=== PATIENT | female | born 1965 | race Caucasian/White ===

== ENCOUNTER 2022-05-23 14:54 | Inpatient (IN) | payer OTHER, SELFPAY ==
[2022-05-23] VITALS (8 sets, daily range): BP systolic 121–163; BP diastolic 80–98; PULSE 103–110; RESP 18–25; TEMP 37; O2SAT 92–95; BMI 27.8; BMI 28.2
--- NOTE | 2022-05-23 15:54 | ED_ITS ---
HPI - General Adult General Time Seen by Provider: 15:53 Date Seen: 05/23/22 Chief complaint: Weakness Stated complaint: covid+, possible pnuemonia Time Seen by Provider: 05/23/22 15:16 Source: patient History of Present Illness HPI narrative: 57-year-old female who comes in today with shortness of breath and weakness. Patient was diagnosed with COVID about 12 days ago. Increased shortness of breath the dressed couple of days with low oxygen saturation home. She is taking Tylenol for symptoms with minimal improvement. No nausea vomiting, decreased appetite but is maintaining fluids. No diarrhea. Some sinus congestion. No chest pain, no increasing lower extremity swelling. Continued nonproductive cough. Related Data Allergies Allergy/AdvReac Type Severity Reaction Status Date / Time iron dextran complex Allergy Verified 05/23/22 15:48 Sulfa (Sulfonamide Allergy Verified 05/23/22 15:48 Antibiotics) narcotic Allergy Uncoded 05/23/22 15:48 Review of Systems Status of ROS: Reports: 10 or more systems reviewed and unremarkable except as noted in History and below [facility] Medical History (Updated 05/23/22 @ 17:22 by See Barnard MD) Avascular necrosis Hypertension Kidney transplant as cause of abnormal reaction or later complication Lupus Multiple sclerosis Skin cancer Surgical History (Updated 05/23/22 @ 17:22 by See Barnard MD) History of hip replacement History of knee replacement Organ or tissue replacement Social History Smoking Status: Never smoker Do you use any of these nicotine containing products: None Second hand tobacco smoke exposure: No How often do you have a drink containing alcohol: never How often do you have six or more drinks on one occasion: Never AUDIT-C Alcohol total score: 0 Non-prescribed substance use: denies use service: No Exam Const: Vital Signs, click to edit/add: Vital Signs - 24 hr 05/23/22 15:13 05/23/22 15:30 05/23/22 16:00 Pulse Rate [Apical ] 105 H 106 H 103 H Respiratory Rate 24 23 23 Blood Pressure [Le ft Upper Arm] 144/89 H 121/82 125/80 Pulse Oximetry 92 94 93 05/23/22 16:30 05/23/22 17:00 Pulse Rate [Apical ] 103 H Respiratory Rate 25 H Blood Pressure [Le ft Upper Arm] 132/82 Pulse Oximetry 95 93 Documenting provider has reviewed patient's vital signs: yes Common normals: no apparent distress, oriented x3, alert and well nourished HENMT: Common normals: normocephalic, head/scalp atraumatic, external ears normal and external nose normal Head and scalp: normocephalic and atraumatic Nose: external nose normal External ear: external ears normal Eye: Common normals: PERRL and conjunctivae normal Conjunctiva: conjunctiva(e) normal Pupil: PERRL Neck & C-Spine: Common normals: full ROM, no lymphadenopathy and supple Chest: Common normals: palpation of chest normal Resp: Common normals: normal respiratory effort Other: Trace crackles on the right, decreased air movement on the left Cardio: Common normals: regular rhythm and no murmurs Rate: tachycardic Rhythm: regular rhythm GI: Common normals: Normal to inspection, nondistended, normoactive bowel sounds present, soft to palpation and non-tender Palpation: soft : Common normals: no CVA tenderness Bladder/kidney exam: no CVA tenderness Back & Pelvis: Common normals: no CVA tenderness and thoracic and lumbar spine normal to inspection Extremity: Common normals: normal to inspection, full ROM and no pedal edema Neuro: Common normals: oriented x3, CN's II-XII intact bilaterally and no focal motor deficits Sensorium/orientation: alert Psych: Common normals: mental status grossly normal Skin: Common normals: no rashes or lesions noted General skin exam: no rashes or lesions noted Course Course Hospital Course: Patient seen and examined, prior records are reviewed. Patient presents with cough and shortness of breath, known COVID positive. Differential diagnosis includes but not limited to bacterial pneumonia, bronchitis, COVID infection, pulmonary embolism, heart failure. Trace crackles on lung exam of the right, diminished breath sounds on left but air movement is present. No wheezes. Tachycardic. Concern for possible PE, labs and D-dimer ordered, IV fluids and DuoNeb was ordered along with chest x-ray. Reevaluation(s) Reevaluation #1: Updated patient with findings so far which include elevated creatinine to 3 an elevated BUN as well as bicarb of 15. This most likely is related to dehydration, IV fluids of already been initiated. D-dimer is still pending. Will contact [place] transplant service to discuss. Plan for admission. Time: 17:30 Consultations Consultation #1: Called [place] admission and transfer center to discuss with Transplant Service Time: 17:30 Consultation #2: Care discussed with Dr. Washington, hospitalist who accepts the patient for observation. Time: 17:45 Vital Signs Vital signs: Initial Vital Signs Temperature Source Temporal Artery Scan 05/23/22 15:13 Pulse Rate 105 H 05/23/22 15:13 Pulse Rhythm 05/23/22 15:13 Respiratory Rate 24 05/23/22 15:13 Blood Pressure 144/89 H 05/23/22 15:13 Blood Pressure Mean 107 05/23/22 15:13 Blood Pressure Position Supine 05/23/22 15:13 Pulse Oximetry 92 05/23/22 15:13 Oxygen Delivery Method 05/23/22 15:13 Vital Signs Pulse Rate 105 H 05/23/22 15:13 Respiratory Rate 24 05/23/22 15:13 Blood Pressure 144/89 H 05/23/22 15:13 Pulse Oximetry 92 05/23/22 15:13 Pulse Rate 103 H 05/23/22 16:30 Respiratory Rate 25 H 05/23/22 17:00 Blood Pressure 132/82 05/23/22 16:30 Pulse Oximetry 93 05/23/22 17:00 Medical Decision Making Medical Records Medical records reviewed: Yes I reviewed the patient's medical records Lab Data Lab results reviewed: Yes I reviewed the patient's lab results Labs: Lab Results 05/23/22 05/23/22 05/23/22 Range/Units 16:15 16:15 16:15 WBC (4.50-11.00) K/uL RBC (4.00-5.20) m/uL Hgb (12.0-16.0) gm/dL Hct (33.0-51.0) % MCV (80-100) fL MCH (26-34) pg MCHC (32-36) gm/dL RDW Coeff of Benja (11.5-15.5) % Plt Count (140-440) K/uL Neut % (Auto) (42.0-72.0) % Lymph % (Auto) (20-44) % [place] % (Auto) (0.0-11.0) % Eos % (Auto) (0.0-7.0) % Baso % (Auto) (0.0-3.0) % Neut # (Auto) (1.7-7.0) K/uL Lymph # (Auto) (0.90-2.90) K/uL [place] # (Auto) (0.00-0.90) K/UL Eos # (Auto) (0.00-0.50) K/uL Baso # (Auto) (0.00-0.30) K/uL Abs Immat Gran (auto) (0.00-0.30) K/uL D-Dimer Quant (PE/DVT) 0.93 H (0.00-0.50) ug/ml Sodium 134 L (135-149) mmol/L Potassium 5.5 H (3.6-5.1) mmol/L Chloride 106 (96-114) mmol/L Carbon Dioxide 15 L (20-32) mmol/L BUN 55 H (7-30) mg/dL Creatinine 3.0 H (0.5-1.5) mg/dL Estimated Creat Clear 17.53 Glucose 125 H (60-115) mg/dL Calcium 8.7 (8.4-10.6) mg/dL NT-Pro-B Natriuret Pep 1070 H Cancelled (0-125) PG/mL SARS-CoV-2 Ag (Rapid) POC Troponin I (0.01-0.04) ng/ml 05/23/22 05/23/22 05/23/22 Range/Units 16:15 16:15 17:50 WBC 11.56 H (4.50-11.00) K/uL RBC 3.32 L (4.00-5.20) m/uL Hgb 9.9 L (12.0-16.0) gm/dL Hct 30.6 L (33.0-51.0) % MCV 92 (80-100) fL MCH 30 (26-34) pg MCHC 32 (32-36) gm/dL RDW Coeff of Benja 14.9 (11.5-15.5) % Plt Count 234 (140-440) K/uL Neut % (Auto) 90.0 H (42.0-72.0) % Lymph % (Auto) 4.3 L (20-44) % [place] % (Auto) 4.2 (0.0-11.0) % Eos % (Auto) 0.0 (0.0-7.0) % Baso % (Auto) 0.2 (0.0-3.0) % Neut # (Auto) 10.40 H (1.7-7.0) K/uL Lymph # (Auto) 0.50 L (0.90-2.90) K/uL [place] # (Auto) 0.50 (0.00-0.90) K/UL Eos # (Auto) 0.00 (0.00-0.50) K/uL Baso # (Auto) 0.00 (0.00-0.30) K/uL Abs Immat Gran (auto) 0.15 (0.00-0.30) K/uL D-Dimer Quant (PE/DVT) (0.00-0.50) ug/ml Sodium (135-149) mmol/L Potassium (3.6-5.1) mmol/L Chloride (96-114) mmol/L Carbon Dioxide (20-32) mmol/L BUN (7-30) mg/dL Creatinine (0.5-1.5) mg/dL Estimated Creat Clear Glucose (60-115) mg/dL Calcium (8.4-10.6) mg/dL NT-Pro-B Natriuret Pep (0-125) PG/mL SARS-CoV-2 Ag (Rapid) Cancelled POC Troponin I 0.00 L (0.01-0.04) ng/ml Imaging Data Chest x-ray: My impression: Bilateral infiltrates, worse on the right Radiologist's impression: Agrees ECG Data Attestation: I personally reviewed and interpreted this ECG as follows: Prior ECG tracings: not available for review Interpretation: Performed at 3:40 p.m. demonstrates sinus tachycardia rate 101, normal axis, normal intervals, QTC was 435. No prior for comparison. Discharge Plan Discharge Clinical Impression: Acute kidney injury, COVID-19 virus infection, H/O kidney transplant Patient Disposition: Admitted As Inpatient
--- NOTE | 2022-05-23 15:58 | XR_ITS ---
Final Report Patient: FAUSTO BAUTISTA Facility:?[facility] Patient ID:?[id number] Site Patient ID:?[id number]. Site :?[id number] Study:?XRay Chest PORTABLE-05/23/2022 4:17:30 PM Ordering Physician:Jacinta Cui Final Report: Indication: Dyspnea. Technique: AP portable view of the chest. Comparison: May 19, 2022. Findings: The heart is normal in size. Bilateral lower lobe infiltrates are identified, larger on the right than the left. No pleural effusion or pneumothorax is identified. Impression: Bilateral lower lobe infiltrates, greater on the right than the left Dictated by Jennie Pleitez MD @ 05/23/2022 4:59:38 PM (Electronic Signature)
[2022-05-23] MEDS: 0.9 % SODIUM CHLORIDE 1000 ml 1,000 ML IV (16:19)
[2022-05-23] MEDS: IPRAT-ALBUT 0.5-2.5 MG/3 ML NEB 1 NEB IH (16:33)
[2022-05-23 17:08] LABS: Chloride* 106 mmol/L (96-114); Potassium* 5.5 mmol/L (3.6-5.1); Sodium* 134 mmol/L (135-149)
[2022-05-23 17:11] LABS: Est. Creatinine Clearance* 17.53
[2022-05-23 17:12] LABS: Blood Urea Nitrogen* 55 mg/dL (7-30); Calcium* 8.7 mg/dL (8.4-10.6); Carbon Dioxide* 15 mmol/L (20-32); Glucose* 125 mg/dL (60-115)
[2022-05-23] MEDS: LACTATED RINGERS 1000 ML 1,000 ML IV (17:20)
[2022-05-23] MEDS: ACETAMINOPHEN 325 MG TABLET 650 MG PO (17:26)
[2022-05-23 17:32] LABS: D Dimer Quantitative* 0.93 ug/ml (0.00-0.50)
[2022-05-23 17:33] LABS: Slide Review Reflex No
[2022-05-23 17:36] LABS: Basophils Percent Auto 0.2 % (0.0-3.0); Hematocrit 30.6 % (33.0-51.0); Hemoglobin* 9.9 gm/dL (12.0-16.0); Immature Granulocytes Abs Auto 0.15 K/uL (0.00-0.30); Lymphocytes Percent Auto 4.3 % (20-44); Mean Corpuscular HGB Conc 32 gm/dL (32-36); Mean Corpuscular Hemoglobin 30 pg (26-34); Mean Corpuscular Volume 92 fL (80-100); Monocytes Percent Auto 4.2 % (0.0-11.0); Platelet Count* 234 K/uL (140-440); RDW Coefficient of Variation % 14.9 % (11.5-15.5); Red Blood Count 3.32 m/uL (4.00-5.20); White Blood Count* 11.56 K/uL (4.50-11.00)
--- NOTE | 2022-05-23 17:37 | ED.NURSE ---
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 dr baires did explain plan. was tearful. in room and is very supportive.
[2022-05-23 17:49] LABS: NT Pro B Type NatriureticPept* 1070 PG/mL (0-125)
[2022-05-23 18:24] LABS: SARS Antigen* POSITIVE
--- NOTE | 2022-05-23 18:43 | ED.NURSE ---
was ok to give a sandwich per dr baires. thought her abd discomfort was from not eating. awaiting admission.
--- NOTE | 2022-05-23 19:41 | P.IMHP_ITS ---
Hospitalist- H&P: HPI History of Present Illness Time Seen by Provider: 19:40 Date Seen: 05/23/22 Chief complaint: covid+, possible pnuemonia Narrative: Holley Santos is a 57 year old female who presents with 12 day history of worsening fatigue, malaise, weakness, cough, dyspnea, anorexia, diarrhea, loss of taste and smell. About 12 days ago she had a positive COVID test. She had just begun to have symptoms of illness. She tested positive on May 11 for COVID infection. For the 1st several days she was doing quite well. She did not receive any treatment with antiviral is a or monoclonal antibody. She had had monoclonal antibody earlier this year. In the last several days he has gotten much worse with all of her symptoms getting worse. She has had intractable nonproductive cough. She has been feeling short of breath. Oxygen saturations at home have been in the low 90s. She is not aware of a fever but reports she rarely gets fevers when she is sick because of her immunosuppression. She has had diarrhea which she thinks in the last day or 2 might be getting a little better. She has had anorexia. She has had little to eat and drink. No vomiting. She had decreased sense of smell and taste. She has profound fatigue and malaise. She spent the weekend in bed. She has previously had a kidney transplant x2. She has stage 4 kidney disease with her creatinine normally around 2.1 and a GFR in the low 20s. She is on routine immunosuppression with prednisone 5 mg, CellCept, Prograf. Review of Systems Narrative: complete review of systems is unremarkable except as noted above. [facility] Medical History (Updated 05/23/22 @ 19:53 by Mesfin Washington MD) Acute on chronic kidney failure Anemia in chronic kidney disease Avascular necrosis Dyslipidemia Hypertension Immunosuppression Kidney transplant as cause of abnormal reaction or later complication Lupus Lupus glomerulonephritis Multiple sclerosis Pneumonia Skin cancer Stage 4 chronic kidney disease Surgical History (Updated 05/23/22 @ 19:53 by Mesfin Washington MD) H/O ankle fusion History of hip replacement History of knee replacement Organ or tissue replacement Family History (Updated 05/23/22 @ 19:47 by Mesfin Washington MD) Other Breast cancer Social History Smoking Status: Never smoker Do you use any of these nicotine containing products: None Second hand tobacco smoke exposure: No How often do you have a drink containing alcohol: never How often do you have six or more drinks on one occasion: Never AUDIT-C Alcohol total score: 0 Non-prescribed substance use: denies use service: No Meds Home Medications and Allergies Home Medications Medication Instructions Recorded Confirmed Type albuterol sulfate 90 mcg/actuation 2 inh INHALATION Q4H PRN 05/23/22 05/23/22 History aerosol inhaler allopurinol 100 mg tablet 200 mg PO DAILY 05/23/22 05/23/22 History amlodipine 2.5 mg tablet 2.5 mg PO DAILY 05/23/22 05/23/22 History atorvastatin 10 mg tablet 10 mg PO HS 05/23/22 05/23/22 History calcitriol 0.25 mcg capsule 0.25 mcg PO DAILY 05/23/22 05/23/22 History codeine 10 mg-guaifenesin 100 mg/5 5 ml PO Q4H PRN 05/23/22 05/23/22 History mL oral liquid estradiol 1 mg tablet 1 mg PO DAILY 05/23/22 05/23/22 History furosemide 20 mg tablet 20 mg PO DAILY 05/23/22 05/23/22 History lisinopril 20 mg tablet 20 mg PO DAILY 05/23/22 05/23/22 History metoprolol succinate 25 mg 25 mg PO DAILY 05/23/22 05/23/22 History tablet,extended release 24 hr mycophenolate mofetil 250 mg 250 mg PO BID 05/23/22 05/23/22 History capsule prednisone 5 mg tablet 15 mg PO DAILY 05/23/22 05/23/22 History progesterone micronized 200 mg 200 mg PO DAILY 05/23/22 05/23/22 History capsule sodium bicarbonate 650 mg tablet 1,300 mg PO BID 05/23/22 05/23/22 History tacrolimus 1 mg capsule, 2 mg PO Q12H 05/23/22 05/23/22 History immediate-release (Prograf) Allergies Allergy/AdvReac Type Severity Reaction Status Date / Time iron dextran complex Allergy Verified 05/23/22 15:48 Sulfa (Sulfonamide Allergy Verified 05/23/22 15:48 Antibiotics) narcotic Allergy Uncoded 05/23/22 15:48 Exam Narrative: Exam Narrative: she is alert and appears in no distress. Head is normal. Eyes normal. Oropharynx with small airway. Neck is supple without mass or adenopathy. Respirations with a rare basilar crackle. Otherwise clear to auscultation. Cardiovascular: S1, S2, regular rate and rhythm. Abdomen: Bowel sounds active. Abdomen is soft without tenderness or mass. External genitalia normal. Extr emities without edema. She has intact pedal pulses. Feet are somewhat cool to touch. There is no rash. Const: Vital Signs, click to edit/add: Vital Signs - 24 hr 05/23/22 15:13 05/23/22 15:30 05/23/22 16:00 Pulse Rate [Apical ] 105 H 106 H 103 H Respiratory Rate 24 23 23 Blood Pressure [Le ft Upper Arm] 144/89 H 121/82 125/80 Pulse Oximetry 92 94 93 05/23/22 16:30 05/23/22 17:00 05/23/22 17:30 Pulse Rate [Apical ] 103 H 110 H Respiratory Rate 25 H 18 Blood Pressure [Le ft Upper Arm] 132/82 147/83 H Pulse Oximetry 95 93 95 Hospitalist - H&P: Result Labs Labs: Short CBC 05/23/22 Range/Units 16:15 WBC 11.56 H (4.50-11.00) K/uL Hgb 9.9 L (12.0-16.0) gm/dL Hct 30.6 L (33.0-51.0) % Plt Count 234 (140-440) K/uL BMP 05/23/22 16:15 Sodium 134 L Potassium 5.5 H Chloride 106 Carbon Dioxide 15 L BUN 55 H Creatinine 3.0 H Glucose 125 H Calcium 8.7 Assessment and Plan Assessment and plan (1) Pneumonia: Status: Acute (2) Acute on chronic kidney failure: Status: Acute (3) Immunosuppression: Status: Acute (4) COVID-19 virus infection: Status: Acute Plan patient has relatively classic COVID infection with bilateral infiltrates on chest x-ray. Her course has been more severe and prolonged likely due to immunosuppression and chronic medical problems. Going to initiate antibiotics for community-acquired pneumonia given radiographic findings and her immunosuppression. If she is clinically improving these can be discontinued. She has not yet hypoxic so I will hold off on dexamethasone but will give her stress dose of prednisone at 3 Times her usual dose for 3 days pending her clinical course. 15 mg of prednisone daily for 3 days. If increasing inflammatory markers or worsening illness consider further increase in steroid dose. due to kidney disease and the timing of her illness she is a poor ruddy date for antivirals. Acute on chronic kidney disease. Normal creatinine is 2.1 now 3.0. Likely due to poor p.o. intake. She has been given IV fluids. Will continue maintenance fluids until her oral intake improves. Close monitoring of electrolytes, Renal function, fluid status and intake and output. temporary hold on lisinopril. Status post renal transplant. Continue normal doses of immunosuppression plus mild stress dose prednisone
[2022-05-23] MEDS: AZITHROMYCIN 250 MG TABLET PO (21:16)
[2022-05-23] MEDS: 0.9 % SODIUM CHLORIDE 1000 ml 1,000 ML 125 ML IV (21:23)
[2022-05-23] MEDS: cefTRIAXone 1 GM in 0.9 % SODIUM CHLORIDE Mini-bag 100 ML IVPB (21:26)
[2022-05-23] MEDS: SODIUM BICARBONATE 650 MG TABLET 1300 MG PO (22:30)
[2022-05-23] MEDS: estradioL 1 MG TABLET PO (22:31)
[2022-05-23] MEDS: ALBUTEROL SULFATE 2.5 MG/3 ML VIAL.NEB NEB (22:31)
[2022-05-23] MEDS: PROGESTERONE MICRONIZED 200 MG 200 EACH PO (22:33)
[2022-05-23] MEDS: mycophenolate mofetiL 250 MG CAPSULE PO (22:33)
[2022-05-24] VITALS (11 sets, daily range): BP systolic 142–166; BP diastolic 85–99; PULSE 100–114; RESP 18–24; TEMP 37.2–37.4; O2SAT 91–95
[2022-05-24] MEDS: ACETAMINOPHEN 325 MG TABLET PO ×2 (02:13→08:54)
--- NOTE | 2022-05-24 05:04 | PC.NURSE ---
Pt arrived from ED approx 2014, pleasant and cooperative. Pt appears anxious and worried about hospital admission. pt with non-productive cough throughout shift, lung sounds clear, diminished at bases, denies chest pain or headache. c/o sob at rest and with exertion. Pt desat to 88% on RA while sleeping, placed O2 1 LPM NC on pt to help maintain o2 >90% while sleeping. independent in room, pt removed nc to ambulate to br, upon return o2 sats dipped down to 82%, recovered quickly once NC placed back on. longer O2 tubing placed in room and encouraged pt to wear o2 while ambulating to br, pt compliant. 2 big zip lock bags of Pt home meds in room specific bin in med room waiting for pharmacy verification. pt requesting to use all home meds.
[2022-05-24] MEDS: 0.9 % SODIUM CHLORIDE 1000 ml 1,000 ML 125 ML IV (05:51)
[2022-05-24 07:33] LABS: Slide Review Reflex No
[2022-05-24 07:34] LABS: HCO3 VBG 16 mmol/L (21-28); PCO2 VBG 31 mmHG (40-50); PO2 VBG 35.3 mmHG (25-47); pH VBG 7.312 (7.32-7.43)
[2022-05-24 07:44] LABS: Hematocrit 27.6 % (33.0-51.0); Hemoglobin* 8.9 gm/dL (12.0-16.0); Mean Corpuscular HGB Conc 32 gm/dL (32-36); Mean Corpuscular Hemoglobin 30 pg (26-34); Mean Corpuscular Volume 93 fL (80-100); Platelet Count* 216 K/uL (140-440); Red Blood Count 2.97 m/uL (4.00-5.20); White Blood Count* 9.65 K/uL (4.50-11.00)
[2022-05-24 07:55] LABS: Chloride* 115 mmol/L (96-114); Sodium* 136 mmol/L (135-149)
[2022-05-24 07:56] LABS: Potassium* 4.8 mmol/L (3.6-5.1)
[2022-05-24 07:58] LABS: Creatinine* 2.2 mg/dL (0.5-1.5); Estimated Glomerular Filt Rate 25.83
[2022-05-24 07:59] LABS: Blood Urea Nitrogen* 45 mg/dL (7-30); Calcium* 7.5 mg/dL (8.4-10.6); Carbon Dioxide* 14 mmol/L (20-32); Glucose* 83 mg/dL (60-115)
[2022-05-24] MEDS: ALBUTEROL SULFATE 2.5 MG/3 ML VIAL.NEB NEB ×2 (08:56→15:46)
[2022-05-24] MEDS: allopurinoL 100 MG TABLET 200 MG PO (09:16)
[2022-05-24] MEDS: calcitrioL 0.25 MCG CAPSULE PO (09:17)
[2022-05-24] MEDS: FUROSEMIDE 20 MG TABLET PO (09:17)
[2022-05-24] MEDS: METOPROLOL SUCCINATE (XL) 25 MG TAB PO (09:18)
[2022-05-24] MEDS: mycophenolate mofetiL 250 MG CAPSULE PO ×2 (09:20→21:03)
[2022-05-24] MEDS: AMLODIPINE 2.5 MG PO (09:21)
[2022-05-24] MEDS: predniSONE 5 MG TABLET 15 MG PO (09:22)
[2022-05-24] MEDS: SODIUM BICARBONATE 650 MG TABLET 1300 MG PO ×2 (09:22→20:59)
[2022-05-24] MEDS: TACROLIMUS 1 MG PO ×2 (09:23→21:01)
[2022-05-24] MEDS: ONDANSETRON ODT 4 MG TAB PO (09:25)
--- NOTE | 2022-05-24 09:57 | CT_ITS ---
Final Report Patient: FAUSTO BAUTISTA Facility:?[facility] Patient ID:?[id number] Site Patient ID:?[id number]. Site :?[id number] Study:?CT Chest W/O-05/24/2022 11:15:57 AM Ordering Physician:Arline Belcher Final Report: Indication: COVID, hypoxia. Technique: CT of the chest without IV contrast. Coronal and sagittal reconstructions. Comparison: Chest radiograph 05/23/2022. Findings: Mild cardiomegaly. Normal caliber thoracic aorta and central pulmonary arteries. Coronary artery and mitral annulus calcifications. No pericardial effusion. Few mildly prominent mediastinal lymph nodes are likely reactive. The thyroid gland is normal in appearance. There are extensive patchy infiltrates throughout both lungs compatible with COVID pneumonia. These are greatest in the lower lungs. Trace right pleural effusion. No pneumothorax. No discrete pulmonary nodules identified. No central endobronchial lesion. Elevation of the right hemidiaphragm. The gallbladder is distended with surrounding inflammation. Marked atrophy of both kidneys. The visualized unenhanced upper abdomen is otherwise unremarkable. Mild degenerative changes of the spine. Multiple small scattered sclerotic lesions could represent bone islands but indeterminate. Sclerosis in both humeral heads may be related to avascular necrosis. Old right posterior rib fractures. Impression: 1. Extensive bilateral pulmonary infiltrates compatible with COVID pneumonia. 2. Mild cardiomegaly. Trace right pleural effusion. 3. Distended gallbladder with evidence of inflammation. Findings are concerning for cholecystitis. Recommend further evaluation with right upper quadrant ultrasound. 4. Marked bilateral renal atrophy. 5. Multiple small scattered osseous sclerotic lesions could represent bone islands but are indeterminate. Correlate with any history of malignancy. Please note that all CT scans at this facility use dose modulation, iterative reconstruction, and/or weight-based dosing when appropriate to reduce radiation dose to as low as reasonably achievable. Dictated by Oanh Nascimento MD @ 05/24/2022 12:06:48 PM ----- ADDENDUM ----- The report was faxed and confirmed received with Simi Mcdonald at 12:10 p.m. on 05/24/2022. Dictated by Oanh Nascimento MD @ May 24 2022 12:27PM (Electronic Signature)
--- NOTE | 2022-05-24 10:29 | RESP.RT ---
Spoke with Pt about COVID and her pneumonia. She is quite anxious. Answered all of her questions. Re assured her that RT was her and following her, and watching her vital signs. She is on 2L of oxygen with a SPO2 of 93% Nursing did give her a neb treatment Pt has a frequent dry harsh cough. BBS decreased but clear.
[2022-05-24] MEDS: ONDANSETRON 2 MG/ML inj 4 MG IVP (10:30)
[2022-05-24] MEDS: ATORVASTATIN 10 MG TABLET PO (10:47)
[2022-05-24] MEDS: dexAMETHasone 2 MG TABLET 6 MG PO (11:56)
--- NOTE | 2022-05-24 14:29 | P.IMPN_ITS ---
Progress Note: A&P Assessment and plan (1) Acute respiratory failure, unspecified whether with hypoxia or hypercapnia: Status: Acute Assessment and Plan: Patient is vaccinated. However now requiring 2 L of nasal cannula oxygen to keep sats greater than 90%. Originally her dose of oral prednisone was increased from 5-15 mg. I am holding this. I am starting dexamethasone 6 mg p.o. q.day. continue oxygen therapy as needed. (2) COVID-19 virus infection: Status: Acute Assessment and Plan: Day 13 of infection. Vaccinated been immunosuppressed. CT this morning shows bilateral opacities consistent with COVID. She continues on IV antibiotics but I am awaiting a procalcitonin. (3) Gallstones and inflammation of gallbladder without obstruction: Status: Acute Assessment and Plan: Awaiting abdominal ultrasound later today. Liver function panel and procalcitonin are pending. Patient denies any symptoms of specifically relating to acute cholecystitis. (4) Acute on chronic kidney failure: Status: Acute Assessment and Plan: RESHMA has improved. She is near her baseline of a creatinine of 2.2 this morning. (5) Organ or tissue replacement: Problem details: kidney transplant x2 Status: Acute Assessment and Plan: Noted. Patient would like to restart her THOMAS-inhibitor as soon as possible. Her hyperkalemia and creatinine have returned to her baseline. I will start this tomorrow. (6) Immunosuppression: Status: Acute Assessment and Plan: Plan Continued her home regimen. Subjective Interval history: Daily Progress Note - Hospital Medicine Day #: 2 CC: Shortness of breath, diarrhea, acute on chronic renal failure OVERNIGHT UPDATES FROM STAFF & MED, LAB, IMAGING UPDATES Patient feels a little stronger this morning and into the afternoon. Her appetite has returned. She was able to move about her room and sit in the chair for over an hour. She still becomes quite dyspneic with activity. Nursing staf marisela has had increased her oxygen to 2 L per nasal cannula to keep her sats greater than 90%. Specifically we discussed symptoms of acute cholecystitis and she denies any issue with abdominal bloating after eating, abdominal pain, nausea vomiting. She still has her gallbladder. And is not aware of any previous history. Blood pressure 142/88, 166/95 Pulse in the low 100s Respiratory rate 24 Pulse ox 95% on 2 L Weight 72.3 kilos Leukocytosis is downtrending 11.5-9.6 Hemoglobin is down 1 point. From 9.9-8.9. This is likely related to chronic renal disease. D-dimer 0.9 Blood gas shows very mild respiratory acidosis 7.3, pCO2 31, bicarb 16 This morning her creatinine is down to 2.2, 2.1 being her baseline. BUN is down to 45. She has a chronic metabolic acidosis related to chronic renal disease. C reactive protein is 8.0. BNP [address] chest this mornin. Extensive bilateral pulmonary infiltrates compatible with COVID pneumonia. 2. Mild cardiomegaly. Trace right pleural effusion. 3. Distended gallbladder with evidence of inflammation. Findings are concerning for cholecystitis. Recommend further evaluation with right upper quadrant ultrasound. 4. Marked bilateral renal atrophy. 5. Multiple small scattered osseous sclerotic lesions could represent bone islands but are indeterminate. Correlate with any history of malignancy. Review of Systems: See subjective Cardiac: No new chest pain/pressure/palpitations. Respiratory: Dyspnea may be marginally improved GI: No abdominal bloating Objective: Vitals: see above Lungs: Crackles bilaterally. Worse on the right. No wheezing. Cardiac: S1S2. Abdomen: Benign. Disposition/Potential discharge - Likely to return to previous living situation. Total time is 35 minutes with greater than 50% spent in counseling and coordination of care. Exam Const: Vital Signs, click to edit/add: Vital Signs - 24 hr 05/23/22 15:13 05/23/22 15:30 05/23/22 16:00 Temperature Pulse Rate [Apical ] 105 H 106 H 103 H Pulse Rate [Right Pulse Oximeter] Respiratory Rate 24 23 23 Blood Pressure [Le ft Upper Arm] 144/89 H 121/82 125/80 Blood Pressure [Ri ght Arm] Pulse Oximetry 92 94 93 05/23/22 16:30 05/23/22 17:00 05/23/22 17:30 Temperature Pulse Rate [Apical ] 103 H 110 H Pulse Rate [Right Pulse Oximeter] Respiratory Rate 25 H 18 Blood Pressure [Le ft Upper Arm] 132/82 147/83 H Blood Pressure [Ri ght Arm] Pulse Oximetry 95 93 95 05/23/22 20:28 05/23/22 23:22 05/24/22 00:14 Temperature 98.6 F 98.6 F Pulse Rate [Apical ] Pulse Rate [Right Pulse Oximeter] 107 H 108 H Respiratory Rate 20 18 Blood Pressure [Le ft Upper Arm] Blood Pressure [Ri ght Arm] 163/98 H 145/85 H Pulse Oximetry 93 92 93 05/24/22 03:04 05/24/22 07:00 05/24/22 07:58 Temperature 99.0 F 99.3 F Pulse Rate [Apical ] Pulse Rate [Right Pulse Oximeter] 110 H 104 H 114 H Respiratory Rate 20 Blood Pressure [Le ft Upper Arm] Blood Pressure [Ri ght Arm] 163/88 H 166/95 H Pulse Oximetry 91 92 05/24/22 11:00 Temperature 99.3 F Pulse Rate [Apical ] Pulse Rate [Right Pulse Oximeter] 107 H Respiratory Rate 24 Blood Pressure [Le ft Upper Arm] Blood Pressure [Ri ght Arm] 142/88 H Pulse Oximetry 95 Labs Labs: Laboratory Results - last 24 hr 05/23/22 05/23/22 05/23/22 16:15 16:15 16:15 WBC RBC Hgb Hct MCV MCH MCHC RDW Coeff of Benja Plt Count Neut % (Auto) Lymph % (Auto) Mcleod % (Auto) Eos % (Auto) Baso % (Auto) Neut # (Auto) Lymph # (Auto) Mcleod # (Auto) Eos # (Auto) Baso # (Auto) Abs Immat Gran (auto) D-Dimer Quant (PE/DVT) 0.93 H VBG pH VBG pCO2 VBG pO2 VBG HCO3 Sodium 134 L Potassium 5.5 H Chloride 106 Carbon Dioxide 15 L BUN 55 H Creatinine 3.0 H Estimated Creat Clear 17.53 Glucose 125 H Calcium 8.7 C-Reactive Protein NT-Pro-B Natriuret Pep 1070 H Cancelled SARS-CoV-2 Ag (Rapid) POC Troponin I 05/23/22 05/23/22 05/23/22 16:15 16:15 17:50 WBC 11.56 H RBC 3.32 L Hgb 9.9 L Hct 30.6 L MCV 92 MCH 30 MCHC 32 RDW Coeff of Benja 14.9 Plt Count 234 Neut % (Auto) 90.0 H Lymph % (Auto) 4.3 L Mcleod % (Auto) 4.2 Eos % (Auto) 0.0 Baso % (Auto) 0.2 Neut # (Auto) 10.40 H Lymph # (Auto) 0.50 L Mcleod # (Auto) 0.50 Eos # (Auto) 0.00 Baso # (Auto) 0.00 Abs Immat Gran (auto) 0.15 D-Dimer Quant (PE/DVT) VBG pH VBG pCO2 VBG pO2 VBG HCO3 Sodium Potassium Chloride Carbon Dioxide BUN Creatinine Estimated Creat Clear Glucose Calcium C-Reactive Protein NT-Pro-B Natriuret Pep SARS-CoV-2 Ag (Rapid) Cancelled POC Troponin I 0.00 L 05/23/22 05/24/22 05/24/22 17:50 07:11 07:11 WBC 9.65 RBC 2.97 L Hgb 8.9 L Hct 27.6 L MCV 93 MCH 30 MCHC 32 RDW Coeff of Benja Plt Count 216 Neut % (Auto) Lymph % (Auto) Mcleod % (Auto) Eos % (Auto) Baso % (Auto) Neut # (Auto) Lymph # (Auto) Mcleod # (Auto) Eos # (Auto) Baso # (Auto) Abs Immat Gran (auto) D-Dimer Quant (PE/DVT) VBG pH VBG pCO2 VBG pO2 VBG HCO3 Sodium 136 Potassium 4.8 Chloride 115 H Carbon Dioxide 14 L BUN 45 H Creatinine 2.2 H Estimated Creat Clear 23.90 Glucose 83 Calcium 7.5 L C-Reactive Protein 8.0 H NT-Pro-B Natriuret Pep SARS-CoV-2 Ag (Rapid) POSITIVE POC Troponin I 05/24/22 07:11 WBC RBC Hgb Hct MCV MCH MCHC RDW Coeff of Benja Plt Count Neut % (Auto) Lymph % (Auto) Mcleod % (Auto) Eos % (Auto) Baso % (Auto) Neut # (Auto) Lymph # (Auto) Mcleod # (Auto) Eos # (Auto) Baso # (Auto) Abs Immat Gran (auto) D-Dimer Quant (PE/DVT) VBG pH 7.312 L VBG pCO2 31 L VBG pO2 35.3 VBG HCO3 16 L Sodium Potassium Chloride Carbon Dioxide BUN Creatinine Estimated Creat Clear Glucose Calcium C-Reactive Protein NT-Pro-B Natriuret Pep SARS-CoV-2 Ag (Rapid) POC Troponin I
--- NOTE | 2022-05-24 14:35 | PC.NURSE ---
Shift 0700- 1530 Upon entering pt room, pt on 1L oxygen nasal cannula, requested to remove for room air. Stats decreased to 87-89%, nasal cannula reapplied with 2L oxygen running, stats improved to 90-93%. Crackles heard bibasilar, SOB on exertion, educated on deep breathing and cough and use of IS. Pt observed using frequently throughout shift. BP elevated but improved after morning med administration. Denies any pain. C/o nausea during morning med administration, PO zofran given, pt gag on taste and had 80ml emesis. Nurse observed undigested Cellect and Prograf. IV zofran administered per MD order and Cellect and Prograf readmistered per MD agreement. Ambulated to toilet about 4 times, ate 25-50% meals, stated appetite up since getting sick. Pt was anxious and fearful about diagnosis and prognosis and about kidney function labs. Improved after talking with hospitalist and staff. Partial bed bath done.
[2022-05-24] MEDS: 0.9 % SODIUM CHLORIDE 1000 ml 1,000 ML 75 ML IV (14:59)
[2022-05-24 15:30] LABS: HCO3 VBG 13 mmol/L (21-28); PCO2 VBG 23 mmHG (40-50); PO2 VBG 64.3 mmHG (25-47); pH VBG 7.356 (7.32-7.43)
[2022-05-24 15:50] LABS: Hematocrit 25.7 % (33.0-51.0); Hemoglobin* 8.3 gm/dL (12.0-16.0); Mean Corpuscular HGB Conc 32 gm/dL (32-36); Mean Corpuscular Hemoglobin 30 pg (26-34); Mean Corpuscular Volume 92 fL (80-100); Platelet Count* 224 K/uL (140-440); Red Blood Count 2.78 m/uL (4.00-5.20); White Blood Count* 12.29 K/uL (4.50-11.00)
[2022-05-24 15:55] LABS: Albumin* 3.1 g/dL (3.3-5.0); Chloride* 113 mmol/L (96-114); Sodium* 133 mmol/L (135-149)
[2022-05-24 15:56] LABS: Potassium* 5.3 mmol/L (3.6-5.1)
[2022-05-24 15:58] LABS: Bilirubin Total* 0.4 mg/dL (0.1-1.5); Creatinine* 2.3 mg/dL (0.5-1.5); Est. Creatinine Clearance* 22.86; Estimated Glomerular Filt Rate 24.49
[2022-05-24 15:59] LABS: Alanine Aminotransferase* 11 U/L (4-35); Alkaline Phosphatase* 57 U/L (40-150); Aspartate Amino Transferase* 28 U/L (12-35); Blood Urea Nitrogen* 40 mg/dL (7-30); Calcium* 7.3 mg/dL (8.4-10.6); Carbon Dioxide* 13 mmol/L (20-32); Glucose* 249 mg/dL (60-115); Total Protein* 5.5 g/dL (6.0-8.3)
[2022-05-24 16:03] LABS: Slide Review Reflex No
[2022-05-24 16:08] LABS: NT Pro B Type NatriureticPept* 2840 PG/mL (0-125)
[2022-05-24 16:33] LABS: C Reactive Protein* 12.2 mg/dL (0.5-1.0)
[2022-05-24 17:35] LABS: Procalcitonin* 0.23 ng/mL (<0.50)
--- NOTE | 2022-05-24 19:00 | US_ITS ---
Final Report Patient: FAUSTO BAUTISTA Facility:?[facility] Patient ID:?[id number] Site Patient ID:?[id number]. Site :?[id number] Study:?US Abdomen -05/24/2022 7:02:56 PM Ordering Physician:Arline Belcher Final Report: INDICATION: Gallbladder inflammation suspected on chest CT.. TECHNIQUE: Ultrasound abdomen limited. Sonographic images of the right upper quadrant were obtained using orozco-scale and color Doppler images. COMPARISON: CT of the chest from May 24, 2022. FINDINGS: Liver: Normal in size and echotexture. No suspicious masses. No intrahepatic biliary dilatation. Gallbladder: No stones or sludge. Gallbladder wall measures up to 3 millimeters in thickness. There is a small amount of pericholecystic fluid present adjacent to the gallbladder. No gallbladder wall hyperemia.. Common bile duct: 5 mm. Pancreas: Unremarkable. Tail is not well visualized Right kidney: Transplant kidney. Normal echotexture. Measures 9.9 x 5.2 x 5.7 centimeters. Vasculature: Proximal abdominal aorta and IVC are unremarkable. IMPRESSION: Gallbladder wall measures up to 3 millimeters with small amount of pericholecystic fluid. No hyperemia. No gallstones. This is equivocal for cholecystitis. If there is continued clinical concern consider HIDA. Dictated by Kevin Richardson MD @ 05/24/2022 7:45:01 PM (Electronic Signature)
[2022-05-24] MEDS: AZITHROMYCIN 250 MG TABLET PO (19:15)
[2022-05-24] MEDS: cefTRIAXone 1 GM in 0.9 % SODIUM CHLORIDE Mini-bag 100 ML IVPB (19:16)
[2022-05-24] MEDS: Progesterone Micronized 200 MG 200 EACH PO (21:00)
[2022-05-24] MEDS: estradioL 1 MG TABLET PO (21:02)
[2022-05-24] MEDS: guaiFENesin 100 MG/ML CUP PO (22:01)
--- NOTE | 2022-05-24 22:14 | PC.NURSE ---
Patient is pleasant and cooperative. She denies pain throughout shift. Dry, hacking cough. She is up ad anoop and tolerates well, though does admit to SOB with exertion. Appetite is poor. She remains on 2L O2 with saturations in low-mid 90s%. HR is ~100bpm.
[2022-05-25] VITALS (14 sets, daily range): BP systolic 122–158; BP diastolic 72–96; PULSE 95–110; RESP 18–22; TEMP 36.6–36.8; O2SAT 92–96
[2022-05-25] MEDS: guaiFENesin 100 MG/ML CUP PO ×2 (03:35→14:44)
[2022-05-25] MEDS: 0.9 % SODIUM CHLORIDE 1000 ml 1,000 ML 75 ML IV (03:53)
--- NOTE | 2022-05-25 05:07 | PC.NURSE ---
Addendum entered by Bg Saha RN 05/25/22 05:16: Crackles to middle lobes and diminished bases. IVF cont's. Original Note: VSS 2LNC. Denies pain. Has a non prod cough/SOB that increases after exertion and Robitussin given. IS used to 1500. Up to BR w/O2 @ 2LNC. Up ad anoop tolerating diet ind w/cares
[2022-05-25 07:22] LABS: HCO3 VBG 15 mmol/L (21-28); PCO2 VBG 28 mmHG (40-50); PO2 VBG 37.1 mmHG (25-47)
[2022-05-25 07:34] LABS: Hematocrit 24.6 % (33.0-51.0); Hemoglobin* 8.1 gm/dL (12.0-16.0); Mean Corpuscular HGB Conc 33 gm/dL (32-36); Mean Corpuscular Hemoglobin 31 pg (26-34); Mean Corpuscular Volume 93 fL (80-100); Platelet Count* 211 K/uL (140-440); Red Blood Count 2.65 m/uL (4.00-5.20); White Blood Count* 5.62 K/uL (4.50-11.00)
[2022-05-25 07:38] LABS: Slide Review Reflex No
[2022-05-25 08:00] LABS: Chloride* 115 mmol/L (96-114)
[2022-05-25 08:01] LABS: Potassium* 5.7 mmol/L (3.6-5.1); Sodium* 136 mmol/L (135-149)
[2022-05-25 08:03] LABS: Bilirubin Total* 0.3 mg/dL (0.1-1.5); Creatinine* 2.3 mg/dL (0.5-1.5); Est. Creatinine Clearance* 22.86; Estimated Glomerular Filt Rate 24.49
[2022-05-25 08:04] LABS: Alanine Aminotransferase* 12 U/L (4-35); Alkaline Phosphatase* 54 U/L (40-150); Aspartate Amino Transferase* 28 U/L (12-35); Blood Urea Nitrogen* 41 mg/dL (7-30); Calcium* 7.2 mg/dL (8.4-10.6); Carbon Dioxide* 14 mmol/L (20-32); Glucose* 165 mg/dL (60-115); Total Protein* 5.4 g/dL (6.0-8.3)
[2022-05-25 08:05] LABS: Magnesium* 1.6 mg/dL (1.5-2.6)
[2022-05-25 08:21] LABS: C Reactive Protein* 13.8 mg/dL (0.5-1.0)
[2022-05-25] MEDS: AMLODIPINE 2.5 MG PO (08:51)
[2022-05-25] MEDS: ATORVASTATIN 10 MG TABLET PO (08:51)
[2022-05-25] MEDS: FUROSEMIDE 20 MG TABLET 40 MG PO (08:53)
[2022-05-25] MEDS: METOPROLOL SUCCINATE (XL) 25 MG TAB PO (08:54)
[2022-05-25] MEDS: calcitrioL 0.25 MCG CAPSULE PO (08:55)
[2022-05-25] MEDS: allopurinoL 100 MG TABLET 200 MG PO (08:55)
[2022-05-25] MEDS: SODIUM BICARBONATE 650 MG TABLET 1300 MG PO ×2 (08:56→21:26)
[2022-05-25] MEDS: mycophenolate mofetiL 250 MG CAPSULE PO ×2 (08:56→21:25)
[2022-05-25] MEDS: TACROLIMUS 1 MG PO ×2 (08:57→21:26)
--- NOTE | 2022-05-25 10:58 | PM.IMPN1 ---
Progress Note: A&P Assessment and plan (1) Acute on chronic kidney failure: Status: Acute (2) Acute respiratory failure, unspecified whether with hypoxia or hypercapnia: Status: Acute (3) COVID-19 virus infection: Status: Acute (4) Immunosuppression: Status: Acute (5) Hyperkalemia: Status: Acute Subjective Interval history: Daily Progress Note - Hospital Medicine Day #: 3 CC: covid 19 pneumonia, acute hypoxic respiratory failure, hyperkalemia, acute on chronic renal failure OVERNIGHT UPDATES FROM STAFF & MED, LAB, IMAGING UPDATES Hyperkalemia Abdominal ultrasound LFTs Review of Systems: See subjective Cardiac: No new chest pain/pressure/palpitations. Respiratory: Dyspnea may be marginally improved GI: No abdominal bloating Objective: Vitals: see above Lungs: Crackles bilaterally. Worse on the right. No wheezing. Cardiac: S1S2. Abdomen: Benign. Disposition/Potential discharge - Likely to return to previous living situation. Total time is 35 minutes with greater than 50% spent in counseling and coordination of care. Exam Const: Vital Signs, click to edit/add: Vital Signs - 24 hr 05/24/22 11:00 05/24/22 15:00 05/24/22 18:56 Temperature 99.3 F 99.2 F 98.9 F Pulse Rate [Right Pulse Oximeter] 107 H 104 H 104 H Respiratory Rate 24 20 20 Blood Pressure [Ri ght Arm] 142/88 H 146/89 H 156/85 H Pulse Oximetry 95 92 93 05/24/22 22:00 05/24/22 23:31 05/24/22 23:33 Temperature 98.9 F Pulse Rate [Right Pulse Oximeter] 100 Respiratory Rate 24 24 Blood Pressure [Ri ght Arm] Pulse Oximetry 93 05/24/22 23:34 05/25/22 04:15 05/25/22 08:10 Temperature 99.0 F 98.2 F 98.1 F Pulse Rate [Right Pulse Oximeter] 100 95 98 Respiratory Rate 24 20 Blood Pressure [Ri ght Arm] 164/99 H 147/88 H 142/80 H Pulse Oximetry 93 93 92 Labs Labs: Laboratory Results - last 24 hr 05/24/22 05/24/22 05/24/22 15:23 15:23 15:23 WBC 12.29 H RBC 2.78 L Hgb 8.3 L Hct 25.7 L MCV 92 MCH 30 MCHC 32 Plt Count 224 VBG pH VBG pCO2 VBG pO2 VBG HCO3 Sodium 133 L Potassium 5.3 H Chloride 113 Carbon Dioxide 13 L BUN 40 H Creatinine 2.3 H Estimated Creat Clear 22.86 Glucose 249 H Calcium 7.3 L Magnesium Total Bilirubin 0.4 AST 28 ALT 11 Alkaline Phosphatase 57 C-Reactive Protein 12.2 H NT-Pro-B Natriuret Pep 2840 H Total Protein 5.5 L Albumin 3.1 L Procalcitonin 0.23 TSH 1.200 05/24/22 05/25/22 05/25/22 15:23 07:10 07:10 WBC 5.62 RBC 2.65 L Hgb 8.1 L Hct 24.6 L MCV 93 MCH 31 MCHC 33 Plt Count 211 VBG pH 7.356 VBG pCO2 23 L VBG pO2 64.3 H VBG HCO3 13 L Sodium 136 Potassium 5.7 H Chloride 115 H Carbon Dioxide 14 L BUN 41 H Creatinine 2.3 H Estimated Creat Clear 22.86 Glucose 165 H Calcium 7.2 L Magnesium 1.6 Total Bilirubin 0.3 AST 28 ALT 12 Alkaline Phosphatase 54 C-Reactive Protein 13.8 H NT-Pro-B Natriuret Pep Total Protein 5.4 L Albumin 3.0 L Procalcitonin TSH 05/25/22 07:10 WBC RBC Hgb Hct MCV MCH MCHC Plt Count VBG pH 7.330 VBG pCO2 28 L VBG pO2 37.1 VBG HCO3 15 L Sodium Potassium Chloride Carbon Dioxide BUN Creatinine Estimated Creat Clear Glucose Calcium Magnesium Total Bilirubin AST ALT Alkaline Phosphatase C-Reactive Protein NT-Pro-B Natriuret Pep Total Protein Albumin Procalcitonin TSH
[2022-05-25] MEDS: IPRAT-ALBUT 0.5-2.5 MG/3 ML NEB 1 NEB IH ×2 (12:07→22:32)
[2022-05-25] MEDS: dexAMETHasone 2 MG TABLET 6 MG PO (12:07)
[2022-05-25 17:31] LABS: Chloride* 112 mmol/L (96-114)
[2022-05-25 17:32] LABS: Potassium* 5.4 mmol/L (3.6-5.1); Sodium* 135 mmol/L (135-149)
[2022-05-25 17:34] LABS: Carbon Dioxide* 12 mmol/L (20-32); Creatinine* 2.3 mg/dL (0.5-1.5); Est. Creatinine Clearance* 22.86; Estimated Glomerular Filt Rate 24.49
[2022-05-25 17:35] LABS: Blood Urea Nitrogen* 45 mg/dL (7-30); Calcium* 7.6 mg/dL (8.4-10.6); Glucose* 298 mg/dL (60-115)
[2022-05-25 17:41] LABS: Lab Add On Test New Spec Needed
--- NOTE | 2022-05-25 17:54 | PC.NURSE ---
SHIFT REPORT: PATIENT PLEASANT AND COOPERATIVE, ALERT AND ORIENTED, UP AD DELMY IN ROOM TO BATHROOM, TOLERATING FAIRLY SOB WITH ACTIVITY AND PATIENT EXPRESSING FEELING SOB AT REST, NOTED SHALLOW BREATHS PATIENT EXPRESSED IT BEING HARD TO TAKE A DEEP BREATH, SATS ON 2L NC IN THE LOW 90S, DECLINING PAIN, COUGH WITH MINIMAL SPUTUM PRODUCTION, TOLERATING REGULAR DIET EATING 75% OF MEALS
[2022-05-25] MEDS: FUROSEMIDE 10 MG/ML inj 20 MG IV (18:45)
--- NOTE | 2022-05-25 19:55 | PC.NURSE ---
Patient has given direct number to consult with her kidney transplant MD @ [phone] if needed.
[2022-05-25] MEDS: BENZOCAINE/MENTHOL 1 EACH LOZENGE MUCOUS MEM (20:16)
[2022-05-25] MEDS: ALBUTEROL SULFATE 2.5 MG/3 ML VIAL.NEB NEB (20:34)
[2022-05-25] MEDS: Progesterone Micronized 200 MG 200 EACH PO (21:24)
[2022-05-25] MEDS: estradioL 1 MG TABLET PO (21:25)
[2022-05-26] VITALS: BP 147/96; PULSE 94; RESP 18; TEMP 36.6; O2SAT 94
[2022-05-26 03:43] VITALS: BP 145/85; PULSE 102; RESP 22; TEMP 36.9; O2SAT 94
[2022-05-26] MEDS: IPRAT-ALBUT 0.5-2.5 MG/3 ML NEB 1 NEB IH (05:29)
--- NOTE | 2022-05-26 06:13 | PC.NURSE ---
[id number]: Patient pleasant and cooperative. Denies pain. C/o consistent dry cough. PRN lozenge and neb administered along with ice chips to provide moderate relief. Independent in room. Denies N/V. Spouse Bill in to visit. Blood transfusion complete w/o difficulty. Patient appeared to rest well during noc with cough much improved. Patient had a teary and emotional episode around 0230 with worries of COVID and how it will impact her life going forward given her chronic immunocompromised state. Questions answered and therapeutic communication utilized. O2 sats 93-95% on 2 Lt NC. O2 weaned to 1 Lt NC at 0530 with sats 90-91%.
[2022-05-26 08:04] LABS: HCO3 VBG 14 mmol/L (21-28); PCO2 VBG 24 mmHG (40-50); PO2 VBG 78.6 mmHG (25-47); pH VBG 7.369 (7.32-7.43)
[2022-05-26 08:05] LABS: Hematocrit 32.7 % (33.0-51.0); Hemoglobin* 10.8 gm/dL (12.0-16.0); Immature Granulocytes Abs Auto 0.51 K/uL (0.00-0.30); Lymphocytes Percent Auto 2.5 % (20-44); Mean Corpuscular HGB Conc 33 gm/dL (32-36); Mean Corpuscular Hemoglobin 29 pg (26-34); Mean Corpuscular Volume 88 fL (80-100); Monocytes Percent Auto 4.8 % (0.0-11.0); Neutrophils Percent Auto 88.3 % (42.0-72.0); Platelet Count* 217 K/uL (140-440); RDW Coefficient of Variation % 14.6 % (11.5-15.5); Red Blood Count 3.73 m/uL (4.00-5.20); White Blood Count* 11.56 K/uL (4.50-11.00)
[2022-05-26 08:20] LABS: Albumin* 3.1 g/dL (3.3-5.0); Chloride* 114 mmol/L (96-114)
[2022-05-26 08:21] LABS: Potassium* 4.9 mmol/L (3.6-5.1); Sodium* 136 mmol/L (135-149)
[2022-05-26 08:23] LABS: Bilirubin Total* 0.4 mg/dL (0.1-1.5); Creatinine* 2.2 mg/dL (0.5-1.5); Estimated Glomerular Filt Rate 25.83
[2022-05-26 08:24] LABS: Alanine Aminotransferase* 15 U/L (4-35); Alkaline Phosphatase* 73 U/L (40-150); Aspartate Amino Transferase* 28 U/L (12-35); Blood Urea Nitrogen* 45 mg/dL (7-30); Calcium* 7.5 mg/dL (8.4-10.6); Carbon Dioxide* 14 mmol/L (20-32); Glucose* 259 mg/dL (60-115); Magnesium* 1.5 mg/dL (1.5-2.6); Total Protein* 5.5 g/dL (6.0-8.3)
[2022-05-26 08:27] LABS: C Reactive Protein* 6.4 mg/dL (0.5-1.0)
[2022-05-26 08:33] VITALS: BP 169/94; PULSE 116; RESP 32; TEMP 36.6; O2SAT 94
[2022-05-26 08:33] LABS: NT Pro B Type NatriureticPept* 6230 PG/mL (0-125)
[2022-05-26] MEDS: allopurinoL 100 MG TABLET 200 MG PO (08:46)
[2022-05-26] MEDS: ATORVASTATIN 10 MG TABLET PO (08:47)
[2022-05-26] MEDS: calcitrioL 0.25 MCG CAPSULE PO (08:47)
[2022-05-26] MEDS: FUROSEMIDE 20 MG TABLET 40 MG PO (08:48)
[2022-05-26] MEDS: METOPROLOL SUCCINATE (XL) 25 MG TAB PO (08:49)
[2022-05-26] MEDS: AMLODIPINE 2.5 MG PO (08:50)
[2022-05-26] MEDS: mycophenolate mofetiL 250 MG CAPSULE PO (08:50)
[2022-05-26] MEDS: SODIUM BICARBONATE 650 MG TABLET 1300 MG PO (08:51)
[2022-05-26] MEDS: TACROLIMUS 1 MG PO (08:52)
[2022-05-26] MEDS: guaiFENesin 100 MG/ML CUP PO (08:53)
[2022-05-26 09:00] LABS: Slide Review Reflex Yes
[2022-05-26 09:05] LABS: Procalcitonin* 0.22 ng/mL (<0.50)
[2022-05-26 09:27] VITALS: PULSE 116; RESP 32; O2SAT 94
[2022-05-26] MEDS: dexAMETHasone 2 MG TABLET 6 MG PO (11:37)
[2022-05-26] MEDS: ALBUTEROL SULFATE 2.5 MG/3 ML VIAL.NEB NEB (11:47)
[2022-05-26 12:10] VITALS: BP 156/98; PULSE 112; RESP 32; TEMP 36.8; O2SAT 93
[2022-05-26 14:10] LABS: Slide Review Acceptable Review (Acceptable)
--- NOTE | 2022-05-26 14:48 | PC.NURSE ---
End of Shift: Patient pleasant and cooperative. Patient vitally stable, lungs clear, BS WNL, IV removed catheter intact. Patient on room air with sats 90-95%, when falling asleep patient desated to 86%. Patient is independent in room and denies pain. Patient has a dry cough, cough med given and albuterol neb given. Cough improved after neb was given. Patient showered and awaiting discharge.
--- NOTE | 2022-05-26 16:05 | PC.NURSE ---
d/c: pt d/c to home @ 1557 via wheelchair accompanied by her spouse. d/c paperwork and teaching provided, all questions answered. belongings form reviewed and signed - 2 bags of meds given to pt. pts nurse from [facility] called before we walked out of the room and said she will be in touch with the patient and that she will be seeing her on Sunday05/30/22. pt tearful as were got outside stating, i can finally breathe
--- NOTE | 2022-05-26 16:29 | PC.SOCIAL ---
Social work: Received call from pt's [place] rn case manager, Crista (phone [phone]) offering assistance with discharge planning and connection to community resources if needed.
--- NOTE | 2022-05-26 20:53 | P.DS_ITS ---
DS: Providers Provider Date of admission: 05/23/22 19:15 Primary care physician: Machelle Lord PA-C Admitting Clinician: Mesfin Washington MD Attending Physician on discharge: Simi Mcdonald MD DS: Diagnosis Discharge Diagnosis (1) Acute respiratory failure, unspecified whether with hypoxia or hypercapnia: Status: Acute (2) COVID-19 virus infection: Status: Acute (3) Acute on chronic kidney failure: Status: Acute (4) Immunosuppression: Status: Acute (5) Hyperkalemia: Status: Acute DS: Summary Hospital Course Hospital Course: HOSPITALIST DISCHARGE SUMMARY ATTENDING PHYSICIAN: Simi Mcdonald MD FINAL DIAGNOSIS: COVID-19 pneumonitis with acute hypoxic respiratory failure RESHMA superimposed on CKD Renal transplant history Chronic immunosuppression HOSPITAL FOLLOWUP ISSUES: 1. Primary care/Nephrology. Her creatinine, potassium, electrolytes recheck next week. REFERRALS WHILE ADMITTED: RT, OT, PT REFERRALS AFTER DISCHARGE: None BRIEF HOSPITAL COURSE: Holley was admitted with COVID-19 pneumonitis. She was on 2 L of nasal cannula oxygen. She was previously vaccinated received immunotherapy in the acute phase of her disease. However she progressed to severe disease with hypoxia. She received oral dexamethasone. She was not given Remdesivir or any other medications secondary to her renal status. Her creatinine was up to 3.0 at worst. Her baseline is 2.1. She was transfused because she has a chronic anemia that was made worse by her acute renal failure. She felt much better and was on room air the morning after her transfusion. She was discharged on oral dexamethasone and her other medications. VITAL SIGN, MEDICATION, LAB/MICRO, IMAGING SUMMARY (full details available in account tabs or by records request) She was satting 93% on room air. Her high blood pressure was 156/98, we had held her dose of lisinopril several times related to hyperkalemia. She was mildly tachycardic at 1:12 a.m.. Her respiratory rate was mildly elevated. She was afebrile. Her CBC on discharge revealed an increase in her hemoglobin to 10.8. Leukocytosis to 11.5 and normal platelets. Blood gas was reassuring. Normal pH. No pCO2 retention. Normal potassium at 4.9. Creatinine was 2.2, BUN 45. CRP down trending. Her proBNP was 6000 at discharge which is quite a bit of a jump. She was given IV Lasix between her units of blood. No signs of acute heart failure on the day of discharge. Chest CT Impression: 1. Extensive bilateral pulmonary infiltrates compatible with COVID pneumonia. 2. Mild cardiomegaly. Trace right pleural effusion. 3. Distended gallbladder with evidence of inflammation. Findings are concerning for cholecystitis. Recommend further evaluation with right upper quadrant ultrasound. 4. Marked bilateral renal atrophy. 5. Multiple small scattered osseous sclerotic lesions could represent bone islands but are indeterminate. Correlate with any history of malignancy. As a follow-up to the distended gallbladder, it. She had normal LFTs and a normal l abdominal ultrasound. No clinical symptoms consistent with cholecystitis. I explained osseous sclerotic lesions. No history of malignancy. History of renal failure and transplant likely explains this. DISCHARGE MEDICATIONS: See Reconciled list REVIEW OF SYSTEMS No new chest pain or dyspnea Pain controlled No voiding difficulties Tolerating diet challenge PHYSICAL EXAM: CONSTITUTIONAL: Still coughing. But feels much stronger. More ambulatory. VITAL SIGNS: see record. HEENT: Normocephalic, atraumatic. PERRL, EOMI, conjunctivae pink, no scleral icterus. Ears and nose externally normal. Pharynx normal. NECK: No JVD. No carotid bruit, no thyromegaly, no adenopathy. CHEST: Much improved. No wheezing. HEART: S1 and S2 normal. Edema ABDOMEN: Soft, nontender. Normal bowel sounds. MUSCULOSKELETAL: No gross joint deformity or swelling. NEURO: Cranial nerves intact. Grossly intact. No asymmetric findings. SKIN: No rashes, petechiae, concerning changes PSYCHIATRIC: Mood euthymic. DISPOSITION: Time spent on discharge 37 minutes. Status at Discharge Functional status at discharge: independent ambulation Time Spent with Patient Time attestation: Total time spent providing and/or coordinating discharge services: Time spent: Greater than 30 minutes Exam Const: Vital Signs, click to edit/add: Vital Signs - 24 hr 05/25/22 21:32 05/25/22 22:40 05/25/22 23:00 Temperature 98.3 F 97.9 F Pulse Rate 100 95 Pulse Rate [Right Pulse Oximeter] Respiratory Rate 18 18 20 Blood Pressure 142/89 H 147/96 H Blood Pressure [Ri ght Arm] Pulse Oximetry 96 94 94 05/26/22 00:00 05/26/22 03:43 05/26/22 08:33 Temperature 97.9 F 98.4 F 98 F Pulse Rate Pulse Rate [Right Pulse Oximeter] 94 102 H 116 H Respiratory Rate 18 22 32 H Blood Pressure Blood Pressure [Ri ght Arm] 147/96 H 145/85 H 169/94 H Pulse Oximetry 94 94 94 05/26/22 09:27 05/26/22 12:10 Temperature 98.2 F Pulse Rate Pulse Rate [Right Pulse Oximeter] 116 H 112 H Respiratory Rate 32 H 32 H Blood Pressure Blood Pressure [Ri ght Arm] 156/98 H Pulse Oximetry 94 93 DS: Data Data Completed and Pending Labs on day of discharge: Labs from last 24 hours 05/26/22 05/26/22 05/26/22 07:55 07:55 07:55 WBC 11.56 H RBC 3.73 L Hgb 10.8 L Hct 32.7 L MCV 88 MCH 29 MCHC 33 RDW Coeff of Benja 14.6 Plt Count 217 Neut % (Auto) 88.3 H Lymph % (Auto) 2.5 L [place] % (Auto) 4.8 Eos % (Auto) 0.0 Baso % (Auto) 0.0 Neut # (Auto) 10.20 H Lymph # (Auto) 0.30 L [place] # (Auto) 0.60 Eos # (Auto) 0.00 Baso # (Auto) 0.00 Abs Immat Gran (auto) 0.51 H Diff Slide Review Acceptable Review VBG pH 7.369 VBG pCO2 24 L VBG pO2 78.6 H VBG HCO3 14 L Sodium 136 Potassium 4.9 Chloride 114 Carbon Dioxide 14 L BUN 45 H Creatinine 2.2 H Estimated Creat Clear 23.90 Glucose 259 H Calcium 7.5 L Magnesium 1.5 Total Bilirubin 0.4 AST 28 ALT 15 Alkaline Phosphatase 73 C-Reactive Protein 6.4 H NT-Pro-B Natriuret Pep 6230 H Total Protein 5.5 L Albumin 3.1 L Procalcitonin 0.22 Crossmatch (AHG) 05/25/22 07:10 WBC RBC Hgb Hct MCV MCH MCHC RDW Coeff of Benja Plt Count Neut % (Auto) Lymph % (Auto) [place] % (Auto) Eos % (Auto) Baso % (Auto) Neut # (Auto) Lymph # (Auto) [place] # (Auto) Eos # (Auto) Baso # (Auto) Abs Immat Gran (auto) Diff Slide Review VBG pH VBG pCO2 VBG pO2 VBG HCO3 Sodium Potassium Chloride Carbon Dioxide BUN Creatinine Estimated Creat Clear Glucose Calcium Magnesium Total Bilirubin AST ALT Alkaline Phosphatase C-Reactive Protein NT-Pro-B Natriuret Pep Total Protein Albumin Procalcitonin Crossmatch (AHG) See Detail Discharge Plan Discharge Disposition: Home, Self-Care Date of Admission: 05/23/22 19:15 Attending Provider on Discharge: Simi Mcdonald Primary Care Provider: Machelle Lord Condition: Improved Anticipated Discharge Date/Time: 05/26/22 13:40 Discharge Medications: New albuterol sulfate 90 mcg/actuation HFA aerosol inhaler 2 puff inhalation Q4-6H PRN (Reason: shortness of breath or wheezing) Qty: 6.7 1RF dexamethasone 6 mg tablet 6 mg PO DAILY Qty: 2 0RF Continued atorvastatin 10 mg tablet 10 mg PO HS 0RF Label Comments: TAKE 1 TABLET BY MOUTH AT BEDTIME FOR CHOLESTEROL lisinopril 20 mg tablet 20 mg PO BID 0RF Label Comments: TAKE 1 TABLET (20 MG TOTAL) BY MOUTH IN THE MORNING AND 1 TABLET (20 MG TOTAL) IN THE EVENING. amlodipine 2.5 mg tablet 2.5 mg PO DAILY 0RF Label Comments: TAKE 1 TABLET BY MOUTH 1 TIME EACH DAY. allopurinol 100 mg tablet 200 mg PO DAILY 0RF Label Comments: TAKE 2 TABLETS BY MOUTH IN THE MORNING. estradiol 1 mg tablet 1 mg PO DAILY 0RF Label Comments: TAKE 1 TABLET BY MOUTH EVERY DAY sodium bicarbonate 650 mg tablet 1,300 mg PO BID 0RF Label Comments: TAKE 2 TABLETS (1,300 MG TOTAL) BY MOUTH 2 (TWO) TIMES A DAY. codeine-guaifenesin 10-100 mg/5 mL liquid 5 - 10 ml PO Q6H PRN (Reason: cough) 0RF Label Comments: 5-10 ML PO Q6H furosemide 20 mg tablet 40 mg PO DAILY 0RF Label Comments: TAKE 2 TABLETS BY MOUTH EVERY DAY metoprolol succinate 25 mg tablet extended release 24 hr 25 mg PO BID 0RF Label Comments: TAKE 1 TABLET (25 MG TOTAL) BY MOUTH 2 (TWO) TIMES A DAY DO NOT CRUSH OR CHEW. calcitriol 0.25 mcg capsule 0.25 mcg PO DAILY 0RF Label Comments: TAKE 1 CAPSULE (0.25 MCG TOTAL) BY MOUTH 1 (ONE) TIME EACH DAY mycophenolate mofetil 250 mg capsule 250 mg PO BID 0RF tacrolimus [Prograf] 1 mg capsule 2 mg PO BID 0RF progesterone micronized 200 mg capsule 200 mg PO HS 0RF aspirin 81 mg tablet,delayed release (DR/EC) 81 mg PO DAILY 0RF acetaminophen 500 mg tablet 1,000 mg PO Q6H PRN0RF colchicine 0.6 mg tablet 0.6 mg PO DAILY PRN0RF Held prednisone 5 mg tablet 5 mg PO DAILY 0RF Hold Instructions: Hold for now, start after your dexamethasone pulse dosing Label Comments: TAKE 1 TABLET (5 MG TOTAL) BY MOUTH DAILY. Discontinued albuterol sulfate 90 mcg/actuation HFA aerosol inhaler 2 inh INHALATION Q4H PRN (Reason: shortness of breath or wheezing) 0RF Label Comments: INHALE 2 PUFFS EVERY 4 HOURS NEEDED Discharge Orders: Discharge Order (Routine); Ordered 05/26/22 Ordered By: Simi Mcdonald Patient Education: Albuterol (By breathing), Dexamethasone (By mouth), COVID-19 (Coronavirus Disease 2019) (DC) Activity Level: Activity as Tolerated Discharge Diet: Regular Follow Up Appointments: Machelle Lord PA-C [Primary Care Provider] - Forms: [facility] Info Instructions
[2022-06-05 15:00] LABS: Lab Add On Test New Spec Needed
== END 2022-05-26 15:57 | disposition home or self-care (01) | DRG 177 ==
LOC: ED 17:22 → MEDSURG 19:32
PROVIDERS: Family Medicine; Admitting Provider Family Medicine; Emergency Provider Family Medicine; PCP Physician Assistant Medical; Visit Provider Family Medicine
DX: U07.1 COVID-19 (principal); J12.82 Pneumonia due to coronavirus disease 2019; J96.01 Acute respiratory failure with hypoxia; N17.9 Acute kidney failure, unspecified; Z94.0 Kidney transplant status; N18.4 Chronic kidney disease, stage 4 (severe); E87.2 Acidosis; G35 Multiple sclerosis; Z85.828 Personal history of other malignant neoplasm of skin; I12.9 Hypertensive chronic kidney disease with stage 1 through stage 4 chronic kidney disease, or unspecified chronic kidney disease; D63.1 Anemia in chronic kidney disease; M32.14 Glomerular disease in systemic lupus erythematosus; K80.80 Other cholelithiasis without obstruction; E87.5 Hyperkalemia
CPT/HCPCS: 36415; 36430; 71045; 71250; 76705; 80048; 80053; 82803; 83735; 83880; 84145; 84443; 84484; 85025; 85027; 85379; 86140; 86850; 86900; 86901; 86922; 87426; 94640; 94761; 99285; A9270; J0696; J1940; J2405; J7030; J7120; J7512; P9016; S0169

== ENCOUNTER 2022-06-07 15:31 | Outpatient (REF) | payer OTHER, SELFPAY | END 2022-06-07 15:32 | disposition home or self-care (01) | LOC: LAB 15:31 | PROVIDERS: PCP Physician Assistant Medical; Visit Provider Physician Assistant Medical | DX: D50.9 Iron deficiency anemia, unspecified (principal) | CPT/HCPCS: 36415; 80053; 82043; 82570; 82607; 82728; 83540; 83550; 85007; 85027 ==

== ENCOUNTER 2022-06-21 09:55 | Outpatient (CLI) | payer OTHER, SELFPAY | END 2022-06-21 09:56 | disposition home or self-care (01) | LOC: LKVREF 09:58 | PROVIDERS: PCP Physician Assistant Medical; Visit Provider Physician Assistant Medical | DX: R35.0 Frequency of micturition (principal) | CPT/HCPCS: 87086 ==

== ENCOUNTER 2022-06-28 13:07 | Outpatient (REF) | payer OTHER, SELFPAY ==
[2022-06-28 13:27] LABS: Basophils Percent Auto 0.3 % (0.0-3.0); Eosinophils Percent Auto 0.7 % (0.0-7.0); Hematocrit 33.4 % (33.0-51.0); Hemoglobin* 10.6 gm/dL (12.0-16.0); Lymphocytes Percent Auto 17.7 % (20-44); Mean Corpuscular HGB Conc 32 gm/dL (32-36); Mean Corpuscular Hemoglobin 30 pg (26-34); Mean Corpuscular Volume 94 fL (80-100); Neutrophils Percent Auto 72.1 % (42.0-72.0); Platelet Count* 232 K/uL (140-440); RDW Coefficient of Variation % 15.1 % (11.5-15.5); Red Blood Count 3.57 m/uL (4.00-5.20); White Blood Count* 13.52 K/uL (4.50-11.00)
[2022-06-28 14:31] LABS: Slide Review Reflex No
== END 2022-06-28 13:08 | disposition home or self-care (01) ==
LOC: NPINS 13:07
PROVIDERS: PCP Physician Assistant Medical; Visit Provider Physician Assistant Medical
DX: D63.1 Anemia in chronic kidney disease (principal); N18.4 Chronic kidney disease, stage 4 (severe)
CPT/HCPCS: 85025

== ENCOUNTER 2022-06-29 11:49 | Outpatient (CLI) | payer OTHER, SELFPAY ==
--- NOTE | 2022-06-29 12:00 | CRLHL7_ITS ---
For Patients: As a result of the Century Cures Act, medical imaging exams and procedure reports are released immediately into your electronic medical record. You may view this report before your referring provider. If you have questions, please contact your health care provider. INDICATION: 57 year-old female. Right upper quadrant abdominal pain. History of renal transplant. TECHNIQUE: 5.4 mCi Tc-99m labeled mebrofenin. 1.5 mcg Kinevac IV. FINDINGS: Normal uptake and excretion of tracer by the liver. Activity is identified promptly within the gallbladder and the extrahepatic biliary tree between 5 and 10 minutes after injection. The gallbladder continues to fill up to 1 hour. After the administration of Kinevac, the gallbladder ejection fraction is calculated at 13 percent which is below the lower limit of normal of 35 percent. IMPRESSION: 1. No evidence for cystic duct or common duct obstruction. No biliary leak. 2. Abnormally low gallbladder ejection fraction of 13 percent which can be seen in chronic cholecystitis or biliary dyskinesia. Please correlate clinically. Dictated by James Lainez MD @ 06/29/2022 2:56:02 PM (Electronically Signed)
== END 2022-06-29 11:50 | disposition home or self-care (01) ==
PROVIDERS: PCP Physician Assistant Medical; Visit Provider Physician Assistant Medical
DX: R10.11 Right upper quadrant pain (principal)
CPT/HCPCS: 78227; A9537; J2805

== ENCOUNTER 2022-08-01 16:14 | Outpatient (REF) | payer OTHER, SELFPAY ==
[2022-08-01 17:22] LABS: Hematocrit 32.1 % (33.0-51.0); Hemoglobin* 10.3 gm/dL (12.0-16.0); Mean Corpuscular HGB Conc 32 gm/dL (32-36); Mean Corpuscular Hemoglobin 31 pg (26-34); Mean Corpuscular Volume 96 fL (80-100); Red Blood Count 3.36 m/uL (4.00-5.20)
[2022-08-01 17:29] LABS: Slide Review Reflex No
[2022-08-01 18:42] LABS: Basophils Percent Auto 0.5 % (0.0-3.0); Eosinophils Percent Auto 1.1 % (0.0-7.0); Lymphocytes Percent Auto 20.4 % (20-44); Monocytes Percent Auto 6.1 % (0.0-11.0); Neutrophils Percent Auto 70.4 % (42.0-72.0); Platelet Count* 249 K/uL (140-440); RDW Coefficient of Variation % 14.2 % (11.5-15.5); White Blood Count* 13.21 K/uL (4.50-11.00)
== END 2022-08-01 16:15 | disposition home or self-care (01) ==
LOC: NPINS 16:14
PROVIDERS: PCP Physician Assistant Medical; Visit Provider Physician Assistant Medical
DX: D50.9 Iron deficiency anemia, unspecified (principal); D63.1 Anemia in chronic kidney disease; N18.4 Chronic kidney disease, stage 4 (severe)
CPT/HCPCS: 85025

== ENCOUNTER 2022-08-01 16:18 | Outpatient (REF) | payer OTHER, SELFPAY ==
[2022-08-01 17:36] LABS: Albumin* 4.1 g/dL (3.3-5.0); Chloride* 107 mmol/L (96-114); Potassium* 3.9 mmol/L (3.6-5.1); Sodium* 140 mmol/L (135-149)
[2022-08-01 17:39] LABS: Blood Urea Nitrogen* 42 mg/dL (7-30); Carbon Dioxide* 21 mmol/L (20-32); Creatinine* 2.3 mg/dL (0.5-1.5); Estimated Glomerular Filt Rate 24 ml/min; Glucose* 85 mg/dL (60-115); Phosphorus* 4.2 mg/dL (2.5-4.5)
[2022-08-01 17:40] LABS: Calcium* 8.8 mg/dL (8.4-10.6)
[2022-08-01 17:51] LABS: PTH Intact* 202 pg/mL (15-65)
[2022-08-01 18:01] LABS: Total Protein Urine 34 mg/dL
[2022-08-01 18:02] LABS: Creatinine Urine 134.3 mg/dL
[2022-08-01 19:53] LABS: Basophils Percent Auto 0.5 % (0.0-3.0); Eosinophils Percent Auto 1.1 % (0.0-7.0); Hematocrit 32.3 % (33.0-51.0); Hemoglobin* 10.3 gm/dL (12.0-16.0); Immature Granulocytes Abs Auto 0.15 K/uL (0.00-0.30); Mean Corpuscular HGB Conc 32 gm/dL (32-36); Mean Corpuscular Hemoglobin 31 pg (26-34); Mean Corpuscular Volume 96 fL (80-100); Monocytes Percent Auto 5.7 % (0.0-11.0); Neutrophils Percent Auto 71.6 % (42.0-72.0); Platelet Count* 257 K/uL (140-440); RDW Coefficient of Variation % 14.3 % (11.5-15.5); Red Blood Count 3.37 m/uL (4.00-5.20); White Blood Count* 13.22 K/uL (4.50-11.00)
[2022-08-01 19:56] LABS: Slide Review Reflex No
[2022-08-01 20:09] LABS: Magnesium* 1.8 mg/dL (1.5-2.6); Uric Acid* 5.4 mg/dL (2.2-8.4)
== END 2022-08-01 16:19 | disposition home or self-care (01) ==
LOC: NPINS 16:18
PROVIDERS: PCP Physician Assistant Medical; Visit Provider Physician Assistant Medical
DX: D63.1 Anemia in chronic kidney disease (principal); N18.4 Chronic kidney disease, stage 4 (severe); M32.14 Glomerular disease in systemic lupus erythematosus
CPT/HCPCS: 80069; 82570; 83735; 83970; 84156; 84550; 85025

== ENCOUNTER 2022-09-25 13:58 | Outpatient (REF) | payer OTHER, SELFPAY ==
[2022-09-25 15:07] LABS: Mean Corpuscular HGB Conc 33 gm/dL (32-36); Mean Corpuscular Hemoglobin 31 pg (26-34); Mean Corpuscular Volume 94 fL (80-100)
[2022-09-25 15:09] LABS: Albumin* 4.1 g/dL (3.3-5.0)
[2022-09-25 15:10] LABS: Chloride* 107 mmol/L (96-114); Sodium* 137 mmol/L (135-149)
[2022-09-25 15:11] LABS: Appearance Urine Clear (Clear); Bilirubin Urine Negative (Negative); Blood Urine Negative (Negative); Color Urine Yellow (Yellow); Glucose Urine Negative (Negative); Ketones Urine Negative (Negative); Leukocyte Esterase Urine Trace (Negative); Nitrite Urine Negative (Negative); Protein Urine Trace (Negative); Specific Gravity Urine 1.015 (1.000-1.030); Urobilinogen Urine 0.2 (0.2-1.0); pH Urine 6.5 (5.0-8.5)
[2022-09-25 15:12] LABS: Carbon Dioxide* 21 mmol/L (20-32); Creatinine* 2.5 mg/dL (0.5-1.5); Estimated Glomerular Filt Rate 22 ml/min
[2022-09-25 15:13] LABS: Alanine Aminotransferase* 12 U/L (4-35); Alkaline Phosphatase* 69 U/L (40-150); Aspartate Amino Transferase* 17 U/L (12-35); Bilirubin Total* 0.4 mg/dL (0.1-1.5); Blood Urea Nitrogen* 48 mg/dL (7-30); Calcium* 8.4 mg/dL (8.4-10.6); Glucose* 71 mg/dL (60-115); Total Protein* 6.3 g/dL (6.0-8.3)
[2022-09-25 15:14] LABS: Iron* 98 ug/dL (37-170); Magnesium* 1.8 mg/dL (1.5-2.6)
[2022-09-25 15:21] LABS: RBC Urine 0-2 (0-2); Squamous Epithelial Cell Urine Few (None-Few)
[2022-09-25 15:25] LABS: Total Protein Urine 32 mg/dL
[2022-09-25 15:26] LABS: Creatinine Urine 127.5 mg/dL
[2022-09-25 15:29] LABS: Hemoglobin A1C* 5.46 % (0-5.6)
[2022-09-25 15:38] LABS: Total Iron Binding Capacity 276 ug/dL (265-497)
[2022-09-25 15:39] LABS: Percent Iron Saturation 36 % (20-50)
[2022-09-25 16:36] LABS: HDL Cholesterol* 49 mg/dL (>=50); LDL Cholesterol Calculated 55 mg/dL (<100)
[2022-09-25 16:44] LABS: Cholesterol* 149 mg/dL (90-199); Triglycerides* 234 mg/dL (40-149)
[2022-09-26 05:33] LABS: Hematocrit 29.2 % (33.0-51.0); Hemoglobin* 9.5 gm/dL (12.0-16.0); Platelet Count* 242 K/uL (140-440); Slide Review Reflex No; White Blood Count* 12.01 K/uL (4.50-11.00)
== END 2022-09-25 13:59 | disposition home or self-care (01) ==
LOC: NPINS 13:58
PROVIDERS: Internal Medicine Nephrology; PCP Physician Assistant Medical
DX: N18.30 Chronic kidney disease, stage 3 unspecified (principal); E78.49 Other hyperlipidemia; D63.1 Anemia in chronic kidney disease; N19 Unspecified kidney failure
CPT/HCPCS: 80053; 80061; 81003; 81015; 82310; 82570; 82728; 83036; 83540; 83550; 83735; 83970; 84156; 85027; 87086

== ENCOUNTER 2022-10-11 22:04 | Outpatient (REF) | payer OTHER, SELFPAY ==
[2022-10-11 22:51] LABS: Appearance Urine Clear (Clear); Bilirubin Urine Negative (Negative); Blood Urine Negative (Negative); Color Urine Yellow (Yellow); Glucose Urine Negative (Negative); Ketones Urine Negative (Negative); Leukocyte Esterase Urine Negative (Negative); Nitrite Urine Negative (Negative); Protein Urine Negative (Negative); Specific Gravity Urine 1.015 (1.000-1.030); Urobilinogen Urine 0.2 (0.2-1.0)
[2022-10-11 23:01] LABS: RBC Urine 0-2 (0-2); Squamous Epithelial Cell Urine Few (None-Few); WBC Urine 0-2 (0-5)
== END 2022-10-11 22:05 | disposition home or self-care (01) ==
LOC: LAB 22:04
PROVIDERS: PCP Physician Assistant Medical; Visit Provider Internal Medicine Nephrology
DX: Z94.0 Kidney transplant status (principal)
CPT/HCPCS: 81001

== ENCOUNTER 2022-11-03 12:47 | Outpatient (CLI) | payer OTHER, SELFPAY | END 2022-11-03 12:48 | disposition home or self-care (01) | LOC: LKVREF 11-14 10:37 | PROVIDERS: PCP Physician Assistant Medical; Visit Provider Registered Nurse | DX: R30.0 Dysuria (principal); R35.0 Frequency of micturition | CPT/HCPCS: 87086; 87186 ==

== ENCOUNTER 2022-12-22 12:46 | Outpatient (REF) | payer OTHER, SELFPAY ==
[2022-12-22 13:22] LABS: Creatinine* 2.4 mg/dL (0.5-1.5); Estimated Glomerular Filt Rate 23 ml/min
== END 2022-12-22 12:47 | disposition home or self-care (01) ==
LOC: NPINS 12:46
PROVIDERS: PCP Physician Assistant Medical; Visit Provider Internal Medicine Nephrology
DX: N18.4 Chronic kidney disease, stage 4 (severe) (principal)
CPT/HCPCS: 80197; 82565

== ENCOUNTER 2023-01-03 11:25 | Outpatient (CLI) | payer OTHER, SELFPAY ==
[2023-01-03 21:37] LABS: Albumin* 4.1 g/dL (3.3-5.0)
[2023-01-03 21:40] LABS: Alanine Aminotransferase* 16 U/L (4-35); Alkaline Phosphatase* 71 U/L (40-150); Aspartate Amino Transferase* 20 U/L (12-35); Bilirubin Direct* 0.2 mg/dL (0.0-0.5); Bilirubin Total* 0.5 mg/dL (0.1-1.5); Lipase* 252 U/L (23-300); Total Protein* 6.5 g/dL (6.0-8.3)
== END 2023-01-03 11:26 | disposition home or self-care (01) ==
PROVIDERS: PCP Physician Assistant Medical; Visit Provider Physician Assistant Medical
DX: I10 Essential (primary) hypertension (principal); R07.9 Chest pain, unspecified; D64.9 Anemia, unspecified; N18.4 Chronic kidney disease, stage 4 (severe)
CPT/HCPCS: 80076; 83690

== ENCOUNTER 2023-01-16 13:42 | Outpatient (CLI) | payer OTHER, SELFPAY ==
[2023-01-16 15:00] VITALS: BP 149/80; PULSE 99
--- NOTE | 2023-01-16 18:15 | P.STN_ITS ---
Stress Test Note Date Time Seen by Provider: 14:45 Date Seen: 01/16/23 Date of test: 01/16/23 Providers Primary care provider: Machelle Lord Stress test physician: Ibeth Mabry Stress Test Note Stress test ordered: Stress Echo Indication for test: Chest pain Stress test medicine: None Results discussion: Resting EKG: sinus rhythm, 85 beats per minute. Resting blood pressure: 151/90 Stress test: Patient exercised on the treadmill following standard Alex protocol. She had significant artifact while exercising, the transmission of the EKG tracings did unfortunately turn off unbeknownst to us. We did get it turned back on but had to wait while the interactive video technician was performing some of his initial images. Patient exercised to 4 minutes 15 seconds before needing to stop due to shortness of breath. She did exercised to a level of 6 Mets and a maximum heart rate of 159 beats per minute which was 114% of a calculated target of 139. Calculated rate pressure product was 26,166. no definitive ischemia noted. Patient had no chest pain. Impression: Subjectively negative, objectively negative EKG portion of this stress test. Follow up suggested: Patient will await the cardiology reading of the echo images to couple this for a full formal diagnostic. She will wait to hear from her primary care provider whom order this once the test results are back.
== END 2023-01-16 13:43 | disposition home or self-care (01) ==
LOC: STRESS 13:43
PROVIDERS: PCP Physician Assistant Medical; Visit Provider Physician Assistant Medical
DX: R07.9 Chest pain, unspecified (principal)
CPT/HCPCS: 93016; 93325; 93351

== ENCOUNTER 2023-03-16 12:22 | Outpatient (REF) | payer OTHER, SELFPAY ==
[2023-03-16 12:50] LABS: Basophils Percent Auto 0.2 % (0.0-3.0); Eosinophils Percent Auto 0.8 % (0.0-7.0); Hematocrit 32.3 % (33.0-51.0); Hemoglobin* 10.5 gm/dL (12.0-16.0); Immature Granulocytes Pct Auto 1.2 %; Lymphocytes Percent Auto 17.3 % (20-44); Mean Corpuscular HGB Conc 33 gm/dL (32-36); Mean Corpuscular Hemoglobin 31 pg (26-34); Mean Corpuscular Volume 95 fL (80-100); Monocytes Percent Auto 7.8 % (0.0-11.0); Neutrophils Percent Auto 72.7 % (42.0-72.0); Platelet Count* 254 K/uL (140-440); RDW Coefficient of Variation % 13.7 % (11.5-15.5); White Blood Count* 13.28 K/uL (4.50-11.00)
[2023-03-16 12:54] LABS: Albumin* 4.3 g/dL (3.3-5.0); Chloride* 105 mmol/L (96-114); Potassium* 3.9 mmol/L (3.6-5.1); Sodium* 139 mmol/L (135-149)
[2023-03-16 12:56] LABS: Slide Review Reflex No
[2023-03-16 12:57] LABS: Blood Urea Nitrogen* 39 mg/dL (7-30); Carbon Dioxide* 26 mmol/L (20-32); Creatinine* 2.5 mg/dL (0.5-1.5); Estimated Glomerular Filt Rate 22 ml/min; Glucose* 102 mg/dL (60-115); Phosphorus* 4.5 mg/dL (2.5-4.5)
[2023-03-16 12:58] LABS: Magnesium* 1.7 mg/dL (1.5-2.6)
[2023-03-18 18:57] LABS: Tacrolimus by HPLC-MS/MS 4.8 ng/mL
== END 2023-03-16 12:23 | disposition home or self-care (01) ==
LOC: NPINS 12:22
PROVIDERS: PCP Physician Assistant Medical; Referring Provider Internal Medicine; Visit Provider Internal Medicine Nephrology
DX: N18.30 Chronic kidney disease, stage 3 unspecified (principal); D63.1 Anemia in chronic kidney disease; D50.9 Iron deficiency anemia, unspecified
CPT/HCPCS: 80048; 80069; 80197; 83735; 85025

== ENCOUNTER 2023-05-14 14:48 | Outpatient (REF) | payer OTHER, SELFPAY ==
[2023-05-14 16:33] LABS: Appearance Urine Clear (Clear); Bilirubin Urine Negative (Negative); Blood Urine 1+ (Negative); Color Urine Yellow (Yellow); Glucose Urine Negative (Negative); Ketones Urine Negative (Negative); Leukocyte Esterase Urine Negative (Negative); Nitrite Urine Negative (Negative); Protein Urine Negative (Negative); Specific Gravity Urine 1.015 (1.000-1.030); Urobilinogen Urine 0.2 (0.2-1.0)
[2023-05-14 16:39] LABS: Basophils Percent Auto 0.5 % (0.0-3.0); Eosinophils Percent Auto 1.2 % (0.0-7.0); Hematocrit 27.7 % (33.0-51.0); Hemoglobin* 8.9 gm/dL (12.0-16.0); Lymphocytes Percent Auto 19.9 % (20-44); Mean Corpuscular HGB Conc 32 gm/dL (32-36); Mean Corpuscular Hemoglobin 31 pg (26-34); Mean Corpuscular Volume 95 fL (80-100); Monocytes Percent Auto 6.7 % (0.0-11.0); Neutrophils Percent Auto 69.7 % (42.0-72.0); Platelet Count* 222 K/uL (140-440); Red Blood Count 2.92 m/uL (4.00-5.20); White Blood Count* 13.04 K/uL (4.50-11.00)
[2023-05-14 16:50] LABS: Slide Review Reflex No
[2023-05-14 16:52] LABS: Albumin* 3.9 g/dL (3.3-5.0); Chloride* 108 mmol/L (96-114); Potassium* 3.9 mmol/L (3.6-5.1); Sodium* 136 mmol/L (135-149)
[2023-05-14 16:55] LABS: Blood Urea Nitrogen* 60 mg/dL (7-30); Carbon Dioxide* 19 mmol/L (20-32); Creatinine* 2.6 mg/dL (0.5-1.5); Estimated Glomerular Filt Rate 21 ml/min; Glucose* 84 mg/dL (60-115); Phosphorus* 4.4 mg/dL (2.5-4.5); Total Protein Urine 14 mg/dL
[2023-05-14 16:56] LABS: Calcium* 9.1 mg/dL (8.4-10.6); Creatinine Urine 61.3 mg/dL; Magnesium* 1.6 mg/dL (1.5-2.6)
[2023-05-14 17:04] LABS: Squamous Epithelial Cell Urine Many (None-Few); WBC Urine 0-2 (0-5)
[2023-05-14 17:07] LABS: PTH Intact* 213 pg/mL (15-65)
[2023-05-17 04:13] LABS: Tacrolimus by HPLC-MS/MS 3.8 ng/mL
== END 2023-05-14 14:49 | disposition home or self-care (01) ==
LOC: NPINS 14:48
PROVIDERS: PCP Physician Assistant Medical; Visit Provider Internal Medicine Nephrology
DX: D63.1 Anemia in chronic kidney disease (principal); N19 Unspecified kidney failure; N25.81 Secondary hyperparathyroidism of renal origin; Z94.0 Kidney transplant status
CPT/HCPCS: 80069; 80197; 81001; 82570; 83735; 83970; 84156; 85025

== ENCOUNTER 2023-07-13 13:30 | Outpatient (REF) | payer OTHER, SELFPAY ==
[2023-07-13 14:45] LABS: Basophils Percent Auto 0.4 % (0.0-3.0); Eosinophils Percent Auto 1.2 % (0.0-7.0); Hematocrit 30.8 % (33.0-51.0); Hemoglobin* 9.9 gm/dL (12.0-16.0); Immature Granulocytes Pct Auto 0.7 %; Lymphocytes Percent Auto 15.9 % (20-44); Mean Corpuscular HGB Conc 32 gm/dL (32-36); Mean Corpuscular Hemoglobin 30 pg (26-34); Mean Corpuscular Volume 94 fL (80-100); Monocytes Percent Auto 7.5 % (0.0-11.0); Neutrophils Percent Auto 74.3 % (42.0-72.0); Platelet Count* 238 K/uL (140-440); RDW Coefficient of Variation % 13.3 % (11.5-15.5); Red Blood Count 3.27 m/uL (4.00-5.20); White Blood Count* 13.69 K/uL (4.50-11.00)
[2023-07-13 14:48] LABS: Chloride* 107 mmol/L (96-114); Slide Review Reflex No
[2023-07-13 14:49] LABS: Potassium* 3.8 mmol/L (3.6-5.1); Sodium* 140 mmol/L (135-149)
[2023-07-13 14:51] LABS: Blood Urea Nitrogen* 43 mg/dL (7-30); Carbon Dioxide* 21 mmol/L (20-32); Creatinine* 2.4 mg/dL (0.5-1.5); Estimated Glomerular Filt Rate 23 ml/min
[2023-07-13 14:52] LABS: Glucose* 87 mg/dL (60-115); Magnesium* 1.6 mg/dL (1.5-2.6); Phosphorus* 4.2 mg/dL (2.5-4.5)
[2023-07-13 15:22] LABS: Total Protein Urine 22 mg/dL
[2023-07-13 15:23] LABS: Creatinine Urine 67.9 mg/dL
[2023-07-14 23:32] LABS: Tacrolimus by HPLC-MS/MS 4.2 ng/mL
== END 2023-07-13 13:31 | disposition home or self-care (01) ==
LOC: NPINS 13:30
PROVIDERS: PCP Physician Assistant Medical; Visit Provider Internal Medicine Nephrology
DX: Z94.0 Kidney transplant status (principal); D84.9 Immunodeficiency, unspecified; I12.9 Hypertensive chronic kidney disease with stage 1 through stage 4 chronic kidney disease, or unspecified chronic kidney disease; N18.4 Chronic kidney disease, stage 4 (severe); Z99.2 Dependence on renal dialysis; G35 Multiple sclerosis; M32.9 Systemic lupus erythematosus, unspecified; D63.1 Anemia in chronic kidney disease; M32.14 Glomerular disease in systemic lupus erythematosus; D50.9 Iron deficiency anemia, unspecified; Z79.899 Other long term (current) drug therapy
CPT/HCPCS: 80069; 80197; 82310; 82570; 83735; 83970; 84156; 85025

== ENCOUNTER 2024-03-11 16:50 | Outpatient (CLI) | payer OTHER, BC, SELFPAY ==
--- OUTSIDE RECORDS SUMMARY | 2024-03-12 05:52 | XMS_ITS | Encounter Summary ---
Author Name Unknown Organization [facility] Address [address] [place] [id number] Care Team Providers Care Counseling Department Chair Name Role Phone [facility] Primary Care Provider Encounter Details Date Type Department Care Team (Late st Contact Info) Description 02/26/2021 Documentation Only INTERFACED REPORT Unknown, Provider Social History Tobacco Use Types Packs/Day Years Used Date Smoking Tobacco: Never Assessed Sex and Gender Information Value Date Recorded Sex Assigned at Female 02/03/2021 1:04 PM GYM INSTRUCTOR Gender Identity Female 02/03/2021 1:04 PM GYM INSTRUCTOR Sexual Orientation Not on file documented as of this encounter Plan of Treatment Not on file documented as of this encounter Visit Diagnoses Not on filedocumented in this encounter Care Teams Counseling Department Chair Relationship Specialty Start Date End Date [facility] [address] [place] [id number] PCP - General 03/01/20 documented as of this encounter
--- OUTSIDE RECORDS SUMMARY | 2024-03-12 05:52 | XMS_ITS | Clinical Summary ---
Author Name Unknown Organization [facility] Address [address] [place] [address] Phone Care Team Providers Care Hairmasters Manager Name Role Phone Machelle Lord PA-C Primary Care Provider [phone] Allergies Active Allergy Reactions Criticality Noted Date Comments Chlorpromazine 03/14/2011 Other reaction(s): Seizure Codeine Other (see comments) 11/14/2021 Fentanyl Other (see comments) 10/07/2021 Other reaction(s): severe nausea Other reaction(s): severe nausea Grapefruit Extract 08/03/2021 Other reaction(s): med interaction Hydromorphone 08/03/2021 Other reaction(s): vomiting and nausea Iron Dextran 06/08/2022 Morphine Other (see comments) 07/11/2011 Severe nausea/vomiting. Other Anaphylaxis High 10/07/2021 Sulfa Antibiotics Anaphylaxis High 03/14/2011 Rash. Sulfamethoxazole-Trimet hoprim Other (see comments) 11/14/2021 Iron Sucrose Swelling 04/18/2022 Medications Medication Sig Dispensed Refills Start Date End Date Status mycophenolate (CELLCEPT) 250 MG capsule Take 1 capsule by mouth 2 (two) times a day 0 08/14/2019 Active atorvastatin (LIPITOR) 10 MG tablet Take 1 tablet by mouth daily 0 07/21/2016 Active cholecalciferol (VITAMIN D-3) 25 MCG (1000 UT) capsule Take 1 tablet by mouth daily 0 11/17/2016 Active albuterol HFA (PROVENTIL HFA;VENTOLIN HFA) 108 (90 Base) MCG/ACT inhaler Inhale 2 puffs every 4 (four) hours if needed 0 12/30/2019 Active aspirin 81 MG chewable tablet Chew 1 tablet daily 0 07/01/2012 Active estradiol (ESTRACE) 1 MG tablet Take 1 mg by mouth 1 (one) time each day 0 01/25/2022 Active Acetaminophen 500 MG capsule Take 1,000 mg by mouth every 6 (six) hours if needed 0 11/07/2021 Active colchicine 0.6 MG tablet Take 0.6 mg by mouth 2 (two) times a day if needed 0 07/21/2017 Active PROGESTERONE MICRONIZED PO Take 200 mg by mouth at bed time 0 05/23/2022 Active predniSONE 5 MG tablet Take 5 mg by mouth 1 (one) time each day 0 05/23/2022 Active carvedilol (COREG) 6.25 MG tablet TAKE 1 TABLET (6.25 MG TOTAL) BY MOUTH IN THE MORNING AND 1 TABLET (6.25 MG TOTAL) IN THE EVENING. TAKE WITH MEALS. 180 tablet 2 01/08/2023 Active amLODIPine (NORVASC) 2.5 MG tablet TAKE 1 TABLET BY MOUTH 1 TIME EACH DAY. 90 tablet 2 01/08/2023 Active darbepoetin lenard (Aranesp, Albumin Free,) 40 MCG/0.4ML solution prefilled syringe Inject 60 mcg under the skin 0 Active prednisoLONE 5 MG tablet 1 (one) time each day 0 Active calcitriol (ROCALTROL) 0.25 MCG capsule TAKE 1 CAPSULE (0.25 MCG TOTAL) BY MOUTH 1 (ONE) TIME EACH DAY 90 capsule 3 03/22/2023 03/16/2024 Active tacrolimus (PROGRAF) 1 MG capsuleIndications: History of renal transplant Take 1 capsule (1 mg total) by mouth in the morning and 1 capsule (1 mg total) in the evening. 180 capsule 3 03/29/2023 03/28/2024 Active torsemide (DEMADEX) 20 MG tablet Take 30 mg by mouth twice a day. 270 tablet 3 06/29/2023 Active lisinopril 20 MG tablet Take 1 tablet (20 mg total) by mouth in the morning and 1 tablet (20 mg total) in the evening. 180 tablet 1 08/20/2023 Active sodium bicarbonate 650 MG tablet Take 3 tablets (1,950 mg total) by mouth in the morning and 3 tablets (1,950 mg total) in the evening. 540 tablet 2 03/07/2023 03/06/2024 Active Problems Problem Noted Date Diagnosed Date Chronic kidney disease stage 3 09/22/2017 Systemic lupus erythematosus 09/22/2017 Overview: dx'd 1998 Immunodeficiency 04/17/2016 Hyperlipidemia 07/10/2013 Hypertensive disorder 01/09/2013 History of renal transplant 08/03/2011 Overview: x2 x2 Anemia secondary to renal failure 03/13/2011 Disorder of transplanted kidney 03/13/2011 Encounters Date Type Department Care Team Description 02/17/2024 Refill [facility] [address] [place] [phone] Zuhair Mo MD 01/28/2024 Refill [facility] [address] [place] [phone] Zuhair oM MD 01/16/2024 Refill [facility] [address] [place] [phone] Zuhair Mo MD from Last 3 Months Immunizations Name Administration Dates Next Due Influenza, MDCK, PF, Quadrivalent 09/16/2021 Influenza, Quadrivalent, Pre servative Free 11/16/2020,11/16/2020,11/24/2019,11/15,11/15/2018,09/05/2017,09/19/2010 Pneumococcal Conjugate 13-Valent 12/19/2017 Pneumococcal Polysaccharide 12/19/2017 Family History Medical History Relation Comments No Known Problems Brother Cancer Father Hypertension Father No Known Problems Father's Brother No Known Problems Father's Sister Hypertension Maternal Grandfather Cancer Maternal Grandmother Stroke Maternal Grandmother Hypertension Mother Cancer Mother's Brother Cancer Mother's Sister Stroke Mother's Sister No Known Problems Paternal Grandfather No Known Problems Paternal Grandmother No Known Problems Sister Relation Status Comments Brother Alive Father Father's Brother Alive Father's Sister Alive Maternal Grandfather Maternal Grandmother Mother Alive Mother's Brother Mother's Sister Paternal Grandfather Paternal Grandmother Sister Alive Social History Tobacco Use Types Packs/Day Years Used Date Smoking Tobacco: Never Smokeless Tobacco: Never Tobacco Cessation:Counseling Given: Not Answered Alcohol Use Standard Drinks/Week Comments Never 0 (1 standard drink = 0.6 oz pur e alcohol) AUDIT-C Answer Date Recorded Q1: How often do you have a drink containing alc ohol? Never 02/04/2020 Average Number of Drinks Not on file 020 Frequency of Binge Drinking Not on file 01/24 Sex and Gender Information Value Date Recorded Sex Assigned at Not on file Gender Identity Not on file Sexual Orientation Not on file Last Filed Vital Signs Vital Sign Reading Time Taken Comments Blood Pressure 128/78 03/22/2023 9:55 AM CDT Pulse 80 03/22/2023 9:55 AM CDT Temperature - - Respiratory Rate - - Oxygen Saturation - - Inhaled Oxygen Concentration - - Weight 70.3 kg (155 lb) 03/22/2023 9:55 AM CDT Height 160 cm (5' 3) 03/22/2023 9:55 AM CDT Body Mass Index 27.46 03/22/2023 9:55 AM CDT Plan of Treatment Health Maintenance Due Date Last Done Comments Breast Cancer Screening 1965 Hepatitis B Vaccine (1 of 3 - 3-dose series) 1965 01/03/2021, 11/16/2020, 01/24/2011, Additional history exists Colonoscopy (Post-Transplant Patient) 02/11/2020 Mammogram (Post-Transplant Patient) 02/11/2020 Pelvic Exam (Post-Transplant Patient) 02/11/2020 Diabetes: Ophthalmology Exam 03/01/2022 Diabetes: Pedal Pulse Checked 03/01/2022 Diabetes: Sensory Foot Exam 03/01/2022 Diabetes: Visual Foot Exam 03/01/2022 Diabetes: Hemoglobin A1C 04/13/2024 024, 08/30/2023, 02/12/2023, Additional history exists Influenza Vaccine (Season Ended) 2024 09/27/2022, 09/16/2021, 11/16/2020, Additional history exists Pneumococcal Vaccine: Pediat rics (0 to 5 Years) and At-Risk Patients (6 to 64 Years) (4 of 4 - PPSV23 or PCV20) 2032 11/15/2018, 12/19/2017, 12/19/2017, Additional history exists Care Teams Hairmasters Manager Relationship Specialty Start Date End Date Machelle Lord PA-C [address] [place] [address] PCP - General Family Medicine 02/02/20
--- OUTSIDE RECORDS SUMMARY | 2024-03-12 05:52 | XMS_ITS | Clinical Summary ---
Author Name Unknown Organization [facility] Address [address], [place] [address] Care Team Providers Care Business Systems Advisor Name Role Phone Machelle Lord PA-C Primary Care Provider [phone] Source Comments You are receiving this document as you are listed as the primary care provider,follow-up provider, or the patient has been referred to you for consultation.This is in compliance with the Medicare andMedicaid EHR Incentive Program,which states Providers who transition their patient to another setting of careor provider of care or refers their patient to another provider of care shouldprovide summary care record for each transition of care or referral. [facility] Allergies Active Allergy Reactions Criticality Noted Date Comments Chlorpromazine 03/14/2011 Other reaction(s): Seizure Hydromorphone Nausea 07/11/2011 Other reaction(s): Other (see comments) Severe nausea/vomiting. Morphine And Related Nausea And Vomiting High 2016 Sulfa Antibiotics Anaphylaxis High 03/14/2011 Rash. Medications Medication Sig Dispensed Refills Start Date End Date Status cholecalciferol (AKA VITAMIN D3) 1000 UNITS tablet Take 1,000 Units by mouth daily (every 24 hours). 03/31/2016 Active colchicine (COLCRYS) 0.6 MG tablet Take 1 Tab by mouth two times a day. 14 Tab 07/21/2017 Active Calcium Citrate 250 MG Take 1 Tablet by mouth. 04/23/2015 Active multivitamin (THERAGRAN) tablet Take 1 Tablet by mouth. 06/14/2012 Active allopurinol (ZYLOPRIM) 100 MG tablet Take 1 Tablet by mouth. 11/16/2017 Active aspirin 81 MG chewable tablet Take 1 Tablet by mouth. 07/01/2012 Active atorvastatin (LIPITOR) 10 MG tablet Take 1 Tablet by mouth. 07/21/2016 Active cholecalciferol (VITAMIN D-[address]) 1000 units tablet Take 1 Tablet by mouth. 11/17/2016 Active furosemide (LASIX) 20 MG tablet Take 2 Tablets by mouth. 11/16/2017 Active lisinopril (ZESTRIL) 5 MG tablet Take 2-3 Tablets by mouth. 12/27/2017 Active mycophenolate (CELLCEPT) 250 MG capsule TAKE 1 CAPSULE BY MOUTH TWO TIMES A DAY 09/17/2018 Active predniSONE (DELTASONE) 5 MG tablet Take 1 Tablet by mouth. 11/16/2017 Active sodium bicarbonate 650 MG tablet Take 1,300 mg by mouth. 09/13/2018 Active tacrolimus (PROGRAF) 0.5 MG capsule Take 1 Capsule by mouth. 02/26/2017 Active tacrolimus (PROGRAF) 1 MG capsule TAKE 2 CAPSULES BY MOUTH EVERY 12 HOURS 09/17/2018 Active estradiol 2 MG tablet Take 2 mg by mouth daily. 3 08/15/2018 Active progesterone micronized (PROMETRIUM) 100 MG capsule 200 mg. 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 H/O kidney transplant 09/22/2017 Overview: Overview: x2 Immunodeficiency 04/17/2016 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 Social History Tobacco Use Types Packs/Day Years Used Date Smoking Tobacco: Never Smokeless Tobacco: Never Alcohol Use Standard Drinks/Week Comments No 0 (1 standard drink = 0.6 oz pur e alcohol) Sex and Gender Information Value Date Recorded Sex Assigned at Not on file Gender Identity Not on file Sexual Orientation Not on file Last Filed Vital Signs Vital Sign Reading Time Taken Comments Blood Pressure 118/72 08/14/2019 12:23 PM CDT Pulse - - Temperature 36.7 ??C (98 ??F) 08/14/2019 12:23 PM CDT Respiratory Rate - - Oxygen Saturation - - Inhaled Oxygen Concentration - - Weight 72.6 kg (160 lb) 07/29/2020 8:10 AM CDT Height 160 cm (5' 3) 07/29/2020 8:10 AM CDT Body Mass Index 28.34 07/29/2020 8:10 AM CDT Plan of Treatment Health Maintenance Due Date Last Done Comments Cervical Cancer Screening Due 1967 Colon Cancer Screening Plan Due 1967 Hep C Screening (Preventive Services) 1967 Mammogram 1967 HIV Screening (Preventive Services) 1983 Adult Preventive Visit 1985 HepB (1) 1986 Cholesterol 2012 COVID-19 Vaccine ( season) 2023 07/11/2021, 02/25/2021, 02/04/2021 Influenza (#1) 2023 11/16/2020, 10/28, 11/15/2018, Additional history exists DTaP/Tdap/Td (3 - Tdap) 07/11/2031 07/11/2021, 12/27 Pneumococcal (4 - PPSV23 or PCV20) 2032 11/15/2018, 12/19/2017, 01/02/2011 Hib Aged Out 06/09/2011 No longer eligi ble based on patient's age to complete this topic MCV4 Aged Out 06/09/2011 No longer eligi ble based on patient's age to complete this topic HepA Aged Out 07/11/2021, 11/16/2020 No lo nger eligible based on patient's age to complete this topic Zoster/Shingles Completed 07/11/2021, 01/03/2021 IPV (Polio) Aged Out No longer eligi ble based on patient's age to complete this topic Care Teams Business Systems Advisor Relationship Specialty Start Date End Date Machelle Lord PA-C [address] [place] [address] PCP - General Physician Ship Unloader 07/29/20
--- OUTSIDE RECORDS SUMMARY | 2024-03-12 05:52 | XMS_ITS | Encounter Summary ---
Author Name Unknown Organization [facility] Address [address] [facility] [address] [place] [address] Care Team Providers Care Partnership Manager Name Role Phone Machelle Lord PA-C Primary Care Provider [phone] Reason for Visit * Reason Comments Med Refill Encounter Details Date Type Department Care Team Description 01/28/2024 Refill [facility] [place] [address] [place] [phone] Zuhair Mo MD [address] [place] [address] Social History Tobacco Use Types Packs/Day Years Used Date Smoking Tobacco: Never Smokeless Tobacco: Never Alcohol Use Standard Drinks/Week Comments Never 0 [...] on file Sexual Orientation Not on file documented as of this encounter Miscellaneous Notes * Telephone Encounter - Mily Drummond RN - 01/28/2024 4:15 PM CST Following with [place] [facility] documented in this encounter Plan of Treatment Not on file documented as of this encounter Visit Diagnoses Not on filedocumented in this encounter Care Teams Partnership Manager Relationship Specialty Start Date End Date Machelle Lord PA-C [address] [place] [address] PCP - General Family Medicine 02/02/20 documented as of this encounter
--- OUTSIDE RECORDS SUMMARY | 2024-03-12 05:52 | XMS_ITS | Encounter Summary ---
Author Name Unknown Organization [facility] Address [address] [facility] [place] [facility] [address] [place] [address] Care Team Providers Care Electrical Maintenance Man Name Role Phone Machelle Lord PA-C Primary Care Provider [phone] Reason for Visit * Reason Comments Med Refill Encounter Details Date Type Department Care Team Description 02/17/2024 Refill [facility] [place] [address] [place] [phone] Zuhair Mo MD [address] [place] [address] Social History Tobacco Use Types [...] Telephone Encounter - Mily Drummond RN - 02/18/2024 10:34 AM CDT Following with [place] documented in this encounter Plan of Treatment Not on file documented as of this encounter Visit Diagnoses Not on filedocumented in this encounter Care Teams Electrical Maintenance Man Relationship Specialty Start Date End Date Machelle Lord PA-C [address], [place] [address] PCP - General Family Medicine 02/02/20 documented as of this encounter
--- OUTSIDE RECORDS SUMMARY | 2024-03-12 05:52 | XMS_ITS | Encounter Summary ---
Author Name Unknown Organization [facility] Address [address] [facility] [facility] [place] [address] [place] [address] Care Team Providers Care Auto Transmission Technician Name Role Phone Machelle Lord PA-C Primary Care Provider [phone] Reason for Visit * Reason Comments Med Refill Encounter Details Date Type Department Care Team Description 01/16/2024 Refill [facility] [place] [address] [place] [phone] Zuhair Mo MD [address] [place] [address] Social History Tobacco Use Types [...] Telephone Encounter - Mily Drummond RN - 01/18/2024 11:59 AM CST Follows with [place] [facility] documented in this encounter Plan of Treatment Not on file documented as of this encounter Visit Diagnoses Not on filedocumented in this encounter Care Teams Auto Transmission Technician Relationship Specialty Start Date End Date Machelle Lord PA-C [address] [place] [address] PCP - General Family Medicine 02/02/20 documented as of this encounter
--- OUTSIDE RECORDS SUMMARY | 2024-03-12 05:52 | XMS_ITS | Encounter Summary ---
Author Name Unknown Organization [facility] Address [address] [place] [address] Care Team Providers Care Materials Analyst Name Role Phone Machelle Lord PA-C Primary Care Provider [phone] Encounter Details Date Type Department Care Team Description 02/25/2020 Orders [place] [facility] [place] [address] [place] [address] Zuhair Mo MD [address] [place], [place] [address] Chronic kidney disease stage 3 (HCC); History of renal transplant Social History Tobacco Use Types Packs/Day Years [...] on file Sexual Orientation Not on file COVID-19 Exposure Response Date Recorded In the last month, have you been in contact with someone who was confirmed or suspected to have Coronavirus / COVID-19? No / Unsure 02/11/2020 2:04 PM EDT documented as of this encounter Plan of Treatment Not on file documented as of this encounter Visit Diagnoses Diagnosis Chronic kidney disease stage 3 (HCC) History of renal transplant documented in this encounter Care Teams Materials Analyst Relationship Specialty Start Date End Date Machelle Lord PA-C [address], [place] [address] PCP - General Family Medicine 02/02/20 documented as of this encounter
--- OUTSIDE RECORDS SUMMARY | 2024-03-12 05:52 | XMS_ITS | Clinical Summary ---
Author Name Unknown Organization [facility] Address [address] [place] [address] Care Team Providers Care Hollow Handle Bench Worker Name Role Phone Clinic, [facility] Primary Care Provider Immunizations Name Administration Dates Next Due COVID-19 MONOVALENT 12+ (Pfizer) 02/25/2021,01/24 Social History Tobacco Use Types Packs/Day Years Used Date Smoking Tobacco: Never Assessed Adolescent Education Answer Date Record ed Getting School Help Needed Not on file 08/18 Sex and Gender Information Value Date Recorded Sex Assigned at Female 02/03/2021 1:04 PM CLIENT DEVELOPMENT MANAGER Gender Identity Female 02/03/2021 1:04 PM CLIENT DEVELOPMENT MANAGER Sexual Orientation Not on file Plan of Treatment Health Maintenance Due Date Last Done Comments ADVANCE CARE PLANNING 1967 ANNUAL REVIEW OF HM ORDERS 1967 CT COLONOGRAPHY 1967 FIT 1967 FLEX SIG 1967 GLUCOSE 1967 MAMMO SCREENING 1967 YEARLY PREVENTIVE VISIT 1967 sDNA (Cologuard) 1967 COLONOSCOPY 1977 COLORECTAL CANCER SCREENING 1977 HIV SCREENING 1982 HEPATITIS C SCREENING 1985 PAP 1988 DTAP/TDAP/TD IMMUNIZATION (1 - Tdap) 1992 LIPID 2007 HEPATITIS B IMMUNIZATION (2 of 3 - 19+ 3-dose series) 02/21/2011 01/24/2011, 01/02/2011 ZOSTER IMMUNIZATION (2 of 2) 02/28/2021 01/03/2021 COVID-19 Vaccine (3 - 2022-24 season) 2023 02/25/2021, 02/04/2021 INFLUENZA VACCINE (#1) 2023 0, 11/24/2019, 11/15/2018, Additional history exists PHQ-2 (once per calendar year) 2023 MENINGITIS IMMUNIZATION Aged Out 06/09/20 11, 06/09/2011, 06/09/2011 No longer eligible based on patient's age to complete this topic Pneumococcal Vaccine: Pediatrics (0 to 5 Years) and At-Risk Patients (6 to 64 Years) Aged Out 11/15/2018, 12/19/2017, 01/02/2011 No longer eligible based on patient's age to complete this topic HPV IMMUNIZATION Aged Out No longer e ligible based on patient's age to complete this topic IPV IMMUNIZATION Aged Out No longer e ligible based on patient's age to complete this topic RSV MONOCLONAL ANTIBODY Aged Out No l onger eligible based on patient's age to complete this topic Care Teams Hollow Handle Bench Worker Relationship Specialty Start Date End Date [facility] [address] [place] [address] PCP - General 03/01/20
--- OUTSIDE RECORDS SUMMARY | 2024-03-12 05:52 | XMS_ITS | Referral Summary ---
Author Name Unknown Organization [facility] Address [address] [place] [address] Care Team Providers Care Dowel Pointer Name Role Phone Clinic, [facility] Primary Care Provider Immunizations Name Administration Dates Next Due COVID-19 MONOVALENT 12+ (Pfizer) 02/25/2021,01/24 Social History Tobacco Use Types Packs/Day Years Used Date Smoking Tobacco: Never Assessed Adolescent Education Answer Date Record ed Getting School Help Needed Not on file 08/18 Sex and Gender Information Value Date Recorded Sex Assigned at Female 02/03/2021 1:04 PM UTILIZATION REVIEW COORDINATOR Gender Identity Female 02/03/2021 1:04 PM UTILIZATION REVIEW COORDINATOR Sexual Orientation Not on file Plan of Treatment Not on file Care Teams Dowel Pointer Relationship Specialty Start Date End Date Clinic, [facility] [address] [place], [place] [phone] PCP - General 03/01/20
--- OUTSIDE RECORDS SUMMARY | 2024-03-12 05:52 | XMS_ITS | Continuity of Care Document ---
Author Name Unknown Organization [facility] Address [address] [address] [place] [address] Phone Care Team Providers Care Clipper Counters Name Role Phone Jose Lopez CRNAah Unavailable Unavailable Allergies, Adverse Reactions, Alerts Substance Reaction Status Criticality fentanyl severe nausea Active No Information codeine Nausea/Vomiting Active No Informati on morphine Nausea/Vomiting Active No Informati on Sulfa (Sulfonamide Antibiotics) Anaphylaxis Active No Information Medications Medication Instructions Dosage Effective Dates (start - stop) Status Comments ALLOPURINOL (unknown strength) take 1 tablet by ORAL route every day Not Available - Active ATORVASTATIN CALCIUM (unknown strength) take 1 tablet by oral route every day Not Available - Active TACROLIMUS (unknown strength) take 1 Tablet by oral route 2 times every day Not Available - Active CellCept 250 mg capsule take 6 capsule by oral route 2 times every day 1500 MG - Active amlodipine 2.5 mg tablet take 1 tablet by oral route every day 2.5 MG - Active Lasix 20 mg tablet take 1 tablet by oral route every day 20 MG - Active lisinopril 20 mg tablet take 1 tablet by oral route every day 20 MG - Active metoprolol succinate ER 25 mg tablet,extended release 24 hr take 1 Tablet by oral route every day 25 MG - Active prednisone 5 mg tablet take 3 Tablet by oral route every day 15 MG - Active Nulytely Lemon-Cheesh-Na 420 gram oral solution Take by mouth as directed on colonoscopy prep instructions - No Longer Active Gavilyte and Golytely are ok to be substituted also. procedure is 10/07/21 Patient is requesting lemon-akiachak flavor. Procedures Procedure Date Colonoscopy Flex; W/remov Les- Colonoscopy Flex; W/bx 1/mx Level Iv-surg Path Gross/micro Advance Directives Directive Yes / No Effective Date File Name No Information Encounters Encounter Description Practice Location Reason(s) For Visit Diagnoses Date Provider Providers Copied on Encounter [facility], [address] [address], [place], [id number], [place] tel:[phone] [facility] No Information 1 John JANE Machelle. [address], [facility] [place], [id number] , [place]. [phone] Referring Provider: Christine Kenny MD, [address], [place], [address] . tel:[phone] [facility], [address] [address], [place], [id number], [place] tel:[phone] [facility] [place] [facility] Symptoms or Concerns (chief complaint) Colorectal polypsDiverticulosi s of colon without diverticulitisHemor rhoids, externalEncounter for screening for malignant neoplasm of colonBenign neoplasm of ascending colonBenign neoplasm of descending colonBenign neoplasm of sigmoid colonBenign neoplasm of sigmoid colonBenign neoplasm of descending colonBenign neoplasm of ascending colon 1 Efraín King. [address], [facility], [id number] , [place]. tel:[phone] Referring Provider: Referral Self, USE FOR SELF REFERRALS. [facility], [address] [address], [place], [id number], [place] tel:[phone] [facility] No Information 1 Efraín King. [address], [place], [id number] , [place]. tel: [phone] [facility], [address] [address], [place], [id number], [place] tel:[phone] Ying [facility] No Information 1 Efraín King. [address] [facility], [place], [id number] , [place]. tel: [phone] Family History Family Member Type Diagnosis Age At Onset Son Problem (finding) asthma Father Problem (finding) prostate cancer Immunizations Vaccine Date Status Comments Influenza, injectable, Madin Aleksandra Canine Kidney, preservative free, quadrivalent administered Note: [facility] bi-direct ional interface ; Source: Other Registry SARS-COV-2 (COVID-19) vaccin e, mRNA, spike protein, LNP, preservative free, 30 mcg/0.3mL dose administered Note: [facility] bi-direct ional interface ; Source: Other Registry zoster vaccine recombinant administered N ote: [facility] bi-directional interface ; Source: Other Registry Havrix administered Note: [facility] bi-d irectional interface ; Source: Other Registry tetanus toxoid, reduced diphtheria toxoid, and acellular pertussis vaccine, adsorbed administered Note: [facility] b i-directional interface ; Source: Other Registry SARS-COV-2 (COVID-19) vaccin e, mRNA, spike protein, LNP, preservative free, 30 mcg/0.3mL dose administered Note: [facility] bi-direct ional interface ; Source: Other Registry SARS-COV-2 (COVID-19) vaccin e, mRNA, spike protein, LNP, preservative free, 30 mcg/0.3mL dose administered Note: [facility] bi-direct ional interface ; Source: Other Registry Hepatitis B vaccine (recombinant), CpG adjuvanted administered Note: [facility] bi-directional interface ; Source: Other Registry zoster vaccine recombinant administered N ote: [facility] bi-directional interface ; Source: Other Registry Hepatitis B vaccine (recombinant), CpG adjuvanted administered Note: [facility] bi-directional interface ; Source: Other Registry Havrix administered Note: [facility] bi-d irectional interface ; Source: Other Registry Afluria Qd administered Note: [facility] bi-directional interface ; Source: Other Registry Afluria Qd administered Note: [facility] bi-directional interface ; Source: Other Registry Pneumovax administered Note: [facility] bi-d irectional interface ; Source: Other Registry Prevnar 13 administered Note: [facility] bi-d irectional interface ; Source: Other Registry Afluria Qd administered Note: [facility] bi-directional interface ; Source: Other Registry meningococcal polysaccharide (groups A, C, Y and W-135) diphtheria toxoid conjugate vaccine (MCV4P) administered Note: [facility] bi-direct ional interface ; Source: Other Registry meningococcal polysaccharide vaccine (MPSV4) administered Note: [facility] bi-direct ional interface ; Source: Other Registry Haemophilus influenzae type b vaccine, PRP-T conjugate administered Note: [facility] bi-d irectional interface ; Source: Other Registry hepatitis B vaccine, unspeci fied formulation administered Note: [facility] bi-direct ional interface ; Source: Other Registry hepatitis B vaccine, unspeci fied formulation administered Note: [facility] bi-direct ional interface ; Source: Other Registry Pneumovax 23 administered Note: [facility] bi-d irectional interface ; Source: Other Registry tetanus toxoid, reduced diphtheria toxoid, and acellular pertussis vaccine, adsorbed administered Note: [facility] b i-directional interface ; Source: Other Registry influenza virus vaccine, unspecified formulation administered Note: [facility] bi-di rectional interface ; Source: Other Registry Payers Payer name Insurance type Covered libertarian ID Authoriza tion(s) [facility] CI [id number] Social History Type Description Quantity Date Captured Comments Sex Female Smoking Status No Information Chief Complaint And Reason For Visit No Information Reason For Referral Reason For Referral No Information History Of Present Illness Encounter Date Complaint History Of Prese nt Illness GI Symptoms or Concerns Functional Status Date Functional Assessmen t No Information Instructions Date Instruction Additional Infor mation Diverticulosis/Diverticulitis Re lated to Colorectal polyps Colon Polyps Related to Color ectal polyps Colon Cancer Prevention Related to Colorectal polyps High Fiber Diet Related to Color ectal polyps Assessments Type Assessment Date No Information Patient Care Teams Name Effective Dates (start - stop) Status Members No Information
--- OUTSIDE RECORDS SUMMARY | 2024-03-12 05:52 | XMS_ITS | Encounter Summary ---
Author Name Unknown Organization [facility] Address [address] [place] [address] Care Team Providers Care Signal Helper Name Role Phone Machelle Lord PA-C Primary Care Provider [phone] Encounter Details Date Type Department Care Team Description 05/16/2021 Orders Only [facility] [address] [place] [address] Zuhair Mo MD [address] [place] [address] Disorder of transplanted kidney; Anemia secondary to renal failure; History of renal transplant; Hypertensive disorder; Systemic lupus erythematosus, not otherwise specified (HCC) Social History Tobacco Use Types Packs/Day Years [...] on file documented as of this encounter Procedures Procedure Name Priority Date/Time Associated Diagnosis Comments TACROLIMUS LEVEL Routine 05/12/2021 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 History of renal transplant Hypertensive disorder Systemic lupus erythematosus, not otherwise specified (HCC) PROTEIN / CREATININE RATIO, URINE Routine 05/12/2021 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 History of renal transplant Hypertensive disorder Systemic lupus erythematosus, not otherwise specified (HCC) HEMOGLOBIN Routine 05/12/2021 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 History of renal transplant Hypertensive disorder Systemic lupus erythematosus, not otherwise specified (HCC) PTH, INTACT Routine 05/12/2021 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 History of renal transplant Hypertensive disorder Systemic lupus erythematosus, not otherwise specified (HCC) MAGNESIUM Routine 05/12/2021 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 History of renal transplant Hypertensive disorder Systemic lupus erythematosus, not otherwise specified (HCC) RENAL FUNCTION PANEL Routine 05/12/2021 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 History of renal transplant Hypertensive disorder Systemic lupus erythematosus, not otherwise specified (HCC) documented in this encounter Results * Tacrolimus level (05/12/2021) Pathologist [facility] [place] Tacrolimus Lvl 6.3 [facility] Blood (Blood, Venous) 05/12/2021 Zuhair Mo MD LAB BLOOD ORDERABLES Performing Organization Address [facility]/ZIP Co de Phone Number [facility] * Magnesium (05/12/2021) Magnesium 1.7 [facility] Blood (Blood, Venous) 05/12/2021 Zuhair Mo MD LAB BLOOD ORDERABLES [facility] * (ABNORMAL) Protein, Total, Random Urine w/Creatinine (Protein/Creat Ratio) (05/12/2021) Creatinine, Urine Random 96 mg/dL [facility] Urine Protein/Creati nine Ratio 0.34(H) [facility] Protein Urine Random 33 mg/dL [facility] Urine (Urine, Clean Catch) 05/12/2021 Zuhair Mo MD LAB URINE ORDERABLES Performing Organization Address [facility] de Phone Number [facility] * (ABNORMAL) PTH, Intact (05/12/2021) Parathyroid Hormone, Intact 159(H) pg/mL [facility] Blood (Blood, Venous) 05/12/2021 Zuhair Mo MD LAB BLOOD ORDERABLES Performing Organization Address [facility] de Phone Number [facility] * (ABNORMAL) Hemoglobin (05/12/2021) Pathologist [facility] [place] Hemoglobin 10.6(L) 12.0 - 16.0 [facility] Blood (Blood, Venous) 05/12/2021 Zuhair Mo MD LAB BLOOD ORDERABLES Performing Organization Address [facility] de Phone Number [facility] * (ABNORMAL) Renal Function Panel (05/12/2021) Glucose 91 mg/dL [facility] BUN 44(H) mg/dL [facility] Creatinine 1.7(H) mg/dL [facility] Sodium 137 mEq/L [facility] Potassium 4.2 mEq/L [facility] Chloride 105 [facility] Carbon Dioxide 21 mmol/L [facility] Calcium 8.8 mg/dL [facility] eGFR Non-Afr Gambian 29(L) [facility] Blood (Blood, Venous) 05/12/2021 Narrative [facility] - 06/20/2021 10:32 AM CDT BMP only Zuhair Mo MD LAB BLOOD ORDERABLES Performing Organization Address [facility] de Phone Number [facility] documented in this encounter Visit Diagnoses Diagnosis 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
--- OUTSIDE RECORDS SUMMARY | 2024-03-12 05:53 | XMS_ITS | Clinical Summary ---
Author Name Unknown Organization [facility] Address [address] [place] [address] Care Team Providers Care Completions Engineer Name Role Phone Elsewhere, Pcp Primary Care Provider Unavailabl e Source Comments Patient records contain information from all sites at [facility]. For routine questions regarding patient records, call [phone] during business hours, M-F 8:00 AM - 5:00 PM Central Time. Record requests for emergency care only can be directed to [phone] at any time.[facility] Allergies Active Allergy Reactions Criticality Noted Date Comments Fentanyl GI intolerance 10/07/2021 Other reaction(s): severe nausea Grapefruit Extract Other (see comments) 021 Other reaction(s): med interaction Hydromorphone GI intolerance 07/11/2011 Severe nausea/vomiting. Iron Sucrose Anaphylaxis,Swelling 04/18/2022 Morphine GI intolerance 07/11/2011 Severe nausea/vomiting. Sulfa (Sulfonamide Antibiotics) Anaphylaxis 03/14/2011 Rash. Chlorpromazine Seizure 03/14/2011 Tramadol GI intolerance 08/30/2023 Trimethoprim Itching 10/01/2023 Medications Medication Sig Dispensed Refills Start Date End Date Status atorvastatin (LIPITOR) 10 mg tablet Take 1 tablet by mouth daily. 6 Active cholecalciferol (VITAMIN D3) 1,000 Unit tablet Take 1 tablet by mouth daily. 6 Active progesterone (PROMETRIUM) 200 mg capsule Take 200 mg by mouth every evening. 1 Active estradioL (ESTRACE) 1 mg tablet Take 1 tablet by mouth every evening. 8 Active multivitamin with folic acid (One Daily Multivitamin) 400 mcg tablet Take 1 tablet by mouth daily. 100 tablet 2 3 08/30/20 24 Active lancets Use to test one blood glucose one time each day. 100 each 3 3 08/31/20 24 Active alcohol swabs pads, medicated Use as needed for diabetes control 1500 each 3 3 Active blood sugar diagnostic strips Use to test blood glucose one time each day. 100 test 2 3 08/31/20 24 Active acetaminophen (TYLENOL) 500 mg tablet Take 1,000 mg by mouth every 6 (six) hours as needed for pain. Active predniSONE (DELTASONE) 5 mg tablet Take 1 tablet (5 mg total) by mouth daily. 90 tablet 3 3 09/30/20 24 Active mycophenolate (CELLCEPT) 250 mg capsule Take 2 capsules (500 mg total) by mouth 2 (two) times a day. Take medication on an empty stomach. Do not break, cut, or open capsules 360 capsule 3 4 Active tacrolimus (PROGRAF) 0.5 mg capsule Take 1 capsule (0.5 mg total) by mouth every morning. Take with 1 mg capsule for total of 1.5mg AM and 1mg PM 90 capsule 3 4 Active tacrolimus (PROGRAF) 1 mg capsuleIndication s:Transplant Renal (HCC),Immunodefic iency Due To Drugs (HCC),High 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 Take 1 capsule (1 mg total) by mouth 2 (two) times a day. Take with 0.5 mg capsule for total of 1.5mg AM and 1mg PM 180 capsule 3 4 01/29/20 25 Active carvediloL (COREG) 12.5 mg tabletIndications :Transplant Renal (HCC),Hypertensio n Essential Primary,Diabetes Mellitus 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) Take 1 tablet (12.5 mg total) by mouth 2 (two) times a day with meals for 5 days. 10 tablet 4 Active Additional Information Patient taking differently: 25 mgoral 2 times daily with meals, Reported on 02/21/2024 calcitRIOL (ROCALTROL) 0.25 mcg capsuleIndication s:Transplant Renal (HCC),Hyperparath yroidism Renal Secondary (HCC) Take 1 capsule (0.25 mcg total) by mouth daily. 90 capsule 4 06/08/20 24 Active multivitamin tablet Take 1 tablet by mouth daily. 2 08/31/20 23 Discontinued valGANciclovir (VALCYTE) 450 mg tablet Take 2 tablets (900 mg total) by mouth daily. Dose may change based on kidney function. End date 02/27/2024 60 tablet 5 3 02/27/20 24 calcitRIOL (ROCALTROL) 0.25 mcg capsule Take 1 capsule (0.25 mcg total) by mouth daily. 30 capsule 3 03/10/20 24 Discontinued(Re order) pentamidine (NEBUPENT) 50 mg/mL inhalation solution Inhale 300 mg as directed. First dose 09/01/23 02/21/20 24 Discontinued(Er ror) magnesium chloride (SLOW-MAG) 71.[address] tablet Take 2 tablets (143 mg total) by mouth 3 (three) times a day. Do not crush or chew. 540 tablet 3 4 02/21/20 24 Discontinued(Re order) magnesium chloride (SLOW-MAG) 71.[address] tablet Take 2 tablets (143 mg total) by mouth 3 (three) times a day. Do not crush or chew. 540 tablet 3 4 02/21/20 24 Discontinued Active Problems Problem Noted Date Diagnosed Date Hypophosphatemia 09/03/2023 Hypomagnesemia 08/31/2023 Hypocalcemia 08/31/2023 Personal History Of Infectio us And Parasitic Disease (COVID-19) 08/31/2023 Gout 08/31/2023 Menopausal And Female Climacteric States 023 Pneumonia 08/31/2023 Abnormal Results Of Function Studies Of Other Organs And Systems 08/31/2023 Calculus Of Gallbladder With Acute Cholecystitis Without Obstruction 08/31/2023 Deficiency Vitamin D 08/31/2023 Hyperparathyroidism Renal Secondary 08/31/2023 Chronic Kidney Disease Stage 5 Glomerular Filtration Rate Less Than 15 08/30/2023 Transplant Renal 08/30/2023 Chronic Kidney Disease Stage 4 Glomerular Filtration Rate 15-29 08/17/2023 Fusion Ankle Status Post 12/21/2021 Pain Leg Right 11/16/2021 Edema Peripheral 11/07/2021 Diabetes Mellitus Drug Or Ch emical Induced With Hyperglycemia 11/02/2021 Pain Ankle Right 09/12/2021 Secondary Osteoarthritis Ankle Right 09/12/2021 Arthritis Ankle 09/12/2021 Overview: Added automatically from request for surgery [id number] 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 Initial 04/09/2018 Presence Of Left Artificial Hip Joint 04/09/2018 Overview: 1988, revision head and liner 2005 per patient ([place], [place]) Presence Of Artificial Knee Joint Bilateral 03/26 Overview: R TKA 1992, revision 2004 ([place], [place]); L TKA 2004 ([place]) Myelitis 12/19/2017 Demyelinating Disease Central Nervous System Lupus Systemic Erythematosus 09/22/2017 Overview: dx'd 1998 dx'd 1998 Hemiplegic Migraine Not Intr actable Without Status Migrainosus 09/22/2017 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 4 7:20 AM CDT - 4 11:59 PM CDT Hospital Encounter Department of Laboratory Medicine in [address] [address] Juan Grier, STUART C.N.P., M.S.N. Transplant Renal (HCC); High 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; Immunodeficiency Due To Drugs (HCC); Mismatch Cytomegalovirus Discharge Disposition: Home or Self Care 4 Refill [facility] Transplantation [facility] Clinical Regeneration in [place], [place] [address] [place] [address] Ayanna James R.N., C.C.T.C. Med Refill 4 6:59 PM CDT - 4 11:59 PM CDT [facility] [place] [place] [address] [place] [address] Wang Bass M.D. Demyelinating Disease Central Nervous System (HCC) Discharge Disposition: Home or Self Care 4 11:03 AM CDT - 4 5:25 PM CDT Emergency [facility] [place] [facility] [address] [place] [phone] Rafita Patterson, P.A.-Nely Heard, P.A.-C., M.S. Multiple Sclerosis (HCC) (Primary Dx); Paresthesia; Pain Chest Discharge Disposition: Home or Self Care 4 Refill [facility] Transplantation and Clinical Regeneration in [place], [place] [address] [place] [address] Sandra Chen R.N. Med Refill 4 Orders Only [facility] Transplantation and Clinical Regeneration in [place], [place] [address] [place] [address] Eli Infante R.N. Mismatch Cytomegalovirus (Primary Dx); High 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; Transplant Renal (HCC); Immunodeficiency Due To Drugs (HCC) 4 9:58 AM CDT - 4 11:59 PM CDT Hospital Encounter Division of Pulmonary Medicine in [place], [place] [address] [place] [address] Radha Julian M.D. Immunodeficiency Due To Drugs (HCC) (Primary Dx); Transplant Renal (HCC) Discharge Disposition: Home or Self Care 4 Clinical Communication Department of Radiology, [facility], in [place], [place] [address] [place] [address] Grant Mcallister M.D. Follow-up (Post procedure follow up phone call.) 4 1:30 PM CDT Telemedicine [facility] Transplantation [facility] Clinical Regeneration in [place], [place] [address] [place] [phone] Juan Grier APRN, C.N.P., M.S.N. Angelica Hutchins M.D. Immunodeficiency Due To Drugs (HCC) (Primary Dx); Transplant Renal (HCC); Mismatch Cytomegalovirus 4 9:58 AM CDT - 4 1:32 PM CDT Hospital Encounter Outpatient Surgery Unit in [place], [place] [address] [place] [phone] Juan Grier APRN, C.N.P., M.S.N. Transplant Renal (HCC) Discharge Disposition: Home or Self Care 4 8:30 AM CDT Office Visit [facility] Transplantation [facility] Clinical [facility] in [place], [place] [address] [place] [address] Juan Grier APRN, C.N.P., M.S.N. Ricci Collins M.D. Transplant Renal (HCC) (Primary Dx); Hypertension Essential Primary; Diabetes Mellitus 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); Immunodeficiency Due To Drugs (HCC); Lupus Systemic Erythematosus (HCC); Hypomagnesemia; Edema Peripheral 4 Clinical Communication [facility] Transplantation and Clinical Regeneration in [place], [place] [address] [place] [address] Sheryl Betancourt APRN C.N.PSravanthi, M.S.N. 4 Clinical Communication [facility] Transplantation and Clinical Regeneration in [place], [place] [address] [place] [address] Charu Alicea R.N. Tacrolimus Adjustment Protocol 4 11:00 AM MATRIX BATH ATTENDANT Telemedicine [facility] Transplantation [facility] Clinical Regeneration in [place], [place] [address] [place] [address] Kimmy Mike M.D. Gasperlin, Katelyn E, M.S., RDN, LD Transplant Renal (HCC); Immunodeficiency Due To Drugs (HCC); High 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 4 7:20 AM MATRIX BATH ATTENDANT - 4 11:59 PM MATRIX BATH ATTENDANT Hospital Encounter Department of Laboratory Medicine in [address] [phone] Juan Grier APRN, C.N.P., M.S.N. Transplant Renal (HCC); High 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; Immunodeficiency Due To Drugs (HCC); Diabetes Mellitus 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); Aftercare Transplant Renal (HCC) Discharge Disposition: Home or Self Care 4 Refill [facility] Transplantation and Clinical Regeneration in [place], [place] [address] [place] [address] Juan Grier APRN, C.N.P., M.S.N. Med Refill 4 Orders Only [facility] Transplantation and Clinical Regeneration in [place], [place] [address] [place] [address] Eli Infante RColleen Aftercare Transplant Renal (HCC) (Primary Dx); High 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; Transplant Renal (HCC); Immunodeficiency Due To Drugs (HCC) 4 Orders Only Division of Gastroenterology in [place], [place] [address] [place] [phone] Elmer Parikh M.D. Genetic Susceptibility To Disease 4 8:30 AM MATRIX BATH ATTENDANT - 4 11:59 PM MATRIX BATH ATTENDANT Hospital Encounter Division of Pulmonary Medicine in [place], [place] [address] [place] [phone] Radha Julian M.D. Immunodeficiency Due To Drugs (HCC) (Primary Dx); Transplant Renal (HCC) Discharge Disposition: Home or Self Care 4 Refill [facility] in [place], [place] [address] [place] [phone] Charu Alicea RSravanthiNSravanthi Med Refill 4 Documentation [facility] in [place], [place] [address] [place] [phone] Cristofer Castillo M.D. 4 Refill [facility] Transplantation and Clinical Regeneration in [place], [place] [address] [place] [phone] Charu Alicea, R.NSravanthi Med Refill 4 Orders Only [facility] Transplantation and Clinical Regeneration in [place], [place] [address] [place] [phone] Charu Alicea, R.NSravanthi Aftercare Transplant Renal (HCC) (Primary Dx); High 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; Immunodeficiency Due To Drugs (HCC) 4 Refill [facility] Transplantation [facility] Clinical Regeneration in [place], [place] [address] [place] [phone] Charu Alicea, R.N. Med Refill 4 9:47 AM MATRIX BATH ATTENDANT - 4 12:09 PM [facility] Emergency [facility] [address] [place] [phone] Aldo Collier APRN, C.N.P., D.N.P. Acute Cystitis Without Hematuria (Primary Dx); Transplant Renal (HCC); Immunodeficiency Due To Drugs (HCC) Discharge Disposition: Home or Self Care 4 Documentation [facility] Transplantation and Clinical Regeneration in [place], [place] [address] [place] [address] Jessie Decker M.D. 4 Documentation [facility] Transplantation and Clinical Regeneration in [place], [place] [address] [place] [address] Cristofer Castillo M.D. 4 Orders Only [facility] Transplantation and Clinical Regeneration in [place], [place] [address] [place] [address] Juan Grier APRN, C.N.PSravanthi, M.S.NSravanthi Illness Febrile (Primary Dx); Transplant Renal (HCC) 4 Clinical Communication [facility] Transplantation and Clinical Regeneration in [place], [place] [address] [place] [address] Cristofer Castillo M.D. 4 9:30 AM MATRIX BATH ATTENDANT Office Visit [facility] Transplantation [facility] Clinical Regeneration in [place], [place] [address] [place] [address] Kimmy Mike M.D. Riad, Samy M, M.D. Illness Febrile (Primary Dx); Transplant Renal (HCC); Immunodeficiency Due To Drugs (HCC); High 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 4 7:40 AM MATRIX BATH ATTENDANT Lab Department of Laboratory Medicine and Pathology, [facility], in [place], [place] [address] [place] [address] Kimmy Mike M.D. Transplant Renal (HCC); Immunodeficiency Due To Drugs (HCC); High 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 4 Refill [facility] Transplantation [facility] Clinical Regeneration in [place], [place] [address] [place] [address] Juan Grier APRN, C.NChris., M.S.N. Med Change Request 4 Refill [facility] Transplantation [facility] Clinical [facility]eneration in [place], [place] [address] [place] [address] Bipin Chen R.N., C.C.T.C. Med Refill 4 Clinical Communication [facility] Transplantation [facility] Clinical Regeneration in [place], [place] [address] [place] [address] Bipin Chen R.N., C.C.T.C. Mycophenolate AUC Monitoring 4 7:25 AM [facility] - 4 11:59 PM MATRIX BATH ATTENDANT Hospital Encounter Department of Laboratory Medicine in [address] [address] Angelica Hutchins M.D. Transplant Renal (HCC); High 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; Immunodeficiency (HCC) Discharge Disposition: Home or Self Care 4 7:24 AM [facility] Hospital Encounter Department of Laboratory Medicine in [address] [address] Angelica Hutchins M.D. Transplant Renal (HCC); High 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; Immunodeficiency (HCC) Discharge Disposition: Home or Self Care 4 7:20 AM [facility] - 4 7:23 AM [facility] Hospital Encounter Department of Laboratory Medicine in [address] [address] Juan Grier APRN, C.NChris., M.S.N. Transplant Renal (HCC); High 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; Immunodeficiency Due To Drugs (HCC); Immunodeficiency (HCC); Hypomagnesemia; Hypophosphatemia Discharge Disposition: Home or Self Care 4 Refill [facility] in [place], [place] [address] [place] [address] Bipin Chen R.N., C.C.T.C. Med Refill 4 Clinical Communication [facility] Transplantation and Clinical Regeneration in [place], [place] [address] [place] [address] Sheryl Betancourt APRN C.N.Hannah., M.S.N. 4 8:22 AM MATRIX BATH ATTENDANT - 4 11:59 PM MATRIX BATH ATTENDANT Hospital Encounter Division of Pulmonary Medicine in [place], [place] [address] [place] [phone] Radha Julian M.D. Immunodeficiency Due To Drugs (HCC) (Primary Dx); Transplant Renal (HCC) Discharge Disposition: Home or Self Care 4 8:00 AM MATRIX BATH ATTENDANT Office Visit Department of Dermatology in [place], [place] [address] [place] [address] Gabby Clark M.D. Nevus Dermal (Primary Dx); Keratosis Seborrheic Discharge Disposition: Home or Self Care 4 Orders Only [facility] Transplantation and Clinical Regeneration in [place], [place] [address] [place] [address] Bipin Chen R.N., C.C.T.C. Transplant Renal (HCC) (Primary Dx); High 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; Immunodeficiency (HCC) 4 Refill [facility] Transplantation and Clinical Regeneration in [place], [place] [address] [place] [address] Juan Grier APRN C.N.P., M.S.N. Med Refill 4 Refill [facility] Transplantation and Clinical Regeneration in [place], [place] [address] [place] [address] Charu Alicea, R.N. Med Refill 4 Clinical Communication [facility] Transplantation [facility] Clinical Regeneration in [place], [place] [address] [place] [address] Bipin Chen R.N., C.C.T.C. Phone Contact 4 7:20 AM MATRIX BATH ATTENDANT - 4 11:59 PM [facility] Hospital Encounter Department of Laboratory Medicine in [address] [phone] Juan Grier APRN C.N.P., M.S.N. Transplant Renal (HCC); High 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; Immunodeficiency Due To Drugs (HCC) Discharge Disposition: Home or Self Care 4 Orders Only [facility] Transplantation [facility] Clinical [facility] in [place], [place] [address] [place] [address] iBpin Chen R.N., C.C.T.C. Transplant Renal (HCC) (Primary Dx); High 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; Immunodeficiency (HCC); Hypomagnesemia; Hypophosphatemia 4 Orders Only [facility] Transplantation and Clinical Regeneration in [place], [place] [address] [place] [address] Bipin Chen R.N., C.C.T.C. Hypophosphatemia (Primary Dx); Transplant Renal (HCC); High 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; Immunodeficiency (HCC) from Last 3 Months Immunizations Name Administration Dates Next Due HepA Adult 07/11/2021,11/16/2020 HepB Adult 01/03/2021, 0,01/24/2011,2010 Hib, Unspecified 06/09/2011 MPSV4 06/09/2011 PCV13 12/19/2017 PPSV23(Discontinued) 11/15/2018,12/19/2017,01/02 RZV (SHINGRIX) 07/11/2021,01/03/2021 SARS-COV-2 (COVID-19) - PFIZ ER (Discontinued)(12 years or older) 12/22/2021,07/11/2021,02/25/2021,2020 Tdap 07/11/2021,12/27/2010 influenza vaccine quad (FLUZONE/FLUARIX) (6 months and older)(PF) 09/27/2022,09/16/2021,11/16/2020,2018,11/15/2018,09/05/2017,09/19/2010 Family History Medical History Relation Name Comments Allergies Brother Jaw surgery Brother Hypertension Father Father Prostate cancer Father Father Stroke Father Father Hypertension Mother Allergies Sister Jaw surgery Sister Asthma Son Hypertension Son Relation Name Status Comments Brother Alive Father Father Mother Alive Sister Alive Son Alive Social History Tobacco Use Types Packs/Day Years Used Date Smoking Tobacco: Never Smokeless Tobacco: Never Tobacco Cessation:Counseling Given: Not Answered Alcohol Use Standard Drinks/Week Comments No 0 (1 standard drink = 0.6 oz pur e alcohol) Humiliation, Afraid, Rape, and Kick questionnair e Answer Date Recorded Within the last year, have y ou been afraid of your partner or ex-partner? No 02/13/2023 Within the last year, have y ou been humiliated or emotionally abused in other ways by your partner or ex-partner? No Within the last year, have y ou been kicked, hit, slapped, or otherwise physically hurt by your partner or ex-partner? No 02/13/2023 Within the last year, have y ou been raped or forced to have any kind of sexual activity by your partner or ex-partner? No 02/13/2023 Social Connection and Isolation Panel [NHANES] A nswer Date Recorded In a typical week, how many times do you talk on the phone with family, friends, or neighbors? Once a week 02/14/20 How often do you get togethe r with friends or relatives? Once a week 02/13/2023 How often do you attend chur ch or sabianism services? 1 to 4 times per year 02/13/2023 Do you belong to any clubs o r organizations such as gnosticist groups, unions, fraternal or athletic groups, or school groups? No 02/13/2023 How often do you attend meet ings of the clubs or organizations you belong to? 1 to 4 times per year 02/13/2023 Are you , , di vorced, , never , or living with a partner? 02/13/2023 AUDIT-C Answer Date Recorded Q1: How often do you have a drink containing alc ohol? Never 02/13/2023 Q2: How many drinks containi ng alcohol do you have on a typical day when you are drinking? 1 or 2 02/13/2023 Q3: How often do you have six or more drinks on one occasion? Never 02/13/2023 Overall Financial Resource Strain (CARDIA) Answe r Date Recorded How hard is it for you to pa y for the very basics like food, housing, medical care, and heating? Not hard at all 02/13/2023 PHQ-2 Answer Date Recorded PHQ-2 Score 0 09/10/2023 [facility] - Occupational Stress Questionnaire Answer Date Recorded Do you feel stress - tense, restless, nervous, or anxious, or unable to sleep at night because your mind is troubled all the time - these days? Only a little 02/13/2023 Exercise Vital Sign Answer Date Recorde d On average, how many days pe r week do you engage in moderate to strenuous exercise (like a brisk walk)? 2 days 02/13/2023 On average, how many minutes do you engage in exercise at this level? 40 min 02/13/2023 Hunger Vital Sign Answer Date Recorded Within the past 12 months, y ou worried that your food would run out before you got the money to buy more. Never true 02/14/20 23 Within the past 12 months, t he food you bought just didn't last and you didn't have money to get more. Never true 02/13/2023 PRAPARE - Transportation Answer Date Re corded In the past 12 months, has l ack of transportation kept you from medical appointments or from getting medications? No 01/25 In the past 12 months, has l ack of transportation kept you from meetings, work, or from getting things needed for daily living? No 02/13/2023 Housing Stability Vital Sign Answer Vitkor e Recorded In the last 12 months, was t here a time when you were not able to pay the mortgage or rent on time? No 02/13/2023 In the last 12 months, how many places have you lived? 1 02/13/2023 In the last 12 months, was t here a time when you did not have a steady place to sleep or slept in a skilled nursing (including now)? No 02/13/2023 Depression Answer Date Recor ded PHQ-9 Total Score (max 27) 1 11/23 Nutrition Answer Date Recorded Nutrition: EVOO Fat Source Yes 02/13 On average, how many serving s of fruits and vegetables do you eat per day (serving size is equal to 1 cup or approximately the size of a tennis ball)? 0-1 02/13/2023 Dental Answer Date Recorded Dental: Regular Dentist Yes 01/28/20 Employment Answer Date Recorded Employment status Employed and actively working without restrictions 02/13/2023 Education Answer Date Recorded What is the highest level of school you have completed or the highest degree you have received? Bachelor's degree (e.g., BA, AB, BS) 11/23/2019 Sex and Gender Information Value Date Recorded Sex Assigned at Female 11/13/2018 9:36 AM MATRIX BATH ATTENDANT Gender Identity Female 11/13/2018 9:36 AM MATRIX BATH ATTENDANT Sexual Orientation Straight 11/13/2018 9: 36 AM MATRIX BATH ATTENDANT Last Filed Vital Signs Vital Sign Reading Time Taken Comments Blood Pressure 147/83 02/21/2024 5:00 PM CDT Pulse 78 02/21/2024 5:00 PM CDT Temperature 36.4 ??C (97.5 ??F) 02/21/2024 1 1:08 AM CDT Respiratory Rate 24 02/21/2024 5:00 PM CDT Oxygen Saturation 96% 02/21/2024 5:00 PM CDT Inhaled Oxygen Concentration - - Weight 71.2 kg (156 lb 15.5 oz) 024 11:06 AM CDT Height 160 cm (5' 3) 03/04/2024 7:18 PM CDT Body Mass Index 28.7 02/08/2024 8:34 AM CDT Plan of Treatment Upcoming Encounters Date Type Department Care Team (Latest Contact Info) Description 03/17/2024 7:20 AM CDT Appointment Department of Laboratory Medicine in [address] [phone] Angelica Hutchins M.D. [address] [place] [phone] 03/24/2024 7:10 AM CDT Appointment Department of Laboratory Medicine in [address] [phone] Juan Grier, STUART, C.N.P., M.S.N. [address] [place] [phone] 03/24/2024 7:20 AM CDT Appointment Department of Laboratory Medicine in [address] [phone] Angelica Hutchins M.D. [address] [place] [phone] 04/07/2024 8:20 AM CDT Appointment Department of Laboratory Medicine in [address] [phone] Angelica Hutchins M.D. [address] [place] [phone] 04/14/2024 8:00 AM CDT Appointment Department of Laboratory Medicine in [address] [phone] Angelica Hutchins M.D. [address] [place] [phone] 04/15/2024 2:00 PM CDT Clinical Communication Virtual Review in [place], [place] 200 [place] [address] 04/17/2024 11:00 AM CDT Office Visit Department of Neurology in [place], [place] [address] [place] [phone] Wang Bass M.D. [address] [place] [phone] 04/22/2024 7:20 AM CDT Appointment Department of Laboratory Medicine in [address] [phone] Angelica Hutchins M.D. [address] [place] [phone] 04/28/2024 7:20 AM CDT Appointment Department of Laboratory Medicine in [address] [phone] Angelica Hutchins M.D. [address] [place] [phone] 04/28/2024 7:40 AM CDT Appointment Department of Laboratory Medicine in [address] [phone] Angelica Hutchins M.D. [address] [place] [phone] 05/05/2024 7:50 AM CDT Appointment Department of Laboratory Medicine in [address] [phone] Angelica Hutchins M.D. [address] [place] [phone] 05/12/2024 7:20 AM CDT Appointment Department of Laboratory Medicine in [address] [phone] Angelica Hutchins M.D. [address] [place] [phone] 05/19/2024 7:20 AM CDT Appointment Department of Laboratory Medicine in [address] [phone] Angelica Hutchins M.D. [address] [place] [phone] 05/26/2024 7:20 AM CDT Appointment Department of Laboratory Medicine in [address] [phone] Angelica Hutchins M.D. [address] [place] [phone] 05/26/2024 7:30 AM CDT Appointment Department of Laboratory Medicine in [address] [phone] Angelica Hutchins M.D. [address] [place] [phone] 06/02/2024 7:20 AM CDT Appointment Department of Laboratory Medicine in [address] [phone] Angelica Hutchins M.D. [address] [place] [phone] 06/30/2024 7:20 AM CDT Appointment Department of Laboratory Medicine in [address] [phone] Angelica Hutchins M.D. [address] [place] [phone] 06/30/2024 7:30 AM CDT Appointment Department of Laboratory Medicine in [address] [phone] Angelica Hutchins M.D. [address] [place] [phone] 07/29/2024 7:20 AM CDT Appointment Department of Laboratory Medicine in [address] [phone] Angelica Hutchins M.D. [address] [place] [phone] 07/29/2024 7:30 AM CDT Appointment Department of Laboratory Medicine in [address] [phone] Angelica Hutchins M.D. [address] [place] [phone] Health Maintenance Due Date Last Done Comments CT Colonography 1967 Cologuard 1967 Colonoscopy 1967 Colorectal Cancer Screening 1967 Diabetic Office Visit with Foot Exam 1967 FIT 1967 Cervical Cancer Screening 08/28/20192015 (Performed elsewhere), 07/28/2016, 11/26/2013 (Performed elsewhere), Additional history exists Hepatitis B Vaccines (3 of 3 - 19+ 3-dose series) 02/28/2021 01/03/2021, 11/16/2020, 01/24/2011, Additional history exists Dilated Eye Exam 11/01/2022 11/01/2021 Mammogram 10/04/2023 10/04/2022, 10/28 (Performed elsewhere), 11/15/2015 (Performed elsewhere), Additional history exists Depression Screening (Annual PHQ-2) 11/26/2023 Office Visit for Blood Pressure Check / Re-check 05/10/2024 02/08/2024 Hemoglobin A1C 07/30/2024 01/28/2024, 12/27, 08/30/2023, Additional history exists Urine Albumin 12/03/2024 12/03/2023, 09/27, 11/24/2019, Additional history exists Creatinine Level (Kidney Function Test) 02/20/2025 02/21/2024, 02/08/2024, 01/28/2024, Additional history exists Lipid (Cholesterol) Screening 01/14/2029 01/14/2024, 09/10/2023, 02/12/2023, Additional history exists DTaP,Tdap,and Td Vaccines (3 - Td or Tdap) 07/11/2031 07/11/2021, 12/27/2010 Pneumococcal vaccine (0-64 years) (4 of 4 - PPSV23 or PCV20) 2032 11/15/2018, 12/19/2017, 12/19/2017, Additional history exists Hepatitis A Vaccines Completed 07/11/2021, 11/16/20 Zoster Vaccines Completed 07/11/2021, 01/03/2021 HIV Screening Completed 08/30/2023, 01/25, 07/11/2011 Hepatitis C Screening Completed 08/30/2023, 023 COVID-19 Vaccine Completed 01/07/2024, 11/2021, 12/22/2021, Additional history exists Influenza Vaccine Completed 01/07/2024, , 09/16/2021, Additional history exists HPV Vaccines Aged Out No longer eligi ble based on patient's age to complete this topic Medical Devices Implanted Type Area Multimedia Author Device Identifier Shelf Expiration Date Model / Serial / Lot Grft Inf Spng Bmp Small 2.8 - [id number] Implanted:Qty: 1 on 11/07/2021 by Elio Hernandez M.D. at [facility]/Jason Bone or Tissue Right: Ankle Medtronic 04/25/2023 [id number] / / [id number] Scrw St Pthrd Nlck Sj 6.7x50 - [id number] Implanted:Qty: 1 on 11/07/2021 by Elio Hernandez M.D. at [facility] Hardware e.g. pins/screws /rods Right: Ankle Arthrex AR-8967-18 50 / / Scrw St Pthrd Nlck Sj 6.7x40 - [id number] Implanted:Qty: 1 on 11/07/2021 by Elio Hernandez M.D. at [facility] [employer] Hardware e.g. pins/screws /rods Right: Ankle Arthrex AR-8967-18 40 / / Scrw St Pthrd Nlck Sj 6.7x45 - [id number] Implanted:Qty: 1 on 11/07/2021 by Elio Hernandez M.D. at [facility] [employer]onda Hardware e.g. pins/screws /rods Right: Ankle Arthrex [id number] 45 / / Conversions - Default Historical Implant Device Implanted:12/22 (Quantity not on file) Hip Implant Left: Hip Description:Body Location - Hip L. both hips. Device Status Text - Hip Imp. Conversions - Default Historical Implant Device Implanted:12/22 (Quantity not on file) Hip Implant Bilatera l: Leg Description:Body Location - LowExtrem. both hips. Device Status Text - Hip Imp. Conversions - Default Historical Implant Device Implanted:12/22 (Quantity not on file) Knee Implant Bilatera l: Knee Description:Body Location - Knees. Device Status Text - Knee Imp. Conversions - Default Historical Implant Device Implanted:12/22 (Quantity not on file) Knee Implant Bilatera l: Knee Description:Body Location - Knees. Device Status Text - Knee Imp. Stent Uret Dbl. J 7 X 12 - [id number] Implanted:Qty: 1 on 07/20/2011 Ureteral Stent Other/Legacy - See Implant Description Description:Device Manufactu rer - [employer]. Device Status Text - [id number]. Explanted Type Area Multimedia Author Device Identifier Shelf Expiration Date Model / Serial / Lot Stnt Uret Cls Tp Dbl 7fx12 - [id number] Implanted:Qty : 1 on 08/30/2023 by Grant Godinez M.D. at [facility] Explanted:Qty : 1 on 09/02/2023 by Livia Lovell R.N. 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) BKV DNA DETECT/QUANT, P Routine 03/10/2024 7:43 AM CDT Transplant Renal (HCC) High 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 Immunodeficiency Due To Drugs (HCC) MR THORACIC SPINE WITHOUT AND WITH IV CONTRAST RAD - Routine (most inpatients and all outpatients) 03/04/2024 7:56 PM CDT Demyelinating Disease Central Nervous System (HCC) DIPSTICK, U STAT 02/21/2024 3:35 PM CDT PH, U STAT 02/21/2024 3:35 PM CDT OSMOLALITY, U STAT 02/21/2024 3:35 PM CDT MICROSCOPIC AUTOMATED STAT 02/21/2024 3:35 PM CDT URINALYSIS WITH MICROSCOPIC STAT 02/21/2024 3:35 PM CDT BACTERIAL CULTURE, AEROBIC + SUSC, URINE STAT 02/21/2024 3:35 PM CDT MR CERVICAL SPINE WITHOUT AND WITH IV CONTRAST RAD - Semiurgent (Fast; most ED patients; some inpatients) 02/21/2024 3:20 PM CDT MR BRAIN WITHOUT AND WITH IV CONTRAST RAD - Semiurgent (Fast; most ED patients; some inpatients) 02/21/2024 3:20 PM CDT INFLUENZA A, B, RSV, PCR, RAPID, V STAT 02/21/2024 2:33 PM CDT SARS CORONAVIRUS 2, PCR RAPID, V STAT 02/21/2024 2:33 PM CDT TROPONIN T, 2H/6H, 5TH GEN, P Timed 02/21/2024 12:20 PM CDT DX SHOULDER LEFT 2+ VIEWS RAD - Semiurgent (Fast; most ED patients; some inpatients) 02/21/2024 12:02 PM CDT DX CHEST AP OR PA AND LATERAL 2 VIEWS RAD - Semiurgent (Fast; most ED patients; some inpatients) 02/21/2024 12:02 PM CDT THYROID FUNCTION CASCADE, S STAT 02/21/2024 11:27 AM CDT TROPONIN T, BASELINE, 5TH GEN, P STAT 02/21/2024 11:27 AM CDT NT-PRO B-TYPE NATRIURETIC PEPTIDE (BNP), S STAT 02/21/2024 11:27 AM CDT LIPASE, S/P STAT 02/21/2024 11:27 AM CDT HEPATIC FUNCTION PANEL, S STAT 02/21/2024 11:27 AM CDT BASIC METABOLIC PANEL, S/P STAT 02/21/2024 11:27 AM CDT CBC WITH DIFFERENTIAL, B STAT 02/21/2024 11:27 AM CDT PROTHROMBIN TIME (PT), P STAT 02/21/2024 11:27 AM CDT ECG STAT 02/21/2024 11:22 AM CDT US KIDNEY TRANSPLANT BIOPSY LEFT RAD - Routine (most inpatients and all outpatients) 02/08/2024 11:20 AM CDT Transplant Renal (HCC) RENAL PATHOLOGY Routine 02/08/2024 11:06 AM CDT Transplant Renal (HCC) DIPSTICK, U Routine 02/08/2024 6:58 AM CDT IL OSMOLALITY ASSAY URINE Routine 02/08/2024 6:58 AM CDT PH, RANDOM, U Routine 02/08/2024 6:58 AM CDT MICROSCOPIC MANUAL Routine 02/08/2024 6: 58 AM CDT URINALYSIS WITH MICROSCOPIC Routine 02/08/2024 6:58 AM CDT Transplant Renal ([facility]) BACTERIAL CULTURE, AEROBIC + SUSC, URINE Routine 02/08/2024 6:58 AM CDT Transplant Renal ([facility]) PROTHROMBIN TIME (PT), P Routine 02/08/2024 6:52 AM CDT Transplant Renal ([facility]) MAGNESIUM, S Routine 02/08/2024 6:52 AM CDT Transplant Renal ([facility]) RENAL FUNCTION PANEL, S Routine 02/08/2024 6:52 AM CDT Transplant Renal ([facility]) CBC WITH DIFFERENTIAL, B Routine 02/08/2024 6:52 AM CDT Transplant Renal ([facility]) BKV DNA DETECT/QUANT, P Routine 02/08/2024 6:51 AM CDT Transplant Renal ([facility]) TACROLIMUS LEVEL, B Routine 02/08/2024 6 :48 AM CDT Transplant Renal ([facility]) IRON AND TOT IRON-BINDING CAPACITY, S/P Routine 02/08/2024 6:34 AM CDT FERRITIN, S Routine 02/08/2024 6:34 AM CDT Transplant Renal ([facility]) URINALYSIS WITH MICROSCOPIC Routine 01/28/2024 7:41 AM MATRIX BATH ATTENDANT Aftercare Transplant Renal (HCC) High 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 Transplant Renal (HCC) Immunodeficiency Due To Drugs ([facility]) BACTERIAL CULTURE, AEROBIC + SUSC, URINE Routine 01/28/2024 7:41 AM MATRIX BATH ATTENDANT Aftercare Transplant Renal (HCC) High 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) CBC WITH DIFFERENTIAL, B Routine 01/28/2024 7:34 AM MATRIX BATH ATTENDANT Aftercare Transplant Renal (HCC) High 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) BASIC METABOLIC PANEL, S/P Routine 01/28/2024 7:34 AM MATRIX BATH ATTENDANT Aftercare Transplant Renal (HCC) High 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) HEMOGLOBIN A1C, B Routine 01/28/2024 7:3 4 AM MATRIX BATH ATTENDANT Diabetes Mellitus 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) BKV DNA DETECT/QUANT, P Routine 01/28/2024 7:34 AM MATRIX BATH ATTENDANT Transplant Renal (HCC) High 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 Immunodeficiency Due To Drugs (HCC) TACROLIMUS LEVEL, B Routine 01/28/2024 7 :33 AM MATRIX BATH ATTENDANT Aftercare Transplant Renal (HCC) High 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) CMV DNA DETECT/QUANT, P Routine 01/28/2024 7:33 AM MATRIX BATH ATTENDANT Aftercare Transplant Renal (HCC) MAGNESIUM, S Routine 01/18/2024 8:13 AM MATRIX BATH ATTENDANT Aftercare Transplant Renal (HCC) High 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 Immunodeficiency Due To Drugs (HCC) PHOSPHORUS (INORGANIC), S Routine 01/18/2024 8:13 AM MATRIX BATH ATTENDANT Aftercare Transplant Renal (HCC) High 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 Immunodeficiency Due To Drugs (HCC) TACROLIMUS LEVEL, B Routine 01/18/2024 8 :13 AM MATRIX BATH ATTENDANT Aftercare Transplant Renal (HCC) High 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 Immunodeficiency Due To Drugs (HCC) BASIC METABOLIC PANEL, S/P Routine 01/18/2024 8:13 AM MATRIX BATH ATTENDANT Aftercare Transplant Renal (HCC) High 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 Immunodeficiency Due To Drugs (HCC) CBC WITH DIFFERENTIAL, B Routine 01/18/2024 8:13 AM MATRIX BATH ATTENDANT Aftercare Transplant Renal (HCC) High 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 Immunodeficiency Due To Drugs (HCC) BKV DNA DETECT/QUANT, P Routine 01/18/2024 8:13 AM MATRIX BATH ATTENDANT Aftercare Transplant Renal (HCC) High 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 Immunodeficiency Due To Drugs (HCC) CMV DNA DETECT/QUANT, P Routine 01/18/2024 8:13 AM MATRIX BATH ATTENDANT Illness Febrile DX CHEST AP OR PA AND LATERAL 2 VIEWS RAD - Semiurgent (Fast; most ED patients; some inpatients) 01/15/2024 10:31 AM MATRIX BATH ATTENDANT BACTERIA / PHOEBE CULTURE, BLOOD Routine 01/15/2024 10:28 AM MATRIX BATH ATTENDANT BACTERIA / PHOEBE CULTURE, BLOOD Routine 01/15/2024 10:28 AM MATRIX BATH ATTENDANT VBG (VENOUS BLOOD GAS), POCT, B Routine 01/15/2024 9:55 AM MATRIX BATH ATTENDANT HC URINALYSIS AUTO W MICRO Routine 01/15/2024 9:55 AM MATRIX BATH ATTENDANT C-REACTIVE PROTEIN (CRP), S/P Routine 01/15/2024 9:55 AM MATRIX BATH ATTENDANT URINALYSIS WITH MICROSCOPIC IF INDICATED, U Routine 01/15/2024 9:55 AM MATRIX BATH ATTENDANT LACTATE, B/P Routine 01/15/2024 9:55 AM MATRIX BATH ATTENDANT COMPREHENSIVE METABOLIC PANEL, S/P Routine 01/15/2024 9:55 AM MATRIX BATH ATTENDANT CBC WITH DIFFERENTIAL, B Routine 01/15/2024 9:55 AM MATRIX BATH ATTENDANT BACTERIAL CULTURE, AEROBIC + SUSC, URINE Routine 01/15/2024 9:55 AM MATRIX BATH ATTENDANT BACTERIA / PHOEBE CULTURE, BLOOD Routine 01/14/2024 11:25 AM MATRIX BATH ATTENDANT Transplant Renal (HCC) Illness Febrile RESPIRATORY PANEL, PCR, WINDOWS APPLICATION DEVELOPER Routine 01/14/2024 11:25 AM MATRIX BATH ATTENDANT Transplant Renal (HCC) Illness Febrile GROUP A STREP PCR, THROAT Routine 01/14/2024 11:24 AM MATRIX BATH ATTENDANT Transplant Renal (HCC) Illness Febrile BACTERIA / PHOEBE CULTURE, BLOOD Routine 01/14/2024 11:06 AM MATRIX BATH ATTENDANT Transplant Renal (HCC) Illness Febrile BKV DNA DETECT/QUANT, U Routine 01/14/2024 8:54 AM MATRIX BATH ATTENDANT 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 DIPSTICK, U Routine 01/14/2024 8:19 AM MATRIX BATH ATTENDANT IL OSMOLALITY ASSAY URINE Routine 01/14/2024 8:19 AM MATRIX BATH ATTENDANT PH, RANDOM, U Routine 01/14/2024 8:19 AM MATRIX BATH ATTENDANT MICROSCOPIC MANUAL Routine 01/14/2024 8: 19 AM MATRIX BATH ATTENDANT URINALYSIS WITH MICROSCOPIC Routine 01/14/2024 8:19 AM MATRIX BATH ATTENDANT 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 GRAM'S ST, U Routine 01/14/2024 8:19 AM MATRIX BATH ATTENDANT 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 LAKE/KID STORAGE, U Routine 01/14/2024 8: 19 AM MATRIX BATH ATTENDANT 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 BACTERIAL CULTURE, AEROBIC + SUSC, URINE Routine 01/14/2024 8:19 AM MATRIX BATH ATTENDANT 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 HLA CLASS I/II COMBINED CPRA, SERUM Routine 01/14/2024 8:15 AM MATRIX BATH ATTENDANT HLA CLASS II SAB ANTIBODY SCREEN Routine 01/14/2024 8:15 AM MATRIX BATH ATTENDANT 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 HLA CLASS I SAB ANTIBODY SCREEN Routine 01/14/2024 8:15 AM MATRIX BATH ATTENDANT 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 MYCOPHENOLIC ACID, S Routine 01/14/2024 8:15 AM MATRIX BATH ATTENDANT 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 TACROLIMUS LEVEL, B Routine 01/14/2024 8 :15 AM MATRIX BATH ATTENDANT 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 HEMOGLOBIN A1C, B Routine 01/14/2024 8:1 5 AM MATRIX BATH ATTENDANT 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 LAKE/KID POST TRANS STORAGE, B Routine 01/14/2024 8:15 AM MATRIX BATH ATTENDANT 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 25-HYDROXYVITAMIN D2 AND D3, S Routine 01/14/2024 8:15 AM MATRIX BATH ATTENDANT 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 TROPONIN T, 5TH GEN, P Routine 01/14/2024 8:15 AM MATRIX BATH ATTENDANT 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 LIPID PANEL, S Routine 01/14/2024 8:15 AM MATRIX BATH ATTENDANT 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 PHOSPHORUS (INORGANIC), S Routine 01/14/2024 8:15 AM MATRIX BATH ATTENDANT 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 MAGNESIUM, S Routine 01/14/2024 8:15 AM MATRIX BATH ATTENDANT 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 COMPREHENSIVE METABOLIC PANEL, S/P Routine 01/14/2024 8:15 AM MATRIX BATH ATTENDANT 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 CBC WITH DIFFERENTIAL, B Routine 01/14/2024 8:15 AM MATRIX BATH ATTENDANT 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 BKV DNA DETECT/QUANT, P Routine 01/14/2024 8:15 AM MATRIX BATH ATTENDANT 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 ACTIVATED PARTIAL THROMBOPLASTIN TIME (APTT), P Routine 01/14/2024 8:14 AM MATRIX BATH ATTENDANT 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 PROTHROMBIN TIME (PT), P Routine 01/14/2024 8:14 AM MATRIX BATH ATTENDANT 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 MYCOPHENOLIC ACID, S Routine 12/31/2023 9:41 AM MATRIX BATH ATTENDANT Transplant Renal (HCC) High 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 Immunodeficiency (HCC) MYCOPHENOLIC ACID, S Routine 12/31/2023 8:12 AM MATRIX BATH ATTENDANT Transplant Renal (HCC) High 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 Immunodeficiency (HCC) PHOSPHORUS (INORGANIC), S Routine 12/31/2023 7:48 AM MATRIX BATH ATTENDANT Transplant Renal (HCC) High 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 Immunodeficiency (HCC) Hypophosphatemia MAGNESIUM, S Routine 12/31/2023 7:48 AM MATRIX BATH ATTENDANT Transplant Renal (HCC) High 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 Immunodeficiency (HCC) Hypomagnesemia CBC WITH DIFFERENTIAL, B Routine 12/31/2023 7:48 AM MATRIX BATH ATTENDANT Transplant Renal (HCC) High 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 Immunodeficiency (HCC) GLUCOSE, FASTING, S/P Routine 12/31/2023 7:48 AM MATRIX BATH ATTENDANT Transplant Renal (HCC) High 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 Immunodeficiency (HCC) BASIC METABOLIC PANEL, S/P Routine 12/31/2023 7:48 AM MATRIX BATH ATTENDANT Transplant Renal (HCC) High 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 Immunodeficiency (HCC) BKV DNA DETECT/QUANT, P Routine 12/31/2023 7:48 AM MATRIX BATH ATTENDANT Transplant Renal (HCC) High 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 Immunodeficiency Due To Drugs (HCC) MYCOPHENOLIC ACID, S Routine 12/31/2023 7:35 AM MATRIX BATH ATTENDANT Transplant Renal (HCC) High 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 Immunodeficiency (HCC) TACROLIMUS LEVEL, B Routine 12/31/2023 7 :35 AM MATRIX BATH ATTENDANT Transplant Renal (HCC) High 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 Immunodeficiency (HCC) PHOSPHORUS (INORGANIC), S Routine 12/17/2023 7:35 AM MATRIX BATH ATTENDANT MAGNESIUM, S Routine 12/17/2023 7:35 AM MATRIX BATH ATTENDANT TACROLIMUS LEVEL, B Timed 12/17/2023 7 :35 AM MATRIX BATH ATTENDANT BASIC METABOLIC PANEL, S/P Routine 12/17/2023 7:35 AM MATRIX BATH ATTENDANT CBC WITH DIFFERENTIAL, B Routine 12/17/2023 7:35 AM MATRIX BATH ATTENDANT BKV DNA DETECT/QUANT, P Routine 12/17/2023 7:35 AM MATRIX BATH ATTENDANT Transplant Renal (HCC) High 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 Immunodeficiency Due To Drugs (HCC) ALBUMIN, RANDOM, U Routine 12/03/2023 8: 54 AM MATRIX BATH ATTENDANT 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 BKV DNA Detect/Quant, P 159(A) Undetected IU/mL 03/11/2024 7:45 PM CDT [facility] Comment: Result in log IU/mL is 2.20. ----ADDITIONAL INFORMATION---- The quantification range of this assay is 22 to 100,000,000 IU/mL (1.34 log to 8.00 log IU/mL). Testing was performed using the chari BKV test ([employer] Blood (Blood, Venous) 03/10/2024 7:43 AM CDT 03/11/2024 7:17 AM CDT Marlena Stewart APRNN.P., M.S.N. LAB MICROBIOLOGY - BLOOD ORDERABLES [facility] [address] [place] [address] [facility] [address] [place] [address] [place] [address] * CMV DNA Detect / Quant, Plasma (03/10/2024 7:43 AM CDT) Only the most recent of3 resultswithin the time period is included. CMV DNA Detect/Quant, P Undetected Undetected IU/mL 03/11/2024 1:29 PM CDT [facility] Comment: Result in log IU/mL is Undetected. ----ADDITIONAL INFORMATION---- The quantification range of this assay is 35 to 10,000,000 IU/mL (1.54 log to 7.00 log IU/mL). Testing was performed using the chari CMV test ([employer] Blood (Blood, Venous) 03/10/2024 7:43 AM CDT 03/11/2024 7:17 AM CDT Angelica Hutchins M.D. LAB MICROBIOLOG Y - BLOOD ORDERABLES [facility] [address] [place] [address] [facility] [address] [place] [address] [place] [address] * MR Thoracic Spine without and with IV Contrast (03/04/2024 7:56 PM CDT) Anatomical Region Laterality Modality Thoracic Spine, Neuroradiolo gy RST LOS, Neuroradiology ARZ LOS, Neuroradiology FLA LOS N/A Magnetic Resonance Impressions 03/05/2024 11:07 AM CDT No evidence of demyelinating disease involving the thoracic cord. Narrative 03/05/2024 11:07 AM CDT EXAM: MR THORACIC SPINE WITHOUT AND WITH IV CONTRAST COMPARISON: Prior study dated 22 November 2022. FINDINGS: MR examination of the thoracic spine demonstrates mild scoliosis with convexity toward the right. No canal compromise is demonstrated. The thoracic cord is normal in caliber without evidence of intramedullary signal abnormality. Postcontrast sequence demonstrates no abnormal intramedullary enhancement. Neural foramina are widely patent. Vertebral marrow signal and paraspinal soft tissues are unremarkable. Procedure Note James Tsai M.D. - 03/05/2024 EXAM: MR THORACIC SPINE WITHOUT AND WITH IV CONTRAST COMPARISON: Prior study dated 22 November 2022. FINDINGS: MR examination of the thoracic spine demonstrates mild scoliosis withconvexity toward the right. No canal compromise is demonstrated. Thethoracic cord is normal in caliber without evidence of intramedullarysignal abnormality. Postcontrast sequence demonstrates no abnormal intramedullary enhancement. Neural foramina arewidely patent. Vertebral marrow signal and paraspinal soft tissues areunremarkable. IMPRESSION: No evidence of demyelinating disease involving the thoracic cord. Wang Bass M.D. IMG MRI PROCEDURES * Dipstick, Urine (02/21/2024 3:35 PM CDT) Only the most recent of3 resultswithin the time period is included. Hemoglobin, QL, U Negative Negative 02/21/2024 4:05 PM CDT DTL Leukocyte Esterase, U Negative Negative 02/21/2024 4:05 PM CDT DTL Nitrite, U Negative Negative 02/21/2024 4:05 PM CDT DTL Ketone, U Negative Negative mg/dL 02/21/2024 4:05 PM CDT DTL Glucose, U Negative Negative mg/dL 02/21/2024 4:05 PM CDT DTL Urine 02/21/2024 3:35 PM CDT 02/21/2024 3:56 PM CDT Rafita Patterson P.A.-C. LAB URINE ORDERA BLES Performing Organization Address [facility] Co de Phone Number [facility] [address] [place] [address], [facility] [address] [place] [address] * Microscopic Automated (02/21/2024 3:35 PM CDT) Pathologist [facility] Microscopy Normal 02/21/2024 4:05 PM CDT DTL RBC None Seen <3 /hpf 02/21/2024 4:05 PM CDT DTL WBC None Seen /hpf 02/21/2024 4:05 PM CDT DTL Comment: ----REFERENCE VALUE---- <4 ??(Males) <11 (Females) Urine 02/21/2024 3:35 PM CDT 02/21/2024 3:56 PM CDT Rafita SamsCSravanthi LAB URINE ORDERA BLES Performing Organization Address City/[facility]/ZIP Co de Phone Number [facility] [address] [place] [address], [facility] DTL [facility] [address] [place] [address] * Bacterial Culture, Aerobic + Susceptibility, Urine (02/21/2024 3:35 PM CDT) Only the most recent of5 resultswithin the time period is included. Urine Culture No growth after 1 day of incubation. 02/22/2024 12:27 PM CDT DTL Urine (Urine, Midstream) 02/21/2024 3:35 PM CDT 02/21/2024 4:41 PM CDT Comment:Specimen Source Site : Urine Rafita Patterson P.A.-C. LAB MICROBIOLOGY - GENERAL ORDERABLES Performing Organization Address City/[facility] Co de Phone Number [facility] [address] [place] [address] * pH, Urine (02/21/2024 3:35 PM CDT) pH, U 5.2 4.5 - 8.0 02/21/2024 4:5 4 PM CDT DTL Urine 02/21/2024 3:35 PM CDT 02/21/2024 3:56 PM CDT Rafita Patterson P.A.-C. LAB URINE ORDERA BLES Performing Organization Address [facility] Co de Phone Number [facility] [address] [place], [place] [address] [place] [address] * Osmolality, Urine (02/21/2024 3:35 PM CDT) Osmolality, U 678 150 - 1150 mOsm/kg 02/21/2024 4:54 PM CDT DTL Urine 02/21/2024 3:35 PM CDT 02/21/2024 3:56 PM CDT Rafita Patterson P.A.-C. LAB URINE ORDERA BLES Performing Organization Address City/[facility] Co de Phone Number [facility] [address] [place], [place] [id number] [place] [address] [place] [address] * Urinalysis, with Microscopic: Urine, Midstream (02/21/2024 3:35 PM CDT) Only the most recent of4 resultswithin the time period is included. Source Urine, Urine, Midstream 02/21/2024 3:56 PM CDT DTL Color, U Yellow 02/21/2024 3:56 PM CDT DTL Clarity, U Clear 02/21/2024 3:56 PM CDT DTL Protein, U 7 <26 mg/dL 02/21/2024 4:34 PM CDT DTL Protein/Osmol ality 0.10 <0.42 ratio 02/21/2024 4:54 PM CDT DTL Predicted 24 HR Protein, U 85 <229 mg/24 h 02/21/2024 4:54 PM CDT DTL Predicted Range 21-345 mg/24 h 02/21/2024 4:54 PM CDT DTL Urine (Urine, Midstream) 02/21/2024 3:35 PM CDT 02/21/2024 3:56 PM CDT Rafita Patterson P.A.-C. LAB URINE ORDERA BLES Performing Organization Address [facility]/ZIP Co de Phone Number [facility] [address] [place] [address], [facility] [address] [place] [address] * MR Cervical Spine without and with IV Contrast (02/21/2024 3:20 PM CDT) Anatomical Region Laterality Modality Spine, Cervical Spine, Neuro radiology RST LOS, Neuroradiology ARZ LOS, Neuroradiology FLA LOS N/A Magneti c Resonance Impressions 02/21/2024 4:05 PM CDT 1. ??No significant interval change in the number and extent of demyelinating lesions in the brain. No findings for active demyelination. 2. ??Stable small right frontal meningioma. 3. ??Stable demyelinating lesion within the cervical cord at C3-4. No new cervical lesions and no findings for active demyelination. 4. ??Similar cervical spondylosis, primarily at C5-6. Narrative 02/21/2024 4:05 PM CDT EXAM: MR BRAIN WITHOUT AND WITH IV CONTRAST, MR CERVICAL SPINE WITHOUT AND WITH IV CONTRAST COMPARISON: Brain and cervical spine MRIs 11/22/2022 and 11/02/2021. FINDINGS: BRAIN: Compared to the prior MRI from 11/22/2022 there is no significant change in the number and extent of T2 hyperintense lesions throughout the cerebral white matter, consistent with demyelinating lesions. No evidence of associated enhancement or diffusion restriction to suggest active demyelination. Remainder of the brain appears unchanged. No evidence of acute infarct. No intracranial hemorrhage or abnormal extra-axial fluid collection. No significant intracranial mass effect or midline shift. Stable mineralization of the bilateral basal ganglia. Stable extra-axial enhancing lesion along the right frontal convexity, likely representing a small meningioma. This does not exert significant mass effect on the underlying brain parenchyma. No additional abnormal intracranial enhancement. Major intracranial flow voids appear patent. Generalized parenchymal volume loss, greater than expected for age. Minimal mucosal thickening in the paranasal sinuses. Mastoid air cells are clear. CERVICAL SPINE: Subtle T2 hyperintense lesion within the left aspect of the cord at the C3-4 level (series 10 images 15 and 16), unchanged from the prior exams. This demonstrates no associated enhancement. No definite new demyelinating lesions are identified within the cervical spinal cord. Straightening of the normal cervical lordosis. Cervical vertebral body heights are maintained. Multilevel cervical spondylosis, most pronounced at C5-6 where there is advanced disc height loss and a disc osteophyte complex which indents the ventral thecal sac and contacts the left ventral aspect of the cord, resulting in mild spinal canal narrowing, similar to the prior exam. No evidence of abnormal cord signal at this level. No significant spinal canal narrowing at the remaining cervical disc levels. Facet and uncovertebral joint hypertrophy contribute to moderate bilateral foraminal narrowing at C5-6. The perivertebral soft tissues are unremarkable. Procedure Note Gypsy Shaw M.D. - 02/21/2024 EXAM: MR BRAIN WITHOUT AND WITH IV CONTRAST, MR CERVICAL SPINE WITHOUT ANDWITH IV CONTRAST COMPARISON: Brain and cervical spine MRIs 11/22/2022 and 11/02/2021. FINDINGS: BRAIN: Compared to the prior MRI from 11/22/2022 there is no significantchange in the number and extent of T2 hyperintense lesions throughout thecerebral white matter, consistent with demyelinating lesions. No evidenceof associated enhancement or diffusion restriction to suggest active demyelination. Remainder of the brain appears unchanged. No evidence of acute infarct. Nointracranial hemorrhage or abnormal extra-axial fluid collection. Nosignificant intracranial mass effect or midline shift. Stablemineralization of the bilateral basal ganglia. Stable extra-axial enhancing lesion along the right frontal convexity,likely representing a small meningioma. This does not exert significantmass effect on the underlying brain parenchyma. No additional abnormalintracranial enhancement. Major intracranial flow voids appear patent. Generalized parenchymal volumeloss, greater than expected for age. Minimal mucosal thickening in theparanasal sinuses. Mastoid air cells are clear. CERVICAL SPINE: Subtle T2 hyperintense lesion within the left aspect ofthe cord at the C3-4 level (series 10 images 15 and 16), unchanged fromthe prior exams. This demonstrates no associated enhancement. No definitenew demyelinating lesions are identified within the cervical spinal cord. Straightening of the normal cervical lordosis. Cervical vertebral bodyheights are maintained. Multilevel cervical spondylosis, most pronouncedat C5-6 where there is advanced disc height loss and a disc osteophytecomplex which indents the ventral thecal sac and contacts the left ventral aspect of the cord, resulting inmild spinal canal narrowing, similar to the prior exam. No evidence ofabnormal cord signal at this level. No significant spinal canal narrowingat the remaining cervical disc levels. Facet and uncovertebral joint hypertrophy contribute to moderatebilateral foraminal narrowing at C5-6. The perivertebral soft tissues areunremarkable. IMPRESSION: 1. No significant interval change in the number and extent ofdemyelinating lesions in the brain. No findings for activedemyelination. 2. Stable small right frontal meningioma. 3. Stable demyelinating lesion within the cervical cord at C3-4. No newcervical lesions and no findings for active demyelination. 4. Similar cervical spondylosis, primarily at C5-6. Rafita Patterson P.A.-C. IMG MRI PROCEDUR ES * MR Brain without and with IV Contrast (02/21/2024 3:20 PM CDT) Anatomical Region Laterality Modality Head, Brain, Neuroradiology RST LOS, Neuroradiology ARZ LOS, Neuroradiology FLA LOS N/A Magnetic Resonance Impressions 02/21/2024 4:05 PM CDT 1. ??No significant interval change in the number and extent of demyelinating lesions in the brain. No findings for active demyelination. 2. ??Stable small right frontal meningioma. 3. ??Stable demyelinating lesion within the cervical cord at C3-4. No new cervical lesions and no findings for active demyelination. 4. ??Similar cervical spondylosis, primarily at C5-6. Narrative 02/21/2024 4:05 PM CDT EXAM: MR BRAIN WITHOUT AND WITH IV CONTRAST, MR CERVICAL SPINE WITHOUT AND WITH IV CONTRAST COMPARISON: Brain and cervical spine MRIs 11/22/2022 and 11/02/2021. FINDINGS: BRAIN: Compared to the prior MRI from 11/22/2022 there is no significant change in the number and extent of T2 hyperintense lesions throughout the cerebral white matter, consistent with demyelinating lesions. No evidence of associated enhancement or diffusion restriction to suggest active demyelination. Remainder of the brain appears unchanged. No evidence of acute infarct. No intracranial hemorrhage or abnormal extra-axial fluid collection. No significant intracranial mass effect or midline shift. Stable mineralization of the bilateral basal ganglia. Stable extra-axial enhancing lesion along the right frontal convexity, likely representing a small meningioma. This does not exert significant mass effect on the underlying brain parenchyma. No additional abnormal intracranial enhancement. Major intracranial flow voids appear patent. Generalized parenchymal volume loss, greater than expected for age. Minimal mucosal thickening in the paranasal sinuses. Mastoid air cells are clear. CERVICAL SPINE: Subtle T2 hyperintense lesion within the left aspect of the cord at the C3-4 level (series 10 images 15 and 16), unchanged from the prior exams. This demonstrates no associated enhancement. No definite new demyelinating lesions are identified within the cervical spinal cord. Straightening of the normal cervical lordosis. Cervical vertebral body heights are maintained. Multilevel cervical spondylosis, most pronounced at C5-6 where there is advanced disc height loss and a disc osteophyte complex which indents the ventral thecal sac and contacts the left ventral aspect of the cord, resulting in mild spinal canal narrowing, similar to the prior exam. No evidence of abnormal cord signal at this level. No significant spinal canal narrowing at the remaining cervical disc levels. Facet and uncovertebral joint hypertrophy contribute to moderate bilateral foraminal narrowing at C5-6. The perivertebral soft tissues are unremarkable. Procedure Note Gypsy Shaw M.D. - 02/21/2024 EXAM: MR BRAIN WITHOUT AND WITH IV CONTRAST, MR CERVICAL SPINE WITHOUT ANDWITH IV CONTRAST COMPARISON: Brain and cervical spine MRIs 11/22/2022 and 11/02/2021. FINDINGS: BRAIN: Compared to the prior MRI from 11/22/2022 there is no significantchange in the number and extent of T2 hyperintense lesions throughout thecerebral white matter, consistent with demyelinating lesions. No evidenceof associated enhancement or diffusion restriction to suggest active demyelination. Remainder of the brain appears unchanged. No evidence of acute infarct. Nointracranial hemorrhage or abnormal extra-axial fluid collection. Nosignificant intracranial mass effect or midline shift. Stablemineralization of the bilateral basal ganglia. Stable extra-axial enhancing lesion along the right frontal convexity,likely representing a small meningioma. This does not exert significantmass effect on the underlying brain parenchyma. No additional abnormalintracranial enhancement. Major intracranial flow voids appear patent. Generalized parenchymal volumeloss, greater than expected for age. Minimal mucosal thickening in theparanasal sinuses. Mastoid air cells are clear. CERVICAL SPINE: Subtle T2 hyperintense lesion within the left aspect ofthe cord at the C3-4 level (series 10 images 15 and 16), unchanged fromthe prior exams. This demonstrates no associated enhancement. No definitenew demyelinating lesions are identified within the cervical spinal cord. Straightening of the normal cervical lordosis. Cervical vertebral bodyheights are maintained. Multilevel cervical spondylosis, most pronouncedat C5-6 where there is advanced disc height loss and a disc osteophytecomplex which indents the ventral thecal sac and contacts the left ventral aspect of the cord, resulting inmild spinal canal narrowing, similar to the prior exam. No evidence ofabnormal cord signal at this level. No significant spinal canal narrowingat the remaining cervical disc levels. Facet and uncovertebral joint hypertrophy contribute to moderatebilateral foraminal narrowing at C5-6. The perivertebral soft tissues areunremarkable. IMPRESSION: 1. No significant interval change in the number and extent ofdemyelinating lesions in the brain. No findings for activedemyelination. 2. Stable small right frontal meningioma. 3. Stable demyelinating lesion within the cervical cord at C3-4. No newcervical lesions and no findings for active demyelination. 4. Similar cervical spondylosis, primarily at C5-6. Rafita Patterson P.A.-C. IMG MRI PROCEDUR ES * Influenza A, B, RSV, PCR, Rapid (02/21/2024 2:33 PM CDT) Influenza A, PCR, Rapid, V Negative Negative 02/21/2024 3:04 PM CDT [facility] Influenza B, PCR, Rapid, V Negative Negative 02/21/2024 3:04 PM CDT [facility] Resp Synctial Virus, PCR, Rapid Negative Negative 02/21/2024 3:04 PM CDT [facility] Specimen Source Swab, Nasopharynx 02/21/2024 3:03 PM CDT [facility] Swab (Nasopharynx) 02/21/2024 2:33 PM CDT 02/21/2024 2:39 PM CDT Rafita Patterson P.A.-C. LAB MICROBIOLOGY - GENERAL ORDERABLES [facility] [address] [place] [address] * SARS Coronavirus 2, PCR Rapid Symptomatic (02/21/2024 2:33 PM CDT) SARS CoV-2, PCR, Rapid, V Undetected Undetected 02/21/2024 3:03 PM CDT [facility] Comment: ----ADDITIONAL INFORMATION---- This RT-PCR test was performed using the [employer] SARS-CoV-2 and Influenza A/B Reagent assay from [employer], which has received Emergency Use Authorization(EUA) by the U.S. Food and Drug Administration. Fact sheets for this Emergency Use Authorization (EUA) assay can be found at the following links: For Healthcare Providers: https://www.fda.gov/media/054416/download For Patients: https://www.fda.gov/media/321160/download SARS Coronavirus 2, Rapid, Source Swab, Nasopharynx 02/21/2024 2:39 PM CDT [facility] Swab (Nasopharynx) 02/21/2024 2:33 PM CDT 02/21/2024 2:39 PM CDT Rafita Patterson P.A.-C. LAB MICROBIOLOGY - GENERAL ORDERABLES [facility] [address] [place] [address], [facility] [address] [place] [address] * Troponin T, 2h/6h, 5th Gen (02/21/2024 12:20 PM CDT) Troponin T, 2 hr, 5th gen 8 <=10 ng/L 02/21/2024 1:39 PM CDT [facility] 2H Delta -1 ng/L 02/21/2024 1:39 PM CDT [facility] 2H Delta Interp Not Changing 02/21/2024 1:39 PM CDT [facility] Troponin T, 6 hr, 5th gen CANCELED ng/L 02/21/2024 1:39 PM CDT [facility] Comment:Result canceled by t he ancillary. 6H Delta CANCELED ng/L 02/21/2024 12:53 PM CDT [facility] Comment:Result canceled by t he ancillary. 6H Delta % CANCELED % 02/21/2024 12:53 PM CDT [facility] Comment:Result canceled by t he ancillary. Blood (Blood, Venous) 02/21/2024 12:20 PM CDT 02/21/2024 12:36 PM CDT Narrative [facility] - 02/21/2024 1:39 PM CDT Specimen Information: Specimen ID: [id number] Specimen Type: Blood Specimen Collection Start Date: 02/21/2024 12:20 PM Specimen Received Date: 02/21/2024 12:36 PM Specimen ID: [id number] Specimen Type: Blood Rubio Reyes P.A.-C. LAB BLOOD TROPONIN [facility] [address] [place] [address], [facility] [address] [place] [address] * DX Shoulder Left 2+ Views (02/21/2024 12:02 PM CDT) Anatomical Region Laterality Modality Upper Extremity, Shoulder, M usculoskeletal RST LOS, Musculoskeletal ARZ LOS, Muskuloskeletal FLA LOS Left Digit al Radiography Impressions 02/21/2024 12:05 PM CDT Anatomic alignment of the left glenohumeral joint. Narrowing of the subacromial space can be seen with rotator cuff arthropathy. Presumed granuloma, left apex. Narrative 02/21/2024 12:05 PM CDT EXAM: ??DX SHOULDER LEFT 2+ VIEWS Procedure Note Kar Emanuel M.D. - 02/21/2024 EXAM: DX SHOULDER LEFT 2+ VIEWS IMPRESSION: Anatomic alignment of the left glenohumeral joint. Narrowing of thesubacromial space can be seen with rotator cuff arthropathy. Presumedgranuloma, left apex. Rubio Reyes P.A.-C. IMG DIAGNOSTIC LESLY GING PROCEDURES * DX Chest AP or PA and Lateral 2 Views (02/21/2024 12:02 PM CDT) Only the most recent of2 resultswithin the time period is included. Anatomical Region Laterality Modality Chest, Thoracic RST LOS, Tho racic ARZ LOS, Thoracic FLA LOS N/A Digital Radiography Impressions 02/21/2024 12:04 PM CDT Lungs are clear without consolidation or effusion. Slight elevation of the right hemidiaphragm. Presumed pill fragments in the stomach. Degenerative changes in the spine. Old right rib fractures. Narrative 02/21/2024 12:04 PM CDT EXAM: ??DX CHEST AP OR PA AND LATERAL 2 VIEWS Procedure Note Kar Emanuel M.D. - 02/21/2024 EXAM: DX CHEST AP OR PA AND LATERAL 2 VIEWS IMPRESSION: Lungs are clear without consolidation or effusion. Slight elevation of theright hemidiaphragm. Presumed pill fragments in the stomach. Degenerativechanges in the spine. Old right rib fractures. Rubio Reyes P.A.-C. IMG DIAGNOSTIC LESLY GING PROCEDURES * Troponin T, Baseline, 5th gen (02/21/2024 11:27 AM CDT) Pathologist [facility] Troponin T, Baseline, 5th gen 9 <=10 ng/L 02/21/2024 11:48 AM CDT [facility] Blood (Blood, Venous) 02/21/2024 11:27 AM CDT 02/21/2024 11:31 AM CDT Rubio Reyes P.A.-C. LAB BLOOD TROPONIN [address] [address], [facility] [address] [place] [address] * Hepatic Function Panel (02/21/2024 11:27 AM CDT) Bilirubin, Total, S 0.5 0.0 - 1.2 mg/dL 02/21/2024 12:15 PM CDT DTL Bilirubin, Direct, S <0.2 0.0 - 0.3 mg/dL 02/21/2024 12:15 PM CDT DTL Aspartate Aminotransferase (AST), S 24 8 - 43 U/L 02/21/2024 12:15 PM CDT DTL Alanine Aminotransferase (ALT), S 12 7 - 45 U/L 02/21/2024 12:15 PM CDT DTL Alkaline Phosphatase, S 70 35 - 104 U/L 02/21/2024 12:15 PM CDT DTL Albumin, S 4.2 3.5 - 5.0 g/dL 02/21/2024 12:15 PM CDT DTL Protein, Total, S 6.7 6.3 - 7.9 g/dL 02/21/2024 12:15 PM CDT DTL Blood (Blood, Venous) 02/21/2024 11:27 AM CDT 02/21/2024 11:45 AM CDT Rubio Reyes P.A.-C. LAB BLOOD ADD-ON Performing Organization Address City/[facility] Co de Phone Number [facility] [address] [place] [address] * Thyroid Function [place] (02/21/2024 11:27 AM CDT) Pathologist [facility] TSH, Sensitive 3.2 0.3 - 4.2 mIU/L 02/21/2024 12:15 PM CDT DTL Blood (Blood, Venous) 02/21/2024 11:27 AM CDT 02/21/2024 11:45 AM CDT Rubio Reyes P.A.-C. LAB BLOOD ADD-ON Performing Organization Address [facility] Co de Phone Number [facility] [address] [place] [address] * (ABNORMAL) NT-Pro B-Type Natriuretic Peptide (BNP) (02/21/2024 11:27 AM CDT) NT-Pro BNP 405(H) <=226 pg/mL 02/21/2024 11:57 AM CDT [facility] Comment: NT-proBNP values less than 300 pg/mL have a 99% negative predictive value for excluding acute congestive heart failure. A cutoff of 1200 pg/mL for patients with an eGFR<60 yields a diagnostic sensitivity and specificity of 89% and 72% for acute congestive heart failure. A diagnostic NT-proBNP cutoff of 900 pg/mL has been suggested in adults 50-75 years of age in the absence of renal failure. Blood (Blood, Venous) 02/21/2024 11:27 AM CDT 02/21/2024 11:31 AM CDT Rubio Reyes P.A.-C. LAB BLOOD ADD-ON Performing Organization Address City/[facility] Co de Phone Number [facility] [address] [place] [address] * Prothrombin Time (PT) (02/21/2024 11:27 AM CDT) Only the most recent of3 resultswithin the time period is included. Pathologist [facility] Prothrombin Time, P 10.7 9.4 - 12.5 sec 02/21/2024 11:39 AM CDT [facility] INR 1.0 0.9 - 1.1 02/21/2024 11:39 AM CDT [facility] Comment: ----ADDITIONAL INFORMATION---- Standard intensity warfarin therapeutic range: 2.0 to 3.0 ?? High intensity warfarin therapeutic range: 2.5 to 3.5 Blood (Blood, Venous) 02/21/2024 11:27 AM CDT 02/21/2024 11:31 AM CDT Rubio Reyes P.A.-C. LAB BLOOD ADD-ON Performing Organization Address [facility] Co de Phone Number [facility] [address] [place] [address] * (ABNORMAL) CBC with Differential, Blood (02/21/2024 11:27 AM CDT) Only the most recent of8 resultswithin the time period is included. Pathologist [facility] Hemoglobin 11.3(L) 11.6 - 15.0 g/dL 02/21/2024 11:36 AM CDT [facility] Hematocrit 33.7(L) 35.5 - 44.9 % 02/21/2024 11:36 AM CDT [facility] Erythrocytes 3.68(L) 3.92 - 5.13 x10(12)/L 02/21/2024 11:36 AM CDT [facility] MCV 91.6 78.2 - 97.9 fL 02/21/2024 11:36 AM CDT [facility] RBC Distrib Width 13.2 12.2 - 16.1 % 02/21/2024 11:36 AM CDT [facility] Platelet Count 280 157 - 371 x10(9)/L 02/21/2024 11:36 AM CDT [facility] Leukocytes 15.2(H) 3.4 - 9.6 x10(9)/L 02/21/2024 11:36 AM CDT [facility] Neutrophils 13.68(H) 1.56 - 6.45 x10(9)/L 02/21/2024 11:35 AM CDT [facility] Lymphocytes 0.48(L) 0.95 - 3.07 x10(9)/L 02/21/2024 11:36 AM CDT [facility] Monocytes 0.86(H) 0.26 - 0.81 x10(9)/L 02/21/2024 11:36 AM CDT [facility] Eosinophils 0.13 0.03 - 0.48 x10(9)/L 02/21/2024 11:36 AM CDT [facility] Basophils 0.08 0.01 - 0.08 x10(9)/L 02/21/2024 11:36 AM CDT [facility] Blood (Blood, Venous) 02/21/2024 11:27 AM CDT 02/21/2024 11:31 AM CDT Rubio Reyes P.A.-C. LAB BLOOD ADD-ON [facility] [address] [place] [address], [facility] ST[facility] [address] [place] [address] [facility] [address] [place] [address] * Lipase (02/21/2024 11:27 AM CDT) [facility] Lipase, S 38 13 - 60 U/L 02/21/2024 12:15 PM CDT DTL Blood (Blood, Venous) 02/21/2024 11:27 AM CDT 02/21/2024 11:45 AM CDT Rubio Jonathan Amy Loyola LAB BLOOD ADD-ON [facility] [address] [place] [address], [facility] [address] [place] [id number] * (ABNORMAL) Basic Metabolic Panel (02/21/2024 11:27 AM CDT) Only the most recent of5 resultswithin the time period is included. Potassium, P 4.1 3.6 - 5.2 mmol/L 02/21/2024 11:49 AM CDT STMA Sodium, P 139 135 - 145 mmol/L 02/21/2024 11:49 AM CDT STMA Chloride, P 103 98 - 107 mmol/L 02/21/2024 11:49 AM CDT STMA Bicarbonate, P 25 22 - 29 mmol/L 02/21/2024 11:49 AM CDT STMA Anion Gap, P 11 7 - 15 02/21/2024 11:49 AM CDT STMA BUN (Blood Urea Nitrogen), P 18 6 - 21 mg/dL 02/21/2024 11:49 AM CDT STMA Creatinine 0.97 0.59 - 1.04 mg/dL 02/21/2024 11:49 AM CDT STMA Estimated GFR (eGFR) 68 >=60 mL/min/BSA 02/21/2024 11:49 AM CDT STMA Comment: Estimated GFR calculated using the 2020 CKD_EPI creatinine equation. Calcium, Total, P 9.7 8.6 - 10.0 mg/dL 02/21/2024 11:49 AM CDT STMA Glucose, P 157(H) 70 - 140 mg/dL 02/21/2024 11:49 AM CDT STMA Blood (Blood, Venous) 02/21/2024 11:27 AM CDT 02/21/2024 11:31 AM CDT Rubio Reyes P.A.-C. LAB BLOOD ADD-ON [facility] [address] [place] [address], [facility] [address] [place] [address] * ECG 12 Lead (02/21/2024 11:22 AM CDT) Ventricular Rate ECG/Min 82 BPM MUSE IL Interval 150 ms MUSE QRSD Interval 80 ms MUSE QT Interval 350 ms MUSE QTC Interval 408 ms MUSE P Bennet 38 degrees MUSE R Bennet 0 degrees MUSE T Wave Bennet 22 degrees MUSE 02/21/2024 11:2 2 AM CDT 02/21/2024 11:26 AM CDT Impressions MUSE - 02/21/2024 11:26 AM CDT Normal sinus rhythm Minimal voltage criteria for LVH, may be normal variant Nonspecific T wave abnormality When compared with ECG of 30-AUG-2023 08:03, No significant change was found Reviewed by CHINO Llanes Narrative Procedure Note Mesfin Fonseca M.D., Ph.D. - 02/21/2024 IMPRESSION: Normal sinus rhythm Minimal voltage criteria for LVH, may be normal variant Nonspecific T wave abnormality When compared with ECG of 30-AUG-2023 08:03, No significant change was found Reviewed by CHINO Llanes Rafita Patterson P.A.-C. ECG ORDERABLES MUSE NA * US Kidney Transplant Biopsy Left (02/08/2024 11:20 AM CDT) Anatomical Region Laterality Modality Abdomen, Ultrasound RST LOS, Ultrasound ARZ LOS, Procedure FLA LOS, Abdominal FLA LOS, Procedural, Procedural NWWI LOS Left Ultrasound Impressions 02/08/2024 11:36 AM CDT Ultrasound-guided renal allograft biopsy. NR Narrative 02/08/2024 11:36 AM CDT EXAM: US KIDNEY TRANSPLANT BIOPSY LEFT PRE-PROCEDURE: Patient seen and evaluated. Allergies, pertinent medications, and history reviewed. Discussed risks, benefits, alternatives for procedure, and obtained informed consent. Patient understands information and questions answered. Immediately prior to starting the procedure, in the presence of the assisting personnel, procedural pause was conducted to verify correct patient identity and verification of procedure to be performed, and as applicable, correct side and site, correct patient position, availability of implants, special equipment, or special requirements, and all image and specimen identification data. The roles and responsibilities of care team members, residents, and fellows were discussed. TECHNIQUE: Sterile. 1% lidocaine for local anesthesia. Location: Left lower quadrant renal allograft Target lesion size: Not applicable Needle size: 18-gauge Number of passes: 3 Complication: None. Blood loss: None. PATIENT INSTRUCTIONS: Patient may be dismissed from the radiology department when dismissal criteria met. POST-PROCEDURE DIAGNOSIS: Renal allograft Procedure Note Grant Mcallister M.D. - 02/08/2024 EXAM: US KIDNEY TRANSPLANT BIOPSY LEFT PRE-PROCEDURE: Patient seen and evaluated. Allergies, pertinentmedications, and history reviewed. Discussed risks, benefits, alternativesfor procedure, and obtained informed consent. Patient understandsinformation and questions answered. Immediately prior to starting the procedure, in the presence of the assistingpersonnel, procedural pause was conducted to verify correct patientidentity and verification of procedure to be performed, and as applicable,correct side and site, correct patient position, availability of implants, special equipment, or specialrequirements, and all image and specimen identification data. The rolesand responsibilities of care team members, residents, and fellows werediscussed. TECHNIQUE: Sterile. 1% lidocaine for local anesthesia. Location: Left lower quadrant renal allograft Target lesion size: Not applicable Needle size: 18-gauge Number of passes: 3 Complication: None. Blood loss: None. PATIENT INSTRUCTIONS: Patient may be dismissed from the radiologydepartment when dismissal criteria met. POST-PROCEDURE DIAGNOSIS: Renal allograft IMPRESSION: Ultrasound-guided renal allograft biopsy. NR Juan Grier APRN, C.N.P., M.S.N. IMG US PROCEDURES * Renal Pathology (02/08/2024 11:06 AM CDT) 02/11/2024 1:47 PM CDT DRBX Report electronically signed by Christine Juan M.D. I verify that I have examined all relevant slides/materials for the specimen(s) and rendered or confirmed the diagnosis. Seen in consultation with: ??Cheyenne Oconnell M.D., Ph.D. , Mae Tsang M.D. ??and Emely Arguelles M.D. 02/11/2024 1:47 PM CDT DRBX Gross Description Light Microscopy: Received in formalin for light microscopy: 2 piece(s) of tissue measuring 1.4 x 0.04 (cut), 2.0 x 0.04 (cut) cm. ??1 piece(s) measuring 0.3 x 0.04 cm is taken from the formalin specimen for electron microscopy. ??Submitted in total in block(s) A3. (ALB) Electron Microscopy: Refer to Light Microscopy for details on reallocation of tissue. (ALB) Immunofluorescence: Received in Shaun for immunofluorescence: 1 piece(s) of tissue measuring 1.4 x 0.04 cm. ??Submitted in total for immunofluorescence. (TQAL) 02/11/2024 1:47 PM CDT DRBX Material Received A. : 1 - Formalin 10% wet tissue 1 - Shaun wet tissue 02/11/2024 1:47 PM CDT DRBX Disclaimer This test was developed and its performance characteristics determined by [facility] in a manner consistent with CLIA requirements. This test has not been cleared or approved by the U.S. Food and Drug Administration. 02/11/2024 1:47 PM CDT DRBX Addendum ELECTRON MICROSCOPY: ??Survey sections from the 3 blocks of tissue submitted for electron microscopy examination contain a total of 7 glomeruli, none of which is globally sclerotic. ??Block A6, containing 2 glomeruli, is then ultrathin sectioned and examined. ??The glomerular basement membranes appear of normal thickness and contour. ??There is no significant mesangial matrix expansion. ??No glomerular immune-type deposits are seen. ??The capillary loops are open. ??The endothelial cells show preserved fenestration a few tubuloreticular inclusions are seen. ??There is no significant podocyte foot process effacement. ??Examination of the tubulointerstitial compartment shows no immune deposits along the tubular basement membranes. ??There is no multilayering of the basement membrane of the peritubular capillaries. ? Impression: Kidney, transplant, needle biopsy: ??Mild interstitial fibrosis and tubular atrophy with mild inflammation and focal mild lymphocytic tubulitis of partially atrophic tubules. Electron microscopy digital image review was used in the diagnostic assessment of this case. Signed by Christine Juan M.D. 02/13/2024 5:19 PM 02/13/2024 5:19 PM CDT DRBX Comment:REVISED RESULTS Interpretation FINAL DIAGNOSIS Kidney, transplant, needle biopsy: ??Mild interstitial fibrosis and tubular atrophy with mild inflammation and focal mild lymphocytic tubulitis of partially atrophic tubules. ??See comment. COMMENT The biopsy is adequate for interpretation. Immunofluorescence studies are negative, including C4d along the peritubular capillaries. ??On light microscopy, there is mild interstitial inflammation mostly localized in well-demarcated areas of cortical scarring. ??Inflammation is associated with focal mild lymphocytic tubulitis of partially atrophic and atrophic tubules. ??These findings are nonspecific and may be the result of chronic urinary tract infections (including BK, although currently negative in the tissue), urinary obstruction or chronic cellular rejection. ??Clinical correlation is recommended. ??There are no features of active antibody-mediated or [id number] rejection. MICROSCOPIC DESCRIPTION LIGHT MICROSCOPY: ??Tissue sections are stained with H&E, PAS, Igor trichrome and Mckinney methenamine silver to aid in the morphological interpretation. ??Tissue contains renal cortex and medulla. ??There are approximately 18 glomeruli, none of which is globally sclerotic. ??The glomeruli appear of normal size. ??There is no significant mesangial matrix expansion or hypercellularity. ??There is no glomerulitis. The glomerular basement membranes do not appear thickened, and no deposits or double contouring is seen. ??No crescents, fibrinoid necrosis, segmental sclerosis or thrombi is observed. ? TUBULES AND INTERSTITIUM: ??There is well-demarcated mild interstitial fibrosis and tubular atrophy involving approximately 10-15% of the cortex sampled. ??There is mild interstitial inflammation, mainly composed of mononuclear cells, mostly localized in the areas of cortical scarring. ??There is focal mild lymphocytic tubulitis of partially atrophic and atrophic tubules. ??There is no peritubular capillaritis. ??There are no definite viral cytopathic effects. ?VESSELS: ??Interlobular arteries show no intimal thickening, endothelialitis, transplant arteriopathy or thrombi. ??Arterioles are normal. Immunoperoxidase studies were performed on sections from paraffin-embedded tissue, using antibody to SV40. ??The stain is negative in the nuclei of the tubular cells. ? IMMUNOFLUORESCENT HISTOLOGY: Immunofluorescence staining for IgA, IgG, IgM, C1q, C3, albumin, fibrinogen, kappa, lambda and C4d are performed. ??Tissue contains 5 glomeruli, none of which is globally sclerosed. ??There is no significant glomerular or extra-glomerular staining with the immune reactants tested. ??Casts stain for IgA, and kappa and lambda equally. ??C4d is negative in the peritubular capillaries. ? ELECTRON MICROSCOPY: Electron microscopy will be reported in an addendum. CLINICAL INFORMATION This is a 59-year-old woman status post living unrelated donor kidney transplant in August 2023. ??This is the 3rd kidney transplant. ??The 1st transplant was in 1987, followed by a 2nd transplant in 2010 which failed from chronic active antibody-mediated rejection. 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 ??No clinical complications after the last transplant. ??Serum creatinine ranges between 0.7 -0.9 mg/dL. ??She has history of hypertension, recurrent urinary tract infections, multiple sclerosis and skin cancers. ??Urinalysis shows some bacteria. ??BK in the plasma is 116. ??No donor specific antibodies. ??This is a delayed 4-month protocol biopsy (episode of fever in December). SYNOPTIC REPORT Protocol Biopsy: ?? Yes; 4-month Adequacy ??(On LM): ? Total number of glomeruli: 18 ? Number of globally sclerotic glomeruli: 0 ? Number of arteries (with elastica): 2 ? 60% cortex ? 40% medulla [place]: ??g0, i0, t1, v0, ah0; cg0, ci1, ct1, ti0, cv0, mm0, ptc0 Additional stains/studies performed ? BK ANAMIKA/IHC: ??Yes; Negative ? Other stains: No (besides H&E, PAS, Mckinney, & Trichrome) ? Full immunofluorescence panel: Yes ? C4d (IF/IHC): Yes; C4d0 ? Electron microscopy: Yes Diagnostic Features Features of Cellular Rejection: No; i-IFTA: No; Transplant arteriopathy: No Features of Antibody Mediated Rejection: No Evidence of BK nephropathy: ??No Glomerular Disease (non-alloimmune): No Recurrent kwethluk disease: No Digital imaging was used in the diagnostic assessment of this case. 02/13/2024 5:19 PM CDT DRBX Biopsy (Kidney, Left) 02/08/2024 11:06 AM CDT Juan Grier APRN, C.N.P., M.S.N. LAB PATH RENAL ORDERABLES Performing Organization Address City/[facility] Co de Phone Number [facility] [address] DRBX [address] [facility] 200 [place] [address] * Osmolality, Urine (02/08/2024 6:58 AM CDT) Only the most recent of2 resultswithin the time period is included. Osmolality, U 319 150 - 1150 mOsm/kg 02/08/2024 7:28 AM CDT DT Urine 02/08/2024 6:58 AM CDT 02/08/2024 7:05 AM CDT Marlena Stewart APRNNChris., M.S.N. LAB URINE ORDERABLES Performing Organization Address [facility] Co de Phone Number [facility] [address] [place] [address] * pH, Random, Urine (02/08/2024 6:58 AM CDT) Only the most recent of2 resultswithin the time period is included. pH, Random, U 6.4 4.5 - 8.0 02/08/2024 7:28 AM CDT DTL Urine 02/08/2024 6:58 AM CDT 02/08/2024 7:05 AM CDT Juan Grier APRN, C.N.P., M.S.N. LAB URINE ORDERABLES [facility] [address] [place] [address], [facility] [place] [address] * (ABNORMAL) Microscopic Manual (02/08/2024 6:58 AM CDT) Only the most recent of3 resultswithin the time period is included. Microscopy Abnormal 02/08/2024 7:45 AM CDT DTL RBC <3 <3 /hpf 02/08/2024 7:45 AM CDT DTL WBC 1-3 /hpf 02/08/2024 7:45 AM CDT DTL Comment: ----REFERENCE VALUE---- <4 ??(Males) <11 (Females) Casts, Hyaline Occas /lpf 02/08/2024 7:45 AM CDT DTL Squamous Epithelial Cells, U 1-3 /hpf 02/08/2024 7:45 AM CDT DTL Bacteria Present(A) 02/08/2024 7:45 AM CDT DTL Urine 02/08/2024 6:58 AM CDT 02/08/2024 7:05 AM CDT Juan Grier APRN, C.N.P., M.S.N. LAB URINE ORDERABLES Performing Organization Address City/[facility]/ZIP Co de Phone Number [facility] [address] [place] [address], [facility] [address] [place] [address] * Renal Function Panel (02/08/2024 6:52 AM CDT) Potassium, S 3.7 3.6 - 5.2 mmol/L 02/08/2024 8:01 AM CDT DTL Sodium, S 137 135 - 145 mmol/L 02/08/2024 8:01 AM CDT DTL Chloride, S 100 98 - 107 mmol/L 02/08/2024 8:01 AM CDT DTL Bicarbonate, S 25 22 - 29 mmol/L 02/08/2024 8:01 AM CDT DTL Anion Gap 12 7 - 15 02/08/2024 8:01 AM CDT DTL BUN (Blood Urea Nitrogen), S 9 6 - 21 mg/dL 02/08/2024 8:01 AM CDT DTL Creatinine 0.87 0.59 - 1.04 mg/dL 02/08/2024 8:01 AM CDT DTL Estimated GFR (eGFR) 78 >=60 mL/min/BSA 02/08/2024 8:01 AM CDT DTL Comment: Estimated GFR calculated using the 2020 CKD_EPI creatinine equation. Calcium, Total, S 8.9 8.6 - 10.0 mg/dL 02/08/2024 8:01 AM CDT DTL Glucose, S 86 70 - 140 mg/dL 02/08/2024 8:01 AM CDT DTL Albumin, S 4.1 3.5 - 5.0 g/dL 02/08/2024 8:01 AM CDT DTL Phosphorus (Inorganic), S 3.1 2.5 - 4.5 mg/dL 02/08/2024 8:01 AM CDT DTL Blood (Blood, Venous) 02/08/2024 6:52 AM CDT 02/08/2024 7:40 AM CDT Juan Grier APRN C.N.P., M.S.N. LAB BLOOD ADD-ON [facility] [address] [place] [address], [facility] [address] [place] [address] * (ABNORMAL) Magnesium (02/08/2024 6:52 AM CDT) Only the most recent of5 resultswithin the time period is included. Magnesium, S 1.4(L) 1.7 - 2.3 mg/dL 02/08/2024 8:01 AM CDT DT Blood (Blood, Venous) 02/08/2024 6:52 AM CDT 02/08/2024 7:40 AM CDT Juan Grier APRN, C.N.P., M.S.N. LAB BLOOD ADD-ON Performing Organization Address City/[facility]/ZIP Co de Phone Number [facility] [address] [place] [address], [facility] 200 [place] [address] * Tacrolimus, Trough (02/08/2024 6:48 AM CDT) Only the most recent of6 resultswithin the time period is included. Tacrolimus, Trough 8.9 5.0-15.0 (Trough) ng/mL 02/08/2024 12:58 PM CDT [facility] Comment: ----ADDITIONAL INFORMATION---- Target steady-state trough concentrations vary depending on the type of transplant, concomitant immunosuppression, clinical/institutional protocols, and time post-transplant. Results should be interpreted in conjunction with this clinical information and any physical signs/symptoms of rejection/toxicity. Testing performed by Liquid Chromatography-Tandem Mass Spectrometry (LC-MS/MS). This test was developed and its performance characteristics determined by [facility] in a manner consistent with CLIA requirements. This test has not been cleared or approved by the U.S. Food and Drug Administration. Blood (Blood, Venous) 02/08/2024 6:48 AM CDT 02/08/2024 9:22 AM CDT Juan Grier APRN, C.N.P., M.S.N. LAB BLOOD NON ADD-ON [facility] [address] [place] [address] [facility] [address] [place] [address] [place] [address] * Iron and Total Iron-Binding Capacity (02/08/2024 6:34 AM CDT) Iron 63 35 - 145 mcg/dL 02/08/2024 10:06 AM CDT DTL Total Iron Binding Capacity 262 250 - 400 mcg/dL 02/08/2024 10:06 AM CDT DTL Percent Saturation 24 14 - 50 % 02/08/2024 10:06 AM CDT DTL Blood 02/08/2024 6:34 AM CDT 02/08/2024 9:26 AM CDT Iain Stewart APRN.N.Hannah., M.S.N. LAB BLOOD ADD-ON [facility] 200 [place] [address] * (ABNORMAL) Ferritin (02/08/2024 6:34 AM CDT) Pathologist [facility] Ferritin, S 334(H) 11 - 328 mcg/L 02/08/2024 10:06 AM CDT DT Blood (Blood, Venous) 02/08/2024 6:34 AM CDT 02/08/2024 9:26 AM CDT Iain Stewart APRN.N.P., M.S.N. LAB BLOOD ADD-ON [facility] [address] [place] [address] * Hemoglobin A1c (01/28/2024 7:34 AM MATRIX BATH ATTENDANT) Only the most recent of2 resultswithin the time period is included. Pathologist [facility] Hemoglobin A1c, B 5.1 4.2 - 5.6 % 01/28/2024 7:54 AM MATRIX BATH ATTENDANT CNFL Blood (Blood, Venous) 01/28/2024 7:34 AM MATRIX BATH ATTENDANT 01/28/2024 7:36 AM MATRIX BATH ATTENDANT Kaushal Cuenca M.D. LAB BLOOD ADD-ON Performing Organization Address City/[facility]/ZIP Co de Phone Number [facility] [address] [place] [address], [facility] CNFL [facility] in [address] [address] * Phosphorus Inorganic (01/18/2024 8:13 AM MATRIX BATH ATTENDANT) Only the most recent of4 resultswithin the time period is included. Pathologist [facility] Phosphorus (Inorganic), S 3.3 2.5 - 4.5 mg/dL 01/18/2024 9:33 AM MATRIX BATH ATTENDANT DT Blood (Blood, Venous) 01/18/2024 8:13 AM MATRIX BATH ATTENDANT 01/18/2024 9:10 AM MATRIX BATH ATTENDANT Juan Grier APRN, C.N.P., M.S.N. LAB BLOOD ADD-ON Performing Organization Address [facility] Co de Phone Number [address] [address], [place] [address] [address] * Bacteria / Phoebe Culture, Blood (01/15/2024 10:28 AM MATRIX BATH ATTENDANT) Only the most recent of4 resultswithin the time period is included. Bacteria/Krista da Culture, Blood No growth after 5 day/s of incubation. 01/20/2024 11:02 AM MATRIX BATH ATTENDANT CNFL Blood, Peripheral Draw 01/15/2024 10:28 AM MATRIX BATH ATTENDANT 01/15/2024 10:28 AM MATRIX BATH ATTENDANT Aldo Collier APRN, C.N.P., D.N.P. LAB MICROBIOLOGY - GENERAL ORDERABLES [facility] [address] [place] [address], [facility] CNFL [address] [address] * (ABNORMAL) Urinalysis with Microscopic if Indicated (01/15/2024 9:55 AM MATRIX BATH ATTENDANT) Source Midstream 01/15/2024 10:57 AM MATRIX BATH ATTENDANT CNFL Clarity Clear Clear 01/15/2024 10:04 AM MATRIX BATH ATTENDANT CNFL Color Yellow 01/15/2024 10:04 AM MATRIX BATH ATTENDANT CNFL Comment: ----REFERENCE VALUE---- Colorless Yellow Danielle Blood Negative Negative 01/15/2024 10:04 AM MATRIX BATH ATTENDANT CNFL Nitrite Negative Negative 01/15/2024 10:04 AM MATRIX BATH ATTENDANT CNFL Leukocyte Esterase Negative Negative 01/15/2024 10:04 AM MATRIX BATH ATTENDANT CNFL Protein 30(A) mg/dL 01/15/2024 10:04 AM MATRIX BATH ATTENDANT CNFL Comment: ----REFERENCE VALUE---- Negative Trace Glucose 100(A) Negative mg/dL 01/15/2024 10:04 AM MATRIX BATH ATTENDANT CNFL Ketones, QI(U) Trace(A) Negative mg/dL 01/15/2024 10:04 AM MATRIX BATH ATTENDANT CNFL Bilirubin Small(A) Negative 01/15/2024 10:04 AM MATRIX BATH ATTENDANT CNFL pH 5.5 5.0 - 8.0 01/15/2024 10:04 AM MATRIX BATH ATTENDANT CNFL Specific [place] 1.020 1.001 - 1.035 01/15/2024 10:04 AM MATRIX BATH ATTENDANT CNFL Urobilinogen 0.2 0.2 - 1.0 mg/dL 01/15/2024 10:04 AM MATRIX BATH ATTENDANT CNFL Urine 01/15/2024 9:55 AM MATRIX BATH ATTENDANT 01/15/2024 10:01 AM MATRIX BATH ATTENDANT Aldo Collier APRN, C.N.P., D.N.P. LAB URINE ORDERABLES [facility] [address] [place] [address], [facility] CNFL [facility] in [address] [address] * (ABNORMAL) Blood Gas, Venous, POCT, Blood (01/15/2024 9:55 AM MATRIX BATH ATTENDANT) pH, Venous, POCT, B 7.38 7.32 - 7.43 01/15/2024 10:44 AM MATRIX BATH ATTENDANT CNFL pCO2, Venous, POCT, B 29(L) 41 - 51 mm Hg 01/15/2024 10:44 AM MATRIX BATH ATTENDANT CNFL pO2, Venous, POCT, B 57 Not applicable mm Hg 01/15/2024 10:44 AM MATRIX BATH ATTENDANT CNFL HCO3, Venous, POCT, B 17 Not applicable mmol/L 01/15/2024 10:44 AM MATRIX BATH ATTENDANT CNFL Base Excess, Venous, POCT, B -8 Not applicable mmol/L 01/15/2024 10:44 AM MATRIX BATH ATTENDANT CNFL O2 Saturation, Venous, POCT, B 89 Not applicable % 01/15/2024 10:44 AM MATRIX BATH ATTENDANT CNFL Sample Type, Blood Gas, POCT CATA 01/15/2024 10:44 AM MATRIX BATH ATTENDANT CNFL Blood 01/15/2024 9:55 AM MATRIX BATH ATTENDANT 01/15/2024 10:01 AM MATRIX BATH ATTENDANT Iain Schuster APRN.N.P., D.N.P. LAB POCT ORDERABLES - DEVICE [facility] [address] [place] [address], [facility] in [address] [address] * (ABNORMAL) CRP (C-Reactive Protein) (01/15/2024 9:55 AM MATRIX BATH ATTENDANT) C-Reactive Protein (CRP), P 69.3(H) <5.0 mg/L 01/15/2024 10:25 AM MATRIX BATH ATTENDANT CNFL Blood 01/15/2024 9:55 AM MATRIX BATH ATTENDANT 01/15/2024 10:01 AM MATRIX BATH ATTENDANT Iain Schuster APRN.N.P., D.N.P. LAB BLOOD ADD-ON [facility] [address] [place] [address], [facility] CNFL [facility] [place] [address] * Lactate (01/15/2024 9:55 AM MATRIX BATH ATTENDANT) Lactate, P 2.0 0.5 - 2.2 mmol/L 01/15/2024 10:18 AM MATRIX BATH ATTENDANT CNFL Blood 01/15/2024 9:55 AM MATRIX BATH ATTENDANT 01/15/2024 10:01 AM MATRIX BATH ATTENDANT Iain Schuster APRN.N.P., D.N.P. LAB BLOOD NON ADD-ON Performing Organization Address [facility]/ZIP Co de Phone Number [facility] [address] [place] [address], [facility] CNFL [facility] [place] [address] * (ABNORMAL) Comprehensive Metabolic Panel (01/15/2024 9:55 AM MATRIX BATH ATTENDANT) Only the most recent of2 resultswithin the time period is included. Potassium, P 4.1 3.6 - 5.2 mmol/L 01/15/2024 10:25 AM MATRIX BATH ATTENDANT CNFL Sodium, P 133(L) 135 - 145 mmol/L 01/15/2024 10:25 AM MATRIX BATH ATTENDANT CNFL Chloride, P 102 98 - 107 mmol/L 01/15/2024 10:25 AM MATRIX BATH ATTENDANT CNFL Bicarbonate, P 22 22 - 29 mmol/L 01/15/2024 10:25 AM MATRIX BATH ATTENDANT CNFL Anion Gap, P 9 7 - 15 01/15/2024 10:25 AM MATRIX BATH ATTENDANT CNFL BUN (Blood Urea Nitrogen), P 15 6 - 21 mg/dL 01/15/2024 10:25 AM MATRIX BATH ATTENDANT CNFL Creatinine 1.08(H) 0.59 - 1.04 mg/dL 01/15/2024 10:25 AM MATRIX BATH ATTENDANT CNFL Estimated GFR (eGFR) 60 >=60 mL/min/BS A 01/15/2024 10:25 AM MATRIX BATH ATTENDANT CNFL Comment: Estimated GFR calculated using the 2020 CKD_EPI creatinine equation. Calcium, Total, P 8.6 8.6 - 10.0 mg/dL 01/15/2024 10:25 AM MATRIX BATH ATTENDANT CNFL Glucose, P 190(H) 70 - 140 mg/dL 01/15/2024 10:25 AM MATRIX BATH ATTENDANT CNFL Protein, Total, P 6.4 6.3 - 7.9 g/dL 01/15/2024 10:25 AM MATRIX BATH ATTENDANT CNFL Albumin, P 3.6 3.5 - 5.0 g/dL 01/15/2024 10:25 AM MATRIX BATH ATTENDANT CNFL Aspartate Aminotransferase (AST), P 19 8 - 43 U/L 01/15/2024 10:25 AM MATRIX BATH ATTENDANT CNFL Alkaline Phosphatase, P 62 35 - 104 U/L 01/15/2024 10:25 AM MATRIX BATH ATTENDANT CNFL Alanine Aminotransferase (ALT), P 15 7 - 45 U/L 01/15/2024 10:25 AM MATRIX BATH ATTENDANT CNFL Bilirubin, Total, P 0.6 0.0 - 1.2 mg/dL 01/15/2024 10:25 AM MATRIX BATH ATTENDANT CNFL Blood 01/15/2024 9:55 AM MATRIX BATH ATTENDANT 01/15/2024 10:01 AM MATRIX BATH ATTENDANT Aldo Collier APRN, C.N.P., D.N.P. LAB BLOOD ADD-ON [facility] [address] [place] [id number], [facility] CNFL [facility] in [address] [address] * Respiratory Panel, PCR, Nasopharyngeal (01/14/2024 11:25 AM MATRIX BATH ATTENDANT) Specimen Source NASOPHARYNGEAL SWAB 01/14/2024 2:12 PM MATRIX BATH ATTENDANT DTL Adenovirus Undetected Undetected 01/14/2024 2:12 PM MATRIX BATH ATTENDANT DTL Coronavirus 229E Undetected Undetected 01/14/20 24 2:12 PM MATRIX BATH ATTENDANT DTL Coronavirus HKU1 Undetected Undetected 01/14/20 2:12 PM MATRIX BATH ATTENDANT DTL Coronavirus NL63 Undetected Undetected 01/14/20 24 2:12 PM MATRIX BATH ATTENDANT DTL Coronavirus OC43 Undetected Undetected 01/14/20 2:12 PM MATRIX BATH ATTENDANT DTL SARS Coronavirus-2 Undetected Undetected 01/14/2024 2:12 PM MATRIX BATH ATTENDANT DTL Comment: SARS-CoV-2 RNA absent. This result does not rule out COVID-19 in the patient, as the sensitivity of the test depends on the timing of the specimen collection and the quality of the specimen. Result should be correlated with patient's history and clinical presentation. Human Metapneumovirus Undetected Undetected 01/14/2024 2:12 PM MATRIX BATH ATTENDANT DTL Human Rhinovirus/ Enterovirus Undetected Undetected 01/14/2024 2:12 PM MATRIX BATH ATTENDANT DTL Influenza A Undetected Undetected 01/14/2024 2:12 PM MATRIX BATH ATTENDANT DTL Influenza B Undetected Undetected 01/14/2024 2:12 PM MATRIX BATH ATTENDANT DTL Parainfluenza Virus 1 Undetected Undetected 01/14/2024 2:12 PM MATRIX BATH ATTENDANT DTL Parainfluenza Virus 2 Undetected Undetected 01/14/2024 2:12 PM MATRIX BATH ATTENDANT DTL Parainfluenza Virus 3 Undetected Undetected 01/14/2024 2:12 PM MATRIX BATH ATTENDANT DTL Parainfluenza Virus 4 Undetected Undetected 01/14/2024 2:12 PM MATRIX BATH ATTENDANT DTL Respiratory Syncytial Virus Undetected Undetected 01/14/2024 2:12 PM MATRIX BATH ATTENDANT DTL Bordetella parapertussis Undetected Undetected 01/14/2024 2:12 PM MATRIX BATH ATTENDANT DTL Bordetella pertussis Undetected Undetected 01/14/2024 2:12 PM MATRIX BATH ATTENDANT DTL Chlamydia pneumoniae Undetected Undetected 01/14/2024 2:12 PM MATRIX BATH ATTENDANT DTL Mycoplasma pneumoniae Undetected Undetected 01/14/2024 2:12 PM MATRIX BATH ATTENDANT DTL Interpretation This assay is not predicted to detect SARS-coronavirus (CoV), or MERS-CoV. If SARS-CoV or MERS-CoV is suspected, coordinate testing through a local public health laboratory. 01/14/2024 2:12 PM MATRIX BATH ATTENDANT DTL Comment: ----ADDITIONAL INFORMATION---- This assay is performed using the FDA-Cleared FilmArray Respiratory Panel 2.1 ([employer]). This assay is performed using the FilmArray Respiratory Panel 2.1 ([employer]). For testing performed at [facility] in [place], [place], performance characteristics for samples submitted in phosphate buffered saline were determined by [facility] in a manner consistent with CLIA requirements. Swab (Nasopharynx) 01/14/2024 11:25 AM MATRIX BATH ATTENDANT 01/14/2024 11:25 AM MATRIX BATH ATTENDANT Juan Grier APRN, C.N.P., M.S.N. LAB MICROBIOLOGY - GENERAL ORDERABLES Performing Organization Address [facility] de Phone Number [facility] [address] [address] * Group A Streptococcus PCR, Throat (01/14/2024 11:24 AM MATRIX BATH ATTENDANT) Pathologist [facility] Group A Streptococcus PCR, Throat Negative Negative 01/14/2024 2:54 PM MATRIX BATH ATTENDANT [facility] Swab (Throat) 01/14/2024 11: 24 AM MATRIX BATH ATTENDANT 01/14/2024 11:24 AM MATRIX BATH ATTENDANT Juan Grier APRN, C.N.P., M.S.N. LAB MICROBIOLOGY - GENERAL ORDERABLES Performing Organization Address [facility] de Phone Number [facility] [address] [place], [place] [address] [place] [id number] * (ABNORMAL) BKV DNA Detection / Quantitative, Urine (01/14/2024 8:54 AM MATRIX BATH ATTENDANT) Pathologist [facility] BKV DNA Detect/Quant, U [id number] (A) Undetected IU/mL 01/14/2024 7:30 PM MATRIX BATH ATTENDANT [facility] Comment: Result in log IU/mL is 7.11. ----ADDITIONAL INFORMATION---- The quantification range of this assay is 200 to 100,000,000 IU/mL (2.30 log to 8.00 log IU/mL). Testing was performed using the chari BKV test ([employer] Urine (Urine, Voided) 01/14/2024 8:54 AM MATRIX BATH ATTENDANT 01/14/2024 10:20 AM MATRIX BATH ATTENDANT Kimmy Branham M.D. LAB MICROBIOLOGY - GENERAL ORDERABLES [facility] [address] [place] [address] [facility] [address] [place] [address] [place] [address] * Pancreas/Kidney Storage, Urine (01/14/2024 8:19 AM MATRIX BATH ATTENDANT) Lake/Kid Storage, U Collected DEFAULT 01/14/2024 8:19 AM MATRIX BATH ATTENDANT HSS Urine (Urine, Midstream) 01/14/2024 8:19 AM MATRIX BATH ATTENDANT 01/14/2024 8:19 AM MATRIX BATH ATTENDANT Kimmy Branham M.D. LAB URINE ORDERABL ES Performing Organization Address City/[facility] Co de Phone Number [facility] [address] [place], [place] [address] HSS [facility] [address] [place] [address] * (ABNORMAL) Gram Stain, Urine (01/14/2024 8:19 AM MATRIX BATH ATTENDANT) Source Urine, Urine, Midstream 01/14/2024 8:56 AM MATRIX BATH ATTENDANT DTL Gram Stain, U Positive(A) Negative 01/14/2024 9:38 AM MATRIX BATH ATTENDANT DTL Comment: Many Gram-positive bacilli Bacteria on epithelial cells Urine (Urine, Midstream) 01/14/2024 8:19 AM MATRIX BATH ATTENDANT 01/14/2024 8:56 AM MATRIX BATH ATTENDANT Kimmy Branham M.D. LAB URINE ORDERABL ES Performing Organization Address City/[facility]/ZIP Co de Phone Number [facility] [address] [place] [address], [facility] DTL [facility] [address] [place] [address] * HLA Class I/II Combined cPRA, Serum (01/14/2024 8:15 AM MATRIX BATH ATTENDANT) Class I/II Combined cPRA 60.29 Not Applicable 01/16/2024 10:38 AM MATRIX BATH ATTENDANT DBB8 Comment: ----ADDITIONAL INFORMATION---- Calculated PRA (cPRA) is the percentage of donors expected to have HLA antigens listed as unacceptable for a candidate on the waiting list. Unacceptable antigens include serologic equivalents that have a normalized Mean Fluorescence Intensity (MFI) >= 2000 and antigens that demonstrate Prozone Phenomenon. The cPRA is calculated based on the HLA frequencies published by UNOS/OPTN listed here: http://optn.transplant.hrsa.gov CLIA: [id number] ??CLIA Boat Laborer: LUCIEN TOMLINSON MD,PhD Combined cPRA Specificities see below 01/16/2024 10:38 AM MATRIX BATH ATTENDANT DBB8 Comment: DQ:2 DQA:03 Blood 01/14/2024 8:15 AM MATRIX BATH ATTENDANT 01/14/2024 10:02 AM MATRIX BATH ATTENDANT Kimmy Branham M.D. LAB HLA ORDERABLES [facility] [address] [place] [address], [facility] DBB8 [facility] [address] [place] [address] * (ABNORMAL) Lipid Panel (01/14/2024 8:15 AM MATRIX BATH ATTENDANT) Triglycerides 297(H) mg/dL 01/14/2024 9:30 AM MATRIX BATH ATTENDANT DTL Comment: ----REFERENCE VALUE---- Normal: <150 mg/dL Borderline High: 150-199 mg/dL High: 200-499 mg/dL Very High: > or =500 mg/dL Cholesterol, Total 144 mg/dL 2023 9:30 AM MATRIX BATH ATTENDANT DTL Comment: ----REFERENCE VALUE---- Desirable: < 200 mg/dL Borderline High: 200 - 239 mg/dL High: > or = 240 mg/dL Cholesterol, LDL, Calculated 55 mg/dL 01/14/2024 10:13 AM MATRIX BATH ATTENDANT DTL Comment: ----REFERENCE VALUE---- Desirable: <100 mg/dL Above Desirable: 100-129 mg/dL Borderline High: 130-159 mg/dL High: 160-189 mg/dL Very High: >=190 mg/dL ----ADDITIONAL INFORMATION---- LDL cholesterol calculated using the Matias/NIH equation. Cholesterol, HDL, S 43(L) >=50 mg/dL 01/14/2024 10:13 AM MATRIX BATH ATTENDANT DTL Cholesterol, Non-HDL, Calculated 101 mg/dL 01/14/2024 10:13 AM MATRIX BATH ATTENDANT DTL Comment: ----REFERENCE VALUE---- Desirable: <130 mg/dL Above Desirable: 130-159 mg/dL Borderline High: 160-189 mg/dL High: 190-219 mg/dL Very High: > or =220 mg/dL Fasting (8 HR or more) Yes 01/14/2024 9:02 AM MATRIX BATH ATTENDANT DTL Blood (Blood, Venous) 01/14/2024 8:15 AM MATRIX BATH ATTENDANT 01/14/2024 9:02 AM MATRIX BATH ATTENDANT Kimmy Branham M.D. LAB BLOOD ADD-ON [facility] [address] [place] [address], [facility] [address] [place] [address] * Lake/Kid 5cc Storage, Blood (01/14/2024 8:15 AM MATRIX BATH ATTENDANT) Storage, Red Collected DEFAULT 01/14/2024 8:15 AM MATRIX BATH ATTENDANT HSS Storage, ACD Collected DEFAULT 01/14/2024 8:15 AM MATRIX BATH ATTENDANT HSS Blood (Blood, Venous) 01/14/2024 8:15 AM MATRIX BATH ATTENDANT 01/14/2024 8:15 AM MATRIX BATH ATTENDANT Narrative [facility] - 01/14/2024 8:15 AM MATRIX BATH ATTENDANT Specimen Information: Specimen ID: [id number] Specimen Type: Blood Specimen Collection Start Date: 01/14/2024 ??8:15 AM Specimen Received Date: 01/14/2024 ??8:15 AM Specimen ID: [id number] Specimen Collection Start Date: 01/14/2024 ??8:15 AM Specimen Received Date: 01/14/2024 ??8:15 AM Kimmy Branham M.D. LAB BLOOD ADD-ON Performing Organization Address City/[facility]/ZIP Co de Phone Number [facility] [address] [place] [address], [facility] [address] [place] [address] * Mycophenolic Acid (01/14/2024 8:15 AM MATRIX BATH ATTENDANT) Only the most recent of4 resultswithin the time period is included. Mycophenolic Acid 2.4 1.0 - 3.5 mcg/mL 01/14/2024 5:22 PM MATRIX BATH ATTENDANT SDSC MPA Glucuronide 38 35 - 100 mcg/mL 01/14/2024 5:22 PM MATRIX BATH ATTENDANT SDSC Comment: ----ADDITIONAL INFORMATION---- Target steady-state trough concentrations vary depending on the type of transplant, concomitant immunosuppression, clinical/institutional protocols, and time post-transplant. Results should be interpreted in conjunction with this clinical information and any physical signs/symptoms of rejection/toxicity. Testing performed by Liquid Chromatography-Tandem Mass Spectrometry (LC-MS/MS). This test was developed and its performance characteristics determined by [facility] in a manner consistent with CLIA requirements. This test has not been cleared or approved by the U.S. Food and Drug Administration. Blood (Blood, Venous) 01/14/2024 8:15 AM MATRIX BATH ATTENDANT 01/14/2024 1:22 PM MATRIX BATH ATTENDANT Kimmy Branhma M.D. LAB BLOOD NON ADD- ON [facility] [place] [address] [place] [address] [facility] [address] [place] [address] [place] [address] * HLA Class II SAB Antibody Screen (01/14/2024 8:15 AM MATRIX BATH ATTENDANT) Class II SAB Overall Result Positive Not Applicable 01/16/2024 6:00 AM MATRIX BATH ATTENDANT DBB8 Class II SAB Comment No DSA obsvd. 01/16/2024 6:00 AM MATRIX BATH ATTENDANT DBB8 Class II SAB >=5000 MFI NONE 01/16/2024 6:00 AM MATRIX BATH ATTENDANT DBB8 Class II SAB 7316-6416 MFI see below 01/16/2024 6:00 AM MATRIX BATH ATTENDANT DBB8 Comment: DQ:2 DQA:03 Class II SAB -1998 MFI see below 01/16/2024 6:00 AM MATRIX BATH ATTENDANT DBB8 Comment: DRw:53 DQ:8 7 DP:1 SAB DRB1 Specificity NONE 01/16/2024 6:00 AM MATRIX BATH ATTENDANT DBB8 SAB [id number] Specificity see below 01/16/2024 6:00 AM MATRIX BATH ATTENDANT DBB8 Comment: 53(01:03)[815], 53(01:01)[670] Format: Serologic Eq.(AUT054 Mol. Allele)[Normalized MFI] NOTE: ??Data is displayed in descending order by Mean Fluorescence Intensity (MFI). ??Serologic equivalents can be displayed multiple times for different molecular alleles. SAB DQB1 Specificity see below 01/16/2024 6:00 AM MATRIX BATH ATTENDANT DBB8 Comment: 2(A*05:01;B*02:01)[4571], 2(A*03:01;B*02:01)[4301], 9(A*03:01;B*03:03)[2803], 2(A*04:01;B*02:01)[2728], 2(A*02:01;B*02:01)[2355], 2(A*02:01;B*02:02)[2167], 8(A*03:03;B*03:02)[2145], 4(A*03:03;B*04:01)[2084], 8(A*03:01;B*03:02)[1818], 9(A*03:02;B*03:03)[1745], 7(A*03:01;B*03:01)[1624] Format: Serologic Eq.(DQA1;DQB1 Mol. Allele)[Normalized MFI] NOTE: ??Data is displayed in descending order by Mean Fluorescence Intensity (MFI). ??Serologic equivalents can be displayed multiple times for different molecular alleles. SAB DPB1 Specificity see below 01/16/2024 6:00 AM MATRIX BATH ATTENDANT DBB8 Comment: 1(A*02:01;B*01:01)[999] Format: Serologic Eq.(DPA1;DPB1 Mol. Allele)[Normalized MFI] NOTE: ??Data is displayed in descending order by Mean Fluorescence Intensity (MFI). ??Serologic equivalents can be displayed multiple times for different molecular alleles. ----ADDITIONAL INFORMATION---- Method: Luminex Flow Cytometry CLIA: [id number] ??CLIA Boat Laborer: LUCIEN TOMLINSON MD,PhD Blood (Blood, Venous) 01/14/2024 8:15 AM MATRIX BATH ATTENDANT 01/14/2024 10:02 AM MATRIX BATH ATTENDANT Kimmy BARONE HLA ORDERABLES [facility] [address] [place] [address], [facility] DBB8 [facility] [address] [place] [address] * HLA Class I SAB Antibody Screen (01/14/2024 8:15 AM MATRIX BATH ATTENDANT) [facility] Signature Class I SAB Overall Result Negative Not Applicable 01/16/2024 5:39 AM MATRIX BATH ATTENDANT DBB8 Class I SAB Comment No DSA obsvd. 01/16/2024 5:39 AM MATRIX BATH ATTENDANT DBB8 Class I SAB >=5000 MFI NONE 01/16/2024 5:39 AM MATRIX BATH ATTENDANT DBB8 Class I SAB 2288-3930 MFI NONE 01/16/2024 5:39 AM MATRIX BATH ATTENDANT DBB8 Class I SAB 500-1999 MFI NONE 01/16/2024 5:39 AM MATRIX BATH ATTENDANT DBB8 SAB A Specificity NONE 01/16/2024 5:39 AM MATRIX BATH ATTENDANT DBB8 SAB B Specificity NONE 01/16/2024 5:39 AM MATRIX BATH ATTENDANT DBB8 SAB C Specificity NONE 01/16/2024 5:39 AM MATRIX BATH ATTENDANT DBB8 Comment: ----ADDITIONAL INFORMATION---- Method: Luminex Flow Cytometry CLIA: [id number] ??CLIA Boat Laborer: LUCIEN TOMLINSON MD,PhD Blood (Blood, Venous) 01/14/2024 8:15 AM MATRIX BATH ATTENDANT 01/14/2024 10:02 AM MATRIX BATH ATTENDANT Kimmy Branham M.D. LAB HLA ORDERABLES Performing Organization Address [facility] Co de Phone Number [facility] [address] [place] [address], [facility] DBB8 [facility] [address] [place] [address] * 25-Hydroxyvitamin D2 and D3 (01/14/2024 8:15 AM MATRIX BATH ATTENDANT) 25-Hydroxy D2 <4.0 ng/mL 01/15/2024 10:34 PM MATRIX BATH ATTENDANT SDSC 25-Hydroxy D3 35 ng/mL 01/15/2024 10:34 PM MATRIX BATH ATTENDANT SDSC 25-Hydroxy D Total 35 ng/mL 2023 10:34 PM MATRIX BATH ATTENDANT SDSC Comment: ----REFERENCE VALUE---- 25-HYDROXY D TOTAL (D2+D3) Optimum levels in the healthy population are 20-50, patients with bone disease may benefit from higher levels within this range. ----ADDITIONAL INFORMATION---- This test was developed and its performance characteristics determined by [facility] in a manner consistent with CLIA requirements. This test has not been cleared or approved by the U.S. Food and Drug Administration. Blood (Blood, Venous) 01/14/2024 8:15 AM MATRIX BATH ATTENDANT 01/14/2024 1:50 PM MATRIX BATH ATTENDANT Kimmy Branham M.D. LAB BLOOD ADD-ON Performing Organization Address [facility] Co de Phone Number [facility] [address] [place] [address] [facility] [address] [place] [address] [place] [address] * (ABNORMAL) Troponin T, 5th Generation (01/14/2024 8:15 AM MATRIX BATH ATTENDANT) Troponin T, 5th gen 12(H) <=10 ng/L 01/14/2024 9:26 AM MATRIX BATH ATTENDANT DTL Blood (Blood, Venous) 01/14/2024 8:15 AM MATRIX BATH ATTENDANT 01/14/2024 9:02 AM MATRIX BATH ATTENDANT Kimmy Branham M.D. LAB BLOOD ADD-ON Performing Organization Address City/[facility]/ZIP Co de Phone Number [facility] [address] [place] [address], [facility] [address] [place] [address] * APTT (Activated Partial Thromboplastin Time) (01/14/2024 8:14 AM MATRIX BATH ATTENDANT) Activated Partial Thrombopl Time, P 29 25 - 37 sec 01/14/2024 9:04 AM MATRIX BATH ATTENDANT DTL Blood (Blood, Venous) 01/14/2024 8:14 AM MATRIX BATH ATTENDANT 01/14/2024 8:29 AM MATRIX BATH ATTENDANT Kimmy Branham M.D. LAB BLOOD ADD-ON Performing Organization Address City/[facility] Co de Phone Number [facility] [address] [place] [address], [facility] [address] [place] [address] * Glucose, Fasting (12/31/2023 7:48 AM MATRIX BATH ATTENDANT) Glucose, P 86 70 - 100 mg/dL 12/31/2023 8:04 AM MATRIX BATH ATTENDANT CNFL Last Intake 14 hr 12/31/2023 7:49 AM MATRIX BATH ATTENDANT CNFL Blood (Blood, Venous) 12/31/2023 7:48 AM MATRIX BATH ATTENDANT 12/31/2023 7:49 AM MATRIX BATH ATTENDANT Sylvia Wood M.D. LAB BLOOD NON ADD-ON [facility] [address] [place] [address], [place] CNFL [facility] in [address] [address] * Albumin, Random, Urine (12/03/2023 8:54 AM MATRIX BATH ATTENDANT) Microalbumin 14.4 mg/L 12/03/2023 9:07 AM MATRIX BATH ATTENDANT CNFL Creatinine 104 mg/dL 12/03/2023 9:07 AM MATRIX BATH ATTENDANT CNFL Albumin/Creatinin e Ratio 14 <25 mg/g 12/03/2023 9:07 AM MATRIX BATH ATTENDANT CNFL Urine (Urine, Voided) 12/03/2023 8:54 AM MATRIX BATH ATTENDANT 12/03/2023 8:54 AM MATRIX BATH ATTENDANT Kimmy Branham M.D. LAB URINE ORDERABL ES [facility] [address] [place] [address], [facility] CNFL [facility] in [address] [address] * HIV-1/-2 Ag and Ab Screen, Plasma (08/30/2023 2:49 PM CDT) HIV-1/-2 Ag and Ab Screen, P Negative Negative 08/30/2023 9:10 PM CDT [facility] Comment: Negative result does not rule out HIV infection. If exposure to HIV infection occurred <14 days ago, contact the laboratory to request addition of HIV-1/HIV-2 RNA detection, Plasma (HIP12). Blood (Blood, Venous) 08/30/2023 2:49 PM CDT 08/30/2023 6:00 PM CDT Cierra Bloom M.D. LAB MICROBIOLOGY - BLOOD ORDERABLES [facility] [address] [place] [address] [facility] [address] [place] [address] * HCV Ab Scrn w/Reflex to HCV PCR, Serum (08/30/2023 2:49 PM CDT) HCV Ab Screen, S Negative Negative 08/30/2023 11:01 PM CDT [facility] Comment:Cyvxgi-nv-ixxqne rat io is <1.00. Blood (Blood, Venous) 08/30/2023 2:49 PM CDT 08/30/2023 6:00 PM CDT Cierra Bloom M.D. LAB MICROBIOLOGY - BLOOD ORDERABLES Performing Organization Address City/[facility] Co de Phone Number [facility] [address] [place] [address] [facility] [address] [place] [address] * Mammo Digital Screen Efren W CAD 3D(Bilateral)-Outside Mammogram (10/04/2022 8:20 AM MATRIX BATH ATTENDANT) Narrative [facility] - 02/19/2023 4:28 PM CDT This order has been created and auto-finalized to support the import of outside images. If available, original interpretation can be found on the Media Tab in Chart Review, in Document Viewer, or as an image in QREADS. If a re-interpretation or overread is required please follow defined workflow. ?? Provider Not In System IMG BI PROCEDURES Performing Organization Address [facility] Co de Phone Number [facility] NA * Optical Coherence Tomography (OCT)-Ophthalmology Image Exam (11/01/2021 2:35 PM MATRIX BATH ATTENDANT) 11/01/2021 2:33 PM MATRIX BATH ATTENDANT Narrative [facility] - 11/01/2021 2:53 PM MATRIX BATH ATTENDANT This order has been created and auto-finalized to support the import of images acquired without order. The clinical documentation to support these images can be found on the encounter that produced images. Provider Not In System IMG NON RAD IMAGI NG PROCEDURES Performing Organization Address City/[facility] Co de Phone Number [facility] NA from Last 3 Months or Most Recently Relevant to Health Maintenance Additional Health Concerns Infection Onset Date Last Indicated Protective Environment 03/08/2023 3 Advance Directives For more information, please contact: [phone] * Full Code (Latest Code Status on File) Date Activated Date Inactivated Comments 08/30/2023 10:33 PM 09/02/2023 6:26 PM Question Answer Comments Full Code: Discussed * Full Code Date Activated Date Inactivated Comments 08/30/2023 1:04 PM 08/30/2023 10:33 PM Question Answer Comments Full Code: Discussed Care Teams Completions Engineer Relationship Specialty Start Date End Date Elsewhere, Pcp PCP - General Land Sales Agent 11/24/[address] [address] Laboratory Medicine 09/18/20
--- OUTSIDE RECORDS SUMMARY | 2024-03-12 05:54 | XMS_ITS | Encounter Summary ---
Author Name Unknown Organization [facility] Address [address] [place] [address] Care Team Providers Care Paint Laboratory Technician Name Role Phone Elsewhere, Pcp Primary Care Provider Unavailabl e Reason for Visit * Reason Comments Med Refill Encounter Details Date Type Department Care Team (Late st Contact Info) Description 03/10/2024 Refill Joon [facility] in [place], [place] [address] [place] [phone] Ayanna James, CarmenN., C.C.T.C. [address] [place] [phone] Med Refill Social History Tobacco Use Types Packs/Day Years [...] often do you attend chur ch or latter day services? 1 to 4 times per year 02/13/2023 Do you belong to any clubs o r organizations such as adventism groups, unions, fraternal or athletic groups, or [...] Answer Date Recorded PHQ-2 Score 0 09/10/2023 [facility] Questionnaire Answer [...] money to buy more. Never true 02/14/20 Within the past 12 months, t he [...] No 02/13/2023 Housing Stability Vital Sign Answer Viktor e Recorded In the last 12 months, [...] Sex Assigned at Female 11/13/2018 9:36 AM EMPLOYMENT DIRECTOR Gender Identity Female 11/13/2018 9:36 AM EMPLOYMENT DIRECTOR Sexual Orientation Straight 11/13/2018 9: 36 AM EMPLOYMENT DIRECTOR documented as of this encounter Plan of Treatment Upcoming Encounters Date Type Department Care Team (Latest Contact Info) Description 03/17/2024 7:20 AM CDT Appointment Department of Laboratory Medicine in [address] [phone] Angelica Hutchins M.D. [address] [place] [phone] 03/24/2024 7:10 AM CDT Appointment Department of Laboratory Medicine in [address] [phone] Juan Grier, STUART, C.N.P., M.S.N. [address] [place] [phone] 03/24/2024 7:20 AM CDT Appointment Department of Laboratory Medicine in [address] [phone] Angelica Hutchins M.D. [address] [place] [phone] 04/07/2024 8:20 AM CDT Appointment Department of Laboratory Medicine in [address] [phone] Angelica Hutchins M.D. [address] [place] [phone] 04/14/2024 8:00 AM CDT Appointment Department of Laboratory Medicine in [address] [phone] Angelica Hutchins M.D. [address] [place] [phone] 04/15/2024 2:00 PM CDT Clinical Communication Virtual Review in [place], [place] 200 [place] [address] 04/17/2024 11:00 AM CDT Office Visit Department of Neurology in [place], [place] [address] [place] [phone] Wang Bass M.D. [address] [place] [phone] 04/22/2024 7:20 AM CDT Appointment Department of Laboratory Medicine in [address] [phone] Angelica Hutchins M.D. [address] [place] [phone] 04/28/2024 7:20 AM CDT Appointment Department of Laboratory Medicine in [address] [phone] Angelica Hutchins M.D. [address] [place] [phone] 04/28/2024 7:40 AM CDT Appointment Department of Laboratory Medicine in [address] [phone] Angelica Hutchins M.D. [address] [place] [phone] 05/05/2024 7:50 AM CDT Appointment Department of Laboratory Medicine in [address] [phone] Angelica Hutchins M.D. [address] [place] [phone] 05/12/2024 7:20 AM CDT Appointment Department of Laboratory Medicine in [address] [phone] Angelica Hutchins M.D. [address] [place] [phone] 05/19/2024 7:20 AM CDT Appointment Department of Laboratory Medicine in [address] [phone] Angelica Hutchins M.D. [address] [place] [phone] 05/26/2024 7:20 AM CDT Appointment Department of Laboratory Medicine in [address] [phone] Angelica Hutchins M.D. [address] [place] [phone] 05/26/2024 7:30 AM CDT Appointment Department of Laboratory Medicine in [address] [phone] Angelica Hutchins M.D. [address] [place] [phone] 06/02/2024 7:20 AM CDT Appointment Department of Laboratory Medicine in [address] [phone] Angelica Hutchins M.D. [address] [place] [phone] 06/30/2024 7:20 AM CDT Appointment Department of Laboratory Medicine in [address] [phone] Angelica Hutchins M.D. [address] [place] [phone] 06/30/2024 7:30 AM CDT Appointment Department of Laboratory Medicine in [address] [phone] Angelica Hutchins M.D. [address] [place] [phone] 07/29/2024 7:20 AM CDT Appointment Department of Laboratory Medicine in [address] [phone] Angelica Hutchins M.D. [address] [place] [phone] 07/29/2024 7:30 AM CDT Appointment Department of Laboratory Medicine in [address] [phone] Angelica Hutchins M.D. 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
--- OUTSIDE RECORDS SUMMARY | 2024-03-12 05:54 | XMS_ITS | Encounter Summary ---
Author Name Unknown Organization [facility] Address [address] [place] [address] Care Team Providers Care Certified Hyperbaric Technologist Name Role Phone Elsewhere, Pcp Primary Care Provider Unavailabl e Encounter Details Date Type Department Care Team (Latest Contact Info) Description 03/11/2024 Clinical Communication [facility] in [place], [place] [address] [place] [address] Angelica Hutchins M.D. [address] [place] [phone] Social History Tobacco Use Types Packs/Day Years [...] often do you attend chur ch or muslim services? 1 to 4 times per year 02/13/2023 Do you belong to any clubs o r organizations such as moravian groups, unions, fraternal or athletic groups, or [...] Answer Date Recorded PHQ-2 Score 0 09/10/2023 [facility] - Occupational Stress [...] place to sleep or slept in a mcc (including now)? No 02/13/2023 Depression Answer Date [...] Sex Assigned at Female 11/13/2018 9:36 AM PARKING LINE PAINTER Gender Identity Female 11/13/2018 9:36 AM PARKING LINE PAINTER Sexual Orientation Straight 11/13/2018 9: 36 AM PARKING LINE PAINTER documented as of this encounter Plan of Treatment Upcoming Encounters Date Type Department Care Team (Latest Contact Info) Description 03/17/2024 7:20 AM CDT Appointment Department of Laboratory Medicine in [address] [phone] Angelica Hutchins M.D. [address] [place] [phone] 03/24/2024 7:10 AM CDT Appointment Department of Laboratory Medicine in [address] [phone] Juan Grier, STUART, C.N.P., M.S.N. [address] [place] [phone] 03/24/2024 7:20 AM CDT Appointment Department of Laboratory Medicine in [address] [phone] Angelica Hutchins M.D. [address] [place] [phone] 04/07/2024 8:20 AM CDT Appointment Department of Laboratory Medicine in [address] [phone] Angelica Hutchins M.D. [address] [place] [phone] 04/14/2024 8:00 AM CDT Appointment Department of Laboratory Medicine in [address] [phone] Angelica Hutchins M.D. [address] [place] [phone] 04/15/2024 2:00 PM CDT Clinical Communication Virtual Review in [address] [address] 04/17/2024 11:00 AM CDT Office Visit Department of Neurology in [place], [place] [address] [place] [phone] Wang Bass M.D. [address] [place] [phone] 04/22/2024 7:20 AM CDT Appointment Department of Laboratory Medicine in [address] [phone] Angelica Hutchins M.D. [address] [place] [phone] 04/28/2024 7:20 AM CDT Appointment Department of Laboratory Medicine in [address] [phone] Angelica Hutchins M.D. [address] [place] [phone] 04/28/2024 7:40 AM CDT Appointment Department of Laboratory Medicine in [address] [phone] Angelica Hutchins M.D. [address] [place] [phone] 05/05/2024 7:50 AM CDT Appointment Department of Laboratory Medicine in [address] [phone] Angelica Hutchins M.D. [address] [place] [address] [phone] 05/12/2024 7:20 AM CDT Appointment Department of Laboratory Medicine in [address] [phone] Angelica Hutchins M.D. [address] [place] [phone] 05/19/2024 7:20 AM CDT Appointment Department of Laboratory Medicine in [address] [phone] Angelica Hutchins M.D. [address] [place] [phone] 05/26/2024 7:20 AM CDT Appointment Department of Laboratory Medicine in [address] [phone] Angelica Hutchins M.D. [address] [place] [phone] 05/26/2024 7:30 AM CDT Appointment Department of Laboratory Medicine in [address] [address] Angelica Hutchins M.D. [address] [place] [phone] 06/02/2024 7:20 AM CDT Appointment Department of Laboratory Medicine in [address] [phone] Angelica Hutchins M.D. [address] [place] [phone] 06/30/2024 7:20 AM CDT Appointment Department of Laboratory Medicine in [address] [phone] Angelica Hutchins M.D. [address] [place] [phone] 06/30/2024 7:30 AM CDT Appointment Department of Laboratory Medicine in [address] [phone] Angelica Hutchins M.D. [address] [place] [phone] 07/29/2024 7:20 AM CDT Appointment Department of Laboratory Medicine in [address] [phone] Angelica Hutchins M.D. [address] [place] [phone] 07/29/2024 7:30 AM CDT Appointment Department of Laboratory Medicine in [address] [phone] Angelica Hutchins M.D. [address] [place] [phone] documented as of this encounter Visit Diagnoses Not on filedocumented in this encounter Additional Health Concerns Infection Onset Date Last Indicated Resolved Time Protective Environment 03/08/2023 03/08/2023 Assessment Noted Time PHQ-9 Depression Total Score: 1 11/23/20 19 7:04 PM PARKING LINE PAINTER documented as of this encounter Care Teams Certified Hyperbaric Technologist Relationship Specialty Start Date End Date Elsewhere, Pcp PCP - General Field Clinical Engineer 11/24/[address] [address] Laboratory Medicine 09/18/20 documented as of this encounter
--- OUTSIDE RECORDS SUMMARY | 2024-03-12 05:54 | XMS_ITS | Referral Summary ---
Author Name Unknown Organization [facility] Address [address] [place] [address] Care Team Providers Care Ripening Room Attendant Name Role Phone Elsewhere, Pcp Primary Care Provider Unavailabl e Source Comments Patient records contain information from all sites at [facility]. For routine questions regarding patient records, call [phone] during business hours, M-F 8:00 AM - 5:00 PM Central Time. Record requests for emergency care only can be directed to [phone] at any time.[facility] Encounters Date Type Department Care Team Description 4 Clinical Communication [facility] [place], [place] [address] [place] [address] Angelica Hutchins M.D. 4 Refill Lucien [facility] Clinical Regeneration in [place], [place] [address] [place] [address] Ayanna James R.N., C.C.T.C. Med Refill 4 7:20 AM CDT - 4 11:59 PM CDT Hospital Encounter Department of Laboratory Medicine in [address] [phone] Juan Grier, STUART CSravanthiN.P., M.S.N. Transplant Renal (HCC); High 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; Immunodeficiency Due To Drugs (HCC); Mismatch Cytomegalovirus Discharge Disposition: Home or Self Care 4 6:59 PM CDT - 4 11:59 PM CDT Hospital [place] [address] [place] [phone] Wang Bass M.D. Demyelinating Disease Central Nervous System (HCC) Discharge Disposition: Home or Self Care 4 Refill [facility] Transplantation [facility] Clinical Regeneration in [place], [place] [address] [place] [phone] Sandra Chen R.N. Med Refill 4 11:03 AM CDT - 4 5:25 PM CDT Emergency [facility] Emergency Department [address] [place] [phone] Rafita Patterson P.Isael.-Nely Heard, P.A.-C., M.S. Multiple Sclerosis (HCC) (Primary Dx); Paresthesia; Pain Chest Discharge Disposition: Home or Self Care 4 Orders Only [facility] Trans[facility] Clinical Regeneration in [place], [place] [address] [place] [phone] Eli Infante, RColleen Mismatch Cytomegalovirus (Primary Dx); High 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; Transplant Renal (HCC); Immunodeficiency Due To Drugs (HCC) 4 9:58 AM CDT - 4 11:59 PM CDT Hospital Encounter Division of Pulmonary Medicine in [place], [place] [address] [place] [phone] Radha Julian M.D. 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 Follow-up (Post procedure follow up phone call.) 4 1:30 PM CDT Telemedicine [facility] Transplantation and Clinical Regeneration in [place], [place] [address] [place] [address] Juan Grier APRN, C.NChris., M.S.N. Angelica Hutchins M.D. 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 Ricci Collins M.D. Transplant Renal (HCC) (Primary Dx); Hypertension Essential Primary; Diabetes Mellitus 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); Immunodeficiency Due To Drugs (HCC); Lupus Systemic Erythematosus (HCC); Hypomagnesemia; Edema Peripheral 4 9:58 AM CDT - 4 1:32 PM CDT Hospital Encounter Outpatient Surgery Unit in [place], [place] [address] [place] [address] Juan Grier APRN C.N.P., M.S.N. Transplant Renal (HCC) Discharge Disposition: Home or Self Care 4 Clinical Communication [facility] Clinical [facility]eneration in [place], [place] [address] [place] [address] Sheryl Betancourt APRN, C.N.P., M.S.N. 4 Clinical Communication [facility] Trans[facility] Clinical [facility]eneration in [place], [place] [address] [place] [address] Charu Alicea R.N. Tacrolimus Adjustment Protocol 4 11:00 AM LEVEL VIAL CURVATURE GAUGER Telemedicine [facility] Transplantation and Clinical Regeneration in [place], [place] [address] [place] [address] Kimmy Mike M.D. Arielle Woodall M.S., RDN, LD Transplant Renal (HCC); Immunodeficiency Due To Drugs (HCC); High 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 4 7:20 AM LEVEL VIAL CURVATURE GAUGER - 4 11:59 PM LEVEL VIAL CURVATURE GAUGER Hospital Encounter Department of Laboratory Medicine in [address] [phone] Juan Grier APRN, C.N.P., M.S.N. Transplant Renal (HCC); High 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; Immunodeficiency Due To Drugs (HCC); Diabetes Mellitus 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); Aftercare Transplant Renal (HCC) Discharge Disposition: Home or Self Care 4 Refill [facility] Transplantation [facility] Clinical Regeneration in [place], [place] [address] [place] [address] Juan Grier APRN, C.N.P., M.S.N. Med Refill 4 Orders Only [facility] Trans[facility] Clinical [facility]eneration in [place], [place] [address] [place] [phone] Eli Infante, RLiz. Aftercare Transplant Renal (HCC) (Primary Dx); High 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; Transplant Renal (HCC); Immunodeficiency Due To Drugs (HCC) 4 Orders Only Division of Gastroenterology in [place], [place] [address] [place] [address] Elmer Parikh M.D. Genetic Susceptibility To Disease 4 Refill [facility] Trans[facility] Clinical Regeneration in [place], [place] [address] [place] [address] Charu Alicea, RSravanthiN. Med Refill 4 8:30 AM LEVEL VIAL CURVATURE GAUGER - 4 11:59 PM [facility] Hospital Encounter Division of Pulmonary Medicine in [place], [place] [address] [place] [address] Radha Julian M.D. 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 4 Refill [facility] in [place], [place] [address] [place] [address] Charu Alicea, R.N. Med Refill 4 Orders Only [facility] Transplantation and Clinical Regeneration in [place], [place] [address] [place] [address] Charu Alicea, R.N. Aftercare Transplant Renal (HCC) (Primary Dx); High 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; Immunodeficiency Due To Drugs (HCC) 4 Refill [facility] Transplantation [facility] Clinical Regeneration in [place], [place] [address] [place] [address] Charu Alicea, R.N. Med Refill 4 Documentation [facility] Transplantation and Clinical Regeneration in [place], [place] [address] [place] [address] Jessie Decker M.D. 4 Documentation [facility] Transplantation [facility] Clinical Regeneration in [place], [place] [address] [place] [address] Cristofer Castillo M.D. 4 Orders Only [facility] Transplantation [facility] Clinical Regeneration in [place], [place] [address] [place] [address] Juan Grier, STUART, C.N.P., M.S.N. Illness Febrile (Primary Dx); Transplant Renal (HCC) 4 9:47 AM LEVEL VIAL CURVATURE GAUGER - 4 12:09 PM LEVEL VIAL CURVATURE GAUGER Emergency [facility] [address] [place] [phone] Aldo Collier APRN, C.N.P., D.N.P. Acute Cystitis Without Hematuria (Primary Dx); Transplant Renal (HCC); Immunodeficiency Due To Drugs (HCC) Discharge Disposition: Home or Self Care 4 Clinical Communication [facility] Transplantation and Clinical Regeneration in [place], [place] [address] [place] [phone] Cristofer Castillo M.D. 4 7:40 AM LEVEL VIAL CURVATURE GAUGER Lab Department of Laboratory Medicine and Pathology, [facility], in [place], [place] [address] [place] [address] Kimmy Mike M.D. Transplant Renal (HCC); Immunodeficiency Due To Drugs (HCC); High 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 4 9:30 AM LEVEL VIAL CURVATURE GAUGER Office Visit [facility] Transplantation [facility] Clinical Regeneration in [place], [place] [address] [place] [address] Kimmy Mike M.D. Riad, Samy M, M.D. Illness Febrile (Primary Dx); Transplant Renal (HCC); Immunodeficiency Due To Drugs (HCC); High 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 4 Refill [facility] Transplantation and Clinical Regeneration in [place], [place] [address] [place] [address] Juan Grier APRN, C.N.P., M.S.N. Med Change Request 4 Refill [facility] Transplantation [facility] Clinical [facility]eneration in [place], [place] [address] [place] [address] Bipin Chen R.N., C.C.T.C. Med Refill 4 Clinical Communication [facility] Trans[facility] Clinical Regeneration in [place], [place] [address] [place] [address] Bipin Chen R.N., C.C.T.C. Mycophenolate AUC Monitoring 4 7:25 AM LEVEL VIAL CURVATURE GAUGER - 4 11:59 PM LEVEL VIAL CURVATURE GAUGER Hospital Encounter Department of Laboratory Medicine in [address] [address] Angelica Hutchins M.D. Transplant Renal (HCC); High 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; Immunodeficiency (HCC) Discharge Disposition: Home or Self Care 4 7:24 AM LEVEL VIAL CURVATURE GAUGER Hospital Encounter Department of Laboratory Medicine in [address] [address] Angelica Hutchins M.D. Transplant Renal (HCC); High 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; Immunodeficiency (HCC) Discharge Disposition: Home or Self Care 4 7:20 AM LEVEL VIAL CURVATURE GAUGER - 4 7:23 AM LEVEL VIAL CURVATURE GAUGER Hospital Encounter Department of Laboratory Medicine in [address] [address] Juan Grier APRN, C.N.P., M.S.N. Transplant Renal (HCC); High 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; Immunodeficiency Due To Drugs (HCC); Immunodeficiency (HCC); Hypomagnesemia; Hypophosphatemia Discharge Disposition: Home or Self Care 4 [facility] in [place], [place] [address] [place] [address] Bipin Chen R.N., C.C.T.C. Med Refill 4 Clinical Communication [facility] Transplantation and Clinical Regeneration in [place], [place] [address] [place] [address] Sheryl Betancourt APRN, C.N.P., M.S.N. 4 8:00 AM LEVEL VIAL CURVATURE GAUGER Office Visit Department of Dermatology in [place], [place] [address] [place] [phone] Gabby Clark M.D. Nevus Dermal (Primary Dx); Keratosis Seborrheic Discharge Disposition: Home or Self Care 4 8:22 AM LEVEL VIAL CURVATURE GAUGER - 4 11:59 PM LEVEL VIAL CURVATURE GAUGER Hospital Encounter Division of Pulmonary Medicine in [place], [place] [address] [place] [phone] Radha Julian M.D. 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 Transplant Renal (HCC) (Primary Dx); High 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; Immunodeficiency (HCC) 4 Refill [facility] Transplantation and Clinical Regeneration in [place], [place] [address] [place] [phone] Juan Grier, STUART, C.N.P., M.S.N. Med Refill 4 Refill [facility] Transplantation and Clinical Regeneration in [place], [place] [address] [place] [phone] Charu Alicea, R.N. Med Refill 4 Clinical Communication [facility] Transplantation and Clinical Regeneration in [place], [place] [address] [place] [phone] Bipin Chen R.N., C.C.T.C. Phone Contact 4 Orders Only [facility] Transplantation and Clinical Regeneration in [place], [place] [address] [place] [phone] Bipin Chen R.N., C.C.T.C. Transplant Renal (HCC) (Primary Dx); High 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; Immunodeficiency (HCC); Hypomagnesemia; Hypophosphatemia 4 Orders Only Lucien Ho [facility] in [place], [place] [address] [place] [address] Bipin Chen R.N., C.C.T.C. Hypophosphatemia (Primary Dx); Transplant Renal (HCC); High 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; Immunodeficiency (HCC) 4 7:20 AM LEVEL VIAL CURVATURE GAUGER - 4 11:59 PM LEVEL VIAL CURVATURE GAUGER Hospital Encounter Department of Laboratory Medicine in [address] [phone] Juan Grier, STUART, C.N.P., M.S.N. Transplant Renal (HCC); High 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; Immunodeficiency Due To Drugs (HCC) Discharge Disposition: Home or Self Care from Last 3 Months Allergies Active Allergy Reactions Criticality Noted Date [...] one time each day. 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 Initial 04/09/2018 Presence Of Left Artificial Hip Joint 04/09/2018 Overview: 1988, revision head and liner 2005 per patient ([place], [place]) Presence Of Artificial Knee Joint Bilateral 03/26 Overview: R TKA 1992, revision 2004 ([place], [place]); L TKA 2004 ([place], [place]) Myelitis 12/19/2017 Demyelinating Disease Central Nervous System Lupus Systemic Erythematosus 09/22/2017 Overview: dx'd 1997 dx'd 1997 Hemiplegic Migraine Not Intr actable Without Status Migrainosus 09/22/2017 Immunodeficiency Due To Drugs 04/17/2016 Hyperlipidemia 07/10/2013 Hypertension Chronic 01/09/2013 Transplant Renal 08/03/2011 Complication Kidney Transplant 03/13/2011 Anemia Of Renal Failure End Stage Disease 2010 Resolved Problems Problem Noted Date Diagnosed Date Resolved Date Preanesthesia Medical Pretransplant Exam 08/17/2023 08/29/2023 Pretransplant Recipient Evaluation Exam 01/18/2023 08/29/2023 Immunizations Name Administration Dates Next Due HepA Adult 07/11/2021,11/16/2020 HepB Adult 01/03/2021, 0,01/24/2011,2010 Hib, Unspecified 06/09/2011 MPSV4 06/09/2011 PCV13 12/19/2017 PPSV23(Discontinued) 11/15/2018,12/19/2017,01/02 RZV (SHINGRIX) 07/11/2021,01/03/2021 SARS-COV-2 (COVID-19) - PFIZ ER (Discontinued)(12 years or older) 12/22/2021,07/11/2021,02/25/2021,2020 Tdap 07/11/2021,12/27/2010 influenza vaccine quad (FLUZONE/FLUARIX) (6 months and older)(PF) 09/27/2022,09/16/2021,11/16/2020,2018,11/15/2018,09/05/2017,09/19/2010 Social History Tobacco Use Types Packs/Day Years [...] often do you attend chur ch or congregational services? 1 to 4 times per year 02/13/2023 Do you belong to any clubs o r organizations such as adventist groups, unions, fraternal or athletic groups, or [...] Answer Date Recorded PHQ-2 Score 0 09/10/2023 [facility] [place] [facility] Occupat ional Health - Occupational Stress [...] place to sleep or slept in a snf (including now)? No 02/13/2023 Depression Answer Date [...] Sex Assigned at Female 11/13/2018 9:36 AM LEVEL VIAL CURVATURE GAUGER Gender Identity Female 11/13/2018 9:36 AM LEVEL VIAL CURVATURE GAUGER Sexual Orientation Straight 11/13/2018 9: 36 AM LEVEL VIAL CURVATURE GAUGER Last Filed Vital Signs Vital Sign Reading [...] CDT Appointment Department of Laboratory Medicine in [address] [phone] Angelica Hutchins M.D. 200 [place] [address] 03/24/2024 7:10 AM CDT Appointment Department of Laboratory Medicine in [address] [phone] Juan Grier APRN, C.N.P., M.S.N. [address] [place] [phone] 03/24/2024 7:20 AM CDT Appointment Department of Laboratory Medicine in [address] [address] Angelica Hutchins M.D. [address] [place] [phone] 04/07/2024 8:20 AM CDT Appointment Department of Laboratory Medicine in [address] [phone] Angelica Hutchins M.D. [address] [place] [phone] 04/14/2024 8:00 AM CDT Appointment Department of Laboratory Medicine in [address] [phone] Angelica Hutchins M.D. [address] [place] [phone] 04/15/2024 2:00 PM CDT Clinical Communication Virtual Review in [address] [address] 04/17/2024 11:00 AM CDT Office Visit Department of Neurology in [address] [address] Wang Bass M.D. [address] [place] [phone] 04/22/2024 7:20 AM CDT Appointment Department of Laboratory Medicine in [address] [address] Angelica Hutchins M.D. [address] [place] [phone] 04/28/2024 7:20 AM CDT Appointment Department of Laboratory Medicine in [address] [address] Angelica Hutchins M.D. [address] [place] [phone] 04/28/2024 7:40 AM CDT Appointment Department of Laboratory Medicine in [address] [address] Angelica Hutchins M.D. [address] [place] [phone] 05/05/2024 7:50 AM CDT Appointment Department of Laboratory Medicine in [address] [address] Angelica Hutchins M.D. [address] [place] [phone] 05/12/2024 7:20 AM CDT Appointment Department of Laboratory Medicine in [address] [address] Angelica Hutchins M.D. [address] [place] [phone] 05/19/2024 7:20 AM CDT Appointment Department of Laboratory Medicine in [address] [address] Angelica Hutchins M.D. [address] [place] [phone] 05/26/2024 7:20 AM CDT Appointment Department of Laboratory Medicine in [address] [phone] Angelica Hutchins M.D. [address] [place] [phone] 05/26/2024 7:30 AM CDT Appointment Department of Laboratory Medicine in [address] [phone] Angelica Hutchins M.D. [address] [place] [phone] 06/02/2024 7:20 AM CDT Appointment Department of Laboratory Medicine in [address] [phone] Angelica Hutchins M.D. [address] [place] [phone] 06/30/2024 7:20 AM CDT Appointment Department of Laboratory Medicine in [address] [phone] Angelica Hutchins M.D. [address] [place] [phone] 06/30/2024 7:30 AM CDT Appointment Department of Laboratory Medicine in [address] [address] Angelica Hutchins M.D. [address] [place] [phone] 07/29/2024 7:20 AM CDT Appointment Department of Laboratory Medicine in [address] [phone] Angelica Hutchins M.D. [address] [place] [phone] 07/29/2024 7:30 AM CDT Appointment Department of Laboratory Medicine in [address] [phone] Angelica Hutchins M.D. [address] [place] [phone] Medical Devices Implanted Type Area High Rigger Device Identifier Shelf Expiration Date Model / Serial / Lot Grft Inf Spng Bmp Small 2.8 - [id number] Implanted:Qty: 1 on 11/07/2021 by Elio Hernandez M.D. at [facility] Bone or Tissue Right: Ankle Medtronic 04/25/2023 [id number] / / [id number] Scrw St Pthrd Nlck Sj 6.7x50 - [id number] Implanted:Qty: 1 on 11/07/2021 by Elio Hernandez M.D. at [facility] Hardware e.g. pins/screws /rods Right: Ankle Arthrex [id number] 50 / / Scrw St Pthrd Nlck Sj 6.7x40 - [id number] Implanted:Qty: 1 on 11/07/2021 by Elio Hernandez M.D. at [facility] Hardware e.g. pins/screws /rods Right: Ankle Arthrex AR-8967-18 40 / / Scrw St Pthrd Nlck Sj 6.7x45 - [id number] Implanted:Qty: 1 on 11/07/2021 by Elio Hernandez M.D. at [facility] Hardware e.g. pins/screws /rods Right: [...] Status Text - [id number]. Explanted Type Area High Rigger Device Identifier Shelf Expiration Date Model / Serial / Lot Stnt Uret Cls Tp Dbl 7fx12 - [id number] Implanted:Qty : 1 on 08/30/2023 by Grant Godinez M.D. at [facility] Explanted:Qty : 1 on 09/02/2023 by Livia Lovell R.N. Ureteral Stent [facility] [id number] / / Procedures Procedure Name Priority Date/Time [...] CDT ECG STAT 02/21/2024 11:22 AM CDT KIDNEY TRANSPLANT BIOPSY LEFT RAD - Routine (most inpatients and all outpatients) 02/08/2024 11:20 AM CDT Transplant Renal (HCC) RENAL PATHOLOGY Routine 02/08/2024 11:06 AM CDT Transplant Renal (HCC) DIPSTICK, U Routine 02/08/2024 6:58 AM CDT CO OSMOLALITY ASSAY URINE Routine 02/08/2024 6:58 AM CDT PH, RANDOM, U Routine 02/08/2024 6:58 AM CDT MICROSCOPIC MANUAL Routine 02/08/2024 6: 58 AM CDT URINALYSIS WITH MICROSCOPIC Routine 02/08/2024 6:58 AM CDT Transplant Renal (HCC) BACTERIAL CULTURE, AEROBIC + SUSC, URINE Routine 02/08/2024 6:58 AM CDT Transplant Renal (HCC) PROTHROMBIN TIME (PT), P Routine 02/08/2024 6:52 AM CDT Transplant Renal (HCC) MAGNESIUM, S Routine 02/08/2024 6:52 AM CDT Transplant Renal (HCC) RENAL FUNCTION PANEL, S Routine 02/08/2024 6:52 AM CDT Transplant Renal (HCC) CBC WITH DIFFERENTIAL, B Routine 02/08/2024 6:52 AM CDT Transplant Renal (HCC) BKV DNA DETECT/QUANT, P Routine 02/08/2024 6:51 AM CDT Transplant Renal (HCC) TACROLIMUS LEVEL, B Routine 02/08/2024 6 :48 AM CDT Transplant Renal (HCC) IRON AND TOT IRON-BINDING CAPACITY, S/P Routine 02/08/2024 6:34 AM CDT FERRITIN, S Routine 02/08/2024 6:34 AM CDT Transplant Renal (HCC) URINALYSIS WITH MICROSCOPIC Routine 01/28/2024 7:41 AM LEVEL VIAL CURVATURE GAUGER Aftercare Transplant Renal (HCC) High 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) BACTERIAL CULTURE, AEROBIC + SUSC, URINE Routine 01/28/2024 7:41 AM LEVEL VIAL CURVATURE GAUGER Aftercare Transplant Renal (HCC) High 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) CBC WITH DIFFERENTIAL, B Routine 01/28/2024 7:34 AM LEVEL VIAL CURVATURE GAUGER Aftercare Transplant Renal (HCC) High 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) BASIC METABOLIC PANEL, S/P Routine 01/28/2024 7:34 AM LEVEL VIAL CURVATURE GAUGER Aftercare Transplant Renal (HCC) High 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) HEMOGLOBIN A1C, B Routine 01/28/2024 7:3 4 AM LEVEL VIAL CURVATURE GAUGER Diabetes Mellitus 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) BKV DNA DETECT/QUANT, P Routine 01/28/2024 7:34 AM LEVEL VIAL CURVATURE GAUGER Transplant Renal (HCC) High 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 Immunodeficiency Due To Drugs (HCC) TACROLIMUS LEVEL, B Routine 01/28/2024 7 :33 AM LEVEL VIAL CURVATURE GAUGER Aftercare Transplant Renal (HCC) High 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) CMV DNA DETECT/QUANT, P Routine 01/28/2024 7:33 AM LEVEL VIAL CURVATURE GAUGER Aftercare Transplant Renal (HCC) MAGNESIUM, S Routine 01/18/2024 8:13 AM LEVEL VIAL CURVATURE GAUGER Aftercare Transplant Renal (HCC) High 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 Immunodeficiency Due To Drugs (HCC) PHOSPHORUS (INORGANIC), S Routine 01/18/2024 8:13 AM LEVEL VIAL CURVATURE GAUGER Aftercare Transplant Renal (HCC) High 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 Immunodeficiency Due To Drugs (HCC) TACROLIMUS LEVEL, B Routine 01/18/2024 8 :13 AM LEVEL VIAL CURVATURE GAUGER Aftercare Transplant Renal (HCC) High 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 Immunodeficiency Due To Drugs (HCC) BASIC METABOLIC PANEL, S/P Routine 01/18/2024 8:13 AM LEVEL VIAL CURVATURE GAUGER Aftercare Transplant Renal (HCC) High 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 Immunodeficiency Due To Drugs (HCC) CBC WITH DIFFERENTIAL, B Routine 01/18/2024 8:13 AM LEVEL VIAL CURVATURE GAUGER Aftercare Transplant Renal (HCC) High 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 Immunodeficiency Due To Drugs (HCC) BKV DNA DETECT/QUANT, P Routine 01/18/2024 8:13 AM LEVEL VIAL CURVATURE GAUGER Aftercare Transplant Renal (HCC) High 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 Immunodeficiency Due To Drugs (HCC) CMV DNA DETECT/QUANT, P Routine 01/18/2024 8:13 AM LEVEL VIAL CURVATURE GAUGER Illness Febrile DX CHEST AP OR PA AND LATERAL 2 VIEWS RAD - Semiurgent (Fast; most ED patients; some inpatients) 01/15/2024 10:31 AM LEVEL VIAL CURVATURE GAUGER BACTERIA / PHOEBE CULTURE, BLOOD Routine 01/15/2024 10:28 AM LEVEL VIAL CURVATURE GAUGER BACTERIA / PHOEBE CULTURE, BLOOD Routine 01/15/2024 10:28 AM LEVEL VIAL CURVATURE GAUGER VBG (VENOUS BLOOD GAS), POCT, B Routine 01/15/2024 9:55 AM LEVEL VIAL CURVATURE GAUGER HC URINALYSIS AUTO W MICRO Routine 01/15/2024 9:55 AM LEVEL VIAL CURVATURE GAUGER C-REACTIVE PROTEIN (CRP), S/P Routine 01/15/2024 9:55 AM LEVEL VIAL CURVATURE GAUGER URINALYSIS WITH MICROSCOPIC IF INDICATED, U Routine 01/15/2024 9:55 AM LEVEL VIAL CURVATURE GAUGER LACTATE, B/P Routine 01/15/2024 9:55 AM LEVEL VIAL CURVATURE GAUGER COMPREHENSIVE METABOLIC PANEL, S/P Routine 01/15/2024 9:55 AM LEVEL VIAL CURVATURE GAUGER CBC WITH DIFFERENTIAL, B Routine 01/15/2024 9:55 AM LEVEL VIAL CURVATURE GAUGER BACTERIAL CULTURE, AEROBIC + SUSC, URINE Routine 01/15/2024 9:55 AM LEVEL VIAL CURVATURE GAUGER BACTERIA / PHOEBE CULTURE, BLOOD Routine 01/14/2024 11:25 AM LEVEL VIAL CURVATURE GAUGER Transplant Renal (HCC) Illness Febrile RESPIRATORY PANEL, PCR, STAFF REPORTER Routine 01/14/2024 11:25 AM LEVEL VIAL CURVATURE GAUGER Transplant Renal (HCC) Illness Febrile GROUP A STREP PCR, THROAT Routine 01/14/2024 11:24 AM LEVEL VIAL CURVATURE GAUGER Transplant Renal (HCC) Illness Febrile BACTERIA / PHOEBE CULTURE, BLOOD Routine 01/14/2024 11:06 AM LEVEL VIAL CURVATURE GAUGER Transplant Renal (HCC) Illness Febrile BKV DNA DETECT/QUANT, U Routine 01/14/2024 8:54 AM LEVEL VIAL CURVATURE GAUGER 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 DIPSTICK, U Routine 01/14/2024 8:19 AM LEVEL VIAL CURVATURE GAUGER CO OSMOLALITY ASSAY URINE Routine 01/14/2024 8:19 AM LEVEL VIAL CURVATURE GAUGER PH, RANDOM, U Routine 01/14/2024 8:19 AM LEVEL VIAL CURVATURE GAUGER MICROSCOPIC MANUAL Routine 01/14/2024 8: 19 AM LEVEL VIAL CURVATURE GAUGER URINALYSIS WITH MICROSCOPIC Routine 01/14/2024 8:19 AM LEVEL VIAL CURVATURE GAUGER 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 GRAM'S ST, U Routine 01/14/2024 8:19 AM LEVEL VIAL CURVATURE GAUGER 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 LAKE/KID STORAGE, U Routine 01/14/2024 8: 19 AM LEVEL VIAL CURVATURE GAUGER 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 BACTERIAL CULTURE, AEROBIC + SUSC, URINE Routine 01/14/2024 8:19 AM LEVEL VIAL CURVATURE GAUGER 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 HLA CLASS I/II COMBINED CPRA, SERUM Routine 01/14/2024 8:15 AM LEVEL VIAL CURVATURE GAUGER HLA CLASS II SAB ANTIBODY SCREEN Routine 01/14/2024 8:15 AM LEVEL VIAL CURVATURE GAUGER 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 HLA CLASS I SAB ANTIBODY SCREEN Routine 01/14/2024 8:15 AM LEVEL VIAL CURVATURE GAUGER 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 MYCOPHENOLIC ACID, S Routine 01/14/2024 8:15 AM LEVEL VIAL CURVATURE GAUGER 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 TACROLIMUS LEVEL, B Routine 01/14/2024 8 :15 AM LEVEL VIAL CURVATURE GAUGER 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 HEMOGLOBIN A1C, B Routine 01/14/2024 8:1 5 AM LEVEL VIAL CURVATURE GAUGER 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 LAKE/KID POST TRANS STORAGE, B Routine 01/14/2024 8:15 AM LEVEL VIAL CURVATURE GAUGER 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 25-HYDROXYVITAMIN D2 AND D3, S Routine 01/14/2024 8:15 AM LEVEL VIAL CURVATURE GAUGER 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 TROPONIN T, 5TH GEN, P Routine 01/14/2024 8:15 AM LEVEL VIAL CURVATURE GAUGER 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 LIPID PANEL, S Routine 01/14/2024 8:15 AM LEVEL VIAL CURVATURE GAUGER 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 PHOSPHORUS (INORGANIC), S Routine 01/14/2024 8:15 AM LEVEL VIAL CURVATURE GAUGER 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 MAGNESIUM, S Routine 01/14/2024 8:15 AM LEVEL VIAL CURVATURE GAUGER 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 COMPREHENSIVE METABOLIC PANEL, S/P Routine 01/14/2024 8:15 AM LEVEL VIAL CURVATURE GAUGER 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 CBC WITH DIFFERENTIAL, B Routine 01/14/2024 8:15 AM LEVEL VIAL CURVATURE GAUGER 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 BKV DNA DETECT/QUANT, P Routine 01/14/2024 8:15 AM LEVEL VIAL CURVATURE GAUGER 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 ACTIVATED PARTIAL THROMBOPLASTIN TIME (APTT), P Routine 01/14/2024 8:14 AM LEVEL VIAL CURVATURE GAUGER 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 PROTHROMBIN TIME (PT), P Routine 01/14/2024 8:14 AM LEVEL VIAL CURVATURE GAUGER 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 MYCOPHENOLIC ACID, S Routine 12/31/2023 9:41 AM LEVEL VIAL CURVATURE GAUGER Transplant Renal (HCC) High 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 Immunodeficiency (HCC) MYCOPHENOLIC ACID, S Routine 12/31/2023 8:12 AM LEVEL VIAL CURVATURE GAUGER Transplant Renal (HCC) High 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 Immunodeficiency (HCC) PHOSPHORUS (INORGANIC), S Routine 12/31/2023 7:48 AM LEVEL VIAL CURVATURE GAUGER Transplant Renal (HCC) High 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 Immunodeficiency (HCC) Hypophosphatemia MAGNESIUM, S Routine 12/31/2023 7:48 AM LEVEL VIAL CURVATURE GAUGER Transplant Renal (HCC) High 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 Immunodeficiency (HCC) Hypomagnesemia CBC WITH DIFFERENTIAL, B Routine 12/31/2023 7:48 AM LEVEL VIAL CURVATURE GAUGER Transplant Renal (HCC) High 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 Immunodeficiency (HCC) GLUCOSE, FASTING, S/P Routine 12/31/2023 7:48 AM LEVEL VIAL CURVATURE GAUGER Transplant Renal (HCC) High 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 Immunodeficiency (HCC) BASIC METABOLIC PANEL, S/P Routine 12/31/2023 7:48 AM LEVEL VIAL CURVATURE GAUGER Transplant Renal (HCC) High 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 Immunodeficiency (HCC) BKV DNA DETECT/QUANT, P Routine 12/31/2023 7:48 AM LEVEL VIAL CURVATURE GAUGER Transplant Renal (HCC) High 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 Immunodeficiency Due To Drugs (HCC) MYCOPHENOLIC ACID, S Routine 12/31/2023 7:35 AM LEVEL VIAL CURVATURE GAUGER Transplant Renal (HCC) High 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 Immunodeficiency (HCC) TACROLIMUS LEVEL, B Routine 12/31/2023 7 :35 AM LEVEL VIAL CURVATURE GAUGER Transplant Renal (HCC) High 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 Immunodeficiency (HCC) PHOSPHORUS (INORGANIC), S Routine 12/17/2023 7:35 AM LEVEL VIAL CURVATURE GAUGER MAGNESIUM, S Routine 12/17/2023 7:35 AM LEVEL VIAL CURVATURE GAUGER TACROLIMUS LEVEL, B Timed 12/17/2023 7 :35 AM LEVEL VIAL CURVATURE GAUGER BASIC METABOLIC PANEL, S/P Routine 12/17/2023 7:35 AM LEVEL VIAL CURVATURE GAUGER CBC WITH DIFFERENTIAL, B Routine 12/17/2023 7:35 AM LEVEL VIAL CURVATURE GAUGER BKV DNA DETECT/QUANT, P Routine 12/17/2023 7:35 AM LEVEL VIAL CURVATURE GAUGER Transplant Renal (HCC) High 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 Immunodeficiency Due To Drugs (HCC) ALBUMIN, RANDOM, U Routine 12/03/2023 8: 54 AM LEVEL VIAL CURVATURE GAUGER 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 BKV DNA Detect/Quant, P 159(A) Undetected IU/mL 03/11/2024 7:45 PM CDT [facility] Comment: Result in log IU/mL is 2.20. ----ADDITIONAL INFORMATION---- The quantification range of this assay is 22 to 100,000,000 IU/mL (1.34 log to 8.00 log IU/mL). Testing was performed using the chari BKV test ([employer] Blood (Blood, Venous) 03/10/2024 7:43 AM CDT 03/11/2024 7:17 AM CDT Juan Grier APRN, C.N.P., M.S.N. LAB MICROBIOLOGY - BLOOD ORDERABLES Performing Organization Address [facility] Co de Phone Number [facility] [address] [place] [address] [facility] [address] [place] [address] * CMV DNA Detect / Quant, Plasma (03/10/2024 7:43 AM CDT) Only the most recent of3 resultswithin the time period is included. [facility] CMV DNA Detect/Quant, P Undetected Undetected IU/mL 03/11/2024 1:29 PM CDT [facility] Comment: Result in log IU/mL is Undetected. ----ADDITIONAL INFORMATION---- The quantification range of this assay is 35 to 10,000,000 IU/mL (1.54 log to 7.00 log IU/mL). Testing was performed using the chari CMV test ([employer] Blood (Blood, Venous) 03/10/2024 7:43 AM CDT 03/11/2024 7:17 AM CDT Angelica Hutchins M.D. LAB MICROBIOLOG Y - BLOOD ORDERABLES Performing Organization Address [facility] Co de Phone Number [facility] [address] [place] [address] [facility] [address] [place] [place] [address] * MR Thoracic Spine without and with [...] of demyelinating disease involving the thoracic cord. B. Rubio Bass M.D. [facility] MRI PROCEDURES * Dipstick, Urine (02/21/2024 3:35 [...] LAB URINE ORDERA BLES Performing Organization Address [facility] de Phone Number [facility] [address] [place] [address], [facility] [address] [place] [address] * Microscopic Automated (02/21/2024 3:35 PM CDT) Microscopy Normal 02/21/2024 4:05 PM CDT [facility]TL RBC None Seen <3 /hpf 02/21/2024 4:05 PM CDT DTL WBC None Seen /hpf 02/21/2024 4:05 PM CDT [facility] Comment: ----REFERENCE VALUE---- <4 ??(Males) <11 (Females) Urine 02/21/2024 3:35 PM CDT 02/21/2024 3:56 PM CDT Rafita Patterson P.A.-C. LAB URINE ORDERA BLES Performing Organization Address [facility] de Phone Number [facility] [address] [place] [address], [facility] [address] [place] [address] * Bacterial Culture, Aerobic + Susceptibility, Urine (02/21/2024 3:35 PM CDT) Only the most recent of5 resultswithin the time period is included. Urine Culture No growth after 1 day of incubation. 02/22/2024 12:27 PM CDT DTL Urine (Urine, Midstream) 02/21/2024 3:35 PM CDT 02/21/2024 4:41 PM CDT Comment:Specimen Source Site : Urine Rafita Patterson P.A.-C. LAB MICROBIOLOGY - GENERAL ORDERABLES Performing Organization Address [facility] Co de Phone Number [facility] [address] [place], [place] [phone] [place] [address] [address] [place] [address] * pH, Urine (02/21/2024 3:35 PM CDT) Pathologist [facility] pH, U 5.2 4.5 - 8.0 02/21/2024 4:5 4 PM CDT DTL Urine 02/21/2024 3:35 PM CDT 02/21/2024 3:56 PM CDT Rafita Patterson P.A.-C. LAB URINE ORDERA BLES Performing Organization Address [facility] Co de Phone Number [facility] [address] [place], [place] [phone] [place] [address] [address] [place] [address] * Osmolality, Urine (02/21/2024 3:35 PM CDT) Pathologist [facility] Osmolality, U 678 150 - 1150 mOsm/kg 02/21/2024 4:54 PM CDT DT Urine 02/21/2024 3:35 PM CDT 02/21/2024 3:56 PM CDT Rafita Patterson P.A.-C. LAB URINE ORDERA BLES Performing Organization Address City/[facility] Co de Phone Number [facility] [address] [place], [place] [phone] [place] [address] [address] [place] [address] * Urinalysis, with Microscopic: Urine, Midstream (02/21/2024 [...] Rafita Patterson P.A.-C. LAB URINE ORDERA BLES [facility] [address] [place] [address], [facility] DTL [facility] [address] [place] [address] * MR Cervical Spine without and with [...] spondylosis, primarily at C5-6. Rafita Patterson P.A.-C. [facility] MRI PROCEDUR ES * MR Brain without [...] spondylosis, primarily at C5-6. Rafita Patterson P.A.-C. [facility] MRI PROCEDUR ES * Influenza A, B, RSV, PCR, Rapid (02/21/2024 2:33 PM CDT) Influenza A, PCR, Rapid, V Negative Negative 02/21/2024 3:04 PM CDT [facility] Influ[facility] B, PCR, Rapid, V Negative Negative 02/21/2024 3:04 PM CDT [facility] Resp Synctial Virus, PCR, Rapid Negative Negative 02/21/2024 3:04 PM CDT [facility] Specimen Source Swab, Nasopharynx 02/21/2024 3:03 PM CDT [facility] Swab (Nasopharynx) 02/21/2024 2:33 PM CDT 02/21/2024 2:39 PM CDT Rafita Patterson P.A.-C. LAB MICROBIOLOGY - GENERAL ORDERABLES [facility] [address] [place] [address], [facility] [address] [place] [address] * SARS Coronavirus 2, PCR Rapid Symptomatic (02/21/2024 2:33 PM CDT) Pathologist [facility] SARS CoV-2, PCR, Rapid, V Undetected Undetected 02/21/2024 3:[address] [facility] Comment: ----ADDITIONAL INFORMATION---- This RT-PCR test was performed using the [employer] SARS-CoV-2 and Influenza A/B Reagent assay from [employer], which has received Emergency Use Authorization(EUA) by the U.S. Food and Drug Administration. Fact sheets for this Emergency Use Authorization (EUA) assay can be found at the following links: For Healthcare Providers: https://www.fda.gov/media/651358/download For Patients: https://www.fda.gov/media/563489/download SARS Coronavirus 2, Rapid, Source Swab, Nasopharynx 02/21/2024 2:39 PM CDT [facility] Swab (Nasopharynx) 02/21/2024 2:33 PM CDT 02/21/2024 2:39 PM CDT Rafita Patterson P.A.-C. LAB MICROBIOLOGY - GENERAL ORDERABLES [facility] [address] [place], [place] [phone] [place] [address] [address] [place] [address] * Troponin T, 2h/6h, 5th Gen (02/21/2024 [...] PM CDT 02/21/2024 12:36 PM CDT Narrative [facility] - 02/21/2024 1:39 PM CDT Specimen Information: Specimen ID: [id number] Specimen Type: Blood Specimen Collection Start Date: 02/21/2024 12:20 PM Specimen Received Date: 02/21/2024 12:36 PM Specimen ID: [id number] Specimen Type: Blood Rubio Reyes P.A.-C. LAB BLOOD TROPONIN [facility] [address] [place] [address], [facility] [address] [place] [address] * DX Shoulder Left 2+ Views (02/21/2024 [...] rotator cuff arthropathy. Presumedgranuloma, left apex. Rubio Jonathan Reyes P.A.-C. IMG DIAGNOSTIC LESLY GING PROCEDURES [...] Baseline, 5th gen (02/21/2024 11:27 AM CDT) Troponin T, Baseline, 5th gen 9 <=10 ng/L 02/21/2024 11:48 AM CDT [facility] Blood (Blood, Venous) 02/21/2024 11:27 AM CDT 02/21/2024 11:31 AM CDT Rubio Reyes P.A.-C. LAB BLOOD TROPONIN [facility] [address] [place] [address], [facility] [address] [place] [address] * Hepatic Function Panel (02/21/2024 11:27 AM [...] CDT Rubio Reyes P.A.-C. LAB BLOOD ADD-ON [facility] [address] [place], [place] [address] [address] [place] [address] * Thyroid Function [place] (02/21/2024 11:27 AM CDT) Pathologist [facility] TSH, Sensitive 3.2 0.3 - 4.2 mIU/L 02/21/2024 12:15 PM CDT DT Blood (Blood, Venous) 02/21/2024 11:27 AM CDT 02/21/2024 11:45 AM CDT Rubio Reyes P.A.-C. LAB BLOOD ADD-ON [facility] [address] [address] * (ABNORMAL) NT-Pro B-Type Natriuretic Peptide (BNP) (02/21/2024 11:27 AM CDT) Pathologist [facility] NT-Pro BNP 405(H) <=226 pg/mL 02/21/2024 11:[address] [facility] Comment: NT-proBNP values less than 300 pg/mL [...] CDT Rubio Reyes P.A.-C. LAB BLOOD ADD-ON [facility] [address] [place] [address], [facility] [address] [place] [address] * Prothrombin Time (PT) (02/21/2024 11:27 AM CDT) Only the most recent of3 resultswithin the time period is included. Pathologist [facility] Prothrombin Time, P 10.7 9.4 - 12.5 sec 02/21/2024 11:39 AM CDT [facility] INR 1.0 0.9 - 1.1 02/21/2024 11:39 AM CDT [facility] Comment: ----ADDITIONAL INFORMATION---- Standard intensity warfarin therapeutic range: 2.0 to 3.0 ?? High intensity warfarin therapeutic range: 2.5 to 3.5 Blood (Blood, Venous) 02/21/2024 11:27 AM CDT 02/21/2024 11:31 AM CDT Rubio Reyes P.A.-C. LAB BLOOD ADD-ON [facility] [address] [place] [address], [facility] [address] [place] [address] * (ABNORMAL) CBC with Differential, Blood (02/21/2024 11:27 AM CDT) Only the most recent of8 resultswithin the time period is included. [facility] Hemoglobin 11.3(L) 11.6 - 15.0 g/dL 02/21/2024 11:36 AM CDT [facility] Hematocrit 33.7(L) 35.5 - 44.9 % 02/21/2024 [...] - 6.45 x10(9)/L 02/21/2024 11:35 AM CDT [facility] Lymphocytes 0.48(L) 0.95 - 3.07 x10(9)/L 02/21/2024 [...] P.A.-C. LAB BLOOD ADD-ON Performing Organization Address City/[facility]/ZIP Co de Phone Number [facility] [address] [place] [phone], [facility] STMA [facility] [address] [place] [address] DHPM [facility] [address] [place] [address] * Lipase (02/21/2024 11:27 AM CDT) Lipase, S 38 13 - 60 U/L 02/21/2024 12:15 PM CDT DTL Blood (Blood, Venous) 02/21/2024 11:27 AM CDT 02/21/2024 11:45 AM CDT Rubio Reyes P.A.-C. LAB BLOOD ADD-ON [facility] [address] [place] [address], [facility] DTL [facility] [address] [place] [address] * (ABNORMAL) Basic Metabolic Panel (02/21/2024 11:27 [...] CDT Rubio Reyes P.A.-C. LAB BLOOD ADD-ON [facility] [address] [place] [address], [facility] [address] [place] [address] * ECG 12 Lead (02/21/2024 11:22 AM CDT) Ventricular Rate ECG/Min 82 BPM MUSE CO Interval 150 ms MUSE QRSD Interval 80 ms MUSE QT Interval 350 ms MUSE QTC Interval 408 ms MUSE P Seaman 38 degrees MUSE R Seaman 0 degrees MUSE T Wave Seaman 22 degrees MUSE 02/21/2024 11:2 2 AM [...] Ultrasound-guided renal allograft biopsy. NR Juan Grier APRN C.N.P., M.S.N. IMG US PROCEDURES * Renal [...] developed and its performance characteristics determined by [facility] in a manner consistent with CLIA requirements. [...] 02/13/2024 5:19 PM 02/13/2024 5:19 PM CDT [facility] Comment:REVISED RESULTS Interpretation FINAL DIAGNOSIS Kidney, transplant, [...] are no features of active antibody-mediated or H-brmu-lrcmblmk rejection. MICROSCOPIC DESCRIPTION LIGHT MICROSCOPY: ??Tissue sections [...] nephropathy: ??No Glomerular Disease (non-alloimmune): No Recurrent menominee disease: No Digital imaging was used in the diagnostic assessment of this case. 02/13/2024 5:19 PM CDT DRBX Biopsy (Kidney, Left) 02/08/2024 11:06 AM CDT Juan Grier APRN, C.N.P., M.S.N. LAB PATH RENAL ORDERABLES Performing Organization Address City/[facility]/ZIP Co de Phone Number [facility] [address] 200 [facility] [address] [place] [address] * Osmolality, Urine (02/08/2024 6:58 AM CDT) Only the most recent of2 resultswithin the time period is included. Osmolality, U 319 150 - 1150 mOsm/kg 02/08/2024 7:28 AM CDT DTL Urine 02/08/2024 6:58 AM CDT 02/08/2024 7:05 AM CDT Juan Grier APRN, C.N.P., M.S.N. LAB URINE ORDERABLES Performing Organization Address [facility] Co de Phone Number [facility] [address] DTL [facility] [address] [place] [address] * pH, Random, Urine (02/08/2024 6:58 AM CDT) Only the most recent of2 resultswithin the time period is included. pH, Random, U 6.4 4.5 - 8.0 02/08/2024 7:28 AM CDT DTL Urine 02/08/2024 6:58 AM CDT 02/08/2024 7:05 AM CDT Juan Grier APRN, C.N.P., M.S.N. LAB URINE ORDERABLES Performing Organization Address City/[facility]/ZIP Co de Phone Number [facility] [address] [place] [phone], [facility] [address] [address] * (ABNORMAL) Microscopic Manual (02/08/2024 6:58 AM [...] 6:58 AM CDT 02/08/2024 7:05 AM CDT Iain Stewart APRN.N.P., M.S.N. LAB URINE ORDERABLES [address] [address], [facility] [address] [address] * Renal Function Panel (02/08/2024 6:52 AM [...] 6:52 AM CDT 02/08/2024 7:40 AM CDT Marlena Stewart APRNNChris., M.S.N. LAB BLOOD ADD-ON [facility] [address] [place] [address], [facility] [address] [place] [address] * (ABNORMAL) Magnesium (02/08/2024 6:52 AM CDT) Only the most recent of5 resultswithin the time period is included. Magnesium, S 1.4(L) 1.7 - 2.3 mg/dL 02/08/2024 8:01 AM CDT DTL Blood (Blood, Venous) 02/08/2024 6:52 AM CDT 02/08/2024 7:40 AM CDT Iain Stewart APRN.N.Hannah., M.S.N. LAB BLOOD ADD-ON [facility] [address] [place] [address], [facility] DTL [facility] [address] [place] [address] * Tacrolimus, Trough (02/08/2024 6:48 AM CDT) Only the most recent of6 resultswithin the time period is included. Tacrolimus, Trough 8.9 5.0-15.0 (Trough) ng/mL 02/08/2024 12:58 PM CDT [facility] Comment: ----ADDITIONAL INFORMATION---- Target steady-state trough concentrations vary depending on the type of transplant, concomitant immunosuppression, clinical/institutional protocols, and time post-transplant. Results should be interpreted in conjunction with this clinical information and any physical signs/symptoms of rejection/toxicity. Testing performed by Liquid Chromatography-Tandem Mass Spectrometry (LC-MS/MS). This test was developed and its performance characteristics determined by [facility] in a manner consistent with CLIA requirements. This test has not been cleared or approved by the U.S. Food and Drug Administration. Blood (Blood, Venous) 02/08/2024 6:48 AM CDT 02/08/2024 9:22 AM CDT Juan Grier APRN, C.N.P., M.S.N. LAB BLOOD NON ADD-ON [facility] [address] [place] [address] [facility] [address] [place] [address] [place] [address] * Iron and Total Iron-Binding Capacity (02/08/2024 6:34 AM CDT) Iron 63 35 - 145 mcg/dL 02/08/2024 10:06 AM CDT DTL Total Iron Binding Capacity 262 250 - 400 mcg/dL 02/08/2024 10:06 AM CDT DTL Percent Saturation 24 14 - 50 % 02/08/2024 10:06 AM CDT DTL Blood 02/08/2024 6:34 AM CDT 02/08/2024 9:26 AM CDT Juan Grier APRN, C.N.P., M.S.N. LAB BLOOD ADD-ON Performing Organization Address City/[facility]/ZIP Co de Phone Number [facility] [address] [place] [address] * (ABNORMAL) Ferritin (02/08/2024 6:34 AM CDT) Ferritin, S 334(H) 11 - 328 mcg/L 02/08/2024 10:06 AM CDT DTL Blood (Blood, Venous) 02/08/2024 6:34 AM CDT 02/08/2024 9:26 AM CDT Juan Grier APRN, C.N.P., M.S.N. LAB BLOOD ADD-ON Performing Organization Address City/[facility] Co de Phone Number [facility] [address], [place] [id number] * Hemoglobin A1c (01/28/2024 7:34 AM LEVEL VIAL CURVATURE GAUGER) Only the most recent of2 resultswithin the time period is included. Hemoglobin A1c, B 5.1 4.2 - 5.6 % 01/28/2024 7:54 AM LEVEL VIAL CURVATURE GAUGER CNFL Blood (Blood, Venous) 01/28/2024 7:34 AM LEVEL VIAL CURVATURE GAUGER 01/28/2024 7:36 AM LEVEL VIAL CURVATURE GAUGER Kaushal Cuenca M.D. LAB BLOOD ADD-ON [facility] [address] [place] [address], [place] [facility] in [address] [address] * Phosphorus Inorganic (01/18/2024 8:13 AM LEVEL VIAL CURVATURE GAUGER) Only the most recent of4 resultswithin the time period is included. Pathologist [facility] Phosphorus (Inorganic), S 3.3 2.5 - 4.5 mg/dL 01/18/2024 9:33 AM LEVEL VIAL CURVATURE GAUGER DTL Blood (Blood, Venous) 01/18/2024 8:13 AM LEVEL VIAL CURVATURE GAUGER 01/18/2024 9:10 AM LEVEL VIAL CURVATURE GAUGER Juan Grier APRN, C.N.P., M.S.N. LAB BLOOD ADD-ON Performing Organization Address City/[facility]/ZIP Co de Phone Number [facility] [address] [place] [address], [facility] [address] [place] [address] * Bacteria / Phoebe Culture, Blood (01/15/2024 10:28 AM LEVEL VIAL CURVATURE GAUGER) Only the most recent of4 resultswithin the time period is included. [facility] Bacteria/Krista da Culture, Blood No growth after 5 day/s of incubation. 01/20/2024 11:02 AM LEVEL VIAL CURVATURE GAUGER CNGA Blood, Peripheral Draw 01/15/2024 10:28 AM LEVEL VIAL CURVATURE GAUGER 01/15/2024 10:28 AM LEVEL VIAL CURVATURE GAUGER Iain Schuster APRN.N.P., D.N.P. LAB MICROBIOLOGY - GENERAL ORDERABLES Performing Organization Address City/[facility]/ZIP Co de Phone Number [facility] [address] [place] [address], [place] CNFL [facility] in [address] [address] * (ABNORMAL) Urinalysis with Microscopic if Indicated (01/15/2024 9:55 AM LEVEL VIAL CURVATURE GAUGER) [facility] Source Midstream 01/15/2024 10:57 AM LEVEL VIAL CURVATURE GAUGER CNFL Clarity Clear Clear 01/15/2024 10:04 AM LEVEL VIAL CURVATURE GAUGER CNFL Color Yellow 01/15/2024 10:04 AM LEVEL VIAL CURVATURE GAUGER CNFL Comment: ----REFERENCE VALUE---- Colorless Yellow Danielle Blood Negative Negative 01/15/2024 10:04 AM LEVEL VIAL CURVATURE GAUGER CNFL Nitrite Negative Negative 01/15/2024 10:04 AM LEVEL VIAL CURVATURE GAUGER CNFL Leukocyte Esterase Negative Negative 01/15/2024 10:04 AM LEVEL VIAL CURVATURE GAUGER CNFL Protein 30(A) mg/dL 01/15/2024 10:04 AM LEVEL VIAL CURVATURE GAUGER CNFL Comment: ----REFERENCE VALUE---- Negative Trace Glucose 100(A) Negative mg/dL 01/15/2024 10:04 AM LEVEL VIAL CURVATURE GAUGER CNFL Ketones, QI(U) Trace(A) Negative mg/dL 01/15/2024 10:04 AM LEVEL VIAL CURVATURE GAUGER CNFL Bilirubin Small(A) Negative 01/15/2024 10:04 AM LEVEL VIAL CURVATURE GAUGER CNFL pH 5.5 5.0 - 8.0 01/15/2024 10:04 AM LEVEL VIAL CURVATURE GAUGER CNFL Specific [place]y 1.020 1.001 - 1.035 01/15/2024 10:04 AM LEVEL VIAL CURVATURE GAUGER CNFL Urobilinogen 0.2 0.2 - 1.0 mg/dL 01/15/2024 10:04 AM LEVEL VIAL CURVATURE GAUGER CNFL Urine 01/15/2024 9:55 AM LEVEL VIAL CURVATURE GAUGER 01/15/2024 10:01 AM LEVEL VIAL CURVATURE GAUGER Aldo Collier APRN, C.N.P., D.N.P. LAB URINE ORDERABLES Performing Organization Address [facility]/State/[facility] Co de Phone Number [facility] [address] [place] [address], [facility] [place] [address] * (ABNORMAL) Blood Gas, Venous, POCT, Blood (01/15/2024 9:55 AM LEVEL VIAL CURVATURE GAUGER) pH, Venous, POCT, B 7.38 7.32 - 7.43 01/15/2024 10:44 AM LEVEL VIAL CURVATURE GAUGER CNFL pCO2, Venous, POCT, B 29(L) 41 - 51 mm Hg 01/15/2024 10:44 AM LEVEL VIAL CURVATURE GAUGER CNFL pO2, Venous, POCT, B 57 Not applicable mm Hg 01/15/2024 10:44 AM LEVEL VIAL CURVATURE GAUGER CNFL HCO3, Venous, POCT, B 17 Not applicable mmol/L 01/15/2024 10:44 AM LEVEL VIAL CURVATURE GAUGER CNFL Base Excess, Venous, POCT, B -8 Not applicable mmol/L 01/15/2024 10:44 AM LEVEL VIAL CURVATURE GAUGER CNFL O2 Saturation, Venous, POCT, B 89 Not applicable % 01/15/2024 10:44 AM LEVEL VIAL CURVATURE GAUGER CNFL Sample Type, Blood Gas, POCT CATA 01/15/2024 10:44 AM LEVEL VIAL CURVATURE GAUGER CNFL Blood 01/15/2024 9:55 AM LEVEL VIAL CURVATURE GAUGER 01/15/2024 10:01 AM LEVEL VIAL CURVATURE GAUGER Aldo Collier APRN, Iain.N.P., D.N.P. LAB POCT ORDERABLES - DEVICE Performing Organization Address [facility] [place] [address], [place] [address] * (ABNORMAL) CRP (C-Reactive Protein) (01/15/2024 9:55 AM LEVEL VIAL CURVATURE GAUGER) C-Reactive Protein (CRP), P 69.3(H) <5.0 mg/L 01/15/2024 10:25 AM LEVEL VIAL CURVATURE GAUGER CNFL Blood 01/15/2024 9:55 AM LEVEL VIAL CURVATURE GAUGER 01/15/2024 10:01 AM LEVEL VIAL CURVATURE GAUGER Aldo Collier APRN, Iain.N.P., D.N.P. LAB BLOOD ADD-ON [address] [address], [facility] in [address] [address] * Lactate (01/15/2024 9:55 AM LEVEL VIAL CURVATURE GAUGER) Lactate, P 2.0 0.5 - 2.2 mmol/L 01/15/2024 10:18 AM LEVEL VIAL CURVATURE GAUGER CNFL Blood 01/15/2024 9:55 AM LEVEL VIAL CURVATURE GAUGER 01/15/2024 10:01 AM LEVEL VIAL CURVATURE GAUGER Marlena Schuster APRNNSravanthiP., D.N.P. LAB BLOOD NON ADD-ON [facility] [address] [place] [address], [facility] CNFL [facility] [place] [address] * (ABNORMAL) Comprehensive Metabolic Panel (01/15/2024 9:55 AM LEVEL VIAL CURVATURE GAUGER) Only the most recent of2 resultswithin the time period is included. Potassium, P 4.1 3.6 - 5.2 mmol/L 01/15/2024 10:25 AM LEVEL VIAL CURVATURE GAUGER CNFL Sodium, P 133(L) 135 - 145 mmol/L 01/15/2024 10:25 AM LEVEL VIAL CURVATURE GAUGER CNFL Chloride, P 102 98 - 107 mmol/L 01/15/2024 10:25 AM LEVEL VIAL CURVATURE GAUGER CNFL Bicarbonate, P 22 22 - 29 mmol/L 01/15/2024 10:25 AM LEVEL VIAL CURVATURE GAUGER CNFL Anion Gap, P 9 7 - 15 01/15/2024 10:25 AM LEVEL VIAL CURVATURE GAUGER CNFL BUN (Blood Urea Nitrogen), P 15 6 - 21 mg/dL 01/15/2024 10:25 AM LEVEL VIAL CURVATURE GAUGER CNFL Creatinine 1.08(H) 0.59 - 1.04 mg/dL 01/15/2024 10:25 AM LEVEL VIAL CURVATURE GAUGER CNFL Estimated GFR (eGFR) 60 >=60 mL/min/BS A 01/15/2024 10:25 AM LEVEL VIAL CURVATURE GAUGER CNFL Comment: Estimated GFR calculated using the 2020 CKD_EPI creatinine equation. Calcium, Total, P 8.6 8.6 - 10.0 mg/dL 01/15/2024 10:25 AM LEVEL VIAL CURVATURE GAUGER CNFL Glucose, P 190(H) 70 - 140 mg/dL 01/15/2024 10:25 AM LEVEL VIAL CURVATURE GAUGER CNFL Protein, Total, P 6.4 6.3 - 7.9 g/dL 01/15/2024 10:25 AM LEVEL VIAL CURVATURE GAUGER CNFL Albumin, P 3.6 3.5 - 5.0 g/dL 01/15/2024 10:25 AM LEVEL VIAL CURVATURE GAUGER CNFL Aspartate Aminotransferase (AST), P 19 8 - 43 U/L 01/15/2024 10:25 AM LEVEL VIAL CURVATURE GAUGER CNFL Alkaline Phosphatase, P 62 35 - 104 U/L 01/15/2024 10:25 AM LEVEL VIAL CURVATURE GAUGER CNFL Alanine Aminotransferase (ALT), P 15 7 - 45 U/L 01/15/2024 10:25 AM LEVEL VIAL CURVATURE GAUGER CNFL Bilirubin, Total, P 0.6 0.0 - 1.2 mg/dL 01/15/2024 10:25 AM LEVEL VIAL CURVATURE GAUGER CNFL Blood 01/15/2024 9:55 AM LEVEL VIAL CURVATURE GAUGER 01/15/2024 10:01 AM LEVEL VIAL CURVATURE GAUGER Aldo Collier APRN, C.N.P., D.N.P. LAB BLOOD ADD-ON [facility] [address] [place] [address], [facility] CNFL [facility] [place] [address] * Respiratory Panel, PCR, Nasopharyngeal (01/14/2024 11:25 AM LEVEL VIAL CURVATURE GAUGER) Specimen Source NASOPHARYNGEAL SWAB 01/14/2024 2:12 PM LEVEL VIAL CURVATURE GAUGER DTL Adenovirus Undetected Undetected 01/14/2024 2:12 PM LEVEL VIAL CURVATURE GAUGER DTL Coronavirus 229E Undetected Undetected 01/14/20 2:12 PM LEVEL VIAL CURVATURE GAUGER DTL Coronavirus HKU1 Undetected Undetected 01/14/20 24 2:12 PM LEVEL VIAL CURVATURE GAUGER DTL Coronavirus NL63 Undetected Undetected 01/14/20 24 2:12 PM LEVEL VIAL CURVATURE GAUGER DTL Coronavirus OC43 Undetected Undetected 01/14/20 24 2:12 PM LEVEL VIAL CURVATURE GAUGER DTL SARS Coronavirus-2 Undetected Undetected 01/14/2024 2:12 PM LEVEL VIAL CURVATURE GAUGER DTL Comment: SARS-CoV-2 RNA absent. This result does not rule out COVID-19 in the patient, as the sensitivity of the test depends on the timing of the specimen collection and the quality of the specimen. Result should be correlated with patient's history and clinical presentation. Human Metapneumovirus Undetected Undetected 01/14/2024 2:12 PM LEVEL VIAL CURVATURE GAUGER DTL Human Rhinovirus/ Enterovirus Undetected Undetected 01/14/2024 2:12 PM LEVEL VIAL CURVATURE GAUGER DTL Influenza A Undetected Undetected 01/14/2024 2:12 PM LEVEL VIAL CURVATURE GAUGER DTL Influenza B Undetected Undetected 01/14/2024 2:12 PM LEVEL VIAL CURVATURE GAUGER DTL Parainfluenza Virus 1 Undetected Undetected 01/14/2024 2:12 PM LEVEL VIAL CURVATURE GAUGER DTL Parainfluenza Virus 2 Undetected Undetected 01/14/2024 2:12 PM LEVEL VIAL CURVATURE GAUGER DTL Parainfluenza Virus 3 Undetected Undetected 01/14/2024 2:12 PM LEVEL VIAL CURVATURE GAUGER DTL Parainfluenza Virus 4 Undetected Undetected 01/14/2024 2:12 PM LEVEL VIAL CURVATURE GAUGER DTL Respiratory Syncytial Virus Undetected Undetected 01/14/2024 2:12 PM LEVEL VIAL CURVATURE GAUGER DTL Bordetella parapertussis Undetected Undetected 01/14/2024 2:12 PM LEVEL VIAL CURVATURE GAUGER DTL Bordetella pertussis Undetected Undetected 01/14/2024 2:12 PM LEVEL VIAL CURVATURE GAUGER DTL Chlamydia pneumoniae Undetected Undetected 01/14/2024 2:12 PM LEVEL VIAL CURVATURE GAUGER DTL Mycoplasma pneumoniae Undetected Undetected 01/14/2024 2:12 PM LEVEL VIAL CURVATURE GAUGER DTL Interpretation This assay is not predicted to detect SARS-coronavirus (CoV), or MERS-CoV. If SARS-CoV or MERS-CoV is suspected, coordinate testing through a local public health laboratory. 01/14/2024 2:12 PM LEVEL VIAL CURVATURE GAUGER DTL Comment: ----ADDITIONAL INFORMATION---- This assay is performed using the FDA-Cleared FilmArray Respiratory Panel 2.1 ([employer]). This assay is performed using the FilmArray Respiratory Panel 2.1 ([employer]). For testing performed at [facility] in [place], [place], performance characteristics for samples submitted in phosphate buffered saline were determined by [facility] in a manner consistent with CLIA requirements. Swab (Nasopharynx) 01/14/2024 11:25 AM LEVEL VIAL CURVATURE GAUGER 01/14/2024 11:25 AM LEVEL VIAL CURVATURE GAUGER Juan Grier APRN, C.N.P., M.S.N. LAB MICROBIOLOGY - GENERAL ORDERABLES [facility] [address] [place] [address], [facility] DTL [address] [place] [address] * Group A Streptococcus PCR, Throat (01/14/2024 11:24 AM LEVEL VIAL CURVATURE GAUGER) [facility] Group A Streptococcus PCR, Throat Negative Negative 01/14/2024 2:54 PM LEVEL VIAL CURVATURE GAUGER DTL Swab (Throat) 01/14/2024 11: 24 AM LEVEL VIAL CURVATURE GAUGER 01/14/2024 11:24 AM LEVEL VIAL CURVATURE GAUGER Marlena Stewart APRNNBev, M.S.N. LAB MICROBIOLOGY - GENERAL ORDERABLES Performing Organization Address City/[facility]/ZIP Co de Phone Number [facility] [address] [place] [address], [facility] DTO[facility] [address] [place] [address] * (ABNORMAL) BKV DNA Detection / Quantitative, Urine (01/14/2024 8:54 AM LEVEL VIAL CURVATURE GAUGER) [facility] BKV DNA Detect/Quant, U [id number] (A) Undetected IU/mL 01/14/2024 7:30 PM LEVEL VIAL CURVATURE GAUGER [facility] Comment: Result in log IU/mL is 7.11. ----ADDITIONAL INFORMATION---- The quantification range of this assay is 200 to 100,000,000 IU/mL (2.30 log to 8.00 log IU/mL). Testing was performed using the chari BKV test ([employer] Urine (Urine, Voided) 01/14/2024 8:54 AM LEVEL VIAL CURVATURE GAUGER 01/14/2024 10:20 AM LEVEL VIAL CURVATURE GAUGER Kimmy Branham M.D. LAB MICROBIOLOGY - GENERAL ORDERABLES Performing Organization Address City/[facility]/ZIP Co de Phone Number [facility] [address] [place] [address] [facility] [address] [place] [address] [place] [address] * Pancreas/Kidney Storage, Urine (01/14/2024 8:19 AM LEVEL VIAL CURVATURE GAUGER) [facility] Lake/Kid Storage, U Collected DEFAULT 01/14/2024 8:19 AM LEVEL VIAL CURVATURE GAUGER HSS Urine (Urine, Midstream) 01/14/2024 8:19 AM LEVEL VIAL CURVATURE GAUGER 01/14/2024 8:19 AM LEVEL VIAL CURVATURE GAUGER Kimmy Branham M.D. LAB URINE ORDERABL ES Performing Organization Address City/[facility] Co de Phone Number [facility] [address] [place] [address], [facility] HSS [facility] [address] [place] [address] * (ABNORMAL) Gram Stain, Urine (01/14/2024 8:19 AM LEVEL VIAL CURVATURE GAUGER) Source Urine, Urine, Midstream 01/14/2024 8:56 AM LEVEL VIAL CURVATURE GAUGER DTL Gram Stain, U Positive(A) Negative 01/14/2024 9:38 AM LEVEL VIAL CURVATURE GAUGER DTL Comment: Many Gram-positive bacilli Bacteria on epithelial cells Urine (Urine, Midstream) 01/14/2024 8:19 AM LEVEL VIAL CURVATURE GAUGER 01/14/2024 8:56 AM LEVEL VIAL CURVATURE GAUGER Kimmy Branham M.D. LAB URINE ORDERABL ES Performing Organization Address City/[facility] Co de Phone Number [facility] [address] [place] [address], [facility] DTL [facility] [address] [place] [address] * HLA Class I/II Combined cPRA, Serum (01/14/2024 8:15 AM LEVEL VIAL CURVATURE GAUGER) Class I/II Combined cPRA 60.29 Not Applicable 01/16/2024 10:38 AM LEVEL VIAL CURVATURE GAUGER DBB8 Comment: ----ADDITIONAL INFORMATION---- Calculated PRA (cPRA) [...] published by UNOS/OPTN listed here: http://optn.transplant.hrsa.gov CLIA: [id number] ??CLIA Proposal Lead Writer: LUCIEN TOMLINSON MD,PhD Combined cPRA Specificities see below 01/16/2024 10:38 AM LEVEL VIAL CURVATURE GAUGER DBB8 Comment: DQ:2 DQA:03 Blood 01/14/2024 8:15 AM LEVEL VIAL CURVATURE GAUGER 01/14/2024 10:02 AM LEVEL VIAL CURVATURE GAUGER Kimmy Branham M.D. LAB HLA ORDERABLES [facility] [address] [place] [address], [facility] DBB8 [facility] [address] [place] [address] * (ABNORMAL) Lipid Panel (01/14/2024 8:15 AM LEVEL VIAL CURVATURE GAUGER) Triglycerides 297(H) mg/dL 01/14/2024 9:30 AM LEVEL VIAL CURVATURE GAUGER DTL Comment: ----REFERENCE VALUE---- Normal: <150 mg/dL Borderline High: 150-199 mg/dL High: 200-499 mg/dL Very High: > or =500 mg/dL Cholesterol, Total 144 mg/dL 2023 9:30 AM LEVEL VIAL CURVATURE GAUGER DTL Comment: ----REFERENCE VALUE---- Desirable: < 200 mg/dL Borderline High: 200 - 239 mg/dL High: > or = 240 mg/dL Cholesterol, LDL, Calculated 55 mg/dL 01/14/2024 10:13 AM LEVEL VIAL CURVATURE GAUGER DTL Comment: ----REFERENCE VALUE---- Desirable: <100 mg/dL Above Desirable: 100-129 mg/dL Borderline High: 130-159 mg/dL High: 160-189 mg/dL Very High: >=190 mg/dL ----ADDITIONAL INFORMATION---- LDL cholesterol calculated using the Matias/NIH equation. Cholesterol, HDL, S 43(L) >=50 mg/dL 01/14/2024 10:13 AM LEVEL VIAL CURVATURE GAUGER DTL Cholesterol, Non-HDL, Calculated 101 mg/dL 01/14/2024 10:13 AM LEVEL VIAL CURVATURE GAUGER DTL Comment: ----REFERENCE VALUE---- Desirable: <130 mg/dL Above Desirable: 130-159 mg/dL Borderline High: 160-189 mg/dL High: 190-219 mg/dL Very High: > or =220 mg/dL Fasting (8 HR or more) Yes 01/14/2024 9:02 AM LEVEL VIAL CURVATURE GAUGER DTL Blood (Blood, Venous) 01/14/2024 8:15 AM LEVEL VIAL CURVATURE GAUGER 01/14/2024 9:02 AM LEVEL VIAL CURVATURE GAUGER Kimmy Branham M.D. LAB BLOOD ADD-ON Performing Organization Address [facility]/ZIP Co de Phone Number [facility] [address] [place] [address], [facility] DTL [facility] [address] [place] [address] * Lake/Kid 5cc Storage, Blood (01/14/2024 8:15 AM LEVEL VIAL CURVATURE GAUGER) Storage, Red Collected DEFAULT 01/14/2024 8:15 AM LEVEL VIAL CURVATURE GAUGER HSS Storage, ACD Collected DEFAULT 01/14/2024 8:15 AM LEVEL VIAL CURVATURE GAUGER HSS Blood (Blood, Venous) 01/14/2024 8:15 AM LEVEL VIAL CURVATURE GAUGER 01/14/2024 8:15 AM LEVEL VIAL CURVATURE GAUGER Narrative [facility] - 01/14/2024 8:15 AM LEVEL VIAL CURVATURE GAUGER Specimen Information: Specimen ID: [id number] Specimen Type: Blood Specimen Collection Start Date: 01/14/2024 ??8:15 AM Specimen Received Date: 01/14/2024 ??8:15 AM Specimen ID: [id number] Specimen Collection Start Date: 01/14/2024 ??8:15 AM Specimen Received Date: 01/14/2024 ??8:15 AM Kimmy Branham M.D. LAB BLOOD ADD-ON Performing Organization Address City/[facility]/ZIP Co de Phone Number [facility] [address] [place] [address], [facility] HSS [facility] [address] [place] [address] * Mycophenolic Acid (01/14/2024 8:15 AM LEVEL VIAL CURVATURE GAUGER) Only the most recent of4 resultswithin the time period is included. Mycophenolic Acid 2.4 1.0 - 3.5 mcg/mL 01/14/2024 5:22 PM LEVEL VIAL CURVATURE GAUGER SDSC MPA Glucuronide 38 35 - 100 mcg/mL 01/14/2024 5:22 PM LEVEL VIAL CURVATURE GAUGER SDSC Comment: ----ADDITIONAL INFORMATION---- Target steady-state trough concentrations vary depending on the type of transplant, concomitant immunosuppression, clinical/institutional protocols, and time post-transplant. Results should be interpreted in conjunction with this clinical information and any physical signs/symptoms of rejection/toxicity. Testing performed by Liquid Chromatography-Tandem Mass Spectrometry (LC-MS/MS). This test was developed and its performance characteristics determined by [facility] in a manner consistent with CLIA requirements. This test has not been cleared or approved by the U.S. Food and Drug Administration. Blood (Blood, Venous) 01/14/2024 8:15 AM LEVEL VIAL CURVATURE GAUGER 01/14/2024 1:22 PM LEVEL VIAL CURVATURE GAUGER Kimmy Branham M.D. LAB BLOOD NON ADD- ON [facility] [address] [place] [address] [facility] [address] [place] [address] [place] [place] [address] * HLA Class II SAB Antibody Screen (01/14/2024 8:15 AM LEVEL VIAL CURVATURE GAUGER) [facility] Class II SAB Overall Result Positive Not Applicable 01/16/2024 6:00 AM LEVEL VIAL CURVATURE GAUGER DBB8 Class II SAB Comment No DSA obsvd. 01/16/2024 6:00 AM LEVEL VIAL CURVATURE GAUGER DBB8 Class II SAB >=5000 MFI NONE 01/16/2024 6:00 AM LEVEL VIAL CURVATURE GAUGER DBB8 Class II SAB 9987-7050 MFI see below 01/16/2024 6:00 AM LEVEL VIAL CURVATURE GAUGER DBB8 Comment: DQ:2 DQA:03 Class II SAB 500-1999 MFI see below 01/16/2024 6:00 AM LEVEL VIAL CURVATURE GAUGER DBB8 Comment: DRw:53 DQ:8 7 DP:1 SAB DRB1 Specificity NONE 01/16/2024 6:00 AM LEVEL VIAL CURVATURE GAUGER DBB8 SAB [id number] Specificity see below 01/16/2024 6:00 AM LEVEL VIAL CURVATURE GAUGER DBB8 Comment: 53(01:03)[815], 53(01:01)[670] Format: Serologic Eq.(ACZ209 Mol. Allele)[Normalized MFI] NOTE: ??Data is displayed in descending order by Mean Fluorescence Intensity (MFI). ??Serologic equivalents can be displayed multiple times for different molecular alleles. SAB DQB1 Specificity see below 01/16/2024 6:00 AM LEVEL VIAL CURVATURE GAUGER DBB8 Comment: 2(A*05:01;B*02:01)[4571], 2(A*03:01;B*02:01)[4301], 9(A*03:01;B*03:03)[2803], 2(A*04:01;B*02:01)[2728], 2(A*02:01;B*02:01)[2355], 2(A*02:01;B*02:02)[2167], 8(A*03:03;B*03:02)[2145], 4(A*03:03;B*04:01)[2084], 8(A*03:01;B*03:02)[1818], 9(A*03:02;B*03:03)[1745], 7(A*03:01;B*03:01)[1624] Format: Serologic Eq.(DQA1;DQB1 Mol. Allele)[Normalized MFI] NOTE: ??Data is displayed in descending order by Mean Fluorescence Intensity (MFI). ??Serologic equivalents can be displayed multiple times for different molecular alleles. SAB DPB1 Specificity see below 01/16/2024 6:00 AM LEVEL VIAL CURVATURE GAUGER DBB8 Comment: 1(A*02:01;B*01:01)[999] Format: Serologic Eq.(DPA1;DPB1 Mol. Allele)[Normalized MFI] NOTE: ??Data is displayed in descending order by Mean Fluorescence Intensity (MFI). ??Serologic equivalents can be displayed multiple times for different molecular alleles. ----ADDITIONAL INFORMATION---- Method: Luminex Flow Cytometry CLIA: [id number] ??CLIA Proposal Lead Writer: LUCIEN TOMLINSON MD,PhD Blood (Blood, Venous) 01/14/2024 8:15 AM LEVEL VIAL CURVATURE GAUGER 01/14/2024 10:02 AM LEVEL VIAL CURVATURE GAUGER Kimmy Branham M.D. LAB HLA ORDERABLES Performing Organization Address [facility] Co de Phone Number [facility] [address] [place] [address], [facility] DBB8 [facility] [address] [place] [address] * HLA Class I SAB Antibody Screen (01/14/2024 8:15 AM LEVEL VIAL CURVATURE GAUGER) Class I SAB Overall Result Negative Not Applicable 01/16/2024 5:39 AM LEVEL VIAL CURVATURE GAUGER DBB8 Class I SAB Comment No DSA obsvd. 01/16/2024 5:39 AM LEVEL VIAL CURVATURE GAUGER DBB8 Class I SAB >=5000 MFI NONE 01/16/2024 5:39 AM LEVEL VIAL CURVATURE GAUGER DBB8 Class I SAB 5723-0297 MFI NONE 01/16/2024 5:39 AM LEVEL VIAL CURVATURE GAUGER DBB8 Class I SAB 500-1999 MFI NONE 01/16/2024 5:39 AM LEVEL VIAL CURVATURE GAUGER DBB8 SAB A Specificity NONE 01/16/2024 5:39 AM LEVEL VIAL CURVATURE GAUGER DBB8 SAB B Specificity NONE 01/16/2024 5:39 AM LEVEL VIAL CURVATURE GAUGER DBB8 SAB C Specificity NONE 01/16/2024 5:39 AM LEVEL VIAL CURVATURE GAUGER DBB8 Comment: ----ADDITIONAL INFORMATION---- Method: Luminex Flow Cytometry CLIA: [id number] ??CLIA Proposal Lead Writer: LUCIEN TOMLINSON MD,PhD Blood (Blood, Venous) 01/14/2024 8:15 AM LEVEL VIAL CURVATURE GAUGER 01/14/2024 10:02 AM LEVEL VIAL CURVATURE GAUGER Kimmy Branham M.D. LAB HLA ORDERABLES Performing Organization Address [facility] Co de Phone Number [facility] [address] [place] [address], [facility] [id number] [facility] [address] [place] [address] * 25-Hydroxyvitamin D2 and D3 (01/14/2024 8:15 AM LEVEL VIAL CURVATURE GAUGER) 25-Hydroxy D2 <4.0 ng/mL 01/15/2024 10:34 PM LEVEL VIAL CURVATURE GAUGER [facility] 25-Hydroxy D3 35 ng/mL 01/15/2024 10:34 PM LEVEL VIAL CURVATURE GAUGER [facility] 25-Hydroxy D Total 35 ng/mL 2023 10:34 PM LEVEL VIAL CURVATURE GAUGER [facility] Comment: ----REFERENCE VALUE---- 25-HYDROXY D TOTAL (D2+D3) Optimum levels in the healthy population are 20-50, patients with bone disease may benefit from higher levels within this range. ----ADDITIONAL INFORMATION---- This test was developed and its performance characteristics determined by [facility] in a manner consistent with CLIA requirements. This test has not been cleared or approved by the [place]. Food and Drug Administration. Blood (Blood, Venous) 01/14/2024 8:15 AM LEVEL VIAL CURVATURE GAUGER 01/14/2024 1:50 PM LEVEL VIAL CURVATURE GAUGER Kimmy Branham M.D. LAB BLOOD ADD-ON Performing Organization Address City/[facility]/ZIP Co de Phone Number [facility] [address] [place] [address] [facility] [address] [place] [address] [place] [address] * (ABNORMAL) Troponin T, 5th Generation (01/14/2024 8:15 AM LEVEL VIAL CURVATURE GAUGER) Troponin T, 5th gen 12(H) <=10 ng/L 01/14/2024 9:26 AM LEVEL VIAL CURVATURE GAUGER DT Blood (Blood, Venous) 01/14/2024 8:15 AM LEVEL VIAL CURVATURE GAUGER 01/14/2024 9:02 AM LEVEL VIAL CURVATURE GAUGER Kimmy Branham M.D. LAB BLOOD ADD-ON Performing Organization Address City/[facility]/ZIP Co de Phone Number [facility] [address] [place] [address], [facility] [address] [place] [address] * APTT (Activated Partial Thromboplastin Time) (01/14/2024 8:14 AM LEVEL VIAL CURVATURE GAUGER) Pathologist [facility] Activated Partial Thrombopl Time, P 29 25 - 37 sec 01/14/2024 9:04 AM LEVEL VIAL CURVATURE GAUGER DTL Blood (Blood, Venous) 01/14/2024 8:14 AM LEVEL VIAL CURVATURE GAUGER 01/14/2024 8:29 AM LEVEL VIAL CURVATURE GAUGER Kimmy Branham M.D. LAB BLOOD ADD-ON [facility] [address] [place] [address], [place] [facility] [address] [place] [address] * Glucose, Fasting (12/31/2023 7:48 AM LEVEL VIAL CURVATURE GAUGER) Glucose, P 86 70 - 100 mg/dL 12/31/2023 8:04 AM LEVEL VIAL CURVATURE GAUGER CNFL Last Intake 14 hr 12/31/2023 7:49 AM LEVEL VIAL CURVATURE GAUGER CNFL Blood (Blood, Venous) 12/31/2023 7:48 AM LEVEL VIAL CURVATURE GAUGER 12/31/2023 7:49 AM LEVEL VIAL CURVATURE GAUGER Sylvia Wood M.D. LAB BLOOD NON ADD-ON [address] [address], [place] [address] * Albumin, Random, Urine (12/03/2023 8:54 AM LEVEL VIAL CURVATURE GAUGER) Microalbumin 14.4 mg/L 12/03/2023 9:07 AM LEVEL VIAL CURVATURE GAUGER CNFL Creatinine 104 mg/dL 12/03/2023 9:07 AM LEVEL VIAL CURVATURE GAUGER CNFL Albumin/Creatinin e Ratio 14 <25 mg/g 12/03/2023 9:07 AM LEVEL VIAL CURVATURE GAUGER CNFL Urine (Urine, Voided) 12/03/2023 8:54 AM LEVEL VIAL CURVATURE GAUGER 12/03/2023 8:54 AM LEVEL VIAL CURVATURE GAUGER Kimmy Branham M.D. LAB URINE ORDERABL ES [address] [address], [place] [facility] [address] * HIV-1/-2 Ag and Ab Screen, Plasma (08/30/2023 2:49 PM CDT) HIV-1/-2 Ag and Ab Screen, P Negative Negative 08/30/2023 9:10 PM CDT [facility] Comment: Negative result does not rule out HIV infection. If exposure to HIV infection occurred <14 days ago, contact the laboratory to request addition of HIV-1/HIV-2 RNA detection, Plasma (HIP12). Blood (Blood, Venous) 08/30/2023 2:49 PM CDT 08/30/2023 6:00 PM CDT Cierra Bloom M.D. LAB MICROBIOLOGY - BLOOD ORDERABLES Performing Organization Address City/[facility]/ZIP Co de Phone Number [facility] [address] [place] [address] [place] [address] * HCV Ab Scrn w/Reflex to HCV PCR, Serum (08/30/2023 2:49 PM CDT) HCV Ab Screen, S Negative Negative 08/30/2023 11:01 PM CDT [facility] Comment:Rrmmth-pf-vhpsfp rat io is <1.00. Blood (Blood, Venous) 08/30/2023 2:49 PM CDT 08/30/2023 6:00 PM CDT Cierra Bloom M.D. LAB MICROBIOLOGY - BLOOD ORDERABLES [facility] [address] [place] [address] [place] [address] * Mammo Digital Screen Efren W CAD 3D(Bilateral)-Outside Mammogram (10/04/2022 8:20 AM LEVEL VIAL CURVATURE GAUGER) Narrative [facility] - 02/19/2023 4:28 PM CDT [...] System IMG BI PROCEDURES Performing Organization Address City/[facility]/ZIP Co de Phone Number [facility] NA * Optical Coherence Tomography (OCT)-Ophthalmology Image Exam (11/01/2021 2:35 PM LEVEL VIAL CURVATURE GAUGER) 11/01/2021 2:33 PM LEVEL VIAL CURVATURE GAUGER Narrative [facility] - 11/01/2021 2:53 PM LEVEL VIAL CURVATURE GAUGER This order has been created and auto-finalized to support the import of images acquired without order. The clinical documentation to support these images can be found on the encounter that produced images. Provider Not In System IMG NON RAD IMAGI NG PROCEDURES Performing Organization Address [facility] Co de Phone Number [facility] NA from Last 3 Months or Most Recently Relevant to Health Maintenance Additional Health Concerns Infection Onset Date Last Indicated Protective Environment 03/08/2023 3 Advance Directives For more information, please contact: [phone] * Full Code (Latest Code Status on File) Date Activated Date Inactivated Comments 08/30/2023 10:33 PM 09/02/2023 6:26 PM Question Answer Comments Full Code: Discussed * Full Code Date Activated Date Inactivated Comments 08/30/2023 1:04 PM 08/30/2023 10:33 PM Question Answer Comments Full Code: Discussed Care Teams Ripening Room Attendant Relationship Specialty Start Date End Date Elsewhere, Pcp PCP - General Ob/Gyn Physician 11/24/[address] [address] Laboratory Medicine 09/18/20
--- OUTSIDE RECORDS SUMMARY | 2024-03-12 05:54 | XMS_ITS ---
Author Name Unknown Organization [facility] Address [address] [place] [address] Care Team Providers Care Powerhouse Helper Name Role Phone Unavailable Unavailable Unavailable Surgery Details Not on file Complications Check Surgery Details section. Procedure Estimated Blood Loss Check Surgery Details section. Procedure Findings Check Surgery Details section. Procedure Specimens Taken Check Surgery Details section.
--- OUTSIDE RECORDS SUMMARY | 2024-03-12 05:54 | XMS_ITS | Encounter Summary ---
Author Name Unknown Organization [facility] Address [address] [place] [address] Care Team Providers Care Scooter Mechanic Name Role Phone Elsewhere, Pcp Primary Care Provider Unavailabl e Encounter Details Date Type Department Care Team (Latest Contact Info) Description 03/10/2024 7:20 AM CDT - 03/10/2024 11:59 PM CDT Hospital Encounter Department of Laboratory Medicine in [address] [phone] Juan Grier, STUART, C.N.P., M.S.N. [address] [place] [phone] Transplant Renal (HCC); High 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; Immunodeficiency Due To Drugs (HCC); Mismatch Cytomegalovirus Discharge Disposition: Home or Self Care Social History Tobacco Use Types Packs/Day Years [...] often do you attend chur ch or baptist services? 1 to 4 times per year 02/13/2023 Do you belong to any clubs o r organizations such as synagogue groups, unions, fraternal or athletic groups, or [...] Answer Date Recorded PHQ-2 Score 0 09/10/2023 [facility] - Occupational Stress [...] place to sleep or slept in a penitentiary (including now)? No 02/13/2023 Depression Answer Date [...] Sex Assigned at Female 11/13/2018 9:36 AM OPERATING MANAGER Gender Identity Female 11/13/2018 9:36 AM OPERATING MANAGER Sexual Orientation Straight 11/13/2018 9: 36 AM OPERATING MANAGER documented as of this encounter Medications at Time of Discharge Medication Sig Dispensed Refills Start Date End Date acetaminophen (TYLENOL) 500 mg tablet Take 1,000 mg by mouth every 6 (six) hours as needed for pain. alcohol swabs pads, medicated Use as needed for diabetes control 1500 each 3 09/01/2023 atorvastatin (LIPITOR) 10 mg tablet Take 1 tablet by mouth daily. 07/21/2016 blood sugar diagnostic strips Use to test blood glucose one time each day. 100 test 2 09/01/2023 08/31/2024 calcitRIOL (ROCALTROL) 0.25 mcg capsuleIndications:Tr ansplant Renal (HCC),Hyperparathyroi dism Renal Secondary (HCC) Take 1 capsule (0.25 mcg total) by mouth daily. 90 capsule 03/10/2024 06/08/2024 cholecalciferol (VITAMIN D3) 1,000 Unit tablet Take 1 tablet by mouth daily. 11/17/2016 estradioL (ESTRACE) 1 mg tablet Take 1 tablet by mouth every evening. 05/27/2018 lancets Use to test one blood glucose one time each day. 100 each 3 09/01/2023 08/31/2024 multivitamin with folic acid (One Daily Multivitamin) 400 mcg tablet Take 1 tablet by mouth daily. 100 tablet 2 08/31/2023 08/30/2024 mycophenolate (CELLCEPT) 250 mg capsule Take 2 capsules (500 mg total) by mouth 2 (two) times a day. Take medication on an empty stomach. Do not break, cut, or open capsules 360 capsule 3 01/02/2024 predniSONE (DELTASONE) 5 mg tablet Take 1 tablet (5 mg total) by mouth daily. 90 tablet 3 10/01/2023 09/30/2024 progesterone (PROMETRIUM) 200 mg capsule Take 200 mg by mouth every evening. 09/26/2021 tacrolimus (PROGRAF) 0.5 mg capsule Take 1 capsule (0.5 mg total) by mouth every morning. Take with 1 mg capsule for total of 1.5mg AM and 1mg PM 90 capsule 3 01/29/2024 tacrolimus (PROGRAF) 1 mg capsuleIndications:Tr ansplant Renal (HCC),Immunodeficienc y Due To Drugs (HCC),High 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 Take 1 capsule (1 mg total) by mouth 2 (two) times a day. Take with 0.5 mg capsule for total of 1.5mg AM and 1mg PM 180 capsule 3 01/29/2024 01/28/2025 documented as of this encounter Plan of Treatment Upcoming Encounters Date Type Department Care Team (Latest Contact Info) Description 03/17/2024 7:20 AM CDT Appointment Department of Laboratory Medicine in [address] [phone] Angelica Hutchins M.D. [address] [place] [phone] 03/24/2024 7:10 AM CDT Appointment Department of Laboratory Medicine in [address] [phone] Juan Grier, STUART, C.N.P., M.S.N. [address] [place] [phone] 03/24/2024 7:20 AM CDT Appointment Department of Laboratory Medicine in [address] [phone] Angelica Hutchins M.D. [address] [place] [phone] 04/07/2024 8:20 AM CDT Appointment Department of Laboratory Medicine in [address] [phone] Angelica Hutchins M.D. [address] [place] [phone] 04/14/2024 8:00 AM CDT Appointment Department of Laboratory Medicine in [address] [phone] Angelica Hutchins M.D. [address] [place] [phone] 04/15/2024 2:00 PM CDT Clinical Communication Virtual Review in [place], [place] 200 [place] [address] 04/17/2024 11:00 AM CDT Office Visit Department of Neurology in [place], [place] [address] [place] [phone] Wang Bass M.D. [address] [place] [phone] 04/22/2024 7:20 AM CDT Appointment Department of Laboratory Medicine in [address] [phone] Angelica Hutchins M.D. [address] [place] [phone] 04/28/2024 7:20 AM CDT Appointment Department of Laboratory Medicine in [address] [phone] Angelica Hutchins M.D. [address] [place] [phone] 04/28/2024 7:40 AM CDT Appointment Department of Laboratory Medicine in [address] [phone] Angelica Hutchins M.D. [address] [place] [phone] 05/05/2024 7:50 AM CDT Appointment Department of Laboratory Medicine in [address] [phone] Angelica Hutchins M.D. [address] [place] [phone] 05/12/2024 7:20 AM CDT Appointment Department of Laboratory Medicine in [address] [phone] Angelica Hutchins M.D. [address] [place] [phone] 05/19/2024 7:20 AM CDT Appointment Department of Laboratory Medicine in [address] [phone] Angelica Hutchins M.D. [address] [place] [phone] 05/26/2024 7:20 AM CDT Appointment Department of Laboratory Medicine in [address] [phone] Angelica Hutchins M.D. [address] [place] [phone] 05/26/2024 7:30 AM CDT Appointment Department of Laboratory Medicine in [address] [phone] Angelica Hutchins M.D. [address] [place] [phone] 06/02/2024 7:20 AM CDT Appointment Department of Laboratory Medicine in [address] [phone] Angelica Hutchins M.D. [address] [place] [phone] 06/30/2024 7:20 AM CDT Appointment Department of Laboratory Medicine in [address] [phone] Angelica Hutchins M.D. [address] [place] [phone] 06/30/2024 7:30 AM CDT Appointment Department of Laboratory Medicine in [address] [phone] Angelica Hutchins M.D. [address] [place] [phone] 07/29/2024 7:20 AM CDT Appointment Department of Laboratory Medicine in [address] [phone] Angelica Hutchins M.D. [address] [place] [phone] 07/29/2024 7:30 AM CDT Appointment Department of Laboratory Medicine in [address] [phone] Angelica Hutchins M.D. 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 ----ADDITIONAL INFORMATION---- The quantification range of this assay is 35 to 10,000,000 IU/mL (1.54 log to 7.00 log IU/mL). Testing was performed using the chari CMV test ([employer] Blood (Blood, Venous) 03/10/2024 7:43 AM CDT 03/11/2024 7:17 AM CDT Angelica Hutchins M.D. LAB MICROBIOLOG Y - BLOOD ORDERABLES Performing Organization Address [facility] de Phone Number [facility] [address] [place] [address] [facility] [address] [place] [facility] [place] [address] * (ABNORMAL) BKV DNA Detect/Quant (03/10/2024 7:43 AM CDT) Pathologist [facility] BKV DNA Detect/Quant, P 159(A) Undetected IU/mL 03/11/2024 7:45 PM CDT [facility] Comment: Result in log IU/mL is 2.20. ----ADDITIONAL INFORMATION---- The quantification range of this assay is 22 to 100,000,000 IU/mL (1.34 log to 8.00 log IU/mL). Testing was performed using the chari BKV test ([employer] Blood (Blood, Venous) 03/10/2024 7:43 AM CDT 03/11/2024 7:17 AM CDT Juan Grier APRN, C.N.P., M.S.N. LAB MICROBIOLOGY - BLOOD ORDERABLES Performing Organization Address [facility] de Phone Number [facility] [address] [place] [address] [facility] [address] [place] [facility] [place] [address] documented in this encounter Visit Diagnoses Diagnosis Transplant Renal (HCC) High 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 Immunodeficiency Due To Drugs (HCC) Mismatch Cytomegalovirus documented in this encounter Additional Health Concerns Infection Onset Date Last Indicated Resolved Time Protective Environment 03/08/2023 03/08/2023 Assessment Noted Time PHQ-9 Depression Total Score: 1 11/23/20 19 7:04 PM OPERATING MANAGER documented as of this encounter Care Teams Scooter Mechanic Relationship Specialty Start Date End Date Elsewhere, Pcp PCP - General Hematologist 11/24/[address] [address] Laboratory Medicine 09/18/20 documented as of this encounter
--- OUTSIDE RECORDS SUMMARY | 2024-03-12 05:55 | XMS_ITS | Encounter Summary ---
Author Name Unknown Organization [facility] Address [address] [place] [address] Care Team Providers Care Recreational Facilities Motel Manager Name Role Phone Elsewhere, Pcp Primary Care Provider Unavailabl e Encounter Details Date Type Department Care Team (Latest Contact Info) Description 02/20/2024 Orders Only Joon Pe[facility] [place] [facility] in [place], [place] [address] [place] [phone] Eli Infante, R.N. Mismatch Cytomegalovirus (Primary Dx); High 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; Transplant Renal (HCC); Immunodeficiency Due To Drugs (HCC) Social History Tobacco Use Types Packs/Day [...] often do you attend chur ch or samaritan services? 1 to 4 times per year 02/13/2023 Do you belong to any clubs o r organizations such as worship groups, unions, fraternal or athletic groups, or [...] Answer Date Recorded PHQ-2 Score 0 09/10/2023 [facility] - Occupational Stress [...] place to sleep or slept in a alf (including now)? No 02/13/2023 Depression Answer Date [...] Sex Assigned at Female 11/13/2018 9:36 AM PLATE GLASS INSTALLER Gender Identity Female 11/13/2018 9:36 AM PLATE GLASS INSTALLER Sexual Orientation Straight 11/13/2018 9: 36 AM PLATE GLASS INSTALLER documented as of this encounter Plan of Treatment Upcoming Encounters Date Type Department Care Team (Latest Contact Info) Description 03/17/2024 7:20 AM CDT Appointment Department of Laboratory Medicine in [address] [phone] Angelica Hutchins M.D. [address] [phone] 03/24/2024 7:10 AM CDT Appointment Department of Laboratory Medicine in [address] [phone] Juan Grier, STUART, C.N.P., M.S.N. [address] [phone] 03/24/2024 7:20 AM CDT Appointment Department of Laboratory Medicine in [address] [phone] Angelica Hutchins M.D. [address] [phone] 04/07/2024 8:20 AM CDT Appointment Department of Laboratory Medicine in [address] [phone] Angelica Hutchins M.D. [address] [place] [phone] 04/14/2024 8:00 AM CDT Appointment Department of Laboratory Medicine in [address] [phone] Angelica Hutchins M.D. [address] [place] [phone] 04/15/2024 2:00 PM CDT Clinical Communication Virtual Review in [address] [address] 04/17/2024 11:00 AM CDT Office Visit Department of Neurology in [place], [place] [address] [place] [phone] Wang Bass M.D. [address] [place] [phone] 04/22/2024 7:20 AM CDT Appointment Department of Laboratory Medicine in [address] [phone] Angelica Hutchins M.D. [address] [place] [phone] 04/28/2024 7:20 AM CDT Appointment Department of Laboratory Medicine in [address] [phone] Angelica Hutchins M.D. [address] [place] [phone] 04/28/2024 7:40 AM CDT Appointment Department of Laboratory Medicine in [address] [phone] Angelica Hutchins M.D. [address] [place] [phone] 05/05/2024 7:50 AM CDT Appointment Department of Laboratory Medicine in [address] [phone] Angelica Hutchins M.D. [address] [place] [phone] 05/12/2024 7:20 AM CDT Appointment Department of Laboratory Medicine in [address] [phone] Angelica Hutchins M.D. [address] [phone] 05/19/2024 7:20 AM CDT Appointment Department of Laboratory Medicine in [address] [phone] Angelica Hutchins M.D. [address] [phone] 05/26/2024 7:20 AM CDT Appointment Department of Laboratory Medicine in [address] [phone] Angelica Hutchins M.D. [address] [phone] 05/26/2024 7:30 AM CDT Appointment Department of Laboratory Medicine in [address] [phone] Angelica Hutchins M.D. [address] [phone] 06/02/2024 7:20 AM CDT Appointment Department of Laboratory Medicine in [address] [phone] Angelica Hutchins M.D. [address] [phone] 06/30/2024 7:20 AM CDT Appointment Department of Laboratory Medicine in [address] [phone] Angelica Hutchins M.D. [address] [place] [phone] 06/30/2024 7:30 AM CDT Appointment Department of Laboratory Medicine in [address] [phone] Angelica Hutchins M.D. [address] [place] [phone] 07/29/2024 7:20 AM CDT Appointment Department of Laboratory Medicine in [address] [phone] Angelica Hutchins M.D. [address] [place] [phone] 07/29/2024 7:30 AM CDT Appointment Department of Laboratory Medicine in [address] [phone] Angelica Hutchins M.D. 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) monthly Jackson for 10 Occurrences starting 02/20/2024 until 05/22/2025 CBC with Differential, Blood Lab Routine Mismatch Cytomegalovirus High 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) monthly Jackson for 10 Occurrences starting 02/20/2024 until 05/22/2025 BKV DNA Detect/Quant Microbiology Routine Mismatch Cytomegalovirus High 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) monthly Jackson for 10 Occurrences starting 02/20/2024 until 05/22/2025 Albumin, Random, Urine Lab Routine Mismatch Cytomegalovirus High 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 ----ADDITIONAL INFORMATION---- The quantification range of this assay is 35 to 10,000,000 IU/mL (1.54 log to 7.00 log IU/mL). Testing was performed using the chari CMV test ([employer] Blood (Blood, Venous) 03/10/2024 7:43 AM CDT 03/11/2024 7:17 AM CDT Angelica Hutchins M.D. LAB MICROBIOLOG Y - BLOOD ORDERABLES [facility] [address] [place] [address] [facility] [address] [place] [address] 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
--- OUTSIDE RECORDS SUMMARY | 2024-03-12 05:55 | XMS_ITS | Encounter Summary ---
Author Name Unknown Organization [facility] Address [address] [place] [address] Care Team Providers Care Stone Rigger Name Role Phone Elsewhere, Pcp Primary Care Provider Unavailabl e Reason for Referral * MRI/CAT/PET Scan (Routine) - Closed Specialty Diagnoses / Procedures Referred By Benedicto tan Referred To Contact Radiology Diagnoses Demyelinating Disease Central Nervous System (HCC) Procedures MR Thoracic Spine without and with IV Contrast Wang Bass M.D. [address] [place] [address] [facility] Referral ID Status Reason Start Date Expiration Date Visits Re quested Visits Authorized [id number] Closed 02/27/2024 03/28/2024 1 1 Reason for Visit * MRI/CAT/PET Scan (Routine) - Closed Specialty Diagnoses / Procedures Referred By Benedicto tan Referred To Contact Radiology Diagnoses Demyelinating Disease Central Nervous System (HCC) Procedures MR Thoracic Spine without and with IV Contrast Wang Bass M.D. [address] [place] [address] [facility] Referral ID Status Reason Start Date Expiration Date Visits Re quested Visits Authorized [id number] Closed 02/27/2024 03/28/2024 1 1 Encounter Details Date Type Department Care Team (Latest Contact Info) Description 03/04/2024 6:59 PM CDT - 03/04/2024 11:59 PM CDT Hospital Encounter Department of Radiology, [facility] in [place], [place] [address] [place] [address] Wang Bass M.D. [address] [place] [address] Demyelinating Disease Central Nervous System (HCC) Discharge Disposition: Home or Self Care Social [...] often do you attend chur ch or catholic services? 1 to 4 times per year 02/13/2023 Do you belong to any clubs o r organizations such as hindu groups, unions, fraternal or athletic groups, or [...] Answer Date Recorded PHQ-2 Score 0 09/10/2023 [facility] - Occupational [...] Sex Assigned at Female 11/13/2018 9:36 AM RN DISEASE MANAGEMENT Gender Identity Female 11/13/2018 9:36 AM RN DISEASE MANAGEMENT Sexual Orientation Straight 11/13/2018 9: 36 AM RN DISEASE MANAGEMENT documented as of this encounter Last Filed Vital Signs Vital Sign Reading Time Taken Comments Blood Pressure - - Pulse - - Temperature - - Respiratory Rate - - Oxygen Saturation - - Inhaled Oxygen Concentration - - Weight - - Height 160 cm (5' 3) 03/04/2024 7:18 PM CDT Body Mass Index - - documented in this encounter Medications at Time of Discharge [...] each day. 100 test 2 09/01/2023 08/31/2024 cholecalciferol (VITAMIN D3) 1,000 Unit tablet Take [...] 1mg PM 180 capsule 3 01/29/2024 01/28/2025 calcitRIOL (ROCALTROL) 0.25 mcg capsule Take 1 capsule (0.25 mcg total) by mouth daily. 30 capsule 09/03/2023 03/10/2024 documented as of this encounter Miscellaneous Notes * Result Encounter Note - Wang Bass M.D. - 03/05/2024 11:19 AM CDT Mrs. Santos I received note that an MRI scan thoracic spine was done and was normal with no evidence of multiple sclerosis or demyelinating disease there. This is great news for you, I also see that imaging was done earlier than that which looks stable as well. I very much look forward to meeting with you later in March as currently scheduled to discuss further. Respectfully, Rubio Bass documented in this encounter Plan of Treatment Upcoming Encounters Date Type Department Care Team (Latest Contact Info) Description 03/17/2024 7:20 AM CDT Appointment Department of Laboratory Medicine in [address] [address] Angelica Hutchins M.D. [address] [place] [phone] 03/24/2024 7:10 AM CDT Appointment Department of Laboratory Medicine in [address] [phone] Juan Grier, STUART, C.N.P., M.S.N. [address] [place] [phone] 03/24/2024 7:20 AM CDT Appointment Department of Laboratory Medicine in [address] [address] Angelica Hutchins M.D. [address] [place] [phone] 04/07/2024 8:20 AM CDT Appointment Department of Laboratory Medicine in [address] [address] nAgelica Hutchins M.D. [address] [place] [phone] 04/14/2024 8:00 AM CDT Appointment Department of Laboratory Medicine in [address] [address] Angelica Hutchins M.D. [address] [place] [phone] 04/15/2024 2:00 PM CDT Clinical Communication Virtual Review in [place], [place] [address] [place] [address] 04/17/2024 11:00 AM CDT Office Visit Department of Neurology in [place], [place] [address] [place] [phone] Wang Bass M.D. [address] [place] [phone] 04/22/2024 7:20 AM CDT Appointment Department of Laboratory Medicine in [address] [address] Angelica Hutchins M.D. [address] [place] [phone] 04/28/2024 7:20 AM CDT Appointment Department of Laboratory Medicine in [address] [address] Angelica Hutchins M.D. [address] [place] [phone] 04/28/2024 7:40 AM CDT Appointment Department of Laboratory Medicine in [address] [address] Angelica Hutchins M.D. [address] [place] [phone] 05/05/2024 7:50 AM CDT Appointment Department of Laboratory Medicine in [address] [address] Angelica Hutchins M.D. [address] [place] [phone] 05/12/2024 7:20 AM CDT Appointment Department of Laboratory Medicine in [address] [address] Angelica Hutchins M.D. [address] [place] [phone] 05/19/2024 7:20 AM CDT Appointment Department of Laboratory Medicine in [address] [address] Angelica Hutchins M.D. [address] [place] [phone] 05/26/2024 7:20 AM CDT Appointment Department of Laboratory Medicine in [address] [address] Angelica Hutchins M.D. [address] [place] [phone] 05/26/2024 7:30 AM CDT Appointment Department of Laboratory Medicine in [address] [address] Angelica Hutchins M.D. [address] [place] [phone] 06/02/2024 7:20 AM CDT Appointment Department of Laboratory Medicine in [address] [address] Angelica Hutchins M.D. [address] [place] [phone] 06/30/2024 7:20 AM CDT Appointment Department of Laboratory Medicine in [address] [address] Angelica Hutchins M.D. [address] [place] [phone] 06/30/2024 7:30 AM CDT Appointment Department of Laboratory Medicine in [address] [address] Angelica Hutchins M.D. [address] [place] [phone] 07/29/2024 7:20 AM CDT Appointment Department of Laboratory Medicine in [address] [address] Angelica Hutchins M.D. [address] [place] [phone] 07/29/2024 7:30 AM CDT Appointment Department of Laboratory Medicine in [address] [address] Angelica Hutchins M.D. [address] [place] [phone] documented as of this encounter Procedures Procedure Name Priority Date/Time Associated Diagnosis Comments MR THORACIC SPINE WITHOUT AND WITH IV CONTRAST RAD - Routine (most inpatients and all outpatients) 03/04/2024 7:56 PM CDT Demyelinating Disease Central Nervous System (HCC) documented in this encounter Results * MR Thoracic Spine without and with [...] involving the thoracic cord. Wang Bass M.D. [facility] MRI PROCEDURES documented in this encounter Visit Diagnoses Diagnosis Demyelinating Disease Central Nervous System (HCC) documented in this encounter Administered Medications Inactive Administered Medications - up to 3 most recent administrations Medication Order MAR Action Action Date Dose Rate Site gadobutrol injection 0.01-30 mL (GADAVIST) 0.01-30 mL, intravenous, Once in imaging, contrast, Starting on Sun03/04/24 at 1914, For 1 dose, Imaging Protocol Orders, Dose per Radiant Medication Guidelines Intrathecal doses greater than 0.25 mL not recommended. Given 03/04/2024 7:50 PM CDT 7 mL documented in this encounter Additional Health Concerns Infection Onset Date Last Indicated Resolved Time Protective Environment 03/08/2023 03/08/2023 Assessment Noted Time PHQ-9 Depression Total Score: 1 11/23/20 19 7:04 PM RN DISEASE MANAGEMENT documented as of this encounter Care Teams Stone Rigger Relationship Specialty Start Date End Date Elsewhere, Pcp PCP - General Retirement Consultant 11/24/19 [place] [phone] Laboratory Medicine 09/18/20 documented as of this encounter
--- OUTSIDE RECORDS SUMMARY | 2024-03-12 05:55 | XMS_ITS | Encounter Summary ---
Author Name Unknown Organization [facility] Address [address] [place] [address] Care Team Providers Care Bridges And Buildings Supervisor Name Role Phone Elsewhere, Pcp Primary Care Provider Unavailabl e Reason for Visit * Reason Onset Date Comments Follow-up 02/12/2024 Post procedure f ollow up phone call. Encounter Details Date Type Department Care Team (Latest Contact Info) Description 02/12/2024 Clinical Communication Department of Radiology, [facility], in [place], [place] [address] [place] [address] Grant Mcallister M.D. [address] [place] [address] Follow-up (Post procedure follow up phone call.) Social History Tobacco Use Types Packs/Day Years [...] often do you attend chur ch or shinto services? 1 to 4 times per year 02/13/2023 Do you belong to any clubs o r organizations such as mormon groups, unions, fraternal or athletic groups, or [...] Answer Date Recorded PHQ-2 Score 0 09/10/2023 [facility] Occupat ional Health - Occupational Stress [...] place to sleep or slept in a jail (including now)? No 02/13/2023 Depression Answer Date [...] Sex Assigned at Female 11/13/2018 9:36 AM GRAIN COMBINE DRIVER Gender Identity Female 11/13/2018 9:36 AM GRAIN COMBINE DRIVER Sexual Orientation Straight 11/13/2018 9: 36 AM GRAIN COMBINE DRIVER documented as of this encounter Miscellaneous Notes * Telephone Encounter - Simi Rene R.N. - 02/12/2024 8:23 AM CDT SUBJECTIVE CHIEF COMPLAINT / REASON FOR CALL Follow-up (Post procedure follow up phone call.) Information Discussed Post procedure phone call information. Biopsy or procedure performed Kidney Date of procedure: 02/08/2024 Performing practitioner: Dr. Mcallister Emergent signs and symptoms: Denies emergent signs or symptoms including continuous bleeding from the biopsy/procedure site, new or worsening problems with shortness of breath, or pain at the biopsy/procedure site greater or equal to 6. Non emergent signs/symptoms: Denies non-emergent signs/symptoms including new or increasing rednessor tenderness surrounding the biopsy/procedure site, pain at biopsy/procedure site is unacceptable compared with pre-procedure pain, abnormal warmth/heating from site, new or increasing swelling, andoral temp greater than 100.4 F Other Medical Problems unrelated to biopsy: Pt denies other problems unrelated to biopsy Pt Disposition: Pt denies any biopsy complications. Pt instructed to call primary care for additional concerns PLAN Disposition/Recommendation: self-care is appropriate at this time, patient encouraged to call back with questions Information/Education: patient/caller able to teach back Caller agreeable to plan of care: yes The following references were used: nursing clinical judgement documented in this encounter Plan of Treatment Upcoming Encounters Date Type Department Care Team (Latest Contact Info) Description 03/17/2024 7:20 AM CDT Appointment Department of Laboratory Medicine in [address] [phone] Angelica Hutchins M.D. [address] [place] [phone] 03/24/2024 7:10 AM CDT Appointment Department of Laboratory Medicine in [address] [phone] Juan Grier, STUART, C.N.P., M.S.N. [address] [place] [phone] 03/24/2024 7:20 AM CDT Appointment Department of Laboratory Medicine in [address] [phone] Angelica Hutchins M.D. [address] [place] [phone] 04/07/2024 8:20 AM CDT Appointment Department of Laboratory Medicine in [address] [phone] Angelica Hutchins M.D. [address] [place] [phone] 04/14/2024 8:00 AM CDT Appointment Department of Laboratory Medicine in [address] [address] Angelica Hutchins M.D. [address] [place] [phone] 04/15/2024 2:00 PM CDT Clinical Communication Virtual Review in [address] [address] 04/17/2024 11:00 AM CDT Office Visit Department of Neurology in [address] [address] Wang Bass M.D. [address] [place] [phone] 04/22/2024 7:20 AM CDT Appointment Department of Laboratory Medicine in [address] [address] Angelica Hutchins M.D. [address] [place] [phone] 04/28/2024 7:20 AM CDT Appointment Department of Laboratory Medicine in [address] [address] Angelica Hutchins M.D. [address] [place] [phone] 04/28/2024 7:40 AM CDT Appointment Department of Laboratory Medicine in [address] [address] Angelica Hutchins M.D. [address] [place] [phone] 05/05/2024 7:50 AM CDT Appointment Department of Laboratory Medicine in [address] [address] Angelica Hutchins M.D. [address] [place] [phone] 05/12/2024 7:20 AM CDT Appointment Department of Laboratory Medicine in [address] [address] Angelica Hutchins M.D. [address] [place] [phone] 05/19/2024 7:20 AM CDT Appointment Department of Laboratory Medicine in [address] [address] Angelica Hutchins M.D. [address] [place] [phone] 05/26/2024 7:20 AM CDT Appointment Department of Laboratory Medicine in [address] [phone] Angelica Hutchins M.D. [address] [place] [phone] 05/26/2024 7:30 AM CDT Appointment Department of Laboratory Medicine in [address] [address] Angelica Hutchins M.D. [address] [place] [phone] 06/02/2024 7:20 AM CDT Appointment Department of Laboratory Medicine in [address] [address] Angelica Hutchins M.D. [address] [place] [phone] 06/30/2024 7:20 AM CDT Appointment Department of Laboratory Medicine in [address] [phone] Angelica Hutchins M.D. [address] [place] [phone] 06/30/2024 7:30 AM CDT Appointment Department of Laboratory Medicine in [address] [address] Angelica Hutchins M.D. [address] [place] [phone] 07/29/2024 7:20 AM CDT Appointment Department of Laboratory Medicine in [address] [address] Angelica Hutchins M.D. [address] [place] [address] 07/29/2024 7:30 AM CDT Appointment Department of Laboratory Medicine in [address] [phone] Angelica Hutchins M.D. [address] [place] [phone] documented as of this encounter Visit Diagnoses Not on filedocumented in this encounter Additional Health Concerns Infection Onset Date Last Indicated Resolved Time Protective Environment 03/08/2023 03/08/2023 Assessment Noted Time PHQ-9 Depression Total Score: 1 11/23/20 19 7:04 PM GRAIN COMBINE DRIVER documented as of this encounter Care Teams Bridges And Buildings Supervisor Relationship Specialty Start Date End Date Elsewhere, Pcp PCP - General Air Export Agent 11/24/[address] [address] Laboratory Medicine 09/18/20 documented as of this encounter
--- OUTSIDE RECORDS SUMMARY | 2024-03-12 05:55 | XMS_ITS | Encounter Summary ---
Author Name Unknown Organization [facility] Address [address] [place] [address] Care Team Providers Care Airline Pilot Flight Instructor Name Role Phone Elsewhere, Pcp Primary Care Provider Unavailabl e Reason for Visit * Transplant (Routine) - Closed Specialty Diagnoses / Procedures Referred By Contreanna t Referred To Contact Transplant Juan Grier APRN, C.N.P., M.S.N. [address] [place] [phone] [facility] Referral ID Status Reason Start Date Expiration Date Visits Re quested Visits Authorized [id number] Closed 01/15/2024 07/16/2025 1 1 Encounter Details Date Type Department Care Team (Latest Contact Info) Description 02/08/2024 8:30 AM CDT Office Visit Joon millan [facility] for Transplantation and Clinical Regeneration in [place], [place] [address] [place] [phone] Juan Grier APRN, C.N.P., M.S.N. [address] [place] [phone] Ricci Collins M.D. [address] [place] [phone] Transplant Renal (HCC) (Primary Dx); Hypertension Essential Primary; Diabetes Mellitus 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); Immunodeficiency Due To Drugs (HCC); Lupus Systemic Erythematosus (HCC); Hypomagnesemia; Edema Peripheral Social History Tobacco Use Types Packs/Day Years [...] week 02/13/2023 How often do you attend [facility] or [facility] services? 1 to 4 times per year 02/13/2023 Do you belong to any clubs o r organizations such as latter-day groups, unions, fraternal or athletic groups, or [...] Answer Date Recorded PHQ-2 Score 0 09/10/2023 [facility] - Occupational Stress Questionnaire Answer Date Recorded [...] place to sleep or slept in a residential (including now)? No 02/13/2023 Depression Answer Date [...] Sex Assigned at Female 11/13/2018 9:36 AM SLACKMAN Gender Identity Female 11/13/2018 9:36 AM SLACKMAN Sexual Orientation Straight 11/13/2018 9: 36 AM SLACKMAN documented as of this encounter Last Filed Vital Signs Vital Sign Reading Time Taken Comments Blood Pressure 159/92 02/08/2024 8:34 AM CDT Pulse 78 02/08/2024 8:34 AM CDT Temperature 36.8 ??C (98.3 ??F) 02/08/2024 8:34 AM CD T Respiratory Rate - - Oxygen Saturation - - Inhaled Oxygen Concentration - - Weight 73.4 kg (161 lb 13.1 oz) 02/08/2024 8:34 AM CDT Height 157.5 cm (5' 2.01) 02/08/2024 8:34 AM CD T Body Mass Index 29.59 02/08/2024 8:34 AM CDT documented in this encounter Progress Notes * Juan Grier, STUART, C.N.P., M.S.N. - 02/08/2024 8:30 AM CDT Kidney-Pancreas 4 month Transplant Evaluation: SUBJECTIVE Holley Santos is a 59 y.o. 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 Santos is a 59 y.o. 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 Post transplant hospital course was uncomplicated. her renal allograft function was immediate. Patient was dismissed from the clinic on 09/14 with a creatinine of 1.06 mg/dl and iothalamate clearance of 88 ml/min. Patient's creatinine after dismissing from the clinic has ranged 0.7-0.8 mg/dl. Patient's past medical history is significant for multiple sclerosis, squamous cell carcinoma, basal cell carcinoma, osteonecrosis s/p bilateral knee and hip replacements, recurrent UTI, HTN, hyperlipidemia, secondary hyperparathyroidism, and chronic leukocytosis and anemia. Ms. Santos returns today for her four month protocol biopsy. She was seen for her four month visit on 01/14/2024 however was found to be febrile and her biopsy was cancelled. Infectious work-up including chest x-ray, blood/urine culture, and respiratory viral panel came back unremarkable. Patient's fever subsequently resolved. Today patient reports feeling improved overall. She is afebrile. She reports increase in energy. She does report noticing bilateral lower extremity edema over the last week. This was after her [facility]. She reports her leg to feel tight but not painful. Patient otherwise denies chest pain, SOB, palpitation, fever, chills, nausea, or vomiting. OBJECTIVE BP (!) 159/92 (BP Location: Right arm, Patient Position: Sitting, Cuff Size: Regular) Pulse 78 Temp 36.8 ??C (Tympanic) Ht 157.5 cm Wt 73.4 kg BMI 29.59 kg/m?? Estimated body mass index is 29.59 kg/m?? as calculated from the following: Height as of this encounter: 157.5 cm. Weight as of this encounter: 73.4 kg. General Appearance: Alert, cooperative, no distress Lungs: Clear to auscultation bilaterally, respirations unlabored Heart: Regular rate and rhythm, S1 and S2 normal, no murmur, rub or gallop Abdomen: Soft, non-tender, bowel sounds active all four quadrants, no masses, no organomegaly. Kidney allograft non tender. Extremities: Bilateral lower extremity edema R>L +2. 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 Patient has had low level BK viremia with last level of 163 on 01/28/2024. Repeat levels are pending today. Patient is maintained on cellcept (50 mg BID), tacrolimus, and prednisone for immunosuppression. Patient is scheduled for her four month protocol biopsy today. She is not on anticoagulation. Her UA is without pyuria. Patient will proceed with the biopsy. #4 Infectious Disease prophylaxis CMV: D+/ R-, EBV D+/R+ #5 CMV mismatch #6 history of sulfa allergy with severe anaphylaxis with shortness of breath Patient remains on Valcyte and pentamidine #7 Fever This has resolved #8 Cardiovascular health #9 HTN Blood pressure 159/92 with HR of 77. I have asked her to restart her carvedilol at 12.5 mg b.i.d. she will take a dose prior to her biopsy this morning. #10 Hx of multiple sclerosis #11 Hx of basal cell carcinoma Patient continues with close follow up with Dermatology and was last seen on 12/21/2023 #12 Osteonecrosis status post bilateral knee and hip replacements and right ankle fusion October 2021 Bone density scan obtained on 09/12/2023 was normal Ca: 8.9 Phos: 3.1 Vitamin D: 35 #13 Hypomagnesemia on supplement I have asked her to increase her slow mag to 143 mg BID #14 Bilateral Lower extremity edema I have recommended that she wears compression stockings over the weekend and follow a low Na Diet. I have also discontinued her sodium bicarb. Patient did have lower extremity edema after her kidney transplant and had an ultrasound of her lower extremities on 10/19 that was negative for DVT. Her edema likely worsened after her recent vacation and being on her feet for longer duration of time. We can consider diuretics if her edema doesn't improve. #15 Follow-up Biopsy review visit on Sunday afternoon Patients case discussed with Dr. Collins * Ricci Collins M.D. - 02/08/2024 8:30 AM CDT I evaluated Ms. Santos's case with Juan Garcia. STUART Grier, Iain.Danitza.Hannah., M.S.N. I confirmed the nugent elements of the history. I agree with the findings, assessment and plan of care as outlined in the note. The patient is presenting for her four months protocol kidney transplant biopsy that was delayed due to prior issues with fevers with negative infectious workup. She has 3rd kidney transplant for end-stage kidney disease food to lupus nephritis. She is low-grade BK viremia and she has been on lowerdose of MMF 500 mg p.o. b.i.d.. Kidney allograft function based on serum creatinine remains very stable. She will undergo her protocol kidney transplant biopsy today. Recently after a trip to [facility] she has bilateral lower extremity swelling- for numb will stop her sodium bicarbonate tablets and she will watch her sodium intake. Will hold off on prescribing any loop diuretics for now. She does not have evidence recently of proteinuria. Ricci Collins M.D. documented in this encounter Plan of Treatment Upcoming Encounters Date Type Department Care Team (Latest Contact Info) Description 03/17/2024 7:20 AM CDT Appointment Department of Laboratory Medicine in [address] [phone] Angelica Hutchins M.D. [address] [place] [phone] 03/24/2024 7:10 AM CDT Appointment Department of Laboratory Medicine in [address] [phone] Juan Grier, STUART, C.N.P., M.S.N. [address] [place] [phone] 03/24/2024 7:20 AM CDT Appointment Department of Laboratory Medicine in [address] [phone] Angelica Hutchins M.D. [address] [place] [phone] 04/07/2024 8:20 AM CDT Appointment Department of Laboratory Medicine in [address] [phone] Angelica Hutchins M.D. [address] [place] [phone] 04/14/2024 8:00 AM CDT Appointment Department of Laboratory Medicine in [address] [phone] Angelica Hutchins M.D. [address] [place] [phone] 04/15/2024 2:00 PM CDT Clinical Communication Virtual Review in [place], [place] [address] [place] [address] 04/17/2024 11:00 AM CDT Office Visit Department of Neurology in [place], [place] [address] [place] [phone] Wang Bass M.D. [address] [place] [phone] 04/22/2024 7:20 AM CDT Appointment Department of Laboratory Medicine in [address] [phone] Angelica Hutchins M.D. [address] [place] [phone] 04/28/2024 7:20 AM CDT Appointment Department of Laboratory Medicine in [address] [phone] Angelica Hutchins M.D. [address] [place] [phone] 04/28/2024 7:40 AM CDT Appointment Department of Laboratory Medicine in [address] [phone] Angelica Hutchins M.D. [address] [place] [phone] 05/05/2024 7:50 AM CDT Appointment Department of Laboratory Medicine in [address] [phone] Angelica Hutchins M.D. [address] [place] [phone] 05/12/2024 7:20 AM CDT Appointment Department of Laboratory Medicine in [address] [phone] Angelica Hutchins M.D. [address] [place] [phone] 05/19/2024 7:20 AM CDT Appointment Department of Laboratory Medicine in [address] [phone] Angelica Hutchins M.D. [address] [place] [phone] 05/26/2024 7:20 AM CDT Appointment Department of Laboratory Medicine in [address] [phone] Angelica Hutchins M.D. [address] [place] [phone] 05/26/2024 7:30 AM CDT Appointment Department of Laboratory Medicine in [address] [phone] Angelica Hutchins M.D. [address] [place] [phone] 06/02/2024 7:20 AM CDT Appointment Department of Laboratory Medicine in [address] [phone] Angelica Hutchins M.D. [address] [place] [phone] 06/30/2024 7:20 AM CDT Appointment Department of Laboratory Medicine in [address] [phone] Angelica Hutchins M.D. [address] [place] [phone] 06/30/2024 7:30 AM CDT Appointment Department of Laboratory Medicine in [address] [phone] Angelica Hutchins M.D. [address] [place] [phone] 07/29/2024 7:20 AM CDT Appointment Department of Laboratory Medicine in [address] [phone] Angelica Hutchins M.D. [address] [place] [phone] 07/29/2024 7:30 AM CDT Appointment Department of Laboratory Medicine in [address] [phone] Angelica Hutchins M.D. [address] [place] [phone] documented as of this encounter Procedures Procedure Name Priority Date/Time Associated Diagnosis Comments IRON AND TOT IRON-BINDING CAPACITY, S/P Routine 02/08/2024 6:34 AM CDT FERRITIN, S Routine 02/08/2024 6:34 AM CDT Transplant Renal (HCC) documented in this encounter Results * Iron and Total Iron-Binding Capacity (02/08/2024 6:34 AM CDT) Iron 63 35 - 145 mcg/dL 02/08/2024 10:06 AM CDT DTL Total Iron Binding Capacity 262 250 - 400 mcg/dL 02/08/2024 10:06 AM CDT DTL Percent Saturation 24 14 - 50 % 02/08/2024 10:06 AM CDT DTL Blood 02/08/2024 6:34 AM CDT 02/08/2024 9:26 AM CDT Marlena Stewart APRNNChris., M.S.N. LAB BLOOD ADD-ON Performing Organization Address City/[facility]/ZIP Co de Phone Number [facility] [address] [place] [address], [facility] 200 [place] [address] * (ABNORMAL) Ferritin (02/08/2024 6:34 AM CDT) Ferritin, S 334(H) 11 - 328 mcg/L 02/08/2024 10:06 AM CDT DTL Blood (Blood, Venous) 02/08/2024 6:34 AM CDT 02/08/2024 9:26 AM CDT Marlena Stewart APRNNChris., M.S.N. LAB BLOOD ADD-ON Performing Organization Address [facility] Co de Phone Number [facility] [address] [place], [place] [address] [address] [place] [address] documented in this encounter Visit Diagnoses Diagnosis Transplant Renal (HCC)- Primary Hypertension Essential Primary Diabetes Mellitus 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) Lupus Systemic Erythematosus (HCC) Hypomagnesemia Edema Peripheral documented in this encounter Additional Health Concerns Infection Onset Date Last Indicated Resolved Time Protective Environment 03/08/2023 03/08/2023 Assessment Noted Time PHQ-9 Depression Total Score: 1 11/23/20 19 7:04 PM SLACKMAN documented as of this encounter Care Teams Airline Pilot Flight Instructor Relationship Specialty Start Date End Date Elsewhere, Pcp PCP - General Boning Room Worker 11/24/19 [place] [phone] Laboratory Medicine 09/18/20 documented as of this encounter
--- OUTSIDE RECORDS SUMMARY | 2024-03-12 05:55 | XMS_ITS | Encounter Summary ---
Author Name Unknown Organization [facility] Address [address] [place] [id number] Care Team Providers Care Chemical Operator Name Role Phone Elsewhere, Pcp Primary Care Provider Unavailabl e Reason for Visit * Reason Comments Chest Pain Extremity Weakness Encounter Details Date Type Department Care Team (Late st Contact Info) Description 02/21/2024 11:03 AM CDT - 02/21/2024 5:25 PM CDT Emergency [facility] Emergency Department [address] [place] [phone] Rafita Patterson P.A.-C. [address] [place] [phone] Nely Pritchard P.A.-C., M.S. [address] [place] [phone] Multiple Sclerosis (HCC) (Primary Dx); Paresthesia; Pain Chest Discharge Disposition: Home or Self Care Social [...] week 02/13/2023 How often do you attend [facility] or mormonism services? 1 to 4 times per year 02/13/2023 Do you belong to any clubs o r organizations such as buddhist groups, unions, fraternal or athletic groups, or [...] Answer Date Recorded PHQ-2 Score 0 09/10/2023 [facility] - Occupational Stress [...] place to sleep or slept in a care home (including now)? No 02/13/2023 Depression Answer Date [...] Sex Assigned at Female 11/13/2018 9:36 AM OPERATIONS LEAD Gender Identity Female 11/13/2018 9:36 AM OPERATIONS LEAD Sexual Orientation Straight 11/13/2018 9: 36 AM OPERATIONS LEAD documented as of this encounter Last Filed [...] 15.5 oz) 024 11:06 AM CDT Height - - Body Mass Index 28.7 02/08/2024 8:34 AM CDT documented in this encounter Discharge Instructions * Discharge Instructions* Nely Pritchard P.A.-C., M.S. - 02/21/2024 5:12 PM CDT Neurology did not recommend any medication changes at this time. They will help in arranging outpatient follow up with your neurologist. Return to ED if new or concerning symptoms. * Attachments The following attachments cannot be sent through Care Everywhere. * Multiple Sclerosis ([place]) documented in this encounter Medications at Time [...] each day. 100 test 2 09/01/2023 08/31/2024 carvediloL (COREG) 12.5 mg tabletIndications:[place] splant Renal (HCC),Hypertension Essential Primary,Diabetes Mellitus 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) Take 1 tablet (12.5 mg total) by mouth 2 (two) times a day with meals for 5 days. 10 tablet 02/08/2024 cholecalciferol (VITAMIN D3) 1,000 Unit tablet Take [...] capsule 3 01/29/2024 tacrolimus (PROGRAF) 1 mg capsuleIndications:Tra nsplant Renal (HCC),Immunodeficiency Due To Drugs (HCC),High 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 Take 1 capsule (1 mg total) by mouth 2 (two) times a day. Take with 0.5 mg capsule for total of 1.5mg AM and 1mg PM 180 capsule 3 01/29/2024 01/28/2025 valGANciclovir (VALCYTE) 450 mg tablet Take 2 tablets (900 mg total) by mouth daily. Dose may change based on kidney function. End date 02/27/2024 60 tablet 5 08/31/2023 02/27/2024 calcitRIOL (ROCALTROL) 0.25 mcg capsule Take 1 capsule (0.25 mcg total) by mouth daily. 30 capsule 09/03/2023 03/10/2024 documented as of this encounter Consult Notes * Fernanda Reynolds M.D. - 02/21/2024 4:28 PM CDTAssociated Order(s): IP CONSULT TO NEUROLOGY Neurology Consult Note: Holley Santos is a 59 y.o. female presenting for Chief Complaint Patient presents with Chest Pain Extremity Weakness Clinical Question: LT sided paraesthesias and pain Subjective: Holley Santos initially began experiencing symptoms approx 5 days ago of tingling in the LT arm feeling like it was asleep and feeling of shooting pain down the leg then approx 3 days ago she also began to have shooting pains in the arm. She also notices some small spasms in the LT lower extremities. She recalls that prior to the onset of the symptoms she was working to get caught up from being sick. She feels that her symptoms are similar to previous flares however generally the duration of symptoms is hours and not days. She endorses that previous spells are usually triggered by stress. 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 She was planning to see Dr. Bass in Oct 2023 however she had a kidney transplant. As recorded in Dr. Carter's recent outpt evaluation, Mrs. Santos has a history of relapsing remitting multiple sclerosis, diagnosed in 2017 (disease onset in August of 2017) after a clinical attack of subacute left hemiparesthesias involving the face, arm and leg. She was noted to have an enhancing lesion at the left C3-4 level. AQP4 Ab was negative at that time. CSF was never obtained. DMT was deferred due to systemic immunosuppression in the setting of renal transplant (1987 and 2010) due to lupus nephritis.....She rarely has recurrence of her tingling/paresthesias in her left face/arm, usually triggered by stress. In November of 2022 she developed a tight-band and hug-like sensation around her abdomen. She has had 3 of these episodes Following this appt on 02/15/23 she was recommended for repeat MRI Brain in 18 months. She was seen by Dr. Carter and autoimmune neurologist Dr. Bass. She continues on immunosuppression with mycophenolate, prednisone and tacrolimus. 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 Blood Transfusion No Diagnosis 1983 many, last was 04/2022 during COVID hospitalization Cancer Skin Basal Cell Personal History first episode 2018, multiple Hypertension Essential Primary 1984 Lupus Nephritis (HCC) 1981 Multiple Sclerosis (HCC) 2020 Some MRI findings, annual monitoring, not on therapy,relapsing type. Started with L face numbness. 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 calcitRIOL (ROCALTROL) 0.25 mcg, oral, Daily carvediloL (COREG) 12.5 mg, oral, 2 times daily with meals cholecalciferol (VITAMIN D3) 1,000 Unit tablet 1 tablet, oral, Daily estradioL (ESTRACE) 1 mg tablet 1 tablet, oral, Every evening lancets Use to test one blood glucose one time each day. magnesium chloride (SLOW-MAG) 143 mg, oral, 3 times daily, Do not crush or chew. multivitamin with folic acid (One Daily Multivitamin) 400 mcg tablet 1 tablet, oral, Daily mycophenolate (CELLCEPT) 500 mg, oral, 2 times daily - immunosuppression, Take medication on an empty stomach. Do not break, cut, or open capsules predniSONE (DELTASONE) 5 mg, oral, Daily progesterone (PROMETRIUM) 200 mg, oral, Every evening tacrolimus (PROGRAF) 0.5 mg, oral, Every morning, Take with 1 mg capsule for total of 1.5mg AM and 1mg PM tacrolimus (PROGRAF) 1 mg, oral, 2 times daily, Take with 0.5 mg capsule for total of 1.5mg AM and 1mg PM valGANciclovir (VALCYTE) 900 mg, oral, Daily, Dose may change based on kidney function. 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 Surgical History: Past Surgical History: Procedure Laterality Date ARTHRODESIS OF ANKLE Right 11/07/2021 Procedure: Right ARTHRODESIS ANKLE.; Surgeon: Elio Hernandez M.D.; Location: [facility] 15 OR SECTION 02/20/1998 JOINT REPLACEMENT bilateral knee and hip replacements JOINT REPLACEMENT In file-multiple TRANSPLANT KIDNEY - RECIPIENT OF DONOR WITH BACK TABLE PREP KIDNEY ALLOGRAFT 1987 [facility], [facility], failed [id number] TRANSPLANT KIDNEY - RECIPIENT OF LIVING DONOR NON-DIRECTED WITH BACK TABLE PREP KIDNEY ALLOGRAFT N/A 07/20/2011 >1. Living donor kidney transplant, positive crossmatch. 2. Removal of PD catheter. 3. Removal of allograft nephrectomy. TRANSPLANT KIDNEY - RECIPIENT OF LIVING DONOR WITH BACK TABLE PREP KIDNEY ALLOGRAFT N/A 08/30/2023 Procedure: TRANSPLANT KIDNEY, RECIPIENT LIVING DONOR, BACK TABLE PREP KIDNEY ALLOGRAFT.; Surgeon: Grant Godinez M.D.; Location: [facility] OR Objective: Vitals: 02/21/24 1300 02/21/24 1435 02/21/24 1545 02/21/24 1600 BP: 135/73 138/80 148/79 Patient Position: Pulse: 77 77 76 Heart Rate: 76 74 76 Temp: Resp: 17 16 21 24 Weight: SpO2: 97% 96% 95% TempSrc: Pain Score: Pain Location: Focused neurologic exam: Eyes: - Pupils: equal round reactive. Yes - RAPD present: No - Central vision loss: No - Difficulty with adducting in lateral gaze suggesting internuclear ophthalmoplegia: No - Nystagmus: No - Funduscopic Exam: Not performed Ears: - Hearing Loss: No Face: - Facial pain/allodynia: No Motor: - Spasticity: Normal tone in all extremities - Strength: Normal strength (0/0) bilaterally in upper extremities including the biceps(C5-6), triceps(C6-8), EDC(C7-8), FDI(C8-T1). Normal strength (0/0) bilaterally in lower extremities including the iliopsoas(L2-3), V. Medialis(L2- 4), B. Femoris short(L5, S1-2), Ant. Tibialis(L4-5), Gastrocnemius(S1-2). Sensory: - Sensation is intact in all extremities to light touch. Coordination: - Dysarthria: No - Ataxia: Jboekn-te-byat movements are normal bilaterally Reflexes: Reflexes are mildly brisk in the bilateral biceps and moderately brisk in the patella bilaterally. General Neurologic Exam: The patient is alert, attentive and oriented. There is no evidence of expressive or receptive aphasia. Extraocular movements are full with smooth pursuit except as stated above. Facial movements are symmetric. Tongue protrudes midline. Head turning is intact. Please see focused neurologic exam section for assessment details. Pertinent Imaging Data: MRI brain and cervical spine with and without contrast was performed in the emergency department which did not show any new interval lesions or new enhancement. Assessment and Plan Holley Santos is a 59 y.o. female who is being evaluated for recurrent left-sided paresthesiasand pain which began approx 5 days ago and has waxed and waned since. She has had previous episodesof similar symptoms before that is generally last hours, she came to the ER today because she was worried that the duration of symptoms was atypical although similar and as well triggered by stress. She has had MRI brain and cervical spine with and without contrast performed here in the emergency department which is not show any interval lesions or enhancement that would be concerning for active demyelination. She does have some evidence of foraminal narrowing in the cervical spine at C5- C6 bilaterally, I discussed with her that if the shooting arm pain were to persist that this could be potentially due toa radiculopathy and to monitor in the coming weeks. If this were the case she could contact outpatient Neurology or discuss if EMG would be helpful for evaluation with her future appointment with . # multiple sclerosis # left hemibody paresthesias and pain - follow up with Dr. Bass as planned for annual visit - no further neurodiagnostic testing or interventions recommended at this time Fernanda Reynolds PGY4 documented in this encounter ED Notes * Nely Pritchard P.A.-C., M.S. - 02/21/2024 5:11 PM CDT Care of patient transferred to [place] by Evin NAVA. Disposition pending 2 hour troponin, cardiology recommendations. Holley Santos is a 59 y.o. female With history of MS, lupus, status post renal transplant August 2023, who presents for evaluation of chest pain and left-sided weakness. Patient reports left arm and leg weakness for the past 5-6 days with associated tingling and shock-like pains at times. Patient also reports a tightness around bilateral ribs which she describes as feeling like a hug. Patient has had similar symptoms with her MS in the past but states that normally the symptoms resolve on their own but they have persisted for multiple days. Patient admits that she has been working an excessive amount of hours recently and has been stressed regarding this. Workup ordered by initial ED provider included ECG, chest x-ray, left shoulder x-rays, MR brain and cervical spine and labs. Patient is PERC negative but considered acute PE due to patient's history of lupus, however she had 2 episodes of the chest tightness earlier today, she does not have chest pain currently, no shortness of breath, she is normal vital signs so I feel that this is unlikely at this time. I consulted neurology due to patient reporting symptoms suggestive of possible MS flare that have persisted longer than usual. They do not recommend any medication changes and will arrange outpatient follow-up with patient's neurologist. Discussed results of workup, questions answered and patient agreeable with thisplan. VITAL SIGNS BP 138/73 Pulse 84 Temp 36.4 ??C (Oral) Resp 17 Wt 71.2 kg SpO2 98% BMI 28.70 kg/m?? ED Course as of 02/21/24 2320 [place]guni Feb 21, 2024 1553 Re-evaluated the patient, she noticed 2 episodes of bilateral rib chest tightness earlier thatshe described as a hug which she has had in the past related to her MS. The initial ED provider did speak with neurology and MR brain & c-spine were ordered. I have ordered a consult due to patient's history of MS 1708 Discussed patient with neurology, they do not recommend any medication changes at this time and they will help arrange neurology follow up Final Diagnoses: as of 02/21/242319 Multiple Sclerosis (HCC) Paresthesia Pain Chest Nely Pritchard P.A.-C., M.S. 02/21/242323 * Rafita Patterson P.A.-C. - 02/21/2024 11:56 AM CDT SUBJECTIVE CHIEF COMPLAINT/REASON FOR VISIT Chest Pain and Extremity Weakness HISTORY OF PRESENT ILLNESS Holley Santos is a 59 y.o. 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 Patient states that starting this past Sunday she developed some numbness throughout her left arm that started at her upper arm progressed down into her hand. She states that shehas had this before with her history of MS but then she developed pain throughout her entire left arm and weakness which is unusual for her. Patient also reports some left leg numbness that began approximately 3 days ago and feels this numbness located over the lateral aspect of her left ankle and dorsal aspect of the left foot. She denies any weakness of the left lower extremity. Patient states that she has still been able to use her left arm and walk without any difficulties. Regarding her chest discomfort, patient states that this morning at approximately 8:00 a.m. she had an episode of chest discomfort that she describes as a numb sensation around her bilateral ribcage that she states feels like a bear hug. She states this episode lasted approximately 10 minutes and resolved withoutany intervention. She states that the episode then happened again at approximately 9:30 a.m. and resolved in approximately 10-15 minutes without any intervention. Patient denied any pleuritic or exertional component to her chest discomfort. Patient says that she did have some nausea with the chest discomfort but denies any abdominal pain, vomiting, or diarrhea. She denies any diaphoresis or palpitations with the episodes of chest discomfort. Patient states that she has had these episodes chest discomfort in the past with her history of MS. However, patient was concerned about the left arm numbness with new pain and weakness along with left leg numbness in addition to the chest discomfort, so she came to the emergency department for further evaluation. She otherwise denies any shortness ofbreath, orthopnea, paroxysmal nocturnal dyspnea, prior history of DVT/PE, personal history of cancer, cough, congestion, sore throat, fever, chills, dysuria, hematuria, urinary urgency/frequency, or f lank pain. She denies any trauma to the chest, left upper extremity, or left lower extremity. 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 Initial (HCC) Presence Of Left Artificial Hip Joint Presence Of Artificial Knee Joint Bilateral Pain Leg Right Fusion Ankle Status Post Chronic Kidney Disease Stage 4 Glomerular Filtration Rate 15-29 (HCC) Chronic Kidney Disease Stage 5 Glomerular Filtration Rate Less Than 15 (HCC) Transplant Renal (HCC) Hypomagnesemia Hypocalcemia Personal History Of Infectious And Parasitic Disease (COVID-19) Gout Hemiplegic Migraine Not Intractable Without Status Migrainosus Menopausal And Female Climacteric States Pneumonia Abnormal Results Of Function Studies Of Other Organs And Systems Calculus Of Gallbladder With Acute Cholecystitis Without Obstruction Deficiency Vitamin D Hyperparathyroidism Renal Secondary (HCC) Hypophosphatemia OBJECTIVE Initial Vitals Temperature 02/21/24 1108 36.4 ??C Pulse Rate 02/21/24 1108 83 Heart Rate 02/21/24 1215 80 Resp Rate 02/21/24 1108 16 Blood Pressure 02/21/24 1108 131/70 SpO2 02/21/24 1108 95 % Pain Score 02/21/24 1256 4 PHYSICAL EXAMINATION Constitutional: Nursing note and vitals reviewed. She appears not lethargic. No distress. HENT: Head: Normocephalic and atraumatic. Mouth/Throat: Oropharynx is clear and moist. Mucous membranes are moist. Eyes: Conjunctivae and EOM are normal. Pupils are equal, round, and reactive to light. Cardiovascular: Normal rate, regular rhythm, S1 normal, S2 normal and normal heart sounds. Exam reveals no gallop and no friction rub. Pulses are strong and palpable. No murmur heard.Capillary refill: takes less than 3 secondsEdema: no edema noted Pulmonary/Chest: Effort normal. No tachypnea. No respiratory distress. She has no wheezes. She has no rhonchi. She has no rales. She exhibits no retraction. Abdominal: Soft. Bowel sounds are normal. exhibits no distension. There is no abdominal tenderness.There is no rigidity, no rebound, no guarding, no CVA tenderness, no tenderness at McBurney's pointand negative Patel's sign. Musculoskeletal: Cervical back: Normal range of motion. Comments: Moving all extremities without any difficulty, no obvious deformities. There was no tenderness to palpation over the anterior, lateral, or posterior aspects of the left shoulder. No tenderness to palpation throughout the left arm, left forearm, or throughout the left hand. She has full active and passive range of motion of the left upper extremity. Neurological: Alert and oriented to person, place, and time. She is not disoriented. CN 2 through 12 grossly intact. There is diminished sensation to light touch in the anterior deltoid of the left upper extremity, but sensation is otherwise intact in all other areas of the bilateralupper extremities. There is also diminished sensation over the left lateral ankle and dorsal aspectof the left foot in the L5 and S1 distributions, but otherwise all other areas of the bilateral lower extremities have sensation that is intact to light touch. 5/5 strength with elbow flexion, elbow extension, and shoulder abduction of the right upper extremity, 4/5 strength in the left upper extremity. 5/5 strength with dorsiflexion, plantar flexion, hip flexion, knee flexion, and knee extensionof the right lower extremity, 4/5 strength in the left lower extremity. Normal gait without any central ataxia. Negative pronator drift. No abnormalities with tandem gait. No truncal ataxia while sitting. No dysmetria with [id number] or [id number]. Skin: Skin is warm and dry. She is not diaphoretic. ASSESSMENT/PLAN Assessment and Plan Patient is a 59-year-old female with past medical history as stated above who presents to the emergency department today for multiple concerns including left arm numbness with new left arm pain and weakness that began yesterday, left leg numbness for the past 3 days, nausea, and 2 episodes of chestdiscomfort that she described as a numb sensation and feeling like someone is hugging her, which is similar to her prior episodes of MS. On initial presentation, patient is nontoxic appearing, hemodynamically stable, speaking in full sentences without any breaks or pauses, breathing comfortably with good oxygen saturation on room air, afebrile, and in no acute distress. Physical exam did reveal some left upper extremity and left lower extremity weakness and sensory deficits, but these have beenpresent for greater than 24 hours and she does not have any other focal neurological deficits, I have low suspicion for stroke and did not feel that acute stroke protocol should be activated. Labs and studies obtained in triage included CBC, BMP, BNP, TSH, hepatic function panel, lipase, troponin, c hest x-ray, and left shoulder x-ray. X-ray of patient's left shoulder showed normal anatomic alignment of her left glenohumeral joint but did show some subacromial narrowing that they said could be related to rotator cuff arthropathy, the patient has no focal areas of tenderness throughout the shoul lilian with full active and passive range of motion. CBC was remarkable for a leukocytosis of 15.2 that is new compared to labs from 13 days ago and the neutrophilia has been present in the past but is higher compared to labs from 13 days ago. Patient was afebrile, has no infectious symptoms, is hemodynamically stable without meeting SIRS or sepsis criteria, but despite being on prednisone she did not have this leukocytosis or worsening neutrophilia over recent labs so additional areas of possibleinfection to explain her leukocytosis were explored with urinalysis and COVID/flu swabs. TSH was within normal limits and not suggestive of hypothyroidism or hyperthyroidism that could explain the numbness she is experiencing. Hepatic function panel and lipase were within normal limits and not suggestive of cholestasis, hepatitis, or pancreatitis that could explain the nausea she was experiencing. There was some mention of abdominal discomfort in the triage note but patient stated that she was not having any abdominal pain and her abdominal exam did not reveal any tenderness, distention, or peritoneal signs and I do not feel that advanced imaging was warranted. Pneumonia was considered but patient was not having any respiratory infectious symptoms, tachypnea, hypoxia, or fever and her chest x-ray did not reveal any consolidations concerning for pneumonia. Chest x-ray also did not revealany mediastinal widening concerning for thoracic aortic dissection. ACS was considered but EKG did not reveal any ischemic changes with initial troponin not being elevated in 2 hour troponin showing no change. BNP was elevated but patient had no signs of fluid overload, abdominal distention, and nopulmonary edema or pleural effusions on chest x-ray, I do not feel that her chest discomfort is related to CHF. Regarding patient's left upper extremity and left lower extremity weakness with sensory deficits, Isuspect that these are secondary to her multiple sclerosis I do not believe that these are secondary to any type of arterial dissection given that she has had symptoms like this before with her multiple sclerosis, has no pulse deficits, not having any current has been her abdominal pain, in his hemo dynamically stable. Care was then signed out to oncoming team with disposition pending results fromthe MRI of her brain and cervical spine with Neurology recommendations, urinalysis, and COVID/flu swabs. . DIFFERENTIAL DIAGNOSES Multiple sclerosis, stroke, ACS, aortic dissection, pneumonia, thyroid dysfunction, and among others.. I reviewed the following external records: prior outpatient radiology tests, prior outpatient labs and office records. ED Course as of 02/21/24 1838 Falguni Feb 21, 2024 123 ECG personally reviewed by myself reveals normal sinus rhythm with rate of 82 beats per minute. RI interval is normal at 150 milliseconds. QTC is normal at 408 milliseconds. There is T-wave inversion in lead [address] depressions or ST elevations and no other areas of T-wave inversions. T-wave inversion in lead 3 was present on prior EKG from August of 2023. 1232 CBC with Differential, Blood(!): Hemoglobin 11.3(!) Hematocrit 33.7(!) Erythrocytes 3.68(!) MCV 91.6 RBC Distrib Width 13.2 Platelet Count 280 Leukocytes 15.2(!) Neutrophils 13.68(!) Lymphocytes 0.48(!) Monocytes 0.86(!) Eosinophils 0.13 Basophils 0.08 Anemia is baseline compared to 13 days ago. Leukocytosis is new neutrophilia has been present in the past but has increased compared to 13 days ago. 1233 Basic Metabolic Panel(!): Potassium, P 4.1 Sodium, P 139 Chloride, P 103 Bicarbonate, P 25 Anion Gap, P 11 BUN (Blood Urea Nitrogen), P 18 Creatinine 0.97 Estimated GFR (eGFR) 68 Calcium, Total, P 9.7 Glucose, P 157(!) Slight hyperglycemia but normal anion gap. Kidney function is normal compared to baseline with no electrolyte derangements. 1233 Hepatic Function Panel: Bilirubin, Total, S 0.5 Bilirubin, Direct, S <0.2 Aspartate Aminotransferase (AST), S 24 Alanine Aminotransferase (ALT), S 12 Alkaline Phosphatase, S 70 Albumin, S 4.2 Protein, Total, S 6.7 Normal. Not suggestive of cholestasis or hepatitis. 1234 Lipase: Lipase, S 38 Normal. Not suggestive of pancreatitis. 1234 Troponin T, Baseline, 5th gen: Troponin T, Baseline, 5th gen 9 Not elevated with no ischemic changes on ECG, but patient's last episode of chest discomfort was at9:30 a.m. this morning, we will proceed with 2 hour troponin. 1234 NT-Pro B-Type Natriuretic Peptide (BNP)(!): NT-Pro BNP 405(!) Elevated with no prior comparison but patient has no signs of fluid overload on physical exam and no pulmonary edema or pleural effusion on chest x-ray. 1235 Thyroid Function Forrest: TSH, Sensitive 3.2 Within normal limits. Not suggestive of hypothyroidism or hyperthyroidism. 1236 DX Chest AP or PA and Lateral 2 Views IMPRESSION: Lungs are clear without consolidation or effusion. Slight elevation of the right hemidiaphragm. Presumed pill fragments in the stomach. Degenerative changes in the spine. Old right rib fractures. I reviewed patient's chest x-ray and agree with radiology's interpretation. 1236 DX Shoulder Left 2+ Views IMPRESSION: Anatomic alignment of the left glenohumeral joint. Narrowing of the subacromial space can be seen with rotator cuff arthropathy. Presumed granuloma, left apex. I reviewed shoulder x-ray and agree with radiology's interpretation. 1245 Spoke with Neurology about patient's left upper and lower extremity weakness with her history of MS, but not currently on any medications. Patient does have an MRI from 2021 that does confirm that she has MS. They recommended obtaining an MRI of the brain and C-spine with and without contrast And contact them if there are any abnormalities. 1345 Troponin T, 2h/6h, 5th Gen: Troponin T, 2 hr, 5th gen 8 2H Delta -1 2H Delta Interp Not Changing Troponin T, 6 hr, 5th gen CANCELED 6H Delta CANCELED 6H Delta % CANCELED Not changing with no ischemic changes on her ECG. Unlikely ACS. Final Diagnoses: as of 02/21/241837 Multiple Sclerosis (HCC) Paresthesia Pain Chest Rafita Patterson P.A.-C. 02/21/248 * Suhas Pascal R.N. - 02/21/2024 11:10 AM CDT Presents with complaints of left arm weakness and now pain for the last 5-6 days. She also states that left leg also has some tingling. Reports feeling of pressure around her abdomen as well with nausea present. History of MS and renal transplant 6 months ago. Suhas Pascal R.N. 02/21/24 1113 documented in this encounter Plan of Treatment Upcoming Encounters Date Type Department Care Team (Latest Contact Info) Description 03/17/2024 7:20 AM CDT Appointment Department of Laboratory Medicine in [address] [phone] Angelica Hutchins M.D. [address] [place] [phone] 03/24/2024 7:10 AM CDT Appointment Department of Laboratory Medicine in [address] [phone] Juan Grier, STUART, C.N.P., M.S.N. [address] [place] [phone] 03/24/2024 7:20 AM CDT Appointment Department of Laboratory Medicine in [address] [phone] Angelica Hutchins M.D. [address] [place] [phone] 04/07/2024 8:20 AM CDT Appointment Department of Laboratory Medicine in [address] [phone] Angelica Hutchins M.D. [address] [place] [phone] 04/14/2024 8:00 AM CDT Appointment Department of Laboratory Medicine in [address] [phone] Angelica Hutchins M.D. [address] [place] [phone] 04/15/2024 2:00 PM CDT Clinical Communication Virtual Review in [address] [address] 04/17/2024 11:00 AM CDT Office Visit Department of Neurology in [address] [phone] Wang Bass M.D. [address] [place] [phone] 04/22/2024 7:20 AM CDT Appointment Department of Laboratory Medicine in [address] [phone] Angelica Hutchins M.D. [address] [place] [phone] 04/28/2024 7:20 AM CDT Appointment Department of Laboratory Medicine in [address] [phone] Angelica Hutchins M.D. [address] [place] [phone] 04/28/2024 7:40 AM CDT Appointment Department of Laboratory Medicine in [address] [phone] Angelica Hutchins M.D. [address] [place] [phone] 05/05/2024 7:50 AM CDT Appointment Department of Laboratory Medicine in [address] [phone] Angeilca Hutchins M.D. [address] [place] [phone] 05/12/2024 7:20 AM CDT Appointment Department of Laboratory Medicine in [address] [phone] Angelica Hutchins M.D. [address] [place] [phone] 05/19/2024 7:20 AM CDT Appointment Department of Laboratory Medicine in [address] [phone] Angelica Hutchins M.D. [address] [place] [phone] 05/26/2024 7:20 AM CDT Appointment Department of Laboratory Medicine in [address] [phone] Angelica Hutchins M.D. [address] [place] [phone] 05/26/2024 7:30 AM CDT Appointment Department of Laboratory Medicine in [address] [phone] Angelica Hutchins M.D. [address] [place] [phone] 06/02/2024 7:20 AM CDT Appointment Department of Laboratory Medicine in [address] [phone] Angelica Hutchins M.D. [address] [place] [phone] 06/30/2024 7:20 AM CDT Appointment Department of Laboratory Medicine in [address] [phone] Angelica Hutchins M.D. [address] [place] [phone] 06/30/2024 7:30 AM CDT Appointment Department of Laboratory Medicine in [address] [phone] Angelica Hutchins M.D. [address] [place] [phone] 07/29/2024 7:20 AM CDT Appointment Department of Laboratory Medicine in [address] [phone] Angelica Hutchins M.D. [address] [place] [phone] 07/29/2024 7:30 AM CDT Appointment Department of Laboratory Medicine in [address] [phone] Angelica Hutchins M.D. [address] [place] [phone] documented as of this encounter Procedures Procedure Name Priority Date/Time Associated Diagnosis Comments DIPSTICK, U STAT 02/21/2024 3:35 PM CDT MICROSCOPIC AUTOMATED STAT 02/21/2024 3:35 PM CDT BACTERIAL CULTURE, AEROBIC + SUSC, URINE STAT 02/21/2024 3:35 PM CDT PH, U STAT 02/21/2024 3:35 PM CDT OSMOLALITY, U STAT 02/21/2024 3:35 PM CDT URINALYSIS WITH MICROSCOPIC STAT 02/21/2024 3:35 PM CDT MR CERVICAL [...] patients; some inpatients) 02/21/2024 12:02 PM CDT TROPONIN T, BASELINE, 5TH GEN, P STAT 02/21/2024 11:27 AM CDT HEPATIC FUNCTION PANEL, S STAT 02/21/2024 11:27 AM CDT THYROID FUNCTION CASCADE, S STAT 02/21/2024 11:27 AM CDT NT-PRO B-TYPE NATRIURETIC PEPTIDE (BNP), S STAT 02/21/2024 11:27 AM CDT PROTHROMBIN TIME (PT), P STAT 02/21/2024 11:27 AM CDT CBC WITH DIFFERENTIAL, B STAT 02/21/2024 11:27 AM CDT LIPASE, S/P STAT 02/21/2024 11:27 AM CDT BASIC METABOLIC PANEL, S/P STAT 02/21/2024 11:27 AM CDT ECG STAT 02/21/2024 11:22 AM CDT documented in this encounter Results * Dipstick, Urine (02/21/2024 3:35 PM CDT) Hemoglobin, QL, U Negative Negative 02/21/2024 4:05 [...] Rafita Patterson P.A.-C. LAB URINE ORDERA BLES [facility] [address] [place] [address], [facility] [address] [place] [address] * pH, Urine (02/21/2024 3:35 PM CDT) pH, U 5.2 4.5 - 8.0 02/21/2024 4:5 4 PM CDT DTL Urine 02/21/2024 3:35 PM CDT 02/21/2024 3:56 PM CDT Rafita Patterson P.A.-C. LAB URINE ORDERA BLES Performing Organization Address City/[facility]/ZIP Co de Phone Number [facility] [address] [place] [address], [facility] [address] [place] [address] * Osmolality, Urine (02/21/2024 3:35 PM CDT) Osmolality, U 678 150 - 1150 mOsm/kg 02/21/2024 4:54 PM CDT DTL Urine 02/21/2024 3:35 PM CDT 02/21/2024 3:56 PM CDT Rafita Patterson P.A.-C. LAB URINE ORDERA BLES Performing Organization Address City/[facility]/ZIP Co de Phone Number [facility] [address] [place], [place] [address] [address] [place] [address] * Microscopic Automated (02/21/2024 3:35 PM CDT) Microscopy Normal 02/21/2024 4:05 PM CDT DTL RBC None Seen <3 /hpf 02/21/2024 4:05 PM CDT DTL WBC None Seen /hpf 02/21/2024 4:05 PM CDT DTL Comment: ----REFERENCE VALUE---- <4 ??(Males) <11 (Females) Urine 02/21/2024 3:35 PM CDT 02/21/2024 3:56 PM CDT Rafita Patterson P.A.-C. LAB URINE ORDERA BLES Performing Organization Address [facility] Co de Phone Number [facility] [address] [place] [address] * Bacterial Culture, Aerobic + Susceptibility, Urine (02/21/2024 3:35 PM CDT) Urine Culture No growth after 1 day of incubation. 02/22/2024 12:27 PM CDT DTL Urine (Urine, Midstream) 02/21/2024 3:35 PM CDT 02/21/2024 4:41 PM CDT Comment:Specimen Source Site : Urine Rafita Patterson P.A.-C. LAB MICROBIOLOGY - GENERAL ORDERABLES Performing Organization Address [facility] Co de Phone Number [facility] [address] [place], [place] [phone] [place] [address] [address] [place] [address] * Urinalysis, with Microscopic: Urine, Midstream (02/21/2024 3:35 PM CDT) Source Urine, Urine, Midstream 02/21/2024 3:56 PM [...] Rafita Patterson P.A.-C. LAB URINE ORDERA BLES [facility] [address] [place] [address], [facility] DTL [facility] [address] [place] [address] * MR Cervical Spine without and with IV Contrast (02/21/2024 3:20 PM CDT) Anatomical Region Laterality Modality Spine, Cervical Spine, Neuro radiology RST LOS, Neuroradiology [facility], Neuroradiology [facility] N/A Magneti c Resonance Impressions 02/21/2024 4:05 [...] spondylosis, primarily at C5-6. Rafita Patterson P.A.-C. [facility] MRI PROCEDUR ES * MR Brain without and with IV Contrast (02/21/2024 3:20 PM CDT) Anatomical Region Laterality Modality Head, Brain, Neuroradiology RST [facility], [facility] N/A Magnetic Resonance Impressions 02/21/2024 4:05 PM [...] spondylosis, primarily at C5-6. Rafita Patterson P.A.-C. [facility] PROCEDUR ES * Influenza A, B, [...] MICROBIOLOGY - GENERAL ORDERABLES Performing Organization Address City/[facility]/ZIP Co de Phone Number [facility] [address] [place] [address] * SARS Coronavirus 2, PCR Rapid Symptomatic (02/21/2024 2:33 PM CDT) [facility] SARS CoV-2, PCR, Rapid, V Undetected Undetected 02/21/2024 3:03 PM CDT STMA Comment: ----ADDITIONAL INFORMATION---- This RT-PCR test was performed using the [employer] SARS-CoV-2 and Influenza A/B Reagent assay from [employer], which has received Emergency Use Authorization(EUA) by the U.S. Food and Drug Administration. Fact sheets for this Emergency Use Authorization (EUA) assay can be found at the following links: For Healthcare Providers: https://www.fda.gov/media/014479/download For Patients: https://www.fda.gov/media/416060/download SARS Coronavirus 2, Rapid, Source Swab, Nasopharynx 02/21/2024 2:39 PM CDT STMA Swab (Nasopharynx) 02/21/2024 2:33 PM CDT 02/21/2024 2:39 PM CDT Rafita Patterson P.A.-C. LAB MICROBIOLOGY - GENERAL ORDERABLES Performing Organization Address City/[facility]/ZIP Co de Phone Number [facility] [address] [facility] [address] [place] [address] * Troponin T, 2h/6h, 5th Gen (02/21/2024 [...] PM CDT 02/21/2024 12:36 PM CDT Narrative [facility] - 02/21/2024 1:39 PM CDT Specimen Information: Specimen ID: [id number] Specimen Type: Blood Specimen Collection Start Date: 02/21/2024 12:20 PM Specimen Received Date: 02/21/2024 12:36 PM Specimen ID: [id number] Specimen Type: Blood Rubio Reyes P.A.-C. LAB BLOOD TROPONIN [facility] [address] [place] [address], [facility] [address] [place] [address] * DX Shoulder Left 2+ Views (02/21/2024 [...] Lateral 2 Views (02/21/2024 12:02 PM CDT) Anatomical Region Laterality Modality Chest, Thoracic RST [...] P.A.-C. IMG DIAGNOSTIC LESLY GING PROCEDURES * Thyroid Function Forrest (02/21/2024 11:27 AM CDT) TSH, Sensitive 3.2 0.3 - 4.2 mIU/L 02/21/2024 12:15 PM CDT DTL Blood (Blood, Venous) 02/21/2024 11:27 AM CDT 02/21/2024 11:45 AM CDT Rubio Reyes P.A.-C. LAB BLOOD ADD-ON [facility] [address] DTL [facility] 200 [place] [address] * Troponin T, Baseline, 5th gen (02/21/2024 11:27 AM CDT) Troponin T, Baseline, 5th gen 9 <=10 ng/L 02/21/2024 11:48 AM CDT [facility] Blood (Blood, Venous) 02/21/2024 11:27 AM CDT 02/21/2024 11:31 AM CDT Rubio Reyes P.A.-C. LAB BLOOD TROPONIN Performing Organization Address City/State/[facility] Co de Phone Number [facility] 200 [place] [address] * (ABNORMAL) NT-Pro B-Type Natriuretic Peptide (BNP) (02/21/2024 11:27 AM CDT) NT-Pro BNP 405(H) <=226 pg/mL 02/21/2024 11:57 AM CDT [facility] Comment: NT-proBNP values less than 300 pg/mL [...] CDT Rubio Reyes P.A.-C. LAB BLOOD ADD-ON [facility] [address] STMA [facility] 200 [place] [address] * Lipase (02/21/2024 11:27 AM CDT) Lipase, S 38 13 - 60 U/L 02/21/2024 12:15 PM CDT DTL Blood (Blood, Venous) 02/21/2024 11:27 AM CDT 02/21/2024 11:45 AM CDT Rubio Jonathan Reyes P.A.-C. LAB BLOOD ADD-ON [facility] [address] DTL [facility] [address] [place] [address] * Hepatic Function Panel (02/21/2024 11:27 AM [...] CDT Rubio Reyes P.A.-C. LAB BLOOD ADD-ON [facility] [address] [place] [address], [facility] DTL [facility] [address] [place] [address] * (ABNORMAL) Basic Metabolic Panel (02/21/2024 11:27 AM CDT) Pathologist [facility] Potassium, P 4.1 3.6 - 5.2 mmol/L [...] CDT Rubio Reyes P.A.-C. LAB BLOOD ADD-ON [facility] [address] [place] [address], [facility] STMA [facility] [address] [place] [address] * (ABNORMAL) CBC with Differential, Blood (02/21/2024 11:27 AM CDT) Hemoglobin 11.3(L) 11.6 - 15.0 g/dL 02/21/2024 [...] P.A.-C. LAB BLOOD ADD-ON Performing Organization Address City/[facility]/ZIP Co de Phone Number [facility] [address] [place], [place] [phone] [place] [address] [address] [place], [place] [phone] [place] [address] 200 [place] [address] * Prothrombin Time (PT) (02/21/2024 11:27 AM CDT) Pathologist [facility] Prothrombin Time, P 10.7 9.4 - 12.5 sec 02/21/2024 11:39 AM CDT [facility] INR 1.0 0.9 - 1.1 02/21/2024 11:39 AM CDT [facility] Comment: ----ADDITIONAL INFORMATION---- Standard intensity warfarin therapeutic range: 2.0 to 3.0 ?? High intensity warfarin therapeutic range: 2.5 to 3.5 Blood (Blood, Venous) 02/21/2024 11:27 AM CDT 02/21/2024 11:31 AM CDT Rubio Reyse P.A.-C. LAB BLOOD ADD-ON [facility] [address] [place], [place] [address] [address] [place] [address] * ECG 12 Lead (02/21/2024 11:22 AM CDT) Ventricular Rate ECG/Min 82 BPM MUSE RI Interval 150 ms MUSE QRSD Interval 80 ms MUSE QT Interval 350 ms MUSE QTC Interval 408 ms MUSE P [place] 38 degrees MUSE R [place] 0 degrees MUSE T Wave [place] 22 degrees MUSE 02/21/2024 11:2 2 AM CDT 02/21/2024 11:26 AM CDT Impressions MUSE - 02/21/2024 11:26 AM CDT Normal sinus rhythm Minimal voltage criteria for LVH, may be normal variant Nonspecific T wave abnormality When compared with ECG of 30-AUG-2023 08:03, No significant change was found Reviewed by CHNIO Llanes Narrative Procedure Note Mesfin Fonseca M.D., Ph.D. - 02/21/2024 IMPRESSION: Normal sinus rhythm Minimal voltage criteria for LVH, may be normal variant Nonspecific T wave abnormality When compared with ECG of 30-AUG-2023 08:03, No significant change was found Reviewed by CHINO Llanes Rafita Patterson P.A.-C. ECG ORDERABLES MUSE NA documented in this encounter Visit Diagnoses Diagnosis Multiple Sclerosis (HCC)- Primary Paresthesia Pain Chest documented in this encounter Administered Medications Inactive Administered Medications - up to 3 most recent administrations Medication Order MAR Action Action Date Dose Rate Site gadobutrol injection 0.01-30 mL (GADAVIST) 0.01-30 mL, intravenous, Once in imaging, contrast, Starting on Falguni 02/21/24 at 1520, For 1 dose, Imaging Protocol Orders, Dose per Radiant Medication Guidelines Intrathecal doses greater than 0.25 mL not recommended. Given 02/21/2024 3:21 PM CDT 7.5 mL documented in this encounter Active and Recently Administered Medications Times are shown in CDT. Scheduled Medication Order 02/19/2024 02/20/2024 02/21/2024 sodium chloride (PF) 0.9 % injection 1-100 mL 1-100 mL, intravenous, Once, On Falguni 02/21/24 at 1521, For 1 dose, Imaging Protocol Orders, Dose per Radiant Medication Guidelines 1521 (Due) PRN Medication Order 02/19/2024 02/20/2024 02/21/2024 gadobutrol injection 0.01-30 mL (GADAVIST) (COMPLETED) 0.01-30 mL, intravenous, Once in imaging, contrast, Starting on Falguni 02/21/24 at 1520, For 1 dose, Imaging Protocol Orders, Dose per Radiant Medication Guidelines Intrathecal doses greater than 0.25 mL not recommended. 1521 (Given - Provid er: Pérez Cooper(MR)) documented in this encounter Additional Health Concerns Infection Onset Date Last Indicated Resolved Time Protective Environment 03/08/2023 03/08/2023 COVID19 Pending 02/21/2024 02/21/2024 02/21/2024 3 :03 PM CDT Assessment Noted Time PHQ-9 Depression Total Score: 1 11/23/20 19 7:04 PM OPERATIONS LEAD documented as of this encounter Care Teams Chemical Operator Relationship Specialty Start Date End Date Elsewhere, Pcp PCP - General Executive Candidate Developer 11/24/[address] [address] Laboratory Medicine 09/18/20 documented as of this encounter
--- OUTSIDE RECORDS SUMMARY | 2024-03-12 05:55 | XMS_ITS | Encounter Summary ---
Author Name Unknown Organization [facility] Address [address] [place] [id number] Care Team Providers Care Roper Operator Name Role Phone Elsewhere, Pcp Primary Care Provider Unavailabl e Reason for Visit * Transplant (Routine) - Closed Specialty Diagnoses / Procedures Referred By Contreanna t Referred To Contact Transplant Juan Grier APRN, C.N.P., M.S.N. [address] [place] [phone] [facility] Referral ID Status Reason Start Date Expiration Date Visits Re quested Visits Authorized [id number] Closed 01/15/2024 07/16/2025 1 1 Encounter Details Date Type Department Care Team (Latest Contact Info) Description 02/11/2024 1:30 PM CDT Telemedicine Joon [facility] in [place], [place] [address] [place] [phone] Juan Grier APRN, C.N.P., M.S.N. [address] [place] [phone] Angelica Hutchins M.D. 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 1 to 4 times per year 02/13/2023 Do you belong to any clubs o r organizations such as tenriism groups, unions, fraternal or athletic groups, or [...] Answer Date Recorded PHQ-2 Score 0 09/10/2023 [facility] - Occupational Stress Questionnaire Answer Date [...] Sex Assigned at Female 11/13/2018 9:36 AM [employer]OD LAYUP LINE CORE LAYER Gender Identity Female 11/13/2018 9:36 AM [employer] LAYUP LINE CORE LAYER Sexual Orientation Straight 11/13/2018 9: 36 AM PLY[employer]OD LAYUP LINE CORE LAYER documented as of this encounter Progress Notes * Angelica Hutchins M.D. - 02/11/2024 1:30 PM CDT Kidney-Pancreas 4 month Transplant Evaluation: Visit conducted via real-time audio/video technology by Angelica Hutchins M.D. at [facility] in [place], [place] to the patient in their home. TRANSPLANT HISTORY: ESRD Cause: Lupus nephritis Date [...] mismatch) EBV: Donor: positive / Recipient: positive REASON FOR VISIT Follow-up kidney biopsy HISTORY OF PRESENT ILLNESS Ms. Santos is a 59 y.o. 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 Post transplant hospital course was uncomplicated. Patient's past medical history is significant for multiple sclerosis, squamous cell carcinoma, basal cell carcinoma, osteonecrosis s/p bilateral knee and hip replacements, recurrent UTI, HTN, hyperlipidemia, secondary hyperparathyroidism, and chronic leukocytosis and anemia. The patient underwent a transplant kidney biopsy last week without complication. She has minimal pain currently, minimal bleeding around the site, and no hematuria. OBJECTIVE General: Alert and oriented x 3 in no acute distress. No respiratory distress. 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 Kidney biopsy is essentially unremarkable but staining for BK is negative. There are very mild areas of scar with inflammation. Note that she jose tacrolimus, MMF, and prednisone. Tacrolimus is supratherapeutic, but doses have recently been flu ctuating. Patient prefers rechecking. I note very low level BK viremia that has been stable. PLAN/RECOMMENDATIONS: No dose change to tacrolimus. Recheck with next labs. Goal is 6-8. I will final up BK stains on biopsy Continue MMF at 500mg BID. #5 Infectious Disease prophylaxis CMV: D+/ R-, EBV D+/R+ #6 CMV mismatch #7 history of sulfa allergy with severe anaphylaxis with shortness of breath Patient remains on Valcyte and pentamidine. We discussed CMV and her risk with discontinuation of Valcyte. PLAN/RECOMMENDATIONS: Weekly CMV monitoring after Valcyte discontinuation. #8 Hypertension, controlled #9 Hx of multiple sclerosis #10 Hx of basal cell carcinoma Patient continues with close follow up with Dermatology and was last seen on 12/21/2023 #11 Osteonecrosis status post bilateral knee and hip replacements and right ankle fusion October 2021 Normal bone density, calcium, phosphorus, and vitamin D. #12 Hypomagnesemia on supplements Dose increased last week. #13 Bilateral Lower extremity edema; intermittent This is not likely related to kidney. Her function is excellent and she has normal albumin and no proteinuria. This is likely related some venous insufficiency. Low salt and compression stockings recommended as needed. FOLLOW UP Next office visit: 1 year post transplant Tests for follow-up visit (in addition to standard tests): none Laboratory monitoring frequency: She will have her usual labs in 2 weeks for recheck of tacrolimus etc. Nonstandard monitoring labs: weekly CMV PCR x 12 weeks after Valcyte discontinuation Tacrolimus goal trough: 6-8 Other: Monthly labs outside of tacrolimus monitoring and weekly CMV PCR monitoring documented in this encounter Plan of Treatment Upcoming Encounters Date Type Department Care Team (Latest Contact Info) Description 03/17/2024 7:20 AM CDT Appointment Department of Laboratory Medicine in [address] [phone] Angelica Hutchins M.D. [address] [place] [phone] 03/24/2024 7:10 AM CDT Appointment Department of Laboratory Medicine in [address] [phone] Juan Grier, STUART, C.N.P., M.S.N. [address] [place] [phone] 03/24/2024 7:20 AM CDT Appointment Department of Laboratory Medicine in [address] [phone] Angelica Hutchins M.D. [address] [place] [phone] 04/07/2024 8:20 AM CDT Appointment Department of Laboratory Medicine in [address] [phone] Angelica Hutchins M.D. [address] [place] [phone] 04/14/2024 8:00 AM CDT Appointment Department of Laboratory Medicine in [address] [phone] Angelica Hutchins M.D. [address] [place] [phone] 04/15/2024 2:00 PM CDT Clinical Communication Virtual Review in [place], [place] [address] [place] [address] 04/17/2024 11:00 AM CDT Office Visit Department of Neurology in [place], [place] [address] [place] [phone] Wang Bass M.D. [address] [place] [phone] 04/22/2024 7:20 AM CDT Appointment Department of Laboratory Medicine in [address] [phone] Angelica Hutchins M.D. [address] [place] [phone] 04/28/2024 7:20 AM CDT Appointment Department of Laboratory Medicine in [address] [phone] Angelica Hutchins M.D. [address] [place] [phone] 04/28/2024 7:40 AM CDT Appointment Department of Laboratory Medicine in [address] [phone] Angelica Hutchins M.D. [address] [place] [phone] 05/05/2024 7:50 AM CDT Appointment Department of Laboratory Medicine in [address] [phone] Angelica Hutchins M.D. [address] [place] [phone] 05/12/2024 7:20 AM CDT Appointment Department of Laboratory Medicine in [address] [phone] Angelica Hutchins M.D. [address] [place] [phone] 05/19/2024 7:20 AM CDT Appointment Department of Laboratory Medicine in [address] [phone] Angelica Hutchins M.D. [address] [place] [phone] 05/26/2024 7:20 AM CDT Appointment Department of Laboratory Medicine in [address] [phone] Angelica Hutchins M.D. [address] [place] [phone] 05/26/2024 7:30 AM CDT Appointment Department of Laboratory Medicine in [address] [phone] Angelica Hutchins M.D. [address] [place] [phone] 06/02/2024 7:20 AM CDT Appointment Department of Laboratory Medicine in [address] [phone] Angelica Hutchins M.D. [address] [place] [phone] 06/30/2024 7:20 AM CDT Appointment Department of Laboratory Medicine in [address] [phone] Angelica Hutchins M.D. [address] [place] [phone] 06/30/2024 7:30 AM CDT Appointment Department of Laboratory Medicine in [address] [phone] Angelica Hutchins M.D. [address] [place] [phone] 07/29/2024 7:20 AM CDT Appointment Department of Laboratory Medicine in [address] [phone] Angelica Hutchins M.D. [address] [place] [phone] 07/29/2024 7:30 AM CDT Appointment Department of Laboratory Medicine in [address] [phone] Angelica Hutchins M.D. [address] [place] [phone] documented as of this encounter Visit Diagnoses Diagnosis Immunodeficiency Due To Drugs (HCC)- Primary Transplant Renal (HCC) Mismatch Cytomegalovirus documented in this encounter Additional Health Concerns Infection Onset Date Last Indicated Resolved Time Protective Environment 03/08/2023 03/08/2023 Assessment Noted Time PHQ-9 Depression Total Score: 1 11/23/20 19 7:04 PM [employer] LAYUP LINE CORE LAYER documented as of this encounter Care Teams Roper Operator Relationship Specialty Start Date End Date Elsewhere, Pcp PCP - General Overage Shortage And Damage Clerk 11/24/[address] [phone] Laboratory Medicine 09/18/20 documented as of this encounter
--- OUTSIDE RECORDS SUMMARY | 2024-03-12 05:55 | XMS_ITS | Encounter Summary ---
Author Name Unknown Organization [facility] Address [address] [place] [address] Care Team Providers Care Field Ironworker Name Role Phone Elsewhere, Pcp Primary Care Provider Unavailabl e Reason for Referral * Outpatient (Routine) - Closed Specialty Diagnoses / Procedures Referred By Benedicto tan Referred To Contact Diagnoses Transplant Renal (HCC) Procedures US Kidney Transplant Biopsy Left Juan Grier APRN, C.NBev, M.S.N. 200 [place] [phone] [facility] Referral ID Status Reason Start Date Expiration Date Visits Re quested Visits Authorized [id number] Closed 01/15/2024 01/14/2025 1 1 Reason for Visit * Outpatient (Routine) - Closed Specialty Diagnoses / Procedures Referred By Benedicto tan Referred To Contact Diagnoses Transplant Renal (HCC) Procedures US Kidney Transplant Biopsy Left Juan Grier APRN, C.NBev, M.S.N. [address] [place] [phone] [facility] Referral ID Status Reason Start Date Expiration Date Visits Re quested Visits Authorized [id number] Closed 01/15/2024 01/14/2025 1 1 Encounter Details Date Type Department Care Team (Latest Contact Info) Description 02/08/2024 9:58 AM CDT - 02/08/2024 1:32 PM CDT Hospital Encounter Outpatient Surgery Unit in [place], [place] [address] [place] [phone] Juan Grier APRN, C.N.P., M.S.N. [address] [place] [phone] Transplant Renal (HCC) Discharge Disposition: Home or [...] 02/13/2023 How often do you attend chur or catholic services? 1 to 4 times per year 02/13/2023 Do you belong to any clubs o r organizations such as yazidism groups, unions, fraternal or athletic groups, or [...] Answer Date Recorded PHQ-2 Score 0 09/10/2023 [facility] - Occupational Stress Questionnaire Answer Date Recorded [...] Sex Assigned at Female 11/13/2018 9:36 AM DEAF/HARD OF HEARING SPECIALIST Gender Identity Female 11/13/2018 9:36 AM DEAF/HARD OF HEARING SPECIALIST Sexual Orientation Straight 11/13/2018 9: 36 AM DEAF/HARD OF HEARING SPECIALIST documented as of this encounter Last Filed Vital Signs Vital Sign Reading Time Taken Comments Blood Pressure 130/70 02/08/2024 1:29 PM CDT Pulse 78 02/08/2024 1:29 PM CDT Temperature 36.5 ??C (97.7 ??F) 02/08/2024 11:33 AM C DT Respiratory Rate 16 02/08/2024 1:29 PM CDT Oxygen Saturation 95% 02/08/2024 11:33 AM CDT Inhaled Oxygen Concentration - - Weight - - Height - - Body Mass Index - - documented in this encounter Discharge Instructions * Attachments The following attachments cannot be sent through Care Everywhere. * Care Following a Needle Biopsy (Chinese) documented in this encounter Medications at Time [...] carvediloL (COREG) 12.5 mg tabletIndications:[place] splant Renal ([facility]),Hypertension Essential Primary,Diabetes Mellitus Drug Or Chemical Induced With Hyperglycemia ([facility]) Take 1 tablet (12.5 mg total) by [...] tacrolimus (PROGRAF) 1 mg capsuleIndications:Tra nsplant Renal ([facility]),Immunodeficiency Due To Drugs ([facility]),High 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 Take 1 capsule (1 mg [...] by mouth daily. 30 capsule 09/03/2023 03/10/2024 magnesium chloride (SLOW-MAG) 71.[address] tablet Take 2 tablets (143 mg total) by mouth 2 (two) times a day before breakfast and dinner. Do not crush or chew. 02/08/2024 02/11/2024 pentamidine (NEBUPENT) 50 mg/mL inhalation solution Inhale 300 mg as directed. First dose 09/01/23 02/21/2024 documented as of this encounter Plan of Treatment Upcoming Encounters Date Type Department Care Team (Latest Contact Info) Description 03/17/2024 7:20 AM CDT Appointment Department of Laboratory Medicine in [address] [phone] Angelica Hutchins M.D. [address] [place] [phone] 03/24/2024 7:10 AM CDT Appointment Department of Laboratory Medicine in [address] [phone] Juan Grier, STUART, C.N.P., M.S.N. [address] [place] [phone] 03/24/2024 7:20 AM CDT Appointment Department of Laboratory Medicine in [address] [phone] Angelica Hutchins M.D. [address] [place] [phone] 04/07/2024 8:20 AM CDT Appointment Department of Laboratory Medicine in [address] [phone] Angelica Hutchins M.D. [address] [place] [phone] 04/14/2024 8:00 AM CDT Appointment Department of Laboratory Medicine in [address] [phone] Angelica Hutchins M.D. [address] [place] [phone] 04/15/2024 2:00 PM CDT Clinical Communication Virtual Review in [address] [address] 04/17/2024 11:00 AM CDT Office Visit Department of Neurology in [address] [phone] Wang Bass M.D. [address] [place] [phone] 04/22/2024 7:20 AM CDT Appointment Department of Laboratory Medicine in [address] [phone] Angelica Hutchins M.D. [address] [place] [phone] 04/28/2024 7:20 AM CDT Appointment Department of Laboratory Medicine in [address] [phone] Angelica Hutchins M.D. [address] [place] [phone] 04/28/2024 7:40 AM CDT Appointment Department of Laboratory Medicine in [address] [phone] Angelica Hutchins M.D. [address] [place] [phone] 05/05/2024 7:50 AM CDT Appointment Department of Laboratory Medicine in [address] [phone] Angelica Hutchins M.D. [address] [place] [phone] 05/12/2024 7:20 AM CDT Appointment Department of Laboratory Medicine in [address] [phone] Angelica Hutchins M.D. [address] [place] [phone] 05/19/2024 7:20 AM CDT Appointment Department of Laboratory Medicine in [address] [phone] Angelica Hutchins M.D. [address] [place] [phone] 05/26/2024 7:20 AM CDT Appointment Department of Laboratory Medicine in [address] [phone] Angelica Hutchins M.D. [address] [place] [phone] 05/26/2024 7:30 AM CDT Appointment Department of Laboratory Medicine in [address] [phone] Angelica Hutchins M.D. [address] [place] [phone] 06/02/2024 7:20 AM CDT Appointment Department of Laboratory Medicine in [address] [phone] Angelica Hutchins M.D. [address] [place] [phone] 06/30/2024 7:20 AM CDT Appointment Department of Laboratory Medicine in [address] [phone] Angelica Hutchins M.D. [address] [place] [phone] 06/30/2024 7:30 AM CDT Appointment Department of Laboratory Medicine in [address] [phone] Angelica Hutchins M.D. [address] [place] [phone] 07/29/2024 7:20 AM CDT Appointment Department of Laboratory Medicine in [address] [phone] Angelica Hutchins M.D. [address] [place] [phone] 07/29/2024 7:30 AM CDT Appointment Department of Laboratory Medicine in [address] [phone] Angelica Hutchins M.D. [address] [place] [phone] documented as of this encounter Procedures Procedure Name Priority Date/Time Associated Diagnosis Comments US KIDNEY TRANSPLANT BIOPSY LEFT RAD - Routine (most inpatients and all outpatients) 02/08/2024 11:20 AM CDT Transplant Renal (HCC) RENAL PATHOLOGY Routine 02/08/2024 11:06 AM CDT Transplant Renal (HCC) documented in this encounter Results * US Kidney Transplant Biopsy Left (02/08/2024 [...] renal allograft biopsy. NR Juan Grier APRN C.N.PSravanthi, M.S.N. IMG US PROCEDURES * Renal Pathology [...] developed and its performance characteristics determined by [facility] in a manner consistent with CLIA requirements. [...] are no features of active antibody-mediated or T-losu-lpidlkeq rejection. MICROSCOPIC DESCRIPTION LIGHT MICROSCOPY: ??Tissue sections [...] nephropathy: ??No Glomerular Disease (non-alloimmune): No Recurrent kaguyuk disease: No Digital imaging was used in the diagnostic assessment of this case. 02/13/2024 5:19 PM CDT DRBX Biopsy (Kidney, Left) 02/08/2024 11:06 AM CDT Iain Stewart APRN.N.P., M.S.N. LAB PATH RENAL ORDERABLES [facility] [address] [place] [address], [facility] DRBX [address] [place] [address] documented in this encounter Visit Diagnoses Diagnosis Transplant Renal (HCC) documented in this encounter Administered Medications Inactive Administered Medications - up to 3 most recent administrations Medication Order MAR Action Action Date Dose Rate Site acetaminophen tablet 1,000 mg (TYLENOL) 1,000 mg, oral, Every 6 hours PRN, mild pain or score 1-3 of 10, first line option, Starting on Sun02/08/24 at 1135 Given 02/08/2024 11:59 AM CDT 1,000 mg dexAMETHasone injection 4 mg (DECADRON) 4 mg, intravenous, Once as needed, nausea, vomiting, Starting on Sun02/08/24 at 1135, For 1 dose, Give only if NOT given during the pre or intraoperative period. If ondansetron ordered, give dexamethasone with first dose of ondansetron. lidocaine 10 mg/mL (1 %) injection (XYLOCAINE) As needed, Starting on Sun02/08/24 at 1114, Intra-Op Given 02/08/2024 11:14 AM CDT 10 mL Left Lower Abdomen ondansetron (PF) injection 4 mg (ZOFRAN) 4 mg, intravenous, Every 6 hours PRN, vomiting, nausea, Starting on Sun02/08/24 at 1135, Reassess for nausea or vomiting after at least 10 minutes. If nausea or vomiting persists administer next ordered antiemetic medications (order for antiemetic medication administration ondansetron then prochlorperazine). documented in this encounter Active and Recently Administered Medications Times are shown in CDT. PRN Medication Order 02/06/2024 02/07/2024 02/08/2024 acetaminophen tablet 1,000 mg (TYLENOL) 1,000 mg, oral, Every 6 hours PRN, mild pain or score 1-3 of 10, first line option, Starting on Sun02/08/24 at 1135 1159 (Given - Provid er: Angelica Guy R.N.) dexAMETHasone injection 4 mg (DECADRON) 4 mg, intravenous, Once as needed, nausea, vomiting, Starting on Sun02/08/24 at 1135, For 1 dose, Give only if NOT given during the pre or intraoperative period. If ondansetron ordered, give dexamethasone with first dose of ondansetron. lidocaine 10 mg/mL (1 %) injection (XYLOCAINE) (COMPLETED) As needed, Starting on Sun02/08/24 at 1114, Intra-Op 1114 (Given - Provid er: Grant Mcallister M.D.) ondansetron (PF) injection 4 mg (ZOFRAN) 4 mg, intravenous, Every 6 hours PRN, vomiting, nausea, Starting on Sun02/08/24 at 1135, Reassess for nausea or vomiting after at least 10 minutes. If nausea or vomiting persists administer next ordered antiemetic medications (order for antiemetic medication administration ondansetron then prochlorperazine). documented in this encounter Additional Health Concerns Infection Onset Date Last Indicated Resolved Time Protective Environment 03/08/2023 03/08/2023 Assessment Noted Time PHQ-9 Depression Total Score: 1 11/23/20 19 7:04 PM DEAF/HARD OF HEARING SPECIALIST documented as of this encounter Care Teams Field Ironworker Relationship Specialty Start Date End Date Elsewhere, Pcp PCP - General Conference Director 11/24/19 [place] [phone] Laboratory Medicine 09/18/20 documented as of this encounter
--- OUTSIDE RECORDS SUMMARY | 2024-03-12 05:55 | XMS_ITS | Encounter Summary ---
Author Name Unknown Organization [facility] Address [address] [place] [address] Care Team Providers Care Tank Carpenter Name Role Phone Elsewhere, Pcp Primary Care Provider Unavailabl e Encounter Details Date Type Department Care Team (Latest Contact Info) Description 02/14/2024 9:58 AM CDT - 02/14/2024 11:59 PM CDT Hospital Encounter Division of Pulmonary Medicine in [place], [place] [address] [place] [address] Radha Julian M.D. 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 1 to 4 times per year [...] Answer Date Recorded PHQ-2 Score 0 09/10/2023 [facility] [place] of Occupat ional Health - Occupational Stress [...] Sex Assigned at Female 11/13/2018 9:36 AM DIRECTOR OF FOOD AND BEVERAGE SERVICES Gender Identity Female 11/13/2018 9:36 AM DIRECTOR OF FOOD AND BEVERAGE SERVICES Sexual Orientation Straight 11/13/2018 9: 36 AM DIRECTOR OF FOOD AND BEVERAGE SERVICES documented as of this encounter Last Filed Vital Signs Vital Sign Reading Time Taken Comments Blood Pressure - - Pulse 80 02/14/2024 10:22 AM CDT Temperature - - Respiratory Rate - - Oxygen Saturation 97% 02/14/2024 10:22 AM CDT Inhaled Oxygen Concentration - - [...] not crush or chew. 540 tablet 3 02/11/2024 02/21/2024 pentamidine (NEBUPENT) 50 mg/mL inhalation solution Inhale 300 mg as directed. First dose 09/01/23 02/21/2024 documented as of this encounter Progress Notes * Rowdy Ibanez R.R.T., Mookie, MIRA-ELECTRICAL HARDWARE ENGINEER - 02/14/2024 10:22 AM CDT Mrs. Holley Santos arrived in [facility] for out-patient Pentamidine treatment. Pre-treated with albuterol nebulizer, patient tolerated well. Aerosol generating procedure done wearing N95 mask. Electronically signed by: Rowdy Ibanez R.R.T., Mookie, MIRA-ELECTRICAL HARDWARE ENGINEER 02/14/24 10:22 AM CDT Electronically signed by Rowdy Ibanez R.R.T., MIRA Damico-ELECTRICAL HARDWARE ENGINEER at 02/14/2024 10:22 AM CDT documented in this encounter Plan of Treatment Upcoming Encounters Date Type Department Care Team (Latest Contact Info) Description 03/17/2024 7:20 AM CDT Appointment Department of Laboratory Medicine in [address] [phone] Angelica Hutchins M.D. [address] [place] [phone] 03/24/2024 7:10 AM CDT Appointment Department of Laboratory Medicine in [address] [phone] Juan Grier, STUART, C.N.P., M.S.N. [address] [place] [phone] 03/24/2024 7:20 AM CDT Appointment Department of Laboratory Medicine in [address] [phone] Angelica Hutchins M.D. [address] [place] [phone] 04/07/2024 8:20 AM CDT Appointment Department of Laboratory Medicine in [address] [phone] Angelica Hutchins M.D. [address] [place] [phone] 04/14/2024 8:00 AM CDT Appointment Department of Laboratory Medicine in [address] [phone] Angelica Hutchins M.D. [address] [place] [phone] 04/15/2024 2:00 PM CDT Clinical Communication Virtual Review in [place], [place] [address] [place] [address] 04/17/2024 11:00 AM CDT Office Visit Department of Neurology in [place], [place] [address] [place] [phone] Wang Bass M.D. [address] [place] [phone] 04/22/2024 7:20 AM CDT Appointment Department of Laboratory Medicine in [address] [phone] Angelica Hutchins M.D. [address] [place] [phone] 04/28/2024 7:20 AM CDT Appointment Department of Laboratory Medicine in [address] [phone] Angelica Hutchins M.D. [address] [place] [phone] 04/28/2024 7:40 AM CDT Appointment Department of Laboratory Medicine in [address] [phone] Angelica Hutchins M.D. [address] [place] [phone] 05/05/2024 7:50 AM CDT Appointment Department of Laboratory Medicine in [address] [phone] Angelica Hutchins M.D. [address] [place] [phone] 05/12/2024 7:20 AM CDT Appointment Department of Laboratory Medicine in [address] [phone] Angelica Hutchins M.D. [address] [place] [phone] 05/19/2024 7:20 AM CDT Appointment Department of Laboratory Medicine in [address] [phone] Angelica Hutchins M.D. [address] [place] [phone] 05/26/2024 7:20 AM CDT Appointment Department of Laboratory Medicine in [address] [phone] Angelica Hutchins M.D. [address] [place] [phone] 05/26/2024 7:30 AM CDT Appointment Department of Laboratory Medicine in [address] [phone] Angelica Hutchins M.D. [address] [place] [phone] 06/02/2024 7:20 AM CDT Appointment Department of Laboratory Medicine in [address] [phone] Angelica Hutchins M.D. [address] [place] [phone] 06/30/2024 7:20 AM CDT Appointment Department of Laboratory Medicine in [address] [phone] Angelica Hutchins M.D. [address] [place] [phone] 06/30/2024 7:30 AM CDT Appointment Department of Laboratory Medicine in [address] [phone] Angelica Hutchins M.D. [address] [place] [phone] 07/29/2024 7:20 AM CDT Appointment Department of Laboratory Medicine in [address] [phone] Angelica Hutchins M.D. [address] [place] [phone] 07/29/2024 7:30 AM CDT Appointment Department of Laboratory Medicine in [address] [phone] Angelica Hutchins M.D. 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) documented in this encounter Administered Medications Inactive Administered Medications - up to 3 most recent administrations Medication Order MAR Action Action Date Dose Rate Site albuterol nebulizer solution 2.5 mg 2.5 mg, nebulization, Once, On Falguni 02/14/24 at 1030, For 1 dose Given 02/14/2024 10:02 AM CDT 2.5 mg pentamidine nebulizer solution (NEBUPENT) 300 mg (NEBUPENT) 300 mg, inhalation, Once, On Falguni 02/14/24 at 1045, For 1 dose, Indications: Prophylaxis, medical Given 02/14/2024 10:03 AM CDT 300 mg documented in this encounter Additional Health Concerns Infection Onset Date Last Indicated Resolved Time Protective Environment 03/08/2023 03/08/2023 Assessment Noted Time PHQ-9 Depression Total Score: 1 11/23/20 19 7:04 PM DIRECTOR OF FOOD AND BEVERAGE SERVICES documented as of this encounter Care Teams Tank Carpenter Relationship Specialty Start Date End Date Elsewhere, Pcp PCP - General Soil Surveyor 11/24/[address] [address] Laboratory Medicine 09/18/20 documented as of this encounter
--- OUTSIDE RECORDS SUMMARY | 2024-03-12 05:55 | XMS_ITS | Encounter Summary ---
Author Name Unknown Organization [facility] Address [address] [place] [address] Care Team Providers Care Veneer Drier Tailer Name Role Phone Elsewhere, Pcp Primary Care Provider Unavailabl e Reason for Visit * Reason Comments Med Refill Encounter Details Date Type Department Care Team (Late st Contact Info) Description 02/21/2024 Refill Joon millan [facility] in [place], [place] [address] [place] [phone] Sandra Chen, RSravanthiN. [address] [place] [phone] Med Refill Social History Tobacco Use Types [...] often do you attend chur ch or scientology services? 1 to 4 times per year 02/13/2023 Do you belong to any clubs o r organizations such as mormonism groups, unions, fraternal or athletic groups, or [...] Answer Date Recorded PHQ-2 Score 0 09/10/2023 [facility] [place] of Occupat ional Health - Occupational Stress [...] Sex Assigned at Female 11/13/2018 9:36 AM GAS METER MECHANIC Gender Identity Female 11/13/2018 9:36 AM GAS METER MECHANIC Sexual Orientation Straight 11/13/2018 9: 36 AM GAS METER MECHANIC documented as of this encounter Plan of Treatment Upcoming Encounters Date Type Department Care Team (Latest Contact Info) Description 03/17/2024 7:20 AM CDT Appointment Department of Laboratory Medicine in [address] [phone] Angelica Hutchins M.D. [address] [place] [phone] 03/24/2024 7:10 AM CDT Appointment Department of Laboratory Medicine in [address] [phone] Juan Grier, STUART, C.N.P., M.S.N. [address] [place] [phone] 03/24/2024 7:20 AM CDT Appointment Department of Laboratory Medicine in [address] [phone] Angelica Hutchins M.D. [address] [place] [phone] 04/07/2024 8:20 AM CDT Appointment Department of Laboratory Medicine in [address] [phone] Angelica Hutchins M.D. [address] [place] [phone] 04/14/2024 8:00 AM CDT Appointment Department of Laboratory Medicine in [address] [phone] Angelica Hutchins M.D. [address] [place] [phone] 04/15/2024 2:00 PM CDT Clinical Communication Virtual Review in [address] [address] 04/17/2024 11:00 AM CDT Office Visit Department of Neurology in [place], [place] [address] [place] [phone] Wang Bass M.D. [address] [place] [phone] 04/22/2024 7:20 AM CDT Appointment Department of Laboratory Medicine in [address] [phone] Angelica Hutchins M.D. [address] [place] [phone] 04/28/2024 7:20 AM CDT Appointment Department of Laboratory Medicine in [address] [phone] Angelica Hutchins M.D. [address] [place] [phone] 04/28/2024 7:40 AM CDT Appointment Department of Laboratory Medicine in [address] [phone] Angelica Hutchins M.D. [address] [place] [phone] 05/05/2024 7:50 AM CDT Appointment Department of Laboratory Medicine in [address] [phone] Angelica Hutchins M.D. [address] [place] [phone] 05/12/2024 7:20 AM CDT Appointment Department of Laboratory Medicine in [address] [address] Angelica Hutchins M.D. [address] [place] [phone] 05/19/2024 7:20 AM CDT Appointment Department of Laboratory Medicine in [address] [phone] Angelica Hutchins M.D. [address] [place] [phone] 05/26/2024 7:20 AM CDT Appointment Department of Laboratory Medicine in [address] [address] Angelica Hutchins M.D. [address] [place] [phone] 05/26/2024 7:30 AM CDT Appointment Department of Laboratory Medicine in [address] [address] Angelica Hutchins M.D. [address] [place] [phone] 06/02/2024 7:20 AM CDT Appointment Department of Laboratory Medicine in [address] [phone] Angeilca Hutchins M.D. [address] [place] [phone] 06/30/2024 7:20 AM CDT Appointment Department of Laboratory Medicine in [address] [address] Angelica Hutchins M.D. [address] [place] [phone] 06/30/2024 7:30 AM CDT Appointment Department of Laboratory Medicine in [address] [phone] Angelica Hutchins M.D. [address] [place] [phone] 07/29/2024 7:20 AM CDT Appointment Department of Laboratory Medicine in [address] [phone] Angelica Hutchins M.D. [address] [place] [phone] 07/29/2024 7:30 AM CDT Appointment Department of Laboratory Medicine in [address] [phone] Angelica Hutchins M.D. [address] [place] [phone] documented as of this encounter Visit Diagnoses Not on filedocumented in this encounter Additional Health Concerns Infection Onset Date Last Indicated Resolved Time Protective Environment 03/08/2023 03/08/2023 Assessment Noted Time PHQ-9 Depression Total Score: 1 11/23/20 19 7:04 PM GAS METER MECHANIC documented as of this encounter Care Teams Veneer Drier Tailer Relationship Specialty Start Date End Date Elsewhere, Pcp PCP - General Chief Clinical Officer 11/24/[address] [address] Laboratory Medicine 09/18/20 documented as of this encounter
--- OUTSIDE RECORDS SUMMARY | 2024-03-12 05:56 | XMS_ITS | Encounter Summary ---
Author Name Unknown Organization [facility] Address [address] [place] [address] Care Team Providers Care Supervisor Incising Name Role Phone Elsewhere, Pcp Primary Care Provider Unavailabl e Encounter Details Date Type Department Care Team (Latest Contact Info) Description 01/28/2024 7:20 AM KNOCKOUT MACHINE OPERATOR - 01/28/2024 11:59 PM KNOCKOUT MACHINE OPERATOR Hospital Encounter Department of Laboratory Medicine in [address] [phone] Juan Grier, STUART, C.N.P., M.S.N. 200 [place] [phone] Transplant Renal (HCC); High 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; Immunodeficiency [...] often do you attend chur ch or jehovah's witness services? 1 to 4 times per year 02/13/2023 Do you belong to any clubs o r organizations such as cheondoism groups, unions, fraternal or athletic groups, or [...] Answer Date Recorded PHQ-2 Score 0 09/10/2023 [facility] of Occupat ional Health - Occupational [...] place to sleep or slept in a longterm (including now)? No 02/13/2023 Depression Answer Date [...] Sex Assigned at Female 11/13/2018 9:36 AM KNOCKOUT MACHINE OPERATOR Gender Identity Female 11/13/2018 9:36 AM KNOCKOUT MACHINE OPERATOR Sexual Orientation Straight 11/13/2018 9: 36 AM KNOCKOUT MACHINE OPERATOR documented as of this encounter Medications at [...] 200 mg by mouth every evening. 09/26/2021 valGANciclovir (VALCYTE) 450 mg tablet Take 2 tablets (900 mg total) by mouth daily. Dose may change based on kidney function. End date 02/27/2024 60 tablet 5 08/31/2023 02/27/2024 calcitRIOL (ROCALTROL) 0.25 mcg capsule Take 1 capsule (0.25 mcg total) by mouth daily. 30 capsule 09/03/2023 03/10/2024 carvediloL (COREG) 12.5 mg tabletIndications:[place] splant Renal (HCC),Hypertension Essential Primary,Diabetes Mellitus 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) Take 2 tablets (25 mg total) by mouth 2 (two) times a day with meals. 360 tablet 3 11/07/2023 02/08/2024 magnesium chloride (SLOW-MAG) 71.[address] tablet Take 2 tablets (143 mg total) by mouth every morning before breakfast. Do not crush or chew. 60 tablet 11 09/10/2023 02/08/2024 pentamidine (NEBUPENT) 50 mg/mL inhalation solution Inhale 300 mg as directed. First dose 09/01/23 02/21/2024 sodium bicarbonate 650 mg tablet Take 1 tablet (650 mg total) by mouth 2 (two) times a day. 180 tablet 3 01/18/2024 02/08/2024 tacrolimus (PROGRAF) 1 mg capsuleIndications:Imm unodeficiency Due To Drugs (HCC),High 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,Transplant Renal (HCC) Take 1 capsule (1 mg total) by mouth 2 (two) times a day. 180 capsule 3 11/23/2023 01/29/2024 documented as of this encounter Plan of Treatment Upcoming Encounters Date Type Department Care Team (Latest Contact Info) Description 03/17/2024 7:20 AM CDT Appointment Department of Laboratory Medicine in [address] [phone] Angelica Hutchins M.D. [address] [place] [phone] 03/24/2024 7:10 AM CDT Appointment Department of Laboratory Medicine in [address] [phone] Juan Grier, STUART, C.N.P., M.S.N. [address] [place] [phone] 03/24/2024 7:20 AM CDT Appointment Department of Laboratory Medicine in [address] [phone] Angelica Hutchins M.D. [address] [place] [phone] 04/07/2024 8:20 AM CDT Appointment Department of Laboratory Medicine in [address] [phone] Angelica Hutchins M.D. [address] [place] [phone] 04/14/2024 8:00 AM CDT Appointment Department of Laboratory Medicine in [address] [phone] Angelica Hutchins M.D. [address] [place] [phone] 04/15/2024 2:00 PM CDT Clinical Communication Virtual Review in [address] [address] 04/17/2024 11:00 AM CDT Office Visit Department of Neurology in [address] [phone] Wang Bass M.D. [address] [place] [phone] 04/22/2024 7:20 AM CDT Appointment Department of Laboratory Medicine in [address] [phone] Angelica Hutchins M.D. [address] [place] [phone] 04/28/2024 7:20 AM CDT Appointment Department of Laboratory Medicine in [address] [phone] Angelica Hutchins M.D. [address] [place] [phone] 04/28/2024 7:40 AM CDT Appointment Department of Laboratory Medicine in [address] [phone] Angelica Hutchins M.D. [address] [place] [phone] 05/05/2024 7:50 AM CDT Appointment Department of Laboratory Medicine in [address] [phone] Angelica Hutchins M.D. [address] [place] [phone] 05/12/2024 7:20 AM CDT Appointment Department of Laboratory Medicine in [address] [phone] Angelica Hutchins M.D. [address] [place] [phone] 05/19/2024 7:20 AM CDT Appointment Department of Laboratory Medicine in [address] [phone] Angelica Hutchins M.D. [address] [place] [phone] 05/26/2024 7:20 AM CDT Appointment Department of Laboratory Medicine in [address] [phone] Angelica Hutchins M.D. [address] [place] [phone] 05/26/2024 7:30 AM CDT Appointment Department of Laboratory Medicine in [address] [phone] Angelica Hutchins M.D. [address] [place] [phone] 06/02/2024 7:20 AM CDT Appointment Department of Laboratory Medicine in [address] [phone] Angelica Hutchins M.D. [address] [place] [phone] 06/30/2024 7:20 AM CDT Appointment Department of Laboratory Medicine in [address] [phone] Angelica Hutchins M.D. [address] [place] [phone] 06/30/2024 7:30 AM CDT Appointment Department of Laboratory Medicine in [address] [phone] Angelica Hutchins M.D. [address] [place] [phone] 07/29/2024 7:20 AM CDT Appointment Department of Laboratory Medicine in [address] [phone] Angelica Hutchins M.D. [address] [place] [phone] 07/29/2024 7:30 AM CDT Appointment Department of Laboratory Medicine in [address] [phone] Angelica Hutchins M.D. 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) BKV DNA DETECT/QUANT, P Routine 01/28/2024 7:34 AM KNOCKOUT MACHINE OPERATOR Transplant Renal (HCC) High 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 Immunodeficiency Due To Drugs (HCC) CBC WITH DIFFERENTIAL, B Routine 01/28/2024 7:34 AM KNOCKOUT MACHINE OPERATOR Aftercare Transplant Renal (HCC) High 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) HEMOGLOBIN A1C, B Routine 01/28/2024 7:3 4 AM KNOCKOUT MACHINE OPERATOR Diabetes Mellitus 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) BASIC METABOLIC PANEL, S/P Routine 01/28/2024 7:34 AM KNOCKOUT MACHINE OPERATOR Aftercare Transplant Renal (HCC) High 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 01/29/2024 10:37 AM KNOCKOUT MACHINE OPERATOR ECLR Urine (Urine, Midstream) 01/28/2024 7:41 AM KNOCKOUT MACHINE OPERATOR 01/28/2024 2:51 PM KNOCKOUT MACHINE OPERATOR Comment:Specimen Source Site : Urine Cristofer Castillo M.D. LAB MICROBIOLOGY - G ENERAL ORDERABLES [facility] [address] [place] [id number], [facility] ECLR [place] [address] * (ABNORMAL) Urinalysis, with Microscopic: Urine, Midstream (01/28/2024 7:41 AM KNOCKOUT MACHINE OPERATOR) Source Urine, Urine, Midstream 01/28/2024 7:41 AM KNOCKOUT MACHINE OPERATOR CNFL Clarity Clear Clear 01/28/2024 7:47 AM KNOCKOUT MACHINE OPERATOR [facility] Color Yellow 01/28/2024 7:47 AM KNOCKOUT MACHINE OPERATOR [facility]FL Comment: ----REFERENCE VALUE---- Colorless Yellow Danielle Blood Negative Negative 01/28/2024 7:47 AM KNOCKOUT MACHINE OPERATOR CNFL Nitrite Negative Negative 01/28/2024 7:47 AM KNOCKOUT MACHINE OPERATOR CNFL Leukocyte Esterase Negative Negative 01/28/2024 7:47 AM KNOCKOUT MACHINE OPERATOR CNFL Protein Negative mg/dL 01/28/2024 7:47 AM KNOCKOUT MACHINE OPERATOR [facility] Comment: ----REFERENCE VALUE---- Negative Trace Glucose Negative Negative mg/dL 01/28/2024 7:47 AM KNOCKOUT MACHINE OPERATOR CNFL Ketones, QI(U) Negative Negative mg/dL 01/28/2024 7:47 AM KNOCKOUT MACHINE OPERATOR CNFL Bilirubin Negative Negative 01/28/2024 7:47 AM KNOCKOUT MACHINE OPERATOR CN[facility] pH 5.5 5.0 - 8.0 01/28/2024 7:47 AM KNOCKOUT MACHINE OPERATOR [facility] Specific [place] 1.015 1.001 - 1.035 01/28/2024 7:47 AM KNOCKOUT MACHINE OPERATOR CNFL Urobilinogen 0.2 0.2 - 1.0 mg/dL 01/28/2024 7:47 AM KNOCKOUT MACHINE OPERATOR CNFL White Blood Cells Occ-3 /hpf 01/28/2024 7:57 AM KNOCKOUT MACHINE OPERATOR CNFL Comment: ----REFERENCE VALUE---- Males: 0-3 Females: 0-10 Unknown: 0-10 Red Blood Cells None Seen 0 - 2 /hpf 7:57 AM KNOCKOUT MACHINE OPERATOR CNFL Squamous Cells 4-10 /hpf 01/28/2024 7:57 AM KNOCKOUT MACHINE OPERATOR CNFL Bacteria Present(A) None Seen 01/28/2024 7:57 AM KNOCKOUT MACHINE OPERATOR CNFL Urine (Urine, Midstream) 01/28/2024 7:41 AM KNOCKOUT MACHINE OPERATOR 01/28/2024 7:41 AM KNOCKOUT MACHINE OPERATOR Cristofer Castillo M.D. LAB URINE ORDERABLES [facility] [address] [place] [address], [facility] CNFL [place] [address] * (ABNORMAL) CBC with Differential, Blood (01/28/2024 7:34 AM KNOCKOUT MACHINE OPERATOR) Hemoglobin 10.8(L) 11.6 - 15.0 g/dL 01/28/2024 7:41 AM KNOCKOUT MACHINE OPERATOR CNFL Hematocrit 32.7(L) 35.5 - 44.9 % 01/28/2024 7:41 AM KNOCKOUT MACHINE OPERATOR CNFL Erythrocytes 3.51(L) 3.92 - 5.13 x10(12)/L 01/28/2024 7:41 AM KNOCKOUT MACHINE OPERATOR CNFL MCV 93.2 78.2 - 97.9 fL 01/28/2024 7:41 AM KNOCKOUT MACHINE OPERATOR CNFL RBC Distrib Width 13.6 12.2 - 16.1 % 01/28/2024 7:41 AM KNOCKOUT MACHINE OPERATOR CNFL Platelet Count 299 157 - 371 x10(9)/L 01/28/2024 7:41 AM KNOCKOUT MACHINE OPERATOR CNFL Leukocytes 8.9 3.4 - 9.6 x10(9)/L 01/28/2024 7:41 AM KNOCKOUT MACHINE OPERATOR CNFL Neutrophils 7.45(H) 1.56 - 6.45 x10(9)/L 01/28/2024 7:41 AM KNOCKOUT MACHINE OPERATOR CNFL Lymphocytes 0.98 0.95 - 3.07 x10(9)/L 01/28/2024 7:41 AM KNOCKOUT MACHINE OPERATOR CNFL Monocytes 0.36 0.26 - 0.81 x10(9)/L 01/28/2024 7:41 AM KNOCKOUT MACHINE OPERATOR CNFL Eosinophils 0.08 0.03 - 0.48 x10(9)/L 01/28/2024 7:41 AM KNOCKOUT MACHINE OPERATOR CNFL Basophils 0.05 0.01 - 0.08 x10(9)/L 01/28/2024 7:41 AM KNOCKOUT MACHINE OPERATOR CNFL Blood (Blood, Venous) 01/28/2024 7:34 AM KNOCKOUT MACHINE OPERATOR 01/28/2024 7:36 AM KNOCKOUT MACHINE OPERATOR Cristofer Castillo M.D. LAB BLOOD ADD-ON [facility] [address] [place] [address], [facility] CNFL [place] [address] * Basic Metabolic Panel (01/28/2024 7:34 AM KNOCKOUT MACHINE OPERATOR) Potassium, P 3.9 3.6 - 5.2 mmol/L 01/28/2024 7:54 AM KNOCKOUT MACHINE OPERATOR CNFL Sodium, P 137 135 - 145 mmol/L 01/28/2024 7:54 AM KNOCKOUT MACHINE OPERATOR CNFL Chloride, P 103 98 - 107 mmol/L 01/28/2024 7:54 AM KNOCKOUT MACHINE OPERATOR CNFL Bicarbonate, P 23 22 - 29 mmol/L 01/28/2024 7:54 AM KNOCKOUT MACHINE OPERATOR CNFL Anion Gap, P 11 7 - 15 01/28/2024 7:54 AM KNOCKOUT MACHINE OPERATOR CNFL BUN (Blood Urea Nitrogen), P 13 6 - 21 mg/dL 01/28/2024 7:54 AM KNOCKOUT MACHINE OPERATOR CNFL Creatinine 0.87 0.59 - 1.04 mg/dL 01/28/2024 7:54 AM KNOCKOUT MACHINE OPERATOR CNFL Estimated GFR (eGFR) 78 >=60 mL/min/BSA 01/28/2024 7:54 AM KNOCKOUT MACHINE OPERATOR CNFL Comment: Estimated GFR calculated using the 2020 CKD_EPI creatinine equation. Calcium, Total, P 8.9 8.6 - 10.0 mg/dL 01/28/2024 7:54 AM KNOCKOUT MACHINE OPERATOR CNFL Glucose, P 88 70 - 140 mg/dL 01/28/2024 7:54 AM KNOCKOUT MACHINE OPERATOR [place] Blood (Blood, Venous) 01/28/2024 7:34 AM KNOCKOUT MACHINE OPERATOR 01/28/2024 7:36 AM KNOCKOUT MACHINE OPERATOR Cristofer Castillo M.D. LAB BLOOD ADD-ON Performing Organization Address [facility]/[place] [address], [place] [address] * Hemoglobin A1c (01/28/2024 7:34 AM KNOCKOUT MACHINE OPERATOR) [facility] Hemoglobin A1c, B 5.1 4.2 - 5.6 % 01/28/2024 7:54 AM KNOCKOUT MACHINE OPERATOR [facility] Blood (Blood, Venous) 01/28/2024 7:34 AM KNOCKOUT MACHINE OPERATOR 01/28/2024 7:36 AM KNOCKOUT MACHINE OPERATOR Kaushal Cuenca M.D. LAB BLOOD ADD-ON Performing Organization Address [facility] [place] [address], [place] [address] * (ABNORMAL) BKV DNA Detect/Quant (01/28/2024 7:34 AM KNOCKOUT MACHINE OPERATOR) Pathologist [facility] BKV DNA Detect/Quant, P 163(A) Undetected IU/mL 01/29/2024 2:08 PM KNOCKOUT MACHINE OPERATOR [facility] Comment: Result in log IU/mL is 2.21. ----ADDITIONAL INFORMATION---- The quantification range of this assay is 22 to 100,000,000 IU/mL (1.34 log to 8.00 log IU/mL). Testing was performed using the chari BKV test ([employer] Blood (Blood, Venous) 01/28/2024 7:34 AM KNOCKOUT MACHINE OPERATOR 01/29/2024 9:21 AM KNOCKOUT MACHINE OPERATOR Juan Grier APRN, C.N.P., M.S.N. LAB MICROBIOLOGY - BLOOD ORDERABLES Performing Organization Address [facility] Co de Phone Number [facility] [address] [place] [address] [facility] [address] [place] [facility] [place] [address] * Tacrolimus, Trough (01/28/2024 7:33 AM KNOCKOUT MACHINE OPERATOR) [facility] Tacrolimus, Trough 5.0 5.0-15.0 (Trough) ng/mL 01/29/2024 10:03 AM KNOCKOUT MACHINE OPERATOR [facility] Comment: ----ADDITIONAL INFORMATION---- Target steady-state trough concentrations vary depending on the type of transplant, concomitant immunosuppression, clinical/institutional protocols, and time post-transplant. Results should be interpreted in conjunction with this clinical information and any physical signs/symptoms of rejection/toxicity. Testing performed by Liquid Chromatography-Tandem Mass Spectrometry (LC-MS/MS). This test was developed and its performance characteristics determined by [facility] in a manner consistent with CLIA requirements. This test has not been cleared or approved by the U.S. Food and Drug Administration. Blood (Blood, Venous) 01/28/2024 7:33 AM KNOCKOUT MACHINE OPERATOR 01/29/2024 7:21 AM KNOCKOUT MACHINE OPERATOR Cristofer Castillo M.D. LAB BLOOD NON ADD-ON Performing Organization Address [facility] Co de Phone Number [facility] [address] [place] [address] [facility] [address] [place] [address] [place] [address] * CMV DNA Detect / Quant, Plasma (01/28/2024 7:33 AM KNOCKOUT MACHINE OPERATOR) [facility] CMV DNA Detect/Quant, P Undetected Undetected IU/mL 01/29/2024 2:41 PM KNOCKOUT MACHINE OPERATOR [facility] Comment: Result in log IU/mL is Undetected. ----ADDITIONAL INFORMATION---- The quantification range of this assay is 35 to 10,000,000 IU/mL (1.54 log to 7.00 log IU/mL). Testing was performed using the chari CMV test ([employer] Blood (Blood, Venous) 01/28/2024 7:33 AM KNOCKOUT MACHINE OPERATOR 01/29/2024 9:21 AM KNOCKOUT MACHINE OPERATOR Cristofer Castillo M.D. LAB MICROBIOLOGY - B LOOD ORDERABLES [facility] [address] [place] [address] [facility] [address] [place] [address] [place] [address] documented in this encounter Visit Diagnoses Diagnosis Transplant Renal (HCC) High 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 Immunodeficiency Due To Drugs (HCC) Diabetes Mellitus 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) Aftercare Transplant Renal (HCC) documented in this encounter Additional Health Concerns Infection Onset Date Last Indicated Resolved Time Protective Environment 03/08/2023 03/08/2023 Assessment Noted Time PHQ-9 Depression Total Score: 1 11/23/20 19 7:04 PM KNOCKOUT MACHINE OPERATOR documented as of this encounter Care Teams Supervisor Incising Relationship Specialty Start Date End Date Elsewhere, Pcp PCP - General Comparative Sociology Professor 11/24/[address] [address] Laboratory Medicine 09/18/20 documented as of this encounter
--- OUTSIDE RECORDS SUMMARY | 2024-03-12 05:56 | XMS_ITS | Encounter Summary ---
Author Name Unknown Organization [facility] Address [address] [place] [address] Care Team Providers Care Consulting Sales Manager Name Role Phone Elsewhere, Pcp Primary Care Provider Unavailabl e Reason for Visit * Reason Comments Med Refill Encounter Details Date Type Department Care Team (Late st Contact Info) Description 01/27/2024 Refill Joon millan [facility] in [place], [place] [address] [place] [phone] Juan Grier, STUART, C.N.P., M.S.N. [address] [place] [address] Med Refill Social History Tobacco Use Types [...] often do you attend chur ch or gnosticist services? 1 to 4 times per year 02/13/2023 Do you belong to any clubs o r organizations such as advent groups, unions, fraternal or athletic groups, or [...] Answer Date Recorded PHQ-2 Score 0 09/10/2023 [facility] of Occupat ional Health - Occupational Stress [...] place to sleep or slept in a retirement (including now)? No 02/13/2023 Depression Answer Date [...] Sex Assigned at Female 11/13/2018 9:36 AM HAND PRESSER Gender Identity Female 11/13/2018 9:36 AM HAND PRESSER Sexual Orientation Straight 11/13/2018 9: 36 AM HAND PRESSER documented as of this encounter Miscellaneous Notes * Telephone Encounter - Bipin Chen R.N., RoxiTSravanthiC. - 01/28/2024 8:58 AM CST No longer taking PRESSER documented in this encounter Plan of Treatment Upcoming Encounters Date Type Department Care Team (Latest Contact Info) Description 03/17/2024 7:20 AM CDT Appointment Department of Laboratory Medicine in [address] [phone] Angelica Hutchins M.D. [address] [place] [phone] 03/24/2024 7:10 AM CDT Appointment Department of Laboratory Medicine in [address] [phone] Juan Grier, STUART, C.N.P., M.S.N. [address] [place] [phone] 03/24/2024 7:20 AM CDT Appointment Department of Laboratory Medicine in [address] [phone] Angelica Hutchins M.D. [address] [place] [phone] 04/07/2024 8:20 AM CDT Appointment Department of Laboratory Medicine in [address] [phone] Angelica Hutchins M.D. [address] [place] [phone] 04/14/2024 8:00 AM CDT Appointment Department of Laboratory Medicine in [address] [phone] Angelica Hutchins M.D. [address] [place] [phone] 04/15/2024 2:00 PM CDT Clinical Communication Virtual Review in [place], [place] 200 [place] [address] 04/17/2024 11:00 AM CDT Office Visit Department of Neurology in [address] [phone] Wang Bass M.D. [address] [place] [phone] 04/22/2024 7:20 AM CDT Appointment Department of Laboratory Medicine in [address] [phone] Angelica Hutchins M.D. [address] [place] [phone] 04/28/2024 7:20 AM CDT Appointment Department of Laboratory Medicine in [address] [phone] Angelica Hutchins M.D. [address] [place] [phone] 04/28/2024 7:40 AM CDT Appointment Department of Laboratory Medicine in [address] [phone] Angelica Hutchins M.D. [address] [place] [phone] 05/05/2024 7:50 AM CDT Appointment Department of Laboratory Medicine in [address] [phone] Angelica Hutchins M.D. [address] [place] [phone] 05/12/2024 7:20 AM CDT Appointment Department of Laboratory Medicine in [address] [phone] Angelica Hutchins M.D. [address] [place] [phone] 05/19/2024 7:20 AM CDT Appointment Department of Laboratory Medicine in [address] [phone] Angelica Hutchins M.D. [address] [place] [phone] 05/26/2024 7:20 AM CDT Appointment Department of Laboratory Medicine in [address] [phone] Angelica Hutchins M.D. [address] [place] [phone] 05/26/2024 7:30 AM CDT Appointment Department of Laboratory Medicine in [address] [phone] Angelica Hutchins M.D. [address] [place] [phone] 06/02/2024 7:20 AM CDT Appointment Department of Laboratory Medicine in [address] [phone] Angelica Hutchins M.D. [address] [place] [phone] 06/30/2024 7:20 AM CDT Appointment Department of Laboratory Medicine in [address] [phone] Angelica Hutchins M.D. [address] [place] [phone] 06/30/2024 7:30 AM CDT Appointment Department of Laboratory Medicine in [address] [phone] Angelica Hutchins M.D. [address] [place] [phone] 07/29/2024 7:20 AM CDT Appointment Department of Laboratory Medicine in [address] [phone] Angelica Hutchins M.D. [address] [place] [phone] 07/29/2024 7:30 AM CDT Appointment Department of Laboratory Medicine in [address] [phone] Angelica Hutchins M.D. [address] [place] [phone] documented as of this encounter Visit Diagnoses Diagnosis Transplant Renal (HCC) documented in this encounter Additional Health Concerns Infection Onset Date Last Indicated Resolved Time Protective Environment 03/08/2023 03/08/2023 COVID19 Pending 02/21/2024 02/21/2024 02/21/2024 3 :03 PM CDT Assessment Noted Time PHQ-9 Depression Total Score: 1 11/23/20 7:04 PM HAND PRESSER documented as of this encounter Care Teams Consulting Sales Manager Relationship Specialty Start Date End Date Elsewhere, Pcp PCP - General Bundle Tier And Labeler 11/24/19 [place] [phone] Laboratory Medicine 09/18/20 documented as of this encounter
--- OUTSIDE RECORDS SUMMARY | 2024-03-12 05:56 | XMS_ITS | Encounter Summary ---
Author Name Unknown Organization [facility] Address [address] [place] [address] Care Team Providers Care Pole Shaver Name Role Phone Elsewhere, Pcp Primary Care Provider Unavailabl e Reason for Visit * Reason Onset Date Comments Tacrolimus Adjustment Protocol 01/29/2024 Encounter Details Date Type Department Care Team (Latest Contact Info) Description 01/29/2024 Clinical Communication Joon Pe[facility] in [place], [place] [address] [place] [address] Charu Alicea, R.N. Tacrolimus Adjustment Protocol Social History Tobacco Use Types Packs/Day Years [...] often do you attend chur ch or buddhist services? 1 to 4 times per year 02/13/2023 Do you belong to any clubs o r organizations such as mandaen groups, unions, fraternal or athletic groups, or [...] Recorded PHQ-2 Score 0 09/10/2023 [facility] of Occupat ional Health - [...] Sex Assigned at Female 11/13/2018 9:36 AM TREATMENT TECHNICIAN Gender Identity Female 11/13/2018 9:36 AM TREATMENT TECHNICIAN Sexual Orientation Straight 11/13/2018 9: 36 AM TREATMENT TECHNICIAN documented as of this encounter Miscellaneous Notes * Telephone Encounter - Charu Alicea R.N. - 01/29/2024 10:41 AM TREATMENT TECHNICIAN Tacrolimus level of 5 not within target range of 6-8, per Tacrolimus Adjustment Protocol dose change recommended. Current dose 1mg twice daily New dose 1.5mg AM and 1mg PM Repeat tacrolimus level in 1-2 weeks TMENT TECHNICIAN documented in this encounter Plan of Treatment Upcoming Encounters Date Type Department Care Team (Latest Contact Info) Description 03/17/2024 7:20 AM CDT Appointment Department of Laboratory Medicine in [address] [phone] Angelica Hutchins M.D. [address] [place] [phone] 03/24/2024 7:10 AM CDT Appointment Department of Laboratory Medicine in [address] [phone] Juan Grier, STUART, C.N.P., M.S.N. [address] [place] [phone] 03/24/2024 7:20 AM CDT Appointment Department of Laboratory Medicine in [address] [phone] Angelica Hutchins M.D. [address] [place] [phone] 04/07/2024 8:20 AM CDT Appointment Department of Laboratory Medicine in [address] [phone] Angelica Hutchins M.D. [address] [place] [phone] 04/14/2024 8:00 AM CDT Appointment Department of Laboratory Medicine in [address] [phone] Angelica Hutchins M.D. [address] [place] [phone] 04/15/2024 2:00 PM CDT Clinical Communication Virtual Review in [place], [place] 200 [place] [address] 04/17/2024 11:00 AM CDT Office Visit Department of Neurology in [address] [phone] Wang Bass M.D. [address] [place] [phone] 04/22/2024 7:20 AM CDT Appointment Department of Laboratory Medicine in [address] [phone] Angelica Hutchins M.D. [address] [place] [phone] 04/28/2024 7:20 AM CDT Appointment Department of Laboratory Medicine in [address] [address] Angelica Hutchins M.D. [address] [place] [phone] 04/28/2024 7:40 AM CDT Appointment Department of Laboratory Medicine in [address] [address] Angelica Hutchins M.D. [address] [place] [phone] 05/05/2024 7:50 AM CDT Appointment Department of Laboratory Medicine in [address] [phone] Angelica Hutchins M.D. [address] [place] [phone] 05/12/2024 7:20 AM CDT Appointment Department of Laboratory Medicine in [address] [address] Angelica Hutchins M.D. [address] [place] [phone] 05/19/2024 7:20 AM CDT Appointment Department of Laboratory Medicine in [address] [address] Angelica Hutchins M.D. [address] [place] [phone] 05/26/2024 7:20 AM CDT Appointment Department of Laboratory Medicine in [address] [phone] Angelica Hutchins M.D. [address] [place] [phone] 05/26/2024 7:30 AM CDT Appointment Department of Laboratory Medicine in [address] [address] Angelica Hutchins M.D. [address] [place] [phone] 06/02/2024 7:20 AM CDT Appointment Department of Laboratory Medicine in [address] [phone] Angelica Hutchins M.D. [address] [place] [phone] 06/30/2024 7:20 AM CDT Appointment Department of Laboratory Medicine in [address] [address] Angelica Hutchins M.D. [address] [place] [phone] 06/30/2024 7:30 AM CDT Appointment Department of Laboratory Medicine in [address] [address] Angelica Hutchins M.D. [address] [place] [phone] 07/29/2024 7:20 AM CDT Appointment Department of Laboratory Medicine in [address] [phone] Angelica Hutchins M.D. [address] [place] [phone] 07/29/2024 7:30 AM CDT Appointment Department of Laboratory Medicine in [address] [phone] Angelica Hutchins M.D. 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
--- OUTSIDE RECORDS SUMMARY | 2024-03-12 05:56 | XMS_ITS | Encounter Summary ---
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 [address] [place] [phone] [facility] Referral ID Status Reason Start Date Expiration Date Visits Re quested Visits Authorized [id number] Closed 09/14/2023 09/13/2026 1 1 Encounter Details Date Type Department Care Team (Latest Contact Info) Description 01/28/2024 11:00 AM NUMERICAL TOOL PROGRAMMER Telemedicine Joon millan [facility] in [place], [place] [address] [place] [phone] Kimmy Mike M.D. [address] [place] [phone] Arielle Woodall M.S., RDN, LD [address] [place] [address] [place] [phone] Transplant Renal (HCC); Immunodeficiency Due To Drugs (HCC); High 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 Social History Tobacco Use Types Packs/Day Years [...] often do you attend chur ch or islam services? 1 to 4 times per year 02/13/2023 Do you belong to any clubs o r organizations such as jain groups, unions, fraternal or athletic groups, or [...] Answer Date Recorded PHQ-2 Score 0 09/10/2023 [facility] Occupat ional [facility] - Occupational Stress Questionnaire Answer Date [...] Sex Assigned at Female 11/13/2018 9:36 AM NUMERICAL TOOL PROGRAMMER Gender Identity Female 11/13/2018 9:36 AM NUMERICAL TOOL PROGRAMMER Sexual Orientation Straight 11/13/2018 9: 36 AM NUMERICAL TOOL PROGRAMMER documented as of this encounter Progress Notes * Arielle Woodall M.S., RDN, LD - 01/28/2024 11:00 AM CST CHIEF COMPLAINT/REASON FOR VISIT Ms. Holley Santos is referred for nutrition assessment and education. She is status post kidney transplant on 08/30/23. Met with patient via real-time audio/video technology by designer/writer in [place] to the patient in home. ASSESSMENT Relevant Social and Family History Living Situation: with family Patient has had two prior kidney transplants. Nutrition Focused Physical Findings Daily Activity: works from home, grocery shopping, chores Exercise: walking Strength Changes: improved significantly (able to open a jar of jam) GI Concerns: recent infection that caused nausea, on and off nausea at night Food/Nutrition Related History Appetite: pretty good Meals Per Day: 2 with snacks Diet: Works hard to keep hydrated. Diet improved - eats a vegetable/fruit 1-2 servings daily. Doesn't add salt to anything. Always reads nutrition labels. Meal plans ahead of the week. Eat out once aweek. 24 hour recall: Breakfast: toast or bagel Lunch: occasionally skips - nut/cheese/fruit snack pack Snack: varies but snacks consciously Dinner: spaghetti, brussel sprouts, bread; chicken, rice, vegetable Snack: ice cream occasionally Beverages: 2-3 bottles water, one V8 orange in morning Weight History Patient Weight: 01/15/24 : 72 kg 01/14/24 : 72.2 kg 11/06/23 : 72.3 kg 09/14/23 : 72.8 kg Ht Readings from Last 1 Encounters: 01/14/24 157.5 cm BMI Readings from Last 4 Encounters: 01/15/24 29.02 kg/m?? 01/14/24 29.11 kg/m?? 11/06/23 29.58 kg/m?? 09/14/23 28.91 kg/m?? Current Body Weight: 153-155 lbs (states she is back to pre-transplant) Recent Weight Changes: gone down after transplant Weight Trend: stable NUTRITION DIAGNOSIS Altered nutrition-related laboratory values (NC-2.2) related to moderate intake of high sugary foods as evidenced by triglycerides of 297 on 01/14/24. Nutrition Prescription/Recommendation Low sodium, Mediterranean style diet INTERVENTION Counseling: Commended fluid intake and low sodium diet. Patient had questions regarding potassium, phosphorous, and magnesium labs which had been low since transplant. Encouraged Holley to increase fruit and vegetable intake to 2-3 servings of each daily, especially bananas, oranges, tomatoes, potatoes to help keep potassium within range. Briefly reviewed foods high in phosphorous and magnesium, sending lists over the portal. Patient inquired best diets recommended for transplant recipients and weight loss. Discussed Mediterranean diet as well as strategies for weight loss such as increasing fruit and vegetable intake, plate methods for building meals, and increasing physical activity MONITORING AND EVALUATION: Nutrition parameter to monitor: weight, nutrition-related renal labs Desired Outcome: maintain weight/modest weight loss, labs within normal range Patient Goal(s): 1. Limit intake of high sugar foods and beverages. 2. Aim to consume 2-3 servings of fruits and 2-3 servings of vegetables daily. 3. Review lists of foods high in phosphorous and magnesium, include good sources in diet. 4. Increase physical activity as able. FOLLOW UP PLAN: Provided name and phone number if questions should arise. Follow-up appointment per protocol. Time spent via video consult (minutes): 25 RICAL TOOL PROGRAMMER documented in this encounter Plan of Treatment Upcoming Encounters Date Type Department Care Team (Latest Contact Info) Description 03/17/2024 7:20 AM CDT Appointment Department of Laboratory Medicine in [address] [phone] Angelica Hutchins M.D. [address] [place] [phone] 03/24/2024 7:10 AM CDT Appointment Department of Laboratory Medicine in [address] [phone] Juan Grier, STUART, C.N.P., M.S.N. [address] [place] [phone] 03/24/2024 7:20 AM CDT Appointment Department of Laboratory Medicine in [address] [phone] Angelica Hutchins M.D. [address] [place] [phone] 04/07/2024 8:20 AM CDT Appointment Department of Laboratory Medicine in [address] [phone] Angelica Hutchins M.D. [address] [place] [phone] 04/14/2024 8:00 AM CDT Appointment Department of Laboratory Medicine in [address] [phone] Angelica Hutchins M.D. [address] [place] [phone] 04/15/2024 2:00 PM CDT Clinical Communication Virtual Review in [address] [address] 04/17/2024 11:00 AM CDT Office Visit Department of Neurology in [place], [place] [address] [place] [phone] Wang Bass M.D. [address] [place] [phone] 04/22/2024 7:20 AM CDT Appointment Department of Laboratory Medicine in [address] [phone] Angelica Hutchins M.D. [address] [place] [phone] 04/28/2024 7:20 AM CDT Appointment Department of Laboratory Medicine in [address] [phone] Angelica Hutchins M.D. [address] [place] [phone] 04/28/2024 7:40 AM CDT Appointment Department of Laboratory Medicine in [address] [address] Angelica Hutchins M.D. [address] [place] [phone] 05/05/2024 7:50 AM CDT Appointment Department of Laboratory Medicine in [address] [phone] Angelica Hutchins M.D. [address] [place] [phone] 05/12/2024 7:20 AM CDT Appointment Department of Laboratory Medicine in [address] [address] Angelica Hutchins M.D. [address] [place] [phone] 05/19/2024 7:20 AM CDT Appointment Department of Laboratory Medicine in [address] [phone] Angelica Hutchins M.D. [address] [place] [phone] 05/26/2024 7:20 AM CDT Appointment Department of Laboratory Medicine in [address] [address] Angelica Hutchins M.D. [address] [place] [phone] 05/26/2024 7:30 AM CDT Appointment Department of Laboratory Medicine in [address] [address] Angelica Hutchins M.D. [address] [place] [phone] 06/02/2024 7:20 AM CDT Appointment Department of Laboratory Medicine in [address] [address] Angelica Hutchins M.D. [address] [place] [phone] 06/30/2024 7:20 AM CDT Appointment Department of Laboratory Medicine in [address] [address] Angelica Hutchins M.D. [address] [place] [phone] 06/30/2024 7:30 AM CDT Appointment Department of Laboratory Medicine in [address] [address] Angelica Hutchins M.D. [address] [place] [phone] 07/29/2024 7:20 AM CDT Appointment Department of Laboratory Medicine in [address] [address] Angelica Hutchins M.D. [address] [place] [phone] 07/29/2024 7:30 AM CDT Appointment Department of Laboratory Medicine in [address] [address] Angelica Hutchins M.D. 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
--- OUTSIDE RECORDS SUMMARY | 2024-03-12 05:56 | XMS_ITS | Encounter Summary ---
Author Name Unknown Organization [facility] Address [address] [place] [address] Care Team Providers Care Site Monitor Name Role Phone Elsewhere, Pcp Primary Care Provider Unavailabl e Encounter Details Date Type Department Care Team (Latest Contact Info) Description 01/18/2024 8:30 AM AUDIT CLERKS SUPERVISOR - 01/18/2024 11:59 PM [facility] Hospital Encounter Division of Pulmonary Medicine in [place], [place] [address] [place] [address] Radha Julian M.D. [address] [place] [phone] Immunodeficiency Due To Drugs (HCC) (Primary Dx); [...] often do you attend chur ch or jew services? 1 to 4 times per year 02/13/2023 Do you belong to any clubs o r organizations such as muslim groups, unions, fraternal or athletic groups, or [...] Answer Date Recorded PHQ-2 Score 0 09/10/2023 [facility] of Occupat ional Health - Occupational Stress [...] place to sleep or slept in a half-way (including now)? No 02/13/2023 Depression Answer Date [...] Sex Assigned at Female 11/13/2018 9:36 AM AUDIT CLERKS SUPERVISOR Gender Identity Female 11/13/2018 9:36 AM AUDIT CLERKS SUPERVISOR Sexual Orientation Straight 11/13/2018 9: 36 AM AUDIT CLERKS SUPERVISOR documented as of this encounter Last Filed Vital Signs Vital Sign Reading Time Taken Comments Blood Pressure - - Pulse 87 01/18/2024 9:04 AM AUDIT CLERKS SUPERVISOR Temperature - - Respiratory Rate - - Oxygen Saturation 98% 01/18/2024 9:04 AM AUDIT CLERKS SUPERVISOR Inhaled Oxygen Concentration - - Weight - [...] 200 mg by mouth every evening. 09/26/2021 cefdinir (OMNICEF) 300 mg capsule Take 1 capsule (300 mg total) by mouth 2 (two) times a day before breakfast and dinner for 10 days. 20 capsule 01/15/2024 01/25/2024 valGANciclovir (VALCYTE) 450 mg tablet Take 2 [...] mg as directed. First dose 09/01/23 02/21/2024 potassium chloride (K-TAB) 20 mEq CR tabletIndications:Mesa splant Renal (HCC) take 1 tablet by mouth every day 30 tablet 1 11/21/2023 01/28/2024 sodium bicarbonate 650 mg tablet Take 1 tablet (650 mg total) by mouth 2 (two) times a day. 180 tablet 3 01/18/2024 02/08/2024 tacrolimus (PROGRAF) 1 mg capsuleIndications:Imm unodeficiency Due To Drugs (HCC),High 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,Transplant Renal (HCC) Take 1 capsule (1 mg total) by mouth 2 (two) times a day. 180 capsule 3 11/23/2023 01/29/2024 documented as of this encounter Progress Notes * Adriana Toure R.R.T., L.R.T. - 01/18/2024 9:10 AM CST Mrs. Holley Santos arrived in [facility] for out-patient Pentamidine treatment. Pre-treated with albuterol nebulizer, patient tolerated well. Aerosol generating procedure done wearing N95 mask. Electronically signed by: Adriana Toure R.R.T., L.RSravanthiT. 01/18/24 9:10 AM AUDIT CLERKS SUPERVISOR T CLERKS SUPERVISOR documented in this encounter Plan of Treatment Upcoming Encounters Date Type Department Care Team (Latest Contact Info) Description 03/17/2024 7:20 AM CDT Appointment Department of Laboratory Medicine in [address] [phone] Angelica Hutchins M.D. [address] [place] [phone] 03/24/2024 7:10 AM CDT Appointment Department of Laboratory Medicine in [address] [phone] Juan Grier APRN, C.N.P., M.S.N. [address] [place] [phone] 03/24/2024 7:20 AM CDT Appointment Department of Laboratory Medicine in [address] [phone] Angelica Hutchins M.D. [address] [place] [phone] 04/07/2024 8:20 AM CDT Appointment Department of Laboratory Medicine in [address] [phone] Angelica Hutchins M.D. [address] [place] [phone] 04/14/2024 8:00 AM CDT Appointment Department of Laboratory Medicine in [address] [phone] Angelica Hutchins M.D. [address] [place] [phone] 04/15/2024 2:00 PM CDT Clinical Communication Virtual Review in [place], [place] [address] [place] [address] 04/17/2024 11:00 AM CDT Office Visit Department of Neurology in [place], [place] [address] [place] [phone] Wang Bass M.D. [address] [place] [phone] 04/22/2024 7:20 AM CDT Appointment Department of Laboratory Medicine in [address] [phone] Angelica Hutchins M.D. [address] [place] [phone] 04/28/2024 7:20 AM CDT Appointment Department of Laboratory Medicine in [address] [phone] Angelica Hutchins M.D. [address] [place] [address] [phone] 04/28/2024 7:40 AM CDT Appointment Department of Laboratory Medicine in [address] [phone] Angelica Hutchins M.D. [address] [place] [phone] 05/05/2024 7:50 AM CDT Appointment Department of Laboratory Medicine in [address] [phone] Angelica Hutchins M.D. [address] [place] [phone] 05/12/2024 7:20 AM CDT Appointment Department of Laboratory Medicine in [address] [phone] Angelica Hutchins M.D. [address] [place] [phone] 05/19/2024 7:20 AM CDT Appointment Department of Laboratory Medicine in [address] [phone] Angelica Hutchins M.D. [address] [place] [phone] 05/26/2024 7:20 AM CDT Appointment Department of Laboratory Medicine in [address] [phone] Angelica Hutchins M.D. [address] [place] [phone] 05/26/2024 7:30 AM CDT Appointment Department of Laboratory Medicine in [address] [phone] Angelica Hutchins M.D. [address] [place] [phone] 06/02/2024 7:20 AM CDT Appointment Department of Laboratory Medicine in [address] [phone] Angelica Hutchins M.D. [address] [place] [phone] 06/30/2024 7:20 AM CDT Appointment Department of Laboratory Medicine in [address] [phone] Angelica Hutchins M.D. [address] [place] [phone] 06/30/2024 7:30 AM CDT Appointment Department of Laboratory Medicine in [address] [phone] Angelica Hutchins M.D. [address] [place] [phone] 07/29/2024 7:20 AM CDT Appointment Department of Laboratory Medicine in [address] [phone] Angelica Hutchins M.D. [address] [place] [phone] 07/29/2024 7:30 AM CDT Appointment Department of Laboratory Medicine in [address] [phone] Angelica Hutchins M.D. 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 Transplant Renal (HCC) documented in this encounter Administered Medications Inactive Administered Medications - up to 3 most recent administrations Medication Order MAR Action Action Date Dose Rate Site albuterol nebulizer solution 2.5 mg 2.5 mg, nebulization, Once, On Sun01/18/24 at 0900, For 1 dose Given 01/18/2024 8:44 AM AUDIT CLERKS SUPERVISOR 2.5 mg pentamidine nebulizer solution (NEBUPENT) 300 mg (NEBUPENT) 300 mg, inhalation, Once, On Sun01/18/24 at 0915, For 1 dose, Indications: Prophylaxis, medical Given 01/18/2024 8:46 AM AUDIT CLERKS SUPERVISOR 300 mg documented in this encounter Additional Health Concerns Infection Onset Date Last Indicated Resolved Time Protective Environment 03/08/2023 03/08/2023 Assessment Noted Time PHQ-9 Depression Total Score: 1 11/23/20 19 7:04 PM AUDIT CLERKS SUPERVISOR documented as of this encounter Care Teams Site Monitor Relationship Specialty Start Date End Date Elsewhere, Pcp PCP - General Mobile Mechanic 11/24/[address] [address] Laboratory Medicine 09/18/20 documented as of this encounter
--- OUTSIDE RECORDS SUMMARY | 2024-03-12 05:56 | XMS_ITS | Encounter Summary ---
Author Name Unknown Organization [facility] Address [address] [place] [address] Care Team Providers Care Doctor Of Nurse Anesthesia Name Role Phone Elsewhere, Pcp Primary Care Provider Unavailabl e Reason for Visit * Reason Comments Med Refill Encounter Details Date Type Department Care Team (Late st Contact Info) Description 01/18/2024 Refill Joon millan [facility] in [place], [place] [address] [place] [address] Charu Alicea, R.N. Med Refill Social History Tobacco Use Types [...] How often do you attend chur or hinduism services? 1 to 4 times per year [...] Answer Date Recorded PHQ-2 Score 0 09/10/2023 [facility] - [...] place to sleep or slept in a long term (including now)? No 02/13/2023 Depression Answer Date [...] Sex Assigned at Female 11/13/2018 9:36 AM PATIENT ADVOCATE Gender Identity Female 11/13/2018 9:36 AM PATIENT ADVOCATE Sexual Orientation Straight 11/13/2018 9: 36 AM PATIENT ADVOCATE documented as of this encounter Plan of Treatment Upcoming Encounters Date Type Department Care Team (Latest Contact Info) Description 03/17/2024 7:20 AM CDT Appointment Department of Laboratory Medicine in [address] [address] Angelica Hutchins M.D. [address] [place] [phone] 03/24/2024 7:10 AM CDT Appointment Department of Laboratory Medicine in [address] [address] Juan Grier APRN, C.N.P., M.S.N. [address] [place] [phone] 03/24/2024 7:20 AM CDT Appointment Department of Laboratory Medicine in [address] [address] Angelica Hutchins M.D. [address] [place] [phone] 04/07/2024 8:20 AM CDT Appointment Department of Laboratory Medicine in [address] [address] Angelica Hutchins M.D. [address] [place] [phone] 04/14/2024 8:00 AM CDT Appointment Department of Laboratory Medicine in [address] [address] Angelica Hutchins M.D. [address] [place] [phone] 04/15/2024 2:00 PM CDT Clinical Communication Virtual Review in [address] [address] 04/17/2024 11:00 AM CDT Office Visit Department of Neurology in [place], [place] [address] [place] [phone] Wang Bass M.D. [address] [place] [phone] 04/22/2024 7:20 AM CDT Appointment Department of Laboratory Medicine in [address] [address] Angelica Hutchins M.D. [address] [place] [phone] 04/28/2024 7:20 AM CDT Appointment Department of Laboratory Medicine in [address] [address] Angelica Hutchins M.D. [address] [place] [phone] 04/28/2024 7:40 AM CDT Appointment Department of Laboratory Medicine in [address] [address] Angelica Hutchins M.D. [address] [place] [phone] 05/05/2024 7:50 AM CDT Appointment Department of Laboratory Medicine in [address] [address] Angelica Hutchins M.D. [address] [place] [phone] 05/12/2024 7:20 AM CDT Appointment Department of Laboratory Medicine in [address] [address] Angelica Hutchins M.D. [address] [place] [phone] 05/19/2024 7:20 AM CDT Appointment Department of Laboratory Medicine in [address] [address] Angelica Hutchins M.D. [address] [place] [phone] 05/26/2024 7:20 AM CDT Appointment Department of Laboratory Medicine in [address] [address] Angelica Hutchins M.D. [address] [place] [phone] 05/26/2024 7:30 AM CDT Appointment Department of Laboratory Medicine in [address] [address] Angelica Hutchins M.D. [address] [place] [phone] 06/02/2024 7:20 AM CDT Appointment Department of Laboratory Medicine in [address] [address] Angelica Hutchins M.D. [address] [place] [phone] 06/30/2024 7:20 AM CDT Appointment Department of Laboratory Medicine in [address] [address] Angelica Hutchins M.D. [address] [place] [phone] 06/30/2024 7:30 AM CDT Appointment Department of Laboratory Medicine in [address] [address] Angelica Hutchins M.D. [address] [place] [phone] 07/29/2024 7:20 AM CDT Appointment Department of Laboratory Medicine in [address] [address] Angelica Hutchins M.D. [address] [place] [phone] 07/29/2024 7:30 AM CDT Appointment Department of Laboratory Medicine in [address] [address] Angelica Hutchins M.D. [address] [place] [phone] documented as of this encounter Visit Diagnoses Not on filedocumented in this encounter Additional Health Concerns Infection Onset Date Last Indicated Resolved Time Protective Environment 03/08/2023 03/08/2023 Assessment Noted Time PHQ-9 Depression Total Score: 1 11/23/20 19 7:04 PM PATIENT ADVOCATE documented as of this encounter Care Teams Doctor Of Nurse Anesthesia Relationship Specialty Start Date End Date Elsewhere, Pcp PCP - General Cnc Mechanic 11/24/[address] [address] Laboratory Medicine 09/18/20 documented as of this encounter
--- OUTSIDE RECORDS SUMMARY | 2024-03-12 05:56 | XMS_ITS | Encounter Summary ---
Author Name Unknown Organization [facility] Address [address] [place] [address] Care Team Providers Care Associate Entertainment Editor Name Role Phone Elsewhere, Pcp Primary Care Provider Unavailabl e Encounter Details Date Type Department Care Team (Latest Contact Info) Description 01/29/2024 Clinical Communication [facility] [place], [place] [address] [place] [address] Sheryl Betancourt APRN, C.N.P., M.S.N. [address] [place] [address] Social History Tobacco Use Types Packs/Day Years [...] often do you attend chur ch or buddhism services? 1 to 4 times per year 02/13/2023 Do you belong to any clubs o r organizations such as rastafarian groups, unions, fraternal or athletic groups, or [...] Answer Date Recorded PHQ-2 Score 0 09/10/2023 [facility] [place] of Occupat ional Health - Occupational Stress [...] place to sleep or slept in a senior living (including now)? No 02/13/2023 Depression Answer Date [...] Sex Assigned at Female 11/13/2018 9:36 AM SUPERVISOR PLASTERING Gender Identity Female 11/13/2018 9:36 AM SUPERVISOR PLASTERING Sexual Orientation Straight 11/13/2018 9: 36 AM SUPERVISOR PLASTERING documented as of this encounter Plan of Treatment Upcoming Encounters Date Type Department Care Team (Latest Contact Info) Description 03/17/2024 7:20 AM CDT Appointment Department of Laboratory Medicine in [address] [phone] Angelica Hutchins M.D. [address] [place] [phone] 03/24/2024 7:10 AM CDT Appointment Department of Laboratory Medicine in [address] [phone] Juan Grier, STUART, C.N.P., M.S.N. [address] [place] [phone] 03/24/2024 7:20 AM CDT Appointment Department of Laboratory Medicine in [address] [address] Angelica Hutchins M.D. [address] [place] [phone] 04/07/2024 8:20 AM CDT Appointment Department of Laboratory Medicine in [address] [address] Angelica Hutchins M.D. [address] [place] [phone] 04/14/2024 8:00 AM CDT Appointment Department of Laboratory Medicine in [address] [address] Angelica Hutchins M.D. [address] [place] [phone] 04/15/2024 2:00 PM CDT Clinical Communication Virtual Review in [place], [place] 200 [place] [address] 04/17/2024 11:00 AM CDT Office Visit Department of Neurology in [place], [place] [address] [place] [phone] Wang Bass M.D. [address] [place] [phone] 04/22/2024 7:20 AM CDT Appointment Department of Laboratory Medicine in [address] [phone] Angelica Hutchins M.D. [address] [place] [phone] 04/28/2024 7:20 AM CDT Appointment Department of Laboratory Medicine in [address] [address] Angelica Hutchins M.D. [address] [place] [phone] 04/28/2024 7:40 AM CDT Appointment Department of Laboratory Medicine in [address] [address] Angelica Hutchins M.D. [address] [place] [phone] 05/05/2024 7:50 AM CDT Appointment Department of Laboratory Medicine in [address] [address] Angelica Hutchins M.D. [address] [place] [phone] 05/12/2024 7:20 AM CDT Appointment Department of Laboratory Medicine in [address] [address] Angelica Hutchins M.D. [address] [place] [phone] 05/19/2024 7:20 AM CDT Appointment Department of Laboratory Medicine in [address] [address] Angelica Hutchins M.D. [address] [place] [phone] 05/26/2024 7:20 AM CDT Appointment Department of Laboratory Medicine in [address] [address] Angelica Hutchins M.D. [address] [place] [phone] 05/26/2024 7:30 AM CDT Appointment Department of Laboratory Medicine in [address] [address] Angelica Hutchins M.D. [address] [place] [phone] 06/02/2024 7:20 AM CDT Appointment Department of Laboratory Medicine in [address] [address] Angelica Hutchins M.D. [address] [place] [phone] 06/30/2024 7:20 AM CDT Appointment Department of Laboratory Medicine in [address] [address] Angelica Hutchins M.D. [address] [place] [phone] 06/30/2024 7:30 AM CDT Appointment Department of Laboratory Medicine in [address] [address] Angelica Hutchins M.D. [address] [place] [phone] 07/29/2024 7:20 AM CDT Appointment Department of Laboratory Medicine in [address] [address] Angelica Hutchins M.D. [address] [place] [phone] 07/29/2024 7:30 AM CDT Appointment Department of Laboratory Medicine in [address] [address] Angelica Hutchins M.D. [address] [place] [phone] documented as of this encounter Visit Diagnoses Not on filedocumented in this encounter Additional Health Concerns Infection Onset Date Last Indicated Resolved Time Protective Environment 03/08/2023 03/08/2023 COVID19 Pending 02/21/2024 02/21/2024 02/21/2024 3 :03 PM CDT Assessment Noted Time PHQ-9 Depression Total Score: 1 11/23/20 19 7:04 PM SUPERVISOR PLASTERING documented as of this encounter Care Teams Associate Entertainment Editor Relationship Specialty Start Date End Date Elsewhere, Pcp PCP - General Deputy Sheriff 11/24/[address] [address] Laboratory Medicine 09/18/20 documented as of this encounter
--- OUTSIDE RECORDS SUMMARY | 2024-03-12 05:56 | XMS_ITS | Encounter Summary ---
Author Name Unknown Organization [facility] Address [address] [place] [address] Care Team Providers Care Web Services Manager Name Role Phone Elsewhere, Pcp Primary Care Provider Unavailabl e Encounter Details Date Type Department Care Team (Late st Contact Info) Description 01/21/2024 Orders Only Division of Gastroenterology in [place], [place] [address] [place] [phone] Elmer Parikh M.D. [address] [place] [address] Genetic Susceptibility To Disease Social History Tobacco Use Types Packs/Day Years [...] often do you attend chur ch or mormonism services? 1 to 4 times per year 02/13/2023 Do you belong to any clubs o r organizations such as congregation groups, unions, fraternal or athletic groups, or [...] Answer Date Recorded PHQ-2 Score 0 09/10/2023 [facility] of Occupat ional Health - Occupational Stress [...] place to sleep or slept in a intermediate (including now)? No 02/13/2023 Depression Answer Date [...] Sex Assigned at Female 11/13/2018 9:36 AM TRACK ANNOUNCER Gender Identity Female 11/13/2018 9:36 AM TRACK ANNOUNCER Sexual Orientation Straight 11/13/2018 9: 36 AM TRACK ANNOUNCER documented as of this encounter Plan of Treatment Upcoming Encounters Date Type Department Care Team (Latest Contact Info) Description 03/17/2024 7:20 AM CDT Appointment Department of Laboratory Medicine in [address] [address] Angelica Hutchins M.D. [address] [place] [phone] 03/24/2024 7:10 AM CDT Appointment Department of Laboratory Medicine in [address] [address] Juan Grier, STUART, C.N.P., M.S.N. [address] [place] [phone] 03/24/2024 7:20 AM CDT Appointment Department of Laboratory Medicine in [address] [phone] Angelica Hutchins M.D. [address] [place] [phone] 04/07/2024 8:20 AM CDT Appointment Department of Laboratory Medicine in [address] [address] Angelica Hutchins M.D. [address] [place] [phone] 04/14/2024 8:00 AM CDT Appointment Department of Laboratory Medicine in [address] [address] Angelica Hutchins M.D. [address] [place] [phone] 04/15/2024 2:00 PM CDT Clinical Communication Virtual Review in [address] [address] 04/17/2024 11:00 AM CDT Office Visit Department of Neurology in [place], [place] [address] [place] [phone] Wang Bass M.D. [address] [place] [phone] 04/22/2024 7:20 AM CDT Appointment Department of Laboratory Medicine in [address] [address] Angelica Hutchins M.D. [address] [place] [phone] 04/28/2024 7:20 AM CDT Appointment Department of Laboratory Medicine in [address] [address] Angelica Hutchins M.D. [address] [place] [phone] 04/28/2024 7:40 AM CDT Appointment Department of Laboratory Medicine in [address] [address] Angelica Hutchins M.D. [address] [place] [phone] 05/05/2024 7:50 AM CDT Appointment Department of Laboratory Medicine in [address] [address] Angelica Hutchins M.D. [address] [place] [phone] 05/12/2024 7:20 AM CDT Appointment Department of Laboratory Medicine in [address] [address] Angelica Hutchins M.D. [address] [place] [phone] 05/19/2024 7:20 AM CDT Appointment Department of Laboratory Medicine in [address] [address] Angelica Hutchins M.D. [address] [place] [phone] 05/26/2024 7:20 AM CDT Appointment Department of Laboratory Medicine in [address] [address] Angelica Hutchins M.D. [address] [place] [phone] 05/26/2024 7:30 AM CDT Appointment Department of Laboratory Medicine in [address] [address] Angelica Hutchins M.D. [address] [place] [phone] 06/02/2024 7:20 AM CDT Appointment Department of Laboratory Medicine in [address] [address] Angelica Hutchins M.D. [address] [place] [phone] 06/30/2024 7:20 AM CDT Appointment Department of Laboratory Medicine in [address] [address] Angelica Hutchins M.D. [address] [place] [phone] 06/30/2024 7:30 AM CDT Appointment Department of Laboratory Medicine in [address] [address] Angelica Hutchins M.D. [address] [place] [phone] 07/29/2024 7:20 AM CDT Appointment Department of Laboratory Medicine in [address] [address] Angelica Hutchins M.D. [address] [place] [phone] 07/29/2024 7:30 AM CDT Appointment Department of Laboratory Medicine in [address] [address] Angelica Hutchins M.D. [address] [place] [phone] documented as of this encounter Procedures Procedure Name Priority Date/Time Associated Diagnosis Comments EXT TAPESTRY Routine 03/27/2023 12:00 AM CDT Genetic Susceptibility To Disease documented in this encounter Results * EXT Tapestry (03/27/2023 12:00 AM CDT) Gene Studied BRCA1,BRCA2,MLH1,MSH 2, MSH6,PMS2,EPCAM,APOB,L DLR,LDLRAP1,PCSK9 04/19/2023 12:00 AM CDT Z[facility]IE Genetic Disease Assessed Evaluation of 11 genes associated with Hereditary Breast and Ovarian Cancer, Grigsby Syndrome and Familial Hypercholesterolemia. 04/19/2023 12:00 AM CDT [facility] Genetic Analysis Overall Interpretation Negative results through Tapestry do not replace diagnostic testing for patients with a personal or family history of cancer/hypercholestero lemia due to limitations with methodology. Consider a referral to a genetic counselor for diagnostic testing if warranted. 04/19/2023 12:00 AM [facility] Genetic Analysis Report See Tapestry PDF Report No actionable gene changes were detected in the genes that cause Familial Hypercholesterolemia. The genes tested for this condition were APOB, LDLR, LDLRAP1, and PCSK9.No actionable gene changes were detected in the genes that cause Hereditary Breast and Ovarian Cancer. The genes tested for this condition were BRCA1 and BRCA2.No actionable gene changes were detected in the genes that cause Grigsby Syndrome. The genes tested for this condition were MLH1, MSH2, MSH6, PMS2 and EPCAM. DNA extracted from this individual's sample was captured and enriched using a custom set of reagents ([employer]+ chemistry). Targeted regions were sequenced using an Illumina DNA sequencing system. Your sequence was matched to a modified version of the industry standard reference genome (GRCh38). Variant calling was completed using a customized version of [employer]'s Itandi software, requiring 20x coverage for validated variant calls. Copy Number Variants (CNVs) were called using a proprietary bioinformatics pipeline that compared the coverage profile of your sample with the coverage profiles of other reference set samples. [facility] 800APP then analyzed the generated variant data for the exons and 10 bp of flanking intronic sequence (and select tagged intronic variants) of the 11 genes included in [employer] [place] from the [employer] Database. Your sample was reviewed for single nucleotide variants (SNVs), indels up to 20 bp in length, and CNVs that are known or predicted to be actionable. NOTE: This assay has limited sensitivity to CNVs smaller than a few exons. APOB, PCSK9, and LDLR interpretation and reporting is specific to the Familial Hypercholesterolemia phenotype. Variants associated with other phenotypes such as Hypobetalipoproteinemi a are not included. Some known complex variants like the inversion of exons 1-7 in the MSH2 gene (Melba inversion), exons 11-15 of the PMS2 gene, or variants within or immediately adjacent to long homopolymer runs are not analyzed or reported. There are regions that are not covered, such as deep intronic, promoter, and enhancer regions. This assay cannot detect all variants known to increase disease risk. Other clinical diagnostic testing for these conditions could identify variants not detected by this test. If you have had previous testing, these results should be taken into consideration during risk assessments and medical management. 04/19/2023 12:00 AM [employer] Human Reference Sequence Assembly GRCh38 04/19/2023 12:00 AM CDT ZOIE Saliva (Mouth) 03/27/2023 Elmer Parikh M.D. LAB GENETI C TESTING [place] [address] [facility], [address] [place] [address], [facility] [place] [address] [facility], [address]. [place] [address] documented in this encounter Visit Diagnoses Diagnosis Genetic Susceptibility To Disease documented in this encounter Additional Health Concerns Infection Onset Date Last Indicated Resolved Time Protective Environment 03/08/2023 03/08/2023 Assessment Noted Time PHQ-9 Depression Total Score: 1 11/23/20 19 7:04 PM TRACK ANNOUNCER documented as of this encounter Care Teams Web Services Manager Relationship Specialty Start Date End Date Elsewhere, Pcp PCP - General Instrument Fitter 11/24/[address] [address] Laboratory Medicine 09/18/20 documented as of this encounter
--- OUTSIDE RECORDS SUMMARY | 2024-03-12 05:56 | XMS_ITS | Encounter Summary ---
Author Name Unknown Organization [facility] Address [address] [place] [address] Care Team Providers Care Sign Maintenance Name Role Phone Elsewhere, Pcp Primary Care Provider Unavailabl e Encounter Details Date Type Department Care Team (Late st Contact Info) Description 01/24/2024 Orders Only Joon Peña [facility] in [place], [place] [address] [place] [address] Eli Infante, R.N. Aftercare Transplant Renal (HCC) (Primary Dx); [...] often do you attend chur ch or methodist services? 1 to 4 times per year 02/13/2023 Do you belong to any clubs o r organizations such as judaism groups, unions, fraternal or athletic groups, or [...] Answer Date Recorded PHQ-2 Score 0 09/10/2023 [facility]ational Stress Questionnaire [...] place to sleep or slept in a group home (including now)? No 02/13/2023 Depression Answer [...] Sex Assigned at Female 11/13/2018 9:36 AM CONCRETE MIXING TRUCK DRIVER Gender Identity Female 11/13/2018 9:36 AM CONCRETE MIXING TRUCK DRIVER Sexual Orientation Straight 11/13/2018 9: 36 AM CONCRETE MIXING TRUCK DRIVER documented as of this encounter Plan of Treatment Upcoming Encounters Date Type Department Care Team (Latest Contact Info) Description 03/17/2024 7:20 AM CDT Appointment Department of Laboratory Medicine in [address] [phone] Angelica Hutchins M.D. [address] [place] [phone] 03/24/2024 7:10 AM CDT Appointment Department of Laboratory Medicine in [address] [phone] Juan Grier, STUART, C.N.P., M.S.N. [address] [place] [phone] 03/24/2024 7:20 AM CDT Appointment Department of Laboratory Medicine in [address] [phone] Angelica Hutchins M.D. [address] [place] [phone] 04/07/2024 8:20 AM CDT Appointment Department of Laboratory Medicine in [address] [phone] Angelica Hutchins M.D. [address] [place] [phone] 04/14/2024 8:00 AM CDT Appointment Department of Laboratory Medicine in [address] [phone] Angelica Hutchins M.D. [address] [place] [phone] 04/15/2024 2:00 PM CDT Clinical Communication Virtual Review in [address] [address] 04/17/2024 11:00 AM CDT Office Visit Department of Neurology in [place], [place] [address] [place] [phone] Wang Bass M.D. [address] [place] [phone] 04/22/2024 7:20 AM CDT Appointment Department of Laboratory Medicine in [address] [address] Angelica Hutchins M.D. [address] [place] [phone] 04/28/2024 7:20 AM CDT Appointment Department of Laboratory Medicine in [address] [phone] Angelica Hutchins M.D. [address] [place] [phone] 04/28/2024 7:40 AM CDT Appointment Department of Laboratory Medicine in [address] [phone] Angelica Hutchins M.D. [address] [place] [phone] 05/05/2024 7:50 AM CDT Appointment Department of Laboratory Medicine in [address] [phone] Angelica Hutchins M.D. [address] [place] [phone] 05/12/2024 7:20 AM CDT Appointment Department of Laboratory Medicine in [address] [address] Angelica Hutchins M.D. [address] [place] [phone] 05/19/2024 7:20 AM CDT Appointment Department of Laboratory Medicine in [address] [phone] Angelica Hutchins M.D. [address] [place] [phone] 05/26/2024 7:20 AM CDT Appointment Department of Laboratory Medicine in [address] [phone] Angelica Hutchins M.D. [address] [place] [phone] 05/26/2024 7:30 AM CDT Appointment Department of Laboratory Medicine in [address] [phone] Angelica Hutchins M.D. [address] [place] [phone] 06/02/2024 7:20 AM CDT Appointment Department of Laboratory Medicine in [address] [address] Angelica Hutchins M.D. [address] [place] [phone] 06/30/2024 7:20 AM CDT Appointment Department of Laboratory Medicine in [address] [phone] Angelica Hutchins M.D. [address] [place] [phone] 06/30/2024 7:30 AM CDT Appointment Department of Laboratory Medicine in [address] [phone] Angelica Hutchins M.D. [address] [place] [phone] 07/29/2024 7:20 AM CDT Appointment Department of Laboratory Medicine in [address] [phone] Angelica Hutchins M.D. [address] [place] [phone] 07/29/2024 7:30 AM CDT Appointment Department of Laboratory Medicine in [address] [phone] Angelica Hutchins M.D. [address] [place] [phone] documented as of this encounter Results * (ABNORMAL) Urinalysis, with Microscopic: Urine, Midstream (01/28/2024 7:41 AM CONCRETE MIXING TRUCK DRIVER) Source Urine, Urine, Midstream 01/28/2024 7:41 AM CONCRETE MIXING TRUCK DRIVER CNFL Clarity Clear Clear 01/28/2024 7:47 AM CONCRETE MIXING TRUCK DRIVER CNFL Color Yellow 01/28/2024 7:47 AM CONCRETE MIXING TRUCK DRIVER CNFL Comment: ----REFERENCE VALUE---- Colorless Yellow Danielle Blood Negative Negative 01/28/2024 7:47 AM CONCRETE MIXING TRUCK DRIVER CNFL Nitrite Negative Negative 01/28/2024 7:47 AM CONCRETE MIXING TRUCK DRIVER CNFL Leukocyte Esterase Negative Negative 01/28/2024 7:47 AM CONCRETE MIXING TRUCK DRIVER CNFL Protein Negative mg/dL 01/28/2024 7:47 AM CONCRETE MIXING TRUCK DRIVER CNFL Comment: ----REFERENCE VALUE---- Negative Trace Glucose Negative Negative mg/dL 01/28/2024 7:47 AM CONCRETE MIXING TRUCK DRIVER CNFL Ketones, QI(U) Negative Negative mg/dL 01/28/2024 7:47 AM CONCRETE MIXING TRUCK DRIVER CNFL Bilirubin Negative Negative 01/28/2024 7:47 AM CONCRETE MIXING TRUCK DRIVER CNFL pH 5.5 5.0 - 8.0 01/28/2024 7:47 AM CONCRETE MIXING TRUCK DRIVER CNFL Specific [place] 1.015 1.001 - 1.035 01/28/2024 7:47 AM CONCRETE MIXING TRUCK DRIVER CNFL Urobilinogen 0.2 0.2 - 1.0 mg/dL 01/28/2024 7:47 AM CONCRETE MIXING TRUCK DRIVER CNFL White Blood Cells Occ-3 /hpf 01/28/2024 7:57 AM CONCRETE MIXING TRUCK DRIVER CNFL Comment: ----REFERENCE VALUE---- Males: 0-3 Females: 0-10 Unknown: 0-10 Red Blood Cells None Seen 0 - 2 /hpf 7:57 AM CONCRETE MIXING TRUCK DRIVER CNFL Squamous Cells 4-10 /hpf 01/28/2024 7:57 AM CONCRETE MIXING TRUCK DRIVER CNFL Bacteria Present(A) None Seen 01/28/2024 7:57 AM CONCRETE MIXING TRUCK DRIVER CNFL Urine (Urine, Midstream) 01/28/2024 7:41 AM CONCRETE MIXING TRUCK DRIVER 01/28/2024 7:41 AM CONCRETE MIXING TRUCK DRIVER Cristofer Castillo M.D. LAB URINE ORDERABLES Performing Organization Address City/[facility]/ZIP Co de Phone Number [facility] [address] [place] [address], [facility] [place] [facility] [place] [address] * Bacterial Culture, Aerobic + Susceptibility, Urine (01/28/2024 7:41 AM CONCRETE MIXING TRUCK DRIVER) Urine Culture No growth after 1 day of incubation. 01/29/2024 10:37 AM CONCRETE MIXING TRUCK DRIVER ECLR Urine (Urine, Midstream) 01/28/2024 7:41 AM CONCRETE MIXING TRUCK DRIVER 01/28/2024 2:51 PM CONCRETE MIXING TRUCK DRIVER Comment:Specimen Source Site : Urine Cristofer Castillo M.D. LAB MICROBIOLOGY - G ENERAL ORDERABLES [facility] [address] [place] [address], [place] ECLR [facility] in [place] [address] [place] [address] * (ABNORMAL) CBC with Differential, Blood (01/28/2024 7:34 AM CONCRETE MIXING TRUCK DRIVER) Hemoglobin 10.8(L) 11.6 - 15.0 g/dL 01/28/2024 7:41 AM CONCRETE MIXING TRUCK DRIVER CNFL Hematocrit 32.7(L) 35.5 - 44.9 % 01/28/2024 7:41 AM CONCRETE MIXING TRUCK DRIVER CNFL Erythrocytes 3.51(L) 3.92 - 5.13 x10(12)/L 01/28/2024 7:41 AM CONCRETE MIXING TRUCK DRIVER CNFL MCV 93.2 78.2 - 97.9 fL 01/28/2024 7:41 AM CONCRETE MIXING TRUCK DRIVER CNFL RBC Distrib Width 13.6 12.2 - 16.1 % 01/28/2024 7:41 AM CONCRETE MIXING TRUCK DRIVER CNFL Platelet Count 299 157 - 371 x10(9)/L 01/28/2024 7:41 AM CONCRETE MIXING TRUCK DRIVER CNFL Leukocytes 8.9 3.4 - 9.6 x10(9)/L 01/28/2024 7:41 AM CONCRETE MIXING TRUCK DRIVER CNFL Neutrophils 7.45(H) 1.56 - 6.45 x10(9)/L 01/28/2024 7:41 AM CONCRETE MIXING TRUCK DRIVER CNFL Lymphocytes 0.98 0.95 - 3.07 x10(9)/L 01/28/2024 7:41 AM CONCRETE MIXING TRUCK DRIVER CNFL Monocytes 0.36 0.26 - 0.81 x10(9)/L 01/28/2024 7:41 AM CONCRETE MIXING TRUCK DRIVER CNFL Eosinophils 0.08 0.03 - 0.48 x10(9)/L 01/28/2024 7:41 AM CONCRETE MIXING TRUCK DRIVER CNFL Basophils 0.05 0.01 - 0.08 x10(9)/L 01/28/2024 7:41 AM CONCRETE MIXING TRUCK DRIVER CNFL Blood (Blood, Venous) 01/28/2024 7:34 AM CONCRETE MIXING TRUCK DRIVER 01/28/2024 7:36 AM CONCRETE MIXING TRUCK DRIVER Cristofer Castillo M.D. LAB BLOOD ADD-ON [facility] [address] [place] [id number], [facility] CNFL [facility] in [address] [address] * Basic Metabolic Panel (01/28/2024 7:34 AM CONCRETE MIXING TRUCK DRIVER) Potassium, P 3.9 3.6 - 5.2 mmol/L 01/28/2024 7:54 AM CONCRETE MIXING TRUCK DRIVER CNFL Sodium, P 137 135 - 145 mmol/L 01/28/2024 7:54 AM CONCRETE MIXING TRUCK DRIVER CNFL Chloride, P 103 98 - 107 mmol/L 01/28/2024 7:54 AM CONCRETE MIXING TRUCK DRIVER CNFL Bicarbonate, P 23 22 - 29 mmol/L 01/28/2024 7:54 AM CONCRETE MIXING TRUCK DRIVER CNFL Anion Gap, P 11 7 - 15 01/28/2024 7:54 AM CONCRETE MIXING TRUCK DRIVER CNFL BUN (Blood Urea Nitrogen), P 13 6 - 21 mg/dL 01/28/2024 7:54 AM CONCRETE MIXING TRUCK DRIVER CNFL Creatinine 0.87 0.59 - 1.04 mg/dL 01/28/2024 7:54 AM CONCRETE MIXING TRUCK DRIVER CNFL Estimated GFR (eGFR) 78 >=60 mL/min/BSA 01/28/2024 7:54 AM CONCRETE MIXING TRUCK DRIVER CNFL Comment: Estimated GFR calculated using the 2020 CKD_EPI creatinine equation. Calcium, Total, P 8.9 8.6 - 10.0 mg/dL 01/28/2024 7:54 AM CONCRETE MIXING TRUCK DRIVER CNFL Glucose, P 88 70 - 140 mg/dL 01/28/2024 7:54 AM CONCRETE MIXING TRUCK DRIVER CNFL Blood (Blood, Venous) 01/28/2024 7:34 AM CONCRETE MIXING TRUCK DRIVER 01/28/2024 7:36 AM CONCRETE MIXING TRUCK DRIVER Cristofer Castillo M.D. LAB BLOOD ADD-ON [facility] [address] [place] [address], [place] CNFL [facility] in [address] [address] * Tacrolimus, Trough (01/28/2024 7:33 AM CONCRETE MIXING TRUCK DRIVER) Tacrolimus, Trough 5.0 5.0-15.0 (Trough) ng/mL 01/29/2024 10:03 AM CONCRETE MIXING TRUCK DRIVER [facility] Comment: ----ADDITIONAL INFORMATION---- Target steady-state trough concentrations vary depending on the type of transplant, concomitant immunosuppression, clinical/institutional protocols, and time post-transplant. Results should be interpreted in conjunction with this clinical information and any physical signs/symptoms of rejection/toxicity. Testing performed by Liquid Chromatography-Tandem Mass Spectrometry (LC-MS/MS). This test was developed and its performance characteristics determined by [facility] in a manner consistent with CLIA requirements. This test has not been cleared or approved by the U.S. Food and Drug Administration. Blood (Blood, Venous) 01/28/2024 7:33 AM CONCRETE MIXING TRUCK DRIVER 01/29/2024 7:21 AM CONCRETE MIXING TRUCK DRIVER Cristofer Castillo M.D. LAB BLOOD NON ADD-ON [facility] [place] [address] [place] [address] [facility] [address] [place] [address] 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
--- OUTSIDE RECORDS SUMMARY | 2024-03-12 05:56 | XMS_ITS | Encounter Summary ---
Author Name Unknown Organization [facility] Address [address] [place] [address] Care Team Providers Care Welt Slasher Name Role Phone Elsewhere, Pcp Primary Care Provider Unavailabl e Encounter Details Date Type Department Care Team (Late st Contact Info) Description 01/17/2024 Documentation [facility] [place], [place] [address] [place] [phone] Cristofer Castillo M.D. [address] [place] [phone] Social History Tobacco Use Types Packs/Day Years [...] any clubs o r organizations such as yazdanism groups, unions, fraternal or athletic groups, or [...] Answer Date Recorded PHQ-2 Score 0 09/10/2023 [facility] - [...] place to sleep or slept in a [place] health care facility (including now)? No 02/13/2023 Depression Answer Date [...] Sex Assigned at Female 11/13/2018 9:36 AM BOILER WASHER Gender Identity Female 11/13/2018 9:36 AM BOILER WASHER Sexual Orientation Straight 11/13/2018 9: 36 AM BOILER WASHER documented as of this encounter Progress Notes * Cristofer Castillo M.D. - 01/17/2024 9:05 PM CST Follow up/MMF dose adjustment. I spoke with Ms. Holley Santos. She is back to baseline. No more fevers. Continue with scratch throat. She will complete her labs tomorrow and pentamidine inhalation. We discussed raising the MMF dose to 500 mg po bid. She verbalized her understanding of the plan. Addendum: CMV viral load was negative ER WASHER documented in this encounter H&P Notes * Cristofer Castillo M.D. - 01/17/2024 9:05 PM CST Follow up/MMF dose adjustment. I spoke with Ms. Holley Santos. She is back to baseline. No more fevers. Continue with scratch throat. She will complete her labs tomorrow and pentamidine inhalation. We discussed raising the MMF dose to 500 mg po bid. She verbalized her understanding of the plan. ER WASHER documented in this encounter Plan of Treatment Upcoming Encounters Date Type Department Care Team (Latest Contact Info) Description 03/17/2024 7:20 AM CDT Appointment Department of Laboratory Medicine in [address] [phone] Angelica Hutchins M.D. [address] [place] [phone] 03/24/2024 7:10 AM CDT Appointment Department of Laboratory Medicine in [address] [phone] Juan Grier, STUART, C.N.P., M.S.N. [address] [place] [phone] 03/24/2024 7:20 AM CDT Appointment Department of Laboratory Medicine in [address] [phone] Angelica Hutchins M.D. [address] [place] [phone] 04/07/2024 8:20 AM CDT Appointment Department of Laboratory Medicine in [address] [phone] Angelica Hutchins M.D. [address] [place] [phone] 04/14/2024 8:00 AM CDT Appointment Department of Laboratory Medicine in [address] [address] Angelica Hutchins M.D. [address] [place] [phone] 04/15/2024 2:00 PM CDT Clinical Communication Virtual Review in [address] [address] 04/17/2024 11:00 AM CDT Office Visit Department of Neurology in [address] [phone] Wang Bass M.D. [address] [place] [phone] 04/22/2024 7:20 AM CDT Appointment Department of Laboratory Medicine in [address] [phone] Angelica Hutchins M.D. [address] [place] [phone] 04/28/2024 7:20 AM CDT Appointment Department of Laboratory Medicine in [address] [address] Angelica Hutchins M.D. [address] [place] [phone] 04/28/2024 7:40 AM CDT Appointment Department of Laboratory Medicine in [address] [address] Angelica Hutchins M.D. [address] [place] [phone] 05/05/2024 7:50 AM CDT Appointment Department of Laboratory Medicine in [address] [address] Angelica Hutchins M.D. [address] [place] [phone] 05/12/2024 7:20 AM CDT Appointment Department of Laboratory Medicine in [address] [address] Angelica Hutchins M.D. [address] [place] [phone] 05/19/2024 7:20 AM CDT Appointment Department of Laboratory Medicine in [address] [address] Angelica Hutchins M.D. [address] [place] [phone] 05/26/2024 7:20 AM CDT Appointment Department of Laboratory Medicine in [address] [address] Angelica Hutchins M.D. [address] [place] [phone] 05/26/2024 7:30 AM CDT Appointment Department of Laboratory Medicine in [address] [address] Angelica Hutchins M.D. [address] [place] [phone] 06/02/2024 7:20 AM CDT Appointment Department of Laboratory Medicine in [address] [address] Angelica Hutchins M.D. [address] [place] [phone] 06/30/2024 7:20 AM CDT Appointment Department of Laboratory Medicine in [address] [address] Angelica Hutchins M.D. [address] [place] [phone] 06/30/2024 7:30 AM CDT Appointment Department of Laboratory Medicine in [address] [phone] Angelica Hutchins M.D. [address] [place] [phone] 07/29/2024 7:20 AM CDT Appointment Department of Laboratory Medicine in [address] [address] Angelica Hutchins M.D. [address] [place] [phone] 07/29/2024 7:30 AM CDT Appointment Department of Laboratory Medicine in [address] [phone] Angelica Hutchins M.D. [address] [place] [phone] documented as of this encounter Visit Diagnoses Not on filedocumented in this encounter Additional Health Concerns Infection Onset Date Last Indicated Resolved Time Protective Environment 03/08/2023 03/08/2023 Assessment Noted Time PHQ-9 Depression Total Score: 1 11/23/20 19 7:04 PM BOILER WASHER documented as of this encounter Care Teams Welt Slasher Relationship Specialty Start Date End Date Elsewhere, Pcp PCP - General Activity Assistant 11/24/[address] [address] Laboratory Medicine 09/18/20 documented as of this encounter
--- OUTSIDE RECORDS SUMMARY | 2024-03-12 05:57 | XMS_ITS | Encounter Summary ---
Author Name Unknown Organization [facility] Address [address] [place] [address] Care Team Providers Care After School Driver Name Role Phone Elsewhere, Pcp Primary Care Provider Unavailabl e Reason for Visit * Reason Comments Med Refill Encounter Details Date Type Department Care Team (Late st Contact Info) Description 01/17/2024 Refill Joon millan [facility] in [place], [place] [address] [place] [address] Charu Alicea, R.N. Med Refill Social History [...] How often do you attend chur or faith services? 1 to 4 times per year 02/13/2023 Do you belong to any clubs o r organizations such as restoration groups, unions, fraternal or athletic groups, or [...] Answer Date Recorded PHQ-2 Score 0 09/10/2023 [facility] Occupat ional Health - Occupational Stress [...] Sex Assigned at Female 11/13/2018 9:36 AM LINE CLEANER Gender Identity Female 11/13/2018 9:36 AM LINE CLEANER Sexual Orientation Straight 11/13/2018 9: 36 AM LINE CLEANER documented as of this encounter Plan of Treatment Upcoming Encounters Date Type Department Care Team (Latest Contact Info) Description 03/17/2024 7:20 AM CDT Appointment Department of Laboratory Medicine in [address] [phone] Angelica Hutchins M.D. [address] [place] [phone] 03/24/2024 7:10 AM CDT Appointment Department of Laboratory Medicine in [address] [phone] Juan Grier APRN, C.N.P., M.S.N. [address] [place] [phone] 03/24/2024 7:20 AM CDT Appointment Department of Laboratory Medicine in [address] [address] Angelica Hutchins M.D. [address] [place] [phone] 04/07/2024 8:20 AM CDT Appointment Department of Laboratory Medicine in [address] [address] Angelica Hutchins M.D. [address] [place] [phone] 04/14/2024 8:00 AM CDT Appointment Department of Laboratory Medicine in [address] [address] Angelica Hutchins M.D. [address] [place] [phone] 04/15/2024 2:00 PM CDT Clinical Communication Virtual Review in [address] [address] 04/17/2024 11:00 AM CDT Office Visit Department of Neurology in [place], [place] [address] [place] [phone] Wang Bass M.D. [address] [place] [phone] 04/22/2024 7:20 AM CDT Appointment Department of Laboratory Medicine in [address] [phone] Angelica Hutchins M.D. [address] [place] [phone] 04/28/2024 7:20 AM CDT Appointment Department of Laboratory Medicine in [address] [phone] Angelica Hutchins M.D. [address] [place] [phone] 04/28/2024 7:40 AM CDT Appointment Department of Laboratory Medicine in [address] [phone] Angelica Hutchins M.D. [address] [place] [phone] 05/05/2024 7:50 AM CDT Appointment Department of Laboratory Medicine in [address] [phone] Angelica Hutchins M.D. [address] [place] [phone] 05/12/2024 7:20 AM CDT Appointment Department of Laboratory Medicine in [address] [phone] Angelica Hutchins M.D. [address] [place] [phone] 05/19/2024 7:20 AM CDT Appointment Department of Laboratory Medicine in [address] [address] Angelica Hutchins M.D. [address] [place] [phone] 05/26/2024 7:20 AM CDT Appointment Department of Laboratory Medicine in [address] [phone] Angelica Hutchins M.D. [address] [place] [phone] 05/26/2024 7:30 AM CDT Appointment Department of Laboratory Medicine in [address] [address] Angelica Hutchins M.D. [address] [place] [phone] 06/02/2024 7:20 AM CDT Appointment Department of Laboratory Medicine in [address] [address] Angelica Hutchins M.D. [address] [place] [phone] 06/30/2024 7:20 AM CDT Appointment Department of Laboratory Medicine in [address] [address] Angelica Hutchins M.D. [address] [place] [phone] 06/30/2024 7:30 AM CDT Appointment Department of Laboratory Medicine in [address] [address] Angelica Hutchins M.D. [address] [place] [phone] 07/29/2024 7:20 AM CDT Appointment Department of Laboratory Medicine in [address] [phone] Angelica Hutchins M.D. [address] [place] [phone] 07/29/2024 7:30 AM CDT Appointment Department of Laboratory Medicine in [address] [phone] Angelica Hutchins M.D. [address] [place] [phone] documented as of this encounter Visit Diagnoses Diagnosis Aftercare Transplant Renal (HCC)- Primary High 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 Immunodeficiency (HCC) documented in this encounter Additional Health Concerns Infection Onset Date Last Indicated Resolved Time Protective Environment 03/08/2023 03/08/2023 Assessment Noted Time PHQ-9 Depression Total Score: 1 11/23/20 19 7:04 PM LINE CLEANER documented as of this encounter Care Teams After School Driver Relationship Specialty Start Date End Date Elsewhere, Pcp PCP - General Angular Js Developer 11/24/[address] [address] Laboratory Medicine 09/18/20 documented as of this encounter
--- OUTSIDE RECORDS SUMMARY | 2024-03-12 05:57 | XMS_ITS | Encounter Summary ---
Author Name Unknown Organization [facility] Address [address] [place] [address] Care Team Providers Care Laboratory Animal Facility Supervisor Name Role Phone Elsewhere, Pcp Primary Care Provider Unavailabl e Encounter Details Date Type Department Care Team (Late st Contact Info) Description 01/15/2024 Documentation J[facility] in [place], [place] [address] [place] [phone] Cristofer Castillo M.D. [address] [place] [phone] Social History Tobacco Use Types Packs/Day Years [...] any clubs o r organizations such as denominational groups, unions, fraternal or athletic groups, or [...] Answer Date Recorded PHQ-2 Score 0 09/10/2023 [facility] [...] place to sleep or slept in a [facility] (including now)? No 02/13/2023 Depression Answer Date [...] Sex Assigned at Female 11/13/2018 9:36 AM JOB PRESS FEEDER Gender Identity Female 11/13/2018 9:36 AM JOB PRESS FEEDER Sexual Orientation Straight 11/13/2018 9: 36 AM JOB PRESS FEEDER documented as of this encounter Progress Notes * Cristofer Castillo M.D. - 01/15/2024 12:14 PM CST Late entry note from 01/14 Called Holley LandSravanthi Santos to follow up on the results. The viral panel was negative. The UA resultswere reviewed and patient indicated that she has no lower urinary tract symptoms reminiscent of herprevious UTI. We reviewed her symptoms and since she was last seen in the clinic, she developed cough that is dryin nature and not productive of any phlegm. Her temperature this evening was 100??. We reviewed hervitals at home and this evening her blood pressure was in the 120s systolic and her heart rate in the 80s. She has a pulse ox machine and she will monitor her pulse ox. A comprehensive review of system was nonrevealing. Reviewing her risk for CMV, we discussed that if she continues to have fevers or develops diarrhea will consider checking CMV PCR however she is on Valcyte prophylaxis full dose 900 mg daily. We also discussed that if the fever persists and if she has not able to hydrate herself, to proceed to the ED. we will consider a chest x-ray and CMV viral load to be complete. Otherwise the blood cultures and urine cultures are pending from the clinic appointment. We discussed decreasing her carvedilol giving her blood pressure numbers. In the meantime, patient is scheduled to return to [place] for appointments on Sunday. We will order CMV viral load for then. Addendum: Patient presented to the emergency room this morning due to low blood pressure. [facility] PRESS FEEDER documented in this encounter Plan of Treatment Upcoming Encounters Date Type Department Care Team (Latest Contact Info) Description 03/17/2024 7:20 AM CDT Appointment Department of Laboratory Medicine in [address] [phone] Angelica Hutchins [place]. [facility] [place] [phone] 03/24/2024 7:10 AM CDT Appointment Department of Laboratory Medicine in [address] [phone] Juan Grier, STUART, C.N.P., M.S.N. [address] [place] [phone] 03/24/2024 7:20 AM CDT Appointment Department of Laboratory Medicine in [address] [phone] Angelica Hutchins M.D. [address] [place] [phone] 04/07/2024 8:20 AM CDT Appointment Department of Laboratory Medicine in [address] [phone] Angelica Hutchins M.D. [address] [place] [phone] 04/14/2024 8:00 AM CDT Appointment Department of Laboratory Medicine in [address] [phone] Angelica Hutchins M.D. [address] [place] [phone] 04/15/2024 2:00 PM CDT Clinical Communication Virtual Review in [address] [phone] 04/17/2024 11:00 AM CDT Office Visit Department of Neurology in [address] [phone] Wang Bass M.D. [address] [place] [phone] 04/22/2024 7:20 AM CDT Appointment Department of Laboratory Medicine in [address] [phone] Angelica Hutchins M.D. [address] [place] [phone] 04/28/2024 7:20 AM CDT Appointment Department of Laboratory Medicine in [address] [phone] Angelica Hutchins M.D. [address] [place] [phone] 04/28/2024 7:40 AM CDT Appointment Department of Laboratory Medicine in [address] [phone] Angelica Hutchins M.D. [address] [place] [phone] 05/05/2024 7:50 AM CDT Appointment Department of Laboratory Medicine in [address] [phone] Angelica Hutchins M.D. [address] [place] [phone] 05/12/2024 7:20 AM CDT Appointment Department of Laboratory Medicine in [address] [phone] Angelica Hutchins M.D. [address] [place] [phone] 05/19/2024 7:20 AM CDT Appointment Department of Laboratory Medicine in [address] [phone] Angelica Hutchins M.D. [address] [place] [phone] 05/26/2024 7:20 AM CDT Appointment Department of Laboratory Medicine in [address] [phone] Angelica Hutchins M.D. [address] [place] [phone] 05/26/2024 7:30 AM CDT Appointment Department of Laboratory Medicine in [address] [phone] Angelica Hutchins M.D. [address] [place] [phone] 06/02/2024 7:20 AM CDT Appointment Department of Laboratory Medicine in [address] [phone] Angelica Hutchins M.D. [address] [place] [phone] 06/30/2024 7:20 AM CDT Appointment Department of Laboratory Medicine in [address] [phone] Angelica Hutchins M.D. [address] [place] [phone] 06/30/2024 7:30 AM CDT Appointment Department of Laboratory Medicine in [address] [phone] Angelica Hutchins M.D. [address] [place] [phone] 07/29/2024 7:20 AM CDT Appointment Department of Laboratory Medicine in [address] [phone] Angelica Hutchins M.D. [address] [place] [phone] 07/29/2024 7:30 AM CDT Appointment Department of Laboratory Medicine in [address] [phone] Angelica Hutchins M.D. [address] [place] [phone] documented as of this encounter Results * CMV DNA Detect / Quant, Plasma (01/28/2024 7:33 AM JOB PRESS FEEDER) CMV DNA Detect/Quant, P Undetected Undetected IU/mL 01/29/2024 2:41 PM JOB PRESS FEEDER [facility] Comment: Result in log IU/mL is Undetected. ----ADDITIONAL INFORMATION---- The quantification range of this assay is 35 to 10,000,000 IU/mL (1.54 log to 7.00 log IU/mL). Testing was performed using the chari CMV test ([employer] Blood (Blood, Venous) 01/28/2024 7:33 AM JOB PRESS FEEDER 01/29/2024 9:21 AM JOB PRESS FEEDER Cristofer Castillo M.D. LAB MICROBIOLOGY - B LOOD ORDERABLES [facility] [place] [address] [place] [address] [facility] [address] [place] [address] [place] [address] documented in this encounter Visit Diagnoses Diagnosis Aftercare Transplant Renal (HCC)- Primary documented in this encounter Additional Health Concerns Infection Onset Date Last Indicated Resolved Time Protective Environment 03/08/2023 03/08/2023 Assessment Noted Time PHQ-9 Depression Total Score: 1 11/23/20 19 7:04 PM JOB PRESS FEEDER documented as of this encounter Care Teams Laboratory Animal Facility Supervisor Relationship Specialty Start Date End Date Elsewhere, Pcp PCP - General Software Development Engineer 11/24/19 [facility] [address] [place] [phone] Laboratory Medicine 09/18/20 documented as of this encounter
--- OUTSIDE RECORDS SUMMARY | 2024-03-12 05:57 | XMS_ITS | Encounter Summary ---
Author Name Unknown Organization [facility] Address [address] [place] [address] Care Team Providers Care Machine Ii Coremaker Name Role Phone Elsewhere, Pcp Primary Care Provider Unavailabl e Encounter Details Date Type Department Care Team (Late st Contact Info) Description 01/14/2024 7:40 AM WELDER APPRENTICE ARC Lab Department of Laboratory Medicine and Pathology, [facility], in [place], [place] [address] [place] [phone] Kimmy Mike M.D. [address] [place] [phone] Transplant Renal (HCC); Immunodeficiency Due To Drugs [...] often do you attend chur ch or confucianist services? 1 to 4 times per year [...] Answer Date Recorded PHQ-2 Score 0 09/10/2023 [facility] Occupat ional [facility] - Occupational Stress [...] Sex Assigned at Female 11/13/2018 9:36 AM WELDER APPRENTICE ARC Gender Identity Female 11/13/2018 9:36 AM WELDER APPRENTICE ARC Sexual Orientation Straight 11/13/2018 9: 36 AM WELDER APPRENTICE ARC documented as of this encounter Plan of Treatment Upcoming Encounters Date Type Department Care Team (Latest Contact Info) Description 03/17/2024 7:20 AM CDT Appointment Department of Laboratory Medicine in [address] [phone] Angelica Hutchins M.D. [address] [place] [phone] 03/24/2024 7:10 AM CDT Appointment Department of Laboratory Medicine in [address] [phone] Juan Grier, STUART, C.N.P., M.S.N. [address] [place] [phone] 03/24/2024 7:20 AM CDT Appointment Department of Laboratory Medicine in [address] [phone] Angelica Hutchins M.D. [address] [place] [phone] 04/07/2024 8:20 AM CDT Appointment Department of Laboratory Medicine in [address] [phone] Angelica Hutchins M.D. [address] [place] [phone] 04/14/2024 8:00 AM CDT Appointment Department of Laboratory Medicine in [address] [phone] Angelica Hutchins M.D. [address] [place] [phone] 04/15/2024 2:00 PM CDT Clinical Communication Virtual Review in [place], [place] 200 [place] [address] 04/17/2024 11:00 AM CDT Office Visit Department of Neurology in [place], [place] [address] [place] [phone] Wang Bass M.D. [address] [place] [phone] 04/22/2024 7:20 AM CDT Appointment Department of Laboratory Medicine in [address] [phone] Angelica Hutchins M.D. [address] [place] [phone] 04/28/2024 7:20 AM CDT Appointment Department of Laboratory Medicine in [address] [phone] Angelica Hutchins M.D. [address] [place] [phone] 04/28/2024 7:40 AM CDT Appointment Department of Laboratory Medicine in [address] [phone] Angelica Hutchins M.D. [address] [place] [phone] 05/05/2024 7:50 AM CDT Appointment Department of Laboratory Medicine in [address] [phone] Angelica Hutchins M.D. [address] [place] [phone] 05/12/2024 7:20 AM CDT Appointment Department of Laboratory Medicine in [address] [phone] Angelica Hutchins M.D. [address] [place] [phone] 05/19/2024 7:20 AM CDT Appointment Department of Laboratory Medicine in [address] [phone] Angelica Hutchins M.D. [address] [place] [phone] 05/26/2024 7:20 AM CDT Appointment Department of Laboratory Medicine in [address] [phone] Angelica Hutchins M.D. [address] [place] [phone] 05/26/2024 7:30 AM CDT Appointment Department of Laboratory Medicine in [address] [phone] Angelica Hutchins M.D. [address] [place] [phone] 06/02/2024 7:20 AM CDT Appointment Department of Laboratory Medicine in [address] [phone] Angelica Hutchins M.D. [address] [place] [phone] 06/30/2024 7:20 AM CDT Appointment Department of Laboratory Medicine in [address] [phone] Angelica Hutchins M.D. [address] [place] [phone] 06/30/2024 7:30 AM CDT Appointment Department of Laboratory Medicine in [address] [phone] Angelica Hutchins M.D. [address] [place] [phone] 07/29/2024 7:20 AM CDT Appointment Department of Laboratory Medicine in [address] [phone] Angelica Hutchins M.D. [address] [place] [phone] 07/29/2024 7:30 AM CDT Appointment Department of Laboratory Medicine in [address] [phone] Angelica Hutchins M.D. 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 CONN/KID POST TRANS STORAGE, B Routine 01/14/2024 8:15 AM WELDER APPRENTICE ARC 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 MYCOPHENOLIC ACID, S Routine 01/14/2024 8:15 AM WELDER APPRENTICE ARC 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 HLA CLASS II SAB ANTIBODY SCREEN Routine 01/14/2024 8:15 AM WELDER APPRENTICE ARC 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 HLA CLASS I SAB ANTIBODY SCREEN Routine 01/14/2024 8:15 AM WELDER APPRENTICE ARC 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 TACROLIMUS LEVEL, B Routine 01/14/2024 8 :15 AM WELDER APPRENTICE ARC 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 25-HYDROXYVITAMIN D2 AND D3, S Routine 01/14/2024 8:15 AM WELDER APPRENTICE ARC 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 CBC WITH DIFFERENTIAL, B Routine 01/14/2024 8:15 AM WELDER APPRENTICE ARC 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 TROPONIN T, 5TH GEN, P Routine 8:15 AM WELDER APPRENTICE ARC 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 PHOSPHORUS (INORGANIC), S Routine 01/14/2024 8:15 AM WELDER APPRENTICE ARC 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 MAGNESIUM, S Routine 01/14/2024 8:15 AM WELDER APPRENTICE ARC 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 HEMOGLOBIN A1C, B Routine 01/14/2024 8:1 5 AM WELDER APPRENTICE ARC 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 COMPREHENSIVE METABOLIC PANEL, S/P Routine 01/14/2024 8:15 AM WELDER APPRENTICE ARC 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 ACTIVATED PARTIAL THROMBOPLASTIN TIME (APTT), P Routine 01/14/2024 8:14 AM WELDER APPRENTICE ARC 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 PROTHROMBIN TIME (PT), P Routine 01/14/2024 8:14 AM WELDER APPRENTICE ARC 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 documented in this encounter Results * HLA Class I/II Combined cPRA, Serum (01/14/2024 8:15 AM WELDER APPRENTICE ARC) Pathologist [facility] Class I/II Combined cPRA 60.29 Not Applicable 01/16/2024 10:38 AM WELDER APPRENTICE ARC DBB8 Comment: ----ADDITIONAL INFORMATION---- Calculated PRA (cPRA) [...] published by UNOS/OPTN listed here: http://optn.transplant.hrsa.gov CLIA: [id number] ??CLIA Sales Development Consultant: JOON TOMLINSON MD,PhD Combined cPRA Specificities see below 01/16/2024 10:38 AM WELDER APPRENTICE ARC DBB8 Comment: DQ:2 DQA:03 Blood 01/14/2024 8:15 AM WELDER APPRENTICE ARC 01/14/2024 10:02 AM WELDER APPRENTICE ARC Kimmy Branham M.D. LAB HLA ORDERABLES [facility] [address] [place], [place] [address] DBB8 [facility] [address] [place] [address] * Mycophenolic Acid (01/14/2024 8:15 AM WELDER APPRENTICE ARC) [facility] Mycophenolic Acid 2.4 1.0 - 3.5 mcg/mL 01/14/2024 5:22 PM WELDER APPRENTICE ARC SDSC MPA Glucuronide 38 35 - 100 mcg/mL 01/14/2024 5:22 PM WELDER APPRENTICE ARC SDSC Comment: ----ADDITIONAL INFORMATION---- Target steady-state trough concentrations vary depending on the type of transplant, concomitant immunosuppression, clinical/institutional protocols, and time post-transplant. Results should be interpreted in conjunction with this clinical information and any physical signs/symptoms of rejection/toxicity. Testing performed by Liquid Chromatography-Tandem Mass Spectrometry (LC-MS/MS). This test was developed and its performance characteristics determined by [facility] in a manner consistent with CLIA requirements. This test has not been cleared or approved by the U.S. Food and Drug Administration. Blood (Blood, Venous) 01/14/2024 8:15 AM WELDER APPRENTICE ARC 01/14/2024 1:22 PM WELDER APPRENTICE ARC Kimmy Branham M.D. LAB BLOOD NON ADD- ON Performing Organization Address [facility] Co de Phone Number [facility] [address] [place] [address] [facility] [address] [place] [address] [place] [address] * Tacrolimus, Trough (01/14/2024 8:15 AM WELDER APPRENTICE ARC) [facility] Tacrolimus, Trough 5.2 5.0-15.0 (Trough) ng/mL 01/14/2024 1:01 PM WELDER APPRENTICE ARC [facility] Comment: ----ADDITIONAL INFORMATION---- Target steady-state trough concentrations vary depending on the type of transplant, concomitant immunosuppression, clinical/institutional protocols, and time post-transplant. Results should be interpreted in conjunction with this clinical information and any physical signs/symptoms of rejection/toxicity. Testing performed by Liquid Chromatography-Tandem Mass Spectrometry (LC-MS/MS). This test was developed and its performance characteristics determined by [facility] in a manner consistent with CLIA requirements. This test has not been cleared or approved by the U.S. Food and Drug Administration. Blood (Blood, Venous) 01/14/2024 8:15 AM WELDER APPRENTICE ARC 01/14/2024 9:59 AM WELDER APPRENTICE ARC Kimmy Branham M.D. LAB BLOOD NON ADD- ON Performing Organization Address City/[facility]/ZIP Co de Phone Number [facility] [address] [place] [address] [facility] [address] [place] [address] [place] [address] * Hemoglobin A1c (01/14/2024 8:15 AM WELDER APPRENTICE ARC) Hemoglobin A1c, B 5.3 4.0 - 5.6 % 01/14/2024 9:12 AM WELDER APPRENTICE ARC DTL Blood (Blood, Venous) 01/14/2024 8:15 AM WELDER APPRENTICE ARC 01/14/2024 8:29 AM WELDER APPRENTICE ARC Kimmy Branham M.D. LAB BLOOD ADD-ON [facility] [address] [place] [address], [facility] DTL [facility] [address] [place] [address] * Conn/Kid 5cc Storage, Blood (01/14/2024 8:15 AM WELDER APPRENTICE ARC) Pathologist [facility] Storage, Red Collected DEFAULT 01/14/2024 8:15 AM WELDER APPRENTICE ARC HSS Storage, ACD Collected DEFAULT 01/14/2024 8:15 AM WELDER APPRENTICE ARC HSS Blood (Blood, Venous) 01/14/2024 8:15 AM WELDER APPRENTICE ARC 01/14/2024 8:15 AM WELDER APPRENTICE ARC Narrative [facility] - 01/14/2024 8:15 AM WELDER APPRENTICE ARC Specimen Information: Specimen ID: [id number] Specimen Type: Blood Specimen Collection Start Date: 01/14/2024 ??8:15 AM Specimen Received Date: 01/14/2024 ??8:15 AM Specimen ID: [id number] Specimen Collection Start Date: 01/14/2024 ??8:15 AM Specimen Received Date: 01/14/2024 ??8:15 AM Kimmy Branham M.D. LAB BLOOD ADD-ON [facility] [address] [place] [address], [facility] HSS [facility] [address] [place] [address] * (ABNORMAL) BKV DNA Detect/Quant (01/14/2024 8:15 AM WELDER APPRENTICE ARC) Pathologist [facility] BKV DNA Detect/Quant, P 240(A) Undetected IU/mL 01/14/2024 7:30 PM WELDER APPRENTICE ARC SDS Comment: Result in log IU/mL is 2.38. ----ADDITIONAL INFORMATION---- The quantification range of this assay is 22 to 100,000,000 IU/mL (1.34 log to 8.00 log IU/mL). Testing was performed using the chari BKV test ([employer] Blood (Blood, Venous) 01/14/2024 8:15 AM WELDER APPRENTICE ARC 01/14/2024 12:38 PM WELDER APPRENTICE ARC Kimmy Branham M.D. LAB MICROBIOLOGY - BLOOD ORDERABLES [facility] [place] [address] [place] [address] [facility] [address] [place] [address] [place] [address] * 25-Hydroxyvitamin D2 and D3 (01/14/2024 8:15 AM WELDER APPRENTICE ARC) [facility] 25-Hydroxy D2 <4.0 ng/mL 01/15/2024 10:34 PM WELDER APPRENTICE ARC SDS 25-Hydroxy D3 35 ng/mL 01/15/2024 10:34 PM WELDER APPRENTICE ARC SDSC 25-Hydroxy D Total 35 ng/mL 2023 10:34 PM WELDER APPRENTICE ARC [facility] Comment: ----REFERENCE VALUE---- 25-HYDROXY D TOTAL (D2+D3) Optimum levels in the healthy population are 20-50, patients with bone disease may benefit from higher levels within this range. ----ADDITIONAL INFORMATION---- This test was developed and its performance characteristics determined by [facility] in a manner consistent with CLIA requirements. This test has not been cleared or approved by the U.S. Food and Drug Administration. Blood (Blood, Venous) 01/14/2024 8:15 AM WELDER APPRENTICE ARC 01/14/2024 1:50 PM WELDER APPRENTICE ARC Kimmy Branham M.D. LAB BLOOD ADD-ON [facility] [address] [place] [address] [facility] [address] [place] [address] [place] [address] * HLA Class II SAB Antibody Screen (01/14/2024 8:15 AM WELDER APPRENTICE ARC) Class II SAB Overall Result Positive Not Applicable 01/16/2024 6:00 AM WELDER APPRENTICE ARC DBB8 Class II SAB Comment No DSA obsvd. 01/16/2024 6:00 AM WELDER APPRENTICE ARC DBB8 Class II SAB >=5000 MFI NONE 01/16/2024 6:00 AM WELDER APPRENTICE ARC DBB8 Class II SAB [id number] MFI see below 01/16/2024 6:00 AM WELDER APPRENTICE ARC DBB8 Comment: DQ:2 DQA:03 Class II SAB 500-1999 MFI see below 01/16/2024 6:00 AM WELDER APPRENTICE ARC DBB8 Comment: DRw:53 DQ:8 7 DP:1 SAB DRB1 Specificity NONE 01/16/2024 6:00 AM WELDER APPRENTICE ARC DBB8 SAB TQV123 Specificity see below 01/16/2024 6:00 AM WELDER APPRENTICE ARC DBB8 Comment: 53(01:03)[815], 53(01:01)[670] Format: Serologic Eq.(JRB001 Mol. Allele)[Normalized MFI] NOTE: ??Data is displayed in descending order by Mean Fluorescence Intensity (MFI). ??Serologic equivalents can be displayed multiple times for different molecular alleles. SAB DQB1 Specificity see below 01/16/2024 6:00 AM WELDER APPRENTICE ARC DBB8 Comment: 2(A*05:01;B*02:01)[9931], 2(A*03:01;B*02:01)[7071], 9(A*03:01;B*03:03)[0963], 2(A*04:01;B*02:01)[2948], 2(A*02:01;B*02:01)[7585], 2(A*02:01;B*02:02)[2167], 8(A*03:03;B*03:02)[2145], 4(A*03:03;B*04:01)[2083], 8(A*03:01;B*03:02)[181], 9(A*03:02;B*03:03)[174], 7(A*03:01;B*03:01)[1624] Format: Serologic Eq.(DQA1;DQB1 Mol. Allele)[Normalized MFI] NOTE: ??Data is displayed in descending order by Mean Fluorescence Intensity (MFI). ??Serologic equivalents can be displayed multiple times for different molecular alleles. SAB DPB1 Specificity see below 01/16/2024 6:00 AM WELDER APPRENTICE ARC DBB8 Comment: 1(A*02:01;B*01:01)[999] Format: Serologic Eq.(DPA1;DPB1 Mol. Allele)[Normalized MFI] NOTE: ??Data is displayed in descending order by Mean Fluorescence Intensity (MFI). ??Serologic equivalents can be displayed multiple times for different molecular alleles. ----ADDITIONAL INFORMATION---- Method: Luminex Flow Cytometry CLIA: [id number] ??CLIA Sales Development Consultant: JOON TOMLINSON MD,PhD Blood (Blood, Venous) 01/14/2024 8:15 AM WELDER APPRENTICE ARC 01/14/2024 10:02 AM WELDER APPRENTICE ARC Kimmy Branham M.D. LAB HLA ORDERABLES [facility] [address] [place] [address], [facility] DBB8 [facility] [address] [place] [address] * HLA Class I SAB Antibody Screen (01/14/2024 8:15 AM WELDER APPRENTICE ARC) Class I SAB Overall Result Negative Not Applicable 01/16/2024 5:39 AM WELDER APPRENTICE ARC DBB8 Class I SAB Comment No DSA obsvd. 01/16/2024 5:39 AM WELDER APPRENTICE ARC DBB8 Class I SAB >=5000 MFI NONE 01/16/2024 5:39 AM WELDER APPRENTICE ARC DBB8 Class I SAB 1294-4306 MFI NONE 01/16/2024 5:39 AM WELDER APPRENTICE ARC DBB8 Class I SAB 500-1999 MFI NONE 01/16/2024 5:39 AM WELDER APPRENTICE ARC DBB8 SAB A Specificity NONE 01/16/2024 5:39 AM WELDER APPRENTICE ARC DBB8 SAB B Specificity NONE 01/16/2024 5:39 AM WELDER APPRENTICE ARC DBB8 SAB C Specificity NONE 01/16/2024 5:39 AM WELDER APPRENTICE ARC DBB8 Comment: ----ADDITIONAL INFORMATION---- Method: Luminex Flow Cytometry CLIA: [id number] ??CLIA Sales Development Consultant: JOON TOMLINSON MD,PhD Blood (Blood, Venous) 01/14/2024 8:15 AM WELDER APPRENTICE ARC 01/14/2024 10:02 AM WELDER APPRENTICE ARC Kimmy Branham M.D. LAB HLA ORDERABLES Performing Organization Address [facility] Co de Phone Number [facility] [address] DBB8 [facility] [address] [place] [address] * (ABNORMAL) Troponin T, 5th Generation (01/14/2024 8:15 AM WELDER APPRENTICE ARC) Troponin T, 5th gen 12(H) <=10 ng/L 01/14/2024 9:26 AM WELDER APPRENTICE ARC DTL Blood (Blood, Venous) 01/14/2024 8:15 AM WELDER APPRENTICE ARC 01/14/2024 9:02 AM WELDER APPRENTICE ARC Kimmy Branham M.D. LAB BLOOD ADD-ON Performing Organization Address City/[facility] Co de Phone Number [facility] [address] [place], [place] [phone] [place] [address] DTL [facility] [address] [place] [address] * (ABNORMAL) Lipid Panel (01/14/2024 8:15 AM WELDER APPRENTICE ARC) Triglycerides 297(H) mg/dL 01/14/2024 9:30 AM WELDER APPRENTICE ARC DTL Comment: ----REFERENCE VALUE---- Normal: <150 mg/dL Borderline High: 150-199 mg/dL High: 200-499 mg/dL Very High: > or =500 mg/dL Cholesterol, Total 144 mg/dL 2023 9:30 AM WELDER APPRENTICE ARC DTL Comment: ----REFERENCE VALUE---- Desirable: < 200 mg/dL Borderline High: 200 - 239 mg/dL High: > or = 240 mg/dL Cholesterol, LDL, Calculated 55 mg/dL 01/14/2024 10:13 AM WELDER APPRENTICE ARC DTL Comment: ----REFERENCE VALUE---- Desirable: <100 mg/dL Above Desirable: 100-129 mg/dL Borderline High: 130-159 mg/dL High: 160-189 mg/dL Very High: >=190 mg/dL ----ADDITIONAL INFORMATION---- LDL cholesterol calculated using the Matias/NIH equation. Cholesterol, HDL, S 43(L) >=50 mg/dL 01/14/2024 10:13 AM WELDER APPRENTICE ARC DTL Cholesterol, Non-HDL, Calculated 101 mg/dL 01/14/2024 10:13 AM WELDER APPRENTICE ARC DTL Comment: ----REFERENCE VALUE---- Desirable: <130 mg/dL Above Desirable: 130-159 mg/dL Borderline High: 160-189 mg/dL High: 190-219 mg/dL Very High: > or =220 mg/dL Fasting (8 HR or more) Yes 01/14/2024 9:02 AM WELDER APPRENTICE ARC DTL Blood (Blood, Venous) 01/14/2024 8:15 AM WELDER APPRENTICE ARC 01/14/2024 9:02 AM WELDER APPRENTICE ARC Kimmy Branham M.D. LAB BLOOD ADD-ON [facility] [address] [place] [address], [facility] [address] [place] [address] * (ABNORMAL) Phosphorus Inorganic (01/14/2024 8:15 AM WELDER APPRENTICE ARC) Phosphorus (Inorganic), S 2.0(L) 2.5 - 4.5 mg/dL 01/14/2024 9:30 AM WELDER APPRENTICE ARC DTL Blood (Blood, Venous) 01/14/2024 8:15 AM WELDER APPRENTICE ARC 01/14/2024 9:02 AM WELDER APPRENTICE ARC Kimmy Branham M.D. LAB BLOOD ADD-ON Performing Organization Address City/[facility]/ZIP Co de Phone Number [facility] [address] [place] [address], [facility] [address] [place] [address] * (ABNORMAL) Magnesium (01/14/2024 8:15 AM WELDER APPRENTICE ARC) Magnesium, S 1.5(L) 1.7 - 2.3 mg/dL 01/14/2024 9:30 AM WELDER APPRENTICE ARC DTL Blood (Blood, Venous) 01/14/2024 8:15 AM WELDER APPRENTICE ARC 01/14/2024 9:02 AM WELDER APPRENTICE ARC Kimmy Branham M.D. LAB BLOOD ADD-ON Performing Organization Address City/[facility] Co de Phone Number [facility] [address] [place] [address], [facility] [address] [place] [address] * (ABNORMAL) Comprehensive Metabolic Panel (01/14/2024 8:15 AM WELDER APPRENTICE ARC) Potassium, S 3.9 3.6 - 5.2 mmol/L 01/14/2024 9:30 AM WELDER APPRENTICE ARC DTL Sodium, S 132(L) 135 - 145 mmol/L 01/14/2024 9:30 AM WELDER APPRENTICE ARC DTL Chloride, S 98 98 - 107 mmol/L 01/14/2024 9:30 AM WELDER APPRENTICE ARC DTL Bicarbonate, S 24 22 - 29 mmol/L 01/14/2024 9:30 AM WELDER APPRENTICE ARC DTL Anion Gap 10 7 - 15 01/14/2024 9:30 AM WELDER APPRENTICE ARC DTL BUN (Blood Urea Nitrogen), S 17 6 - 21 mg/dL 01/14/2024 9:30 AM WELDER APPRENTICE ARC DTL Creatinine 1.07(H) 0.59 - 1.04 mg/dL 01/14/2024 9:30 AM WELDER APPRENTICE ARC DTL Estimated GFR (eGFR) 61 >=60 mL/min/BS A 01/14/2024 9:30 AM WELDER APPRENTICE ARC DTL Comment: Estimated GFR calculated using the 2020 CKD_EPI creatinine equation. Calcium, Total, S 8.9 8.6 - 10.0 mg/dL 01/14/2024 9:30 AM WELDER APPRENTICE ARC DTL Glucose, S 94 70 - 140 mg/dL 01/14/2024 9:30 AM WELDER APPRENTICE ARC DTL Protein, Total, S 6.4 6.3 - 7.9 g/dL 01/14/2024 9:30 AM WELDER APPRENTICE ARC DTL Albumin, S 4.1 3.5 - 5.0 g/dL 01/14/2024 9:30 AM WELDER APPRENTICE ARC DTL Aspartate Aminotransferase (AST), S 17 8 - 43 U/L 01/14/2024 9:30 AM WELDER APPRENTICE ARC DTL Alkaline Phosphatase, S 65 35 - 104 U/L 01/14/2024 9:30 AM WELDER APPRENTICE ARC DTL Alanine Aminotransferase (ALT), S 14 7 - 45 U/L 01/14/2024 9:30 AM WELDER APPRENTICE ARC DTL Bilirubin, Total, S 0.5 0.0 - 1.2 mg/dL 01/14/2024 9:30 AM WELDER APPRENTICE ARC DTL Blood (Blood, Venous) 01/14/2024 8:15 AM WELDER APPRENTICE ARC 01/14/2024 9:02 AM WELDER APPRENTICE ARC Kimmy Branham M.D. LAB BLOOD ADD-ON [address] [address], [facility] [address] [place] [address] * (ABNORMAL) CBC with Differential, Blood (01/14/2024 8:15 AM WELDER APPRENTICE ARC) Hemoglobin 11.2(L) 11.6 - 15.0 g/dL 01/14/2024 8:48 AM WELDER APPRENTICE ARC DTL Hematocrit 33.5(L) 35.5 - 44.9 % 01/14/2024 8:48 AM WELDER APPRENTICE ARC DTL Erythrocytes 3.59(L) 3.92 - 5.13 x10(12)/L 01/14/2024 8:48 AM WELDER APPRENTICE ARC DTL MCV 93.3 78.2 - 97.9 fL 01/14/2024 8:48 AM WELDER APPRENTICE ARC DTL RBC Distrib Width 13.3 12.2 - 16.1 % 01/14/2024 8:48 AM WELDER APPRENTICE ARC DTL Platelet Count 202 157 - 371 x10(9)/L 01/14/2024 8:48 AM WELDER APPRENTICE ARC DTL Leukocytes 11.8(H) 3.4 - 9.6 x10(9)/L 01/14/2024 8:48 AM WELDER APPRENTICE ARC DTL Neutrophils 10.48(H) 1.56 - 6.45 x10(9)/L 01/14/2024 8:48 AM W[employer] DHPM Lymphocytes 0.54(L) 0.95 - 3.07 x10(9)/L 01/14/2024 8:48 AM [employer] DTL Monocytes 0.73 0.26 - 0.81 x10(9)/L 01/14/2024 8:48 AM [employer] DTL Eosinophils 0.03 0.03 - 0.48 x10(9)/L 01/14/2024 8:48 AM [employer] DTL Basophils 0.04 0.01 - 0.08 x10(9)/L 01/14/2024 8:48 AM [employer] DTL Blood (Blood, Venous) 01/14/2024 8:15 AM [employer] [facility] 01/14/2024 8:29 AM [employer] Kimmy Branham M.D. LAB BLOOD ADD-ON [facility] [address] [place] [address], [facility] DTL [facility] [address] [place] [address] [facility] [address] [place] [address] * APTT (Activated Partial Thromboplastin Time) (01/14/2024 8:14 AM WELDER APPRENTICE ARC) [facility] Activated Partial Thrombopl Time, P 29 25 - 37 sec 01/14/2024 9:04 AM WELDER APPRENTICE ARC DTL Blood (Blood, Venous) 01/14/2024 8:14 AM WELDER APPRENTICE ARC 01/14/2024 8:29 AM WELDER APPRENTICE ARC Kimmy Branham M.D. LAB BLOOD ADD-ON Performing Organization Address City/[facility] Co de Phone Number [facility] [address] [place] [address], [facility] [address] [place] [address] * Prothrombin Time (PT) (01/14/2024 8:14 AM WELDER APPRENTICE ARC) Prothrombin Time, P 11.4 9.4 - 12.5 sec 01/14/2024 9:04 AM WELDER APPRENTICE ARC DTL INR 1.0 0.9 - 1.1 01/14/2024 9:04 AM WELDER APPRENTICE ARC DTL Comment: ----ADDITIONAL INFORMATION---- Standard intensity warfarin therapeutic range: 2.0 to 3.0 ?? High intensity warfarin therapeutic range: 2.5 to 3.5 Blood (Blood, Venous) 01/14/2024 8:14 AM WELDER APPRENTICE ARC 01/14/2024 8:29 AM WELDER APPRENTICE ARC Kimmy Branham M.D. 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
--- OUTSIDE RECORDS SUMMARY | 2024-03-12 05:57 | XMS_ITS | Encounter Summary ---
Author Name Unknown Organization [facility] Address [address] [place] [address] Care Team Providers Care Metal Fitter Name Role Phone Elsewhere, Pcp Primary Care Provider Unavailabl e Encounter Details Date Type Department Care Team (Late st Contact Info) Description 01/17/2024 Orders Only Joon Peña [facility] [place] [facility] in [place], [place] [address] [place] [address] Charu Alicea, RSravanthiN. Aftercare Transplant Renal (HCC) (Primary Dx); High 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; Immunodeficiency Due To Drugs (HCC) Social History [...] often do you attend chur ch or adventism services? 1 to 4 times per year 02/13/2023 Do you belong to any clubs o r organizations such as sabianism groups, unions, fraternal or athletic groups, or [...] Answer Date Recorded PHQ-2 Score 0 09/10/2023 [facility] [place] [facility] - Occupational Stress [...] place to sleep or slept in a detention (including now)? No 02/13/2023 Depression Answer Date [...] Sex Assigned at Female 11/13/2018 9:36 AM MAINTENANCE INSTRUCTOR Gender Identity Female 11/13/2018 9:36 AM MAINTENANCE INSTRUCTOR Sexual Orientation Straight 11/13/2018 9: 36 AM MAINTENANCE INSTRUCTOR documented as of this encounter Plan of Treatment Upcoming Encounters Date Type Department Care Team (Latest Contact Info) Description 03/17/2024 7:20 AM CDT Appointment Department of Laboratory Medicine in [address] [phone] Angelica Hutchins M.D. [address] [place] [phone] 03/24/2024 7:10 AM CDT Appointment Department of Laboratory Medicine in [address] [phone] Juan Grier, STUART, C.N.P., M.S.N. [address] [place] [phone] 03/24/2024 7:20 AM CDT Appointment Department of Laboratory Medicine in [address] [phone] Angelica Hutchins M.D. [address] [place] [phone] 04/07/2024 8:20 AM CDT Appointment Department of Laboratory Medicine in [address] [phone] Angelica Hutchins M.D. [address] [place] [phone] 04/14/2024 8:00 AM CDT Appointment Department of Laboratory Medicine in [address] [phone] Angelica Hutchins M.D. [address] [place] [phone] 04/15/2024 2:00 PM CDT Clinical Communication Virtual Review in [address] [address] 04/17/2024 11:00 AM CDT Office Visit Department of Neurology in [place], [place] [address] [place] [phone] Wang Bass M.D. [address] [place] [phone] 04/22/2024 7:20 AM CDT Appointment Department of Laboratory Medicine in [address] [phone] Angelica Hutchins M.D. [address] [place] [phone] 04/28/2024 7:20 AM CDT Appointment Department of Laboratory Medicine in [address] [phone] Angelica Hutchins M.D. [address] [place] [phone] 04/28/2024 7:40 AM CDT Appointment Department of Laboratory Medicine in [address] [phone] Angelica Hutchins M.D. [address] [place] [phone] 05/05/2024 7:50 AM CDT Appointment Department of Laboratory Medicine in [address] [phone] Angelica Hutchins M.D. [address] [place] [phone] 05/12/2024 7:20 AM CDT Appointment Department of Laboratory Medicine in [address] [phone] Angelica Hutchins M.D. [address] [place] [phone] 05/19/2024 7:20 AM CDT Appointment Department of Laboratory Medicine in [address] [phone] Angelica Hutchins M.D. [address] [place] [phone] 05/26/2024 7:20 AM CDT Appointment Department of Laboratory Medicine in [address] [phone] Angelica Hutchins M.D. [address] [place] [phone] 05/26/2024 7:30 AM CDT Appointment Department of Laboratory Medicine in [address] [phone] Angelica Hutchins M.D. [address] [place] [phone] 06/02/2024 7:20 AM CDT Appointment Department of Laboratory Medicine in [address] [phone] Angelica Hutchins M.D. [address] [place] [phone] 06/30/2024 7:20 AM CDT Appointment Department of Laboratory Medicine in [address] [phone] Angelica Hutchins M.D. [address] [place] [phone] 06/30/2024 7:30 AM CDT Appointment Department of Laboratory Medicine in [address] [phone] Angelica Hutchins M.D. [address] [place] [phone] 07/29/2024 7:20 AM CDT Appointment Department of Laboratory Medicine in [address] [phone] Angelica Hutchins M.D. [address] [place] [phone] 07/29/2024 7:30 AM CDT Appointment Department of Laboratory Medicine in [address] [phone] Angelica Hutchins M.D. [address] [place] [phone] documented as of this encounter Results * (ABNORMAL) BKV DNA Detect/Quant (01/18/2024 8:13 AM MAINTENANCE INSTRUCTOR) [facility] BKV DNA Detect/Quant, P 266(A) Undetected IU/mL 01/18/2024 6:33 PM MAINTENANCE INSTRUCTOR [facility] Comment: Result in log IU/mL is 2.42. ----ADDITIONAL INFORMATION---- The quantification range of this assay is 22 to 100,000,000 IU/mL (1.34 log to 8.00 log IU/mL). Testing was performed using the chari BKV test ([employer] Blood (Blood, Venous) 01/18/2024 8:13 AM MAINTENANCE INSTRUCTOR 01/18/2024 10:17 AM MAINTENANCE INSTRUCTOR Juan Grier APRN C.N.P., M.S.N. LAB MICROBIOLOGY - BLOOD ORDERABLES [facility] [address] [place] [address] [facility] [address] [place] [address] [place] [address] * (ABNORMAL) Magnesium (01/18/2024 8:13 AM MAINTENANCE INSTRUCTOR) Magnesium, S 1.6(L) 1.7 - 2.3 mg/dL 01/18/2024 9:33 AM MAINTENANCE INSTRUCTOR DTL Blood (Blood, Venous) 01/18/2024 8:13 AM MAINTENANCE INSTRUCTOR 01/18/2024 9:10 AM MAINTENANCE INSTRUCTOR Juan Grier APRN, C.N.P., M.S.N. LAB BLOOD ADD-ON Performing Organization Address City/[facility]/ZIP Co de Phone Number [facility] [address] 200 [place] [address] * Phosphorus Inorganic (01/18/2024 8:13 AM MAINTENANCE INSTRUCTOR) Pathologist [facility] Phosphorus (Inorganic), S 3.3 2.5 - 4.5 mg/dL 01/18/2024 9:33 AM MAINTENANCE INSTRUCTOR DTL Blood (Blood, Venous) 01/18/2024 8:13 AM MAINTENANCE INSTRUCTOR 01/18/2024 9:10 AM MAINTENANCE INSTRUCTOR Juan Grier APRN, C.N.P., M.S.N. LAB BLOOD ADD-ON [facility] [address] 200 [place] [address] * Tacrolimus, Trough (01/18/2024 8:13 AM MAINTENANCE INSTRUCTOR) Pathologist [facility] Tacrolimus, Trough 7.6 5.0-15.0 (Trough) ng/mL 01/18/2024 2:07 PM MAINTENANCE INSTRUCTOR [facility] Comment: ----ADDITIONAL INFORMATION---- Target steady-state trough concentrations vary depending on the type of transplant, concomitant immunosuppression, clinical/institutional protocols, and time post-transplant. Results should be interpreted in conjunction with this clinical information and any physical signs/symptoms of rejection/toxicity. Testing performed by Liquid Chromatography-Tandem Mass Spectrometry (LC-MS/MS). This test was developed and its performance characteristics determined by [facility] in a manner consistent with CLIA requirements. This test has not been cleared or approved by the U.S. Food and Drug Administration. Blood (Blood, Venous) 01/18/2024 8:13 AM MAINTENANCE INSTRUCTOR 01/18/2024 10:24 AM MAINTENANCE INSTRUCTOR Marlena Stewart APRNN.Hannah., M.S.N. LAB BLOOD NON ADD-ON [facility] [address] [place] [address] [facility] [address] [place] [address] [place] [address] * (ABNORMAL) Basic Metabolic Panel (01/18/2024 8:13 AM MAINTENANCE INSTRUCTOR) Pathologist [facility] Potassium, S 4.0 3.6 - 5.2 mmol/L 01/18/2024 9:33 AM MAINTENANCE INSTRUCTOR DTL Sodium, S 134(L) 135 - 145 mmol/L 01/18/2024 9:33 AM MAINTENANCE INSTRUCTOR DTL Chloride, S 101 98 - 107 mmol/L 01/18/2024 9:33 AM MAINTENANCE INSTRUCTOR DTL Bicarbonate, S 22 22 - 29 mmol/L 01/18/2024 9:33 AM MAINTENANCE INSTRUCTOR DTL Anion Gap 11 7 - 15 01/18/2024 9:33 AM MAINTENANCE INSTRUCTOR DTL BUN (Blood Urea Nitrogen), S 14 6 - 21 mg/dL 01/18/2024 9:33 AM MAINTENANCE INSTRUCTOR DTL Creatinine 0.96 0.59 - 1.04 mg/dL 01/18/2024 9:33 AM MAINTENANCE INSTRUCTOR DTL Estimated GFR (eGFR) 69 >=60 mL/min/BSA 01/18/2024 9:33 AM MAINTENANCE INSTRUCTOR DTL Comment: Estimated GFR calculated using the 2020 CKD_EPI creatinine equation. Calcium, Total, S 9.0 8.6 - 10.0 mg/dL 01/18/2024 9:33 AM MAINTENANCE INSTRUCTOR DTL Glucose, S 78 70 - 140 mg/dL 01/18/2024 9:33 AM MAINTENANCE INSTRUCTOR DTL Blood (Blood, Venous) 01/18/2024 8:13 AM MAINTENANCE INSTRUCTOR 01/18/2024 9:10 AM MAINTENANCE INSTRUCTOR Juan Grier APRN, C.N.P., M.S.N. LAB BLOOD ADD-ON [facility] [address] [place] [address], [facility] DTL [facility] [address] [place] [address] * (ABNORMAL) CBC with Differential, Blood (01/18/2024 8:13 AM MAINTENANCE INSTRUCTOR) Hemoglobin 10.1(L) 11.6 - 15.0 g/dL 01/18/2024 8:56 AM MAINTENANCE INSTRUCTOR DTL Hematocrit 29.9(L) 35.5 - 44.9 % 01/18/2024 8:56 AM MAINTENANCE INSTRUCTOR DTL Erythrocytes 3.29(L) 3.92 - 5.13 x10(12)/L 01/18/2024 8:56 AM MAINTENANCE INSTRUCTOR DTL MCV 90.9 78.2 - 97.9 fL 01/18/2024 8:56 AM MAINTENANCE INSTRUCTOR DTL RBC Distrib Width 13.1 12.2 - 16.1 % 01/18/2024 8:56 AM MAINTENANCE INSTRUCTOR DTL Platelet Count 240 157 - 371 x10(9)/L 01/18/2024 8:56 AM MAINTENANCE INSTRUCTOR DTL Leukocytes 8.1 3.4 - 9.6 x10(9)/L 01/18/2024 8:56 AM MAINTENANCE INSTRUCTOR DTL Neutrophils 6.70(H) 1.56 - 6.45 x10(9)/L 01/18/2024 8:56 AM MAINTENANCE INSTRUCTOR [facility] Lymphocytes 0.67(L) 0.95 - 3.07 x10(9)/L 01/18/2024 8:56 AM MAINTENANCE INSTRUCTOR DTL Monocytes 0.57 0.26 - 0.81 x10(9)/L 01/18/2024 8:56 AM MAINTENANCE INSTRUCTOR DTL Eosinophils 0.08 0.03 - 0.48 x10(9)/L 01/18/2024 8:56 AM MAINTENANCE INSTRUCTOR DTL Basophils 0.04 0.01 - 0.08 x10(9)/L 01/18/2024 8:56 AM MAINTENANCE INSTRUCTOR DTL Blood (Blood, Venous) 01/18/2024 8:13 AM MAINTENANCE INSTRUCTOR 01/18/2024 8:43 AM MAINTENANCE INSTRUCTOR Juan Grier APRN C.N.P., M.S.N. LAB BLOOD ADD-ON [facility] [address] [place] [address], [facility] DTL [facility] [address] [place] [address] DHPM [facility] [address] [place] [address] documented in this encounter Visit Diagnoses Diagnosis Aftercare Transplant Renal (HCC)- Primary High 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 Immunodeficiency Due To Drugs (HCC) documented in this encounter Additional Health Concerns Infection Onset Date Last Indicated Resolved Time Protective Environment 03/08/2023 03/08/2023 Assessment Noted Time PHQ-9 Depression Total Score: 1 11/23/20 19 7:04 PM MAINTENANCE INSTRUCTOR documented as of this encounter Care Teams Metal Fitter Relationship Specialty Start Date End Date Elsewhere, Pcp PCP - General Silviculture Teacher 11/24/[address] [address] Laboratory Medicine 09/18/20 documented as of this encounter
--- OUTSIDE RECORDS SUMMARY | 2024-03-12 05:57 | XMS_ITS | Encounter Summary ---
Author Name Unknown Organization [facility] Address [address] [place] [address] Care Team Providers Care Loss Control Representative Name Role Phone Elsewhere, Pcp Primary Care Provider Unavailabl e Encounter Details Date Type Department Care Team (Late st Contact Info) Description 01/15/[address] [facility] [place], [place] [address] [place] [phone] Jessie Decker M.D. [address] [place] [address] Social History Tobacco Use Types Packs/Day Years [...] any clubs o r organizations such as buddhism groups, unions, fraternal or athletic groups, or [...] Answer Date Recorded PHQ-2 Score 0 09/10/2023 [facility] ional Health - Occupational [...] place to sleep or slept in a usp (including now)? No 02/13/2023 Depression Answer Date [...] Sex Assigned at Female 11/13/2018 9:36 AM FIELD KILN BURNER Gender Identity Female 11/13/2018 9:36 AM FIELD KILN BURNER Sexual Orientation Straight 11/13/2018 9: 36 AM FIELD KILN BURNER documented as of this encounter Progress Notes * Jessie Decker M.D. - 01/15/2024 1:32 PM CST I was called by emergency physician about this patient coming to ER with high fevers. She was seen for her 4 month posttransplant biopsy yesterday, complaining of fevers. Some workup was done, mostly for upper respiratory tract infection, that was negative. Today, your doctor is concerned about urinary tract infection, as her cultures were positive. There is no other source of fevers. She will receive ceftriaxone, and will be discharged from your iron cefdinir. 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 We have also reduced carvedilol dose, as she came hypotensive to emergency room. Our team will follow-up with her at the end of this week D KILN BURNER documented in this encounter Plan of Treatment Upcoming Encounters Date Type Department Care Team (Latest Contact Info) Description 03/17/2024 7:20 AM CDT Appointment Department of Laboratory Medicine in [address] [phone] Angelica Hutchins M.D. [address] [place] [phone] 03/24/2024 7:10 AM CDT Appointment Department of Laboratory Medicine in [address] [phone] Juan Grier APRN, C.N.P., M.S.N. [address] [place] [phone] 03/24/2024 7:20 AM CDT Appointment Department of Laboratory Medicine in [address] [phone] Angelica Hutchins M.D. [address] [place] [phone] 04/07/2024 8:20 AM CDT Appointment Department of Laboratory Medicine in [address] [phone] Angelica Hutchins M.D. [address] [place] [phone] 04/14/2024 8:00 AM CDT Appointment Department of Laboratory Medicine in [address] [phone] Angelica Hutchins M.D. [address] [place] [phone] 04/15/2024 2:00 PM CDT Clinical Communication Virtual Review in [place], [place] 200 [place] [address] 04/17/2024 11:00 AM CDT Office Visit Department of Neurology in [place], [place] [address] [place] [phone] Wang Bass M.D. [address] [place] [phone] 04/22/2024 7:20 AM CDT Appointment Department of Laboratory Medicine in [address] [phone] Angelica Hutchins M.D. [address] [place] [phone] 04/28/2024 7:20 AM CDT Appointment Department of Laboratory Medicine in [address] [phone] Angelica Hutchins M.D. [address] [place] [phone] 04/28/2024 7:40 AM CDT Appointment Department of Laboratory Medicine in [address] [phone] Angelica Hutchins M.D. [address] [place] [phone] 05/05/2024 7:50 AM CDT Appointment Department of Laboratory Medicine in [address] [phone] Angelica Hutchins M.D. [address] [place] [phone] 05/12/2024 7:20 AM CDT Appointment Department of Laboratory Medicine in [address] [phone] Angelica Hutchins M.D. [address] [place] [phone] 05/19/2024 7:20 AM CDT Appointment Department of Laboratory Medicine in [address] [phone] Angelica Hutchins M.D. [address] [place] [phone] 05/26/2024 7:20 AM CDT Appointment Department of Laboratory Medicine in [address] [phone] Angelica Hutchins M.D. [address] [place] [phone] 05/26/2024 7:30 AM CDT Appointment Department of Laboratory Medicine in [address] [phone] Angelica Hutchins M.D. [address] [place] [phone] 06/02/2024 7:20 AM CDT Appointment Department of Laboratory Medicine in [address] [phone] Angelica Hutchins M.D. [address] [place] [phone] 06/30/2024 7:20 AM CDT Appointment Department of Laboratory Medicine in [address] [phone] Angelica Hutchins M.D. [address] [place] [phone] 06/30/2024 7:30 AM CDT Appointment Department of Laboratory Medicine in [address] [phone] Angelica Hutchins M.D. [address] [place] [phone] 07/29/2024 7:20 AM CDT Appointment Department of Laboratory Medicine in [address] [phone] Angelica Hutchins M.D. [address] [place] [phone] 07/29/2024 7:30 AM CDT Appointment Department of Laboratory Medicine in [address] [phone] Angelica Hutchins M.D. [address] [place] [phone] documented as of this encounter Visit Diagnoses Not on filedocumented in this encounter Additional Health Concerns Infection Onset Date Last Indicated Resolved Time Protective Environment 03/08/2023 03/08/2023 Assessment Noted Time PHQ-9 Depression Total Score: 1 11/23/20 19 7:04 PM FIELD KILN BURNER documented as of this encounter Care Teams Loss Control Representative Relationship Specialty Start Date End Date Elsewhere, Pcp PCP - General Registered Nurse Teacher 11/24/[address] [address] Laboratory Medicine 09/18/20 documented as of this encounter
--- OUTSIDE RECORDS SUMMARY | 2024-03-12 05:57 | XMS_ITS | Encounter Summary ---
Author Name Unknown Organization [facility] Address [address] [place] [address] Care Team Providers Care Speech And Language Specialist Name Role Phone Elsewhere, Pcp Primary Care Provider Unavailabl e Reason for Visit * Reason Comments Weakness - Generalized Transplant pauly tan presents with concerns of weakness and low blood pressure . Pt states she had a complete work up in [place] Encounter Details Date Type Department Care Team (Late st Contact Info) Description 01/15/2024 9:47 AM MANAGER FIELD SALES - 01/15/2024 12:09 PM [facility] [address] [place] [phone] Aldo Collier, STUART, C.N.P., D.N.P. [address] [place] [address] Acute Cystitis Without Hematuria (Primary Dx); Transplant [...] you attend [facility] or orthodoxy services? 1 to 4 times per year 02/13/2023 Do you belong to any clubs o r organizations such as hinduism groups, unions, fraternal or athletic groups, or [...] place to sleep or slept in a halfway (including now)? No 02/13/2023 Depression Answer Date [...] Sex Assigned at Female 11/13/2018 9:36 AM MANAGER FIELD SALES Gender Identity Female 11/13/2018 9:36 AM MANAGER [employer]ELD SALES Sexual Orientation Straight 11/13/2018 9: 36 AM MANAGER FIELD SALES documented as of this encounter Last Filed Vital Signs Vital Sign Reading Time Taken Comments Blood Pressure 125/73 01/15/2024 11:45 AM MANAGER [employer]ELD SALES Pulse 80 01/15/2024 11:45 AM MANAGER [employer]ELD SALES Temperature 36.5 ??C (97.7 ??F) 01/15/2024 10:[address] Respiratory Rate 23 01/15/2024 10:15 AM MANAGER [employer]ELD SALES Oxygen Saturation 97% 01/15/2024 11:45 AM MANAGER [employer]ELD SALES Inhaled Oxygen Concentration - - Weight 72 kg (158 lb 11.7 oz) 01/15/2024 9:59 AM MANAGER [employer]ELD SALES Height - - Body Mass Index 29.02 01/14/2024 9:34 AM MANAGER FIELD SALES documented in this encounter Discharge Instructions * Discharge Instructions* Aldo Collier APRN, C.N.P., D.N.P. - 01/15/2024 11:48 AM MANAGER [employer]ELD SALES Reduce your blood pressure medication (carvedilol) to 1 tablet daily until further notice by the kidney transplant team. Reduce your CellCept to 250 mg twice a day, they will recheck labs next week to see what your levelis and then readjust from there. The cefdinir antibiotic can be started tomorrow morning, take this twice a day for 10 days make sure you finish it. Increase fluids. Get lots of rest. Return to the emergency department for profound hypotension, nausea or vomiting, worsening or new back pain or any other worrisome symptoms. You can also talked to the transplant team prior to coming in and they can assist you in what to do. Thank you for utilizing [facility] for your care! GER [employer] SALES * Attachments The following attachments cannot be sent through Care Everywhere. * Urinary Tract Infection Adult Vihy-qc-Xqax (Martiniquais) documented in this encounter Medications at Time [...] by mouth 2 (two) times a day. 360 tablet 12/20/2023 01/18/2024 tacrolimus (PROGRAF) 1 mg capsuleIndications:Imm unodeficiency Due To Drugs (HCC),High 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,Transplant Renal (HCC) Take 1 capsule (1 mg total) by mouth 2 (two) times a day. 180 capsule 3 11/23/2023 01/29/2024 documented as of this encounter ED Notes * Aldo Collier, STUART, C.N.P., D.N.P. - 01/15/2024 10:00 AM CST Images from the original note were not included. CHIEF COMPLAINT/REASON FOR VISIT Weakness - Generalized (Transplant patient presents with concerns of weakness and low blood pressure . Pt states she had a complete work up in [place] [facility]) HISTORY OF PRESENT ILLNESS Patient is status post kidney transplant, this is the third transport for her, the transplant was roughly 4 months ago. She has had no postoperative complications from it. She went down to the clinicyesterday for just a routine checkup, was found to have a fever of 103. They did a complete workup including COVID, influenza, RSV which were negative. Blood cultures were drawn, urinalysis was completed and urine cultures were also completed. She was discharged to home, [facility] Her blood pressure at that time was 1:50 a.m. systolic, they told her totake 1/2 dose of her blood pressure medication and which she did, short time later her blood pressure was found to be 70/40, she was complaining of weakness and dizziness. They did call the kidney transplant clinic back and they were instructed to come to the emergency department for further workupand care. Patient only has a scratchy throat the rest of her ROS is negative with the exception of some diarrhea yesterday but none today. No belly pain associated with this. Strep was negative yesterday, please see the nurse practitioner's note from yesterday's visit. History provided by: Patient and significant other public policy manager needed/used: no REVIEW OF SYSTEMS Constitutional: Positive for activity change, appetite change, fatigue and fever. Negative for chills and diaphoresis. HENT: Positive for sore throat. Negative for sinus pressure. Respiratory: Negative for cough, chest tightness and shortness of breath. Cardiovascular: Negative for chest pain. Gastrointestinal: Negative for abdominal pain, constipation, diarrhea, nausea and vomiting. Genitourinary: Negative for dysuria, frequency and urgency. Musculoskeletal: Negative for arthralgias and myalgias. Skin: Negative for rash. Neurological: Negative for dizziness, weakness and headaches. Hematological: Negative for adenopathy. Does not bruise/bleed easily. All other systems reviewed and are negative. Allergies Reviewed in medical record Current Medications Reviewed in Medical Record. 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 Blood Transfusion No Diagnosis 1983 many, last was 04/2022 during COVID hospitalization Cancer Skin Basal Cell Personal History first episode 2019, multiple Hypertension Essential Primary 1983 Lupus Nephritis (HCC) 1980 Multiple Sclerosis (HCC) 2020 Some MRI findings, annual monitoring, not on therapy,relapsing type. Started with L face numbness. 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, with recurrence, invasive, first noted 10/2021, biopsy 01/2022 fully resected, recurred in 3 months, seen 10/2022, to have MOHS 01/2023 Patient Active Problem List Diagnosis Complication Kidney [...] Vitamin D Hyperparathyroidism Renal Secondary (HCC) Hypophosphatemia Surgical Past Surgical History: Procedure Laterality Date ARTHRODESIS OF ANKLE Right 11/07/2021 Procedure: Right ARTHRODESIS ANKLE.; Surgeon: Elio Hernandez M.D.; Location: [place] [address] OR SECTION 02/20/1998 JOINT REPLACEMENT bilateral knee and hip replacements JOINT REPLACEMENT In file-multiple TRANSPLANT KIDNEY - RECIPIENT OF DONOR WITH BACK TABLE PREP KIDNEY ALLOGRAFT 1987 [facility], failed [id number] TRANSPLANT KIDNEY - RECIPIENT OF LIVING DONOR [...] KIDNEY ALLOGRAFT.; Surgeon: Grant Godinez M.D.; Location: [facility] OR Family Reviewed in Medical Record Social History Social History Tobacco Use Smoking status: Never Smokeless tobacco: Never Substance Use Topics Alcohol use: No Social History Substance and Sexual Activity Drug Use No OBJECTIVE Initial Vital Signs / Weights Initial Vitals Temperature 01/15/24 0958 36.9 ??C Pulse Rate 01/15/24 1000 86 Heart Rate 01/15/24 1000 86 Resp Rate 01/15/24 0958 20 Blood Pressure 01/15/24 0958 145/87 SpO2 01/15/24 0958 100 % Pain Score 01/15/24 0959 0 - No pain Wt Readings from Last 3 Encounters: 01/15/24 72 kg 01/14/24 72.2 kg 11/06/23 72.3 kg PHYSICAL EXAMINATION Constitutional: Nursing note and vitals reviewed. No distress. Appears to be no acute distress but does appear tired. HENT: Mouth/Throat: Oropharynx is clear and moist. Mucous membranes are moist. No tonsillar exudate. Eyes: Conjunctivae and EOM are normal. Pupils are equal, round, and reactive to light. Neck: Neck supple. Cardiovascular: Normal rate, regular rhythm, S1 normal, S2 normal and normal heart sounds. Pulses are strong and palpable. No murmur heard.Capillary refill: takes less than 3 seconds Pulmonary/Chest: Effort normal and breath sounds normal. There is normal air entry. No respiratory distress. Abdominal: Soft. Bowel sounds are normal. There is no abdominal tenderness. There is no rebound andno guarding. Musculoskeletal: General: Normal range of motion. Cervical back: Normal range of motion and neck supple. Lymphadenopathy: She has no cervical adenopathy. Neurological: Alert and oriented to person, place, and time. No cranial nerve deficit. Skin: Skin is warm, dry and intact. Psychiatric: She has a normal mood and affect. DIAGNOSTICS Labs Labs Reviewed CBC WITH DIFFERENTIAL, B - Abnormal Result Value Hemoglobin 10.8 (*) Hematocrit 32.2 (*) Erythrocytes 3.47 (*) MCV 92.8 RBC Distrib Width 13.3 Platelet Count 174 Leukocytes 13.3 (*) Neutrophils 11.91 (*) Lymphocytes 0.40 (*) Monocytes 0.94 (*) Eosinophils <0.04 Basophils <0.04 COMPREHENSIVE METABOLIC PANEL, S/P - Abnormal Potassium, P 4.1 Sodium, P 133 (*) Chloride, P 102 Bicarbonate, P 22 Anion Gap, P 9 BUN (Blood Urea Nitrogen), P 15 Creatinine 1.08 (*) Estimated GFR (eGFR) 60 Calcium, Total, P 8.6 Glucose, P 190 (*) Protein, Total, P 6.4 Albumin, P 3.6 Aspartate Aminotransferase (AST), P 19 Alkaline Phosphatase, P 62 Alanine Aminotransferase (ALT), P 15 Bilirubin, Total, P 0.6 URINALYSIS WITH MICROSCOPIC IF INDICATED, U - Abnormal Source Midstream Clarity Clear Color Yellow Blood Negative Nitrite Negative Leukocyte Esterase Negative Protein 30 (*) Glucose 100 (*) Ketones, QI(U) Trace (*) Bilirubin Small (*) pH 5.5 Specific Newton 1.020 Urobilinogen 0.2 C-REACTIVE PROTEIN (CRP), S/P - Abnormal C-Reactive Protein (CRP), P 69.3 (*) MICROSCOPIC MANUAL - Abnormal White Blood Cells 4-10 Red Blood Cells Occ-2 Hyaline Casts 41-50 Squamous Cells 4-10 Bacteria Present (*) VBG (VENOUS BLOOD GAS), POCT, B - Abnormal pH, Venous, POCT, B 7.38 pCO2, Venous, POCT, B 29 (*) pO2, Venous, POCT, B 57 HCO3, Venous, POCT, B 17 Base Excess, Venous, POCT, B -8 O2 Saturation, Venous, POCT, B 89 Sample Type, Blood Gas, POCT CATA BACTERIAL CULTURE, AEROBIC + SUSC, URINE BACTERIA / PHOEBE CULTURE, BLOOD Narrative: Specimen Information: Specimen ID: [id number] Specimen Source: Blood, Peripheral Draw Specimen Collection Start Date: 01/15/2024 10:28 AM Specimen Received Date: 01/15/2024 10:28 AM Specimen ID: [id number] Specimen Source: Blood, Peripheral Draw Specimen Collection Start Date: 01/15/2024 10:28 AM Specimen Received Date: 01/15/2024 10:28 AM Specimen ID: [id number] Specimen Source: Blood, Peripheral Draw Specimen Collection Start Date: 01/15/2024 10:28 AM Specimen Received Date: 01/15/2024 10:28 AM BACTERIA / PHOEBE CULTURE, BLOOD Narrative: Specimen Information: Specimen ID: [id number] Specimen Source: Blood, Peripheral Draw Specimen Collection Start Date: 01/15/2024 10:28 AM Specimen Received Date: 01/15/2024 10:28 AM Specimen ID: [id number] Specimen Source: Blood, Peripheral Draw Specimen Collection Start Date: 01/15/2024 10:28 AM Specimen Received Date: 01/15/2024 10:28 AM Specimen ID: [id number] Specimen Source: Blood, Peripheral Draw Specimen Collection Start Date: 01/15/2024 10:28 AM Specimen Received Date: 01/15/2024 10:28 AM LACTATE, B/P Lactate, P 2.0 Radiology DX Chest AP or PA and Lateral 2 Views Final Result No significant change from 08/30/2023. Prominent fat pad at the cardiac apex. Stable small bone island in the anterior left second rib. Old healed right rib fractures. Chest otherwise negative. Procedures None See separate procedure note. ED COURSE ED Course as of 01/15/24 1210 e Jan 15, 2024 0855 I performed my initial evaluation of the patient. We discussed Emergency Department course including testing, treatment, and potential disposition based on findings. 1014 Leukocytes(!): 13.3 1015 Neutrophils(!): 11.91 1015 Gram stain on urine yesterday per chart review shows gram positive bacillus. 1019 Lactate: 2.0 1026 Creatinine(!): 1.08 1.07 yesterday in the clinic. Baseline appears to be 0.9 1026 C-Reactive Protein (CRP), P(!): 69.3 elevated 1055 IMPRESSION: No significant change from 08/30/2023. Prominent fat pad at the cardiac apex. Stable small bone island in the anterior left second rib. Old healed right rib fractures. Chest otherwise negative. 1058 Bacteria(!): Present 1119 I discussed the case with Yudith in [facility] requested kidney transplant consultation for her urine positive g stain. 1127 Patient updated on need for transplant consultation. 1139 Discussed the case with Dr. Decker from medicine kidney transplant. He recommends a cephalosporin antibiotic therapy with ceftriaxone 1 dose in the emergency department, continue did treat for 10days with cefdinir as an outpatient. She also recommend reducing the Coreg to 1 tablet per day or 12.5 mg. She also recommends reducing the CellCept 250 mg twice a day and the repeat the lab next week. 1156 I discussed the plan for discharge with the patient, and patient/family is agreeable. I discussed with patient the utility, limitations, and findings of the exam/interventions/studies done during this visit as well as the list of differential diagnosis. Patient understands provisional nature of this diagnosis and need for follow up. We discussed the plan of care, including supportive cares. We also discussed symptoms to monitor and symptoms that should prompt them to return for re-evaluation including new or worsening symptoms. All questions and concerns addressed. Patient to be discharged by RN. Final Diagnoses: as of 01/15/24 1210 Acute Cystitis Without Hematuria 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) INTERVENTIONS Medications cefTRIAXone injection 2 g (ROCEPHIN) (2 g intravenous Given 01/15/24 1158) MEDICAL DECISION MAKING Assessment and Plan Patient presents to the emergency department with complaints of generalized weakness, fever, and hypotension at home with a blood pressure of 70 systolic. Please see history for full presentation. Patient is status post renal transplant, this is the third time, transplant was 4 months ago. She was seen yesterday in the clinic for routine follow-up posttransplant was found to have a fever of up to103. Multiple labs were completed including blood cultures, urine cultures, the patient was sent home out any management is there was no focal infection identified. Patient woke up this morning with a fever up to 103 again, they called the transplant center recommended taking 1/2 dose of blood pressure medication for which she did. He checked her blood pressure later because she felt weak and dizzy in her blood pressure was 70 systolic in his for this reason she comes to the emergency department for further evaluation. Differential diagnosis for fever includes but is not limited to viral infection, seasonal influenza, COVID-19, UTI, strep pharyngitis, otitis media, pneumonia, meningitis or sepsis. Labs: A viral testing was done yesterday including COVID, RSV, influenza, and respiratory pathogen panel which was negative. Her white count has gone up slightly to 12 with a leukocytosis in the emergency department. Her CRP is elevated. Her lactate is at 2, patient was given a L of fluid for this.Strep pharyngitis was negative. Urine essentially appeared negative however g stain yesterday did show some Gram-positive bacilli, and culture today grew out STAPHYLOCOCCUS LUGDUNENSIS. Imaging: Abdomen was soft flat, no back pain, did not feel imaging was needed on today's visit unless directed by the transplant service. I did discuss the case with medicine transplant Service, I did talk to Dr. Decker, who recommends starting the patient on cephalosporins, ceftriaxone 1 g IV and then discharged on cefdinir for 10 days. She recommended decreasing her blood pressure medication to 1 tablet every day of the carvedilol, and then also reducing her CellCept 250 mg twice per day. Patient was instructed on this and this was written in her discharge instructions. Based on history, exam and diagnostic test results, the most likely cause of fever in this patient is urinary tract infection. Patient does not meet severe sepsis or septic shock criteria. Plan of care includes: She will be given a dose of 1 g ceftriaxone in the emergency department. Will continue outpatient therapy with cefdinir 300 mg b.i.d. for 10 days. She was also instructed to reduce her blood pressure medication as above as well as reduce her CellCept as above. Patient overallfelt improved after fluids. Blood pressures have always been normal in the emergency department with a systolic blood pressure of 120 over 70s with maps in the 80 range. She has been afebrile in our emergency department also. Red flag symptoms were also reviewed with the patient that should return them to the ED including but not limited to; worsening, fever, chills, sweats, headache, dizziness, signs of dehydration, worsening presentation symptoms . DIFFERENTIAL DIAGNOSES As above. PROBLEMS ADDRESSED THIS VISIT As above. Care is significantly affected by the following Social Determinants of Health: none. I reviewed the following external records: primary care records, prior outpatient labs, prior outpatient radiology tests and inpatient records. The following tests were considered but ultimately not performed: none. Escalation of care, including admission/observation, considered: Did consider admission and discussthis with Dr. Decker who felt the patient could be managed as an outpatient. I agree with this assessment as the patient appears nontoxic, blood pressures have been normal in our emergency department and she continues to remain afebrile in our emergency department.. I discussed the management of the patient with: [facility] kidney transplant service. DIAGNOSIS Final diagnoses: [N30.00] Acute Cystitis Without Hematuria [Z94.0] Transplant Renal (HCC) [D84.821] Immunodeficiency Due To Drugs (HCC) DISPOSITION Home or Self Care DISCHARGE/TRANSFER VITAL SIGNS Vitals: 01/15/24 1145 BP: 125/73 Pulse: 80 Resp: Temp: SpO2: 97% ED DISCHARGE MEDS ED Prescriptions Medication Sig Dispense Start Date End Date Auth. Provider cefdinir (OMNICEF) 300 mg capsule Take 1 capsule (300 mg total) by mouth 2 (two) times a day beforebreakfast and dinner for 10 days. 20 capsule 01/15/2024 01/25/2024 Aldo Collier APRN, C.N.P., D.N.P. FOLLOW UP Contact Information for Follow-ups Transplant service Next Steps: Follow up in 1 week(s) Instructions: Transplant service should call you next week for labs. Aldo Collier, CHRISTIANO, RN APPEALS, PRODUCT MARKETING SPECIALIST-C, AGACNP-BC, ENP-C Emergency Medicine Aldo Collier APRN, Iain.N.P., D.N.P. 01/15/24 1210 [employer]ER FIELD SALES documented in this encounter Plan of Treatment Upcoming Encounters Date Type Department Care Team (Latest Contact Info) Description 03/17/2024 7:20 AM CDT Appointment Department of Laboratory Medicine in [address] [phone] Angelica Hutchins M.D. [address] [place] [phone] 03/24/2024 7:10 AM CDT Appointment Department of Laboratory Medicine in [address] [phone] Juan Grier APRN, C.N.P., M.S.N. [address] [place] [phone] 03/24/2024 7:20 AM CDT Appointment Department of Laboratory Medicine in [address] [phone] Angelica Hutchins M.D. [address] [place] [phone] 04/07/2024 8:20 AM CDT Appointment Department of Laboratory Medicine in [address] [phone] Angelica Hutchins M.D. [address] [place] [phone] 04/14/2024 8:00 AM CDT Appointment Department of Laboratory Medicine in [address] [phone] Angelica Hutchins M.D. [address] [place] [phone] 04/15/2024 2:00 PM CDT Clinical Communication Virtual Review in [address] [address] 04/17/2024 11:00 AM CDT Office Visit Department of Neurology in [address] [phone] Wang Bass M.D. [address] [place] [phone] 04/22/2024 7:20 AM CDT Appointment Department of Laboratory Medicine in [address] [phone] Angelica Hutchins M.D. [address] [place] [phone] 04/28/2024 7:20 AM CDT Appointment Department of Laboratory Medicine in [address] [phone] Angelica Hutchins M.D. [address] [place] [phone] 04/28/2024 7:40 AM CDT Appointment Department of Laboratory Medicine in [address] [phone] Angelica Hutchins M.D. [address] [place] [phone] 05/05/2024 7:50 AM CDT Appointment Department of Laboratory Medicine in [address] [phone] Angelica Hutchins M.D. [address] [place] [phone] 05/12/2024 7:20 AM CDT Appointment Department of Laboratory Medicine in [address] [phone] Angleica Hutchins M.D. [address] [place] [phone] 05/19/2024 7:20 AM CDT Appointment Department of Laboratory Medicine in [address] [phone] Angelica Hutchins M.D. [address] [place] [phone] 05/26/2024 7:20 AM CDT Appointment Department of Laboratory Medicine in [address] [phone] Angelica Hutchins M.D. [address] [place] [phone] 05/26/2024 7:30 AM CDT Appointment Department of Laboratory Medicine in [address] [phone] Angelica Hutchins M.D. [address] [place] [phone] 06/02/2024 7:20 AM CDT Appointment Department of Laboratory Medicine in [address] [phone] Angelica Hutchins M.D. [address] [place] [phone] 06/30/2024 7:20 AM CDT Appointment Department of Laboratory Medicine in [address] [phone] Angelica Hutchins M.D. [address] [place] [phone] 06/30/2024 7:30 AM CDT Appointment Department of Laboratory Medicine in [address] [phone] Angelica Hutchins M.D. [address] [place] [phone] 07/29/2024 7:20 AM CDT Appointment Department of Laboratory Medicine in [address] [phone] Angelica Hutchins M.D. [address] [place] [phone] 07/29/2024 7:30 AM CDT Appointment Department of Laboratory Medicine in [address] [phone] Angelica Hutchins M.D. [address] [place] [phone] documented as of this encounter Procedures Procedure Name Priority Date/Time Associated Diagnosis Comments DX CHEST AP OR PA AND LATERAL 2 VIEWS RAD - Semiurgent (Fast; most ED patients; some inpatients) 01/15/2024 10:31 AM MANAGER FIELD SALES BACTERIA / PHOEBE CULTURE, BLOOD Routine 01/15/2024 10:28 AM MANAGER FIELD SALES BACTERIA / PHOEBE CULTURE, BLOOD Routine 01/15/2024 10:28 AM MANAGER FIELD SALES URINALYSIS WITH MICROSCOPIC IF INDICATED, U Routine 01/15/2024 9:55 AM MANAGER FIELD SALES HC URINALYSIS AUTO W MICRO Routine 01/15/2024 9:55 AM MANAGER FIELD SALES BACTERIAL CULTURE, AEROBIC + SUSC, URINE Routine 01/15/2024 9:55 AM MANAGER FIELD SALES VBG (VENOUS BLOOD GAS), POCT, B Routine 01/15/2024 9:55 AM MANAGER FIELD SALES CBC WITH DIFFERENTIAL, B Routine 01/15/2024 9:55 AM MANAGER FIELD SALES C-REACTIVE PROTEIN (CRP), S/P Routine 01/15/2024 9:55 AM MANAGER FIELD SALES LACTATE, B/P Routine 01/15/2024 9:55 AM MANAGER FIELD SALES COMPREHENSIVE METABOLIC PANEL, S/P Routine 01/15/2024 9:55 AM MANAGER [employer]ELD SALES documented in this encounter Results * DX Chest AP or PA and Lateral 2 Views (01/15/2024 10:31 AM MANAGER [employer]ELD SALES) Anatomical Region Laterality Modality Chest, Thoracic RST LOS, Tho racic ARZ LOS, Thoracic FLA LOS N/A Digital Radiography Impressions 01/15/2024 10:35 AM MANAGER FIELD SALES No significant change from 08/30/2023. Prominent fat pad at the cardiac apex. Stable small bone island in the anterior left second rib. Old healed right rib fractures. Chest otherwise negative. Narrative 01/15/2024 10:35 AM MANAGER [employer] EXAM: DX CHEST AP OR PA AND LATERAL 2 VIEWS Procedure Note Be Maldonado M.D. - 01/15/2024 EXAM: DX CHEST AP OR PA AND LATERAL 2 VIEWS IMPRESSION: No significant change from 08/30/2023. Prominent fat pad at the cardiacapex. Stable small bone island in the anterior left second rib. Old healedright rib fractures. Chest otherwise negative. Aldo Collier APRN, C.N.P., D.N.P. IMG DIAGNOSTIC IMAGING PROCEDURES * Bacteria / Phoebe Culture, Blood (01/15/2024 10:28 AM MANAGER [employer]) Bacteria/Krista da Culture, Blood No growth after 5 day/s of incubation. 01/20/2024 11:02 AM MANAGER FIELD [employer] CNFL Blood, Peripheral Draw 01/15/2024 10:28 AM MANAGER [employer] 01/15/2024 10:28 AM MANAGER [employer] Aldo Collier APRN, C.N.P., D.N.P. LAB MICROBIOLOGY - [place] [address], [place] [address] * Bacteria / Phoebe Culture, Blood (01/15/2024 10:28 AM MANAGER [employer]) Bacteria/Krista da Culture, Blood No growth after 5 day/s of incubation. 01/20/2024 11:02 AM MANAGER [employer]ELD [employer]ES CNFL Blood, Peripheral Draw 01/15/2024 10:28 AM MANAGER [employer] 01/15/2024 10:28 AM MANAGER [employer] Aldo Collier APRN, C.N.P., D.N.P. LAB MICROBIOLOGY - GENERAL ORDERABLES Performing Organization Address City/State/[facility] [place] [address], [place] [address] * (ABNORMAL) Microscopic Manual (01/15/2024 9:55 AM MANAGER [employer]) White Blood Cells 4-10 /hpf 01/15/2024 10:56 AM MANAGER [employer] CNFL Comment: ----REFERENCE VALUE---- Males: 0-3 Females: 0-10 Unknown: 0-10 Red Blood Cells Occ-2 0 - 2 /hpf 01/15/2024 10:56 AM [employer]GER [employer] CNFL Hyaline Casts 41-50 /lpf 01/15/2024 10:56 AM [employer]NAGER [employer] CNFL Squamous Cells 4-10 /hpf 01/15/2024 10:56 AM [employer]NAGER [employer] CNFL Bacteria Present(A) None Seen 01/15/2024 10:56 AM MANAGER [employer] CNFL Urine 01/15/2024 9:55 AM [employer]GER [employer] 01/15/2024 10:01 AM MANAGER [employer] Iain Schuster APRN.N.P., D.N.P. LAB URINE ORDERABLES Performing Organization Address City/[facility]/[place] [address], [place] [address] * (ABNORMAL) CRP (C-Reactive Protein) (01/15/2024 9:55 AM MANAGER [employer]) C-Reactive Protein (CRP), P 69.3(H) <5.0 mg/L 01/15/2024 10:25 AM MANAGER [employer] CNFL Blood 01/15/2024 9:55 AM [employer]GER [employer] 01/15/2024 10:01 AM MANAGER [employer] Iain Schuster APRN.N.P., D.N.P. LAB BLOOD ADD-ON Performing Organization Address City/[facility]/[place] [address], [facility] [place] [address] * (ABNORMAL) Bacterial Culture, Aerobic + Susceptibility, Urine (01/15/2024 9:55 AM MANAGER [employer]) Urine Culture Mixed microbiota (A) 01/16/2024 10:13 AM MANAGER [employer]ES ECLR Urine, Midstream 01/15/2024 9:55 AM [employer]GER [employer] 01/15/2024 2:31 PM [employer]GER [employer] Aldo Collier APRN, C.N.P., D.N.P. LAB MICROBIOLOGY - GENERAL ORDERABLES [facility] [address] [facility] [address] [place] [address], [facility] ECLR [facility] [place] [address] * (ABNORMAL) Urinalysis with Microscopic if Indicated (01/15/2024 9:55 AM MANAGER [employer]) Source Midstream 01/15/2024 10:57 AM MANAGER [employer] CNFL Clarity Clear Clear 01/15/2024 10:04 AM MANAGER [employer] CNFL Color Yellow 01/15/2024 10:04 AM MANAGER [employer] CNFL Comment: ----REFERENCE VALUE---- Colorless Yellow Danielle Blood Negative Negative 01/15/2024 10:04 AM MANAGER [employer] CNFL Nitrite Negative Negative 01/15/2024 10:04 AM MANAGER [employer] CNFL Leukocyte Esterase Negative Negative 01/15/2024 10:04 AM MANAGER [employer] CNFL Protein 30(A) mg/dL 01/15/2024 10:04 AM MANAGER [employer] CNFL Comment: ----REFERENCE VALUE---- Negative Trace Glucose 100(A) Negative mg/dL 01/15/2024 10:04 AM MANAGER [employer] CNFL Ketones, QI(U) Trace(A) Negative mg/dL 01/15/2024 10:04 AM MANAGER [employer] CNFL Bilirubin Small(A) Negative 01/15/2024 10:04 AM MANAGER [employer] CNFL pH 5.5 5.0 - 8.0 01/15/2024 10:04 AM MANAGER [employer] CNFL Specific [place] 1.020 1.001 - 1.035 01/15/2024 10:04 AM MANAGER [employer] CNFL Urobilinogen 0.2 0.2 - 1.0 mg/dL 01/15/2024 10:04 AM MANAGER [employer] CNFL Urine 01/15/2024 9:55 AM [employer]NAGER [employer] 01/15/2024 10:01 AM MANAGER [employer] Aldo Collier APRN, C.N.P., D.N.P. LAB URINE ORDERABLES [facility] [address] [place] [address], [facility] CNFL [address] [address] * (ABNORMAL) Blood Gas, Venous, POCT, Blood (01/15/2024 9:55 AM MANAGER [employer]) pH, Venous, POCT, B 7.38 7.32 - 7.43 01/15/2024 10:44 AM MANAGER [employer] CNFL pCO2, Venous, POCT, B 29(L) 41 - 51 mm Hg 01/15/2024 10:44 AM MANAGER [employer] CNFL pO2, Venous, POCT, B 57 Not applicable mm Hg 01/15/2024 10:44 AM MANAGER [employer] CNFL HCO3, Venous, POCT, B 17 Not applicable mmol/L 01/15/2024 10:44 AM MANAGER [employer] SAL[employer] CNFL Base Excess, Venous, POCT, B -8 Not applicable mmol/L 01/15/2024 10:44 AM MANAGER [employer] CNFL O2 Saturation, Venous, POCT, B 89 Not applicable % 01/15/2024 10:44 AM MANAGER [employer] CNFL Sample Type, Blood Gas, POCT CATA 01/15/2024 10:44 AM MANAGER [employer] CNFL Blood 01/15/2024 9:55 AM MANAGER [employer] 01/15/2024 10:01 AM MANAGER [employer]ES Marlena Schuster APRNNChris., D.N.P. LAB POCT ORDERABLES - DEVICE [facility] [address] [place] [address], [place] CNFL [address] [address] * Lactate (01/15/2024 9:55 AM MANAGER [employer]) Lactate, P 2.0 0.5 - 2.2 mmol/L 01/15/2024 10:18 AM MANAGER [employer] CNFL Blood 01/15/2024 9:55 AM [employer]NAGER [employer] 01/15/2024 10:01 AM MANAGER [employer] Aldo Collier APRN, C.N.P., D.N.P. LAB BLOOD NON ADD-ON [facility] [address] [place] [address], [facility] CNFL [facility] [place] [address] * (ABNORMAL) Comprehensive Metabolic Panel (01/15/2024 9:55 AM MANAGER [employer]) Potassium, P 4.1 3.6 - 5.2 mmol/L 01/15/2024 10:25 AM MANAGER [employer] CNFL Sodium, P 133(L) 135 - 145 mmol/L 01/15/2024 10:25 AM MANAGER [employer] CNFL Chloride, P 102 98 - 107 mmol/L 01/15/2024 10:25 AM MANAGER [employer] CNFL Bicarbonate, P 22 22 - 29 mmol/L 01/15/2024 10:25 AM MANAGER [employer] CNFL Anion Gap, P 9 7 - 15 01/15/2024 10:25 AM MANAGER [employer] CNFL BUN (Blood Urea Nitrogen), P 15 6 - 21 mg/dL 01/15/2024 10:25 AM MANAGER [employer] CNFL Creatinine 1.08(H) 0.59 - 1.04 mg/dL 01/15/2024 10:25 AM MANAGER [employer] CNFL Estimated GFR (eGFR) 60 >=60 mL/min/BS A 01/15/2024 10:25 AM MANAGER [employer] CNFL Comment: Estimated GFR calculated using the 2020 CKD_EPI creatinine equation. Calcium, Total, P 8.6 8.6 - 10.0 mg/dL 01/15/2024 10:25 AM MANAGER [employer] CNFL Glucose, P 190(H) 70 - 140 mg/dL 01/15/2024 10:25 AM MANAGER [employer] CNFL Protein, Total, P 6.4 6.3 - 7.9 g/dL 01/15/2024 10:25 AM MANAGER [employer] CNFL Albumin, P 3.6 3.5 - 5.0 g/dL 01/15/2024 10:25 AM MANAGER [employer] CNFL Aspartate Aminotransferase (AST), P 19 8 - 43 U/L 01/15/2024 10:25 AM MANAGER [employer] CNFL Alkaline Phosphatase, P 62 35 - 104 U/L 01/15/2024 10:25 AM MANAGER [employer] CNFL Alanine Aminotransferase (ALT), P 15 7 - 45 U/L 01/15/2024 10:25 AM MANAGER [employer] CNFL Bilirubin, Total, P 0.6 0.0 - 1.2 mg/dL 01/15/2024 10:25 AM MANAGER [employer] SAL[employer] CNFL Blood 01/15/2024 9:55 AM MANAGER [employer] 01/15/2024 10:01 AM MANAGER [employer]ES Aldo Collier APRN, C.N.P., D.N.P. LAB BLOOD ADD-ON Performing Organization Address City/State/[facility] Co de Phone Number [facility] [address] [place] [address], [facility] [place] [address] * (ABNORMAL) CBC with Differential, Blood (01/15/2024 9:55 AM MANAGER [employer]) Hemoglobin 10.8(L) 11.6 - 15.0 g/dL 01/15/2024 10:14 AM MANAGER [employer] CNFL Hematocrit 32.2(L) 35.5 - 44.9 % 01/15/2024 10:14 AM MANAGER [employer] CNFL Erythrocytes 3.47(L) 3.92 - 5.13 x10(12)/L 01/15/2024 10:14 AM MANAGER [employer] CNFL MCV 92.8 78.2 - 97.9 fL 01/15/2024 10:14 AM MANAGER [employer] CNFL RBC Distrib Width 13.3 12.2 - 16.1 % 01/15/2024 10:14 AM MANAGER [employer] CNFL Platelet Count 174 157 - 371 x10(9)/L 01/15/2024 10:14 AM MANAGER [employer] CNFL Leukocytes 13.3(H) 3.4 - 9.6 x10(9)/L 01/15/2024 10:14 AM MANAGER [employer] CNFL Neutrophils 11.91(H) 1.56 - 6.45 x10(9)/L 01/15/2024 10:14 AM MANAGER [employer] CNFL Lymphocytes 0.40(L) 0.95 - 3.07 x10(9)/L 01/15/2024 10:14 AM MANAGER [employer] CNFL Monocytes 0.94(H) 0.26 - 0.81 x10(9)/L 01/15/2024 10:14 AM MANAGER [employer] CNFL Eosinophils <0.04 0.03 - 0.48 x10(9)/L 01/15/2024 10:14 AM MANAGER [employer] CNFL Basophils <0.04 0.01 - 0.08 x10(9)/L 01/15/2024 10:14 AM MANAGER [employer] CNFL Blood 01/15/2024 9:55 AM MANAGER [employer]ES 01/15/2024 10:01 AM MANAGER [employer] SALES Aldo Collier APRN C.N.P., D.N.P. 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 See IVAG for administration guidelines., Drug Monitoring Program: Pharmacist to adjust medication dosing based on indication and drug clearance factors., Indications: Lower UTI, Non-Catheter Given 01/15/2024 11:58 AM MANAGER [employer] 2 g documented in this encounter Active and Recently Administered Medications Times are shown in [employer]. Scheduled Medication Order 01/13/2024 01/14/2024 01/15/2024 cefTRIAXone injection 2 g (ROCEPHIN) (COMPLETED) 2 g, intravenous, Once, On 01/15/24 at 1140, For 1 dose, If needed, reconstitute vial per package insert instructions. See IVAG for administration guidelines., Drug Monitoring Program: Pharmacist to adjust medication dosing based on indication and drug clearance factors., Indications: Lower UTI, Non-Catheter 1158 (Given - Provid er: Denise Walker R.N.) documented in this encounter Additional Health Concerns Infection Onset Date Last Indicated Resolved Time Protective Environment 03/08/2023 03/08/2023 Assessment Noted Time PHQ-9 Depression Total Score: 1 11/23/20 19 7:04 PM [employer] documented as of this encounter Care Teams Speech And Language Specialist Relationship Specialty Start Date End Date Elsewhere, Pcp PCP - General Promotion Specialist 11/24/[address] [address] Laboratory Medicine 09/18/20 documented as of this encounter
--- OUTSIDE RECORDS SUMMARY | 2024-03-12 05:57 | XMS_ITS | Encounter Summary ---
Author Name Unknown Organization [facility] Address [address] [place] [address] Care Team Providers Care Egyptologist Name Role Phone Elsewhere, Pcp Primary Care Provider Unavailabl e Reason for Referral * Transplant (Routine) - Closed Specialty Diagnoses / Procedures Referred By Contac t Referred To Contact Transplant Juan Grier APRN, C.NBev, M.S.N. [address] [place] [phone] [facility] Referral ID Status Reason Start Date Expiration Date Visits Re quested Visits Authorized [id number] Closed 01/15/2024 07/16/2025 1 1 ILE GRINDER * Transplant (Routine) - Closed Specialty Diagnoses / Procedures Referred By Contreanna t Referred To Contact Transplant Juan Grier APRN, C.NBev, M.S.N. [address] [place] [phone] [facility] Referral ID Status Reason Start Date Expiration Date Visits Re quested Visits Authorized [id number] Closed 01/15/2024 07/16/2025 1 1 ILE GRINDER * Outpatient (Routine) - Closed Specialty Diagnoses / Procedures Referred By Benedicto t Referred To Contact Diagnoses Transplant Renal (HCC) Procedures US Kidney Transplant Biopsy Left Juan Grier APRN, C.N.P., M.S.N. [address] [place] [address] [facility] Referral ID Status Reason Start Date Expiration Date Visits Re quested Visits Authorized [id number] Closed 01/15/2024 01/14/2025 1 1 ILE GRINDER Encounter Details Date Type Department Care Team (Late st Contact Info) Description 01/15/2024 Orders Only [facility] [place], [place] [address] [place] [phone] Juan Grier APRN, C.N.P., M.S.N. [address] [place] [phone] Illness Febrile (Primary Dx); Transplant Renal (HCC) Social History Tobacco Use Types Packs/Day [...] How often do you attend chur or quaker services? 1 to 4 times per year 02/13/2023 Do you belong to any clubs o r organizations such as islam groups, unions, fraternal or athletic groups, or [...] Answer Date Recorded PHQ-2 Score 0 09/10/2023 [facility] - Occupational [...] Sex Assigned at Female 11/13/2018 9:36 AM PROFILE GRINDER Gender Identity Female 11/13/2018 9:36 AM PROFILE GRINDER Sexual Orientation Straight 11/13/2018 9: 36 AM PROFILE GRINDER documented as of this encounter Plan of Treatment Upcoming Encounters Date Type Department Care Team (Latest Contact Info) Description 03/17/2024 7:20 AM CDT Appointment Department of Laboratory Medicine in [place] [phone] Angelica Hutchins M.D. [address] [place] [phone] 03/24/2024 7:10 AM CDT Appointment Department of Laboratory Medicine in [address] [phone] Juan Grier, STUART, C.N.P., M.S.N. [address] [place] [phone] 03/24/2024 7:20 AM CDT Appointment Department of Laboratory Medicine in [address] [phone] Angelica Hutchins M.D. [address] [place] [phone] 04/07/2024 8:20 AM CDT Appointment Department of Laboratory Medicine in [address] [phone] Angelica Hutchins M.D. [address] [place] [phone] 04/14/2024 8:00 AM CDT Appointment Department of Laboratory Medicine in [address] [phone] Angelica Hutchins M.D. [address] [place] [phone] 04/15/2024 2:00 PM CDT Clinical Communication Virtual Review in [place], [place] 200 [place] [address] 04/17/2024 11:00 AM CDT Office Visit Department of Neurology in [address] [phone] Wang Bass M.D. [address] [place] [phone] 04/22/2024 7:20 AM CDT Appointment Department of Laboratory Medicine in [address] [phone] Angelica Hutchins M.D. [address] [place] [phone] 04/28/2024 7:20 AM CDT Appointment Department of Laboratory Medicine in [address] [phone] Angelica Hutchins M.D. [address] [place] [phone] 04/28/2024 7:40 AM CDT Appointment Department of Laboratory Medicine in [address] [phone] Angelica Hutchins M.D. [address] [place] [phone] 05/05/2024 7:50 AM CDT Appointment Department of Laboratory Medicine in [address] [phone] Angelica Hutchins M.D. [address] [place] [phone] 05/12/2024 7:20 AM CDT Appointment Department of Laboratory Medicine in [address] [phone] Angelica Hutchins M.D. [address] [place] [phone] 05/19/2024 7:20 AM CDT Appointment Department of Laboratory Medicine in [address] [phone] Angelica Hutchins M.D. [address] [place] [phone] 05/26/2024 7:20 AM CDT Appointment Department of Laboratory Medicine in [address] [phone] Angelica Hutchins M.D. [address] [place] [phone] 05/26/2024 7:30 AM CDT Appointment Department of Laboratory Medicine in [address] [phone] Angelica Hutchins M.D. [address] [place] [phone] 06/02/2024 7:20 AM CDT Appointment Department of Laboratory Medicine in [address] [phone] Angelica Hutchins M.D. [address] [place] [phone] 06/30/2024 7:20 AM CDT Appointment Department of Laboratory Medicine in [address] [phone] Angelica Hutchins M.D. [address] [place] [phone] 06/30/2024 7:30 AM CDT Appointment Department of Laboratory Medicine in [address] [phone] Angelica Hutchins M.D. [address] [place] [phone] 07/29/2024 7:20 AM CDT Appointment Department of Laboratory Medicine in [address] [phone] Angelica Hutchins M.D. [address] [place] [phone] 07/29/2024 7:30 AM CDT Appointment Department of Laboratory Medicine in [address] [phone] Angelica Hutchins M.D. [address] [place] [phone] Scheduled Referrals Name Type Priority Associated Diagnoses Order Schedule Transplant Kidney / pancreas office visit (clinic) General Outpatient Referral Routine Expected: 01/30/2024, Expires: 04/14/2025 Transplant Kidney / pancreas office visit (clinic) General Outpatient Referral Routine Expected: 01/29/2024, Expires: 04/14/2025 documented as of this encounter Results * US Kidney Transplant [...] APRN, C.N.P., M.S.N. IMG US PROCEDURES * Bacterial Culture, Aerobic + Susceptibility, Urine (02/08/2024 6:58 AM CDT) Urine Culture Urogenital microbiota, susceptibilities not performed per laboratory criteria. 02/09/2024 8:28 AM CDT DTL Urine (Urine, Midstream) 02/08/2024 6:58 AM CDT 02/08/2024 9:48 AM CDT Comment:Specimen Source Site : Urine Juan Grier APRN, C.N.P., M.S.N. LAB MICROBIOLOGY - GENERAL ORDERABLES Performing Organization Address City/[facility]/ZIP Co de Phone Number [facility] [address] [place], [place] [id number] [place] [address] 200 [place] [address] * Urinalysis, with Microscopic: Urine, Midstream (02/08/2024 6:58 AM CDT) Source Urine, Urine, Midstream 02/08/2024 7:05 AM CDT DTL Color, U Yellow 02/08/2024 7:05 AM CDT DTL Clarity, U Clear 02/08/2024 7:05 AM CDT DTL Protein, U 9 <26 mg/dL 02/08/2024 7:55 AM CDT DTL Protein/Osmol ality 0.28 <0.42 ratio 02/08/2024 7:55 AM CDT DTL Predicted 24 HR Protein, U 212 <229 mg/24 h 02/08/2024 7:55 AM CDT DTL Predicted Range 52-858 mg/24 h 02/08/2024 7:55 AM CDT DTL Comment Micro done on <5 mL 02/08/2024 7:39 AM CDT DTL Urine (Urine, Midstream) 02/08/2024 6:58 AM CDT 02/08/2024 7:05 AM CDT Juan Grier APRN, C.N.P., M.S.N. LAB URINE ORDERABLES Performing Organization Address City/[facility]/ZIP Co de Phone Number [facility] [address] [place] [address], [facility] 200 [place] [address] * Prothrombin Time (PT) (02/08/2024 6:52 AM CDT) Prothrombin Time, P 10.3 9.4 - 12.5 sec 02/08/2024 7:54 AM CDT DTL INR 0.9 0.9 - 1.1 02/08/2024 7:54 AM CDT DTL Comment: ----ADDITIONAL INFORMATION---- Standard intensity warfarin therapeutic range: 2.0 to 3.0 ?? High intensity warfarin therapeutic range: 2.5 to 3.5 Blood (Blood, Venous) 02/08/2024 6:52 AM CDT 02/08/2024 7:25 AM CDT Marlena Stewart APRNNChris., M.S.N. LAB BLOOD ADD-ON Performing Organization Address City/[facility] [place] [place] [address] * (ABNORMAL) Magnesium (02/08/2024 6:52 AM CDT) [facility] Magnesium, S 1.4(L) 1.7 - 2.3 mg/dL 02/08/2024 8:01 AM CDT DTL Blood (Blood, Venous) 02/08/2024 6:52 AM CDT 02/08/2024 7:40 AM CDT Iain Stewart APRN.N.P., M.S.N. LAB BLOOD ADD-ON Performing Organization Address City/[facility]/ZIP Co de Phone Number [facility] [address] [place] [address], [place] [address] * Renal Function Panel (02/08/2024 6:52 AM CDT) Pathologist [facility] Potassium, S 3.7 3.6 - 5.2 mmol/L [...] Grier APRN C.N.P., M.S.N. LAB BLOOD ADD-ON [facility] [address] [place] [address], [facility] [address] [place] [address] * (ABNORMAL) CBC with Differential, Blood (02/08/2024 6:52 AM CDT) Hemoglobin 10.7(L) 11.6 - 15.0 g/dL 02/08/2024 7:49 AM CDT DTL Hematocrit 32.1(L) 35.5 - 44.9 % 02/08/2024 7:49 AM CDT DTL Erythrocytes 3.53(L) 3.92 - 5.13 x10(12)/L 02/08/2024 7:49 AM CDT DTL MCV 90.9 78.2 - 97.9 fL 02/08/2024 7:49 AM CDT DTL RBC Distrib Width 13.4 12.2 - 16.1 % 02/08/2024 7:49 AM CDT DTL Platelet Count 250 157 - 371 x10(9)/L 02/08/2024 7:49 AM CDT DTL Leukocytes 8.0 3.4 - 9.6 x10(9)/L 02/08/2024 7:49 AM CDT DTL Neutrophils 6.60(H) 1.56 - 6.45 x10(9)/L 02/08/2024 7:49 AM CDT DHPM Lymphocytes 0.69(L) 0.95 - 3.07 x10(9)/L 02/08/2024 7:49 AM CDT DTL Monocytes 0.53 0.26 - 0.81 x10(9)/L 02/08/2024 7:49 AM CDT DTL Eosinophils 0.10 0.03 - 0.48 x10(9)/L 02/08/2024 7:49 AM CDT DTL Basophils 0.04 0.01 - 0.08 x10(9)/L 02/08/2024 7:49 AM CDT DTL Blood (Blood, Venous) 02/08/2024 6:52 AM CDT 02/08/2024 7:27 AM CDT Juan Grier APRN C.N.P., M.S.N. LAB BLOOD ADD-ON [facility] [address] [place] [address], [facility] DTL [facility] [address] [place] [address] DHPM [facility] [address] [place] [address] * (ABNORMAL) BKV DNA Detect/Quant (02/08/2024 6:51 AM CDT) BKV DNA Detect/Quant, P 116(A) Undetected IU/mL 02/09/2024 11:16 AM CDT [facility] Comment: Result in log IU/mL is 2.06. ----ADDITIONAL INFORMATION---- The quantification range of this assay is 22 to 100,000,000 IU/mL (1.34 log to 8.00 log IU/mL). Testing was performed using the chari BKV test ([employer] Blood (Blood, Venous) 02/08/2024 6:51 AM CDT 02/08/2024 9:19 AM CDT Juan Grier APRN, C.N.P., M.S.N. LAB MICROBIOLOGY - BLOOD ORDERABLES [facility] [address] [place] [address] [facility] [address] JUAREZ [address] [place] [address] [place] [address] * Tacrolimus, Trough (02/08/2024 6:48 AM CDT) Pathologist [facility] Tacrolimus, Trough 8.9 5.0-15.0 (Trough) ng/mL 02/08/2024 12:58 PM CDT [facility] Comment: ----ADDITIONAL INFORMATION---- Target steady-state trough concentrations vary depending on the type of transplant, concomitant immunosuppression, clinical/institutional protocols, and time post-transplant. Results should be interpreted in conjunction with this clinical information and any physical signs/symptoms of rejection/toxicity. Testing performed by Liquid Chromatography-Tandem Mass Spectrometry (LC-MS/MS). This test was developed and its performance characteristics determined by [facility] in a manner consistent with CLIA requirements. This test has not been cleared or approved by the U.S. Food and Drug Administration. Blood (Blood, Venous) 02/08/2024 6:48 AM CDT 02/08/2024 9:22 AM CDT Srini Stewart APRN.P., M.S.N. LAB BLOOD NON ADD-ON Performing Organization Address City/[facility]/ZIP Co de Phone Number [facility] [address] [place] [address] [facility] [address] JUAREZ [address] [place] [address] * CMV DNA Detect / Quant, Plasma (01/18/2024 8:13 AM PROFILE GRINDER) CMV DNA Detect/Quant, P Undetected Undetected IU/mL 01/18/2024 2:14 PM PROFILE GRINDER [facility] Comment: Result in log IU/mL is Undetected. ----ADDITIONAL INFORMATION---- The quantification range of this assay is 35 to 10,000,000 IU/mL (1.54 log to 7.00 log IU/mL). Testing was performed using the chari CMV test ([employer] Blood (Blood, Venous) 01/18/2024 8:13 AM PROFILE GRINDER 01/18/2024 10:17 AM PROFILE GRINDER Juan Grier APRN, C.N.P., M.S.N. LAB MICROBIOLOGY - BLOOD ORDERABLES Performing Organization Address [facility] Co de Phone Number [facility] [address] [place] [address] [facility] [address] [place]ARE[place] [address] [place] [address] documented in this encounter Visit Diagnoses Diagnosis Illness Febrile- Primary Transplant Renal (HCC) Transplant Renal (HCC) documented in this encounter Additional Health Concerns Infection Onset Date Last Indicated Resolved Time Protective Environment 03/08/2023 03/08/2023 Assessment Noted Time PHQ-9 Depression Total Score: 1 11/23/20 19 7:04 PM PROFILE GRINDER documented as of this encounter Care Teams Egyptologist Relationship Specialty Start Date End Date Elsewhere, Pcp PCP - General Property Disposal Officer 11/24/[address] [address] Laboratory Medicine 09/18/20 documented as of this encounter
--- OUTSIDE RECORDS SUMMARY | 2024-03-12 05:57 | XMS_ITS | Encounter Summary ---
Author Name Unknown Organization [facility] Address [address] [place] [address] Care Team Providers Care Senior Research Project Manager Name Role Phone Elsewhere, Pcp Primary Care Provider Unavailabl e Reason for Visit * Reason Comments Med Refill Encounter Details Date Type Department Care Team (Late st Contact Info) Description 01/17/2024 Refill Joon millan [facility] in [place], [place] [address] [place] [address] Charu Alicea, R.N. Med Refill Social History [...] How often do you attend chur or anabaptist services? 1 to 4 times per year 02/13/2023 Do you belong to any clubs o r organizations such as mosque groups, unions, fraternal or athletic groups, or [...] Answer Date Recorded PHQ-2 Score 0 09/10/2023 [facility] - [...] Sex Assigned at Female 11/13/2018 9:36 AM STRATEGIC MANAGER Gender Identity Female 11/13/2018 9:36 AM STRATEGIC MANAGER Sexual Orientation Straight 11/13/2018 9: 36 AM STRATEGIC MANAGER documented as of this encounter Plan of Treatment Upcoming Encounters Date Type Department Care Team (Latest Contact Info) Description 03/17/2024 7:20 AM CDT Appointment Department of Laboratory Medicine in [address] [phone] Angelica Hutchins M.D. [address] [place] [phone] 03/24/2024 7:10 AM CDT Appointment Department of Laboratory Medicine in [address] [phone] Juan Grier APRN, C.N.P., M.S.N. [address] [place] [phone] 03/24/2024 7:20 AM CDT Appointment Department of Laboratory Medicine in [address] [phone] Angelica Hutchins M.D. [address] [place] [phone] 04/07/2024 8:20 AM CDT Appointment Department of Laboratory Medicine in [address] [phone] Angelica Hutchins M.D. [address] [place] [phone] 04/14/2024 8:00 AM CDT Appointment Department of Laboratory Medicine in [address] [phone] Angelica Hutchins M.D. [address] [place] [phone] 04/15/2024 2:00 PM CDT Clinical Communication Virtual Review in [address] [address] 04/17/2024 11:00 AM CDT Office Visit Department of Neurology in [place], [place] [address] [place] [phone] Wang Bass M.D. [address] [place] [phone] 04/22/2024 7:20 AM CDT Appointment Department of Laboratory Medicine in [address] [phone] Angelica Hutchins M.D. [address] [place] [phone] 04/28/2024 7:20 AM CDT Appointment Department of Laboratory Medicine in [address] [phone] Angelica Hutchins M.D. [address] [place] [phone] 04/28/2024 7:40 AM CDT Appointment Department of Laboratory Medicine in [address] [phone] Angelica Hutchins M.D. [address] [place] [phone] 05/05/2024 7:50 AM CDT Appointment Department of Laboratory Medicine in [address] [phone] Angelica Hutchins M.D. [address] [place] [phone] 05/12/2024 7:20 AM CDT Appointment Department of Laboratory Medicine in [address] [phone] Angelica Hutchins M.D. [address] [place] [phone] 05/19/2024 7:20 AM CDT Appointment Department of Laboratory Medicine in [address] [phone] Angelica Hutchins M.D. [address] [place] [phone] 05/26/2024 7:20 AM CDT Appointment Department of Laboratory Medicine in [address] [phone] Angelica Hutchins M.D. [address] [place] [phone] 05/26/2024 7:30 AM CDT Appointment Department of Laboratory Medicine in [address] [address] Angelica Hutchins M.D. [address] [place] [phone] 06/02/2024 7:20 AM CDT Appointment Department of Laboratory Medicine in [address] [phone] Angelica Hutchins M.D. [address] [place] [phone] 06/30/2024 7:20 AM CDT Appointment Department of Laboratory Medicine in [address] [phone] Angelica Hutchins M.D. [address] [place] [phone] 06/30/2024 7:30 AM CDT Appointment Department of Laboratory Medicine in [address] [phone] Angelica Hutchins M.D. [address] [place] [phone] 07/29/2024 7:20 AM CDT Appointment Department of Laboratory Medicine in [address] [phone] Angelica Hutchins M.D. [address] [place] [phone] 07/29/2024 7:30 AM CDT Appointment Department of Laboratory Medicine in [address] [phone] Angelica Hutchins M.D. [address] [place] [phone] documented as of this encounter Visit Diagnoses Not on filedocumented in this encounter Additional Health Concerns Infection Onset Date Last Indicated Resolved Time Protective Environment 03/08/2023 03/08/2023 Assessment Noted Time PHQ-9 Depression Total Score: 1 11/23/20 19 7:04 PM STRATEGIC MANAGER documented as of this encounter Care Teams Senior Research Project Manager Relationship Specialty Start Date End Date Elsewhere, Pcp PCP - General Automatic Nailing Machine Operator 11/24/[address] [address] Laboratory Medicine 09/18/20 documented as of this encounter
--- OUTSIDE RECORDS SUMMARY | 2024-03-12 05:57 | XMS_ITS | Encounter Summary ---
Author Name Unknown Organization [facility] Address [address] [place] [address] Care Team Providers Care Sheep Clipper Name Role Phone Elsewhere, Pcp Primary Care Provider Unavailabl e Encounter Details Date Type Department Care Team (Latest Contact Info) Description 01/15/2024 Clinical Communication [facility]oon [facility] in [place], [place] [address] [place] [address] Cristofer Castillo M.D. [address] [place] [address] Social History Tobacco Use Types Packs/Day Years [...] often do you attend chur ch or baptism services? 1 to 4 times per year [...] place to sleep or slept in a correction (including now)? No 02/13/2023 Depression Answer Date [...] Sex Assigned at Female 11/13/2018 9:36 AM PROGRAM ELIGIBILITY SPECIALIST Gender Identity Female 11/13/2018 9:36 AM PROGRAM ELIGIBILITY SPECIALIST Sexual Orientation Straight 11/13/2018 9: 36 AM PROGRAM ELIGIBILITY SPECIALIST documented as of this encounter Plan of Treatment Upcoming Encounters Date Type Department Care Team (Latest Contact Info) Description 03/17/2024 7:20 AM CDT Appointment Department of Laboratory Medicine in [address] [phone] Angelica Hutchins M.D. [address] [place] [phone] 03/24/2024 7:10 AM CDT Appointment Department of Laboratory Medicine in [address] [phone] Juan Grier, STUART, C.N.P., M.S.N. [address] [place] [phone] 03/24/2024 7:20 AM CDT Appointment Department of Laboratory Medicine in [address] [phone] Angelica Hutchins M.D. [address] [place] [phone] 04/07/2024 8:20 AM CDT Appointment Department of Laboratory Medicine in [address] [phone] Angelica Hutchins M.D. [address] [place] [phone] 04/14/2024 8:00 AM CDT Appointment Department of Laboratory Medicine in [address] [phone] Angelica Hutchins M.D. [address] [place] [phone] 04/15/2024 2:00 PM CDT Clinical Communication Virtual Review in [address] [address] 04/17/2024 11:00 AM CDT Office Visit Department of Neurology in [place], [place] [address] [place] [phone] Wang Bass M.D. [address] [place] [phone] 04/22/2024 7:20 AM CDT Appointment Department of Laboratory Medicine in [address] [phone] Angelica Hutchins M.D. [address] [place] [phone] 04/28/2024 7:20 AM CDT Appointment Department of Laboratory Medicine in [address] [phone] Angelcia Hutchins M.D. [address] [place] [phone] 04/28/2024 7:40 AM CDT Appointment Department of Laboratory Medicine in [address] [address] Angelica Hutchins M.D. [address] [place] [phone] 05/05/2024 7:50 AM CDT Appointment Department of Laboratory Medicine in [address] [phone] Angelica Hutchins M.D. [address] [place] [phone] 05/12/2024 7:20 AM CDT Appointment Department of Laboratory Medicine in [address] [address] Angelica Hutchins M.D. [address] [place] [phone] 05/19/2024 7:20 AM CDT Appointment Department of Laboratory Medicine in [address] [address] Angelica Hutchins M.D. [address] [place] [phone] 05/26/2024 7:20 AM CDT Appointment Department of Laboratory Medicine in [address] [address] Angelica Hutchins M.D. [address] [place] [phone] 05/26/2024 7:30 AM CDT Appointment Department of Laboratory Medicine in [address] [address] Angelica Hutchins M.D. [address] [place] [phone] 06/02/2024 7:20 AM CDT Appointment Department of Laboratory Medicine in [address] [phone] Angelica Hutchins M.D. [address] [place] [phone] 06/30/2024 7:20 AM CDT Appointment Department of Laboratory Medicine in [address] [address] Angelica Hutchins M.D. [address] [place] [phone] 06/30/2024 7:30 AM CDT Appointment Department of Laboratory Medicine in [address] [address] Angelica Hutchins M.D. [address] [place] [phone] 07/29/2024 7:20 AM CDT Appointment Department of Laboratory Medicine in [address] [address] Angelica Hutchins M.D. [address] [place] [phone] 07/29/2024 7:30 AM CDT Appointment Department of Laboratory Medicine in [address] [phone] Angelica Hutchins M.D. [address] [place] [phone] documented as of this encounter Visit Diagnoses Not on filedocumented in this encounter Additional Health Concerns Infection Onset Date Last Indicated Resolved Time Protective Environment 03/08/2023 03/08/2023 Assessment Noted Time PHQ-9 Depression Total Score: 1 11/23/20 19 7:04 PM PROGRAM ELIGIBILITY SPECIALIST documented as of this encounter Care Teams Sheep Clipper Relationship Specialty Start Date End Date Elsewhere, Pcp PCP - General Paper Conservator 11/24/[address] [address] Laboratory Medicine 09/18/20 documented as of this encounter
--- OUTSIDE RECORDS SUMMARY | 2024-03-12 05:58 | XMS_ITS | Encounter Summary ---
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 [address] [place] [address] [facility] Referral ID Status Reason Start Date Expiration Date Visits Re quested Visits Authorized [id number] Closed 09/14/2023 09/13/2026 1 1 Encounter Details Date Type Department Care Team (Latest Contact Info) Description 01/14/2024 9:30 AM MACHINE TOOL DESIGNER [facility] in [place], [place] [address] [place] [phone] Kimmy Mike M.D. [address] [place] [phone] Cristofer Castillo M.D. [address] [place] [phone] Illness Febrile (Primary Dx); Transplant Renal (HCC); [...] Answer Date Recorded PHQ-2 Score 0 09/10/2023 [facility] - Occupational Stress Questionnaire Answer Date [...] place to sleep or slept in a fci (including now)? No 02/13/2023 Depression Answer Date [...] Sex Assigned at Female 11/13/2018 9:36 AM MACHINE TOOL DESIGNER Gender Identity Female 11/13/2018 9:36 AM MACHINE TOOL DESIGNER Sexual Orientation Straight 11/13/2018 9: 36 AM MACHINE TOOL DESIGNER documented as of this encounter Last Filed Vital Signs Vital Sign Reading Time Taken Comments Blood Pressure 135/80 01/14/2024 9:34 AM MACHINE TOOL DESIGNER Pulse 90 01/14/2024 9:34 AM MACHINE TOOL DESIGNER Temperature 38.4 ??C (101.2 ??F) 01/14/2024 9:[address] Respiratory Rate - - Oxygen Saturation - - Inhaled Oxygen Concentration - - Weight 72.2 kg (159 lb 2.8 oz) 01/14/2024 9:34 A M MACHINE TOOL DESIGNER Height 157.5 cm (5' 2.01) 01/14/2024 9:34 AM CS T Body Mass Index 29.11 01/14/2024 9:34 AM MACHINE TOOL DESIGNER documented in this encounter Progress Notes * Juan Grier APRN, C.N.P., M.S.N. - 01/14/2024 9:30 AM CST Kidney-Pancreas 4 month Transplant Evaluation: SUBJECTIVE Holley Santos is a 59 y.o. female who presents for a 4 month post- transplant follow-up. TRANSPLANT HISTORY: ESRD Cause: Lupus nephritis Date [...] positive INTERIM EVENTS: Hospitalization: no ED visit: no Cardiovascular events: no Infections: no Malignancy: no [...] and anemia. Ms. Santos returns today for a four month protocol visit. Since last clinic visit, patient denies hospitalizations, emergency department visits, or infections. Today she reports feeling tired. Shealso reports scratchy throat. She was found to be febrile clinic with temperature of 38.5 ?? C and 39.0?? C when repeated. She denies shortness of breath, cough, dysuria, hematuria, diarrhea, nausea,vomiting, or abdominal pain. Of note patient reported that her daughter tested positive for COVID on Sunday. Patient did complete a home COVID test yesterday that was negative. OBJECTIVE BP 135/80 (BP Location: Right arm, Patient Position: Sitting, Cuff Size: Regular) Pulse 90 Temp(!) 38.4 ??C (Tympanic) Ht 157.5 cm Wt 72.2 kg BMI 29.11 kg/m?? Estimated body mass index is 29.11 kg/m?? as calculated from the following: Height as of this encounter: 157.5 cm. Weight as of this encounter: 72.2 kg. General Appearance: Alert, cooperative, no distress Lungs: Clear to auscultation bilaterally, respirations unlabored Heart: Regular rate and rhythm, S1 and S2 normal, no murmur, rub or gallop Abdomen: Soft, non-tender, bowel sounds active all four quadrants, no masses, no organomegaly. Kidney allograft non tender. 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 BK has been detected at low levels (531 on 12/31) with repeat levels pending today. She remains on cellcept (dose reduced at 500 mg BID), tacrolimus, and prednisone for immunosuppression. SABs are pending today. Patient is schedule for her four month protocol biopsy. She is not on anticoagulation. However, given patient's fever we will postpone her biopsy and complete an infectious work-up. #4 Infectious Disease prophylaxis CMV: D+/ R-, EBV D+/R+ #5 CMV mismatch #6 history of sulfa severe anaphylaxis with shortness of breath Patient remains on Valcyte and pentamidine #7 Fever Patient reports general fatigue and scratchy throat as her only symptoms. She also reports COVID exposure. Plan; -respiratory pathogen panel and Group A streptococcus swab. I -blood and urine cultures -I have recommended hydration and tylenol for now. She knows to seek emergency care if she developsSOB or unable to keep fluids and/or meds down. #8 Cardiovascular health #9 HTN 135/80 with HR of 90 Troponin: 12 Lipid profile: Total cholesterol 144, LDL 55, triglyceride 297 #10 Hx of multiple sclerosis #11 Hx of basal cell carcinoma Patient continues with close follow up with Dermatology and was last seen last month. #12 Osteonecrosis status post bilateral knee and hip replacements and right ankle fusion October 2021 Bone density scan obtained on 09/12/2023 was normal Ca: 8.9 Phos: 2.0 Vitamin D: pending #13 Hypomagnesemia on supplement #14 Hypophosphatemia #15 Hypokalemia Patient remains on potassium chloride 20 mEq daily. Her potassium is 3.9. I have asked her to hold her potassium chloride and will follow up on her levels with her next lab draw in 2 weeks. If she becomes hypokalemic we will consider potassium phosphate supplement to help with both phosphorus and potassium level. #16 Follow-up Reschedule 4 month visit in 2-4 weeks depending on infectious work-up INE TOOL DESIGNER documented in this encounter Plan of Treatment Upcoming Encounters Date Type Department Care Team (Latest Contact Info) Description 03/17/2024 7:20 AM CDT Appointment Department of Laboratory Medicine in [address] [phone] Angelica Hutchins M.D. [address] [place] [phone] 03/24/2024 7:10 AM CDT Appointment Department of Laboratory Medicine in [address] [phone] Juan Grier APRN, C.NChris., M.S.N. [address] [place] [phone] 03/24/2024 7:20 AM CDT Appointment Department of Laboratory Medicine in [address] [phone] Angelica Hutchins M.D. [address] [place] [phone] 04/07/2024 8:20 AM CDT Appointment Department of Laboratory Medicine in [address] [address] Angelica Hutchins M.D. [address] [place] [phone] 04/14/2024 8:00 AM CDT Appointment Department of Laboratory Medicine in [address] [phone] Angelica Hutchins M.D. [address] [place] [phone] 04/15/2024 2:00 PM CDT Clinical Communication Virtual Review in [place], [place] 200 [place] [address] 04/17/2024 11:00 AM CDT Office Visit Department of Neurology in [address] [phone] Wang Bass M.D. [address] [place] [phone] 04/22/2024 7:20 AM CDT Appointment Department of Laboratory Medicine in [address] [phone] Angelica Hutchins M.D. [address] [place] [phone] 04/28/2024 7:20 AM CDT Appointment Department of Laboratory Medicine in [address] [phone] Angelica Hutchins M.D. [address] [place] [phone] 04/28/2024 7:40 AM CDT Appointment Department of Laboratory Medicine in [address] [phone] Angelica Hutchins M.D. [address] [place] [phone] 05/05/2024 7:50 AM CDT Appointment Department of Laboratory Medicine in [address] [phone] Angelica Hutchins M.D. [address] [place] [phone] 05/12/2024 7:20 AM CDT Appointment Department of Laboratory Medicine in [address] [phone] Angelica Hutchins M.D. [address] [place] [phone] 05/19/2024 7:20 AM CDT Appointment Department of Laboratory Medicine in [address] [phone] Angelica Hutchins M.D. [address] [place] [phone] 05/26/2024 7:20 AM CDT Appointment Department of Laboratory Medicine in [address] [phone] Angelica Hutchins M.D. [address] [place] [phone] 05/26/2024 7:30 AM CDT Appointment Department of Laboratory Medicine in [address] [phone] Angelica Hutchins M.D. [address] [place] [phone] 06/02/2024 7:20 AM CDT Appointment Department of Laboratory Medicine in [address] [address] Angelica Hutchins M.D. [address] [place] [phone] 06/30/2024 7:20 AM CDT Appointment Department of Laboratory Medicine in [address] [phone] Angelica Hutchins M.D. [address] [place] [phone] 06/30/2024 7:30 AM CDT Appointment Department of Laboratory Medicine in [address] [phone] Angelica Hutchins M.D. [address] [place] [phone] 07/29/2024 7:20 AM CDT Appointment Department of Laboratory Medicine in [address] [phone] Angelica Hutchins M.D. [address] [place] [phone] 07/29/2024 7:30 AM CDT Appointment Department of Laboratory Medicine in [address] [phone] Angelica Hutchins M.D. [address] [place] [phone] documented as of this encounter Procedures Procedure Name Priority Date/Time Associated Diagnosis Comments RESPIRATORY PANEL, PCR, DIRECTOR CLIENT SERVICES Routine 01/14/2024 11:25 AM MACHINE TOOL DESIGNER Transplant Renal (HCC) Illness Febrile GROUP A STREP PCR, THROAT Routine 01/14/2024 11:24 AM MACHINE TOOL DESIGNER Transplant Renal (HCC) Illness Febrile documented in this encounter Results * Bacteria / Phoebe Culture, Blood #2 (01/14/2024 11:25 AM MACHINE TOOL DESIGNER) Pathologist [facility] [place] Bacteria/Krista da Culture, Blood No growth after 5 days of incubation. 01/19/2024 12:02 PM MACHINE TOOL DESIGNER DTL Blood (Blood, Peripheral Draw) 01/14/2024 11:25 AM MACHINE TOOL DESIGNER 01/14/2024 11:54 AM MACHINE TOOL DESIGNER Comment:Specimen Source Site : Blood Juan Grier APRN C.N.P., M.S.N. LAB MICROBIOLOGY - GENERAL ORDERABLES [facility] [address] [place] [address], [facility] [address] [place] [address] * Respiratory Panel, PCR, Nasopharyngeal (01/14/2024 11:25 AM MACHINE TOOL DESIGNER) Pathologist [facility] [place] Specimen Source NASOPHARYNGEAL SWAB 01/14/2024 2:12 PM MACHINE TOOL DESIGNER DTL Adenovirus Undetected Undetected 01/14/2024 2:12 PM MACHINE TOOL DESIGNER DTL Coronavirus 229E Undetected Undetected 01/14/20 2:12 PM MACHINE TOOL DESIGNER DTL Coronavirus HKU1 Undetected Undetected 01/14/20 2:12 PM MACHINE TOOL DESIGNER DTL Coronavirus NL63 Undetected Undetected 01/14/20 2:12 PM MACHINE TOOL DESIGNER DTL Coronavirus OC43 Undetected Undetected 01/14/20 2:12 PM MACHINE TOOL DESIGNER DTL SARS Coronavirus-2 Undetected Undetected 01/14/2024 2:12 PM MACHINE TOOL DESIGNER DTL Comment: SARS-CoV-2 RNA absent. This result does not rule out COVID-19 in the patient, as the sensitivity of the test depends on the timing of the specimen collection and the quality of the specimen. Result should be correlated with patient's history and clinical presentation. Human Metapneumovirus Undetected Undetected 01/14/2024 2:12 PM MACHINE TOOL DESIGNER DTL Human Rhinovirus/ Enterovirus Undetected Undetected 01/14/2024 2:12 PM MACHINE TOOL DESIGNER DTL Influenza A Undetected Undetected 01/14/2024 2:12 PM MACHINE TOOL DESIGNER DTL Influenza B Undetected Undetected 01/14/2024 2:12 PM MACHINE TOOL DESIGNER DTL Parainfluenza Virus 1 Undetected Undetected 01/14/2024 2:12 PM MACHINE TOOL DESIGNER DTL Parainfluenza Virus 2 Undetected Undetected 01/14/2024 2:12 PM MACHINE TOOL DESIGNER DTL Parainfluenza Virus 3 Undetected Undetected 01/14/2024 2:12 PM MACHINE TOOL DESIGNER DTL Parainfluenza Virus 4 Undetected Undetected 01/14/2024 2:12 PM MACHINE TOOL DESIGNER DTL Respiratory Syncytial Virus Undetected Undetected 01/14/2024 2:12 PM MACHINE TOOL DESIGNER DTL Bordetella parapertussis Undetected Undetected 01/14/2024 2:12 PM MACHINE TOOL DESIGNER DTL Bordetella pertussis Undetected Undetected 01/14/2024 2:12 PM MACHINE TOOL DESIGNER DTL Chlamydia pneumoniae Undetected Undetected 01/14/2024 2:12 PM MACHINE TOOL DESIGNER DTL Mycoplasma pneumoniae Undetected Undetected 01/14/2024 2:12 PM MACHINE TOOL DESIGNER DTL Interpretation This assay is not predicted to detect SARS-coronavirus (CoV), or MERS-CoV. If SARS-CoV or MERS-CoV is suspected, coordinate testing through a local public health laboratory. 01/14/2024 2:12 PM MACHINE TOOL DESIGNER DTL Comment: ----ADDITIONAL INFORMATION---- This assay is performed using the FDA-Cleared FilmArray Respiratory Panel 2.1 ([employer]). This assay is performed using the FilmArray Respiratory Panel 2.1 ([employer]). For testing performed at [facility] in [place], [place], performance characteristics for samples submitted in phosphate buffered saline were determined by [facility] in a manner consistent with CLIA requirements. Swab (Nasopharynx) 01/14/2024 11:25 AM MACHINE TOOL DESIGNER 01/14/2024 11:25 AM MACHINE TOOL DESIGNER Iain Stewart APRN.N.P., M.S.N. LAB MICROBIOLOGY - GENERAL ORDERABLES [facility] [address] [place] [address], [facility] DTL [address] [facility] [address] [place] [address] * Group A Streptococcus PCR, Throat (01/14/2024 11:24 AM MACHINE TOOL DESIGNER) [facility] Group A Streptococcus PCR, Throat Negative Negative 01/14/2024 2:54 PM MACHINE TOOL DESIGNER DTL Swab (Throat) 01/14/2024 11: 24 AM MACHINE TOOL DESIGNER 01/14/2024 11:24 AM MACHINE TOOL DESIGNER Juan Grier APRN, C.N.P., M.S.N. LAB MICROBIOLOGY - GENERAL ORDERABLES Performing Organization Address City/[facility] Co de Phone Number [facility] [address] [place] [address], [facility] 200 [place] [address] * Bacteria / Phoebe Culture, Blood #1 (01/14/2024 11:06 AM MACHINE TOOL DESIGNER) Pathologist [facility] [place] Bacteria/Krista da Culture, Blood No growth after 5 days of incubation. 01/19/2024 12:02 PM MACHINE TOOL DESIGNER DTL Blood (Blood, Peripheral Draw) 01/14/2024 11:06 AM MACHINE TOOL DESIGNER 01/14/2024 11:55 AM MACHINE TOOL DESIGNER Comment:Specimen Source Site : Blood Juan Grier APRN, C.N.P., M.S.N. 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
--- OUTSIDE RECORDS SUMMARY | 2024-03-12 05:58 | XMS_ITS | Encounter Summary ---
Author Name Unknown Organization [facility] Address [address] [place] [address] Care Team Providers Care Development Professional Name Role Phone Elsewhere, Pcp Primary Care Provider Unavailabl e Encounter Details Date Type Department Care Team (Latest Contact Info) Description 12/31/2023 7:25 AM BATTERY ASSEMBLER PLASTIC - 12/31/2023 11:59 PM BATTERY ASSEMBLER PLASTIC Hospital Encounter Department of Laboratory Medicine in [address] [phone] Angelica Hucthins M.D. [address] [place] [address] Transplant Renal (HCC); High 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; Immunodeficiency [...] any clubs o r organizations such as nondenominational groups, unions, fraternal or athletic groups, or [...] Answer Date Recorded PHQ-2 Score 0 09/10/2023 [facility] [place] [facility] Occupat ional Health - Occupational Stress [...] Sex Assigned at Female 11/13/2018 9:36 AM BATTERY ASSEMBLER PLASTIC Gender Identity Female 11/13/2018 9:36 AM BATTERY ASSEMBLER PLASTIC Sexual Orientation Straight 11/13/2018 9: 36 AM BATTERY ASSEMBLER PLASTIC documented as of this encounter Medications at [...] mouth daily. 100 tablet 2 08/31/2023 08/30/2024 predniSONE (DELTASONE) 5 mg tablet Take 1 [...] with meals. 360 tablet 3 11/07/2023 02/08/2024 furosemide (LASIX) 20 mg tablet Take 1 tablet (20 mg total) by mouth daily for 5 days. 5 tablet 10/22/2023 01/14/2024 magnesium chloride (SLOW-MAG) 71.[address] tablet Take 2 tablets (143 mg total) by mouth every morning before breakfast. Do not crush or chew. 60 tablet 11 09/10/2023 02/08/2024 mycophenolate (CELLCEPT) 250 mg capsule Take 3 capsules (750 mg total) by mouth 2 (two) times a day. Take medication on an empty stomach. Do not break, cut, or open capsules 540 capsule 3 12/27/2023 01/02/2024 pantoprazole (PROTONIX) 40 mg EC tablet Take 1 tablet (40 mg total) by mouth every morning before breakfast. 30 tablet 08/31/2023 01/14/2024 pentamidine (NEBUPENT) 50 mg/mL inhalation solution Inhale [...] a day. 180 capsule 3 11/23/2023 01/29/2024 trimethoprim (TRIMPEX) 100 mg tabletIndications:Prop hylaxis, medical Take 2 tablets (200 mg total) by mouth daily Indications: Prophylaxis, medical. End date 02/28/24 60 tablet 5 09/01/2023 01/14/2024 documented as of this encounter Plan of Treatment Upcoming Encounters Date Type Department Care Team (Latest Contact Info) Description 03/17/2024 7:20 AM CDT Appointment Department of Laboratory Medicine in [address] [phone] Angelica Hutchins M.D. [address] [place] [address] 03/24/2024 7:10 AM CDT Appointment Department of Laboratory Medicine in [address] [phone] Juan Grier APRN, C.N.P., M.S.N. [address] [place] [phone] 03/24/2024 7:20 AM CDT Appointment Department of Laboratory Medicine in [address] [phone] Angelica Hutchins M.D. [address] [place] [phone] 04/07/2024 8:20 AM CDT Appointment Department of Laboratory Medicine in [address] [phone] Angelica Hutchins M.D. [address] [place] [phone] 04/14/2024 8:00 AM CDT Appointment Department of Laboratory Medicine in [address] [phone] Angelica Hutchins M.D. [address] [place] [phone] 04/15/2024 2:00 PM CDT Clinical Communication Virtual Review in [address] [address] 04/17/2024 11:00 AM CDT Office Visit Department of Neurology in [address] [address] Wang Bass M.D. [address] [place] [phone] 04/22/2024 7:20 AM CDT Appointment Department of Laboratory Medicine in [address] [address] Angelica Hutchins M.D. [address] [place] [phone] 04/28/2024 7:20 AM CDT Appointment Department of Laboratory Medicine in [address] [address] Angelica Hutchins M.D. [address] [place] [phone] 04/28/2024 7:40 AM CDT Appointment Department of Laboratory Medicine in [address] [address] Angelica Hutchins M.D. [address] [place] [phone] 05/05/2024 7:50 AM CDT Appointment Department of Laboratory Medicine in [address] [address] Angelica Hutchins M.D. [address] [place] [phone] 05/12/2024 7:20 AM CDT Appointment Department of Laboratory Medicine in [address] [address] Angelica Hutchins M.D. [address] [place] [phone] 05/19/2024 7:20 AM CDT Appointment Department of Laboratory Medicine in [address] [phone] Angelica Hutchins M.D. [address] [place] [phone] 05/26/2024 7:20 AM CDT Appointment Department of Laboratory Medicine in [address] [phone] Angelica Hutchins M.D. [address] [place] [phone] 05/26/2024 7:30 AM CDT Appointment Department of Laboratory Medicine in [address] [phone] Angelica Hutchins M.D. [address] [place] [phone] 06/02/2024 7:20 AM CDT Appointment Department of Laboratory Medicine in [address] [phone] Angelica Hutchins M.D. [address] [place] [phone] 06/30/2024 7:20 AM CDT Appointment Department of Laboratory Medicine in [address] [address] Angelica Hutchins M.D. [address] [place] [phone] 06/30/2024 7:30 AM CDT Appointment Department of Laboratory Medicine in [address] [address] Angelica Hutchins M.D. [address] [place] [phone] 07/29/2024 7:20 AM CDT Appointment Department of Laboratory Medicine in [address] [phone] Angelica Hutchins M.D. [address] [place] [phone] 07/29/2024 7:30 AM CDT Appointment Department of Laboratory Medicine in [address] [phone] Angelica Hutchins M.D. [address] [place] [phone] documented as of this encounter Procedures Procedure Name Priority Date/Time Associated Diagnosis Comments MYCOPHENOLIC ACID, S Routine 12/31/2023 9:41 AM BATTERY ASSEMBLER PLASTIC Transplant Renal (HCC) High 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 Immunodeficiency (HCC) documented in this encounter Results * (ABNORMAL) Mycophenolic Acid (12/31/2023 9:41 AM BATTERY ASSEMBLER PLASTIC) Mycophenolic Acid 5.7(H) 1.0 - 3.5 mcg/mL 01/01/2024 10:50 AM BATTERY ASSEMBLER PLASTIC [facility] MPA Glucuronide 108(H) 35 - 100 mcg/mL 01/01/2024 10:50 AM BATTERY ASSEMBLER PLASTIC [facility] Comment: ----ADDITIONAL INFORMATION---- Target steady-state trough concentrations vary depending on the type of transplant, concomitant immunosuppression, clinical/institutional protocols, and time post-transplant. Results should be interpreted in conjunction with this clinical information and any physical signs/symptoms of rejection/toxicity. Testing performed by Liquid Chromatography-Tandem Mass Spectrometry (LC-MS/MS). This test was developed and its performance characteristics determined by [facility] in a manner consistent with CLIA requirements. This test has not been cleared or approved by the U.S. Food and Drug Administration. Blood (Blood, Venous) 12/31/2023 9:41 AM BATTERY ASSEMBLER PLASTIC 01/01/2024 7:38 AM BATTERY ASSEMBLER PLASTIC Angelica Hutchins M.D. LAB BLOOD NON A DD-ON [facility] [address] [place] [address] [facility] [address] JUARE[place] [address] [place] [address] documented in this encounter Visit Diagnoses Diagnosis Transplant Renal (HCC) High 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 Immunodeficiency (HCC) documented in this encounter Additional Health Concerns Infection Onset Date Last Indicated Resolved Time Protective Environment 03/08/2023 03/08/2023 Assessment Noted Time PHQ-9 Depression Total Score: 1 11/23/20 19 7:04 PM BATTERY ASSEMBLER PLASTIC documented as of this encounter Care Teams Development Professional Relationship Specialty Start Date End Date Elsewhere, Pcp PCP - General Preparation Center Coordinator 11/24/[address] [address] Laboratory Medicine 09/18/20 documented as of this encounter
--- OUTSIDE RECORDS SUMMARY | 2024-03-12 05:58 | XMS_ITS | Encounter Summary ---
Author Name Unknown Organization [facility] Address [address] [place] [address] Care Team Providers Care Mixing Machine Tender Cork Rod Name Role Phone Elsewhere, Pcp Primary Care Provider Unavailabl e Reason for Visit * Reason Comments Med Refill Encounter Details Date Type Department Care Team (Late st Contact Info) Description 01/02/2024 Refill Joon millan [facility] in [place], [place] [address] [place] [phone] Bipin Chen R.N., C.C.T.C. [address] [place] [phone] Med Refill Social History Tobacco Use Types [...] any clubs o r organizations such as zoroastrianism groups, unions, fraternal or athletic groups, or [...] PHQ-2 Score 0 09/10/2023 [facility] - Occupational Stress Questionnaire [...] Sex Assigned at Female 11/13/2018 9:36 AM HOUSEKEEPING ASSISTANT Gender Identity Female 11/13/2018 9:36 AM HOUSEKEEPING ASSISTANT Sexual Orientation Straight 11/13/2018 9: 36 AM HOUSEKEEPING ASSISTANT documented as of this encounter Plan of Treatment Upcoming Encounters Date Type Department Care Team (Latest Contact Info) Description 03/17/2024 7:20 AM CDT Appointment Department of Laboratory Medicine in [address] [phone] Angelica Hutchins M.D. [address] [place] [phone] 03/24/2024 7:10 AM CDT Appointment Department of Laboratory Medicine in [address] [phone] Juan Grier, STUART, C.N.P., M.S.N. [address] [place] [phone] 03/24/2024 7:20 AM CDT Appointment Department of Laboratory Medicine in [address] [phone] Angelica Hutchins M.D. [address] [place] [phone] 04/07/2024 8:20 AM CDT Appointment Department of Laboratory Medicine in [address] [phone] Angelica Hutchins M.D. [address] [place] [phone] 04/14/2024 8:00 AM CDT Appointment Department of Laboratory Medicine in [address] [phone] Angelica Hutchins M.D. [address] [place] [phone] 04/15/2024 2:00 PM CDT Clinical Communication Virtual Review in [address] [address] 04/17/2024 11:00 AM CDT Office Visit Department of Neurology in [place], [place] [address] [place] [phone] Wang Bass M.D. [address] [place] [phone] 04/22/2024 7:20 AM CDT Appointment Department of Laboratory Medicine in [address] [phone] Angelica Hutchins M.D. [address] [place] [phone] 04/28/2024 7:20 AM CDT Appointment Department of Laboratory Medicine in [address] [phone] Angelica Hutchins M.D. [address] [place] [phone] 04/28/2024 7:40 AM CDT Appointment Department of Laboratory Medicine in [address] [phone] Angelica Hutchins M.D. [address] [place] [phone] 05/05/2024 7:50 AM CDT Appointment Department of Laboratory Medicine in [address] [phone] Angelica Hutchins M.D. [address] [place] [phone] 05/12/2024 7:20 AM CDT Appointment Department of Laboratory Medicine in [address] [phone] Angelica Hutchins M.D. [address] [place] [phone] 05/19/2024 7:20 AM CDT Appointment Department of Laboratory Medicine in [address] [address] Angelica Hutchins M.D. [address] [place] [phone] 05/26/2024 7:20 AM CDT Appointment Department of Laboratory Medicine in [address] [phone] Angelica Hutchins M.D. [address] [place] [phone] 05/26/2024 7:30 AM CDT Appointment Department of Laboratory Medicine in [address] [phone] Angelica Hutchins M.D. [address] [place] [phone] 06/02/2024 7:20 AM CDT Appointment Department of Laboratory Medicine in [address] [address] Angelica Hutchins M.D. [address] [place] [phone] 06/30/2024 7:20 AM CDT Appointment Department of Laboratory Medicine in [address] [phone] Angelica Hutchins M.D. [address] [place] [phone] 06/30/2024 7:30 AM CDT Appointment Department of Laboratory Medicine in [address] [address] Angelica Hutchins M.D. [address] [place] [phone] 07/29/2024 7:20 AM CDT Appointment Department of Laboratory Medicine in [address] [phone] Angelica Hutchins M.D. [address] [place] [phone] 07/29/2024 7:30 AM CDT Appointment Department of Laboratory Medicine in [address] [phone] Angelica Hutchins M.D. [address] [place] [phone] documented as of this encounter Visit Diagnoses Not on filedocumented in this encounter Additional Health Concerns Infection Onset Date Last Indicated Resolved Time Protective Environment 03/08/2023 03/08/2023 Assessment Noted Time PHQ-9 Depression Total Score: 1 11/23/20 19 7:04 PM HOUSEKEEPING ASSISTANT documented as of this encounter Care Teams Mixing Machine Tender Cork Rod Relationship Specialty Start Date End Date Elsewhere, Pcp PCP - General Television Antenna Installer 11/24/[address] [address] Laboratory Medicine 09/18/20 documented as of this encounter
--- OUTSIDE RECORDS SUMMARY | 2024-03-12 05:58 | XMS_ITS | Encounter Summary ---
Author Name Unknown Organization [facility] Address [address] [place] [address] Care Team Providers Care Lean Manager Name Role Phone Elsewhere, Pcp Primary Care Provider Unavailabl e Encounter Details Date Type Department Care Team (Latest Contact Info) Description 12/31/2023 7:24 AM [facility] Hospital Encounter Department of Laboratory Medicine in [address] [phone] Angelica Hutchins M.D. [address] [place] [phone] Transplant Renal (HCC); High 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; Immunodeficiency [...] often do you attend chur ch or yazidi services? 1 to 4 times per year [...] Answer Date Recorded PHQ-2 Score 0 09/10/2023 [facility] [place] of Occupat ional Health - Occupational Stress [...] Sex Assigned at Female 11/13/2018 9:36 AM TRAINING DEVELOPMENT MANAGER Gender Identity Female 11/13/2018 9:36 AM TRAINING DEVELOPMENT MANAGER Sexual Orientation Straight 11/13/2018 9: 36 AM TRAINING DEVELOPMENT MANAGER documented as of this encounter Medications [...] CDT Appointment Department of Laboratory Medicine in [address] [phone] Angelica Hutchins M.D. [address] [place] [address] 03/24/2024 7:10 AM CDT Appointment Department of Laboratory Medicine in [address] [phone] Juan Grier, STUART, C.N.P., M.S.N. [address] [place] [phone] 03/24/2024 7:20 AM CDT Appointment Department of Laboratory Medicine in [address] [phone] Angelica Hutchins M.D. [address] [place] [phone] 04/07/2024 8:20 AM CDT Appointment Department of Laboratory Medicine in [address] [phone] Angelica Hutchins M.D. [address] [place] [phone] 04/14/2024 8:00 AM CDT Appointment Department of Laboratory Medicine in [address] [phone] Angleica Hutchins M.D. [address] [place] [phone] 04/15/2024 2:00 PM CDT Clinical Communication Virtual Review in [address] [address] 04/17/2024 11:00 AM CDT Office Visit Department of Neurology in [address] [phone] Wang Bass M.D. [address] [place] [phone] 04/22/2024 7:20 AM CDT Appointment Department of Laboratory Medicine in [address] [address] Angelica Hutchins M.D. [address] [place] [phone] 04/28/2024 7:20 AM CDT Appointment Department of Laboratory Medicine in [address] [address] Angelica Hutchins M.D. [address] [place] [phone] 04/28/2024 7:40 AM CDT Appointment Department of Laboratory Medicine in [address] [phone] Angelica Hutchins M.D. [address] [place] [phone] 05/05/2024 7:50 AM CDT Appointment Department of Laboratory Medicine in [address] [phone] Angelica Hutchins M.D. [address] [place] [phone] 05/12/2024 7:20 AM CDT Appointment Department of Laboratory Medicine in [address] [phone] Angelica Hutchins M.D. [address] [place] [phone] 05/19/2024 7:20 AM CDT Appointment Department of Laboratory Medicine in [address] [phone] Angelica Hutchins M.D. [address] [place] [phone] 05/26/2024 7:20 AM CDT Appointment Department of Laboratory Medicine in [address] [address] Angelica Hutchins M.D. [address] [place] [phone] 05/26/2024 7:30 AM CDT Appointment Department of Laboratory Medicine in [address] [phone] Angelica Hutchins M.D. [address] [place] [phone] 06/02/2024 7:20 AM CDT Appointment Department of Laboratory Medicine in [address] [phone] Angelica Hutchins M.D. [address] [place] [phone] 06/30/2024 7:20 AM CDT Appointment Department of Laboratory Medicine in [address] [address] Angelica Hutchins M.D. [address] [place] [phone] 06/30/2024 7:30 AM CDT Appointment Department of Laboratory Medicine in [address] [phone] Angelica Hutchins M.D. [address] [place] [phone] 07/29/2024 7:20 AM CDT Appointment Department of Laboratory Medicine in [address] [phone] Angelica Hutchins M.D. [address] [place] [phone] 07/29/2024 7:30 AM CDT Appointment Department of Laboratory Medicine in [address] [phone] Angelica Hutchins M.D. [address] [place] [phone] documented as of this encounter Procedures Procedure Name Priority Date/Time Associated Diagnosis Comments MYCOPHENOLIC ACID, S Routine 12/31/2023 8:12 AM TRAINING DEVELOPMENT MANAGER Transplant Renal (HCC) High 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 Immunodeficiency (HCC) documented in this encounter Results * (ABNORMAL) Mycophenolic Acid (12/31/2023 8:12 AM TRAINING DEVELOPMENT MANAGER) Mycophenolic Acid 27.6(H) 1.0 - 3.5 mcg/mL 01/01/2024 1:07 PM TRAINING DEVELOPMENT MANAGER [facility] MPA Glucuronide 79 35 - 100 mcg/mL 01/01/2024 1:07 PM TRAINING DEVELOPMENT MANAGER [facility] Comment: ----ADDITIONAL INFORMATION---- Target steady-state trough concentrations vary depending on the type of transplant, concomitant immunosuppression, clinical/institutional protocols, and time post-transplant. Results should be interpreted in conjunction with this clinical information and any physical signs/symptoms of rejection/toxicity. Testing performed by Liquid Chromatography-Tandem Mass Spectrometry (LC-MS/MS). This test was developed and its performance characteristics determined by [facility] in a manner consistent with CLIA requirements. This test has not been cleared or approved by the U.S. Food and Drug Administration. Blood (Blood, Venous) 12/31/2023 8:12 AM TRAINING DEVELOPMENT MANAGER 01/01/2024 7:38 AM TRAINING DEVELOPMENT MANAGER Angelica Hutchins M.D. LAB BLOOD NON A DD-ON [facility] [address] [place] [address] [facility] [address] [place] [address] [place] [address] documented in this encounter Visit Diagnoses Diagnosis Transplant Renal (HCC) High 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 Immunodeficiency (HCC) documented in this encounter Additional Health Concerns Infection Onset Date Last Indicated Resolved Time Protective Environment 03/08/2023 03/08/2023 Assessment Noted Time PHQ-9 Depression Total Score: 1 11/23/20 19 7:04 PM TRAINING DEVELOPMENT MANAGER documented as of this encounter Care Teams Lean Manager Relationship Specialty Start Date End Date Elsewhere, Pcp PCP - General Curtain Stitcher 11/24/[address] [address] Laboratory Medicine 09/18/20 documented as of this encounter
--- OUTSIDE RECORDS SUMMARY | 2024-03-12 05:58 | XMS_ITS | Encounter Summary ---
Author Name Unknown Organization [facility] Address [address] [place] [address] Care Team Providers Care Athletic Director Name Role Phone Elsewhere, Pcp Primary Care Provider Unavailabl e Reason for Visit * Reason Comments Med Change Request Encounter Details Date Type Department Care Team (Late st Contact Info) Description 2024 Refill Joon Ho [facility] in [place], [place] [address] [place] [phone] Juan Grier, STUART, C.N.P., M.S.N. [address] [place] [phone] Med Change Request Social History Tobacco Use Types Packs/Day Years [...] any clubs o r organizations such as anabaptism groups, unions, fraternal or athletic groups, or [...] Answer Date Recorded PHQ-2 Score 0 09/10/2023 [facility] [place] of Occupat ional Health - Occupational Stress [...] Sex Assigned at Female 11/13/2018 9:36 AM POWER BARKER OPERATOR Gender Identity Female 11/13/2018 9:36 AM POWER BARKER OPERATOR Sexual Orientation Straight 11/13/2018 9: 36 AM POWER BARKER OPERATOR documented as of this encounter Miscellaneous Notes * Telephone Encounter - Anita Gardner, RSravanthiN. - 2024 2:35 PM POWER BARKER OPERATOR Pt to be here next week for evaluation. K level normal on last draw. They will re-address this at that time. R BARKER OPERATOR documented in this encounter Plan of Treatment Upcoming Encounters Date Type Department Care Team (Latest Contact Info) Description 03/17/2024 7:20 AM CDT Appointment Department of Laboratory Medicine in [address] [phone] Angelica Hutchins M.D. [address] [place] [phone] 03/24/2024 7:10 AM CDT Appointment Department of Laboratory Medicine in [address] [phone] Juan Grier, STUART, C.N.P., M.S.N. [address] [place] [phone] 03/24/2024 7:20 AM CDT Appointment Department of Laboratory Medicine in [address] [address] Angelica Hutchins M.D. [address] [place] [phone] 04/07/2024 8:20 AM CDT Appointment Department of Laboratory Medicine in [address] [address] Angelica Hutchins M.D. [address] [place] [phone] 04/14/2024 8:00 AM CDT Appointment Department of Laboratory Medicine in [address] [address] Angelica Hutchins M.D. [address] [place] [phone] 04/15/2024 2:00 PM CDT Clinical Communication Virtual Review in [place], [place] 200 [place] [address] 04/17/2024 11:00 AM CDT Office Visit Department of Neurology in [address] [phone] Wang Bass M.D. [address] [place] [phone] 04/22/2024 7:20 AM CDT Appointment Department of Laboratory Medicine in [address] [address] Angelica Hutchins M.D. [address] [place] [phone] 04/28/2024 7:20 AM CDT Appointment Department of Laboratory Medicine in [address] [phone] Angelica Hutchins M.D. [address] [place] [phone] 04/28/2024 7:40 AM CDT Appointment Department of Laboratory Medicine in [address] [phone] Angelica Hutchins M.D. [address] [place] [phone] 05/05/2024 7:50 AM CDT Appointment Department of Laboratory Medicine in [address] [address] Angelica Hutchins M.D. [address] [place] [phone] 05/12/2024 7:20 AM CDT Appointment Department of Laboratory Medicine in [address] [address] Angelica Hutchins M.D. [address] [place] [phone] 05/19/2024 7:20 AM CDT Appointment Department of Laboratory Medicine in [address] [phone] Angelica Hutchins M.D. [address] [place] [phone] 05/26/2024 7:20 AM CDT Appointment Department of Laboratory Medicine in [address] [address] Angelica Hutchins M.D. [address] [place] [phone] 05/26/2024 7:30 AM CDT Appointment Department of Laboratory Medicine in [address] [phone] Angelica Hutchins M.D. [address] [place] [phone] 06/02/2024 7:20 AM CDT Appointment Department of Laboratory Medicine in [address] [address] Angelica Hutchins M.D. [address] [place] [phone] 06/30/2024 7:20 AM CDT Appointment Department of Laboratory Medicine in [address] [address] Angelica Hutchins M.D. [address] [place] [phone] 06/30/2024 7:30 AM CDT Appointment Department of Laboratory Medicine in [address] [address] Angelica Hutchins M.D. [address] [place] [phone] 07/29/2024 7:20 AM CDT Appointment Department of Laboratory Medicine in [address] [address] Angelica Hutchins M.D. [address] [place] [phone] 07/29/2024 7:30 AM CDT Appointment Department of Laboratory Medicine in [address] [address] Angelica Hutchins M.D. [address] [place] [phone] documented as of this encounter Visit Diagnoses Diagnosis Transplant Renal (HCC) documented in this encounter Additional Health Concerns Infection Onset Date Last Indicated Resolved Time Protective Environment 03/08/2023 03/08/2023 COVID19 Pending 01/14/2024 01/14/2024 01/14/2024 2 :13 PM POWER BARKER OPERATOR Assessment Noted Time PHQ-9 Depression Total Score: 1 11/23/20 7:04 PM POWER BARKER OPERATOR documented as of this encounter Care Teams Athletic Director Relationship Specialty Start Date End Date Elsewhere, Pcp PCP - General Metal Spinner 11/24/19 [place] [id number] Laboratory Medicine 09/18/20 documented as of this encounter
--- OUTSIDE RECORDS SUMMARY | 2024-03-12 05:58 | XMS_ITS | Encounter Summary ---
Author Name Unknown Organization [facility] Address [address] [place] [address] Care Team Providers Care Material Handler 1St Shift Name Role Phone Elsewhere, Pcp Primary Care Provider Unavailabl e Encounter Details Date Type Department Care Team (Latest Contact Info) Description 12/27/2023 Clinical Communication [facility] in [place], [place] [address] [place] [address] Sheryl Betancourt APRN, C.N.P., M.S.N. [address] [place] [address] Social History Tobacco Use Types Packs/Day Years [...] often do you attend chur ch or yazidism services? 1 to 4 times per year 02/13/2023 Do you belong to any clubs o r organizations such as episcopalian groups, unions, fraternal or athletic groups, or [...] Answer Date Recorded PHQ-2 Score 0 09/10/2023 [facility] [place] of Occupat ional Health - Occupational Stress [...] place to sleep or slept in a prison (including now)? No 02/13/2023 Depression Answer Date [...] Sex Assigned at Female 11/13/2018 9:36 AM GREENHOUSE LABORER Gender Identity Female 11/13/2018 9:36 AM GREENHOUSE LABORER Sexual Orientation Straight 11/13/2018 9: 36 AM GREENHOUSE LABORER documented as of this encounter Plan of Treatment Upcoming Encounters Date Type Department Care Team (Latest Contact Info) Description 03/17/2024 7:20 AM CDT Appointment Department of Laboratory Medicine in [address] [phone] Angelica Hutchins M.D. [address] [place] [phone] 03/24/2024 7:10 AM CDT Appointment Department of Laboratory Medicine in [address] [phone] Juan Grier, STUART, C.N.P., M.S.N. [address] [place] [phone] 03/24/2024 7:20 AM CDT Appointment Department of Laboratory Medicine in [address] [phone] Angelica Hutchins M.D. [address] [place] [phone] 04/07/2024 8:20 AM CDT Appointment Department of Laboratory Medicine in [address] [address] Angelica Hutchins M.D. [address] [place] [phone] 04/14/2024 8:00 AM CDT Appointment Department of Laboratory Medicine in [address] [phone] Angelica Hutchins M.D. [address] [place] [phone] 04/15/2024 2:00 PM CDT Clinical Communication Virtual Review in [place], [place] 200 [place] [address] 04/17/2024 11:00 AM CDT Office Visit Department of Neurology in [place], [place] [address] [place] [phone] Wang Bass M.D. [address] [place] [phone] 04/22/2024 7:20 AM CDT Appointment Department of Laboratory Medicine in [address] [address] Angelica Hutchins M.D. [address] [place] [phone] 04/28/2024 7:20 AM CDT Appointment Department of Laboratory Medicine in [address] [phone] Angelica Hutchins M.D. [address] [place] [phone] 04/28/2024 7:40 AM CDT Appointment Department of Laboratory Medicine in [address] [address] Angelica Hutchins M.D. [address] [place] [phone] 05/05/2024 7:50 AM CDT Appointment Department of Laboratory Medicine in [address] [address] Angelica Hutchins M.D. [address] [place] [phone] 05/12/2024 7:20 AM CDT Appointment Department of Laboratory Medicine in [address] [address] Angelica Hutchins M.D. [address] [place] [phone] 05/19/2024 7:20 AM CDT Appointment Department of Laboratory Medicine in [address] [address] Angelica Hutchins M.D. [address] [place] [phone] 05/26/2024 7:20 AM CDT Appointment Department of Laboratory Medicine in [address] [address] Angelica Hutchins M.D. [address] [place] [phone] 05/26/2024 7:30 AM CDT Appointment Department of Laboratory Medicine in [address] [address] Angelica Hutchins M.D. [address] [place] [phone] 06/02/2024 7:20 AM CDT Appointment Department of Laboratory Medicine in [address] [address] Angelica Hutchins M.D. [address] [place] [phone] 06/30/2024 7:20 AM CDT Appointment Department of Laboratory Medicine in [address] [address] Angelica Hutchins M.D. [address] [place] [phone] 06/30/2024 7:30 AM CDT Appointment Department of Laboratory Medicine in [address] [address] Angelica Hutchins M.D. [address] [place] [phone] 07/29/2024 7:20 AM CDT Appointment Department of Laboratory Medicine in [address] [phone] Angelica Hutchins M.D. [address] [place] [phone] 07/29/2024 7:30 AM CDT Appointment Department of Laboratory Medicine in [address] [address] Angelica Hutchins M.D. [address] [place] [phone] documented as of this encounter Visit Diagnoses Not on filedocumented in this encounter Additional Health Concerns Infection Onset Date Last Indicated Resolved Time Protective Environment 03/08/2023 03/08/2023 Assessment Noted Time PHQ-9 Depression Total Score: 1 11/23/20 19 7:04 PM GREENHOUSE LABORER documented as of this encounter Care Teams Material Handler 1St Shift Relationship Specialty Start Date End Date Elsewhere, Pcp PCP - General Strategic Planning Specialist 11/24/[address] [address] Laboratory Medicine 09/18/20 documented as of this encounter
--- OUTSIDE RECORDS SUMMARY | 2024-03-12 05:58 | XMS_ITS | Encounter Summary ---
Author Name Unknown Organization [facility] Address [address] [place] [address] Care Team Providers Care Quickbooks Bookkeeper Name Role Phone Elsewhere, Pcp Primary Care Provider Unavailabl e Reason for Visit * Reason Onset Date Comments Mycophenolate AUC Monitoring 01/01/2024 Encounter Details Date Type Department Care Team (Latest Contact Info) Description 01/01/2024 Clinical Communication Joon Peña [facility] Clinical Regeneration in [place], [place] [address] [place] [address] Bipin Chen R.N., C.C.T.C. [address] [place] [address] Mycophenolate AUC Monitoring Social History Tobacco Use Types Packs/Day Years [...] often do you attend chur ch or tenriism services? 1 to 4 times per year 02/13/2023 Do you belong to any clubs o r organizations such as alevism groups, unions, fraternal or athletic groups, or [...] Answer Date Recorded PHQ-2 Score 0 09/10/2023 [facility] [place] of Occupat ional Health - Occupational Stress [...] Sex Assigned at Female 11/13/2018 9:36 AM BOTTLE LABELER Gender Identity Female 11/13/2018 9:36 AM BOTTLE LABELER Sexual Orientation Straight 11/13/2018 9: 36 AM BOTTLE LABELER documented as of this encounter Miscellaneous Notes * Telephone Encounter - Zhang Chowdhury Pharm.D., R.Ph. - 01/01/2024 1:23 PM CST Transplanted Organ and Date:08/30/2023 (Kidney), 07/20/2011 (Kidney), 05/26/1988 (Kidney) Land Acquisition Manager: TXP POST KIDNEY NURSE TEAM 2 ROCH Mycophenolate assessment -Mycophenolate Mofetil 750 mg twice daily Recent Labs 12/31/23 0941 12/31/23 0812 12/31/23 0735 MYCOPHENOLIC 5.7 H 27.6 H 2.8 -Mycophenolic acid (MPA) area under the curve (AUC): 60.1 mg*h/L, with consensus that an MPA AUC between 30-60 mg*h/L will provide lower risk for both acute rejection and hematologic side effects. Mycophenolate plan: At this time, recommend considering decreasing mycophenolate Mofetil 500 mg twice daily. If a re-check is desired, would advise waiting at minimum 4 weeks to allow for MPA???s nonstationary kinetics,resulting in its accumulation over time. LE LABELER * Telephone Encounter - Bipin Chen R.N. - 01/01/2024 1:16 PM BOTTLE LABELER Pharm friends Please review MPA AUC dated 12/31 Dose: 750 mg in AM and PM Low levels BK viremia no changes done to IS yet. MMF levels have been generous, provider requested MPA AUC to see if we can reduce dose to help with BK. Provider to review: Cuong Thank you LE LABELER documented in this encounter Plan of Treatment Upcoming Encounters Date Type Department Care Team (Latest Contact Info) Description 03/17/2024 7:20 AM CDT Appointment Department of Laboratory Medicine in [address] [phone] Angelica Hutchins M.D. [address] [place] [phone] 03/24/2024 7:10 AM CDT Appointment Department of Laboratory Medicine in [address] [phone] Juan Grier, STUART, C.N.P., M.S.N. [address] [place] [phone] 03/24/2024 7:20 AM CDT Appointment Department of Laboratory Medicine in [address] [phone] Angelica Hutchins M.D. [address] [place] [phone] 04/07/2024 8:20 AM CDT Appointment Department of Laboratory Medicine in [address] [phone] Angelica Hutchins M.D. [address] [place] [phone] 04/14/2024 8:00 AM CDT Appointment Department of Laboratory Medicine in [address] [address] Angelica Hutchins M.D. [address] [place] [phone] 04/15/2024 2:00 PM CDT Clinical Communication Virtual Review in [address] [address] 04/17/2024 11:00 AM CDT Office Visit Department of Neurology in [address] [address] Wang Bass M.D. [address] [place] [phone] 04/22/2024 7:20 AM CDT Appointment Department of Laboratory Medicine in [address] [address] Angelica Hutchins M.D. [address] [place] [phone] 04/28/2024 7:20 AM CDT Appointment Department of Laboratory Medicine in [address] [address] Angelica Hutchins M.D. [address] [place] [phone] 04/28/2024 7:40 AM CDT Appointment Department of Laboratory Medicine in [address] [address] Angelica Hutchins M.D. [address] [place] [phone] 05/05/2024 7:50 AM CDT Appointment Department of Laboratory Medicine in [address] [address] Angelica Hutchins M.D. [address] [place] [phone] 05/12/2024 7:20 AM CDT Appointment Department of Laboratory Medicine in [address] [address] Angelica Hutchins M.D. [address] [place] [phone] 05/19/2024 7:20 AM CDT Appointment Department of Laboratory Medicine in [address] [phone] Angelica Hutchins M.D. [address] [place] [phone] 05/26/2024 7:20 AM CDT Appointment Department of Laboratory Medicine in [address] [address] Angelica Hutchins M.D. [address] [place] [phone] 05/26/2024 7:30 AM CDT Appointment Department of Laboratory Medicine in [address] [address] Angelica Hutchins M.D. [address] [place] [phone] 06/02/2024 7:20 AM CDT Appointment Department of Laboratory Medicine in [address] [address] Angelica Hutchins M.D. [address] [place] [phone] 06/30/2024 7:20 AM CDT Appointment Department of Laboratory Medicine in [address] [address] Angelica Hutchins M.D. [address] [place] [phone] 06/30/2024 7:30 AM CDT Appointment Department of Laboratory Medicine in [address] [address] Angelica Hutchins M.D. [address] [place] [phone] 07/29/2024 7:20 AM CDT Appointment Department of Laboratory Medicine in [address] [address] Angelica Hutchins M.D. [address] [place] [phone] 07/29/2024 7:30 AM CDT Appointment Department of Laboratory Medicine in [address] [phone] Angelica Hutchins M.D. [address] [place] [phone] documented as of this encounter Visit Diagnoses Not on filedocumented in this encounter Additional Health Concerns Infection Onset Date Last Indicated Resolved Time Protective Environment 03/08/2023 03/08/2023 COVID19 Pending 01/14/2024 01/14/2024 01/14/2024 2 :13 PM BOTTLE LABELER Assessment Noted Time PHQ-9 Depression Total Score: 1 11/23/20 19 7:04 PM BOTTLE LABELER documented as of this encounter Care Teams Quickbooks Bookkeeper Relationship Specialty Start Date End Date Elsewhere, Pcp PCP - General Marker Shipments 11/24/[address] [address] Laboratory Medicine 09/18/20 documented as of this encounter
--- OUTSIDE RECORDS SUMMARY | 2024-03-12 05:58 | XMS_ITS | Encounter Summary ---
Author Name Unknown Organization [facility] Address [address] [place] [address] Care Team Providers Care Operational Test Mechanic Name Role Phone Elsewhere, Pcp Primary Care Provider Unavailabl e Reason for Visit * Outpatient (Routine) - Closed Specialty Diagnoses / Procedures Referred By Benedicto tan Referred To Contact Dermatology Diagnoses Tumor Skin Uncertain Behavior Fernanda Mar M.D. 200 [place] [address] [facility] Referral ID Status Reason Start Date Expiration Date Visits Re quested Visits Authorized [id number] Closed 11/14/2023 11/13/2026 1 1 Encounter Details Date Type Department Care Team (Late st Contact Info) Description 12/21/2023 8:00 AM TAFE TEACHER Office Visit Department of Dermatology in [place], [place] [address] [place] [phone] Gabby Clark M.D. [address] [place] [phone] Nevus Dermal (Primary Dx); Keratosis Seborrheic Discharge Disposition: Home or Self Care Social [...] often do you attend chur ch or jainism services? 1 to 4 times per year [...] Answer Date Recorded PHQ-2 Score 0 09/10/2023 [facility] of Occupat ional [facility] - Occupational Stress Questionnaire Answer Date Recorded [...] to sleep or slept in a senior care (including now)? No 02/13/2023 Depression Answer Date [...] Sex Assigned at Female 11/13/2018 9:36 AM TAFE TEACHER Gender Identity Female 11/13/2018 9:36 AM TAFE TEACHER Sexual Orientation Straight 11/13/2018 9: 36 AM TAFE TEACHER documented as of this encounter Progress Notes * Gabby Clark M.D. - 12/21/2023 8:00 AM CST Correspondence To: Dr. Clark Referring provider: Fernanda Mar M.D. Patient discussed with supervising philatelic consultant, Dr. Falk, who concurs with the assessment and plan. SUBJECTIVE Chief Complaint History of Present Illness Ms. Santos is a 58 y.o. female who presents for evaluation of a skin lesion. The patient was seen in clinic for a full-body skin screening exam on 11/14/2023 at which time biopsy of a lesion involving the left medial cheek was recommended. The patient wished to defer biopsy until after the holidays. She presents today for follow-up. Medical history is significant for kidney transplant and immunosuppressed state. Dermatologic history is significant for multiple nonmelanoma skin cancers. The patient is unsure of how long this lesion has been present. She has never noticed it in the past. She does not think that the lesion has grown since her last visit. Lesion is asymptomatic. She also notes lesions under her bilateral eyes that she would like evaluated today. Past Medical/Surgical History Reviewed OBJECTIVE Physical Exam General: Well appearing female in no acute distress. Alert and Oriented. Eyes: No eyelid abnormalities. Skin: A focused exam of the patient's face was performed and significant for: On sun-exposed areas there is a background of diffuse mottled pigmentation with elastotic skin change. Involving the left medial cheek there is an approximately 4 mm flesh colored colored, dome shaped papule with focus of brown pigmentation. Lesion appears unchanged when compared to photographs of thepatient's face uploaded to [employer] in 2019 and 2021. Involving the bilateral upper cheeks/lower eyelids there are waxy stuck on papules consistent with seborrheic keratoses. ASSESSMENT / PLAN Assessment and Plan # Intradermal nevus - left cheek The benign nature of the skin lesion(s) was discussed with the patient. Lesion has been present in photographs of the patients face in 2019 and in 2021 with no apparent changes. I recommend continuedobservation. Should symptoms or changes develop related to this condition, I would recommend a return visit for reassessment. # Seborrheic keratoses - face The benign nature of the skin lesion(s) was discussed with the patient. No treatment is required. Irecommend continued observation. Should symptoms or changes develop related to this condition, I would recommend a return visit for reassessment. PATIENT EDUCATION Ready to learn. No apparent learning barriers were identified. Learning preferences include listening. Explained diagnosis and treatment plan; patient/guardian of patient expressed understanding of the content. Gabby Clark MD PGY-4, Dermatology TEACHER Associated attestation - Dany Baker M.B.B.S., M.D. - 12/21/2023 8:26 AM TAFE TEACHER I saw and evaluated the patient, participating in the nugent portions of the service. I reviewed the resident???s note. I agree with the resident???s findings and plan. documented in this encounter Plan of Treatment Upcoming Encounters Date Type Department Care Team (Latest Contact Info) Description 03/17/2024 7:20 AM CDT Appointment Department of Laboratory Medicine in [address] [phone] Angelica Hutchins M.D. [address] [place] [phone] 03/24/2024 7:10 AM CDT Appointment Department of Laboratory Medicine in [address] [phone] Juan Grier, STUART, C.N.P., M.S.N. [address] [place] [phone] 03/24/2024 7:20 AM CDT Appointment Department of Laboratory Medicine in [address] [phone] Angelica Hutchins M.D. [address] [place] [phone] 04/07/2024 8:20 AM CDT Appointment Department of Laboratory Medicine in [address] [phone] Angelica Hutchins M.D. [address] [place] [phone] 04/14/2024 8:00 AM CDT Appointment Department of Laboratory Medicine in [address] [phone] Angelica Hutchins M.D. [address] [place] [phone] 04/15/2024 2:00 PM CDT Clinical Communication Virtual Review in [address] [address] 04/17/2024 11:00 AM CDT Office Visit Department of Neurology in [address] [address] Wang Bass M.D. [address] [place] [phone] 04/22/2024 7:20 AM CDT Appointment Department of Laboratory Medicine in [address] [phone] Angelica Hutchins M.D. [address] [place] [phone] 04/28/2024 7:20 AM CDT Appointment Department of Laboratory Medicine in [address] [address] Angelica Hutchins M.D. [address] [place] [phone] 04/28/2024 7:40 AM CDT Appointment Department of Laboratory Medicine in [address] [phone] Angelica Hutchins M.D. [address] [place] [phone] 05/05/2024 7:50 AM CDT Appointment Department of Laboratory Medicine in [address] [address] Angelica Hutchins M.D. [address] [place] [phone] 05/12/2024 7:20 AM CDT Appointment Department of Laboratory Medicine in [address] [phone] Angelica Hutchins M.D. [address] [place] [phone] 05/19/2024 7:20 AM CDT Appointment Department of Laboratory Medicine in [address] [phone] Angelica Hutchins M.D. [address] [place] [phone] 05/26/2024 7:20 AM CDT Appointment Department of Laboratory Medicine in [address] [address] Angelica Hutchins M.D. [address] [place] [phone] 05/26/2024 7:30 AM CDT Appointment Department of Laboratory Medicine in [address] [phone] Angelica Hutchins M.D. [address] [place] [phone] 06/02/2024 7:20 AM CDT Appointment Department of Laboratory Medicine in [address] [phone] Angelica Hutchins M.D. [address] [place] [phone] 06/30/2024 7:20 AM CDT Appointment Department of Laboratory Medicine in [address] [address] Angelica Hutchins M.D. [address] [place] [phone] 06/30/2024 7:30 AM CDT Appointment Department of Laboratory Medicine in [address] [phone] Angelica Hutchins M.D. [address] [place] [phone] 07/29/2024 7:20 AM CDT Appointment Department of Laboratory Medicine in [address] [phone] Angelica Hutchins M.D. 200 [place] [phone] 07/29/2024 7:30 AM CDT Appointment Department of Laboratory Medicine in [address] [phone] Angelica Hutchins M.D. 200 [place] [phone] documented as of this encounter Visit Diagnoses Diagnosis Nevus Dermal- Primary Keratosis Seborrheic documented in this encounter Additional Health Concerns Infection Onset Date Last Indicated Resolved Time Protective Environment 03/08/2023 03/08/2023 Assessment Noted Time PHQ-9 Depression Total Score: 1 11/23/20 19 7:04 PM TAFE TEACHER documented as of this encounter Care Teams Operational Test Mechanic Relationship Specialty Start Date End Date Elsewhere, Pcp PCP - General Supervisor [employer] 11/24/[address] [address] Laboratory Medicine 09/18/20 documented as of this encounter
--- OUTSIDE RECORDS SUMMARY | 2024-03-12 05:58 | XMS_ITS | Encounter Summary ---
Author Name Unknown Organization [facility] Address [address] [place] [address] Care Team Providers Care Mill Attendant Name Role Phone Elsewhere, Pcp Primary Care Provider Unavailabl e Encounter Details Date Type Department Care Team (Latest Contact Info) Description 12/31/2023 7:20 AM CUPOLA HOIST OPERATOR - 12/31/2023 7:23 AM [facility] Hospital Encounter Department of Laboratory Medicine in [address] [phone] Juan Grier, STUART, C.N.P., M.S.N. 200 [place] [phone] Transplant Renal (HCC); High 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; Immunodeficiency Due To Drugs (HCC); Immunodeficiency (HCC); Hypomagnesemia; Hypophosphatemia Discharge Disposition: Home or Self Care Social [...] often do you attend chur ch or mormon services? 1 to 4 times per year 02/13/2023 Do you belong to any clubs o r organizations such as episcopal groups, unions, fraternal or athletic groups, or [...] Answer Date Recorded PHQ-2 Score 0 09/10/2023 [facility] [place] of Occupat ional Health - Occupational Stress [...] Sex Assigned at Female 11/13/2018 9:36 AM CUPOLA HOIST OPERATOR Gender Identity Female 11/13/2018 9:36 AM CUPOLA HOIST OPERATOR Sexual Orientation Straight 11/13/2018 9: 36 AM CUPOLA HOIST OPERATOR documented as of this encounter Medications [...] Appointment Department of Laboratory Medicine in [address] [phone] Angelica Hutchins M.D. [address] [place] [phone] 03/24/2024 7:10 AM CDT Appointment Department of Laboratory Medicine in [address] [phone] Juan Grier, STUART, C.N.P., M.S.N. [address] [place] [phone] 03/24/2024 7:20 AM CDT Appointment Department of Laboratory Medicine in [address] [phone] Angelica Hutchins M.D. [address] [place] [phone] 04/07/2024 8:20 AM CDT Appointment Department of Laboratory Medicine in [address] [phone] Angelica Hutchins M.D. [address] [place] [phone] 04/14/2024 8:00 AM CDT Appointment Department of Laboratory Medicine in [address] [phone] Angelica Hutchins M.D. [address] [place] [phone] 04/15/2024 2:00 PM CDT Clinical Communication Virtual Review in [address] [address] 04/17/2024 11:00 AM CDT Office Visit Department of Neurology in [address] [phone] Wang Bass M.D. [address] [place] [phone] 04/22/2024 7:20 AM CDT Appointment Department of Laboratory Medicine in [address] [phone] Angelica Hutchins M.D. [address] [place] [phone] 04/28/2024 7:20 AM CDT Appointment Department of Laboratory Medicine in [address] [phone] Angelica Hutchins M.D. [address] [place] [phone] 04/28/2024 7:40 AM CDT Appointment Department of Laboratory Medicine in [address] [phone] Angelica Hutchins M.D. [address] [place] [phone] 05/05/2024 7:50 AM CDT Appointment Department of Laboratory Medicine in [address] [phone] Angelica Hutchins M.D. [address] [place] [phone] 05/12/2024 7:20 AM CDT Appointment Department of Laboratory Medicine in [address] [phone] Angelica Hutchins M.D. [address] [place] [phone] 05/19/2024 7:20 AM CDT Appointment Department of Laboratory Medicine in [address] [phone] Angelica Hutchins M.D. [address] [place] [phone] 05/26/2024 7:20 AM CDT Appointment Department of Laboratory Medicine in [address] [phone] Angelica Hutchins M.D. [address] [place] [phone] 05/26/2024 7:30 AM CDT Appointment Department of Laboratory Medicine in [address] [phone] Angelica Hutchins M.D. [address] [place] [phone] 06/02/2024 7:20 AM CDT Appointment Department of Laboratory Medicine in [address] [address] Angelica Hutchins M.D. [address] [place] [phone] 06/30/2024 7:20 AM CDT Appointment Department of Laboratory Medicine in [address] [address] Angelica Hutchins M.D. [address] [place] [phone] 06/30/2024 7:30 AM CDT Appointment Department of Laboratory Medicine in [address] [phone] Angelica Hutchins M.D. [address] [place] [phone] 07/29/2024 7:20 AM CDT Appointment Department of Laboratory Medicine in [address] [phone] Angelica Hutchins M.D. [address] [place] [phone] 07/29/2024 7:30 AM CDT Appointment Department of Laboratory Medicine in [address] [phone] Angelica Hutchins M.D. [address] [place] [phone] documented as of this encounter Procedures Procedure Name Priority Date/Time Associated Diagnosis Comments BKV DNA DETECT/QUANT, P Routine 12/31/2023 7:48 AM CUPOLA HOIST OPERATOR Transplant Renal (HCC) High 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 Immunodeficiency Due To Drugs (HCC) CBC WITH DIFFERENTIAL, B Routine 12/31/2023 7:48 AM CUPOLA HOIST OPERATOR Transplant Renal (HCC) High 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 Immunodeficiency (HCC) PHOSPHORUS (INORGANIC), S Routine 12/31/2023 7:48 AM CUPOLA HOIST OPERATOR Transplant Renal (HCC) High 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 Immunodeficiency (HCC) Hypophosphatemia MAGNESIUM, S Routine 12/31/2023 7:48 AM CUPOLA HOIST OPERATOR Transplant Renal (HCC) High 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 Immunodeficiency (HCC) Hypomagnesemia GLUCOSE, FASTING, S/P Routine 12/31/2023 7:48 AM CUPOLA HOIST OPERATOR Transplant Renal (HCC) High 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 Immunodeficiency (HCC) BASIC METABOLIC PANEL, S/P Routine 12/31/2023 7:48 AM CUPOLA HOIST OPERATOR Transplant Renal (HCC) High 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 Immunodeficiency (HCC) MYCOPHENOLIC ACID, S Routine 12/31/2023 7:35 AM CUPOLA HOIST OPERATOR Transplant Renal (HCC) High 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 Immunodeficiency (HCC) TACROLIMUS LEVEL, B Routine 12/31/2023 7 :35 AM CUPOLA HOIST OPERATOR Transplant Renal (HCC) High 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 Immunodeficiency (HCC) documented in this encounter Results * Phosphorus Inorganic (12/31/2023 7:48 AM CUPOLA HOIST OPERATOR) Pathologist [facility] Phosphorus (Inorganic), P 3.0 2.5 - 4.5 mg/dL 12/31/2023 8:08 AM CUPOLA HOIST OPERATOR CNFL Blood (Blood, Venous) 12/31/2023 7:48 AM CUPOLA HOIST OPERATOR 12/31/2023 7:49 AM CUPOLA HOIST OPERATOR Sylvia Wood M.D. LAB BLOOD ADD-ON Performing Organization Address City/[facility]/ZIP Co de Phone Number [address] [address], [facility] in [address] [address] * Magnesium (12/31/2023 7:48 AM CUPOLA HOIST OPERATOR) [facility] Magnesium, P 1.7 1.7 - 2.3 mg/dL 12/31/2023 8:08 AM CUPOLA HOIST OPERATOR CNFL Blood (Blood, Venous) 12/31/2023 7:48 AM CUPOLA HOIST OPERATOR 12/31/2023 7:49 AM CUPOLA HOIST OPERATOR Sylvia Wood M.D. LAB BLOOD ADD-ON [address] [address], [facility] [place] [address] * (ABNORMAL) CBC with Differential, Blood (12/31/2023 7:48 AM CUPOLA HOIST OPERATOR) Pathologist [facility] Hemoglobin 11.8 11.6 - 15.0 g/dL 12/31/2023 8:40 AM CUPOLA HOIST OPERATOR CNFL Hematocrit 35.9 35.5 - 44.9 % 12/31/2023 8:40 AM CUPOLA HOIST OPERATOR CNFL Erythrocytes 3.83(L) 3.92 - 5.13 x10(12)/L 12/31/2023 8:40 AM CUPOLA HOIST OPERATOR CNFL MCV 93.7 78.2 - 97.9 fL 12/31/2023 8:40 AM CUPOLA HOIST OPERATOR CNFL RBC Distrib Width 13.4 12.2 - 16.1 % 12/31/2023 8:40 AM CUPOLA HOIST OPERATOR CNFL Platelet Count 225 157 - 371 x10(9)/L 12/31/2023 8:40 AM CUPOLA HOIST OPERATOR CNFL Leukocytes 9.9(H) 3.4 - 9.6 x10(9)/L 12/31/2023 8:40 AM CUPOLA HOIST OPERATOR CNFL Neutrophils 8.45(H) 1.56 - 6.45 x10(9)/L 12/31/2023 8:40 AM CUPOLA HOIST OPERATOR CNFL Lymphocytes 0.87(L) 0.95 - 3.07 x10(9)/L 12/31/2023 8:40 AM CUPOLA HOIST OPERATOR CNFL Monocytes 0.44 0.26 - 0.81 x10(9)/L 12/31/2023 8:40 AM CUPOLA HOIST OPERATOR CNFL Eosinophils 0.09 0.03 - 0.48 x10(9)/L 12/31/2023 8:40 AM CUPOLA HOIST OPERATOR CNFL Basophils <0.04 0.01 - 0.08 x10(9)/L 12/31/2023 8:40 AM CUPOLA HOIST OPERATOR CNFL Blood (Blood, Venous) 12/31/2023 7:48 AM CUPOLA HOIST OPERATOR 12/31/2023 7:49 AM CUPOLA HOIST OPERATOR Sylvia Wood M.D. LAB BLOOD ADD-ON [facility] [address] [place] [address], [facility] CNFL [facility] in [address] [address] * Glucose, Fasting (12/31/2023 7:48 AM CUPOLA HOIST OPERATOR) Glucose, P 86 70 - 100 mg/dL 12/31/2023 8:04 AM CUPOLA HOIST OPERATOR CNFL Last Intake 14 hr 12/31/2023 7:49 AM CUPOLA HOIST OPERATOR CNFL Blood (Blood, Venous) 12/31/2023 7:48 AM CUPOLA HOIST OPERATOR 12/31/2023 7:49 AM CUPOLA HOIST OPERATOR Sylvia Wood M.D. LAB BLOOD NON ADD-ON [facility] [address] [place] [address], [facility] CNFL [facility] [place] [address] * Basic Metabolic Panel (12/31/2023 7:48 AM CUPOLA HOIST OPERATOR) Potassium, P 4.0 3.6 - 5.2 mmol/L 12/31/2023 8:08 AM CUPOLA HOIST OPERATOR CNFL Sodium, P 141 135 - 145 mmol/L 12/31/2023 8:08 AM CUPOLA HOIST OPERATOR CNFL Chloride, P 107 98 - 107 mmol/L 12/31/2023 8:08 AM CUPOLA HOIST OPERATOR CNFL Bicarbonate, P 22 22 - 29 mmol/L 12/31/2023 8:08 AM CUPOLA HOIST OPERATOR CNFL Anion Gap, P 12 7 - 15 12/31/2023 8:08 AM CUPOLA HOIST OPERATOR CNFL BUN (Blood Urea Nitrogen), P 11 6 - 21 mg/dL 12/31/2023 8:08 AM CUPOLA HOIST OPERATOR CNFL Creatinine 0.83 0.59 - 1.04 mg/dL 12/31/2023 8:08 AM CUPOLA HOIST OPERATOR CNFL Estimated GFR (eGFR) 83 >=60 mL/min/BSA 12/31/2023 8:08 AM CUPOLA HOIST OPERATOR CNFL Comment: Estimated GFR calculated using the 2020 CKD_EPI creatinine equation. Calcium, Total, P 8.8 8.6 - 10.0 mg/dL 12/31/2023 8:08 AM CUPOLA HOIST OPERATOR CNFL Glucose, P CANCELED mg/dL 12/31/2023 7:49 AM CUPOLA HOIST OPERATOR CNFL Comment: Duplicate test request. Result canceled by the ancillary. Blood (Blood, Venous) 12/31/2023 7:48 AM CUPOLA HOIST OPERATOR 12/31/2023 7:49 AM CUPOLA HOIST OPERATOR Sylvia Wood M.D. LAB BLOOD ADD-ON Performing Organization Address City/[facility]/ZIP Co de Phone Number [facility] [address] [place] [phone], [facility] CNFL [facility] in [address] [address] * (ABNORMAL) BKV DNA Detect/Quant (12/31/2023 7:48 AM CUPOLA HOIST OPERATOR) BKV DNA Detect/Quant, P 531(A) Undetected IU/mL 01/01/2024 2:12 PM CUPOLA HOIST OPERATOR SDS Comment: Result in log IU/mL is 2.73. ----ADDITIONAL INFORMATION---- The quantification range of this assay is 22 to 100,000,000 IU/mL (1.34 log to 8.00 log IU/mL). Testing was performed using the chari BKV test ([employer] Blood (Blood, Venous) 12/31/2023 7:48 AM CUPOLA HOIST OPERATOR 12/31/2023 8:30 PM CUPOLA HOIST OPERATOR Juan Grier APRN, C.N.P., M.S.N. LAB MICROBIOLOGY - BLOOD ORDERABLES Performing Organization Address City/[facility]/ZIP Co de Phone Number [facility] [address] [place] [address] [facility] [address] [place] [address] [place] [address] * Mycophenolic Acid (12/31/2023 7:35 AM CUPOLA HOIST OPERATOR) Mycophenolic Acid 2.8 1.0 - 3.5 mcg/mL 01/01/2024 10:50 AM CUPOLA HOIST OPERATOR SDS MPA Glucuronide 55 35 - 100 mcg/mL 01/01/2024 10:50 AM CUPOLA HOIST OPERATOR SDSC Comment: ----ADDITIONAL INFORMATION---- Target steady-state trough concentrations vary depending on the type of transplant, concomitant immunosuppression, clinical/institutional protocols, and time post-transplant. Results should be interpreted in conjunction with this clinical information and any physical signs/symptoms of rejection/toxicity. Testing performed by Liquid Chromatography-Tandem Mass Spectrometry (LC-MS/MS). This test was developed and its performance characteristics determined by [facility] in a manner consistent with CLIA requirements. This test has not been cleared or approved by the U.S. Food and Drug Administration. Blood (Blood, Venous) 12/31/2023 7:35 AM CUPOLA HOIST OPERATOR 01/01/2024 7:38 AM CUPOLA HOIST OPERATOR Angelica Hutchins M.D. LAB BLOOD NON A DD-ON Performing Organization Address [facility] Co de Phone Number [facility] [address] [place] [address] [facility] [address] [place] [address] [place] [address] * Tacrolimus, Trough (12/31/2023 7:35 AM CUPOLA HOIST OPERATOR) [facility] Tacrolimus, Trough 8.1 5.0-15.0 (Trough) ng/mL 01/01/2024 10:54 AM CUPOLA HOIST OPERATOR [facility] Comment: ----ADDITIONAL INFORMATION---- Target steady-state trough concentrations vary depending on the type of transplant, concomitant immunosuppression, clinical/institutional protocols, and time post-transplant. Results should be interpreted in conjunction with this clinical information and any physical signs/symptoms of rejection/toxicity. Testing performed by Liquid Chromatography-Tandem Mass Spectrometry (LC-MS/MS). This test was developed and its performance characteristics determined by [facility] in a manner consistent with CLIA requirements. This test has not been cleared or approved by the U.S. Food and Drug Administration. Blood (Blood, Venous) 12/31/2023 7:35 AM CUPOLA HOIST OPERATOR 01/01/2024 7:36 AM CUPOLA HOIST OPERATOR Sylvia Wood M.D. LAB BLOOD NON ADD-ON Performing Organization Address [facility] Co de Phone Number [facility] [address] [place] [address] [facility] [address] [place] [address] [place] [address] documented in this encounter Visit Diagnoses Diagnosis Transplant Renal (HCC) High 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 Immunodeficiency Due To Drugs (HCC) Immunodeficiency (HCC) Hypomagnesemia Hypophosphatemia documented in this encounter Additional Health Concerns Infection Onset Date Last Indicated Resolved Time Protective Environment 03/08/2023 03/08/2023 Assessment Noted Time PHQ-9 Depression Total Score: 1 11/23/20 19 7:04 PM CUPOLA HOIST OPERATOR documented as of this encounter Care Teams Mill Attendant Relationship Specialty Start Date End Date Elsewhere, Pcp PCP - General V[employer] Business [employer] 11/24/[address] [address] Laboratory Medicine 09/18/20 documented as of this encounter
--- OUTSIDE RECORDS SUMMARY | 2024-03-12 05:58 | XMS_ITS | Encounter Summary ---
Author Name Unknown Organization [facility] Address [address] [place] [address] Care Team Providers Care Cigarette Carton Sealer Name Role Phone Elsewhere, Pcp Primary Care Provider Unavailabl e Reason for Visit * Reason Comments Med Refill Encounter Details Date Type Department Care Team (Late st Contact Info) Description 12/27/2023 Refill Joon millan [facility] in [place], [place] [address] [place] [phone] Bipin Chen R.N., C.C.T.C. [address] [place] [phone] Med Refill Social History Tobacco Use Types [...] often do you attend chur ch or holiness services? 1 to 4 times per year [...] Answer Date Recorded PHQ-2 Score 0 09/10/2023 [facility] - Occupational Stress Questionnaire [...] Sex Assigned at Female 11/13/2018 9:36 AM TECHNICAL SUPPORT INTERN Gender Identity Female 11/13/2018 9:36 AM TECHNICAL SUPPORT INTERN Sexual Orientation Straight 11/13/2018 9: 36 AM TECHNICAL SUPPORT INTERN documented as of this encounter Plan of Treatment Upcoming Encounters Date Type Department Care Team (Latest Contact Info) Description 03/17/2024 7:20 AM CDT Appointment Department of Laboratory Medicine in [address] [phone] Angelica Hutchins M.D. [address] [place] [phone] 03/24/2024 7:10 AM CDT Appointment Department of Laboratory Medicine in [address] [phone] Juan Grier, STUART, C.N.P., M.S.N. [address] [place] [phone] 03/24/2024 7:20 AM CDT Appointment Department of Laboratory Medicine in [address] [phone] Angelica Hutchins M.D. [address] [place] [phone] 04/07/2024 8:20 AM CDT Appointment Department of Laboratory Medicine in [address] [phone] Angelica Hutchins M.D. [address] [place] [phone] 04/14/2024 8:00 AM CDT Appointment Department of Laboratory Medicine in [address] [address] Angelica Hutchins M.D. [address] [place] [phone] 04/15/2024 2:00 PM CDT Clinical Communication Virtual Review in [address] [address] 04/17/2024 11:00 AM CDT Office Visit Department of Neurology in [place], [place] [address] [place] [phone] Wang Bass M.D. [address] [place] [phone] 04/22/2024 7:20 AM CDT Appointment Department of Laboratory Medicine in [address] [phone] Angelica Hutchins M.D. [address] [place] [phone] 04/28/2024 7:20 AM CDT Appointment Department of Laboratory Medicine in [address] [phone] Angelica Hutchins M.D. [address] [place] [phone] 04/28/2024 7:40 AM CDT Appointment Department of Laboratory Medicine in [address] [address] Angelica Hutchins M.D. [address] [place] [phone] 05/05/2024 7:50 AM CDT Appointment Department of Laboratory Medicine in [address] [address] Angelica Hutchins M.D. [address] [place] [phone] 05/12/2024 7:20 AM CDT Appointment Department of Laboratory Medicine in [address] [address] Angelica Hutchins M.D. [address] [place] [phone] 05/19/2024 7:20 AM CDT Appointment Department of Laboratory Medicine in [address] [address] Angelica Hutchins M.D. [address] [place] [phone] 05/26/2024 7:20 AM CDT Appointment Department of Laboratory Medicine in [address] [address] Angelica Hutchins M.D. [address] [place] [phone] 05/26/2024 7:30 AM CDT Appointment Department of Laboratory Medicine in [address] [phone] Angelica Hutchins M.D. [address] [place] [phone] 06/02/2024 7:20 AM CDT Appointment Department of Laboratory Medicine in [address] [address] Angelica Hutchins M.D. [address] [place] [phone] 06/30/2024 7:20 AM CDT Appointment Department of Laboratory Medicine in [address] [address] Angelica Hutchins M.D. [address] [place] [phone] 06/30/2024 7:30 AM CDT Appointment Department of Laboratory Medicine in [address] [address] Angelica Hutchins M.D. [address] [place] [phone] 07/29/2024 7:20 AM CDT Appointment Department of Laboratory Medicine in [address] [address] Angelica Hutchins M.D. [address] [place] [phone] 07/29/2024 7:30 AM CDT Appointment Department of Laboratory Medicine in [address] [address] Angelica Hutchins M.D. [address] [place] [phone] documented as of this encounter Visit Diagnoses Not on filedocumented in this encounter Additional Health Concerns Infection Onset Date Last Indicated Resolved Time Protective Environment 03/08/2023 03/08/2023 Assessment Noted Time PHQ-9 Depression Total Score: 1 11/23/20 19 7:04 PM TECHNICAL SUPPORT INTERN documented as of this encounter Care Teams Cigarette Carton Sealer Relationship Specialty Start Date End Date Elsewhere, Pcp PCP - General Induction Brazer 11/24/[address] [address] Laboratory Medicine 09/18/20 documented as of this encounter
--- OUTSIDE RECORDS SUMMARY | 2024-03-12 05:59 | XMS_ITS | Encounter Summary ---
Author Name Unknown Organization [facility] Address [address] [place] [address] Care Team Providers Care Transportation Economics Teacher Name Role Phone Elsewhere, Pcp Primary Care Provider Unavailabl e Reason for Visit * Reason Comments Med Refill Encounter Details Date Type Department Care Team (Late st Contact Info) Description 12/02/2023 Refill Joon millan [facility] in [place], [place] [address] [place] [phone] Juan Grier, STUART, C.N.P., M.S.N. [address] [place] [address] Med Refill Social History Tobacco Use Types [...] any clubs o r organizations such as confucianist groups, unions, fraternal or athletic groups, or [...] Answer Date Recorded PHQ-2 Score 0 09/10/2023 [facility] [place] of Occupat ional Health - Occupational Stress [...] Sex Assigned at Female 11/13/2018 9:36 AM ORE ROASTER Gender Identity Female 11/13/2018 9:36 AM ORE ROASTER Sexual Orientation Straight 11/13/2018 9: 36 AM ORE ROASTER documented as of this encounter Miscellaneous Notes * Telephone Encounter - Bipin Chen RSravanthiN. - 12/03/2023 1:13 PM ORE ROASTER New script was sent 11/21 ROASTER documented in this encounter Plan of Treatment Upcoming Encounters Date Type Department Care Team (Latest Contact Info) Description 03/17/2024 7:20 AM CDT Appointment Department of Laboratory Medicine in [address] [phone] Angelica Hutchins M.D. [address] [place] [phone] 03/24/2024 7:10 AM CDT Appointment Department of Laboratory Medicine in [address] [address] Juan Grier, STUART, C.N.P., M.S.N. [address] [place] [phone] 03/24/2024 7:20 AM CDT Appointment Department of Laboratory Medicine in [address] [phone] Angelica Hutchins M.D. [address] [place] [phone] 04/07/2024 8:20 AM CDT Appointment Department of Laboratory Medicine in [address] [address] Angelica Hutchins M.D. [address] [place] [phone] 04/14/2024 8:00 AM CDT Appointment Department of Laboratory Medicine in [address] [address] Angelica Hutchins M.D. [address] [place] [phone] 04/15/2024 2:00 PM CDT Clinical Communication Virtual Review in [place], [place] 200 [place] [address] 04/17/2024 11:00 AM CDT Office Visit Department of Neurology in [address] [address] Wang Bass M.D. [address] [place] [phone] 04/22/2024 7:20 AM CDT Appointment Department of Laboratory Medicine in [address] [address] Angelica Hutchins M.D. [address] [place] [phone] 04/28/2024 7:20 AM CDT Appointment Department of Laboratory Medicine in [address] [address] Angelica Hutchins M.D. [address] [place] [phone] 04/28/2024 7:40 AM CDT Appointment Department of Laboratory Medicine in [address] [address] Angelica Hutchins M.D. [address] [place] [phone] 05/05/2024 7:50 AM CDT Appointment Department of Laboratory Medicine in [address] [address] Angelica Hutchins M.D. [address] [place] [phone] 05/12/2024 7:20 AM CDT Appointment Department of Laboratory Medicine in [address] [address] Angelica Hutchins M.D. [address] [place] [phone] 05/19/2024 7:20 AM CDT Appointment Department of Laboratory Medicine in [address] [address] Angelica Hutchins M.D. [address] [place] [phone] 05/26/2024 7:20 AM CDT Appointment Department of Laboratory Medicine in [address] [address] Angelica Hutchins M.D. [address] [place] [phone] 05/26/2024 7:30 AM CDT Appointment Department of Laboratory Medicine in [address] [address] Angelica Hutchins M.D. [address] [place] [phone] 06/02/2024 7:20 AM CDT Appointment Department of Laboratory Medicine in [address] [address] Angelica Hutchins M.D. [address] [place] [phone] 06/30/2024 7:20 AM CDT Appointment Department of Laboratory Medicine in [address] [address] Angelica Hutchins M.D. [address] [place] [phone] 06/30/2024 7:30 AM CDT Appointment Department of Laboratory Medicine in [address] [address] Angelica Hutchins M.D. [address] [place] [phone] 07/29/2024 7:20 AM CDT Appointment Department of Laboratory Medicine in [address] [address] Angelica Hutchins M.D. [address] [place] [phone] 07/29/2024 7:30 AM CDT Appointment Department of Laboratory Medicine in [address] [address] Angelica Hutchins M.D. [address] [place] [phone] documented as of this encounter Visit Diagnoses Not on filedocumented in this encounter Additional Health Concerns Infection Onset Date Last Indicated Resolved Time Protective Environment 03/08/2023 03/08/2023 Assessment Noted Time PHQ-9 Depression Total Score: 1 11/23/20 19 7:04 PM ORE ROASTER documented as of this encounter Care Teams Transportation Economics Teacher Relationship Specialty Start Date End Date Elsewhere, Pcp PCP - General Rfid Engineer 11/24/[address] [address] Laboratory Medicine 09/18/20 documented as of this encounter
--- OUTSIDE RECORDS SUMMARY | 2024-03-12 05:59 | XMS_ITS | Encounter Summary ---
Author Name Unknown Organization [facility] Address [address] [place] [address] Care Team Providers Care Glass Fitter Name Role Phone Elsewhere, Pcp Primary Care Provider Unavailabl e Encounter Details Date Type Department Care Team (Late st Contact Info) Description 12/17/2023 Orders Only Joon Peña [facility] in [place], [place] [address] [place] [phone] Bipin Chen R.N., C.C.T.C. [address] [place] [phone] Transplant Renal (HCC) (Primary Dx); High 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; Immunodeficiency (HCC); Hypomagnesemia; Hypophosphatemia Social History Tobacco Use Types Packs/Day Years [...] Answer Date Recorded PHQ-2 Score 0 09/10/2023 [facility] of Occupat ional Health - Occupational Stress [...] place to sleep or slept in a nursing home (including now)? No 02/13/2023 Depression Answer [...] Sex Assigned at Female 11/13/2018 9:36 AM SALES SERVICE MANAGER Gender Identity Female 11/13/2018 9:36 AM SALES SERVICE MANAGER Sexual Orientation Straight 11/13/2018 9: 36 AM SALES SERVICE MANAGER documented as of this encounter Plan of Treatment Upcoming Encounters Date Type Department Care Team (Latest Contact Info) Description 03/17/2024 7:20 AM CDT Appointment Department of Laboratory Medicine in [address] [phone] Angelica Hutchins M.D. [address] [place] [phone] 03/24/2024 7:10 AM CDT Appointment Department of Laboratory Medicine in [address] [phone] Juan Grier, STUART, C.N.P., M.S.N. [address] [place] [phone] 03/24/2024 7:20 AM CDT Appointment Department of Laboratory Medicine in [address] [phone] Angelica Hutchins M.D. [address] [place] [phone] 04/07/2024 8:20 AM CDT Appointment Department of Laboratory Medicine in [address] [phone] Angelica Hutchins M.D. [address] [place] [phone] 04/14/2024 8:00 AM CDT Appointment Department of Laboratory Medicine in [address] [phone] Angelica Hutchins M.D. [address] [place] [phone] 04/15/2024 2:00 PM CDT Clinical Communication Virtual Review in [place], [place] 200 [place] [address] 04/17/2024 11:00 AM CDT Office Visit Department of Neurology in [place], [place] [address] [place] [phone] Wang Bass M.D. [address] [place] [phone] 04/22/2024 7:20 AM CDT Appointment Department of Laboratory Medicine in [address] [phone] Angelica Hutchins M.D. [address] [place] [phone] 04/28/2024 7:20 AM CDT Appointment Department of Laboratory Medicine in [address] [phone] Angelica Hutchins M.D. [address] [place] [phone] 04/28/2024 7:40 AM CDT Appointment Department of Laboratory Medicine in [address] [phone] Angelica Hutchins M.D. [address] [place] [phone] 05/05/2024 7:50 AM CDT Appointment Department of Laboratory Medicine in [address] [address] Angelica Hutchins M.D. [address] [place] [phone] 05/12/2024 7:20 AM CDT Appointment Department of Laboratory Medicine in [address] [address] Angelica Hutchins M.D. [address] [place] [phone] 05/19/2024 7:20 AM CDT Appointment Department of Laboratory Medicine in [address] [address] Angelica Hutchins M.D. [address] [place] [phone] 05/26/2024 7:20 AM CDT Appointment Department of Laboratory Medicine in [address] [address] Angelica Hutchins M.D. [address] [place] [phone] 05/26/2024 7:30 AM CDT Appointment Department of Laboratory Medicine in [address] [address] Angelica Hutchins M.D. [address] [place] [phone] 06/02/2024 7:20 AM CDT Appointment Department of Laboratory Medicine in [address] [address] Angelica Hutchins M.D. [address] [place] [phone] 06/30/2024 7:20 AM CDT Appointment Department of Laboratory Medicine in [address] [address] Angelica Hutchins M.D. [address] [place] [phone] 06/30/2024 7:30 AM CDT Appointment Department of Laboratory Medicine in [address] [phone] Angelica Hutchins M.D. [address] [place] [phone] 07/29/2024 7:20 AM CDT Appointment Department of Laboratory Medicine in [address] [phone] Angelica Hutchins M.D. [address] [place] [phone] 07/29/2024 7:30 AM CDT Appointment Department of Laboratory Medicine in [address] [phone] Angelica Hutchins M.D. [address] [place] [phone] documented as of this encounter Results * Phosphorus Inorganic (12/31/2023 7:48 AM SALES SERVICE MANAGER) Phosphorus (Inorganic), P 3.0 2.5 - 4.5 mg/dL 12/31/2023 8:08 AM SALES SERVICE MANAGER [place] Blood (Blood, Venous) 12/31/2023 7:48 AM SALES SERVICE MANAGER 12/31/2023 7:49 AM SALES SERVICE MANAGER Sylvia Wood M.D. LAB BLOOD ADD-ON [facility] [address] [place] [address], [place] [facility] in [address] [address] * Magnesium (12/31/2023 7:48 AM SALES SERVICE MANAGER) Pathologist [facility] Magnesium, P 1.7 1.7 - 2.3 mg/dL 12/31/2023 8:08 AM SALES SERVICE MANAGER CNFL Blood (Blood, Venous) 12/31/2023 7:48 AM SALES SERVICE MANAGER 12/31/2023 7:49 AM SALES SERVICE MANAGER Sylvia Wood M.D. LAB BLOOD ADD-ON [facility] [address] [place] [phone], [facility] CNFL [facility] in [address] [address] * (ABNORMAL) CBC with Differential, Blood (12/31/2023 7:48 AM SALES SERVICE MANAGER) Pathologist [facility] Hemoglobin 11.8 11.6 - 15.0 g/dL 12/31/2023 8:40 AM SALES SERVICE MANAGER CNFL Hematocrit 35.9 35.5 - 44.9 % 12/31/2023 8:40 AM SALES SERVICE MANAGER CNFL Erythrocytes 3.83(L) 3.92 - 5.13 x10(12)/L 12/31/2023 8:40 AM SALES SERVICE MANAGER CNFL MCV 93.7 78.2 - 97.9 fL 12/31/2023 8:40 AM SALES SERVICE MANAGER CNFL RBC Distrib Width 13.4 12.2 - 16.1 % 12/31/2023 8:40 AM SALES SERVICE MANAGER CNFL Platelet Count 225 157 - 371 x10(9)/L 12/31/2023 8:40 AM SALES SERVICE MANAGER CNFL Leukocytes 9.9(H) 3.4 - 9.6 x10(9)/L 12/31/2023 8:40 AM SALES SERVICE MANAGER CNFL Neutrophils 8.45(H) 1.56 - 6.45 x10(9)/L 12/31/2023 8:40 AM SALES SERVICE MANAGER CNFL Lymphocytes 0.87(L) 0.95 - 3.07 x10(9)/L 12/31/2023 8:40 AM SALES SERVICE MANAGER CNFL Monocytes 0.44 0.26 - 0.81 x10(9)/L 12/31/2023 8:40 AM SALES SERVICE MANAGER CNFL Eosinophils 0.09 0.03 - 0.48 x10(9)/L 12/31/2023 8:40 AM SALES SERVICE MANAGER CNFL Basophils <0.04 0.01 - 0.08 x10(9)/L 12/31/2023 8:40 AM SALES SERVICE MANAGER CNFL Blood (Blood, Venous) 12/31/2023 7:48 AM SALES SERVICE MANAGER 12/31/2023 7:49 AM SALES SERVICE MANAGER Sylvia Wood M.D. LAB BLOOD ADD-ON Performing Organization Address City/[facility]/ZIP Co de Phone Number [facility] [address] [place] [address], [place] [address] * Glucose, Fasting (12/31/2023 7:48 AM SALES SERVICE MANAGER) Glucose, P 86 70 - 100 mg/dL 12/31/2023 8:04 AM SALES SERVICE MANAGER CNFL Last Intake 14 hr 12/31/2023 7:49 AM SALES SERVICE MANAGER CNFL Blood (Blood, Venous) 12/31/2023 7:48 AM SALES SERVICE MANAGER 12/31/2023 7:49 AM SALES SERVICE MANAGER Sylvia Wood M.D. LAB BLOOD NON ADD-ON Performing Organization Address City/[facility]/ZIP Co de Phone Number [facility] [address] [place] [address], [place] [address] * Basic Metabolic Panel (12/31/2023 7:48 AM SALES SERVICE MANAGER) Potassium, P 4.0 3.6 - 5.2 mmol/L 12/31/2023 8:08 AM SALES SERVICE MANAGER CNFL Sodium, P 141 135 - 145 mmol/L 12/31/2023 8:08 AM SALES SERVICE MANAGER CNFL Chloride, P 107 98 - 107 mmol/L 12/31/2023 8:08 AM SALES SERVICE MANAGER CNFL Bicarbonate, P 22 22 - 29 mmol/L 12/31/2023 8:08 AM SALES SERVICE MANAGER CNFL Anion Gap, P 12 7 - 15 12/31/2023 8:08 AM SALES SERVICE MANAGER CNFL BUN (Blood Urea Nitrogen), P 11 6 - 21 mg/dL 12/31/2023 8:08 AM SALES SERVICE MANAGER CNFL Creatinine 0.83 0.59 - 1.04 mg/dL 12/31/2023 8:08 AM SALES SERVICE MANAGER CNFL Estimated GFR (eGFR) 83 >=60 mL/min/BSA 12/31/2023 8:08 AM SALES SERVICE MANAGER CNFL Comment: Estimated GFR calculated using the 2020 CKD_EPI creatinine equation. Calcium, Total, P 8.8 8.6 - 10.0 mg/dL 12/31/2023 8:08 AM SALES SERVICE MANAGER CNFL Glucose, P CANCELED mg/dL 12/31/2023 7:49 AM SALES SERVICE MANAGER CNFL Comment: Duplicate test request. Result canceled by the ancillary. Blood (Blood, Venous) 12/31/2023 7:48 AM SALES SERVICE MANAGER 12/31/2023 7:49 AM SALES SERVICE MANAGER Sylvia Wood M.D. LAB BLOOD ADD-ON [facility] [address] [place] [address], [facility] [place] [address] * Tacrolimus, Trough (12/31/2023 7:35 AM SALES SERVICE MANAGER) Tacrolimus, Trough 8.1 5.0-15.0 (Trough) ng/mL 01/01/2024 10:54 AM [facility] Comment: ----ADDITIONAL INFORMATION---- Target steady-state trough concentrations vary depending on the type of transplant, concomitant immunosuppression, clinical/institutional protocols, and time post-transplant. Results should be interpreted in conjunction with this clinical information and any physical signs/symptoms of rejection/toxicity. Testing performed by Liquid Chromatography-Tandem Mass Spectrometry (LC-MS/MS). This test was developed and its performance characteristics determined by [facility] in a manner consistent with CLIA requirements. This test has not been cleared or approved by the U.S. Food and Drug Administration. Blood (Blood, Venous) 12/31/2023 7:35 AM SALES SERVICE MANAGER 01/01/2024 7:36 AM SALES SERVICE MANAGER Sylvia Wood M.D. LAB BLOOD NON ADD-ON [facility] [address] [place] [address] [facility] [address] [place] [address] [place] [address] documented in this encounter Visit Diagnoses Diagnosis Transplant Renal (HCC)- Primary High 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 Immunodeficiency (HCC) Hypomagnesemia Hypophosphatemia documented in this encounter Additional Health Concerns Infection Onset Date Last Indicated Resolved Time Protective Environment 03/08/2023 03/08/2023 Assessment Noted Time PHQ-9 Depression Total Score: 1 11/23/20 19 7:04 PM SALES SERVICE MANAGER documented as of this encounter Care Teams Glass Fitter Relationship Specialty Start Date End Date Elsewhere, Pcp PCP - General Cotton Picker 11/24/[address] [address] Laboratory Medicine 09/18/20 documented as of this encounter
--- OUTSIDE RECORDS SUMMARY | 2024-03-12 05:59 | XMS_ITS | Encounter Summary ---
Author Name Unknown Organization [facility] Address [address] [place] [address] Care Team Providers Care Senior Tableau Developer Name Role Phone Elsewhere, Pcp Primary Care Provider Unavailabl e Encounter Details Date Type Department Care Team (Latest Contact Info) Description 12/17/2023 Orders Only Joon Peña [facility] in [place], [place] [address] [place] [address] Bipin Chen R.N., C.C.T.C. [address] [place] [address] Hypophosphatemia (Primary Dx); Transplant Renal (HCC); High 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; Immunodeficiency (HCC) Social History Tobacco Use Types Packs/Day [...] often do you attend chur ch or faith services? 1 to 4 times [...] Answer Date Recorded PHQ-2 Score 0 09/10/2023 [facility] [place] of Occupat ional Health - Occupational Stress [...] Sex Assigned at Female 11/13/2018 9:36 AM REVIEW ANALYST Gender Identity Female 11/13/2018 9:36 AM REVIEW ANALYST Sexual Orientation Straight 11/13/2018 9: 36 AM REVIEW ANALYST documented as of this encounter Plan of Treatment Upcoming Encounters Date Type Department Care Team (Latest Contact Info) Description 03/17/2024 7:20 AM CDT Appointment Department of Laboratory Medicine in [address] [phone] Angelica Hutchins M.D. [address] [place] [phone] 03/24/2024 7:10 AM CDT Appointment Department of Laboratory Medicine in [address] [address] Juan Grier, STUART, C.N.P., M.S.N. [address] [place] [phone] 03/24/2024 7:20 AM CDT Appointment Department of Laboratory Medicine in [address] [phone] Angelica Hutchins M.D. [address] [place] [phone] 04/07/2024 8:20 AM CDT Appointment Department of Laboratory Medicine in [address] [address] Angelica Hutchins M.D. [address] [place] [phone] 04/14/2024 8:00 AM CDT Appointment Department of Laboratory Medicine in [address] [address] Angelica Hutchins M.D. [address] [place] [phone] 04/15/2024 2:00 PM CDT Clinical Communication Virtual Review in [place], [place] 200 [place] [address] 04/17/2024 11:00 AM CDT Office Visit Department of Neurology in [place], [place] [address] [place] [phone] Wang Bass M.D. [address] [place] [phone] 04/22/2024 7:20 AM CDT Appointment Department of Laboratory Medicine in [address] [address] Angelica Hutchins M.D. [address] [place] [phone] 04/28/2024 7:20 AM CDT Appointment Department of Laboratory Medicine in [address] [address] Angelica Hutchins M.D. [address] [place] [phone] 04/28/2024 7:40 AM CDT Appointment Department of Laboratory Medicine in [address] [address] Angelica Hutchins M.D. [address] [place] [phone] 05/05/2024 7:50 AM CDT Appointment Department of Laboratory Medicine in [address] [address] Angelica Hutchins M.D. [address] [place] [phone] 05/12/2024 7:20 AM CDT Appointment Department of Laboratory Medicine in [address] [address] Angelica Hutchins M.D. [address] [place] [phone] 05/19/2024 7:20 AM CDT Appointment Department of Laboratory Medicine in [address] [address] Angelica Hutchins M.D. [address] [place] [phone] 05/26/2024 7:20 AM CDT Appointment Department of Laboratory Medicine in [address] [address] Angelica Hutchins M.D. [address] [place] [phone] 05/26/2024 7:30 AM CDT Appointment Department of Laboratory Medicine in [address] [address] Angelica Hutchins M.D. [address] [place] [phone] 06/02/2024 7:20 AM CDT Appointment Department of Laboratory Medicine in [address] [address] Angelica Hutchins M.D. [address] [place] [phone] 06/30/2024 7:20 AM CDT Appointment Department of Laboratory Medicine in [address] [address] Angelica Hutchins M.D. [address] [place] [phone] 06/30/2024 7:30 AM CDT Appointment Department of Laboratory Medicine in [address] [address] Angelica Hutchins M.D. [address] [place] [phone] 07/29/2024 7:20 AM CDT Appointment Department of Laboratory Medicine in [address] [address] Angelica Hutchins M.D. [address] [place] [phone] 07/29/2024 7:30 AM CDT Appointment Department of Laboratory Medicine in [address] [address] Angelica Hutchins M.D. [address] [place] [phone] documented as of this encounter Visit Diagnoses Diagnosis Hypophosphatemia- Primary Transplant Renal (HCC) High 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 Immunodeficiency (HCC) documented in this encounter Additional Health Concerns Infection Onset Date Last Indicated Resolved Time Protective Environment 03/08/2023 03/08/2023 Assessment Noted Time PHQ-9 Depression Total Score: 1 11/23/20 19 7:04 PM REVIEW ANALYST documented as of this encounter Care Teams Senior Tableau Developer Relationship Specialty Start Date End Date Elsewhere, Pcp PCP - General Project Asst 11/24/[address] [address] Laboratory Medicine 09/18/20 documented as of this encounter
--- OUTSIDE RECORDS SUMMARY | 2024-03-12 05:59 | XMS_ITS | Encounter Summary ---
Author Name Unknown Organization [facility] Address [address] [place] [address] Care Team Providers Care Medical Staff Manager Name Role Phone Elsewhere, Pcp Primary Care Provider Unavailabl e Reason for Visit * Reason Onset Date Comments Phone Contact 12/18/2023 Encounter Details Date Type Department Care Team (Latest Contact Info) Description 12/18/2023 Clinical Communication Joon Peña [facility] in [place], [place] [address] [place] [address] Bipin Chen R.N., C.C.T.C. [address] [place] [phone] Phone Contact Social History Tobacco Use Types Packs/Day Years [...] any clubs o r organizations such as religion groups, unions, fraternal or athletic groups, or [...] Answer Date Recorded PHQ-2 Score 0 09/10/2023 [facility] [place] of Occupat ional Health - Occupational [...] Sex Assigned at Female 11/13/2018 9:36 AM REAL ESTATE BROKER Gender Identity Female 11/13/2018 9:36 AM REAL ESTATE BROKER Sexual Orientation Straight 11/13/2018 9: 36 AM REAL ESTATE BROKER documented as of this encounter Plan of Treatment Upcoming Encounters Date Type Department Care Team (Latest Contact Info) Description 03/17/2024 7:20 AM CDT Appointment Department of Laboratory Medicine in [address] [phone] Angelica Hutchins M.D. [address] [place] [phone] 03/24/2024 7:10 AM CDT Appointment Department of Laboratory Medicine in [address] [address] Juan Grier, STUART, C.N.P., M.S.N. [address] [place] [phone] 03/24/2024 7:20 AM CDT Appointment Department of Laboratory Medicine in [address] [address] Angelica Hutchins M.D. [address] [place] [phone] 04/07/2024 8:20 AM CDT Appointment Department of Laboratory Medicine in [address] [phone] Angelica Hutchins M.D. [address] [place] [phone] 04/14/2024 8:00 AM CDT Appointment Department of Laboratory Medicine in [address] [address] Angelica Hutchins M.D. [address] [place] [phone] 04/15/2024 2:00 PM CDT Clinical Communication Virtual Review in [place], [place] 200 [place] [address] 04/17/2024 11:00 AM CDT Office Visit Department of Neurology in [address] [address] Wang Bass M.D. [address] [place] [phone] 04/22/2024 7:20 AM CDT Appointment Department of Laboratory Medicine in [address] [address] Angelica Hutchins M.D. [address] [place] [phone] 04/28/2024 7:20 AM CDT Appointment Department of Laboratory Medicine in [address] [address] Angelica Hutchins M.D. [address] [place] [phone] 04/28/2024 7:40 AM CDT Appointment Department of Laboratory Medicine in [address] [address] Angelica Hutchins M.D. [address] [place] [phone] 05/05/2024 7:50 AM CDT Appointment Department of Laboratory Medicine in [address] [address] Angelica Hutchins M.D. [address] [place] [phone] 05/12/2024 7:20 AM CDT Appointment Department of Laboratory Medicine in [address] [address] Angelica Hutchins M.D. [address] [place] [phone] 05/19/2024 7:20 AM CDT Appointment Department of Laboratory Medicine in [address] [address] Angelica Hutchins M.D. [address] [place] [phone] 05/26/2024 7:20 AM CDT Appointment Department of Laboratory Medicine in [address] [address] Angelica Hutchins M.D. [address] [place] [phone] 05/26/2024 7:30 AM CDT Appointment Department of Laboratory Medicine in [address] [address] Angelica Hutchins M.D. [address] [place] [phone] 06/02/2024 7:20 AM CDT Appointment Department of Laboratory Medicine in [address] [address] Angelica Hutchins M.D. [address] [place] [phone] 06/30/2024 7:20 AM CDT Appointment Department of Laboratory Medicine in [address] [address] Angelica Hutchins M.D. [address] [place] [phone] 06/30/2024 7:30 AM CDT Appointment Department of Laboratory Medicine in [address] [address] Angelica Hutchins M.D. [address] [place] [phone] 07/29/2024 7:20 AM CDT Appointment Department of Laboratory Medicine in [address] [address] Angelica Hutchins M.D. [address] [place] [phone] 07/29/2024 7:30 AM CDT Appointment Department of Laboratory Medicine in [address] [address] Angelica Hutchins M.D. [address] [place] [phone] documented as of this encounter Visit Diagnoses Not on filedocumented in this encounter Additional Health Concerns Infection Onset Date Last Indicated Resolved Time Protective Environment 03/08/2023 03/08/2023 COVID19 Pending 01/14/2024 01/14/2024 01/14/2024 2 :13 PM REAL ESTATE BROKER Assessment Noted Time PHQ-9 Depression Total Score: 1 11/23/20 19 7:04 PM REAL ESTATE BROKER documented as of this encounter Care Teams Medical Staff Manager Relationship Specialty Start Date End Date Elsewhere, Pcp PCP - General Plant Security Guard 11/24/[address] [address] Laboratory Medicine 09/18/20 documented as of this encounter
--- OUTSIDE RECORDS SUMMARY | 2024-03-12 05:59 | XMS_ITS | Encounter Summary ---
Author Name Unknown Organization [facility] Address [address] [place] [address] Care Team Providers Care Protection Officer Name Role Phone Elsewhere, Pcp Primary Care Provider Unavailabl e Reason for Visit * Reason Comments Med Refill Encounter Details Date Type Department Care Team (Late st Contact Info) Description 12/19/2023 Refill Joon millan [facility] for Transplantation and Clinical Regeneration in [place], [place] [address] [place] [phone] Juan Grier, STUART, C.N.P., M.S.N. [address] [place] [address] Med Refill Social History Tobacco Use Types [...] often do you attend chur ch or hindu services? 1 to 4 times per year [...] Answer Date Recorded PHQ-2 Score 0 09/10/2023 [facility] [place] of Occupat ional Health - Occupational Stress [...] Sex Assigned at Female 11/13/2018 9:36 AM PRODUCTION METAL SPRAYER Gender Identity Female 11/13/2018 9:36 AM PRODUCTION METAL SPRAYER Sexual Orientation Straight 11/13/2018 9: 36 AM PRODUCTION METAL SPRAYER documented as of this encounter Plan of Treatment Upcoming Encounters Date Type Department Care Team (Latest Contact Info) Description 03/17/2024 7:20 AM CDT Appointment Department of Laboratory Medicine in [address] [phone] Angelica Hutchins M.D. [address] [place] [phone] 03/24/2024 7:10 AM CDT Appointment Department of Laboratory Medicine in [address] [address] Juan Grier, STUART, C.N.P., M.S.N. [address] [place] [phone] 03/24/2024 7:20 AM CDT Appointment Department of Laboratory Medicine in [address] [address] Angelica Hutchins M.D. [address] [place] [phone] 04/07/2024 8:20 AM CDT Appointment Department of Laboratory Medicine in [address] [address] Angelica Hutchins M.D. [address] [place] [phone] 04/14/2024 8:00 AM CDT Appointment Department of Laboratory Medicine in [address] [phone] Angelica Hutchins M.D. [address] [place] [phone] 04/15/2024 2:00 PM CDT Clinical Communication Virtual Review in [place], [place] 200 [place] [address] 04/17/2024 11:00 AM CDT Office Visit Department of Neurology in [place], [place] [address] [place] [phone] Wang Bass M.D. [address] [place] [phone] 04/22/2024 7:20 AM CDT Appointment Department of Laboratory Medicine in [address] [address] Angelica Hutchins M.D. [address] [place] [phone] 04/28/2024 7:20 AM CDT Appointment Department of Laboratory Medicine in [address] [address] Angelica Hutchins M.D. [address] [place] [phone] 04/28/2024 7:40 AM CDT Appointment Department of Laboratory Medicine in [address] [address] Angelcia Hutchins M.D. [address] [place] [phone] 05/05/2024 7:50 AM CDT Appointment Department of Laboratory Medicine in [address] [address] Angelica Hutchins M.D. [address] [place] [phone] 05/12/2024 7:20 AM CDT Appointment Department of Laboratory Medicine in [address] [address] Angelica Hutchins M.D. [address] [place] [phone] 05/19/2024 7:20 AM CDT Appointment Department of Laboratory Medicine in [address] [address] Angelica Hutchins M.D. [address] [place] [phone] 05/26/2024 7:20 AM CDT Appointment Department of Laboratory Medicine in [address] [address] Angelica Hutchins M.D. [address] [place] [phone] 05/26/2024 7:30 AM CDT Appointment Department of Laboratory Medicine in [address] [address] Angelica Hutchins M.D. [address] [place] [phone] 06/02/2024 7:20 AM CDT Appointment Department of Laboratory Medicine in [address] [address] Angelica Hutchins M.D. [address] [place] [phone] 06/30/2024 7:20 AM CDT Appointment Department of Laboratory Medicine in [address] [address] Angelica Hutchins M.D. [address] [place] [phone] 06/30/2024 7:30 AM CDT Appointment Department of Laboratory Medicine in [address] [address] Angelica Hutchins M.D. [address] [place] [phone] 07/29/2024 7:20 AM CDT Appointment Department of Laboratory Medicine in [address] [address] Angelica Hutchins M.D. [address] [place] [phone] 07/29/2024 7:30 AM CDT Appointment Department of Laboratory Medicine in [address] [address] Angelica Hutchins M.D. [address] [place] [phone] documented as of this encounter Visit Diagnoses Not on filedocumented in this encounter Additional Health Concerns Infection Onset Date Last Indicated Resolved Time Protective Environment 03/08/2023 03/08/2023 Assessment Noted Time PHQ-9 Depression Total Score: 1 11/23/20 19 7:04 PM PRODUCTION METAL SPRAYER documented as of this encounter Care Teams Protection Officer Relationship Specialty Start Date End Date Elsewhere, Pcp PCP - General [place] Machine Operator 11/24/[address] [address] Laboratory Medicine 09/18/20 documented as of this encounter
--- OUTSIDE RECORDS SUMMARY | 2024-03-12 05:59 | XMS_ITS | Encounter Summary ---
Author Name Unknown Organization [facility] Address [address] [place] [address] Care Team Providers Care Manager Of Application Development Name Role Phone Elsewhere, Pcp Primary Care Provider Unavailabl e Reason for Visit * Reason Comments Med Refill Encounter Details Date Type Department Care Team (Late st Contact Info) Description 12/18/2023 Refill Joon millan [facility] Transplantation and Clinical Regeneration in [place], [place] [address] [place] [address] Charu Alicea, R.N. Med Refill Social History [...] How often do you attend chur or samaritan services? 1 to 4 times per year 02/13/2023 Do you belong to any clubs o r organizations such as samaritan groups, unions, fraternal or athletic groups, or [...] Sex Assigned at Female 11/13/2018 9:36 AM FURNACE KEEPER Gender Identity Female 11/13/2018 9:36 AM FURNACE KEEPER Sexual Orientation Straight 11/13/2018 9: 36 AM FURNACE KEEPER documented as of this encounter Plan of Treatment Upcoming Encounters Date Type Department Care Team (Latest Contact Info) Description 03/17/2024 7:20 AM CDT Appointment Department of Laboratory Medicine in [address] [address] Angelica Hutchins M.D. [address] [place] [phone] 03/24/2024 7:10 AM CDT Appointment Department of Laboratory Medicine in [address] [address] Juan Grier APRN, C.N.P., M.S.N. [address] [place] [phone] 03/24/2024 7:20 AM CDT Appointment Department of Laboratory Medicine in [address] [address] Angelica Hutchins M.D. [address] [place] [phone] 04/07/2024 8:20 AM CDT Appointment Department of Laboratory Medicine in [address] [address] Angelica Hutchins M.D. [address] [place] [phone] 04/14/2024 8:00 AM CDT Appointment Department of Laboratory Medicine in [address] [address] Angelica Hutchins M.D. [address] [place] [phone] 04/15/2024 2:00 PM CDT Clinical Communication Virtual Review in [address] [address] 04/17/2024 11:00 AM CDT Office Visit Department of Neurology in [place], [place] [address] [place] [phone] Wang Bass M.D. [address] [place] [phone] 04/22/2024 7:20 AM CDT Appointment Department of Laboratory Medicine in [address] [address] Angelica Hutchins M.D. [address] [place] [phone] 04/28/2024 7:20 AM CDT Appointment Department of Laboratory Medicine in [address] [address] Angelica Hutchins M.D. [address] [place] [phone] 04/28/2024 7:40 AM CDT Appointment Department of Laboratory Medicine in [address] [address] Angelica Hutchins M.D. [address] [place] [phone] 05/05/2024 7:50 AM CDT Appointment Department of Laboratory Medicine in [address] [address] Angelica Hutchins M.D. [address] [place] [phone] 05/12/2024 7:20 AM CDT Appointment Department of Laboratory Medicine in [address] [address] Angelica Hutchins M.D. [address] [place] [phone] 05/19/2024 7:20 AM CDT Appointment Department of Laboratory Medicine in [address] [address] Angelica Hutchins M.D. [address] [place] [phone] 05/26/2024 7:20 AM CDT Appointment Department of Laboratory Medicine in [address] [address] Angelica Hutchins M.D. [address] [place] [phone] 05/26/2024 7:30 AM CDT Appointment Department of Laboratory Medicine in [address] [address] Angelica Hutchins M.D. [address] [place] [phone] 06/02/2024 7:20 AM CDT Appointment Department of Laboratory Medicine in [address] [address] Angelica Hutchins M.D. [address] [place] [phone] 06/30/2024 7:20 AM CDT Appointment Department of Laboratory Medicine in [address] [address] Angelica Hutchins M.D. [address] [place] [phone] 06/30/2024 7:30 AM CDT Appointment Department of Laboratory Medicine in [address] [address] Angelica Hutchins M.D. [address] [place] [phone] 07/29/2024 7:20 AM CDT Appointment Department of Laboratory Medicine in [address] [address] Angelica Hutchins M.D. [address] [place] [phone] 07/29/2024 7:30 AM CDT Appointment Department of Laboratory Medicine in [address] [address] Angelica Hutchins M.D. [address] [place] [phone] documented as of this encounter Visit Diagnoses Not on filedocumented in this encounter Additional Health Concerns Infection Onset Date Last Indicated Resolved Time Protective Environment 03/08/2023 03/08/2023 Assessment Noted Time PHQ-9 Depression Total Score: 1 11/23/20 19 7:04 PM FURNACE KEEPER documented as of this encounter Care Teams Manager Of Application Development Relationship Specialty Start Date End Date Elsewhere, Pcp PCP - General Pie Crimping Machine Operator 11/24/[address] [address] Laboratory Medicine 09/18/20 documented as of this encounter
--- OUTSIDE RECORDS SUMMARY | 2024-03-12 05:59 | XMS_ITS | Encounter Summary ---
Author Name Unknown Organization [facility] Address [address] [place] [address] Care Team Providers Care Salesperson Corsets Name Role Phone Elsewhere, Pcp Primary Care Provider Unavailabl e Encounter Details Date Type Department Care Team (Latest Contact Info) Description 12/03/2023 7:40 AM [employer] - 12/03/2023 11:59 PM [employer] Hospital Encounter Department of Laboratory Medicine in [address] [phone] Kimmy Mike M.D. [address] [place] [address] Transplant Renal (HCC); Immunodeficiency Due To Drugs (HCC); High 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 Discharge Disposition: Home or Self Care Social [...] often do you attend chur ch or yarsani services? 1 to 4 times per year 02/13/2023 Do you belong to any clubs o r organizations such as orthodox groups, unions, fraternal or athletic groups, or [...] Recorded PHQ-2 Score 0 09/10/2023 [facility] [place] of Occupat ional Health - Occupational Stress [...] place to sleep or slept in a chcf (including now)? No 02/13/2023 Depression Answer Date [...] Assigned at Female 11/13/2018 9:36 AM [employer] Gender Identity Female 11/13/2018 9:36 AM [employer] Sexual Orientation Straight 11/13/2018 9: 36 AM [employer] documented as of this encounter Medications at [...] Do not break, cut, or open capsules 180 capsule 11 08/31/2023 12/27/2023 pantoprazole (PROTONIX) 40 mg EC tablet Take [...] 11/21/2023 01/28/2024 sodium bicarbonate 650 mg tablet TAKE 2 TABLETS (1,300 MG TOTAL) BY MOUTH TWICE A DAY 360 tablet 11/21/2023 12/20/2023 tacrolimus (PROGRAF) 1 mg capsuleIndications:Imm unodeficiency Due [...] Appointment Department of Laboratory Medicine in [address] [phone] Angelica Hutchins M.D. [address] [place] [address] 03/24/2024 7:10 AM CDT Appointment Department of Laboratory Medicine in [address] [phone] Juan Grier APRN, C.N.P., M.S.N. [address] [place] [phone] 03/24/2024 7:20 AM CDT Appointment Department of Laboratory Medicine in [address] [phone] Angelica Hutchins M.D. [address] [place] [phone] 04/07/2024 8:20 AM CDT Appointment Department of Laboratory Medicine in [address] [phone] Angelica Hutcihns M.D. [address] [place] [phone] 04/14/2024 8:00 AM CDT Appointment Department of Laboratory Medicine in [address] [phone] Angelica Hutchins M.D. [address] [place] [phone] 04/15/2024 2:00 PM CDT Clinical Communication Virtual Review in [address] [address] 04/17/2024 11:00 AM CDT Office Visit Department of Neurology in [address] [phone] Wang Bass M.D. [address] [place] [phone] 04/22/2024 7:20 AM CDT Appointment Department of Laboratory Medicine in [address] [phone] Angelica Hutchins M.D. [address] [place] [phone] 04/28/2024 7:20 AM CDT Appointment Department of Laboratory Medicine in [address] [address] Angelica Hutchins M.D. [address] [place] [phone] 04/28/2024 7:40 AM CDT Appointment Department of Laboratory Medicine in [address] [phone] Angelica Hutchins M.D. [address] [place] [phone] 05/05/2024 7:50 AM CDT Appointment Department of Laboratory Medicine in [address] [phone] Angelica Hutchins M.D. [address] [place] [phone] 05/12/2024 7:20 AM CDT Appointment Department of Laboratory Medicine in [address] [address] Angelica Hutchins M.D. [address] [place] [phone] 05/19/2024 7:20 AM CDT Appointment Department of Laboratory Medicine in [address] [phone] Angelica Hutchins M.D. [address] [place] [phone] 05/26/2024 7:20 AM CDT Appointment Department of Laboratory Medicine in [address] [phone] Angelica Hutchins M.D. [address] [place] [phone] 05/26/2024 7:30 AM CDT Appointment Department of Laboratory Medicine in [address] [phone] Angelica Hutchins M.D. [address] [place] [phone] 06/02/2024 7:20 AM CDT Appointment Department of Laboratory Medicine in [address] [phone] Angelica Hutchins M.D. [address] [place] [phone] 06/30/2024 7:20 AM CDT Appointment Department of Laboratory Medicine in [address] [address] Angelica Hutchins M.D. [address] [place] [phone] 06/30/2024 7:30 AM CDT Appointment Department of Laboratory Medicine in [address] [phone] Angelica Hutchins M.D. [address] [place] [phone] 07/29/2024 7:20 AM CDT Appointment Department of Laboratory Medicine in [address] [phone] Angelica Hutchins M.D. [address] [place] [phone] 07/29/2024 7:30 AM CDT Appointment Department of Laboratory Medicine in [address] [phone] Angelica Hutchins M.D. 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 TACROLIMUS LEVEL, B Routine 12/03/2023 8 :07 AM [employer] 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 CBC WITH DIFFERENTIAL, B Routine 12/03/2023 8:07 AM [employer] 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 PHOSPHORUS (INORGANIC), S Routine 12/03/2023 8:07 AM [employer] 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 MAGNESIUM, S Routine 12/03/2023 8:07 AM [employer] 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 BASIC METABOLIC PANEL, S/P Routine 12/03/2023 8:07 AM [employer] 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 LAB URINE ORDERABL ES Performing Organization Address City/State/[facility] Co de Phone Number [facility] [address] [place] [address], [place] [address] * (ABNORMAL) BKV DNA Detect/Quant (12/03/2023 8:07 AM [employer]PER[employer]) BKV DNA Detect/Quant, P 550(A) Undetected IU/mL 12/04/2023 1:27 PM [employer]PER[employer] [facility] Comment: Result in log IU/mL is 2.74. ----ADDITIONAL INFORMATION---- The quantification range of this assay is 22 to 100,000,000 IU/mL (1.34 log to 8.00 log IU/mL). Testing was performed using the chari BKV test ([employer] with the chari [id number] System. Blood (Blood, Venous) 12/03/2023 8:07 AM [employer] 12/04/2023 7:18 AM [employer] Juan Grier APRN C.N.P., M.S.N. LAB MICROBIOLOGY - BLOOD ORDERABLES Performing Organization Address [facility] Co de Phone Number [facility] [address] [place] [address] [facility] [address] [place] [address] [place] [address] * Mycophenolic Acid (12/03/2023 8:07 AM [employer]) Mycophenolic Acid 3.3 1.0 - 3.5 mcg/mL 12/04/2023 10:03 AM [employer] [facility] MPA Glucuronide 53 35 - 100 mcg/mL 12/04/2023 10:03 AM [employer] [facility] Comment: ----ADDITIONAL INFORMATION---- Target steady-state trough concentrations vary depending on the type of transplant, concomitant immunosuppression, clinical/institutional protocols, and time post-transplant. Results should be interpreted in conjunction with this clinical information and any physical signs/symptoms of rejection/toxicity. Testing performed by Liquid Chromatography-Tandem Mass Spectrometry (LC-MS/MS). This test was developed and its performance characteristics determined by [facility] in a manner consistent with CLIA requirements. This test has not been cleared or approved by the U.S. Food and Drug Administration. Blood (Blood, Venous) 12/03/2023 8:07 AM [employer] 12/04/2023 7:31 AM [employer] Kimmy Branham M.D. LAB BLOOD NON ADD- ON Performing Organization Address City/[facility] Co de Phone Number [facility] [address] [place] [address] [facility] [address] [place] [address] [place] [address] * Phosphorus Inorganic (12/03/2023 8:07 AM [employer]) Phosphorus (Inorganic), P 2.5 2.5 - 4.5 mg/dL 12/03/2023 8:29 AM [employer] [facility] Blood (Blood, Venous) 12/03/2023 8:07 AM [employer] 12/03/2023 8:07 AM [employer] Kimmy Branham M.D. LAB BLOOD ADD-ON [facility] [address] [place] [address], [facility] CNFL [address] [address] * (ABNORMAL) Magnesium (12/03/2023 8:07 AM [employer]) Magnesium, P 1.5(L) 1.7 - 2.3 mg/dL 12/03/2023 8:29 AM [employer] [facility] Blood (Blood, Venous) 12/03/2023 8:07 AM [employer] 12/03/2023 8:07 AM [employer] Kimmy Branham M.D. LAB BLOOD ADD-ON [facility] [address] [place] [address], [facility] CN[facility] in [address] [address] * (ABNORMAL) CBC with Differential, Blood (12/03/2023 8:07 AM SUPER[employer]) Hemoglobin 11.2(L) 11.6 - 15.0 g/dL 12/03/2023 8:23 AM [employer] [facility] Hematocrit 33.9(L) 35.5 - 44.9 % 12/03/2023 8:23 AM [employer] [facility] Erythrocytes 3.66(L) 3.92 - 5.13 x10(12)/L 12/03/2023 8:23 AM [employer] [facility] MCV 92.6 78.2 - 97.9 fL 12/03/2023 8:23 AM [employer] [facility] RBC Distrib Width 13.5 12.2 - 16.1 % 12/03/2023 8:23 AM [employer] [facility] Platelet Count 210 157 - 371 x10(9)/L 12/03/2023 8:23 AM [employer] [facility] Leukocytes 7.7 3.4 - 9.6 x10(9)/L 12/03/2023 8:23 AM [employer] [facility] Neutrophils 6.44 1.56 - 6.45 x10(9)/L 12/03/2023 8:23 AM [employer] [facility] Lymphocytes 0.59(L) 0.95 - 3.07 x10(9)/L 12/03/2023 8:23 AM [employer] [facility] Monocytes 0.55 0.26 - 0.81 x10(9)/L 12/03/2023 8:23 AM [employer] [facility] Eosinophils 0.09 0.03 - 0.48 x10(9)/L 12/03/2023 8:23 AM [employer] [facility] Basophils <0.04 0.01 - 0.08 x10(9)/L 12/03/2023 8:23 AM [employer] [facility] Blood (Blood, Venous) 12/03/2023 8:07 AM [employer] 12/03/2023 8:07 AM [employer] Kimmy Branham M.D. LAB BLOOD ADD-ON Performing Organization Address City/State/[facility] Co de Phone Number [facility] [address] [place] [address] CN[facility] [place] [address] * (ABNORMAL) Basic Metabolic Panel (12/03/2023 8:07 AM [employer]PER[employer]) Potassium, P 4.0 3.6 - 5.2 mmol/L 12/03/2023 8:29 AM [employer] [facility] Sodium, P 137 135 - 145 mmol/L 12/03/2023 8:29 AM [employer] [facility] Chloride, P 103 98 - 107 mmol/L 12/03/2023 8:29 AM [employer] [facility] Bicarbonate, P 25 22 - 29 mmol/L 12/03/2023 8:29 AM [employer] [facility] Anion Gap, P 9 7 - 15 12/03/2023 8:29 AM [employer] [facility] BUN (Blood Urea Nitrogen), P 10 6 - 21 mg/dL 12/03/2023 8:29 AM [employer] [facility] Creatinine 0.82 0.59 - 1.04 mg/dL 12/03/2023 8:29 AM [employer] [facility] Estimated GFR (eGFR) 84 >=60 mL/min/BSA 12/03/2023 8:29 AM [employer] [facility] Comment: Estimated GFR calculated using the 2020 CKD_EPI creatinine equation. Calcium, Total, P 8.5(L) 8.6 - 10.0 mg/dL 12/03/2023 8:29 AM [employer] [facility] Glucose, P 103 70 - 140 mg/dL 12/03/2023 8:29 AM [employer] [facility] Blood (Blood, Venous) 12/03/2023 8:07 AM [employer] 12/03/2023 8:07 AM [employer] Kimmy Branham M.D. LAB BLOOD ADD-ON [facility] [address] [place] [address], [facility] CNFL [facility] [place] [address] * Tacrolimus, B (12/03/2023 8:07 AM SUPER[employer]) Tacrolimus, Trough 7.8 5.0-15.0 (Trough) ng/mL 12/04/2023 10:53 AM [facility] Comment: ----ADDITIONAL INFORMATION---- Target steady-state trough concentrations vary depending on the type of transplant, concomitant immunosuppression, clinical/institutional protocols, and time post-transplant. Results should be interpreted in conjunction with this clinical information and any physical signs/symptoms of rejection/toxicity. Testing performed by Liquid Chromatography-Tandem Mass Spectrometry (LC-MS/MS). This test was developed and its performance characteristics determined by [facility] in a manner consistent with CLIA requirements. This test has not been cleared or approved by the U.S. Food and Drug Administration. Blood (Blood, Venous) 12/03/2023 8:07 AM [employer] 12/04/2023 7:09 AM [employer] Kimmy Branham M.D. LAB BLOOD NON ADD- ON [facility] [address] [place] [address] [facility] [address] [place] [address] 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
--- OUTSIDE RECORDS SUMMARY | 2024-03-12 05:59 | XMS_ITS | Encounter Summary ---
Author Name Unknown Organization [facility] Address [address] [place] [address] Care Team Providers Care Calender Operator Helper Name Role Phone Elsewhere, Pcp Primary Care Provider Unavailabl e Encounter Details Date Type Department Care Team (Late st Contact Info) Description 12/20/2023 Orders Only Joon Peña Stambaugh for Transplantation and Clinical Regeneration in [place], [place] [address] [place] [phone] Bipin Chen R.N., C.C.T.C. [address] [place] [phone] Transplant Renal (HCC) (Primary Dx); High Risk Medication; Immunodeficiency (HCC) Social History [...] often do you attend chur ch or cheondoism services? 1 to 4 times [...] Answer Date Recorded PHQ-2 Score 0 09/10/2023 [facility] [place] of Occupat ional Health - Occupational Stress [...] Sex Assigned at Female 11/13/2018 9:36 AM ORDER FILLER Gender Identity Female 11/13/2018 9:36 AM ORDER FILLER Sexual Orientation Straight 11/13/2018 9: 36 AM ORDER FILLER documented as of this encounter Plan of Treatment Upcoming Encounters Date Type Department Care Team (Latest Contact Info) Description 03/17/2024 7:20 AM CDT Appointment Department of Laboratory Medicine in [address] [phone] Angelica Hutchins M.D. [address] [place] [phone] 03/24/2024 7:10 AM CDT Appointment Department of Laboratory Medicine in [address] [phone] Juan Grier, STUART, C.N.P., M.S.N. [address] [place] [phone] 03/24/2024 7:20 AM CDT Appointment Department of Laboratory Medicine in [address] [phone] Angelica Hutchins M.D. [address] [place] [phone] 04/07/2024 8:20 AM CDT Appointment Department of Laboratory Medicine in [address] [phone] Angelica Hutchins M.D. [address] [place] [phone] 04/14/2024 8:00 AM CDT Appointment Department of Laboratory Medicine in [address] [phone] Angelica Hutchins M.D. [address] [place] [phone] 04/15/2024 2:00 PM CDT Clinical Communication Virtual Review in [place], [place] 200 [place] [address] 04/17/2024 11:00 AM CDT Office Visit Department of Neurology in [place], [place] [address] [place] [phone] Wang Bass M.D. [address] [place] [phone] 04/22/2024 7:20 AM CDT Appointment Department of Laboratory Medicine in [address] [address] Angelica Hutchins M.D. [address] [place] [phone] 04/28/2024 7:20 AM CDT Appointment Department of Laboratory Medicine in [address] [phone] Angelica Hutchins M.D. [address] [place] [phone] 04/28/2024 7:40 AM CDT Appointment Department of Laboratory Medicine in [address] [phone] Angelica Hutchins M.D. [address] [place] [phone] 05/05/2024 7:50 AM CDT Appointment Department of Laboratory Medicine in [address] [phone] Angelica Hutchins M.D. [address] [place] [phone] 05/12/2024 7:20 AM CDT Appointment Department of Laboratory Medicine in [address] [address] Angelica Hutchins M.D. [address] [place] [phone] 05/19/2024 7:20 AM CDT Appointment Department of Laboratory Medicine in [address] [address] Angelica Hutchins M.D. [address] [place] [phone] 05/26/2024 7:20 AM CDT Appointment Department of Laboratory Medicine in [address] [address] Angelica Hutchins M.D. [address] [place] [phone] 05/26/2024 7:30 AM CDT Appointment Department of Laboratory Medicine in [address] [address] Angelica Hutchins M.D. [address] [place] [phone] 06/02/2024 7:20 AM CDT Appointment Department of Laboratory Medicine in [address] [phone] Angelica Hutchins M.D. [address] [place] [phone] 06/30/2024 7:20 AM CDT Appointment Department of Laboratory Medicine in [address] [address] Angelica Hutchins M.D. [address] [place] [phone] 06/30/2024 7:30 AM CDT Appointment Department of Laboratory Medicine in [address] [phone] Angelica Hutchins M.D. [address] [place] [phone] 07/29/2024 7:20 AM CDT Appointment Department of Laboratory Medicine in [address] [phone] Angelica Hutchins M.D. [address] [place] [phone] 07/29/2024 7:30 AM CDT Appointment Department of Laboratory Medicine in [address] [address] Angelica Hutchins M.D. [address] [place] [phone] documented as of this encounter Results * (ABNORMAL) Mycophenolic Acid (12/31/2023 9:41 AM ORDER FILLER) [facility] Mycophenolic Acid 5.7(H) 1.0 - 3.5 mcg/mL 01/01/2024 10:50 AM ORDER FILLER [facility] MPA Glucuronide 108(H) 35 - 100 mcg/mL 01/01/2024 10:50 AM ORDER FILLER [facility] Comment: ----ADDITIONAL INFORMATION---- Target steady-state trough concentrations vary depending on the type of transplant, concomitant immunosuppression, clinical/institutional protocols, and time post-transplant. Results should be interpreted in conjunction with this clinical information and any physical signs/symptoms of rejection/toxicity. Testing performed by Liquid Chromatography-Tandem Mass Spectrometry (LC-MS/MS). This test was developed and its performance characteristics determined by [facility] in a manner consistent with CLIA requirements. This test has not been cleared or approved by the U.S. Food and Drug Administration. Blood (Blood, Venous) 12/31/2023 9:41 AM ORDER FILLER 01/01/2024 7:38 AM ORDER FILLER Angelica Hutchins M.D. LAB BLOOD NON A DD-ON Performing Organization Address City/[facility] Co de Phone Number [facility] [address] [place] [place] [address] [facility] [address] [place] [address] [place] [address] * (ABNORMAL) Mycophenolic Acid (12/31/2023 8:12 AM ORDER FILLER) Mycophenolic Acid 27.6(H) 1.0 - 3.5 mcg/mL 01/01/2024 1:07 PM ORDER FILLER [facility] MPA Glucuronide 79 35 - 100 mcg/mL 01/01/2024 1:07 PM ORDER FILLER [facility] Comment: ----ADDITIONAL INFORMATION---- Target steady-state trough concentrations vary depending on the type of transplant, concomitant immunosuppression, clinical/institutional protocols, and time post-transplant. Results should be interpreted in conjunction with this clinical information and any physical signs/symptoms of rejection/toxicity. Testing performed by Liquid Chromatography-Tandem Mass Spectrometry (LC-MS/MS). This test was developed and its performance characteristics determined by [facility] in a manner consistent with CLIA requirements. This test has not been cleared or approved by the U.S. Food and Drug Administration. Blood (Blood, Venous) 12/31/2023 8:12 AM ORDER FILLER 01/01/2024 7:38 AM ORDER FILLER Angelica Hutchins M.D. LAB BLOOD NON A DD-ON Performing Organization Address [facility] Co de Phone Number [facility] [address] [place] [address] [facility] [address] [place] [address] [place] [address] * Mycophenolic Acid (12/31/2023 7:35 AM ORDER FILLER) Mycophenolic Acid 2.8 1.0 - 3.5 mcg/mL 01/01/2024 10:50 AM ORDER FILLER [facility] MPA Glucuronide 55 35 - 100 mcg/mL 01/01/2024 10:50 AM ORDER FILLER [facility] Comment: ----ADDITIONAL INFORMATION---- Target steady-state trough concentrations vary depending on the type of transplant, concomitant immunosuppression, clinical/institutional protocols, and time post-transplant. Results should be interpreted in conjunction with this clinical information and any physical signs/symptoms of rejection/toxicity. Testing performed by Liquid Chromatography-Tandem Mass Spectrometry (LC-MS/MS). This test was developed and its performance characteristics determined by [facility] in a manner consistent with CLIA requirements. This test has not been cleared or approved by the U.S. Food and Drug Administration. Blood (Blood, Venous) 12/31/2023 7:35 AM ORDER FILLER 01/01/2024 7:38 AM ORDER FILLER Angelica Hutchins M.D. LAB BLOOD NON A DD-ON [facility] [address] [place] [address] [facility] [address] [place] [address] [place] [address] documented in this encounter Visit Diagnoses Diagnosis Transplant Renal (HCC)- Primary High Risk Medication Immunodeficiency (HCC) documented in this encounter Additional Health Concerns Infection Onset Date Last Indicated Resolved Time Protective Environment 03/08/2023 03/08/2023 Assessment Noted Time PHQ-9 Depression Total Score: 1 11/23/20 19 7:04 PM ORDER FILLER documented as of this encounter Care Teams Calender Operator Helper Relationship Specialty Start Date End Date Elsewhere, Pcp PCP - General Marine Electrician Helper 11/24/[address] [address] Laboratory Medicine 09/18/20 documented as of this encounter
--- OUTSIDE RECORDS SUMMARY | 2024-03-12 05:59 | XMS_ITS | Encounter Summary ---
Author Name Unknown Organization [facility] Address [address] [place] [address] Care Team Providers Care Perinatal Breastfeeding Assistant Name Role Phone Elsewhere, Pcp Primary Care Provider Unavailabl e Encounter Details Date Type Department Care Team (Latest Contact Info) Description 12/21/2023 8:22 AM RX SPECIALIST - 12/21/2023 11:59 PM [facility] Hospital Encounter Division of Pulmonary Medicine in [place], [place] [address] [place] [address] Radha Julian M.D. 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 1 to 4 times per year 02/13/2023 Do you belong to any clubs o r organizations such as jewish groups, unions, fraternal or athletic groups, or [...] Answer Date Recorded PHQ-2 Score 0 09/10/2023 [facility] [place] of Occupat ional Health - Occupational Stress [...] Sex Assigned at Female 11/13/2018 9:36 AM RX SPECIALIST Gender Identity Female 11/13/2018 9:36 AM RX SPECIALIST Sexual Orientation Straight 11/13/2018 9: 36 AM RX SPECIALIST documented as of this encounter Last Filed Vital Signs Vital Sign Reading Time Taken Comments Blood Pressure - - Pulse 78 12/21/2023 8:45 AM RX SPECIALIST Temperature - - Respiratory Rate - - Oxygen Saturation 99% 12/21/2023 8:45 AM RX SPECIALIST Inhaled Oxygen Concentration - - Weight - [...] day. 360 tablet 12/20/2023 01/18/2024 tacrolimus (PROGRAF) 0.5 mg capsule Take 1 capsule (0.5 mg total) by mouth every morning. Take with 1mg capsule for total of 1.5mg am and 1mg pm 90 capsule 3 12/19/2023 12/27/2023 tacrolimus (PROGRAF) 1 mg capsuleIndications:Imm unodeficiency Due [...] 09/01/2023 01/14/2024 documented as of this encounter Progress Notes * Aubrie Wilkinson R.R.T., Levi. - 12/21/2023 8:26 AM CST Mrs. Holley Santos arrived in [facility] for out-patient Pentamidine treatment. Pre-treated with albuterol nebulizer, patient tolerated well. Aerosol generating procedure done wearing N95 mask. Electronically signed by: Aubrie Wilkinson R.R.T., L.R.T. 12/21/23 8:26 AM RX SPECIALIST SPECIALIST documented in this encounter Plan of Treatment Upcoming Encounters Date Type Department Care Team (Latest Contact Info) Description 03/17/2024 7:20 AM CDT Appointment Department of Laboratory Medicine in [address] [phone] Angelica Hutchins M.D. [address] [place] [phone] 03/24/2024 7:10 AM CDT Appointment Department of Laboratory Medicine in [address] [phone] Juan Grier, STUART, C.N.P., M.S.N. [address] [place] [phone] 03/24/2024 7:20 AM CDT Appointment Department of Laboratory Medicine in [address] [phone] Angelica Hutchins M.D. [address] [place] [phone] 04/07/2024 8:20 AM CDT Appointment Department of Laboratory Medicine in [address] [phone] Angelica Hutchins M.D. [address] [place] [phone] 04/14/2024 8:00 AM CDT Appointment Department of Laboratory Medicine in [address] [phone] Angelica Hutchins M.D. [address] [place] [phone] 04/15/2024 2:00 PM CDT Clinical Communication Virtual Review in [place], [place] 200 [place] [address] 04/17/2024 11:00 AM CDT Office Visit Department of Neurology in [address] [address] Wang Bass M.D. [address] [place] [phone] 04/22/2024 7:20 AM CDT Appointment Department of Laboratory Medicine in [address] [phone] Angelica Hutchins M.D. [address] [place] [phone] 04/28/2024 7:20 AM CDT Appointment Department of Laboratory Medicine in [address] [phone] Angelica Hutchins M.D. [address] [place] [phone] 04/28/2024 7:40 AM CDT Appointment Department of Laboratory Medicine in [address] [place] [address] Angelica Hutchins M.D. [address] [place] [phone] 05/05/2024 7:50 AM CDT Appointment Department of Laboratory Medicine in [address] [phone] Angelica Hutchins M.D. [address] [place] [phone] 05/12/2024 7:20 AM CDT Appointment Department of Laboratory Medicine in [address] [phone] Angelica Hutchins M.D. [address] [place] [phone] 05/19/2024 7:20 AM CDT Appointment Department of Laboratory Medicine in [address] [phone] Angelica Hutchins M.D. [address] [place] [phone] 05/26/2024 7:20 AM CDT Appointment Department of Laboratory Medicine in [address] [phone] Angelica Hutchins M.D. [address] [place] [phone] 05/26/2024 7:30 AM CDT Appointment Department of Laboratory Medicine in [address] [phone] Angelica Hutchins M.D. [address] [place] [phone] 06/02/2024 7:20 AM CDT Appointment Department of Laboratory Medicine in [address] [phone] Angelica Hutchins M.D. [address] [place] [phone] 06/30/2024 7:20 AM CDT Appointment Department of Laboratory Medicine in [address] [address] Angelica Hutchins M.D. [address] [place] [phone] 06/30/2024 7:30 AM CDT Appointment Department of Laboratory Medicine in [address] [address] Angelica Hutchins M.D. [address] [place] [phone] 07/29/2024 7:20 AM CDT Appointment Department of Laboratory Medicine in [address] [phone] Angelica Hutchins M.D. [address] [place] [phone] 07/29/2024 7:30 AM CDT Appointment Department of Laboratory Medicine in [address] [phone] Angelica Hutchins M.D. 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 (HCC) documented in this encounter Administered Medications Inactive Administered Medications - up to 3 most recent administrations Medication Order MAR Action Action Date Dose Rate Site albuterol nebulizer solution 2.5 mg 2.5 mg, nebulization, Once, On Sun12/21/23 at 0845, For 1 dose Given 12/21/2023 8:28 AM RX SPECIALIST 2.5 mg pentamidine nebulizer solution (NEBUPENT) 300 mg (NEBUPENT) 300 mg, inhalation, Once, On Sun12/21/23 at 0900, For 1 dose, Indications: Prophylaxis, medical Given 12/21/2023 8:28 AM RX SPECIALIST 300 mg documented in this encounter Additional Health Concerns Infection Onset Date Last Indicated Resolved Time Protective Environment 03/08/2023 03/08/2023 Assessment Noted Time PHQ-9 Depression Total Score: 1 11/23/20 19 7:04 PM RX SPECIALIST documented as of this encounter Care Teams Perinatal Breastfeeding Assistant Relationship Specialty Start Date End Date Elsewhere, Pcp PCP - General Horticultural Farm Manager 11/24/19 [place] [phone] Laboratory Medicine 09/18/20 documented as of this encounter
--- OUTSIDE RECORDS SUMMARY | 2024-03-12 05:59 | XMS_ITS | Encounter Summary ---
Author Name Unknown Organization [facility] Address [address] [place] [address] Care Team Providers Care Director Social Service Name Role Phone Elsewhere, Pcp Primary Care Provider Unavailabl e Encounter Details Date Type Department Care Team (Latest Contact Info) Description 12/17/2023 7:20 AM TALENT DEVELOPMENT SPECIALIST - 12/17/2023 11:59 PM [facility] Hospital Encounter Department of Laboratory Medicine in [address] [phone] Juan Grier, STUART, C.N.P., M.S.N. [address] [place] [phone] Transplant Renal (HCC); High Risk Medication; Immunodeficiency [...] Answer Date Recorded PHQ-2 Score 0 09/10/2023 [facility] of Occupat ional Health - Occupational Stress [...] Sex Assigned at Female 11/13/2018 9:36 AM TALENT DEVELOPMENT SPECIALIST Gender Identity Female 11/13/2018 9:36 AM TALENT DEVELOPMENT SPECIALIST Sexual Orientation Straight 11/13/2018 9: 36 AM TALENT DEVELOPMENT SPECIALIST documented as of this encounter Medications at [...] CDT Appointment Department of Laboratory Medicine in [address] [address] Angelica Hutchins M.D. [address] [place] [phone] 03/24/2024 7:10 AM CDT Appointment Department of Laboratory Medicine in [address] [phone] Juan Grier, STUART, C.N.P., M.S.N. [address] [place] [phone] 03/24/2024 7:20 AM CDT Appointment Department of Laboratory Medicine in [address] [phone] Angelica Hutchins M.D. [address] [place] [phone] 04/07/2024 8:20 AM CDT Appointment Department of Laboratory Medicine in [address] [phone] Angelica Hutchins M.D. [address] [place] [phone] 04/14/2024 8:00 AM CDT Appointment Department of Laboratory Medicine in [address] [phone] Angelica Hutchins M.D. [address] [place] [phone] 04/15/2024 2:00 PM CDT Clinical Communication Virtual Review in [address] [address] 04/17/2024 11:00 AM CDT Office Visit Department of Neurology in [address] [address] Wang Bass M.D. [address] [place] [phone] 04/22/2024 7:20 AM CDT Appointment Department of Laboratory Medicine in [address] [address] Angelica Hutchins M.D. [address] [place] [phone] 04/28/2024 7:20 AM CDT Appointment Department of Laboratory Medicine in [address] [address] Angelica Hutchins M.D. [address] [place] [phone] 04/28/2024 7:40 AM CDT Appointment Department of Laboratory Medicine in [address] [address] Angelica Hutchins M.D. [address] [place] [phone] 05/05/2024 7:50 AM CDT Appointment Department of Laboratory Medicine in [address] [address] Angelica Hutchins M.D. [address] [place] [phone] 05/12/2024 7:20 AM CDT Appointment Department of Laboratory Medicine in [address] [address] Angelica Hutchins M.D. [address] [place] [phone] 05/19/2024 7:20 AM CDT Appointment Department of Laboratory Medicine in [address] [address] Angelica Hutchins M.D. [address] [place] [phone] 05/26/2024 7:20 AM CDT Appointment Department of Laboratory Medicine in [address] [address] Angelica Hutchins M.D. [address] [place] [phone] 05/26/2024 7:30 AM CDT Appointment Department of Laboratory Medicine in [address] [address] Angelica Hutchins M.D. [address] [place] [phone] 06/02/2024 7:20 AM CDT Appointment Department of Laboratory Medicine in [address] [address] Angelica Hutchins M.D. [address] [place] [phone] 06/30/2024 7:20 AM CDT Appointment Department of Laboratory Medicine in [address] [address] Angelica Hutchins M.D. [address] [place] [phone] 06/30/2024 7:30 AM CDT Appointment Department of Laboratory Medicine in [address] [phone] Angelica Hutchins M.D. [address] [place] [phone] 07/29/2024 7:20 AM CDT Appointment Department of Laboratory Medicine in [address] [address] Angelica Hutchins M.D. [address] [place] [phone] 07/29/2024 7:30 AM CDT Appointment Department of Laboratory Medicine in [address] [phone] Angelica Hutchins M.D. 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) TACROLIMUS LEVEL, B Timed 12/17/2023 7 :35 AM TALENT DEVELOPMENT SPECIALIST CBC WITH DIFFERENTIAL, B Routine 12/17/2023 7:35 AM TALENT DEVELOPMENT SPECIALIST PHOSPHORUS (INORGANIC), S Routine 12/17/2023 7:35 AM TALENT DEVELOPMENT SPECIALIST MAGNESIUM, S Routine 12/17/2023 7:35 AM TALENT DEVELOPMENT SPECIALIST BASIC METABOLIC PANEL, S/P Routine 12/17/2023 7:35 AM TALENT DEVELOPMENT SPECIALIST documented in this encounter Results * Phosphorus Inorganic (12/17/2023 7:35 AM TALENT DEVELOPMENT SPECIALIST) Phosphorus (Inorganic), P 3.3 2.5 - 4.5 mg/dL 12/17/2023 11:59 AM TALENT DEVELOPMENT SPECIALIST CNFL Blood (Blood, Venous) 12/17/2023 7:35 AM TALENT DEVELOPMENT SPECIALIST 12/17/2023 11:39 AM TALENT DEVELOPMENT SPECIALIST Angelica Hutchins M.D. LAB BLOOD ADD-O N Performing Organization Address [facility] Co de Phone Number [address] [address], [facility] [place] [address] * (ABNORMAL) Magnesium (12/17/2023 7:35 AM TALENT DEVELOPMENT SPECIALIST) Magnesium, P 1.5(L) 1.7 - 2.3 mg/dL 12/17/2023 11:59 AM TALENT DEVELOPMENT SPECIALIST [facility] Blood (Blood, Venous) 12/17/2023 7:35 AM TALENT DEVELOPMENT SPECIALIST 12/17/2023 11:39 AM TALENT DEVELOPMENT SPECIALIST Angelica Hutchins M.D. LAB BLOOD ADD-O N Performing Organization Address [facility] Co de Phone Number [address] [address], [facility] [place] [address] * Tacrolimus, B (12/17/2023 7:35 AM TALENT DEVELOPMENT SPECIALIST) Tacrolimus, Trough 7.9 5.0-15.0 (Trough) ng/mL 12/18/2023 10:08 AM TALENT DEVELOPMENT SPECIALIST [facility] Comment: ----ADDITIONAL INFORMATION---- Target steady-state trough concentrations vary depending on the type of transplant, concomitant immunosuppression, clinical/institutional protocols, and time post-transplant. Results should be interpreted in conjunction with this clinical information and any physical signs/symptoms of rejection/toxicity. Testing performed by Liquid Chromatography-Tandem Mass Spectrometry (LC-MS/MS). This test was developed and its performance characteristics determined by [facility] in a manner consistent with CLIA requirements. This test has not been cleared or approved by the U.S. Food and Drug Administration. Blood (Blood, Venous) 12/17/2023 7:35 AM TALENT DEVELOPMENT SPECIALIST 12/18/2023 7:02 AM TALENT DEVELOPMENT SPECIALIST Angelica Hutchins M.D. LAB BLOOD NON A DD-ON [facility] [address] [place] [address] [facility] [address] [place] [address] [place] [address] * Basic Metabolic Panel (12/17/2023 7:35 AM TALENT DEVELOPMENT SPECIALIST) Pathologist [facility] Potassium, P 3.9 3.6 - 5.2 mmol/L 12/17/2023 11:59 AM TALENT DEVELOPMENT SPECIALIST [facility] Sodium, P 141 135 - 145 mmol/L 12/17/2023 11:59 AM TALENT DEVELOPMENT SPECIALIST [facility] Chloride, P 106 98 - 107 mmol/L 12/17/2023 11:59 AM TALENT DEVELOPMENT SPECIALIST [facility] Bicarbonate, P 24 22 - 29 mmol/L 12/17/2023 11:59 AM TALENT DEVELOPMENT SPECIALIST [facility] Anion Gap, P 11 7 - 15 12/17/2023 11:59 AM TALENT DEVELOPMENT SPECIALIST [facility] BUN (Blood Urea Nitrogen), P 16 6 - 21 mg/dL 12/17/2023 11:59 AM TALENT DEVELOPMENT SPECIALIST [facility] Creatinine 0.89 0.59 - 1.04 mg/dL 12/17/2023 11:59 AM TALENT DEVELOPMENT SPECIALIST [facility] Estimated GFR (eGFR) 76 >=60 mL/min/BSA 12/17/2023 11:59 AM TALENT DEVELOPMENT SPECIALIST [facility] Comment: Estimated GFR calculated using the 2020 CKD_EPI creatinine equation. Calcium, Total, P 9.0 8.6 - 10.0 mg/dL 12/17/2023 11:59 AM TALENT DEVELOPMENT SPECIALIST [facility] Glucose, P 94 70 - 140 mg/dL 12/17/2023 11:59 AM TALENT DEVELOPMENT SPECIALIST [facility] Blood (Blood, Venous) 12/17/2023 7:35 AM TALENT DEVELOPMENT SPECIALIST 12/17/2023 11:39 AM TALENT DEVELOPMENT SPECIALIST Angelica Hutchins M.D. LAB BLOOD ADD-O N [facility] [address] [place] [address], [facility] CNFL in [address] [address] * (ABNORMAL) CBC with Differential, Blood (12/17/2023 7:35 AM TALENT DEVELOPMENT SPECIALIST) Hemoglobin 10.8(L) 11.6 - 15.0 g/dL 12/17/2023 12:05 PM TALENT DEVELOPMENT SPECIALIST [facility] Hematocrit 32.6(L) 35.5 - 44.9 % 12/17/2023 12:05 PM TALENT DEVELOPMENT SPECIALIST [facility] Erythrocytes 3.52(L) 3.92 - 5.13 x10(12)/L 12/17/2023 12:05 PM TALENT DEVELOPMENT SPECIALIST [facility] MCV 92.6 78.2 - 97.9 fL 12/17/2023 12:05 PM TALENT DEVELOPMENT SPECIALIST CN[facility] RBC Distrib Width 13.3 12.2 - 16.1 % 12/17/2023 12:05 PM TALENT DEVELOPMENT SPECIALIST CN[facility] Platelet Count 230 157 - 371 x10(9)/L 12/17/2023 12:05 PM TALENT DEVELOPMENT SPECIALIST CNFL Leukocytes 9.9(H) 3.4 - 9.6 x10(9)/L 12/17/2023 12:05 PM TALENT DEVELOPMENT SPECIALIST CNFL Neutrophils 8.53(H) 1.56 - 6.45 x10(9)/L 12/17/2023 12:05 PM TALENT DEVELOPMENT SPECIALIST CNFL Lymphocytes 0.87(L) 0.95 - 3.07 x10(9)/L 12/17/2023 12:05 PM TALENT DEVELOPMENT SPECIALIST CNFL Monocytes 0.42 0.26 - 0.81 x10(9)/L 12/17/2023 12:05 PM TALENT DEVELOPMENT SPECIALIST CNFL Eosinophils 0.07 0.03 - 0.48 x10(9)/L 12/17/2023 12:05 PM TALENT DEVELOPMENT SPECIALIST CNFL Basophils <0.04 0.01 - 0.08 x10(9)/L 12/17/2023 12:05 PM TALENT DEVELOPMENT SPECIALIST CNFL Blood (Blood, Venous) 12/17/2023 7:35 AM TALENT DEVELOPMENT SPECIALIST 12/17/2023 11:39 AM TALENT DEVELOPMENT SPECIALIST Angelica Hutchins M.D. LAB BLOOD ADD-O N [facility] [address] [place] [address], [facility] CNFL in [address] [address] * (ABNORMAL) BKV DNA Detect/Quant (12/17/2023 7:35 AM TALENT DEVELOPMENT SPECIALIST) BKV DNA Detect/Quant, P 421(A) Undetected IU/mL 12/18/2023 5:56 PM TALENT DEVELOPMENT SPECIALIST [facility] Comment: Result in log IU/mL is 2.62. ----ADDITIONAL INFORMATION---- The quantification range of this assay is 22 to 100,000,000 IU/mL (1.34 log to 8.00 log IU/mL). Testing was performed using the chari BKV test ([employer] Blood (Blood, Venous) 12/17/2023 7:35 AM TALENT DEVELOPMENT SPECIALIST 12/18/2023 7:18 AM TALENT DEVELOPMENT SPECIALIST Juan Grier APRN, C.N.P., M.S.N. LAB MICROBIOLOGY - BLOOD ORDERABLES [facility] [address] [place] [address] [facility] [address] 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
--- OUTSIDE RECORDS SUMMARY | 2024-03-12 06:00 | XMS_ITS | Encounter Summary ---
Author Name Unknown Organization [facility] Address [address] [place] [address] Care Team Providers Care Senior Accounting Analyst Name Role Phone Elsewhere, Pcp Primary Care Provider Unavailabl e Reason for Visit * Reason Onset Date Comments BK Management 11/06/2023 Encounter Details Date Type Department Care Team (Latest Contact Info) Description 11/06/2023 Clinical Communication Joon Peña [facility] in [place], [place] [address] [place] [address] Bipin Chen R.N., C.C.T.C. [address] [place] [phone] BK Management Social History Tobacco Use Types Packs/Day Years [...] often do you attend chur ch or amish services? 1 to 4 times per year 02/13/2023 Do you belong to any clubs o r organizations such as rastafari groups, unions, fraternal or athletic groups, or [...] Answer Date Recorded PHQ-2 Score 0 09/10/2023 [facility] of Occupat ional Health - Occupational Stress [...] Sex Assigned at Female 11/13/2018 9:36 AM RESTAURANT KITCHEN MANAGER Gender Identity Female 11/13/2018 9:36 AM RESTAURANT KITCHEN MANAGER Sexual Orientation Straight 11/13/2018 9: 36 AM RESTAURANT KITCHEN MANAGER documented as of this encounter Miscellaneous Notes * Telephone Encounter - Bipin Chen R.N. - 12/19/2023 7:02 AM RESTAURANT KITCHEN MANAGER Images from the original note were not included. Dr. 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 No changes have been made to immunosuppression since it was detected. Just clarifying that no changes are needed and we are just continuing to follow every 2 weeks. Thank you AURANT KITCHEN MANAGER * Telephone Encounter - Bipin Chen R.N. - 11/22/2023 3:04 PM RESTAURANT KITCHEN MANAGER Images from the original note were not included. Dr. Hutchins, BK level continues to rise with getting tacrolimus level into goal. Please advise if any changes are needed. Thank you AURANT KITCHEN MANAGER * Telephone Encounter - Bipin Chen R.N. - 11/06/2023 2:59 PM RESTAURANT KITCHEN MANAGER Reason for Review: BK increase greater than 0.5 log Tacrolimus levels have been running a little higher, will adjust per protocol. Holley was transplanted on 08/30/2023 (Kidney), 07/20/2011 (Kidney), 05/26/1988 (Kidney) Current Medications: Tacrolimus 1.5 mg in AM and 1 mg in PM Prednisone 5 mg daily CellCept 750 mg twice daily Labs: Recent Labs 11/05/23 0737 10/21/23 0747 09/10/23 0742 09/10/23 0741 08/30/23 2040 08/30/23 1449 TACROLIMUS 9.6 8.6 < > 11.2 < > -- HGB 10.8 L 11.0 L < > -- < > -- HCT 32.6 L 33.7 L < > -- < > -- PLT 207 60 L < > -- < > -- WBC 9.2 7.1 < > -- < > -- NEUTROPHILS 7.78 H 5.96 < > -- < > -- HGBA1C -- -- -- -- -- 5.5 NA 137 139 < > 138 < > -- KPLASMA 3.9 -- < > -- < > -- KSERUM -- 4.3 < > 4.3 < > -- BICARB 21 L 22 < > 18 L < > -- CREATININE 0.82 0.82 < > 0.85 < > -- LABPHOS 2.9 3.2 < > 2.7 < > -- CALCIUM 9.0 9.2 < > 8.6 < > -- MG 1.4 L 1.7 < > 1.3 L < > -- GLUCOSE 99 89 < > 114 < > -- ALKPHOS -- -- -- 76 < > -- ALT -- -- -- 15 < > -- AST -- -- -- 14 < > -- MYCOPHENOLIC -- 3.1 -- 1.2 < > -- < > = values in this interval not displayed. Serologies: Recent Labs 11/05/23 0737 09/10/23 0741 BKVDNADETQUP 199 A 32 A Lab Results Component Value Date PROTCREATU 0.14 02/12/2023 ALBCREARATIO 52 (H) 10/21/2023 Immunosuppression Goal Range: 6-8 Current Lab Frequency: every 2 weeks Please advise on any changes or recommendations. Thanks, Bipin Chen R.N. *All labs are now found in [employer] - Lab - Flowsheets. For further review of labs, please review thereor under Synopsis* AURANT KITCHEN MANAGER documented in this encounter Plan of Treatment Upcoming Encounters Date Type Department Care Team (Latest Contact Info) Description 03/17/2024 7:20 AM CDT Appointment Department of Laboratory Medicine in [address] [phone] Angelica Hutchins M.D. [address] [place] [address] 03/24/2024 7:10 AM CDT Appointment Department of Laboratory Medicine in [address] [address] Juan Grier, STUART, C.N.P., M.S.N. [address] [place] [phone] 03/24/2024 7:20 AM CDT Appointment Department of Laboratory Medicine in [address] [address] Angelica Hutchins M.D. [address] [place] [phone] 04/07/2024 8:20 AM CDT Appointment Department of Laboratory Medicine in [address] [phone] Angelica Hutchins M.D. [address] [place] [phone] 04/14/2024 8:00 AM CDT Appointment Department of Laboratory Medicine in [address] [address] Angelica Hutchins M.D. [address] [place] [phone] 04/15/2024 2:00 PM CDT Clinical Communication Virtual Review in [address] [address] 04/17/2024 11:00 AM CDT Office Visit Department of Neurology in [address] [address] Wang Bass M.D. [address] [place] [phone] 04/22/2024 7:20 AM CDT Appointment Department of Laboratory Medicine in [address] [address] Angelica Hutchins M.D. [address] [place] [phone] 04/28/2024 7:20 AM CDT Appointment Department of Laboratory Medicine in [address] [address] Angelica Hutchins M.D. [address] [place] [phone] 04/28/2024 7:40 AM CDT Appointment Department of Laboratory Medicine in [address] [address] Angelica Hutchins M.D. [address] [place] [phone] 05/05/2024 7:50 AM CDT Appointment Department of Laboratory Medicine in [address] [address] Angelica Hutchins M.D. [address] [place] [phone] 05/12/2024 7:20 AM CDT Appointment Department of Laboratory Medicine in [address] [address] Angelica Hutchins M.D. [address] [place] [phone] 05/19/2024 7:20 AM CDT Appointment Department of Laboratory Medicine in [address] [address] Angelica Hutchins M.D. [address] [place] [phone] 05/26/2024 7:20 AM CDT Appointment Department of Laboratory Medicine in [address] [address] Angelica Hutchins M.D. [address] [place] [phone] 05/26/2024 7:30 AM CDT Appointment Department of Laboratory Medicine in [address] [address] Angelica Hutchins M.D. [address] [place] [phone] 06/02/2024 7:20 AM CDT Appointment Department of Laboratory Medicine in [address] [address] Angelica Hutchins M.D. [address] [place] [phone] 06/30/2024 7:20 AM CDT Appointment Department of Laboratory Medicine in [address] [address] Angelica Hutchins M.D. [address] [place] [phone] 06/30/2024 7:30 AM CDT Appointment Department of Laboratory Medicine in [address] [address] Angelica Hutchins M.D. [address] [place] [phone] 07/29/2024 7:20 AM CDT Appointment Department of Laboratory Medicine in [address] [address] Angelica Hutchins M.D. [address] [place] [phone] 07/29/2024 7:30 AM CDT Appointment Department of Laboratory Medicine in [address] [address] Angelica Hutchins M.D. [address] [place] [address] documented as of this encounter Visit Diagnoses Not on filedocumented in this encounter Additional Health Concerns Infection Onset Date Last Indicated Resolved Time Protective Environment 03/08/2023 03/08/2023 Assessment Noted Time PHQ-9 Depression Total Score: 1 11/23/20 19 7:04 PM RESTAURANT KITCHEN MANAGER documented as of this encounter Care Teams Senior Accounting Analyst Relationship Specialty Start Date End Date Elsewhere, Pcp PCP - General Mill Tender Washing 11/24/[address] [address] Laboratory Medicine 09/18/20 documented as of this encounter
--- OUTSIDE RECORDS SUMMARY | 2024-03-12 06:00 | XMS_ITS | Encounter Summary ---
Author Name Unknown Organization [facility] Address [address] [place] [address] Care Team Providers Care Farm Machine Tender Name Role Phone Elsewhere, Pcp Primary Care Provider Unavailabl e Reason for Visit * Reason Comments Med Change Request Encounter Details Date Type Department Care Team (Late st Contact Info) Description 11/07/2023 Refill Joon Ho [facility] in [place], [place] [address] [place] [phone] Juan Grier, STUART, C.N.P., M.S.N. [address] [place] [phone] Med Change Request Social History Tobacco Use [...] often do you attend chur ch or christianity services? 1 to 4 times per year [...] Answer Date Recorded PHQ-2 Score 0 09/10/2023 [facility] [place] of Occupat ional Health - Occupational Stress [...] Sex Assigned at Female 11/13/2018 9:36 AM WINDOW TREATMENT INSTALLER Gender Identity Female 11/13/2018 9:36 AM WINDOW TREATMENT INSTALLER Sexual Orientation Straight 11/13/2018 9: 36 AM WINDOW TREATMENT INSTALLER documented as of this encounter Miscellaneous Notes * Telephone Encounter - Cathy Guidry R.N. - 11/07/2023 1:56 PM WINDOW TREATMENT INSTALLER Asking for 90 day supply - not indicated for short term medication. Patient still has 1 refill on initial RX. OW TREATMENT INSTALLER documented in this encounter Plan of Treatment Upcoming Encounters Date Type Department Care Team (Latest Contact Info) Description 03/17/2024 7:20 AM CDT Appointment Department of Laboratory Medicine in [address] [phone] Angelica Hutchins M.D. [address] [place] [phone] 03/24/2024 7:10 AM CDT Appointment Department of Laboratory Medicine in [address] [phone] Juan Grier, STUART, C.N.P., M.S.N. [address] [place] [phone] 03/24/2024 7:20 AM CDT Appointment Department of Laboratory Medicine in [address] [phone] Angelica Hutchins M.D. [address] [place] [phone] 04/07/2024 8:20 AM CDT Appointment Department of Laboratory Medicine in [address] [phone] Angelica Hutchins M.D. [address] [place] [phone] 04/14/2024 8:00 AM CDT Appointment Department of Laboratory Medicine in [address] [address] Angelica Hutchins M.D. [address] [place] [phone] 04/15/2024 2:00 PM CDT Clinical Communication Virtual Review in [place], [place] 200 [place] [address] 04/17/2024 11:00 AM CDT Office Visit Department of Neurology in [address] [address] Wang Bass M.D. [address] [place] [phone] 04/22/2024 7:20 AM CDT Appointment Department of Laboratory Medicine in [address] [address] Angelica Hutchins M.D. [address] [place] [phone] 04/28/2024 7:20 AM CDT Appointment Department of Laboratory Medicine in [address] [phone] Angelica Hutchins M.D. [address] [place] [phone] 04/28/2024 7:40 AM CDT Appointment Department of Laboratory Medicine in [address] [address] Angelica Hutchins M.D. [address] [place] [phone] 05/05/2024 7:50 AM CDT Appointment Department of Laboratory Medicine in [address] [phone] Angelica Hutchins M.D. [address] [place] [phone] 05/12/2024 7:20 AM CDT Appointment Department of Laboratory Medicine in [address] [address] Angelica Hutchins M.D. [address] [place] [phone] 05/19/2024 7:20 AM CDT Appointment Department of Laboratory Medicine in [address] [address] Angelica Hutchins M.D. [address] [place] [phone] 05/26/2024 7:20 AM CDT Appointment Department of Laboratory Medicine in [address] [address] Angelica Hutchins M.D. [address] [place] [phone] 05/26/2024 7:30 AM CDT Appointment Department of Laboratory Medicine in [address] [address] Angelica Hutchins M.D. [address] [place] [phone] 06/02/2024 7:20 AM CDT Appointment Department of Laboratory Medicine in [address] [address] Angelica Hutchins M.D. [address] [place] [phone] 06/30/2024 7:20 AM CDT Appointment Department of Laboratory Medicine in [address] [address] Angelica Hutchins M.D. [address] [place] [phone] 06/30/2024 7:30 AM CDT Appointment Department of Laboratory Medicine in [address] [address] Angelica Hutchins M.D. [address] [place] [phone] 07/29/2024 7:20 AM CDT Appointment Department of Laboratory Medicine in [address] [address] Angelica Hutchins M.D. [address] [place] [phone] 07/29/2024 7:30 AM CDT Appointment Department of Laboratory Medicine in [address] [address] Angelica Hutchins M.D. [address] [place] [phone] documented as of this encounter Visit Diagnoses Diagnosis Transplant Renal (HCC) documented in this encounter Additional Health Concerns Infection Onset Date Last Indicated Resolved Time Protective Environment 03/08/2023 03/08/2023 Assessment Noted Time PHQ-9 Depression Total Score: 1 11/23/20 19 7:04 PM WINDOW TREATMENT INSTALLER documented as of this encounter Care Teams Farm Machine Tender Relationship Specialty Start Date End Date Elsewhere, Pcp PCP - General Bone Crusher 11/24/19 [facility] [address] [place] [phone] Laboratory Medicine 09/18/20 documented as of this encounter
--- OUTSIDE RECORDS SUMMARY | 2024-03-12 06:00 | XMS_ITS ---
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/30/2023 Marked as Active Follow-up on 08/30/2023 Kidney CoordinatorTXP POST KIDNEY NURSE TEAM 2 [facility] Phone: N/A Fax: N/A Email: N/A Retransplant Diagnosis Organ Primary Contributory Kidney Retransplant/Graft Failure Kidne y Infection History Noted Survival Infection Treatment Organism Resolved 08/31/2023 1 day Calculus Of Gall bladder With Acute Cholecystitis Without Obstruction 08/31/2023 1 day Pneumonia Donor Information Organ ABO Source Meets Risk Criteria HLA Match Mismatches Cross Match Left Kidney Transplanted O Pos Live A: B: DR: Left Kidney Donor Serology Results Anti-HBcAb No results on file HBsAg No results on file HBsAb No results on file HBV DNA No results on file Anti-HCV No results on file HCV RNA No results on file HAV No results on file Anti-HIV I/II No results on file HIV RNA No results on file Anti-HTLV I/II No results on file Coccidioides No results on file Anti-CMV No results on file Quantiferon TB No results on file EBV Total No results on file EBV IgG EBV VCA Ig.0 EBV IgM No results on file EBNA No results on file Measles No results on file Mumps No results on file Rubella No results on file Varicella Zoster No results on file HSV 1 No results on file HSV 2 No results on file Toxoplasma No results on file Cryptococcus Ag No results on file Histoplasma No results on file Strongyloides No results on file Schistosom a No results on file Trypanosoma cruzi No results on file RPR/VDRL No results on file Syphilis No results on file RSV No results on file SARS CoV-2 SARS CoV-2 RNA: Negative HBV KENNY No results on file HCV KENNY No results on file Care Team Name Role Phone Fax Email TXP POST KIDNEY NURSE TEAM 2 [facility] Kidney Coordinator N/A N/A N/A Hal Becerra M.D. Transplant Surgeon [phone] [email or web address] Faviola Thorne M.D. 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
--- OUTSIDE RECORDS SUMMARY | 2024-03-12 06:00 | XMS_ITS | Clinical Summary ---
Author Name Unknown Organization [facility] Address [place], [place] [address] Care Team Providers Care Sql Data Architect Name Role Phone Machelle Lord PA-C Primary Care Provider [phone] Allergies Active Allergy Reactions Criticality Noted Date Comments Hydromorphone Nausea Only 09/22/2017 Morphine Nausea And Vomiting 09/22/2017 Severe Sulfa (Sulfonamide Antibiotics) Anaphylaxis High Medications Medication Sig Dispensed Refills Start Date End Date Status colchicine 0.6 mg tablet Take 0.6 mg by mouth each time if needed for Gout Pain. 07/21/2017 Active furosemide (LASIX) 20 mg tablet Take 40 mg by mouth 2 times daily. 03/31/2016 Active mycophenolate (CELLCEPT) 250 mg capsule Take 250 mg by mouth every 12 hours. 03/31/2016 Active allopurinol (ZYLOPRIM) 100 mg tablet Take 100 mg by mouth once daily if needed (Gout). 02/08/2017 Active lisinopril (PRINIVIL; ZESTRIL) 5 mg tablet Take 10 mg by mouth 2 times daily. Active atorvastatin (LIPITOR) 10 mg tablet Take 10 mg by mouth once daily. Active predniSONE (DELTASONE) 5 mg tablet Take 5 mg by mouth once daily with a meal. Active sodium bicarbonate 650 mg tablet Take 1,300 mg by mouth 2 times daily. Active tacrolimus (PROGRAF) 1 mg capsule Take 1 mg by mouth every 12 hours. Active tacrolimus (PROGRAF) 0.5 mg capsule Take 0.5 mg by mouth every 12 hours. Active Calcium Citrate 250 mg calcium tablet Take 250 mg by mouth every morning. Active aspirin (ECOTRIN) 81 mg enteric coated tablet Take 81 mg by mouth once daily with a meal. Active CHOLECALCIFEROL, VITAMIN D3, (VITAMIN D3 ORAL) Take 1 tablet by mouth every morning. Active Active Problems Problem Noted Date Diagnosed Date Lupus 09/22/2017 Hypertension 09/22/2017 H/O kidney transplant 09/22/2017 Overview: x2 CKD (chronic kidney disease) , stage III - presumed but but unable to find any prior creatinines to confirm her baseline function. 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 09/22/2017 Encounters Date Type Department Care Team Description 01/30/2024 Patient Outreach [facility] - Advanced Care Team [address] [place] [address] Raegan Roberts certified caregiver Management (RN outreach attempt, Engagement Outreach, due to Payer Referral/) 01/23/2024 Patient Outreach [facility] - Care Management Navigation/[facility] [address] [place] [address] Lorena Cronin Care Management Intake (Identification Date/) from Last 3 Months Family History Medical History Relation Name Comments Cancer-prostate Father Stroke Father Cancer-breast Maternal Aunt Maternal side history of breast cancer Relation Name Status Comments Father Maternal Aunt Social History Tobacco Use Types Packs/Day Years Used Date Smoking Tobacco: Never Smokeless Tobacco: Never Alcohol Use Standard Drinks/Week Comments Yes 0 (1 standard drink = 0.6 oz pur e alcohol) occasional radha Social Connections Answer Date Recorded Frequency of Communication with Friends and Fami ly Not on file 02/08/2024 Sex and Gender Information Value Date Recorded Sex Assigned at Not on file Gender Identity Not on file Sexual Orientation Not on file Obstetrics History Last Filed Vital Signs Vital Sign Reading Time Taken Comments Blood Pressure 141/86 09/24/2017 11:20 AM CDT Pulse 79 09/24/2017 7:52 AM CDT Temperature 36.7 ??C (98 ??F) 09/24/2017 11:20 AM CDT Respiratory Rate 18 09/24/2017 11:20 AM CDT Oxygen Saturation 96% 09/24/2017 11:20 AM CDT Inhaled Oxygen Concentration - - Weight 75.8 kg (167 lb 1.6 oz) 09/24/2017 4:00 A M CDT Height 157.5 cm (5' 2) 09/22/2017 1:27 PM CDT Body Mass Index 30.56 09/22/2017 1:27 PM CDT Plan of Treatment Health Maintenance Due Date Last Done Comments Tdap 1978 Depression screening for age 12+ 1979 Hepatitis C screening for age 18-79 1985 Tetanus booster 1987 Colonoscopy through age 75 2012 Lipids for age 45-75 2012 Mammogram for age 45-75 2012 Zoster (shingles) series for age 50+ (1 of 2) 2017 BMI (ht and wt on same day) for age 18+ 09/22/2018 09/22/2017 Pap test for age 21-65 07/28/2019 07/28/2016 COVID-19 vaccine series (2022-24 season) 2023 09/26/2022, 12/22/2021, 07/11/2021, Additional history exists Influenza for age 50-64 07/27/2024 HIV for age 15-65 Completed 09/24/2017 Pneumococcal series for age 6-64 Aged Out No longer eligible based on patient's age to complete this topic Procedures Procedure Name Priority Date/Time Associated Diagnosis Comments ANTI HIV 1/2 Early AM 09/24/2017 7:37 AM CDT SURGICAL RN THIN PREP PAP SCREEN IMAGED Routine 07/28/2016 2:00 PM CDT from Last 3 Months or Most Recently Relevant to Health Maintenance Results * ANTI HIV 1/2 (09/24/2017 7:37 AM CDT) HIV-1/HIV-2 ANTIBODY Non-Reacti ve Non-Reacti ve 09/24/2017 11:08 AM CDT [facility] Blood BLOOD SPECIMEN / Unknown Venipuncture / Unknown 09/24/2017 7:37 AM CDT 09/24/2017 7:41 AM CDT Narrative [facility] - 09/24/2017 11:08 AM CDT HIV-1 p24 and HIV-1/HIV-2 Ab not detected Farida Rachel MD SEND OUTS [facility] [address] [place] [address], [place] * SURGICAL RN THIN PREP PAP SCREEN IMAGED (07/28/2016 2:00 PM CDT) SURGICAL RN CYTOLOGY See Anatomic Pathology case 08/01/2016 1:00 PM CDT [facility] Other (Cervical) Client Collect / Unknown 07/28/2016 2:00 PM CDT 07/31/2016 12:53 PM CDT Norah Romero MD PATHOLOGY/CYTOLOGY [facility] [address] [place] [address], [place] from Last 3 Months or Most Recently Relevant to Health Maintenance Advance Directives * Full Code (Latest Code Status on File) Date Activated Date Inactivated Comments 09/22/2017 6:35 PM 09/24/2017 3:23 PM Question Answer Comments Code Status Discussion: Not Discussed Care Teams Sql Data Architect Relationship Specialty Start Date End Date Machelle Lord PA-C [address] [place] [address] PCP - General Emergency Medicine 01/16/23
--- OUTSIDE RECORDS SUMMARY | 2024-03-12 06:00 | XMS_ITS | Encounter Summary ---
Author Name Unknown Organization [facility] Address [address] [place] [address] Care Team Providers Care Musical Instrument Maker Or Repairer Name Role Phone Elsewhere, Pcp Primary Care Provider Unavailabl e Reason for Visit * Reason Onset Date Comments Tacrolimus Adjustment Protocol 11/06/2023 Encounter Details Date Type Department Care Team (Latest Contact Info) Description 11/06/2023 Clinical Communication Joon Pe[facility] [place] [facility] in [place], [place] [address] [place] [address] Janet Chen R.N., C.C.T.C. [address] [place] [address] Tacrolimus Adjustment Protocol Social History Tobacco Use [...] often do you attend chur ch or hinduism services? 1 to 4 times per year 02/13/2023 Do you belong to any clubs o r organizations such as shinto groups, unions, fraternal or athletic groups, or [...] Date Recorded PHQ-2 Score 0 09/10/2023 [facility] of Occupat ional Health - Occupational Stress [...] Sex Assigned at Female 11/13/2018 9:36 AM SPECIALIST ICU Gender Identity Female 11/13/2018 9:36 AM SPECIALIST ICU Sexual Orientation Straight 11/13/2018 9: 36 AM SPECIALIST ICU documented as of this encounter Miscellaneous Notes * Telephone Encounter - Janet Leach PharmAnn, R.Ph. - 11/06/2023 5:09 PM CST Transplanted Organ and Date:08/30/2023 (Kidney), 07/20/2011 (Kidney), 05/26/1988 (Kidney) Biofuels Processing Technician: TXP POST KIDNEY NURSE TEAM 2 [facility] Active Patient Thresholds Lab Low High Effective Since Comment Tacrolimus Level 6 8 10/09/2023 Tx date 08/30/2023 Recent Labs 11/05/23 0737 10/21/23 0747 10/15/23 0736 10/08/23 0804 10/01/23 0735 TACROLIMUS 9.6 8.6 9.6 9.2 8.1 Dose (mg) 1.5 mg AM 1 mg PM 2 mg AM 1 mg PM 2 mg AM 1 mg pM 2 mg AM 1 mg PM Adjustment Plan: Decrease tacrolimus to 1 mg twice daily. Recheck tacrolimus level in 2 week(s). She may settle out a little low and then tolerated the 1.5 mg AM and 1 mg PM in the future. Updated prescription sent to [facility] ICU * Telephone Encounter - Janet Chen, R.N. - 11/06/2023 2:37 PM SPECIALIST ICU Transplanted Organ and Date:08/30/2023 (Kidney), 07/20/2011 (Kidney), 05/26/1988 (Kidney) RN coordinator: TXP POST KIDNEY NURSE TEAM 2 [facility] Active Patient Thresholds Lab Low High Effective Since Comment Tacrolimus Level 6 8 10/09/2023 Tx date 08/30/2023 Last TACrolimus level and date: Recent Labs 11/05/23 0737 TACROLIMUS 9.6 Current TACrolimus formulation and dose:1.5 mg in AM and 1 mg in PM Was the TACrolimus dose changed within the last 2 weeks?: No Missed doses in last week: No Medications changes in last week: No Vomiting?No Diarrhea? No New onset BARKER? No New onset tremor? No Pharmacy patient uses for immunosuppression: [facility] - ELIJAH Miller Any other pertinent information related to above (please comment on any pertinent answers above)? Patient requesting to check level again prior to making any dose changes.However her BK levels have gone up and am reviewing BK with Dr. Hutchins. [facility] ICU documented in this encounter Plan of Treatment Upcoming Encounters Date Type Department Care Team (Latest Contact Info) Description 03/17/2024 7:20 AM CDT Appointment Department of Laboratory Medicine in [address] [phone] Angelica Hutchins M.D. [address] [place] [phone] 03/24/2024 7:10 AM CDT Appointment Department of Laboratory Medicine in [address] [phone] Juan Grier, STUART, C.N.P., M.S.N. [address] [place] [phone] 03/24/2024 7:20 AM CDT Appointment Department of Laboratory Medicine in [address] [phone] Angelica Hutchins M.D. [address] [place] [phone] 04/07/2024 8:20 AM CDT Appointment Department of Laboratory Medicine in [address] [address] Angelica Hutchins M.D. [address] [place] [phone] 04/14/2024 8:00 AM CDT Appointment Department of Laboratory Medicine in [address] [phone] 281 Angelica Hutchins M.D. [address] [place] [phone] 04/15/2024 2:00 PM CDT Clinical Communication Virtual Review in [place], [place] [address] [place] [address] 04/17/2024 11:00 AM CDT Office Visit Department of Neurology in [place], [place] [address] [place] [phone] Wang Bass M.D. [address] [place] [phone] 04/22/2024 7:20 AM CDT Appointment Department of Laboratory Medicine in [address] [address] Angelica Hutchins M.D. [address] [place] [phone] 04/28/2024 7:20 AM CDT Appointment Department of Laboratory Medicine in [address] [address] Angelica Hutchins M.D. [address] [place] [phone] 04/28/2024 7:40 AM CDT Appointment Department of Laboratory Medicine in [address] [phone] Angelica Hutchins M.D. [address] [place] [phone] 05/05/2024 7:50 AM CDT Appointment Department of Laboratory Medicine in [address] [phone] Angelica Hutchins M.D. [address] [place] [phone] 05/12/2024 7:20 AM CDT Appointment Department of Laboratory Medicine in [address] [phone] Angelica Hutchins M.D. [address] [place] [phone] 05/19/2024 7:20 AM CDT Appointment Department of Laboratory Medicine in [address] [phone] Angelica Hutchins M.D. [address] [place] [phone] 05/26/2024 7:20 AM CDT Appointment Department of Laboratory Medicine in [address] [phone] Angelica Hutchins M.D. [address] [place] [phone] 05/26/2024 7:30 AM CDT Appointment Department of Laboratory Medicine in [address] [address] Angelica Hutchins M.D. [address] [place] [phone] 06/02/2024 7:20 AM CDT Appointment Department of Laboratory Medicine in [address] [address] Angelica Hutchins M.D. [address] [place] [phone] 06/30/2024 7:20 AM CDT Appointment Department of Laboratory Medicine in [address] [phone] Angelica Hutchins M.D. [address] [place] [phone] 06/30/2024 7:30 AM CDT Appointment Department of Laboratory Medicine in [address] [phone] Angelica Hutchins M.D. [address] [place] [phone] 07/29/2024 7:20 AM CDT Appointment Department of Laboratory Medicine in [address] [phone] Angelica Hutchins M.D. [address] [place] [phone] 07/29/2024 7:30 AM CDT Appointment Department of Laboratory Medicine in [address] [phone] Angelica Hutchins M.D. [address] [place] [phone] documented as of this encounter Visit Diagnoses Diagnosis Immunodeficiency Due To Drugs (HCC) High Risk Medication Transplant Renal (HCC) documented in this encounter Additional Health Concerns Infection Onset Date Last Indicated Resolved Time Protective Environment 03/08/2023 03/08/2023 Assessment Noted Time PHQ-9 Depression Total Score: 1 11/23/20 19 7:04 PM SPECIALIST ICU documented as of this encounter Care Teams Musical Instrument Maker Or Repairer Relationship Specialty Start Date End Date Elsewhere, Pcp PCP - General Machinery Repair Maintenance Supervisor 11/24/[address] [phone] Laboratory Medicine 09/18/20 documented as of this encounter
== END 2024-03-11 16:51 | disposition home or self-care (01) ==
LOC: NFLDREF 03-12 05:50
PROVIDERS: PCP Physician Assistant Medical; Referring Provider Physician Assistant Medical; Visit Provider Physician Assistant
DX: R10.9 Unspecified abdominal pain (principal)
CPT/HCPCS: 87086; 87186

== ENCOUNTER 2025-03-05 09:47 | Outpatient (CLI) | payer OTHER, BC, SELFPAY ==
[2025-03-07 05:20] LABS: HPV Source Cervix; HPV, High Risk by TMA Not Detected
== END 2025-03-05 09:48 | disposition home or self-care (01) ==
PROVIDERS: PCP Family Medicine; Visit Provider Registered Nurse
DX: Z12.4 Encounter for screening for malignant neoplasm of cervix (principal); Z11.51 Encounter for screening for human papillomavirus (HPV)
CPT/HCPCS: 87624; 87625; 88141; 88142

== ENCOUNTER 2025-04-23 09:37 | Outpatient (CLI) | payer OTHER, BC, SELFPAY | END 2025-04-23 09:38 | disposition home or self-care (01) | PROVIDERS: PCP Family Medicine; Visit Provider Obstetrics & Gynecology | DX: F52.0 Hypoactive sexual desire disorder (principal) | CPT/HCPCS: 84270; 84402; 84403; 84443 ==

== ENCOUNTER 2025-06-04 08:03 | Outpatient (CLI) | payer OTHER, BC, SELFPAY | END 2025-06-04 08:04 | disposition home or self-care (01) | LOC: FRMREF 08:04 | PROVIDERS: PCP Family Medicine; Visit Provider Obstetrics & Gynecology | DX: N18.4 Chronic kidney disease, stage 4 (severe) (principal); G35 Multiple sclerosis; D84.9 Immunodeficiency, unspecified; Z79.890 Hormone replacement therapy; Z48.22 Encounter for aftercare following kidney transplant | CPT/HCPCS: 84270; 84402; 84403 ==